=== PATIENT | female | born 1995 | race Caucasian/White ===

== ENCOUNTER 2022-10-07 06:57 | Outpatient (OUT) | payer OTHER, SELFPAY ==
[2022-10-07 07:23] LABS: Basophils Absolute Auto 0.1 10^3/uL (0.0-0.1); Basophils Percent Auto 0.8 % (0.2-2.0); Eosinophils Absolute Auto 0.1 10^3/uL (0.0-0.7); Eosinophils Percent Auto 1.3 % (0.9-7.0); Hematocrit 45.2 % (36.0-48.0); Hemoglobin 14.7 g/dL (12.0-16.0); Immature Granulocytes Abs Auto 0.04 10^3/uL (0.00-0.03); Immature Granulocytes Pct Auto 0.5 % (0.0-0.5); Lymphocytes Absolute Auto 1.9 10^3/uL (1.2-3.8); Lymphocytes Percent Auto 22.1 % (20.5-60.0); Mean Corpuscular HGB Conc 32.5 g/dL (29.9-35.2); Mean Corpuscular Hemoglobin 29.1 pg (26.7-34.0); Mean Corpuscular Volume 89.5 fL (81.0-99.0); Mean Platelet Volume 9.4 fL (9.5-13.5); Monocytes Absolute Auto 0.5 10^3/uL (0.3-0.8); Monocytes Percent Auto 6.1 % (1.7-12.0); Neutrophils Absolute Auto 5.8 10^3/uL (1.4-6.5); Neutrophils Percent Auto 69.2 % (43.0-75.0); Platelet Count 305 10^3/uL (150-450); Red Blood Count 5.05 10^6/uL (4.20-5.40); Red Cell Distribution Width 13.1 % (11.0-15.0); White Blood Count 8.4 10^3/uL (4.0-11.0)
[2022-10-07 10:09] LABS: Alanine Aminotransferase 30 U/L (14-59); Albumin Globulin Ratio 0.9; Albumin Level 3.4 g/dL (3.4-5.0); Alkaline Phosphatase 65 U/L (46-116); Anion Gap 11.4; Aspartate Amino Transferase 14 U/L (15-37); BUN Creatinine Ratio 11.4; Bilirubin Total 0.4 mg/dL (0.2-1.0); Calcium 8.9 mg/dL (8.5-10.1); Carbon Dioxide 27.7 mmol/L (21.0-32.0); Chloride 105 mmol/L (98-107); Chol HDL Ratio 2.8; Cholesterol 141 mg/dL (<=200); Estimated GFR (African America >60 (>=60); Estimated GFR (Non-African Ame >60 (>=60); Free T3 2.61 pg/mL (2.18-3.98); Globulin 3.6 g/dL; Glucose 104 mg/dL (74-106); HDL Cholesterol 50 mg/dL (40-60); LDL Cholesterol Calculated 78.4 mg/dL; Potassium 4.1 mmol/L (3.5-5.1); Sodium 140 mmol/L (136-145); Triglycerides 63 mg/dL (<=150); VLDL CHOLESTEROL 12.6 mg/dL
[2022-10-07 10:51] LABS: Estimated Average Glucose 413 mg/dL; Glycohemoglobin A1C >16.0 % (4.5-6.2)
[2022-10-08 11:09] LABS: Insulin 18.7 uIU/mL (2.6-24.9)
== END 2022-10-07 06:58 | disposition home or self-care (01) ==
LOC: LAB 07:01
PROVIDERS: PCP Family Medicine; Visit Provider Family Medicine
DX: Z00.00 Encounter for general adult medical examination without abnormal findings (principal)
CPT/HCPCS: 36415; 80053; 80061; 83036; 83525; 84436; 84443; 84481; 85025

== ENCOUNTER 2023-02-03 11:51 | Outpatient (OUT) | payer OTHER, SELFPAY ==
--- NOTE | 2023-02-03 12:09 | XR_ITS ---
The [address] [address] Patient Name: DEION HUITRON MRN: [id number] date: 1995 Sex: F Assigned Patient Location: LAB Current Patient Location: LAB Accession/Order Number: [id number] Exam Date: 02/03/2023 12:10 Report Date: 02/03/2023 13:01 At the request of: MIKE ALICIA Procedure: XR chest 2V EXAM: XR chest 2V HISTORY: Acute Cough R05.1 for the past 4 days. COMPARISON: 06/06/2021 TECHNIQUE: Upright PA and lateral chest x-ray FINDINGS: The heart is not enlarged and the vasculature is not distended. No acute infiltrate, effusion or pneumothorax is identified. There is been interval clearing of the left lung base. The osseous structures are grossly intact. XR/XR chest 2V IMPRESSION: Interval clearing of the left lung base. There is no evidence of an acute infiltrate or cardiac decompensation at this time, and the overall appearance of the chest is otherwise unchanged. Electronically authenticated by: ARIS HOLLAND Date: 02/03/2023 13:01
[2023-02-03 12:10] LABS: Basophils Absolute Auto 0.1 10^3/uL (0.0-0.1); Basophils Percent Auto 0.5 % (0.2-2.0); Eosinophils Absolute Auto 0.1 10^3/uL (0.0-0.7); Eosinophils Percent Auto 1.1 % (0.9-7.0); Hematocrit 46.3 % (36.0-48.0); Hemoglobin 14.9 g/dL (12.0-16.0); Immature Granulocytes Abs Auto 0.03 10^3/uL (0.00-0.03); Immature Granulocytes Pct Auto 0.3 % (0.0-0.5); Lymphocytes Absolute Auto 1.9 10^3/uL (1.2-3.8); Lymphocytes Percent Auto 16.8 % (20.5-60.0); Mean Corpuscular HGB Conc 32.2 g/dL (29.9-35.2); Mean Corpuscular Hemoglobin 28.5 pg (26.7-34.0); Mean Corpuscular Volume 88.7 fL (81.0-99.0); Mean Platelet Volume 9.7 fL (9.5-13.5); Monocytes Absolute Auto 0.7 10^3/uL (0.3-0.8); Monocytes Percent Auto 5.9 % (1.7-12.0); Neutrophils Absolute Auto 8.3 10^3/uL (1.4-6.5); Neutrophils Percent Auto 75.4 % (43.0-75.0); Platelet Count 322 10^3/uL (150-450); Red Blood Count 5.22 10^6/uL (4.20-5.40); Red Cell Distribution Width 13.3 % (11.0-15.0)
[2023-02-03 12:29] LABS: Alanine Aminotransferase 30 U/L (14-59); Albumin Globulin Ratio 0.9; Albumin Level 3.5 g/dL (3.4-5.0); Alkaline Phosphatase 72 U/L (46-116); Anion Gap 13.7; Aspartate Amino Transferase 23 U/L (15-37); BUN Creatinine Ratio 14.8; Bilirubin Total 0.4 mg/dL (0.2-1.0); Calcium 8.8 mg/dL (8.5-10.1); Carbon Dioxide 28.4 mmol/L (21.0-32.0); Chloride 101 mmol/L (98-107); Estimated GFR (African America >60 (>=60); Estimated GFR (Non-African Ame >60 (>=60); Globulin 4.1 g/dL; Glucose 94 mg/dL (74-106); Potassium 4.1 mmol/L (3.5-5.1); Sodium 139 mmol/L (136-145); Total Protein 7.6 g/dL (6.4-8.2)
[2023-02-03 12:35] LABS: SARS-CoV-2 Ag NEGATIVE (NEGATIVE)
[2023-02-03 14:55] LABS: SARS-CoV-2 NAA NOT DETECTED (NOT DETECTE)
== END 2023-02-03 11:52 | disposition home or self-care (01) ==
LOC: LAB 11:52
PROVIDERS: PCP Family Medicine; Visit Provider Family Medicine
DX: R05.1 Acute cough (principal)
CPT/HCPCS: 36415; 71046; 80053; 85025; 87635; 87811

== ENCOUNTER 2023-03-08 15:18 | Outpatient (REF) | payer OTHER, SELFPAY ==
[2023-03-08 16:31] LABS: SARS-CoV-2 Ag NEGATIVE (NEGATIVE)
[2023-03-09 15:49] LABS: SARS-CoV-2 NAA NOT DETECTED (NOT DETECTE)
== END 2023-03-08 15:19 | disposition home or self-care (01) ==
LOC: LAB 15:18
PROVIDERS: PCP Family Medicine; Visit Provider Family Medicine
DX: J06.9 Acute upper respiratory infection, unspecified (principal)
CPT/HCPCS: 87635; 87811

== ENCOUNTER 2023-03-28 15:22 | Outpatient (REF) | payer OTHER, SELFPAY ==
--- OUTSIDE RECORDS SUMMARY | 2023-03-28 15:28 | XMS_ITS | CCD ---
Author Name Unknown Address [address] [facility] [address] [place] [address] Organization [facility] Care Team Providers Care Cpht Name Role Phone JENNIFER VIVAR Attending Unavailable HOY, MIKE Primary Care Unavailable Ravin, Mike M Primary Care Provider MIKE OSULLIVAN M Primary Care Unavailable JENNIFER HEDRICK Admitting Unavailable JENNIFER HEDRICK Attending Unavailable RAVIN, MIKE M Primary Care Unavailable BRENTON HORTON Admitting Unavailable BRENTON HORTON Attending Unavailable LARISSA SAMPSON Consulting Unavail able KAT ABEBE Admitting Unavailable KAT, ABEBE Attending Unavailable Ravin Mike M Primary Care Provider Rony Osullivanlas Primary Care Provider [phone] Mike Osullivan MD Primary Care Provider [phone] VADIM LOVELACE Referring Unavailable HOY, MIKE M Primary Care Unavailable HOY, MIKE Admitting Unavailable HOY, MIKE Attending Unavailable HOY, MIKE Primary Care Unavailable HOY, MIKE Admitting Unavailable HOY, MIKE Attending Unavailable HOY, MIKE Consulting Unavailable HOY, MIKE Primary Care Unavailable HOY, MIKE Admitting Unavailable HOY, MIKE Attending Unavailable HOY, MIKE Consulting Unavailable HOY, MIKE Primary Care Unavailable HOY, MIKE Admitting Unavailable HOY, MIKE Attending Unavailable HOY, MIKE Consulting Unavailable HOY, MIKE Primary Care Unavailable HOY, MIKE Admitting Unavailable HOY, MIKE Primary Care Unavailable HOY, MIKE Attending Unavailable HOY, MIKE Consulting Unavailable HOY, MIKE Admitting Unavailable HOY, MIKE Attending Unavailable HOY, MIKE Consulting Unavailable HOY, MIKE Primary Care Unavailable DR LIN IBANEZ V Consulting Unavailable CORNELL SPRING Admitting Unavailable CORNELL SPRING Attending Unavailable HOY, MIKE Primary Care Unavailable DR ÁNGEL BABIN Admitting Stiven BABIN, DR ÁNGEL Garcia Attending Stiven BABIN, DR ÁNGEL Garcia Consulting MIKE Huffman Primary Care Unavailable ADALID PEREZ Consulting Unavailable Allergies Allergy Classification Reported Allergen(s) Allergy Type Date of Onset Reaction(s) Facility (5 sources) docosanol; Translations: [Unknown] Drug Allergy 9 Swelling [facility] Repository (1 source) docosanol Drug Allergy [facility] Repository (1 source) Sulfamethoxazole / Trimethoprim Drug Allergy 0 [facility] Repository Medications Current Medications Medication Drug Class(es) Dates Sig (Normalized) Sig (Original) acetaminophen 325 mg oral tablet (2 sources) Start: 11-28-2018 End: 11-28-2018 650 mg, Oral, EVERY 4 HOURS PRN, Fever, For temp greater than 100.5 F (38 C), Starting Tu11/28/18 at 2353 Maximum dose of acetaminophen is 4000 mg from all sources in 24 hours. cefTRIAXone (ROCEPHIN) 1 g in sterile water 10 mL IV syringe (1 source) Start: 11-29-2018 cefTRIAXone (ROCEPHIN) 1 g in sterile water 10 mL IV syringe docusate sodium 100 mg oral capsule (4 sources) Start: 11-29-2018 take 1 capsule by mouth once daily docusate sodium (COLACE, DULCOLAX) 100 MG CAPS Take 100 mg by mouth daily 30 capsule 0 12/01/2018 Active 0.3 ml enoxaparin sodium 100 mg/ml prefilled syringe (1 source) Low Molecular Weight Heparin Start: 11-29-2018 enoxaparin (LOVENOX) injection 30 mg ergocalciferol 1.25 mg oral capsule (2 sources) Provitamin D2 Compound Start: 01-28-2020 take 1 capsule by mouth every week vitamin D (ERGOCALCIFEROL) 1.25 MG (06438 UT) CAPS capsule Take 1 capsule by mouth once a week 4 capsule 5 01/28/2020 Active ferrous sulfate 325 mg oral tablet (4 sources) Start: 12-01-2018 take 1 tablet by mouth once daily at breakfast ferrous sulfate 325 (65 Fe) MG tablet Take 1 tablet by mouth daily (with breakfast) 30 tablet 0 12/01/2018 Active Start: 11-29-2018 ferrous sulfat e tablet 325 mg hydrOXYzine pamoate 25 mg oral capsule (3 sources) Antihistamine take 1 capsule by mouth three times daily as needed for anxiety hydrOXYzine (VISTARIL) 25 MG capsule Take 25 mg by mouth 3 times daily as needed for Anxiety 0 Active ibuprofen 600 mg oral tablet (1 source) Nonsteroidal Anti-inflammatory Drug Start: ibuprofen (ADVIL;MOTRIN) tablet 600 mg ketoconazole 20 mg/ml topical cream (1 source) Azole Antifungal Start: ketoconazole (NIZORAL) 2 % cream Apply topically twice daily. 30 g 0 01/29/2021 Active magnesium hydroxide 80 mg/ml oral suspension (1 source) Start: take 30 mL by mouth once daily as needed for constipation 30 mL, Oral, DAILY PRN, Constipation, Starting Tue11/28/18 at 2353 First line therapy for constipation. 2 ml ondansetron 2 mg/ml injection (1 source) Serotonin-3 Receptor Antagonist Start: 4 mg, Intravenous, EVERY 6 HOURS PRN, Nausea, Starting Tue11/28/18 at 2353 polyethylene glycol 3350 34391 mg powder for oral solution (1 source) Osmotic Laxative Start: End: take 17 g by mouth once daily as needed for constipation polyethylene glycol (GLYCOLAX) powder Take 17 g by mouth daily as needed (constipation) 510 g 0 11/30/2018 12/30/2018 Active MV-Min-Fe Fum-FA-DHA ( 1 PO) (3 sources) take 1 tablet by mouth once daily, then take 1 tablet by mouth MV-Min-Fe Fum-FA-DHA ( 1 PO) Take 1 tablet by mouth daily 0 Active vitamin with Ca-Iron-FA 27-1 mg Tab (1 source) take 1 tablet by mouth once daily vitamin with Ca-Iron-FA 27-1 mg Tab Take 1 tablet by mouth daily . 0 Active 3 ml sodium chloride 9 mg/ml injection (6 sources) Start: 10 mL, Intravenous, EVERY 12 HOURS SCHEDULED (2 times per day), First dose on Tue11/29/18 at 0900 Start: 11-29-2018 Intravenous, a t 125 mL/hr, CONTINUOUS, Starting Tue11/29/18 at 0015 Start: 11-28-2018 take 10 mL intraveno us route once as needed 10 mL, Intravenous, PRN, Line Care, After every IV line use, Starting 11/28/18 at 2353 Start: 11-28-2018 sodium chlorid e flush 0.9 % injection 10 mL Start: 11-28-2018 End: 11-28-2018 0.9 % sodium chloride IV keisha us 1,986 mL sulfamethoxazole 800 mg / trimethoprim 160 mg oral tablet (1 source) Dihydrofolate Reductase Inhibitor Antibacterial, Sulfonamide Antimicrobial Start: 11-30-2018 End: 12-10-2018 take 1 tablet by mouth twice daily sulfamethoxazole-trimethoprim (BACTRIM DS) 800-160 MG per tablet Take 1 tablet by mouth 2 times daily for 10 days 20 tablet 0 11/30/2018 12/10/2018 Active valACYclovir 500 mg oral tablet (4 sources) Herpesvirus Nucleoside Analog DNA Polymerase Inhibitor, Herpes Simplex Virus Nucleoside Analog DNA Polymerase Inhibitor, Herpes Zoster Virus Nucleoside Analog DNA Polymerase Inhibitor take 2 tablets by mouth three times daily valACYclovir (VALTREX) 500 MG tablet Take 1,000 mg by mouth 3 times daily 0 Active take 1 tablet by mouth twice stanislav ly valACYclovir (VALTREX) 1000 MG tablet Take 1,000 mg by mouth 2 (two) times a day . 0 Active vancomycin (VANCOCIN) 1,500 mg in dextrose 5 % 500 mL IVPB (1 source) Start: 11-30-2018 vancomycin (VA NCOCIN) 1,500 mg in dextrose 5 % 500 mL IVPB vancomycin (VANCOCIN) intermittent dosing (placeholder) (1 source) Start: 11-28-2018 vancomycin (VA NCOCIN) intermittent dosing (placeholder) Completed/Discontinued Medications Medication Drug Class(es) Dates Sig (Normalized) Sig (Original) calcium chloride 0.0014 meq/ml / potassium chloride 0.004 meq/ml / sodium chloride 0.103 meq/ml / sodium lactate 0.028 meq/ml injectable solution (1 source) Start: 11-28-2018 End: 11-29-2018 lactated ringers infusion 1,000 mL 50 ml clindamycin 18 mg/ml injection (2 sources) Lincosamide Antibacterial Start: 11-28-2018 End: 11-29-2018 clindamycin (CLEOCIN) 900 mg in dextrose 5 % 50 mL IVPB gentamicin (GARAMYCIN) 120 mg in dextrose 5 % 100 mL IVPB (1 source) Start: 11-28-2018 End: 11-28-2018 gentamicin (GARAMYCIN) 120 mg in dextrose 5 % 100 mL IVPB gentamicin (GARAMYCIN) 214 mg in dextrose 5 % 100 mL IVPB (1 source) Start: 11-29-2018 End: 11-29-2018 gentamicin (GARAMYCIN) 214 mg in dextrose 5 % 100 mL IVPB microencapsulated potassium chloride 20 meq extended release oral tablet (1 source) Start: 11-29-2018 End: 11-29-2018 potassium chloride (KLOR-CON M) extended release tablet 40 mEq vancomycin 750 mg injection (2 sources) Glycopeptide Antibacterial Start: 11-29-2018 End: 11-29-2018 vancomycin (VANCOCIN) 750 MG injection Start: 11-29-2018 End: 11-29-2018 vancomycin (VANCOCIN) 1 g in jection vancomycin (VANCOCIN) 1,750 mg in dextrose 5 % 500 mL IVPB (1 source) Start: 11-28-2018 End: 11-30-2018 vancomycin (VANCOCIN) 1,750 mg in dextrose 5 % 500 mL IVPB Problems Active Problems Problem Classification Problem Date Documented Da te Episodic/Chronic Anxiety disorders (5 sources) Anxiety disorder; Translations: [Anxiety disorder, unspecified] Onset: 09-22-2021 11-29-2018 Chronic Asthma (9 sources) Asthma; Translations: [Unspecified asthma, uncomplicated] Onset: 07-30-2021 11-29-2018 Chronic Congestive heart failure; nonhypertensive (1 source) Unspecified diastolic (congestive) heart failure; Translations: [UNSPECIFIED DIASTOLIC HEART FAILURE] Onset: 12-02-2021 Chronic Early or threatened labor (3 sources) Premature delivery; Translations: [ labor with delivery, unspecified trimester, not applicable or unspecified] 11-25-2018 Episodic Hemorrhage during ; abruptio placenta; placenta previa (1 source) Bleeding from female genital tract during ; Translations: [Vaginal bleeding in ] Hypertension with complications and secondary hypertension (1 source) Hypertensive heart disease with heart failure; Translations: [HTN HEART DISEASE W/HEART FAIL] Onset: 12-02-2021 Chronic Menstrual disorders (1 source) Disorder of menstruation; Translations: [Irregular menstruation, unspecified] Chronic Residual codes; unclassified (3 sources) Tobacco user; Translations: [Tobacco abuse] Onset: 11-29-2018 11-29-2018 Chronic Skin and subcutaneous tissue infections (3 sources) Cellulitis of right lower limb; Translations: [Cellulitis of right leg] Onset: 11-29-2018 11-29-2018 Substance-related disorders (1 source) Nicotine dependence, cigarettes, uncomplicated; Translations: [NICOTINE DEPEND CIGARETTES UNCOMP] Onset: 09-22-2021 Chronic Unclassified (4 sources) LOW BACK PAIN, UNSPECIFIED; Translations: [LOW BACK PAIN, UNSPECIFIED] Onset: 09-22-2021 Unclassified (4 sources) CONTACT W/AND (SUSP) EXPOS COVID-19; Translations: [CONTACT W/AND (SUSP) EXPOS COVID-19] Onset: 08-04-2021 Unclassified (1 source) COUGH, UNSPECIFIED; Translations: [COUGH, UNSPECIFIED] Onset: 03-20-2022 Viral infection (1 source) COVID-19; Translations: [COVID-19] Onset: 03-20-2022 Past or Other Problems Problem Classification Problem Date Documented Da te Episodic/Chronic Cardiac dysrhythmias (1 source) Palpitations; Translations: [PALPITATIONS] Onset: 08-04-2021 Episodic Deficiency and other anemia (4 sources) Anemia; Translations: [Anemia, unspecified] Onset: 11-29-2018 11-29-2018 Episodic Deficiency and other anemia (1 source) Anemia, unspecified; Translations: [ANEMIA UNSPECIFIED] Onset: 12-02-2021 Episodic Diabetes mellitus without complication (1 source) Other abnormal glucose; Translations: [OTHER ABNORMAL GLUCOSE] Onset: 12-02-2021 Episodic Hemorrhage during ; abruptio placenta; placenta previa (3 sources) Hemorrhage in early ; Translations: [Antepartum hemorrhage] Onset: 11-24-2018 11-24-2018 Episodic Other female genital disorders (1 source) Vaginal bleeding; Translations: [Abnormal uterine and vaginal bleeding, unspecified] Resolved: 11-25-2018 11-25-2018 Chronic Other female genital disorders (2 sources) Vaginal bleeding; Translations: [Vaginal bleeding] Resolved: 11-25-2018 11-25-2018 Episodic Other upper respiratory disease (1 source) Nasal congestion; Translations: [NASAL CONGESTION] Onset: 03-20-2022 Episodic Other upper respiratory infections (1 source) Acute recurrent frontal sinusitis; Translations: [ACUTE RECURRENT FRONTAL SINUSITIS] Onset: 08-04-2021 Episodic Residual codes; unclassified (1 source) Tobacco user; Translations: [Tobacco use] Onset: 11-29-2018 11-29-2018 Episodic Residual codes; unclassified (4 sources) Generalized edema; Translations: [GENERALIZED EDEMA] Onset: 12-04-2021 Episodic Residual codes; unclassified (4 sources) Localized edema; Translations: [LOCALIZED EDEMA] Onset: 11-25-2021 Episodic Septicemia (except in labor) (4 sources) Sepsis; Translations: [Sepsis, unspecified organism] Onset: 11-28-2018 11-29-2018 Episodic Skin and subcutaneous tissue infections (1 source) Cellulitis of right lower limb; Translations: [Cellulitis of right lower limb] Onset: 11-29-2018 11-29-2018 Episodic Sprains and strains (1 source) Sprain of unspecified parts of lumbar spine and pelvis, initial encounter; Translations: [SPRAIN UNS PARTS LUMB SPN PELV INIT] Onset: 09-22-2021 Episodic Unclassified (1 source) LOW BACK PAIN, UNSPECIFIED; Translations: [LOW BACK PAIN, UNSPECIFIED] Onset: 06-16-2022 Unclassified (1 source) CONTACT W/AND (SUSP) EXPOS COVID-19; Translations: [CONTACT W/AND (SUSP) EXPOS COVID-19] Onset: 03-18-2022 Urinary tract infections (4 sources) Urinary tract infectious disease; Translations: [Urinary tract infection, site not specified] Onset: 11-29-2018 Resolved: 12-29-2018 11-29-2018 Episodic Results Test Name Value Interpretation Reference Range Facility XR Chest 2 Views*on 05-13-19 23 XR Chest 2 Views* HISTORY: Cough and shortness of breath COMPARISON: None available TECHNIQUE: Frontal and lateral views of the chest FINDINGS: The cardiomediastinal silhouette is within normal limits. No pneumothorax, pleural effusion, or consolidation. Bones of the thorax appear intact. IMPRESSION: No radiographic evidence of acute intrathoracic process. Report reported and signed by Hitesh Norman on 05/13/2022 1439 Normal [facility] Covid-19 PCR ([facility])on 02-19 SARS-CoV-2 (COVID-19) RNA CLIFF+probe Ql (Unsp spec) Detected Critically abnormal NOT DETECTED [facility] Comment on above: Result Comment: This test is not yet approved or cleared by the [place] FDA. When there are no FDA-approved or cleared tests available, and other criteria are met, FDA can make tests available under an emergency access mechanism called an Emergency Use Authorization (EUA). The EUA for this test is supported by the [place] of Health and Human Service's declaration that circumstances exist to justify the emergency use of in vitro diagnostics for the detection and/or diagnosis of the virus that causes COVID-19. This EUA will remain in effect for the duration of the COVID-19 declaration justifying emergency of IVDs, unless it is terminated or revoked by the FDA (after which the test may no longer be used). Performed By: #### C VDTB #### [facility] [address] [place] [address] Dr. Lilli Soriano INFLUENZA A AND B AGon 03-18 [facility] SEE BELOW Normal [facility] Comment on above: Result Comment: Nega tive for Flu A protein angiten. Infection due to Flu A cannot be ruled out. Flu A angiten in the sample may be below the detection limit of the test. Performed By: #### I NFLUAB #### [facility] [address] [place] [address] Dr. Lilli Sor[facility] SEE BELOW Normal [facility] Comment on above: Result Comment: Nega tive for Flu B protein antigen. Infection due to Flu B cannot be ruled out. Flu B antigen in the sample may be below the detection limit of the test. Performed By: #### I NFLUAB #### [facility] [address] [place] [address] Dr. Lilli Soriano INFLUENZA A AG Negative Normal NEGATIVE SEE COMMENT [facility] Comment on above: Performed By: #### I NFLUAB #### [facility] [address] [place] [address] Dr. Lilli Soriano INFLUENZA B AG Negative Normal NEGATIVE SEE COMMENT [facility] Comment on above: Performed By: #### I NFLUAB #### [facility] [address] [address] [address] Lilli Soriano US Pelvic, Transvaginalon US Pelvic, Transvaginal FINDINGS: Transabdominal and transvaginal imaging was performed. Uterus 8.7 x 4.9 x 3.9 cm Endometrium 2 mm Right Ovary2.7 x 2.2 x 3.4 cm Left Ovary5.0 x 3.3 x 3.7 cm (cyst) Normal uterine orientation and morphology. Normal myometrium and endometrium. Normal right ovary. Left ovarian 2.0 x 2.2 x 2.6 cm benign simple cyst. No pelvic mass or pelvic fluid. IMPRESSION: 1. Left ovarian simple cyst. 2. Normal uterus. Report reported and signed by Burton Mcdaniel on 12/24/2021 0958 Normal [facility] Covid-19 PCR ([facility])on 11-21 SARS-CoV-2 (COVID-19) RNA CLIFF+probe Ql (Unsp spec) Not detected Normal NOT DETECTED [facility] Comment on above: Result Comment: This test is not yet approved or cleared by the [place] FDA. When there are no FDA-approved or cleared tests available, and other criteria are met, FDA can make tests available under an emergency access mechanism called an Emergency Use Authorization (EUA). The EUA for this test is supported by the [place] of Health and Human Service's (HHS's) declaration that circumstances exist to justify the emergency use of in vitro diagnostics for the detection and/or diagnosis of the virus that causes COVID-19. This EUA will remain in effect (meaning this test can be used) for the duration of the COVID-19 declaration justifying emergency of IVDs, unless it is terminated or revoked by FDA (after which the test may no longer be used). When diagnostic testing is negative, the possibility of a false negative should be considered in the context of a patient's recent exposures and the presence of clinical signs and symptoms consistent with SARS-CoV-2. Performed By: #### C VDTBH #### [facility] [address] [id number] [address] Lilli Soriano VC VENOUS REFLUX GRACIELA LMTon 0 12-04-2021 VC VENOUS REFLUX GRACIELA LMT Patient: DEION CUMMINGS Exam Date: 12/04/2021 : 1995 Gender:F Ordering : DR MIKE OSULLIVAN . Admission #: [id number] Family : Order #: [id number] CLICK HERE TO VIEW EXAM RADIOLOGY REPORT PROCEDURE: VEIN CENTER ULTRASOUND VENOUS REFLUX BILATERAL LIMTED COMPARISON: None. INDICATIONS: Localized edema R60.0 TECHNIQUE: Duplex imaging of the lower extremity to assess the deep and superficial venous system for the presence of deep or superficial venous incompetence and to document the location and severity of disease. The study includes evaluation of the great saphenous vein (GSV), anterior accessory saphenous vein (AASV) and small saphenous vein (SSV). Patient scanned in reverse Trendelenburg and standing. FINDINGS: RIGHT LOWER EXTREMITY: Saphenofemoral Junction Reflux: Yes 9.6mm 0.6 sec GSV: Diam (mm) Reflux/ Time (sec) Proximal Thigh 4.3 Yes 0.5 Mid Thigh 5.0 Yes 0.4 Distal Thigh 7.8 Yes 0.7 Prox Calf 3.6 Yes 0.7 Mid Calf 3.2 Yes 0.4 Saphenopopliteal Junction Reflux: 7.2mm Yes 1.2 SSV: Proximal Calf 4.7 Yes 0.5 Mid Calf 4.0 No AASV: Proximal Thigh 5.2 Yes 0.7 Mid Thigh 3.5 Yes 0.4 Distal Thigh Thrombi: No acute or chronic thrombus visualized. Compressibility: Normal Flow: Normal Preforator: Dist/med calf 3.1mm with 0s reflux. Dist/med calf 3.2mm with 0.5s reflux. Tech Note: Incompetent SFJ and SPJ. Patent varicose vein mid/med calf 2.6mm with 0.4s reflux. Patent varicose vein mid/ant calf 2.1mm with 0.5s reflux. Patent varicose vein dist/med calf 3.03 mm with 0s reflux. LEFT LOWER EXTREMITY: Saphenofemoral Junction Reflux: Yes 10.7 mm 2.2 sec GSV: Diam (mm) Reflux/Time (sec) Proximal Thigh 7.1 Yes 1.4 Mid Thigh 4.9 No Distal Thigh 8.3 Yes 0.9 Prox Calf 3.9 Yes 0.9 Mid Calf 3.2 Yes 1.0 Saphenopopliteal Junction Relux: 7.4 mm Yes 1.4 SSV: Proximal Calf 5.6 Yes 2.6 Mid Calf 4.7 No AASV: Proximal Thigh 9.4 Yes 1.1 Mid Thigh 4.7 Yes 1.0 Distal Thigh Thrombi: No acute or chronic thrombus visualized. Compressibility: Normal Flow: Normal Dispatch Officer: Dist/med calf 2.1mm with 0s reflux. Dist/med calf 6.1mm with 0s reflux. Tech Note: Incompetent SFJ and SPJ. Patent varicose vein prox/med calf 3.4mm with 0.4s reflux. CONCLUSION: 1. Mild bilateral great saphenous vein venous insufficiency, left greater than right 2. Mild right and moderate left small saphenous vein venous insufficiency 3. Minimal right and mild left anterior accessory saphenous vein venous insufficiency 4. Incompetent bilateral varicose veins Dictated by: Lin Ibanez MD on 12/04/2021 at 09:36 Approved by: Lin Ibanez MD on 12/04/2021 at 09:37 Normal [facility] INSULINon 11-26-2021 Insulin 21.8 uIU/mL Normal 2.6-24.9 [facility] Comment on above: Performed By: #### I NSULIN #### [facility] [address] [address] [address] Lilli Soriano T4, T3U, FTI LABCORPon 11-26 Free Thyroxine Index 2.2 Normal 1.2-4.9 [facility] Comment on above: Performed By: #### B ORTHODONTIC LABORATORY TECHNICIAN, TSH, LIPID, CMP #### [facility] [address] [address] [address] Lilli Soriano T3 Uptake 30 % Normal 24-39 [facility] Comment on above: Performed By: #### B ORTHODONTIC LABORATORY TECHNICIAN, TSH, LIPID, CMP #### [facility] [address] [address] [address] Lilli Soriano T4 [Mass/Vol] 7.3 ug/dL Normal 4.5-12.0 [facility] Comment on above: Performed By: #### B ORTHODONTIC LABORATORY TECHNICIAN, TSH, LIPID, CMP #### [facility] [address] [address] [address] Lilli Soriano BNPon 11-25-2021 Natriuretic peptide B (Bld) [Mass/Vol] 35.0 pg/mL Normal <=450.0 [facility] Comment on above: Performed By: #### B ORTHODONTIC LABORATORY TECHNICIAN, TSH, LIPID, CMP #### [facility] [address] [place] [address] Dr. Lilli Soriano CBC AUTO DIFFon 11-25-2021 BASO # 0.0 103/ul Normal 0.0-0.1 [facility] Comment on above: Performed By: #### B ORTHODONTIC LABORATORY TECHNICIAN, TSH, LIPID, CMP #### [facility] [address] [place] [address] Dr. Lilli Soriano Basophils/100 WBC (Bld) 0.5 % Normal 0.2-2.0 [facility] Comment on above: Performed By: #### B ORTHODONTIC LABORATORY TECHNICIAN, TSH, LIPID, CMP #### [facility] [address] [place] [address] Dr. Lilli Soriano EO # 0.1 103/ul Normal 0.0-0.7 [facility] Comment on above: Performed By: #### B ORTHODONTIC LABORATORY TECHNICIAN, TSH, LIPID, CMP #### [facility] [address] [place] [address] Dr. Lilli Soriano Eosinophils/100 WBC (Bld) 1.7 % Normal 0.9-7.0 [facility] Comment on above: Performed By: #### B ORTHODONTIC LABORATORY TECHNICIAN, TSH, LIPID, CMP #### [facility] [address] [place] [address] Dr. Lilli Soriano Erythrocyte distribution width (RBC) [Ratio] 13.6 % Normal 11.0-15.0 [facility] Comment on above: Performed By: #### B ORTHODONTIC LABORATORY TECHNICIAN, TSH, LIPID, CMP #### [facility] [address] [place] [address] Dr. Lilli Soriano Hematocrit (Bld) [Volume fraction] 42.6 % Normal 36.0-48.0 [facility] Comment on above: Performed By: #### B ORTHODONTIC LABORATORY TECHNICIAN, TSH, LIPID, CMP #### [facility] [address] [place] [address] Dr. Lilli Soriano Hemoglobin (Bld) [Mass/Vol] 13.6 g/dL Normal 12.0-16.0 [facility] Comment on above: Performed By: #### B ORTHODONTIC LABORATORY TECHNICIAN, TSH, LIPID, CMP #### [facility] [address] [place] [address] Dr. Lilli Soriano IG # 0.04 10e3/ul Critically high 0.00-0.03 [facility] Comment on above: Performed By: #### B ORTHODONTIC LABORATORY TECHNICIAN, TSH, LIPID, CMP #### [facility] [facility] [address] [place] [address] Dr. Lilli Soriano IG % 0.5 % Normal 0.0-0.5 [facility] Comment on above: Performed By: #### B ORTHODONTIC LABORATORY TECHNICIAN, TSH, LIPID, CMP #### [facility] [address] [place] [address] Dr. Lilli Soriano LYMPH # 1.7 103/ul Normal 1.2-3.8 [facility] Comment on above: Performed By: #### B ORTHODONTIC LABORATORY TECHNICIAN, TSH, LIPID, CMP #### [facility] [address] [place] [address] Dr. Lilli Soriano Lymphocytes/100 WBC (Bld) 19.9 % Critically low 20.5-60.0 [facility] Comment on above: Performed By: #### B ORTHODONTIC LABORATORY TECHNICIAN, TSH, LIPID, CMP #### [facility] [address] [place] [address] Dr. Lilli Soriano MANUAL DIFF REQ NO Normal [facility] Comment on above: Performed By: #### B ORTHODONTIC LABORATORY TECHNICIAN, TSH, LIPID, CMP #### [facility] [address] [place] [address] Dr. Lilli Soriano MCH (RBC) [Entitic mass] 28.0 pg Normal 26.7-34.0 [facility] Comment on above: Performed By: #### B ORTHODONTIC LABORATORY TECHNICIAN, TSH, LIPID, CMP #### [facility] [address] [place] [address] Dr. Lilli Soriano MCHC (RBC) [Mass/Vol] 31.9 g/dL Normal 29.9-35.2 [facility] Comment on above: Performed By: #### B ORTHODONTIC LABORATORY TECHNICIAN, TSH, LIPID, CMP #### [facility] [address] [place] [address] Dr. Lilli Soriano MCV (RBC) [Entitic vol] 87.7 fL Normal 81.0-99.0 [facility] Comment on above: Performed By: #### B ORTHODONTIC LABORATORY TECHNICIAN, TSH, LIPID, CMP #### [facility] [address] [place] [address] Dr. Lilli Soriano MONO # 0.5 103/ul Normal 0.3-0.8 [facility] Comment on above: Performed By: #### B ORTHODONTIC LABORATORY TECHNICIAN, TSH, LIPID, CMP #### [facility] [address] [place] [address] Dr. Lilli Soriano Monocytes/100 WBC (Bld) 5.9 % Normal 1.7-12.0 [facility] Comment on above: Performed By: #### B ORTHODONTIC LABORATORY TECHNICIAN, TSH, LIPID, CMP #### [facility] [address] [place] [address] Dr. Lilli Soriano NEUT # 6.1 103/ul Normal 1.4-6.5 [facility] Comment on above: Performed By: #### B ORTHODONTIC LABORATORY TECHNICIAN, TSH, LIPID, CMP #### [facility] [address] [place] [address] Dr. Lilli Soriano Neutrophils/100 WBC (Bld) 71.5 % Normal 43.0-75.0 [facility] Comment on above: Performed By: #### B ORTHODONTIC LABORATORY TECHNICIAN, TSH, LIPID, CMP #### [facility] [address] [place] [address] Dr. Lilli Soriano Platelet mean volume (Bld) [Entitic vol] 9.7 fL Normal 9.5-13.5 [facility] Comment on above: Performed By: #### B ORTHODONTIC LABORATORY TECHNICIAN, TSH, LIPID, CMP #### [facility] [address] [place] [address] Dr. Lilli Soriano PLT 289 103/ul Normal 150-450 [facility] Comment on above: Performed By: #### B ORTHODONTIC LABORATORY TECHNICIAN, TSH, LIPID, CMP #### [facility] [address] [place] [address] Dr. Lilli Soriano RBC 4.86 106/ul Normal 4.20-5.40 [facility] Comment on above: Performed By: #### B ORTHODONTIC LABORATORY TECHNICIAN, TSH, LIPID, CMP #### [facility] [address] [place] [address] Dr. Lilli Soriano WBC 8.5 103/ul Normal 4.0-11.0 [facility] Comment on above: Performed By: #### B ORTHODONTIC LABORATORY TECHNICIAN, TSH, LIPID, CMP #### [facility] [address] [place] [address] Dr. Lilli Soriano CULTURE URINEon 11-25-2021 CULTURE URINE Culture Observations : LIGHT GROWTH OF MIXED GENITAL CHICA. NO POTENTIAL PATHOGENS SEEN. Normal [facility] Comment on above: Performed By: #### B ORTHODONTIC LABORATORY TECHNICIAN, TSH, LIPID, CMP #### [facility] [address] [place] [address] Dr. Lilli Soriano GLYCOHEMOGLOBIN A1Con 2021 ADA RECOMMENDATION SEE BELOW Normal [facility] Comment on above: Result Comment: ADA RECOMMENDED LIMIT 4.0 - 6.0 ADA THERAPEUTIC TARGET < 7.0 ACTION SUGGESTED > 7.0 Performed By: #### B ORTHODONTIC LABORATORY TECHNICIAN, TSH, LIPID, CMP #### [facility] [address] [place] [address] Dr. Lilli Soriano Glucose [Mass/Vol] 108 mg/dL Normal [facility] Comment on above: Performed By: #### B ORTHODONTIC LABORATORY TECHNICIAN, TSH, LIPID, CMP #### [facility] [address] [place] [address] Dr. Lilli Soriano HbA1c (Bld) [Mass fraction] 5.4 % Normal 4.5-6.2 [facility] Comment on above: Performed By: #### B ORTHODONTIC LABORATORY TECHNICIAN, TSH, LIPID, CMP #### [facility] [address] [place] [address] Dr. Lilli Soriano IRONon 11-25-2021 Iron [Mass/Vol] 47.0 ug/dL Critically low 50.0-170.0 [facility] Comment on above: Performed By: #### B ORTHODONTIC LABORATORY TECHNICIAN, TSH, LIPID, CMP #### [facility] [address] [address] [address] Lilli Soriano LIPID PROFILEon 11-25-2021 CHOL-HDL RATIO NORM SEE BELOW Normal [facility] Comment on above: Result Comment: 3.3 - 4.4 LOW RISK 4.4 - 7.1 AVERAGE RISK 7.1 - 11.0 MODERATE RISK >11.0 HIGH RISK Performed By: #### B ORTHODONTIC LABORATORY TECHNICIAN, TSH, LIPID, CMP #### [facility] [address] [place] [address] Dr. Lilli Soriano Cholesterol [Mass/Vol] 153 mg/dL Normal <=200 [facility] Comment on above: Performed By: #### B ORTHODONTIC LABORATORY TECHNICIAN, TSH, LIPID, CMP #### [facility] [address] [place] [address] Dr. Lilli Soriano Cholesterol in HDL [Mass/Vol] 56 mg/dL Normal 40-60 [facility] Comment on above: Performed By: #### B ORTHODONTIC LABORATORY TECHNICIAN, TSH, LIPID, CMP #### [facility] [address] [place] [address] Dr. Lilli Soriano Cholesterol in LDL [Mass/Vol] 88.4 mg/dL Normal [facility] Comment on above: Performed By: #### B ORTHODONTIC LABORATORY TECHNICIAN, TSH, LIPID, CMP #### [facility] [address] [place] [address] Dr. Lilli Soriano Cholesterol.total/Cho lesterol in HDL [Mass ratio] 2.7 {ratio} Normal [facility] Comment on above: Performed By: #### B ORTHODONTIC LABORATORY TECHNICIAN, TSH, LIPID, CMP #### [facility] [address] [place] [address] Dr. Lilli Soriano HDL NORMAL > or = 60 mg/dl - LO W CARDIOVASCULAR RISK <40 mg/dl - HIGH CARDIOVASCULAR RISK Normal [facility] Comment on above: Performed By: #### B ORTHODONTIC LABORATORY TECHNICIAN, TSH, LIPID, CMP #### [facility] [address] [place] [address] Dr. Lilli Soriano LDL CALC NORMAL SEE BELOW Normal [facility] Comment on above: Result Comment: <100 mg/dl OPTIMAL 100 - 129 mg/dl NEAR OR ABOVE OPTIMAL 130 - 159 mg/dl BORDERLINE HIGH 160 - 189 mg/dl HIGH >190 mg/dl VERY HIGH Performed By: #### B ORTHODONTIC LABORATORY TECHNICIAN, TSH, LIPID, CMP #### [facility] [address] [address] [address] Lilli Soriano Triglyceride [Mass/Vol] 43 mg/dL Normal <=150 [facility] Comment on above: Performed By: #### B ORTHODONTIC LABORATORY TECHNICIAN, TSH, LIPID, CMP #### [facility] [address] [address] [address] Lilli Soriano VLDL CALC 8.6 mg/dL Normal [facility] Comment on above: Performed By: #### B ORTHODONTIC LABORATORY TECHNICIAN, TSH, LIPID, CMP #### [facility] [address] [address] [address] Lilli Soriano PROF 14(COMP METB)on 022 Albumin [Mass/Vol] 3.7 g/dL Normal 3.4-5.0 [facility] Comment on above: Performed By: #### B ORTHODONTIC LABORATORY TECHNICIAN, TSH, LIPID, CMP #### [facility] [address] [place] [address] Dr. Lilli Soriano Albumin/Globulin [Mass ratio] 1.0 {ratio} Normal [facility] Comment on above: Performed By: #### B ORTHODONTIC LABORATORY TECHNICIAN, TSH, LIPID, CMP #### [facility] [address] [place] [address] Dr. Lilli Soriano ALP [Catalytic activity/Vol] 58 U/L Normal 46-116 [facility] Comment on above: Performed By: #### B ORTHODONTIC LABORATORY TECHNICIAN, TSH, LIPID, CMP #### [facility] [address] [place] [address] Dr. Lilli Soriano ALT [Catalytic activity/Vol] 30 U/L Normal 14-59 [facility] Comment on above: Performed By: #### B ORTHODONTIC LABORATORY TECHNICIAN, TSH, LIPID, CMP #### [facility] [address] [place] [address] Dr. Lilli Soriano Anion gap [Moles/Vol] 9.9 mmol/L Normal [facility] Comment on above: Performed By: #### B ORTHODONTIC LABORATORY TECHNICIAN, TSH, LIPID, CMP #### [facility] [address] [place] [address] Dr. Lilli Soriano AST [Catalytic activity/Vol] 10 U/L Critically low 15-37 [facility] Comment on above: Performed By: #### B ORTHODONTIC LABORATORY TECHNICIAN, TSH, LIPID, CMP #### [facility] [address] [place] [address] Dr. Lilli Soriano Bilirubin [Mass/Vol] 0.4 mg/dL Normal 0.2-1.0 [facility] Comment on above: Performed By: #### B ORTHODONTIC LABORATORY TECHNICIAN, TSH, LIPID, CMP #### [facility] [address] [place] [address] Dr. Lilli Soriano Calcium [Mass/Vol] 8.8 mg/dL Normal 8.5-10.1 [facility] Comment on above: Performed By: #### B ORTHODONTIC LABORATORY TECHNICIAN, TSH, LIPID, CMP #### [facility] [address] [place] [address] Dr. Lilli Soriano Chloride [Moles/Vol] 102 mmol/L Normal 98-107 [facility] Comment on above: Performed By: #### B ORTHODONTIC LABORATORY TECHNICIAN, TSH, LIPID, CMP #### [facility] [address] [place] [address] Dr. Lilli Soriano CO2 [Moles/Vol] 30.1 mmol/L Normal 21.0-32.0 [facility] Comment on above: Performed By: #### B ORTHODONTIC LABORATORY TECHNICIAN, TSH, LIPID, CMP #### [facility] [address] [place] [address] Dr. Lilli Soriano Creatinine [Mass/Vol] 0.90 mg/dL Normal 0.55-1.02 [facility] Comment on above: Performed By: #### B ORTHODONTIC LABORATORY TECHNICIAN, TSH, LIPID, CMP #### [facility] [address] [place] [address] Dr. Lilli Soriano EGFR-AF POLISH >60 Normal >=60 [facility] Comment on above: Performed By: #### B ORTHODONTIC LABORATORY TECHNICIAN, TSH, LIPID, CMP #### [facility] [address] [place] [address] Dr. Lilli Soriano EGFR-NON AF POLISH >60 Normal >=60 [facility] Comment on above: Performed By: #### B ORTHODONTIC LABORATORY TECHNICIAN, TSH, LIPID, CMP #### [facility] [address] [place] [address] Dr. Lilli Soriano Globulin (S) [Mass/Vol] 3.7 g/dL Normal [facility] Comment on above: Performed By: #### B ORTHODONTIC LABORATORY TECHNICIAN, TSH, LIPID, CMP #### [facility] [address] [place] [address] Dr. Lilli Soriano Glucose [Mass/Vol] 96 mg/dL Normal 74-106 [facility] Comment on above: Performed By: #### B ORTHODONTIC LABORATORY TECHNICIAN, TSH, LIPID, CMP #### [facility] [address] [place] [address] Dr. Lilli Soriano Potassium [Moles/Vol] 4.0 mmol/L Normal 3.5-5.1 [facility] Comment on above: Performed By: #### B ORTHODONTIC LABORATORY TECHNICIAN, TSH, LIPID, CMP #### [facility] [address] [place] [address] Dr. Lilli Soriano Protein [Mass/Vol] 7.4 g/dL Normal 6.4-8.2 [facility] Comment on above: Performed By: #### B ORTHODONTIC LABORATORY TECHNICIAN, TSH, LIPID, CMP #### [facility] [address] [place] [address] Dr. Lilli Soriano Sodium [Moles/Vol] 138 mmol/L Normal 136-145 [facility] Comment on above: Performed By: #### B ORTHODONTIC LABORATORY TECHNICIAN, TSH, LIPID, CMP #### [facility] [address] [place] [address] Dr. Lilli Soriano Urea nitrogen [Mass/Vol] 12.0 mg/dL Normal 7.0-18.0 [facility] Comment on above: Performed By: #### B ORTHODONTIC LABORATORY TECHNICIAN, TSH, LIPID, CMP #### [facility] [address] [place] [address] Dr. Lilli Soriano Urea nitrogen/Creatinine [Mass ratio] 13.3 mg/mg Normal [facility] Comment on above: Performed By: #### B ORTHODONTIC LABORATORY TECHNICIAN, TSH, LIPID, CMP #### [facility] [address] [place] [address] Dr. Lilli Soriano TSHon 11-25-2021 TSH 1.196 uIU/mL Normal 0.358-3.740 [facility] Comment on above: Performed By: #### B ORTHODONTIC LABORATORY TECHNICIAN, TSH, LIPID, CMP #### [facility] [address] [place] [address] Dr. Lilli Soriano UA RANDOM W/MICROSCOPICon BACTERIA TRACE Abnormal NONE SEEN [facility] Comment on above: Performed By: #### B ORTHODONTIC LABORATORY TECHNICIAN, TSH, LIPID, CMP #### [facility] [address] [place] [address] Dr. Lilli Soriano Bilirubin Ql (U) Negative Normal NEGATIVE [facility] Comment on above: Performed By: #### B ORTHODONTIC LABORATORY TECHNICIAN, TSH, LIPID, CMP #### [facility] [address] [place] [address] Dr. Lilli Soriano CAST NONE SEEN Normal NONE SEEN [facility] Comment on above: Performed By: #### B ORTHODONTIC LABORATORY TECHNICIAN, TSH, LIPID, CMP #### [facility] [address] [place] [address] Dr. Lilli Soriano Clarity (U) CLEAR Normal CLEAR [facility] Comment on above: Performed By: #### B ORTHODONTIC LABORATORY TECHNICIAN, TSH, LIPID, CMP #### [facility] [address] [place] [address] Dr. Lilli Soriano Color (U) LT. YELLOW Normal YELLOW [facility] Comment on above: Performed By: #### B ORTHODONTIC LABORATORY TECHNICIAN, TSH, LIPID, CMP #### [facility] [address] [place] [address] Dr. Lilli Soriano Crystals LM Nom (Urine sed) NONE SEEN Normal NONE SEEN [facility] Comment on above: Performed By: #### B ORTHODONTIC LABORATORY TECHNICIAN, TSH, LIPID, CMP #### [facility] [address] [place] [address] Dr. Lilli Soriano Epithelial cells LM Ql (Urine sed) MODERATE Abnormal NONE SEEN /RARE [facility] Comment on above: Performed By: #### B ORTHODONTIC LABORATORY TECHNICIAN, TSH, LIPID, CMP #### [facility] [address] [place] [address] Dr. Lilli Soriano Glucose Ql (U) Negative Normal NEGATIVE [facility] Comment on above: Performed By: #### B ORTHODONTIC LABORATORY TECHNICIAN, TSH, LIPID, CMP #### [facility] [address] [address] [address] Lilli Soriano Hemoglobin Ql (U) Negative Normal NEGATIVE [facility] Comment on above: Performed By: #### B ORTHODONTIC LABORATORY TECHNICIAN, TSH, LIPID, CMP #### [facility] [address] [address] [address] Lilli Soriano Ketones Ql (U) Negative Normal NEGATIVE [facility] Comment on above: Performed By: #### B ORTHODONTIC LABORATORY TECHNICIAN, TSH, LIPID, CMP #### [facility] [address] [address] [address] Lilli Soriano LEUKOCYTES Negative Normal NEGATIVE [facility] Comment on above: Performed By: #### B ORTHODONTIC LABORATORY TECHNICIAN, TSH, LIPID, CMP #### [facility] [address] [place] [address] Dr. Lilli Soriano MUCOUS NONE SEEN Normal NONE SEEN [facility] Comment on above: Performed By: #### B ORTHODONTIC LABORATORY TECHNICIAN, TSH, LIPID, CMP #### [facility] [address] [place] [address] Dr. Lilli Soriano Nitrite Ql (U) Negative Normal NEGATIVE [facility] Comment on above: Performed By: #### B ORTHODONTIC LABORATORY TECHNICIAN, TSH, LIPID, CMP #### [facility] [address] [place] [address] Dr. Lilli Soriano pH (U) 7.0 [pH] Normal 5-9 [facility] Comment on above: Performed By: #### B ORTHODONTIC LABORATORY TECHNICIAN, TSH, LIPID, CMP #### [facility] [address] [place] [address] Dr. Lilli Soriano RBC 0-2 Normal 0-2 [facility] Comment on above: Performed By: #### B ORTHODONTIC LABORATORY TECHNICIAN, TSH, LIPID, CMP #### [facility] [address] [place] [address] Dr. Lilli Soriano SPEC GRAVITY 1.010 Normal 1.005-<=1.02 5 [facility] Comment on above: Performed By: #### B ORTHODONTIC LABORATORY TECHNICIAN, TSH, LIPID, CMP #### [facility] [address] [address] [address] Lilli Soriano UA PROTEIN Negative Normal NEGATIVE/ TRACE [facility] Comment on above: Performed By: #### B ORTHODONTIC LABORATORY TECHNICIAN, TSH, LIPID, CMP #### [facility] [address] [address] [address] Lilli Soriano Urobilinogen Qn (U) 0.2 {Macho'U}/dL Normal 0.2 - 1. 0 [facility] Comment on above: Performed By: #### B ORTHODONTIC LABORATORY TECHNICIAN, TSH, LIPID, CMP #### [facility] [address] [address] [address] Lilli Soriano WBC NONE SEEN Normal NONE SEEN [facility] Comment on above: Performed By: #### B ORTHODONTIC LABORATORY TECHNICIAN, TSH, LIPID, CMP #### [facility] [address] [address] [address] Lilli Soriano URon 09-19-2021 , QUAL Negative Normal NEGATIVE [facility] Comment on above: Performed By: #### B ORTHODONTIC LABORATORY TECHNICIAN, TSH, LIPID, CMP #### [facility] [address] [address] [address] Lilli Soriano XR LSPINE 2_3 VIEWSon 2021 XR LSPINE 2_3 VIEWS EXAM: XR L-SPINE 2_3 VIEWS 09/19/2021. FINDINGS: AP and lateral views for two views of the lumbar spine were obtained of this morbidly obese patient. HISTORY: Low back pain. COMPARISON: None. IMPRESSION: 1. Five nonrib-bearing lumbar vertebral segments with satisfactory alignment and curvature. The lower ribs, pedicles, and upper pelvis are intact. 2. Negative for lumbar spinal fracture or subluxation. 3. Vertebral body heights and disc spaces are preserved aside from mild narrowing of the disc space at L5-S1. Electronically authenticated by: ADALID ANA Date: 2021-09-19 12:59 Normal [facility] Covid-19 PCR (CVDTB)on 07-19 SARS-CoV-2 (COVID-19) RNA CLIFF+probe Ql (Unsp spec) Not detected Normal NOT DETECTED [facility] Comment on above: Result Comment: This test is not yet approved or cleared by the [place] FDA. When there are no FDA-approved or cleared tests available, and other criteria are met, FDA can make tests available under an emergency access mechanism called an Emergency Use Authorization (EUA). The EUA for this test is supported by the [place] of Health and Human Service's (HHS's) declaration that circumstances exist to justify the emergency use of in vitro diagnostics for the detection and/or diagnosis of the virus that causes COVID-19. This EUA will remain in effect (meaning this test can be used) for the duration of the COVID-19 declaration justifying emergency of IVDs, unless it is terminated or revoked by FDA (after which the test may no longer be used). When diagnostic testing is negative, the possibility of a false negative should be considered in the context of a patient's recent exposures and the presence of clinical signs and symptoms consistent with SARS-CoV-2. Performed By: #### C VDTB #### [facility] [address] [place] [address] Dr. Lilli Soriano INFLUENZA A AND B [facility] 07-30 [facility] SEE BELOW Normal [facility] Comment on above: Result Comment: Nega tive for Flu A protein angiten. Infection due to Flu A cannot be ruled out. Flu A angiten in the sample may be below the detection limit of the test. Performed By: #### I NFLUAB #### [facility] [address] [place] [address] Dr. Lilli Soriano [facility] SEE BELOW Normal [facility] Comment on above: Result Comment: Nega tive for Flu B protein antigen. Infection due to Flu B cannot be ruled out. Flu B antigen in the sample may be below the detection limit of the test. Performed By: #### I NFLUAB #### [facility] [address] [place] [address] Dr. Lilli Soriano INFLUENZA A AG Negative Normal NEGATIVE SEE COMMENT [facility] Comment on above: Performed By: #### I NFLUAB #### [facility] [address] [place] [address] Dr. Lilli Soriano INFLUENZA B AG Negative Normal NEGATIVE SEE COMMENT [facility] Comment on above: Performed By: #### I NFLUAB #### [facility] [address] [place], [place] [address] Dr. Lilli Soriano INTERNAL CONTROLS Within Normal Limits Normal Wi thin Normal Limits [facility] Comment on above: Performed By: #### I NFLUAB #### [facility] [address] [place], [place] [address] Dr. Lilli Soriano HCG, Quanton 04-29-2021 HCG, Quant <1 Normal <5 [facility] Comment on above: Result Comment: Non-preg premeno <=5 Postmeno <=8 Male <=3 If HCG results do not concur with clinical observations, additional testing to confirm results is recommended. Elevated results not associated with may be found in patients with other diseases such as tumors of the germ cells (testis, ovaries, etc.), bladder, pancreas, stomach, lungs, and liver. Performed By: #### B HCG #### [facility] [employer] [address], [place] [id number] [employer]: Geo Mar MD hCG, Quantitative, on 04-29-2021 hCG Quant <1 <5 IU/L [facility] Comment on above: Non-preg premeno <=5 Postmeno <=8 Male <=3 If HCG results do not concur with clinical observations, additional testing to confirm results is recommended. Elevated results not associated with may be found in patients with other diseases such as tumors of the germ cells (testis, ovaries, etc.), bladder, pancreas, stomach, lungs, and liver. [facility] CBC Auto Differentialon 03-21 Basophils (Bld) [#/Vol] 0.04 10*3/uL [place] Basophils/100 WBC (Bld) 1 % 0 - 2 % [place] Differential Type NOT REPORTED [place] Eosinophils (Bld) [#/Vol] 0.15 10*3/uL [place] Eosinophils/100 WBC (Bld) 2 % 1 - 4 % [place] Erythrocyte distribution width (RBC) [Ratio] 12.9 % 11.8 - 14.4 % [place] Hematocrit (Bld) [Volume fraction] 44.6 % 36.3 - 47.1 % [place] Hemoglobin (Bld) [Mass/Vol] 14.6 g/dL 11.9 - 15.1 g/dL [place] Immature granulocytes (Bld) [#/Vol] 0.05 10*3/uL [place] Immature granulocytes (Bld) [#/Vol] 1 % High 0 [place] Interpretation and review of laboratory results Abnormal [place] Lymphocytes (Bld) [#/Vol] 1.70 10*3/uL [place] Lymphocytes/100 WBC (Bld) 21 % Low 24 - 43 % [place] MCH (RBC) [Entitic mass] 28.1 pg 25.2 - 33.5 pg [place] MCHC (RBC) [Mass/Vol] 32.7 g/dL 28.4 - 34.8 g/dL [place] MCV (RBC) [Entitic vol] 85.8 fL 82.6 - 102.9 fL [place] Monocytes (Bld) [#/Vol] 0.54 10*3/uL [place] Monocytes/100 WBC (Bld) 7 % 3 - 12 % [place] Platelet mean volume (Bld) [Entitic vol] 10.7 fL 8.1 - 13.5 fL [place] Platelets (Bld) [#/Vol] NOT REPORTED [place] Platelets (Bld) [#/Vol] 337 10*3/uL [place] RBC (Bld) [#/Vol] 5.20 10*6/uL High 3.95 - 5.1 1 m/uL [place] RBC morphology finding Nom (Bld) NOT REPORTED [place] Segmented neutrophils/100 WBC (Bld) 68 % High 36 - 65 % [place] Segs Absolute 5.83 [place] WBC (Bld) [#/Vol] 8.3 10*3/uL [place] WBC (Bld) [#/Vol] 0.0 10*3/uL 0.0 per 10 0 WBC [place] WBC Morphology NOT REPORTED [place] Comprehensive Metabolic Pane jani 04-08-2020 Albumin [Mass/Vol] 4 g/dL 3.5 - 5.2 g/dL [place] Albumin/Globulin [Mass ratio] 1.7 {ratio} [place] ALP [Catalytic activity/Vol] 66 U/L 35 - 104 U/L [place] ALT [Catalytic activity/Vol] 16 U/L 5 - 33 U/L [place] Anion gap [Moles/Vol] 11 mmol/L 9 - 17 mmol/L [place] AST [Catalytic activity/Vol] 13 U/L <32 [place] Bilirubin Ql (U) 0.28 mg/dL Low 0.3 - 1.2 mg/dL [place] Bun/Cre Ratio NOT REPORTED [place] Calcium [Mass/Vol] 9.1 mg/dL 8.6 - 10. 4 mg/dL [place] Chloride [Moles/Vol] 103 mmol/L 98 - 10 7 mmol/L [place] CO2 [Moles/Vol] 21 mmol/L 20 - 31 mmol/L [place] Creatinine [Mass/Vol] 0.78 mg/dL 0.5 - 0.9 mg/dL [place] GFR >60 >60 mL/min [place] GFR Non- >60 >60 mL/min [place] GFR/1.73 sq M predicted among non-blacks MDRD (S/P/Bld) [Vol rate/Area] [place] Comment on above: Average GFR for 20-2 9 years old: 116 mL/min/1.73sq m Chronic Kidney Disease: <60 mL/min/1.73sq m Kidney failure: <15 mL/min/1.73sq m eGFR calculated using average adult body mass. Additional eGFR calculator available at: http://www.Capptain.Attender/multiple_crcl_2011.htm GFR/1.73 sq M predicted among non-blacks MDRD (S/P/Bld) [Vol rate/Area] NOT REPORTED [place] Glucose [Mass/Vol] 97 mg/dL 70 - 99 mg/dL [place] Interpretation and review of laboratory results Abnormal [place] Potassium [Moles/Vol] 4.4 mmol/L 3.7 - 5.3 mmol/L [place] Protein [Mass/Vol] 6.4 g/dL 6.4 - 8.3 g/dL [place] Sodium [Moles/Vol] 135 mmol/L 135 - 144 mmol/L [place] Urea nitrogen [Mass/Vol] 12 mg/dL 6 - 20 mg/dL [place] Hemoglobin A1Con 04-08-2020 Glucose [Mass/Vol] 111 mg/dL [place] Comment on above: The ADA and AACC rec ommend providing the estimated average glucose result to permit better patient understanding of their HBA1c result. HbA1c (Bld) [Mass fraction] 5.5 % 4 - 6 % [place] Insulin, totalon 04-08-2020 INR Coag (Bld) [Relative time] [place] Comment on above: Fastin.6-24.9 30 min: 20-112 60 min: 29-88 90 min: 26-84 120 min: 22-79 Insulin 27.4 mU/L [place] Insulin Comment NOT REPORTED [place] T3on 04-08-2020 T3, Total 97 ng/dL 60 - 181 ng/dL [place] T3, Uptakeon 04-08-2020 Interpretation and review of laboratory results Abnormal [place] T4 [Mass/Vol] 37.23 % High 22.5 - 37 % [place] T4on 04-08-2020 T4, Total 6.4 ug/dL 4.5 - 10.9 ug/dL [place] TSH without Reflexon 021 TSH Qn 1.39 m[IU]/L [place] Cult, Bloodon 12-04-2018 Cult, Blood Specimen Description .BLOOD Special Requests RAC 10ML Culture NO GROWTH 5 DAYS Report Status FINAL 12/04/2018 [facility] Comment on above: Performed By: #### T OXOM, HSVG12, CMVM, FA2, MATIAS, TOXOG, HSVM12, CMVG, FA5 #### [address] [address] [employer]ning Maker And Installer: Geo Mar MD #### CBC, FIB #### [address] [place], [place] [id number] Awning Maker And Installer: Mario Anne MD #### APROTS, APARVP, APROTC, ARUBGM #### [facility] [address] [place] [address] Awning Maker And Installer: Fernando Valencia MD #### LUPPRO #### [address] [address] Awning Maker And Installer: Geo Mar MD [address] [place] [address] Awning Maker And Installer: Mario Anne MD Cult,Bloodon 12-03-2018 Cult,Blood Specimen Description .BLOOD Special Requests LAC 20 ML Culture NO GROWTH 5 DAYS Report Status FINAL 12/03/2018 [facility] Comment on above: Performed By: #### T OXOM, HSVG12, CMVM, FA2, MATIAS, TOXOG, HSVM12, CMVG, FA5 #### [address] [address] Awning Maker And Installer: Geo Mar MD #### CBC, FIB #### [address] [place] [address] Awning Maker And Installer: Mario Anne MD #### APROTS, APARVP, APROTC, ARUBGM #### [facility] [address] [place] [address] Awning Maker And Installer: Fernando Valencia MD #### LUPPRO #### [address] [address] Awning Maker And Installer: Geo Mar MD [address] [place] [phone] Awning Maker And Installer: Mario Anne MD CBCon 11-30-2018 Erythrocyte distribution width (RBC) [Ratio] 13.4 % Normal 11.8-14.4 [facility] Comment on above: Performed By: #### T OXOM, HSVG12, CMVM, FA2, MATIAS, TOXOG, HSVM12, CMVG, FA5 #### [address] [address] Awning Maker And Installer: Geo Mar MD #### CBC, FIB #### [address] [place] [phone] Awning Maker And Installer: Mario Anne MD #### APROTS, APARVP, APROTC, ARUBGM #### [facility] [address] [place] [address] Awning Maker And Installer: Fernando Valencia MD #### LUPPRO #### [address] [address] Awning Maker And Installer: Geo Mar MD [address] [place] [phone] Awning Maker And Installer: Mario Anne MD Hematocrit (Bld) [Volume fraction] 26.6 % Low 36.3-47.1 [facility] Comment on above: Performed By: #### T OXOM, HSVG12, CMVM, FA2, MATIAS, TOXOG, HSVM12, CMVG, FA5 #### [address] [address] Awning Maker And Installer: Geo Mar MD #### CBC, FIB #### [address] [place] [address] Awning Maker And Installer: Mario Anne MD #### APROTS, APARVP, APROTC, ARUBGM #### [facility] [address] [place] [address] Awning Maker And Installer: Fernando Valencia MD #### LUPPRO #### [address] [address] Awning Maker And Installer: Geo Mar MD [address] [place] [phone] Awning Maker And Installer: Mario Anne MD Hemoglobin (Bld) [Mass/Vol] 8.1 g/dL Low 11.9-15.1 [facility] Comment on above: Performed By: #### T OXOM, HSVG12, CMVM, FA2, MATIAS, TOXOG, HSVM12, CMVG, FA5 #### [address] [address] Awning Maker And Installer: Geo Mar MD #### CBC, FIB #### [address] [place] [address] Awning Maker And Installer: Mario Anne MD #### APROTS, APARVP, APROTC, ARUBGM #### [facility] [address] [place], [place] [id number] Awning Maker And Installer: Fernando Valencia MD #### LUPPRO #### [address] [address] Awning Maker And Installer: Geo Mar MD [address] [place] [phone] Awning Maker And Installer: Mario Anne MD MCH (RBC) [Entitic mass] 27.2 pg Normal 25.2-33.5 [facility] Comment on above: Performed By: #### T OXOM, HSVG12, CMVM, FA2, MATIAS, TOXOG, HSVM12, CMVG, FA5 #### [address] [address] Awning Maker And Installer: Geo Mar MD #### CBC, FIB #### [address] [place], [place] [phone] Awning Maker And Installer: Mario Anne MD #### APROTS, APARVP, APROTC, ARUBGM #### [facility] [address] [place] [address] Awning Maker And Installer: Fernando Valencia MD #### LUPPRO #### [address] [address] Awning Maker And Installer: Geo Mar MD [address] [place] [address] Awning Maker And Installer: Mario Anne MD MCHC (RBC) [Mass/Vol] 30.5 g/dL Normal 28.4-34.8 [facility] Comment on above: Performed By: #### T OXOM, HSVG12, CMVM, FA2, MATIAS, TOXOG, HSVM12, CMVG, FA5 #### [address] [address] Awning Maker And Installer: Geo Mar MD #### CBC, FIB #### [address] [place], [place] [phone] Awning Maker And Installer: Mario Anne MD #### APROTS, APARVP, APROTC, ARUBGM #### [facility] [address] [place], [place] [id number] Awning Maker And Installer: Fernando Valencia MD #### LUPPRO #### [address] [address] Awning Maker And Installer: Geo Mar MD [address] [place], [place] [phone] Awning Maker And Installer: Mario Anne MD MCV (RBC) [Entitic vol] 89.3 fL Normal 82.6-102.9 [facility] Comment on above: Performed By: #### T OXOM, HSVG12, CMVM, FA2, MATIAS, TOXOG, HSVM12, CMVG, FA5 #### [address] [address] Awning Maker And Installer: Geo Mar MD #### CBC, FIB #### [address] [place] [address] Awning Maker And Installer: Mario Anne MD #### APROTS, APARVP, APROTC, ARUBGM #### [facility] [address] [place] [address] Awning Maker And Installer: Fernando Valencia MD #### LUPPRO #### [address] [address] Awning Maker And Installer: Geo Mar MD [address] [place] [phone] Awning Maker And Installer: Mario Anne MD NRBC Automated 0.0 per 100 WBC Normal 0.0 [facility] Comment on above: Performed By: #### T OXOM, HSVG12, CMVM, FA2, MATIAS, TOXOG, HSVM12, CMVG, FA5 #### [address] [address] Awning Maker And Installer: Geo Mar MD #### CBC, FIB #### [address] [place] [phone] Awning Maker And Installer: Mario Anne MD #### APROTS, APARVP, APROTC, ARUBGM #### [facility] [address] [place] [address] Awning Maker And Installer: Fernando Valencia MD #### LUPPRO #### [address] [address] Awning Maker And Installer: Geo Mar MD [address] [place] [phone] Awning Maker And Installer: Mario Anne MD Platelet mean volume (Bld) [Entitic vol] 10.0 fL Normal 8.1-13.5 [facility] Comment on above: Performed By: #### T OXOM, HSVG12, CMVM, FA2, MATIAS, TOXOG, HSVM12, CMVG, FA5 #### [address] [address] Awning Maker And Installer: Geo Mar MD #### CBC, FIB #### [address] [place], [place] [phone] Awning Maker And Installer: Mario Anne MD #### APROTS, APARVP, APROTC, ARUBGM #### [facility] [address] [place], [place] [id number] Awning Maker And Installer: Fernando Valencia MD #### LUPPRO #### [address] [address] Awning Maker And Installer: Geo Mar MD [address] [place] [phone] Awning Maker And Installer: Mario Anne MD Platelets (Bld) [#/Vol] 255 10*3/uL Normal 138-453 [facility] Comment on above: Performed By: #### T OXOM, HSVG12, CMVM, FA2, MATIAS, TOXOG, HSVM12, CMVG, FA5 #### [address] [address] Awning Maker And Installer: Geo Mar MD #### CBC, FIB #### [address] [place] [phone] Awning Maker And Installer: Mario Anne MD #### APROTS, APARVP, APROTC, ARUBGM #### [facility] [address] [place], [place] [id number] Awning Maker And Installer: Fernando Valencia MD #### LUPPRO #### [address] [address] Awning Maker And Installer: Geo Mar MD [address] [place] [phone] Awning Maker And Installer: Mario Anne MD RBC (Bld) [#/Vol] 2.98 10*6/uL Low 3.95-5.11 [facility] Comment on above: Performed By: #### T OXOM, HSVG12, CMVM, FA2, MATIAS, TOXOG, HSVM12, CMVG, FA5 #### [facility] [address] [place] [address] Awning Maker And Installer: Geo Mar MD #### CBC, FIB #### [address] [place] [phone] Awning Maker And Installer: Mario Anne MD #### APROTS, APARVP, APROTC, ARUBGM #### [facility] [address] [place] [address] Awning Maker And Installer: Fernando Valencia MD #### LUPPRO #### [address] [address] Awning Maker And Installer: Geo Mar MD [address] [place] [phone] Awning Maker And Installer: Mario Anne MD WBC (Bld) [#/Vol] 6.3 10*3/uL Normal 3.5-11.3 [facility] Comment on above: Performed By: #### T OXOM, HSVG12, CMVM, FA2, MATIAS, TOXOG, HSVM12, CMVG, FA5 #### [address] [address] Awning Maker And Installer: Geo Mar MD #### CBC, FIB #### [address] [place], [place] [phone] Awning Maker And Installer: Mario Anne MD #### APROTS, APARVP, APROTC, ARUBGM #### [facility] [address] [place] [address] Awning Maker And Installer: Fernando Valencia MD #### LUPPRO #### [facility] [address] [place], [place] [phone] Awning Maker And Installer: Geo Mar MD [facility] [address] [place] [address] Awning Maker And Installer: Mario Anne MD Erythrocyte distribution width (RBC) [Ratio] 13.4 % 11.8 - 14.4 % [place] Hematocrit (Bld) [Volume fraction] 26.6 % Low 36.3 - 47.1 % [place] Hemoglobin (Bld) [Mass/Vol] 8.1 g/dL Low 11.9 - 15.1 g/dL [place] Interpretation and review of laboratory results Abnormal [place] MCH (RBC) [Entitic mass] 27.2 pg 25.2 - 33.5 pg [place] MCHC (RBC) [Mass/Vol] 30.5 g/dL 28.4 - 34.8 g/dL [place] MCV (RBC) [Entitic vol] 89.3 fL 82.6 - 102.9 fL [place] Platelet mean volume (Bld) [Entitic vol] 10.0 fL 8.1 - 13.5 fL [place] Platelets (Bld) [#/Vol] 255 10*3/uL [place] RBC (Bld) [#/Vol] 2.98 10*6/uL Low 3.95 - 5.1 1 m/uL [place] WBC (Bld) [#/Vol] 6.3 10*3/uL [place] WBC (Bld) [#/Vol] 0.0 10*3/uL 0.0 per 10 0 WBC [place] Comp Metabolic Pr/rfx MGon 0 11-30-2018 (cont.) Normal [facility] Comment on above: Result Comment: Aver age GFR for 20-29 years old: 116 mL/min/1.73sq m Chronic Kidney Disease: <60 mL/min/1.73sq m Kidney failure: <15 mL/min/1.73sq m eGFR calculated using average adult body mass. Additional eGFR calculator available at: http://www.Duriana/multiple_crcl_2012.htm Performed By: #### T OXOM, HSVG12, CMVM, FA2, MATIAS, TOXOG, HSVM12, CMVG, FA5 #### [facility] [address] [place] [address] Awning Maker And Installer: Geo Mar MD #### CBC, FIB #### [address] [place] [address] Awning Maker And Installer: Mario Anne MD #### APROTS, APARVP, APROTC, ARUBGM #### [facility] [address] [place], [place] [id number] Awning Maker And Installer: Fernando Valencia MD #### LUPPRO #### [address] [address] Awning Maker And Installer: Geo Mar MD [address] [place] [address] Awning Maker And Installer: Mario Anne MD Albumin [Mass/Vol] 2.9 g/dL Low 3.5-5.2 [facility] Comment on above: Performed By: #### T OXOM, HSVG12, CMVM, FA2, MATIAS, TOXOG, HSVM12, CMVG, FA5 #### [address] [address] Awning Maker And Installer: Geo Mar MD #### CBC, FIB #### [address] [place] [address] Awning Maker And Installer: Mario Anne MD #### APROTS, APARVP, APROTC, ARUBGM #### [facility] [address] [place], [place] [id number] Awning Maker And Installer: Fernando Valencia MD #### LUPPRO #### [address] [address] Awning Maker And Installer: Geo Mar MD [address] [place], [place] [phone] Awning Maker And Installer: Mario Anne MD Albumin/Globulin [Mass ratio] 1.1 {ratio} Normal 1.0-2.5 [facility] Comment on above: Performed By: #### T OXOM, HSVG12, CMVM, FA2, MATIAS, TOXOG, HSVM12, CMVG, FA5 #### [address] [address] Awning Maker And Installer: Geo Mar MD #### CBC, FIB #### [address] [place] [phone] Awning Maker And Installer: Mario Anne MD #### APROTS, APARVP, APROTC, ARUBGM #### [facility] [address] [place], [place] [id number] Awning Maker And Installer: Fernando Valencia MD #### LUPPRO #### [address] [address] Awning Maker And Installer: Geo Mar MD [address] [place] [phone] Awning Maker And Installer: Mario Anne MD Alkaline Phos 41 U/L Normal 35-104 [facility] Comment on above: Performed By: #### T OXOM, HSVG12, CMVM, FA2, MATIAS, TOXOG, HSVM12, CMVG, FA5 #### [address] [address] Awning Maker And Installer: Geo Mar MD #### CBC, FIB #### [address] [place] [address] Awning Maker And Installer: Mario Anne MD #### APROTS, APARVP, APROTC, ARUBGM #### [facility] [address] [place] [address] Awning Maker And Installer: Fernando Valencia MD #### LUPPRO #### [address] [address] Awning Maker And Installer: Geo Mar MD [address] [place], [place] [phone] Awning Maker And Installer: Mario Anne MD ALT [Catalytic activity/Vol] 17 U/L Normal 5-33 [facility] Comment on above: Performed By: #### T OXOM, HSVG12, CMVM, FA2, MATIAS, TOXOG, HSVM12, CMVG, FA5 #### [address] [address] Awning Maker And Installer: Geo Mar MD #### CBC, FIB #### [address] [place], [place] [phone] Awning Maker And Installer: Mario Anne MD #### APROTS, APARVP, APROTC, ARUBGM #### [facility] [address] [place] [address] Awning Maker And Installer: Fernando Valencia MD #### LUPPRO #### [address] [phone] Awning Maker And Installer: Geo Mar MD [address] [place], [place] [phone] Awning Maker And Installer: Mario Anne MD Anion gap [Moles/Vol] 14 mmol/L Normal 9-17 [facility] Comment on above: Performed By: #### T OXOM, HSVG12, CMVM, FA2, MATIAS, TOXOG, HSVM12, CMVG, FA5 #### [address] [address] Awning Maker And Installer: Geo Mar MD #### CBC, FIB #### [address] [place], [place] [id number] Awning Maker And Installer: Mario Anne MD #### APROTS, APARVP, APROTC, ARUBGM #### [facility] [address] [place] [address] Awning Maker And Installer: Fernando Valencia MD #### LUPPRO #### [address] [address] Awning Maker And Installer: Geo Mar MD [address] [place] [address] Awning Maker And Installer: Mario Anne MD AST [Catalytic activity/Vol] 14 U/L Normal <32 [facility] Comment on above: Performed By: #### T OXOM, HSVG12, CMVM, FA2, MATIAS, TOXOG, HSVM12, CMVG, FA5 #### [address] [address] Awning Maker And Installer: Geo Mar MD #### CBC, FIB #### [address] [place], [place] [id number] Awning Maker And Installer: Mario Anne MD #### APROTS, APARVP, APROTC, ARUBGM #### [facility] [address] [place] [address] Awning Maker And Installer: Fernando Valencia MD #### LUPPRO #### [address] [address] Awning Maker And Installer: Geo Mar MD [address] [place], [place] [phone] Awning Maker And Installer: Mario Anne MD Bilirubin Ql (U) 0.16 mg/dL Low 0.3-1.2 [facility] Comment on above: Performed By: #### T OXOM, HSVG12, CMVM, FA2, MATIAS, TOXOG, HSVM12, CMVG, FA5 #### [address] [address] Awning Maker And Installer: Geo Mar MD #### CBC, FIB #### [address] [place], [place] [id number] Awning Maker And Installer: Mario Anne MD #### APROTS, APARVP, APROTC, ARUBGM #### [facility] [address] [place] [address] Awning Maker And Installer: Fernando Valencia MD #### LUPPRO #### [address] [address] Awning Maker And Installer: Geo Mar MD [address] [place], [place] 5603783 Awning Maker And Installer: Mario Anne MD BUN/CRE Ratio 8 Low 9-20 [facility] Comment on above: Performed By: #### T OXOM, HSVG12, CMVM, FA2, MATIAS, TOXOG, HSVM12, CMVG, FA5 #### [address] [address] Awning Maker And Installer: Geo Mar MD #### CBC, FIB #### [address] [place], [place] [phone] Awning Maker And Installer: Mario Anne MD #### APROTS, APARVP, APROTC, ARUBGM #### [facility] [address] [place] [address] Awning Maker And Installer: Fernando Valencia MD #### LUPPRO #### [address] [phone] Awning Maker And Installer: Geo Mar MD [address] [place], [place] [phone] Awning Maker And Installer: Mario Anne MD Calcium [Mass/Vol] 8.4 mg/dL Low 8.6-10.4 [facility] Comment on above: Performed By: #### T OXOM, HSVG12, CMVM, FA2, MATIAS, TOXOG, HSVM12, CMVG, FA5 #### [address] [address] Awning Maker And Installer: Geo Mar MD #### CBC, FIB #### [address] [place], [place] 7733083 Awning Maker And Installer: Mario Anne MD #### APROTS, APARVP, APROTC, ARUBGM #### [facility] [address] [place] [address] Awning Maker And Installer: Fernando Valencia MD #### LUPPRO #### [address] [address] Awning Maker And Installer: Geo Mar MD [address] [place] [address] Awning Maker And Installer: Mario Anne MD Chloride [Moles/Vol] 105 mmol/L Normal 98-107 [facility] Comment on above: Performed By: #### T OXOM, HSVG12, CMVM, FA2, MATIAS, TOXOG, HSVM12, CMVG, FA5 #### [address] [address] Awning Maker And Installer: Geo Mar MD #### CBC, FIB #### [address] [place], [place] [id number] Awning Maker And Installer: Mario Anne MD #### APROTS, APARVP, APROTC, ARUBGM #### [facility] [address] [place] [address] Awning Maker And Installer: Fernando Valencia MD #### LUPPRO #### [address] [address] Awning Maker And Installer: Geo Mar MD [address] [place] [address] Awning Maker And Installer: Mario Anne MD CO2 [Moles/Vol] 20 mmol/L Normal 20-31 [facility] Comment on above: Performed By: #### T OXOM, HSVG12, CMVM, FA2, MATIAS, TOXOG, HSVM12, CMVG, FA5 #### [address] [address] Awning Maker And Installer: Geo Mar MD #### CBC, FIB #### [address] [place] [address] Awning Maker And Installer: Mario Anne MD #### APROTS, APARVP, APROTC, ARUBGM #### [facility] [address] [place], [place] [id number] Awning Maker And Installer: Fernando Valencia MD #### LUPPRO #### [address] [id number] Awning Maker And Installer: Geo Mar MD [address] [place] [address] Awning Maker And Installer: Mario Anne MD Creatinine [Mass/Vol] 0.88 mg/dL Normal 0.50-0.90 [facility] Comment on above: Performed By: #### T OXOM, HSVG12, CMVM, FA2, MATIAS, TOXOG, HSVM12, CMVG, FA5 #### [address] [address] Awning Maker And Installer: Geo Mar MD #### CBC, FIB #### [address] [place] [address] Awning Maker And Installer: Mario Anne MD #### APROTS, APARVP, APROTC, ARUBGM #### [facility] [address] [place], [place] [id number] Awning Maker And Installer: Fernando Valencia MD #### LUPPRO #### [address] [address] Awning Maker And Installer: Geo Mar MD [address] [place], [place] [phone] Awning Maker And Installer: Mario Anne MD GFR, Amer >60 Normal >60 [facility] Comment on above: Performed By: #### T OXOM, HSVG12, CMVM, FA2, MATIAS, TOXOG, HSVM12, CMVG, FA5 #### [address] [address] Awning Maker And Installer: Geo Mar MD #### CBC, FIB #### [address] [place], [place] [phone] Awning Maker And Installer: Mario Anne MD #### APROTS, APARVP, APROTC, ARUBGM #### [facility] [address] [place] [address] Awning Maker And Installer: Fernando Valencia MD #### LUPPRO #### [address] [address] Awning Maker And Installer: Geo Mar MD [address] [place], [place] [phone] Awning Maker And Installer: Mario Anne MD GFR,non Amer >60 Normal >60 [facility] Comment on above: Performed By: #### T OXOM, HSVG12, CMVM, FA2, MATIAS, TOXOG, HSVM12, CMVG, FA5 #### [address] [address] Awning Maker And Installer: Geo Mar MD #### CBC, FIB #### [facility] [address] [place] [address] [place], [place] [id number] Awning Maker And Installer: Mario Anne MD #### APROTS, APARVP, APROTC, ARUBGM #### [facility] [address] [place] [address] [employer]ning Maker And Installer: Fernando Valencia MD #### LUPPRO #### [address] [address] Awning Maker And Installer: Geo Mar MD [address] [place], [place] [id number] Awning Maker And Installer: Mario Anne MD Glucose [Mass/Vol] 123 mg/dL High 70-99 [facility] Comment on above: Performed By: #### T OXOM, HSVG12, CMVM, FA2, MATIAS, TOXOG, HSVM12, CMVG, FA5 #### [address] [address] Awning Maker And Installer: Geo Mar MD #### CBC, FIB #### [address] [place], [place] [address]78[address]83 Awning Maker And Installer: Mario Anne MD #### APROTS, APARVP, APROTC, ARUBGM #### [facility] [address] [place] [address] Awning Maker And Installer: Fernando Valencia MD #### LUPPRO #### [address] [address] Awning Maker And Installer: Geo Mar MD [address] [place], [place] [id number] Awning Maker And Installer: Mario Anne MD Potassium [Moles/Vol] 3.7 mmol/L Normal 3.7-5.3 [facility] Comment on above: Performed By: #### T OXOM, HSVG12, CMVM, FA2, MATIAS, TOXOG, HSVM12, CMVG, FA5 #### [address] [address] Awning Maker And Installer: Geo Mar MD #### CBC, FIB #### [address] [place], [place] [id number] Awning Maker And Installer: Mario Anne MD #### APROTS, APARVP, APROTC, ARUBGM #### [facility] [address], [place] [id number] Awning Maker And Installer: Fernando Valencia MD #### LUPPRO #### [address] [id number] Awning Maker And Installer: Geo Mar MD [address] [place], [place] [id number] Awning Maker And Installer: Mario Anne MD Protein [Mass/Vol] 5.6 g/dL Low 6.4-8.3 [facility] Comment on above: Performed By: #### T OXOM, HSVG12, CMVM, FA2, MATIAS, TOXOG, HSVM12, CMVG, FA5 #### [address] [address] Awning Maker And Installer: Geo Mar MD #### CBC, FIB #### [address] [place] [id number] Awning Maker And Installer: Mario Anne MD #### APROTS, APARVP, APROTC, ARUBGM #### [facility] [address], [place] [id number] Awning Maker And Installer: Fernando Valencia MD #### LUPPRO #### [address] [address] Awning Maker And Installer: Geo Mar MD [address] [place] [address] Awning Maker And Installer: Maroi Anne MD Sodium [Moles/Vol] 139 mmol/L Normal 135-144 [facility] Comment on above: Performed By: #### T OXOM, HSVG12, CMVM, FA2, MATIAS, TOXOG, HSVM12, CMVG, FA5 #### [address] [address] Awning Maker And Installer: Geo Mar MD #### CBC, FIB #### [address] [place], [place] [id number] Awning Maker And Installer: Mario Anne MD #### APROTS, APARVP, APROTC, ARUBGM #### [facility] [address] [place] [address] Awning Maker And Installer: Fernando Valencia MD #### LUPPRO #### [address] [address] Awning Maker And Installer: Geo Mar MD [address] [place] [id number] Awning Maker And Installer: Mario Anne MD Staging: Normal [facility] Comment on above: Result Comment: Stag e 1: Some kidney damage normal GFR Stage 2: Mild kidney damage GFR 60-89 Stage 3: Moderate kidney damage GFR 30-59 Stage 4: Severe kidney damage GFR 15-29 Stage 5: Severe kidney damage GFR <15 ESRD - chronic treatment by dialysis or transplant Performed By: #### T OXOM, HSVG12, CMVM, FA2, MATIAS, TOXOG, HSVM12, CMVG, FA5 #### [address] [address] Awning Maker And Installer: Geo Mar MD #### CBC, FIB #### [address] [place], [place] [id number] Awning Maker And Installer: Mario Anne MD #### APROTS, APARVP, APROTC, ARUBGM #### [facility] [address] [place] [address] Awning Maker And Installer: Fernando Valencia MD #### LUPPRO #### [address] [address] Awning Maker And Installer: Geo Mar MD [address] [place] [address] Awning Maker And Installer: Mario Anne MD Urea nitrogen [Mass/Vol] 7 mg/dL Normal 6-20 [facility] Comment on above: Performed By: #### T OXOM, HSVG12, CMVM, FA2, MATIAS, TOXOG, HSVM12, CMVG, FA5 #### [facility] [address] [place], [place] [id number] Awning Maker And Installer: Geo Mar MD #### CBC, FIB #### [facility] [address] [place] [address] Awning Maker And Installer: Mario Anne MD #### APROTS, APARVP, APROTC, ARUBGM #### [facility] [address] [place] [address] Awning Maker And Installer: Fernando Valencia MD #### LUPPRO #### [facility] [address] [place], [place] [id number] Awning Maker And Installer: Geo Mar MD [facility] [address] [place] [address] [place] [address] Awning Maker And Installer: Mario Anne MD Comprehensive Metabolic Pane l w/ Reflex to on 11-30-2018 Albumin [Mass/Vol] 2.9 g/dL Low 3.5 - 5.2 g/dL [place] Albumin/Globulin [Mass ratio] 1.1 {ratio} [place] ALP [Catalytic activity/Vol] 41 U/L 35 - 104 U/L [place] ALT [Catalytic activity/Vol] 17 U/L 5 - 33 U/L [place] Anion gap [Moles/Vol] 14 mmol/L 9 - 17 mmol/L [place] AST [Catalytic activity/Vol] 14 U/L <32 [place] Bilirubin Ql (U) 0.16 mg/dL Low 0.3 - 1.2 mg/dL [place] Bun/Cre Ratio 8 [place] Calcium [Mass/Vol] 8.4 mg/dL Low 8.6 - 10. 4 mg/dL [place] Chloride [Moles/Vol] 105 mmol/L 98 - 10 7 mmol/L [place] CO2 [Moles/Vol] 20 mmol/L 20 - 31 mmol/L [place] Creatinine [Mass/Vol] 0.88 mg/dL 0.5 - 0.9 mg/dL [place] GFR >60 >60 mL/min [place], [place] GFR Non- >60 >60 mL/min [place] Glucose [Mass/Vol] 123 mg/dL High 70 - 99 mg/dL [place] Interpretation and review of laboratory results Abnormal [place] Potassium [Moles/Vol] 3.7 mmol/L 3.7 - 5.3 mmol/L [place] Protein [Mass/Vol] 5.6 g/dL Low 6.4 - 8.3 g/dL [place] Sodium [Moles/Vol] 139 mmol/L 135 - 144 mmol/L [place] Urea nitrogen [Mass/Vol] 7 mg/dL 6 - 20 mg/dL [place] Cult,Urineon 11-30-2018 Cult,Urine Specimen Description .VOIDED URINE Special Requests NOT REPORTED Culture STREPTOCOCCI, BETA HEMOLYTIC GROUP B >[id number] CFU/ML Report Status FINAL 11/30/2018 Normal [facility] Comment on above: Performed By: #### T OXOM, HSVG12, CMVM, FA2, MATIAS, TOXOG, HSVM12, CMVG, FA5 #### [facility] [employer] [address] [place] [address] Awning Maker And Installer: Geo Mar MD #### CBC, FIB #### [facility] [address] [place] [address] Awning Maker And Installer: Mario Anne MD #### APROTS, APARVP, APROTC, ARUBGM #### [facility] [address] [place] [address] Awning Maker And Installer: Fernando Valencia MD #### LUPPRO #### [facility] [address] [place], [place] [id number] Awning Maker And Installer: Geo Mar MD [facility] [address] [place] [address] [place] [address] Awning Maker And Installer: Mario Anne MD Metabolic Panelon 11-30-2018 GFR/1.73 sq M predicted among non-blacks MDRD (S/P/Bld) [Vol rate/Area] [place] Comment on above: Stage 1: Some kidney damage normal GFR Stage 2: Mild kidney damage GFR 60-89 Stage 3: Moderate kidney damage GFR 30-59 Stage 4: Severe kidney damage GFR 15-29 Stage 5: Severe kidney damage GFR <15 ESRD - chronic treatment by dialysis or transplant Average GFR for 20-2 9 years old: 116 mL/min/1.73sq m Chronic Kidney Disease: <60 mL/min/1.73sq m Kidney failure: <15 mL/min/1.73sq m eGFR calculated using average adult body mass. Additional eGFR calculator available at: http://www.Duriana/multiple_crcl_2012.htm Vancomycin Troughon 12-01-19 19 Vancomycin Trough 22.3 ug/mL Critically high 10.0-20.0 [facility] Comment on above: Result Comment: High er trough serum vancomycin concentrations of 15-20 ug/mL are recommended for complicated infections such as bacteremia, endocarditis, osteomyelitis, meningitis, and hospital acquired pneumonia. Performed By: #### T OXOM, HSVG12, CMVM, FA2, MATIAS, TOXOG, HSVM12, CMVG, FA5 #### [facility] [address] [place], [place] [id number] Awning Maker And Installer: Geo Mar MD #### CBC, FIB #### [facility] [address] [place] [address] Awning Maker And Installer: Mario Anne MD #### APROTS, APARVP, APROTC, ARUBGM #### [facility] [address] [place] [address] Awning Maker And Installer: Fernando Valencia MD #### LUPPRO #### [address] [address] Awning Maker And Installer: Geo Mar MD [address] [place], [place] [id number] Awning Maker And Installer: Mario Anne MD Date last dose, NOT REPORTED Normal [facility] Comment on above: Performed By: #### T OXOM, HSVG12, CMVM, FA2, MATIAS, TOXOG, HSVM12, CMVG, FA5 #### [address] [address] Awning Maker And Installer: Geo Mar MD #### CBC, FIB #### [address] [place], [place] 2762183 Awning Maker And Installer: Mario Anne MD #### APROTS, APARVP, APROTC, ARUBGM #### [facility] [address] [place] [address] Awning Maker And Installer: Fernando Valencia MD #### LUPPRO #### [address] [address] Awning Maker And Installer: Geo Mar MD [address] [place], [place] 4158383 Awning Maker And Installer: Mario Anne MD Dose amount, NOT REPORTED Normal [facility] Comment on above: Performed By: #### T OXOM, HSVG12, CMVM, FA2, MATIAS, TOXOG, HSVM12, CMVG, FA5 #### [address] [address] Awning Maker And Installer: Geo Mar MD #### CBC, FIB #### [address] [place], [place] 8156383 Awning Maker And Installer: Mario Anne MD #### APROTS, APARVP, APROTC, ARUBGM #### [facility] [address] [place] [address] Awning Maker And Installer: Fernando Valencia MD #### LUPPRO #### [facility] [address] [place] [address] Awning Maker And Installer: Geo Mar MD [address] [place], [place] 500[address]183 Awning Maker And Installer: Mario Anne MD Time last dose, NOT REPORTED Normal [facility] Comment on above: Performed By: #### T OXOM, HSVG12, CMVM, FA2, MATIAS, TOXOG, HSVM12, CMVG, FA5 #### [facility] [address] [place] [address] Awning Maker And Installer: Geo Mar MD #### CBC, FIB #### [address] [place] [phone] Awning Maker And Installer: Mario Anne MD #### APROTS, APARVP, APROTC, ARUBGM #### [facility] [address] [place] [address] Awning Maker And Installer: Fernando Valencia MD #### LUPPRO #### [address] [address] Awning Maker And Installer: Geo Mar MD [address] [place] [phone] Awning Maker And Installer: Mario Anne MD Vancomycin, troughon 019 Interpretation and review of laboratory results Abnormal [place] Vancomycin Tr 22.3 ug/mL Critically high 10 - 20 ug/mL [place] Comment on above: Higher trough serum vancomycin concentrations of 15-20 ug/mL are recommended for complicated infections such as bacteremia, endocarditis, osteomyelitis, meningitis, and hospital acquired pneumonia. Vancomycin Trough Date last dose NOT REPORTED [place] Vancomycin Trough Dose amount NOT REPORTED [place] Vancomycin Trough Time last dose NOT REPORTED [place] CBCon 11-29-2018 Erythrocyte distribution width (RBC) [Ratio] 13.4 % Normal 11.8-14.4 [facility] Comment on above: Performed By: #### T YS #### [facility] [address] [place] [address] Awning Maker And Installer: Mario Anne MD Hematocrit (Bld) [Volume fraction] 27.2 % Low 36.3-47.1 [facility] Comment on above: Performed By: #### T YS #### [facility] [address] [place], [place] [phone] Awning Maker And Installer: Mario Anne MD Hemoglobin (Bld) [Mass/Vol] 8.3 g/dL Low 11.9-15.1 [facility] Comment on above: Performed By: #### T YS #### [address] [place], [place] 4089683 Awning Maker And Installer: Mario Anne MD MCH (RBC) [Entitic mass] 27.9 pg Normal 25.2-33.5 [facility] Comment on above: Performed By: #### T YS #### [address] [place] [address] Awning Maker And Installer: Mario Anne MD MCHC (RBC) [Mass/Vol] 30.5 g/dL Normal 28.4-34.8 [facility] Comment on above: Performed By: #### T YS #### [facility] [address] [place] [address] Awning Maker And Installer: Mario Anne MD MCV (RBC) [Entitic vol] 91.3 fL Normal 82.6-102.9 [facility] Comment on above: Performed By: #### T YS #### [facility] [address] [place] [address] Awning Maker And Installer: Mario Anne MD NRBC Automated 0.0 per 100 WBC Normal 0.0 [facility] Comment on above: Performed By: #### T YS #### [facility] [address] [place], [facility]83 Awning Maker And Installer: Mario Anne MD Platelet mean volume (Bld) [Entitic vol] 9.6 fL Normal 8.1-13.5 [facility] Comment on above: Performed By: #### T YS #### [facility] [address] [place] [facility]83 Awning Maker And Installer: Mario Anne MD Platelets (Bld) [#/Vol] 243 10*3/uL Normal 138-453 [facility] Comment on above: Performed By: #### T YS #### [facility] [address] [place] [address] Awning Maker And Installer: Mario Anne MD RBC (Bld) [#/Vol] 2.98 10*6/uL Low 3.95-5.11 [facility] Comment on above: Performed By: #### T YS #### [facility] [address] [place] [facility]83 Awning Maker And Installer: Mario Anne MD WBC (Bld) [#/Vol] 16.6 10*3/uL High 3.5-11.3 [facility] Comment on above: Performed By: #### T YS #### [facility] [address] [place], [facility]83 Awning Maker And Installer: Mario Anne MD Erythrocyte distribution width (RBC) [Ratio] 13.4 % 11.8 - 14.4 % [place] Hematocrit (Bld) [Volume fraction] 27.2 % Low 36.3 - 47.1 % [place] Hemoglobin (Bld) [Mass/Vol] 8.3 g/dL Low 11.9 - 15.1 g/dL [place] Interpretation and review of laboratory results Abnormal [place] MCH (RBC) [Entitic mass] 27.9 pg 25.2 - 33.5 pg [place] MCHC (RBC) [Mass/Vol] 30.5 g/dL 28.4 - 34.8 g/dL [place] MCV (RBC) [Entitic vol] 91.3 fL 82.6 - 102.9 fL [place] Platelet mean volume (Bld) [Entitic vol] 9.6 fL 8.1 - 13.5 fL [place] Platelets (Bld) [#/Vol] 243 10*3/uL [place] RBC (Bld) [#/Vol] 2.98 10*6/uL Low 3.95 - 5.1 1 m/uL [place] WBC (Bld) [#/Vol] 16.6 10*3/uL High [place] WBC (Bld) [#/Vol] 0.0 10*3/uL 0.0 per 10 0 WBC [place] CONSULTATIONon 11-29-[address] [id number] CONSULTATION PATIENT NAME: DEION CUMMINGS : 1995 MED REC NO: [id number] ROOM: 0328 ACCOUNT NO: [id number] ADMIT DATE: 11/28/2018 PROVIDER: Jennifer Hedrick CONSULT DATE: 11/29/2018 CHIEF COMPLAINT: Admission for cellulitis in close proximity to second trimester loss. HISTORY OF PRESENT ILLNESS: The patient is a 23-year-old white female, 1, para 1, living 0, whom presented to the hospital on 11/24/2018 with complaints of vaginal bleeding. This had been a recurrent problem throughout her and no obvious etiology was ever found for it. The patient was observed for this problem, and did have a spontaneous labor and delivery early on the morning of 11/25/2018. This resulted in a miscarriage at 21 weeks 3 days with expulsion of the placenta without any obvious retained placenta. Workup was done for this and of significance, there was no amniotic fluid surrounding the fetus, although the patient denied any obvious leaking of fluid. The patient was discharged to home following the labor and delivery. She presented then last night to the emergency room with acute episode of cellulitis and possible UTI. Please see the other portions of the past medical history. Of significance in general, the patient is afebrile at this time, however, emotionally, the patient is very distraught. During her interview with me, she cried throughout the procedure. She is well oriented and did not make much eye contact either. On exam, abdomen is nontender, morbid obesity noted. On questioning, there is not any active bleeding per the patient's history as well. Area of cellulitis on the leg was noted. Labs, CT, and ultrasounds were all reviewed. ASSESSMENT AND PLAN: Cellulitis, possible UTI. No evidence of any retained products of conception. As mentioned, it is possible that if the patient had a prolonged rupture of membranes, this could have allowed a bacteremia that may have contributed to a cellulitis. I am also concerned about her emotional status with a normal grief reaction and the possibility of depression. I did encourage her to use some medication to help with this, but she did decline. During her hospitalization, I will follow her for this issue. Antibiotics are appropriate and the changes made also appropriate and do concur should cover these other issues. Thank you for the consultation in this matter. JENNIFER HEDRICK [id number] Doc#: [id number] CC: Normal [facility] Comp Metabolic Pr/rfx MGon 0 11-29-2018 (cont.) [facility] Comment on above: Result Comment: Aver age GFR for 20-29 years old: 116 mL/min/1.73sq m Chronic Kidney Disease: <60 mL/min/1.73sq m Kidney failure: <15 mL/min/1.73sq m eGFR calculated using average adult body mass. Additional eGFR calculator available at: http://www.Capptain.Attender/multiple_crcl_2012.htm Performed By: #### T YS #### [facility] [address] [place] [address] Awning Maker And Installer: Mario Anne MD Albumin [Mass/Vol] 3.1 g/dL Low 3.5-5.2 [facility] Comment on above: Performed By: #### T YS #### [facility] [address] [place], [place] 7[address]83 Awning Maker And Installer: Mario Anne MD Albumin/Globulin [Mass ratio] 1.2 {ratio} Normal 1.0-2.5 [facility] Comment on above: Performed By: #### T YS #### [facility] [address] [place], [place] 748[address]83 Awning Maker And Installer: Mario Anne MD Alkaline Phos 38 U/L Normal 35-104 [facility] Comment on above: Performed By: #### T YS #### [facility] [address] [place] [address]3 Awning Maker And Installer: Mario Anne MD ALT [Catalytic activity/Vol] 15 U/L Normal 5-33 [facility] Comment on above: Performed By: #### T YS #### [facility] [address] [place], [place] 4974483 Awning Maker And Installer: Mario Anne MD Anion gap [Moles/Vol] 13 mmol/L Normal 9-17 [facility] Comment on above: Performed By: #### T YS #### [facility] [address] [place] [address] Awning Maker And Installer: Mario Anne MD AST [Catalytic activity/Vol] 11 U/L Normal <32 [facility] Comment on above: Performed By: #### T YS #### [facility] [address] [place], [place] 5264083 Awning Maker And Installer: Mario Anne MD Bilirubin Ql (U) 0.56 mg/dL Normal 0.3-1.2 [facility] Comment on above: Performed By: #### T YS #### [facility] [address] [place], [place] [address]12[address] Awning Maker And Installer: Mario Anne MD BUN/CRE Ratio 9 Normal 9-20 [facility] Comment on above: Performed By: #### T YS #### [facility] [address] [place], [place] [address]83 Awning Maker And Installer: Mario Anne MD Calcium [Mass/Vol] 8.5 mg/dL Low 8.6-10.4 [facility] Comment on above: Performed By: #### T YS #### [facility] [address] [place], [place] 219[address]83 Awning Maker And Installer: Mario Anne MD Chloride [Moles/Vol] 101 mmol/L Normal 98-107 [facility] Comment on above: Performed By: #### T YS #### [facility] [address] [place], [place] 7[address]2483 Awning Maker And Installer: Mario Anne MD CO2 [Moles/Vol] 20 mmol/L Normal 20-31 [facility] Comment on above: Performed By: #### T YS #### [facility] [address] [place], [place] [id number] Awning Maker And Installer: Mario Anne MD Creatinine [Mass/Vol] 0.80 mg/dL Normal 0.50-0.90 [facility] Comment on above: Performed By: #### T YS #### [facility] [address] [place], [place] 320[address]83 Awning Maker And Installer: Mario Anne MD GFR, Amer >60 Normal >60 [facility] Comment on above: Performed By: #### T YS #### [facility] [address] [place], [place] 125[address]83 Awning Maker And Installer: Mario Anne MD GFR,non Amer >60 Normal >60 [facility] Comment on above: Performed By: #### T YS #### [facility] [address] [place], [place] [address] Awning Maker And Installer: Mario Anne MD Glucose [Mass/Vol] 121 mg/dL High 70-99 [facility] Comment on above: Performed By: #### T YS #### [facility] [address] [place] [address] Awning Maker And Installer: Mario Anne MD Potassium [Moles/Vol] 3.4 mmol/L Low 3.7-5.3 [facility] Comment on above: Performed By: #### T YS #### [facility] [address] [place] 1458183 Awning Maker And Installer: Mario Anne MD Protein [Mass/Vol] 5.7 g/dL Low 6.4-8.3 [facility] Comment on above: Performed By: #### T YS #### [facility] [address] [place] [address] Awning Maker And Installer: Mario Anne MD Sodium [Moles/Vol] 134 mmol/L Low 135-144 [facility] Comment on above: Performed By: #### T YS #### [facility] [address] [place] [address] Awning Maker And Installer: Mario Anne MD Staging: Normal [facility] Comment on above: Result Comment: Stag e 1: Some kidney damage normal GFR Stage 2: Mild kidney damage GFR 60-89 Stage 3: Moderate kidney damage GFR 30-59 Stage 4: Severe kidney damage GFR 15-29 Stage 5: Severe kidney damage GFR <15 ESRD - chronic treatment by dialysis or transplant Performed By: #### T YS #### [facility] [address] [place] [id number] Awning Maker And Installer: Mario Anne MD Urea nitrogen [Mass/Vol] 7 mg/dL Normal 6-20 [facility] Comment on above: Performed By: #### T YS #### [facility] [address] [place] [address] Awning Maker And Installer: Mario Anne MD Comprehensive Metabolic Pane l w/ Reflex to MGon 11-29-2018 Albumin [Mass/Vol] 3.1 g/dL Low 3.5 - 5.2 g/dL [place] Albumin/Globulin [Mass ratio] 1.2 {ratio} [place] ALP [Catalytic activity/Vol] 38 U/L 35 - 104 U/L [place] ALT [Catalytic activity/Vol] 15 U/L 5 - 33 U/L [place] Anion gap [Moles/Vol] 13 mmol/L 9 - 17 mmol/L [place] AST [Catalytic activity/Vol] 11 U/L <32 [place] Bilirubin Ql (U) 0.56 mg/dL 0.3 - 1.2 mg/dL [place] Bun/Cre Ratio 9 [place] Calcium [Mass/Vol] 8.5 mg/dL Low 8.6 - 10. 4 mg/dL [place] Chloride [Moles/Vol] 101 mmol/L 98 - 10 7 mmol/L [place] CO2 [Moles/Vol] 20 mmol/L 20 - 31 mmol/L [place] Creatinine [Mass/Vol] 0.8 mg/dL 0.5 - 0.9 mg/dL [place] GFR >60 >60 mL/min [place] GFR Non- >60 >60 mL/min [place] Glucose [Mass/Vol] 121 mg/dL High 70 - 99 mg/dL [place] Interpretation and review of laboratory results Abnormal [place] Potassium [Moles/Vol] 3.4 mmol/L Low 3.7 - 5.3 mmol/L [place] Protein [Mass/Vol] 5.7 g/dL Low 6.4 - 8.3 g/dL [place] Sodium [Moles/Vol] 134 mmol/L Low 135 - 144 mmol/L [place] Urea nitrogen [Mass/Vol] 7 mg/dL 6 - 20 mg/dL [place] Factor II Activityon 019 Factor II Activity 120 % Normal 50-150 [facility] Comment on above: Performed By: #### C BC #### [facility] [address] [place], [place] [address]27[address] Awning Maker [employer] Installer: Mario Anne MD Factor V Activityon 11-30-19 19 Factor V Activity 120 % Normal 50-150 [facility] Comment on above: Performed By: #### C BC #### [facility] [address] [place], [place] [id number] Awning Maker And Installer: Mario Anne MD Lupus Anticoagulanton 2018 Dilute Alexandr Viper Negative Normal NLUP [facility] Comment on above: Performed By: #### C BC #### [facility] [address] [address] [place], [place] [id number] Awning Maker And Installer: Mario Anne MD Magnesiumon 11-29-2018 Magnesium [Mass/Vol] 1.9 mg/dL Normal 1.6-2.6 [facility] Comment on above: Performed By: #### T YS #### [facility] [address] [place], [place] [id number] Awning Maker And Installer: Mario Anne MD Magnesium [Mass/Vol] 1.9 mg/dL 1.6 - 2 .6 mg/dL [place], [place] Metabolic Panelon 11-29-2018 GFR/1.73 sq M predicted among non-blacks MDRD (S/P/Bld) [Vol rate/Area] [place], [place] Comment on above: Average GFR for 20-2 9 years old: 116 mL/min/1.73sq m Chronic Kidney Disease: <60 mL/min/1.73sq m Kidney failure: <15 mL/min/1.73sq m eGFR calculated using average adult body mass. Additional eGFR calculator available at: http://www.Capptain.Attender/multiple_crcl_2012.htm Stage 1: Some kidney damage normal GFR Stage 2: Mild kidney damage GFR 60-89 Stage 3: Moderate kidney damage GFR 30-59 Stage 4: Severe kidney damage GFR 15-29 Stage 5: Severe kidney damage GFR <15 ESRD - chronic treatment by dialysis or transplant US PELVIS COMPLETEon 019 US PELVIS COMPLETE EXAMINATION: PELVIC ULTRASOUND 11/28/2018 TECHNIQUE: Transabdominal pelvic ultrasound COMPARISON: None HISTORY: ORDERING SYSTEM PROVIDED HISTORY: Rule out retained products of conception FINDINGS: No intrauterine gestational sac is identified. The endometrium measures up to 6.7 mm in thickness. No retained products of conception are demonstrated. IMPRESSION: No retained products demonstrated. Interpreted by: Nba Thomas MD Signed by: Nba Thomas MD 11/29/18 Final result Normal [facility] No retained products demonstrated. [facility] [place], Mhpn Incoming Radiant Results From [employer]/Pacs - 11/29/2018 12:12 AM EDT EXAMINATION: PELVIC ULTRASOUND 11/28/2018 TECHNIQUE: Transabdominal pelvic ultrasound COMPARISON: None HISTORY: ORDERING SYSTEM PROVIDED HISTORY: Rule out retained products of conception FINDINGS: No intrauterine gestational sac is identified. The endometrium measures up to 6.7 mm in thickness. No retained products of conception are demonstrated. IMPRESSION: No retained products demonstrated. [place], [place] EXAMINATION: PELVIC ULTRASOUND 11/28/2018 TECHNIQUE: Transabdominal pelvic ultrasound COMPARISON: None HISTORY: ORDERING SYSTEM PROVIDED HISTORY: Rule out retained products of conception FINDINGS: No intrauterine gestational sac is identified. The endometrium measures up to 6.7 mm in thickness. No retained products of conception are demonstrated. [facility] [place] VL DUP LOWER EXTREMITY VENOU S BILATERALon 11-29-2018 Bonif[place], Mhpn Incoming Cardio Results From Cpacs/Ge - 11/29/2018 3:57 PM EDT [facility] Vascular Lower Extremities DVT Study Procedure Patient Name TOMY Date of Study 11/29/2018 DEION L Date of 1995 Gender Female Age 23 year(s) Race Room Number 0328 Corporate ID [id number] # Patient Acct [id number] # MR # [id number] Dowel Machine Operator CARLOS Carey Interpreting Physician Matt Mayer MD Referring Referring Physician Marciano Griffin PA-C Nurse Practitioner Additional Comments Results reported to Marciano Griffin PA-C, 11/29/2018 @ 0908. Procedure Type of Study: Veins: Lower Extremities DVT Study, Venous Scan Lower Bilateral. Patient Status:In Patient. Comments:INDICATIONS: RLE redness swelling, Conclusions Summary No evidence of superficial or deep venous thrombosis in both lower extremities to the extent visualized. Signature Findings: Right Impression: Left Impression: The common femoral, femoral, deep The common femoral, femoral, deep femoral, popliteal, tibials, femoral, popliteal, tibials, peroneal, and saphenous veins were peroneal, and saphenous veins were evaluated. evaluated. Poor resolution of the peroneal Poor resolution of the peroneal veins veins was noted. was noted. All other veins were compressible All other veins were compressible with normal doppler responses. with normal doppler responses. Prominent lymph nodes were visualized in the groin. Velocities are measured in cm/s ; Diameters are measured in cm Right Lower Extremities DVT Study Measurements Right 2D Measurements + +------ ----+ +- --------- + !Location !Visualized!Compressib ility!Thrombosis! + +------ ----+ +- --------- + !Common Femoral !Yes !Yes !None ! + +------ ----+ +- --------- + !Prox Femoral !Yes !Yes !None ! + +------ ----+ +- --------- + !Mid Femoral !Yes !Yes !None ! + +------ ----+ +- --------- + !Dist Femoral !Yes !Yes !None ! + +------ ----+ +- --------- + !Deep Femoral !Yes !Yes !None ! + +------ ----+ +- --------- + !Popliteal !Yes !Yes !None ! + +------ ----+ +- --------- + !Sapheno Femoral Junction !Yes !Yes !None ! + +------ ----+ +- --------- + !PTV !Yes !Yes !None ! + +------ ----+ +- --------- + !Peroneal !No ! ! ! + +------ ----+ +- --------- + !Gastroc !Yes !Yes !None ! + +------ ----+ +- --------- + !GSV Thigh !Yes !Yes !None ! + +------ ----+ +- --------- + !GSV Knee !Yes !Yes !None ! + +------ ----+ +- --------- + !GSV Ankle !Yes !Yes !None ! + +------ ----+ +- --------- + !SSV !Yes !Yes !None ! + +------ ----+ +- --------- + Right Doppler Measurements + ------+------+------+- --------- + !Location !Signal!Reflux!Reflux (msec) ! + ------+------+------+- --------- + !Common Femoral !Phasic! ! ! + ------+------+------+- --------- + !Prox Femoral !Phasic! ! ! + ------+------+------+- --------- + !Popliteal !Phasic! ! ! + ------+------+------+- --------- + Left Lower Extremities DVT Study Measurements Left 2D Measurements + +------ ----+ +- --------- + !Location !Visualized!Compressib ility!Thrombosis! + +------ ----+ +- --------- + !Common Femoral !Yes !Yes !None ! + +------ ----+ +- --------- + !Prox Femoral !Yes !Yes !None ! + +------ ----+ +- --------- + !Mid Femoral !Yes !Yes !None ! + +------ ----+ +- --------- + !Dist Femoral !Yes !Yes !None ! + +------ ----+ +- --------- + !Deep Femoral !Yes !Yes !None ! + +------ ----+ +- --------- + !Popliteal !Yes !Yes !None ! + +------ ----+ +- --------- + !Sapheno Femoral Junction !Yes !Yes !None ! + +------ ----+ +- --------- + !PTV !Yes !Yes !None ! + +------ ----+ +- --------- + !Peroneal !No ! ! ! + +------ ----+ +- --------- + !Gastroc !Yes !Yes !None ! + +------ ----+ +- --------- + !GSV Thigh !Yes !Yes !None ! + +------ ----+ +- --------- + !GSV Knee !Yes !Yes !None ! + +------ ----+ +- --------- + !GSV Ankle !Yes !Yes !None ! + +------ ----+ +- --------- + !SSV !Yes !Yes !None ! + +------ ----+ +- --------- + Left Doppler Measurements + ------+------+------+- --------- + !Location !Signal!Reflux!Reflux (msec) ! + ------+------+------+- --------- + !Common Femoral !Phasic! ! ! + ------+------+------+- --------- + !Prox Femoral !Phasic! ! ! + ------+------+------+- --------- + !Popliteal !Phasic! ! ! + ------+------+------+- --------- + [facility] [place] Vascular Lower Extremities DVT Study Procedure Patient Name TOMY Date of Study 11/29/2018 DEION Lopez Date of 1995 Gender Female Age 23 year(s) Race Room Number 0328 Corporate ID [id number] # Patient Acct [id number] # MR # [id number] Dowel Machine Operator CARLOS Carey Interpreting Physician Matt Mayer MD Referring Referring Physician Marciano Griffin PA-C Nurse Practitioner Additional Comments Results reported to Marciano Griffin PA-C, 11/29/2018 @ 0908. Procedure Type of Study: Veins: Lower Extremities DVT Study, Venous Scan Lower Bilateral. Patient Status:In Patient. Comments:INDICATIONS: RLE redness swelling, Conclusions Summary No evidence of superficial or deep venous thrombosis in both lower extremities to the extent visualized. Signature Findings: Right Impression: Left Impression: The common femoral, femoral, deep The common femoral, femoral, deep femoral, popliteal, tibials, femoral, popliteal, tibials, peroneal, and saphenous veins were peroneal, and saphenous veins were evaluated. evaluated. Poor resolution of the peroneal Poor resolution of the peroneal veins veins was noted. was noted. All other veins were compressible All other veins were compressible with normal doppler responses. with normal doppler responses. Prominent lymph nodes were visualized in the groin. Velocities are measured in cm/s ; Diameters are measured in cm Right Lower Extremities DVT Study Measurements Right 2D Measurements + +------ ----+ +- ---------+ !Location !Visualized!Compressib ility!Thrombosis! + +------ ----+ +- ---------+ !Common Femoral !Yes !Yes !None ! + +------ ----+ +- ---------+ !Prox Femoral !Yes !Yes !None ! + +------ ----+ +- ---------+ !Mid Femoral !Yes !Yes !None ! + +------ ----+ +- ---------+ !Dist Femoral !Yes !Yes !None ! + +------ ----+ +- ---------+ !Deep Femoral !Yes !Yes !None ! + +------ ----+ +- ---------+ !Popliteal !Yes !Yes !None ! + +------ ----+ +- ---------+ !Sapheno Femoral Junction !Yes !Yes !None ! + +------ ----+ +- ---------+ !PTV !Yes !Yes !None ! + +------ ----+ +- ---------+ !Peroneal !No ! ! ! + +------ ----+ +- ---------+ !Gastroc !Yes !Yes !None ! + +------ ----+ +- ---------+ !GSV Thigh !Yes !Yes !None ! + +------ ----+ +- ---------+ !GSV Knee !Yes !Yes !None ! + +------ ----+ +- ---------+ !GSV Ankle !Yes !Yes !None ! + +------ ----+ +- ---------+ !SSV !Yes !Yes !None ! + +------ ----+ +- ---------+ Right Doppler Measurements + ------+------+------+- ---------+ !Location !Signal!Reflux!Reflux (msec) ! + ------+------+------+- ---------+ !Common Femoral !Phasic! ! ! + ------+------+------+- ---------+ !Prox Femoral !Phasic! ! ! + ------+------+------+- ---------+ !Popliteal !Phasic! ! ! + ------+------+------+- ---------+ Left Lower Extremities DVT Study Measurements Left 2D Measurements + +------ ----+ +- ---------+ !Location !Visualized!Compressib ility!Thrombosis! + +------ ----+ +- ---------+ !Common Femoral !Yes !Yes !None ! + +------ ----+ +- ---------+ !Prox Femoral !Yes !Yes !None ! + +------ ----+ +- ---------+ !Mid Femoral !Yes !Yes !None ! + +------ ----+ +- ---------+ !Dist Femoral !Yes !Yes !None ! + +------ ----+ +- ---------+ !Deep Femoral !Yes !Yes !None ! + +------ ----+ +- ---------+ !Popliteal !Yes !Yes !None ! + +------ ----+ +- ---------+ !Sapheno Femoral Junction !Yes !Yes !None ! + +------ ----+ +- ---------+ !PTV !Yes !Yes !None ! + +------ ----+ +- ---------+ !Peroneal !No ! ! ! + +------ ----+ +- ---------+ !Gastroc !Yes !Yes !None ! + +------ ----+ +- ---------+ !GSV Thigh !Yes !Yes !None ! + +------ ----+ +- ---------+ !GSV Knee !Yes !Yes !None ! + +------ ----+ +- ---------+ !GSV Ankle !Yes !Yes !None ! + +------ ----+ +- ---------+ !SSV !Yes !Yes !None ! + +------ ----+ +- ---------+ Left Doppler Measurements + ------+------+------+- ---------+ !Location !Signal!Reflux!Reflux (msec) ! + ------+------+------+- ---------+ !Common Femoral !Phasic! ! ! + ------+------+------+- ---------+ !Prox Femoral !Phasic! ! ! + ------+------+------+- ---------+ !Popliteal !Phasic! ! ! + ------+------+------+- ---------+ [facility] [place] APTTon 11-28-2018 aPTT Coag (Bld) [Time] 21.5 s Low 23.2-34.4 [facility] Comment on above: Performed By: #### L IP, CMPX, PT, CDP, PTT ####[facility] , [place] [id number] lab Director: Mario Anne MD aPTT Coag (Bld) [Time] 21.5 s Low [facility] [place] Blood gas, venouson 11-29-19 19 Marco Test NOT REPORTED [facility] [place] aPTT Coag (Bld) [Time] NOT REPORTED [facility] [place] Carboxyhemoglobin 0 - 5 % [facility] FIO2 NOT REPORTED [facility] [place] HCO3, Venous 20.5 mmol/L Low 24 - 30 mmol/L [facility] Interpretation and review of laboratory results Abnormal [facility] [place] Methemoglobin NOT REPORTED 0 - 1.9 % [facility] Mode NOT REPORTED [facility] [place] Negative Base Excess, [place] 2.9 mmol/L High 0 - 2 mmol/L [place], [place] NOTIFICATION NOT REPORTED [place], [place] NOTIFICATION TIME NOT REPORTED [place] O2 Device/Flow/% NOT REPORTED [place] Oxygen saturation in Blood 40.2 % Low 60 - 85 % [place] Oxyhemoglobin NOT REPORTED 95 - 98 % [place] pCO2, [place] 31.9 Low [place] pCO2, [place], Temp Adj NOT REPORTED [place] Peep/Cpap NOT REPORTED [place] pH, [place] 7.425 High [place] pH, [place], Temp Adj NOT REPORTED [place] pO2, [place] 22.2 Low [place] pO2, [place], Temp Adj NOT REPORTED [place], [place] Positive Base Excess, [place] NOT REPORTED 0 - 2 mmol/L [place] PSV NOT REPORTED [place] Pt. Position NOT REPORTED [place] Sample Site NOT REPORTED [place] Set Rate NOT REPORTED [place] Text for Respiratory NOT REPORTED [place] Total Hb NOT REPORTED 12 - 16 g/dl [place] Total Rate NOT REPORTED [place] VT NOT REPORTED [place] CBC auto differentialon 11-19 Basophils (Bld) [#/Vol] 0.03 10*3/uL [place] Basophils/100 WBC (Bld) 0 % 0 - 2 % [place] Differential Type NOT REPORTED [place] Eosinophils (Bld) [#/Vol] 0.17 10*3/uL [place] Eosinophils/100 WBC (Bld) 1 % 1 - 4 % [place] Erythrocyte distribution width (RBC) [Ratio] 13.3 % 11.8 - 14.4 % [place] Hematocrit (Bld) [Volume fraction] 30.5 % Low 36.3 - 47.1 % [place] Hemoglobin (Bld) [Mass/Vol] 9.6 g/dL Low 11.9 - 15.1 g/dL [place] Immature granulocytes (Bld) [#/Vol] 1 % High 0 [place] Immature granulocytes (Bld) [#/Vol] 0.09 10*3/uL [place] Interpretation and review of laboratory results Abnormal [place] Lymphocytes (Bld) [#/Vol] 0.80 10*3/uL Low [place] Lymphocytes/100 WBC (Bld) 5 % Low 24 - 43 % [place] MCH (RBC) [Entitic mass] 28.1 pg 25.2 - 33.5 pg [place] MCHC (RBC) [Mass/Vol] 31.5 g/dL 28.4 - 34.8 g/dL [place] MCV (RBC) [Entitic vol] 89.2 fL 82.6 - 102.9 fL [place] Monocytes (Bld) [#/Vol] 0.65 10*3/uL [place] Monocytes/100 WBC (Bld) 4 % 3 - 12 % [place] Platelet mean volume (Bld) [Entitic vol] 9.9 fL 8.1 - 13.5 fL [place] Platelets (Bld) [#/Vol] 305 10*3/uL [place] Platelets (Bld) [#/Vol] NOT REPORTED [place] RBC (Bld) [#/Vol] 3.42 10*6/uL Low 3.95 - 5.1 1 m/uL [place] RBC morphology finding Nom (Bld) NOT REPORTED [place] Segmented neutrophils/100 WBC (Bld) 89 % High 36 - 65 % [place] Segs Absolute 15.13 [place] WBC (Bld) [#/Vol] 16.9 10*3/uL High [place] WBC (Bld) [#/Vol] 0.0 10*3/uL 0.0 per 10 0 WBC [place] WBC Morphology NOT REPORTED [place], [place] CBC with Diffon 11-28-2018 Abs. Basophil 0.03 k/uL Normal 0.00-0.20 [facility] Comment on above: Performed By: #### L IP, CMPX, PT, CDP, PTT ####[address] , [place] [id number] Lab Director: Mario Anne MD Abs.Imm.Granulocyte 0.09 k/uL Normal 0.00-0.30 [facility] Comment on above: Performed By: #### L IP, CMPX, PT, CDP, PTT ####[address] , [place] [id number] Lab Director: Mario Anne MD Abs.Neutrophil (Seg) 15.13 k/uL High 1.50-8.10 [facility] Comment on above: Performed By: #### L IP, CMPX, PT, CDP, PTT ####[address] , [facility] Lab Director: Mario Anne MD Basophils/100 WBC (Bld) 0 % Normal 0-2 [facility] Comment on above: Performed By: #### L IP, CMPX, PT, CDP, PTT ####[address] , [place] [id number] Lab Director: Mario Anne MD Eosinophils (Bld) [#/Vol] 0.17 10*3/uL Normal 0.00-0.44 [facility] Comment on above: Performed By: #### L IP, CMPX, PT, CDP, PTT ####[address] , [place] [id number] Lab Director: Mario Anne MD Eosinophils/100 WBC (Bld) 1 % Normal 1-4 [facility] Comment on above: Performed By: #### L IP, CMPX, PT, CDP, PTT ####[address] , [place] [id number] Lab Director: Mario Anne MD Erythrocyte distribution width (RBC) [Ratio] 13.3 % Normal 11.8-14.4 [facility] Comment on above: Performed By: #### L IP, CMPX, PT, CDP, PTT ####[address] , [facility])[phone] Director: Mario Anne MD Hematocrit (Bld) [Volume fraction] 30.5 % Low 36.3-47.1 [facility] Comment on above: Performed By: #### L IP, CMPX, PT, CDP, PTT ####[address] , [place] [address])[phone] Director: Mario Anne MD Hemoglobin (Bld) [Mass/Vol] 9.6 g/dL Low 11.9-15.1 [facility] Comment on above: Performed By: #### L IP, CMPX, PT, CDP, PTT ####[address] , [place] [address])[phone] Director: Mario Anne MD Immature granulocytes (Bld) [#/Vol] 1 % High 0 [facility] Comment on above: Performed By: #### L IP, CMPX, PT, CDP, PTT ####[address] , [facility])[phone] Director: Mario Anne MD Lymphocytes (Bld) [#/Vol] 0.80 10*3/uL Low 1.10-3.70 [facility] Comment on above: Performed By: #### L IP, CMPX, PT, CDP, PTT ####[address] , [facility])[phone] Director: Mario Anne MD Lymphocytes/100 WBC (Bld) 5 % Low 24-43 [facility] Comment on above: Performed By: #### L IP, CMPX, PT, CDP, PTT ####[address] , [facility]83 Lab Director: Mario Anne MD MCH (RBC) [Entitic mass] 28.1 pg Normal 25.2-33.5 [facility] Comment on above: Performed By: #### L IP, CMPX, PT, CDP, PTT ####[address] , [facility] lab Director: Mario Anne MD MCHC (RBC) [Mass/Vol] 31.5 g/dL Normal 28.4-34.8 [facility] Comment on above: Performed By: #### L IP, CMPX, PT, CDP, PTT ####[address] , [facility] lab Director: Mario Anne MD MCV (RBC) [Entitic vol] 89.2 fL Normal 82.6-102.9 [facility] Comment on above: Performed By: #### L IP, CMPX, PT, CDP, PTT ####[address] , [facility] lab Director: Mario Anne MD Monocytes (Bld) [#/Vol] 0.65 10*3/uL Normal 0.10-1.20 [facility] Comment on above: Performed By: #### L IP, CMPX, PT, CDP, PTT ####[address] , [facility] Lab Director: Mario Anne MD Monocytes/100 WBC (Bld) 4 % Normal 3-12 [facility] Comment on above: Performed By: #### L IP, CMPX, PT, CDP, PTT ####[address] , [facility]83 lab Director: Mario Anne MD Neutrophil (Seg) 89 % High 36-65 [facility] Comment on above: Performed By: #### L IP, CMPX, PT, CDP, PTT ####[address] , [place] [id number] Lab Director: Mario Anne MD NRBC Automated 0.0 per 100 WBC Normal 0.0 [facility] Comment on above: Performed By: #### L IP, CMPX, PT, CDP, PTT ####[address] , [place] [id number] Lab Director: Mario Anne MD Platelet mean volume (Bld) [Entitic vol] 9.9 fL Normal 8.1-13.5 [facility] Comment on above: Performed By: #### L IP, CMPX, PT, CDP, PTT ####[address] [place] [address] Lab Director: Mario Anne MD Platelets (Bld) [#/Vol] 305 10*3/uL Normal 138-453 [facility] Comment on above: Performed By: #### L IP, CMPX, PT, CDP, PTT ####[address] , [place] [id number])[phone] Director: Mario Anne MD RBC (Bld) [#/Vol] 3.42 10*6/uL Low 3.95-5.11 [facility] Comment on above: Performed By: #### L IP, CMPX, PT, CDP, PTT ####[address] , [place] [address])[phone] Director: Mario Anne MD WBC (Bld) [#/Vol] 16.9 10*3/uL High 3.5-11.3 [facility] Comment on above: Performed By: #### L IP, CMPX, PT, CDP, PTT ####[address] [place] [address] Lab Director: Mario Anne MD Auto Diff Performed NOT REPORTED Normal [facility] Comment on above: Performed By: #### L IP, CMPX, PT, CDP, PTT ####[facility] [place] [address] Lab Director: Mario Anne MD Platelets (Bld) [#/Vol] NOT REPORTED Normal [facility] Comment on above: Performed By: #### L IP, CMPX, PT, CDP, PTT ####[address] [place] [address] Lab Director: Mario Anne MD RBC morphology finding Nom (Bld) NOT REPORTED Normal [facility] Comment on above: Performed By: #### L IP, CMPX, PT, CDP, PTT ####[address] [place] [address] Lab Director: Mario Anne MD WBC Morphology NOT REPORTED Normal [facility] Comment on above: Performed By: #### L IP, CMPX, PT, CDP, PTT ####[address] [place] [address] lab Director: Mario Anne MD CT ABDOMEN PELVIS WO CONTRAS Ton 11-28-2018 CT ABDOMEN PELVIS WO CONTRAST EXAMINATION: CT OF THE ABDOMEN AND PELVIS WITHOUT CONTRAST 11/28/2018 8:25 pm TECHNIQUE: CT of the abdomen and pelvis was performed without the administration of intravenous contrast. Multiplanar reformatted images are provided for review. Dose modulation, iterative reconstruction, and/or weight based adjustment of the mA/kV was utilized to reduce the radiation dose to as low as reasonably achievable. COMPARISON: None. HISTORY: ORDERING SYSTEM PROVIDED HISTORY: Endometritis vs diverticulitis vs pyelonephritis. Sepsis FINDINGS: Lower Chest: Lung bases are clear without pulmonary nodules, masses, effusions, or foci of airspace disease. The base of the heart is normal in size without pericardial fluid collection. Organs: The liver is enlarged measuring 23 cm in greatest dimension. No focal hepatic mass lesions. Gallbladder, pancreas, and spleen are unremarkable. GI/Bowel: Bowel is without evidence for obstruction or inflammation. No free intraperitoneal air or fluid noted. Small bowel loops are normal in caliber. No definite hiatal hernia. Normal appendix. Pelvis: No evidence for free fluid. Peritoneum/Retroperito neum: The adrenal glands are normal in size and configuration bilaterally. Kidneys perfuse and excrete in a symmetric fashion and ureters are not obstructed. There is an exophytic lesion arising from the interpolar region of the right kidney posteriorly measuring 2.5 x 2.1 cm. This finding is technically indeterminate and further evaluation with renal ultrasound recommended. Urinary bladder is unremarkable. Bones/Soft Tissues: Osseous structures are intact without evidence for acute fracture or dislocation. No definite lytic or blastic lesions. Overlying soft tissues are unremarkable. Vasculature: The abdominal aorta is normal in caliber. No discrete and aneurysm or dissection. No lymphadenopathy within the abdomen or pelvis. IMPRESSION: No evidence for acute intra-abdominal or intrapelvic pathology. No bowel obstruction or inflammation. No free intraperitoneal air or fluid. No evidence for urinary obstruction. Normal appendix. 2.5 cm exophytic lesion arising from the interpolar region of the right kidney, indeterminate. Further evaluation with renal ultrasound is recommended on a nonemergent/outpatient basis. Interpreted by: Graeme Stewart MD Signed by: Graeme Stewart MD 11/28/18 Final result Normal [facility] EXAMINATION: [facility] OF [facility] ABDOMEN AND PELVIS WITHOUT CONTRAST 11/28/2018 8:25 pm TECHNIQUE: CT of the abdomen and pelvis was performed without the administration of intravenous contrast. Multiplanar reformatted images are provided for review. Dose modulation, iterative reconstruction, and/or weight based adjustment of the mA/kV was utilized to reduce the radiation dose to as low as reasonably achievable. COMPARISON: None. HISTORY: ORDERING SYSTEM PROVIDED HISTORY: Endometritis vs diverticulitis vs pyelonephritis. Sepsis FINDINGS: Lower Chest: Lung bases are clear without pulmonary nodules, masses, effusions, or foci of airspace disease. The base of the heart is normal in size without pericardial fluid collection. Organs: The liver is enlarged measuring 23 cm in greatest dimension. No focal hepatic mass lesions. Gallbladder, pancreas, and spleen are unremarkable. GI/Bowel: Bowel is without evidence for obstruction or inflammation. No free intraperitoneal air or fluid noted. Small bowel loops are normal in caliber. No definite hiatal hernia. Normal appendix. Pelvis: No evidence for free fluid. Peritoneum/Retroperito neum: The adrenal glands are normal in size and configuration bilaterally. Kidneys perfuse and excrete in a symmetric fashion and ureters are not obstructed. There is an exophytic lesion arising from the interpolar region of the right kidney posteriorly measuring 2.5 x 2.1 cm. This finding is technically indeterminate and further evaluation with renal ultrasound recommended. Urinary bladder is unremarkable. Bones/Soft Tissues: Osseous structures are intact without evidence for acute fracture or dislocation. No definite lytic or blastic lesions. Overlying soft tissues are unremarkable. Vasculature: The abdominal aorta is normal in caliber. No discrete and aneurysm or dissection. No lymphadenopathy within the abdomen or pelvis. [place], [place] No evidence for acut e intra-abdominal or intrapelvic pathology. No bowel obstruction or inflammation. No free intraperitoneal air or fluid. No evidence for urinary obstruction. Normal appendix. 2.5 cm exophytic lesion arising from the interpolar region of the right kidney, indeterminate. Further evaluation with renal ultrasound is recommended on a nonemergent/outpatient basis. [place], [place], M[facility] Incoming Radiant Results From [employer] - 11/28/2018 8:59 PM EDT EXAMINATION: CT OF THE ABDOMEN AND PELVIS WITHOUT CONTRAST 11/28/2018 8:25 pm TECHNIQUE: CT of the abdomen and pelvis was performed without the administration of intravenous contrast. Multiplanar reformatted images are provided for review. Dose modulation, iterative reconstruction, and/or weight based adjustment of the mA/kV was utilized to reduce the radiation dose to as low as reasonably achievable. COMPARISON: None. HISTORY: ORDERING SYSTEM PROVIDED HISTORY: Endometritis vs diverticulitis vs pyelonephritis. Sepsis FINDINGS: Lower Chest: Lung bases are clear without pulmonary nodules, masses, effusions, or foci of airspace disease. The base of the heart is normal in size without pericardial fluid collection. Organs: The liver is enlarged measuring 23 cm in greatest dimension. No focal hepatic mass lesions. Gallbladder, pancreas, and spleen are unremarkable. GI/Bowel: Bowel is without evidence for obstruction or inflammation. No free intraperitoneal air or fluid noted. Small bowel loops are normal in caliber. No definite hiatal hernia. Normal appendix. Pelvis: No evidence for free fluid. Peritoneum/Retroperito neum: The adrenal glands are normal in size and configuration bilaterally. Kidneys perfuse and excrete in a symmetric fashion and ureters are not obstructed. There is an exophytic lesion arising from the interpolar region of the right kidney posteriorly measuring 2.5 x 2.1 cm. This finding is technically indeterminate and further evaluation with renal ultrasound recommended. Urinary bladder is unremarkable. Bones/Soft Tissues: Osseous structures are intact without evidence for acute fracture or dislocation. No definite lytic or blastic lesions. Overlying soft tissues are unremarkable. Vasculature: The abdominal aorta is normal in caliber. No discrete and aneurysm or dissection. No lymphadenopathy within the abdomen or pelvis. IMPRESSION: No evidence for acute intra-abdominal or intrapelvic pathology. No bowel obstruction or inflammation. No free intraperitoneal air or fluid. No evidence for urinary obstruction. Normal appendix. 2.5 cm exophytic lesion arising from the interpolar region of the right kidney, indeterminate. Further evaluation with renal ultrasound is recommended on a nonemergent/outpatient basis. [facility] [place] Comp Metabolic Pr/rfx MGon 0 11-28-2018 AST [Catalytic activity/Vol] 23 U/L Normal <32 [facility] Comment on above: Performed By: #### L IP, CMPX, PT, CDP, PTT ####[facility] [place] [address] lab Director: Mario Anne MD (cont.) Normal [facility] Comment on above: Result Comment: Aver age GFR for 20-29 years old: 116 mL/min/1.73sq m Chronic Kidney Disease: <60 mL/min/1.73sq m Kidney failure: <15 mL/min/1.73sq m eGFR calculated using average adult body mass. Additional eGFR calculator available at: http://www.Capptain.Attender/multiple_crcl_2012.htm Performed By: #### L IP, CMPX, PT, CDP, PTT ####[facility] [place] [address] lab Director: Mario Anne MD Albumin [Mass/Vol] 3.7 g/dL Normal 3.5-5.2 [facility] Comment on above: Performed By: #### L IP, CMPX, PT, CDP, PTT ####[facility] [place] [address] lab Director: Mario Anne MD Albumin/Globulin [Mass ratio] 1.2 {ratio} Normal 1.0-2.5 [facility] Comment on above: Performed By: #### L IP, CMPX, PT, CDP, PTT ####[address] [place] [address] lab Director: Mario Anne MD Alkaline Phos 47 U/L Normal 35-104 [facility] Comment on above: Performed By: #### L IP, CMPX, PT, CDP, PTT ####[address] [place] [address] lab Director: Mario Anne MD ALT [Catalytic activity/Vol] 18 U/L Normal 5-33 [facility] Comment on above: Performed By: #### L IP, CMPX, PT, CDP, PTT ####[address] [place] [address] lab Director: Mario Anne MD Anion gap [Moles/Vol] 16 mmol/L Normal 9-17 [facility] Comment on above: Performed By: #### L IP, CMPX, PT, CDP, PTT ####[address] [place] [address] lab Director: Mario Anne MD Bilirubin Ql (U) 0.33 mg/dL Normal 0.3-1.2 [facility] Comment on above: Performed By: #### L IP, CMPX, PT, CDP, PTT ####[address] [place] [address] lab Director: Mario Anne MD BUN/CRE Ratio 10 Normal 9-20 [facility] Comment on above: Performed By: #### L IP, CMPX, PT, CDP, PTT ####[address] [place] [address] lab Director: Mario Anne MD Calcium [Mass/Vol] 9.1 mg/dL Normal 8.6-10.4 [facility] Comment on above: Performed By: #### L IP, CMPX, PT, CDP, PTT ####[address] , [place] [id number] lab Director: Mario Anne MD Chloride [Moles/Vol] 102 mmol/L Normal 98-107 [facility] Comment on above: Performed By: #### L IP, CMPX, PT, CDP, PTT ####[address] , [place] [id number] lab Director: Mario Anne MD CO2 [Moles/Vol] 20 mmol/L Normal 20-31 [facility] Comment on above: Performed By: #### L IP, CMPX, PT, CDP, PTT ####[address] , [place] [id number] lab Director: Mario Anne MD Creatinine [Mass/Vol] 0.81 mg/dL Normal 0.50-0.90 [facility] Comment on above: Performed By: #### L IP, CMPX, PT, CDP, PTT ####[address] , [place] [id number] lab Director: Mario Anne MD GFR, Amer >60 Normal >60 [facility] Comment on above: Performed By: #### L IP, CMPX, PT, CDP, PTT ####[address] , [place] [id number] lab Director: Mario Anne MD GFR,non Amer >60 Normal >60 [facility] Comment on above: Performed By: #### L IP, CMPX, PT, CDP, PTT ####[address] [place] [address] lab Director: Mario Anne MD Glucose [Mass/Vol] 93 mg/dL Normal 70-99 [facility] Comment on above: Performed By: #### L IP, CMPX, PT, CDP, PTT ####[address] [place] [address] lab Director: Mario Anne MD Potassium [Moles/Vol] 3.8 mmol/L Normal 3.7-5.3 [facility] Comment on above: Performed By: #### L IP, CMPX, PT, CDP, PTT ####[address] [place] [address] lab Director: Mario Anne MD Protein [Mass/Vol] 6.9 g/dL Normal 6.4-8.3 [facility] Comment on above: Performed By: #### L IP, CMPX, PT, CDP, PTT ####[address] [place] [address] lab Director: Mario Anne MD Sodium [Moles/Vol] 138 mmol/L Normal 135-144 [facility] Comment on above: Performed By: #### L IP, CMPX, PT, CDP, PTT ####[address] [place] [address] lab Director: Mario Anne MD Staging: Normal [facility] Comment on above: Result Comment: Stag e 1: Some kidney damage normal GFR Stage 2: Mild kidney damage GFR 60-89 Stage 3: Moderate kidney damage GFR 30-59 Stage 4: Severe kidney damage GFR 15-29 Stage 5: Severe kidney damage GFR <15 ESRD - chronic treatment by dialysis or transplant Performed By: #### L IP, CMPX, PT, CDP, PTT ####[address] [place] [address] lab Director: Mario Anne MD Urea nitrogen [Mass/Vol] 8 mg/dL Normal 6-20 [facility] Comment on above: Performed By: #### L IP, CMPX, PT, CDP, PTT ####[address] [place] [address] lab Director: Mario Anne MD Comprehensive Metabolic Pane l w/ Reflex to MGon 11-28-2018 Albumin [Mass/Vol] 3.7 g/dL 3.5 - 5.2 g/dL [place] Albumin/Globulin [Mass ratio] 1.2 {ratio} [place] ALP [Catalytic activity/Vol] 47 U/L 35 - 104 U/L [place] ALT [Catalytic activity/Vol] 18 U/L 5 - 33 U/L [place] Anion gap [Moles/Vol] 16 mmol/L 9 - 17 mmol/L [place] AST [Catalytic activity/Vol] 23 U/L <32 [place] Bilirubin Ql (U) 0.33 mg/dL 0.3 - 1.2 mg/dL [place] Bun/Cre Ratio 10 [place] Calcium [Mass/Vol] 9.1 mg/dL 8.6 - 10. 4 mg/dL [place] Chloride [Moles/Vol] 102 mmol/L 98 - 10 7 mmol/L [place] CO2 [Moles/Vol] 20 mmol/L 20 - 31 mmol/L [place] Creatinine [Mass/Vol] 0.81 mg/dL 0.5 - 0.9 mg/dL [place] GFR >60 >60 mL/min [place], [place] GFR Non- >60 >60 mL/min [place] Glucose [Mass/Vol] 93 mg/dL 70 - 99 mg/dL [place] Potassium [Moles/Vol] 3.8 mmol/L 3.7 - 5.3 mmol/L [place] Protein [Mass/Vol] 6.9 g/dL 6.4 - 8.3 g/dL [place] Sodium [Moles/Vol] 138 mmol/L 135 - 144 mmol/L [place] Urea nitrogen [Mass/Vol] 8 mg/dL 6 - 20 mg/dL [place] Herpes Type I/II, IgGon 11-19 Herpes Type I, IgG 1.22 High <0.91 [facility] Comment on above: Result Comment: Reference Range: <=0.90 Negative 0.91-1.09 Equivocal >=1.10 Positive Performed By: #### C BC #### [facility] [address] [place], [place] [id number] [employer]er: Mario Anne MD Herpes Type II, IgG 0.56 Normal <0.91 [facility] Comment on above: Result Comment: Reference Range: <=0.90 Negative 0.91-1.09 Equivocal >=1.10 Positive Performed By: #### C BC #### [facility] [address] [place], [place] [id number] [employer]er: Mario Anne MD Herpes Type I/II,IgMon 11-28 Herpes Type I/II,IgM 1.09 High <0.91 [facility] Comment on above: Result Comment: Reference Range: <=0.90 Negative 0.91-1.09 Equivocal >=1.10 Positive If positive, an IgM result indicates a current or recent infection. This test does not differentiate type I from type II. No current reference test is available for this. If IgG tests are ordered and are negative, consider retesting in 2 to 3 weeks. Performed By: #### C BC #### [facility] [address] [place], [place] [id number] [employer]er: Mario Anne MD Lactate, Sepsison 11-28-2018 Lactic Acid, Sepsis 1.8 mmol/L Normal 0.5-1.9 [facility] Comment on above: Performed By: #### T YS #### [facility] [address] [place], [place] [id number] [employer]er: Mario Anne MD Lactic Acid,Sep Wbld NOT REPORTED Normal 0.5-1.9 [facility] Comment on above: Performed By: #### T YS #### [facility] [address] [place], [place] [id number] [employer]er: Mario Anne MD Lactic Acid, Sepsis 1.8 mmol/L 0.5 - 1. 9 mmol/L [place] Lactic Acid, Sepsis, Whole Blood NOT REPORTED 0.5 - 1.9 mmol/L [place] Lipaseon 11-28-2018 Lipase [Catalytic activity/Vol] 21 U/L Normal 13-60 [facility] Comment on above: Performed By: #### L IP, CMPX, PT, CDP, PTT ####[facility] [place] [address] Lab Director: Mario Anne MD Lipase [Catalytic activity/Vol] 21 U/L 13 - 60 U/L [place] Lupus Anticoagulanton 2018 Antiphospholipid IgA 0.8 APU Normal <12 [facility] Comment on above: Result Comment: Reference Range: 12 - 15 Equivocal >15 Positive Performed By: #### C BC #### [facility] [address] [place] [address] [employer] Installer: Mario Anne MD Antiphospholipid IgG 3.0 GPU Normal <20 [facility] Comment on above: Result Comment: Reference Range: 20.0 - 29.9 Low Positive 30.0 - 79.9 Moderate Positive >79.9 High Positive Performed By: #### C BC #### [facility] [address] [place] [address] [employer] Maker [employer] Installer: Mario Anne MD Antiphospholipid IgM 6.6 MPU Normal <20 [facility] Comment on above: Result Comment: Reference Range: 20.0 - 29.9 Low Positive 30.0 - 79.9 Moderate Positive >79.9 High Positive Performed By: #### C BC #### [facility] [address] [place] [address] [employer] Maker [employer] Installer: Mario Anne MD Metabolic Panelon 11-28-2018 GFR/1.73 sq M predicted among non-blacks MDRD (S/P/Bld) [Vol rate/Area] [place], [place] Comment on above: Average GFR for 20-2 9 years old: 116 mL/min/1.73sq m Chronic Kidney Disease: <60 mL/min/1.73sq m Kidney failure: <15 mL/min/1.73sq m eGFR calculated using average adult body mass. Additional eGFR calculator available at: http://www.Duriana/multiple_crcl_2012.htm Stage 1: Some kidney damage normal GFR Stage 2: Mild kidney damage GFR 60-89 Stage 3: Moderate kidney damage GFR 30-59 Stage 4: Severe kidney damage GFR 15-29 Stage 5: Severe kidney damage GFR <15 ESRD - chronic treatment by dialysis or transplant Microscopic Urinalysison Amorphous, UA NOT REPORTED None [facility], [place] Bacteria, UA NOT REPORTED None [facility] Casts UA NOT REPORTED /LPF [place], [place] Crystals UA NOT REPORTED None /HPF [place] Epithelial Cells UA 2 TO 5 [place], [place] Mucus, UA NOT REPORTED None [place], [place] Other Observations UA NOT REPORTED NOT REQ. M [place], [place] RBC (U) [#/Vol] 5 TO 10 [place], [place] Renal Epithelial, Urine NOT REPORTED 0 /HPF [place] Trichomonas, UA NOT REPORTED None [facility] [place] WBC, UA 10 TO 20 [place] Yeast, UA NOT REPORTED None [place], [place] - [place] Otheron 11-28-2018 Interpretation and review of laboratory results Abnormal [place] PTon 11-28-2018 INR Coag (PPP) [Relative time] 1.3 {INR} High 0.9-1.2 [facility] Comment on above: Performed By: #### L IP, CMPX, PT, CDP, PTT ####[facility] [place] [address] lab Director: Mario Anne MD PT Coag (PPP) [Time] 13.4 s High 9.7-12.2 [facility] Comment on above: Performed By: #### L IP, CMPX, PT, CDP, PTT ####[facility] , [place] [id number] Lab Director: Mario Anne MD Parvovirus B19 Panelon 11-28 Parvovirus IgG B19 6.29 IV High <=0.89 [facility] Comment on above: Result Comment: (NOT E) INTERPRETIVE INFORMATION: Parvovirus B19 Antibody, IgG 0.89 IV or less .......... Negative - No significant level of detectable Parvovirus B19 IgG antibody. 0.90 - 1.10 IV ........... Equivocal - Repeat testing in 10-14 days may be helpful. 1.11 IV or greater ....... Positive - IgG antibody to Parvovirus B19 detected which may indicate a current or past infection. The best evidence for current infection is a significant change on two appropriately timed specimens, where both tests are done in the same laboratory at the same time. Performed By: #### C BC #### [facility] [address] [place] [address] [employer] Installer: Mario Anne MD Parvovirus IgM B19 0.15 IV Normal <=0.89 [facility] Comment on above: Result Comment: (NOT E) INTERPRETIVE INFORMATION: Parvovirus B19 Antibody, IgM 0.89 IV or less .......... Negative - No significant level of detectable Parvovirus B19 IgM antibody. 0.90 - 1.10 IV ........... Equivocal - Repeat testing in 10-14 days may be helpful. 1.11 IV or greater ........ Positive - IgM antibody to Parvovirus B19 detected which may indicate a current or recent infection. However, low levels of IgM antibodies may occasionally persist for more than 12 months post-infection. The best evidence for current infection is a significant change on two appropriately timed specimens, where both tests are done in the same laboratory at the same time. Appearance of an IgM antibody response normally occurs 7 to 14 days after the onset of disease. Testing immediately post-exposure is of no value without a later convalescent specimen. A residual IgM response may be distinguished from early IgM response to infection by testing sera from patients three to four weeks later for changing levels of specific IgM antibodies. Performed by [facility], [address] [facility], [place] [address] [email or web address], Fernando Valencia MD, Lab. Director Performed By: #### C BC #### [facility] [address] [place], [place] [id number] [employer] Installer: Mario Anne MD Protein C Antigenicon 2018 Protein [Mass/Vol] 83 % Normal 63-153 [facility] Comment on above: Result Comment: (NOT E) INTERPRETIVE INFORMATION: Protein C, Total Antigen Patients on warfarin may have decreased protein C values. Patients should be off warfarin therapy for two weeks for accurate measurement of protein C. Access complete set of age- and/or gender-specific reference intervals for this test in the [facility] Test Directory ([employer]). Performed by [facility], [address] [facility], [place] [id number] [email or web address], Fernando Valencia MD, Lab. Director Performed By: #### C BC #### [facility] [address] [place] [address] [employer] Maker [employer] Installer: Mario Anne MD Protein S, Antigenicon 11-28 Protein [Mass/Vol] 71 % Normal 63-126 [facility] Comment on above: Result Comment: (NOT E) INTERPRETIVE INFORMATION: Protein S, Total Antigen Patients on warfarin may have decreased protein S values. Patients should be off warfarin therapy for two weeks for accurate measurement of protein S. Access complete set of age- and/or gender-specific reference intervals for this test in the [facility] Test Directory ([employer]). Performed by [facility], [address] [facility], [place] [id number] [email or web address], Fernando Valencia MD, Lab. Director Performed By: #### C BC #### [facility] [address] [place] [address] [employer] Maker [employer] Installer: Mario Anne MD Protime-INRon 11-28-2018 INR Coag (PPP) [Relative time] 1.3 {INR} [place], [place] PT Coag (PPP) [Time] 13.4 s High [place], [place] Rubella IgM, Abon 11-28-2018 Rubella IgM, Ab <10.0 Normal <=19.9 [facility] Comment on above: Result Comment: (NOT E) INTERPRETIVE INFORMATION: Rubella Ab, IgM 19.9 AU/mL or less........ Not Detected 20.0-24.9 AU/mL........... Indeterminate-Repeat testing in 10-14 days may be helpful. 25.0 AU/mL or greater..... Detected-IgM antibody to Rubella detected which may indicate a current or recent infection or immunization. Testing immediately post-exposure is of no value without a later convalescent specimen. While the presence of IgM antibodies suggest current or recent infection, low levels of IgM antibodies may occasionally persist for more than 12 months post-infection or immunization. The magnitude of the measured result is not indicative of the amount of antibody present. Performed by [facility], [address] [place] [id number] [email or web address], Fernando Valencia MD, Lab. Director Performed By: #### C #### [facility] [address] [place] [address] [place] [address] [employer] Installer: Mario Anne MD Urinalysison 11-28-2018 Bilirubin Urine Negative NEGATIVE [place], [place] Color, UA YELLOW YELLOW [place], [place] Glucose, Ur Negative NEGATIVE [place] Interpretation and review of laboratory results Abnormal [place] Ketones Ql (U) Negative NEGATIVE [place], [place] Leukocyte esterase Test strip Ql (U) SMALL Abnormal NEGATIVE [place], [place] Nitrite, Urine Negative NEGATIVE [facility], [place] pH, UA 6.5 [place], [place] Protein (U) [Mass/Vol] TRACE Abnormal NEGATIVE [place] Specific [place], UA 1.020 [place], [place] Turbidity UA CLEAR CLEAR [place] Urinalysis Comments NOT REPORTED [facility], [place] Urine Hgb 3+ Abnormal NEGATIVE [facility], [place] Urobilinogen, Urine Normal Normal [place], [place] Urinalysis, Routineon 2018 Acetoacetic Acid,Ur Negative Normal NEG [facility] Comment on above: Performed By: #### T YS #### [facility] [address] [place], [place] [id number] [employer] Installer: Mario Anne MD Bilirubin, SemiQt,Ur Negative Normal NEG [facility] Comment on above: Performed By: #### T YS #### [facility] [address] [place] [address] [employer] Maker [employer] Installer: Mario Anne MD Color (U) YELLOW Normal YEL [facility] Comment on above: Performed By: #### T YS #### [facility] [address] [place] [address] [employer] Maker And Installer: Mario Anne MD Glucose Ql (U) Negative Normal [facility] Comment on above: Performed By: #### T YS #### [facility] [address] [place] [address] [employer] Maker [employer] Installer: Mario Anne MD Hemoglobin, Ur 3+ Abnormal NEG [facility] Comment on above: Performed By: #### T YS #### [facility] [address] [place], [place] [id number] [employer] Installer: Mario Anne MD Leukocyte esterase Test strip Ql (U) SMALL Abnormal NEG [facility] Comment on above: Performed By: #### T YS #### [facility] [address] [place] [address] [employer] Maker And Installer: Mario Anne MD Nitrite,Ur Negative Normal [facility] Comment on above: Performed By: #### T YS #### [facility] [address] [place] [address] [employer] Maker [employer] Installer: Mario Anne MD pH (U) 6.5 [pH] Normal 5.0-9.0 [facility] Comment on above: Performed By: #### T YS #### [facility] [address] [place] [address] [employer] Maker [employer] Installer: Mario Anne MD Protein Ql (U) TRACE Abnormal NEG [facility] Comment on above: Performed By: #### T YS #### [facility] [address] [place], [place] [id number] [employer] Maker [employer] Installer: Mario Anne MD Specific gravity (U) [Rel density] 1.020 Normal 1.010-1.020 [facility] Comment on above: Performed By: #### T YS #### [facility] [address] [place], [place] [id number] [employer] Maker [employer] Installer: Mario Anne MD Turbidity CLEAR Normal CLEAR [facility] Comment on above: Performed By: #### T YS #### [facility] [address] [place], [place] [address] [employer] Maker [employer] Installer: Mario Anne MD Urobilinogen,Ur Normal Normal NORM [facility] Comment on above: Performed By: #### T YS #### [facility] [address] [place], [place] [id number] [employer] Installer: Mario Anne MD Comment NOT REPORTED Normal [facility] Comment on above: Performed By: #### T YS #### [facility] [address] [place], [place] [id number] [employer] Installer: Mario Anne MD Urinalysis,Microon 9 ----- Normal [facility] Comment on above: Performed By: #### T YS #### [facility] [address] [place], [place] [id number] [employer] Maker [employer] Installer: Mario Anne MD Epithelial cells LM.HPF (Urine sed) [#/Area] 2 TO 5 Normal 0-25 [facility] Comment on above: Performed By: #### T YS #### [facility] [address] [place] [address] [employer] Maker [employer] Installer: Mario Anne MD RBC (U) [#/Vol] 5 TO 10 Normal 0-2 [facility] Comment on above: Performed By: #### T YS #### [facility] [address] [place] [address] [employer]er: Mario Anne MD WBC (U) [#/Vol] 10 TO 20 Normal 0-5 [facility] [facility] Comment on above: Performed By: #### T YS #### [facility] [address] [place] [address] [employer] Maker [employer] Installer: Mario Anne MD Amorphous sediment LM Ql (Urine sed) NOT REPORTED Normal [facility] Comment on above: Performed By: #### T YS #### [facility] [address] [place] [address] Awning Maker And Installer: Mario Anne MD Bacteria LM.HPF (Urine sed) [#/Area] NOT REPORTED Normal [facility] Comment on above: Performed By: #### T YS #### [facility] [address] [place] [address] [employer] Maker [employer] Installer: Mario Anne MD Casts LM.LPF (Urine sed) [#/Area] NOT REPORTED Normal [facility] Comment on above: Performed By: #### T YS #### [facility] [address] [place] [address] [employer]ning Maker [employer] Installer: Mario Anne MD Crystals LM Nom (Urine sed) NOT REPORTED Normal [facility] Comment on above: Performed By: #### T YS #### [facility] [address] [place] [address] [employer] Maker [employer] Installer: Mario Anne MD Epithelial, Renal NOT REPORTED Normal 0 [facility] Comment on above: Performed By: #### T YS #### [facility] [address] [place], [place] [id number] [employer] Maker [employer] Installer: Mario Anne MD Mucus Strands NOT REPORTED Normal [facility] Comment on above: Performed By: #### T YS #### [facility] [address] [place], [place] [address] [employer] Maker [employer] Installer: Mario Anne MD Other Observations NOT REPORTED Normal [facility] Comment on above: Performed By: #### T YS #### [facility] [address] [place], [place] [id number] Aw[employer] Maker [employer] Installer: Mario Anne MD Trichomonas NOT REPORTED Normal [facility] Comment on above: Performed By: #### T YS #### [facility] [address] [place], [place] [id number] [employer] Installer: Mario Anne MD Yeast LM Ql (Urine sed) NOT REPORTED Normal [facility] Comment on above: Performed By: #### T YS #### [facility] [address] [place], [place] [id number] [employer] Maker [employer] Installer: Mario Anne MD Venous Blood Gaseson 019 HCO3 (Bld) [Moles/Vol] 20.5 mmol/L Low 24.0-30.0 [facility] Comment on above: Performed By: #### V BG ####[facility] , [place] 2630983 Lab Director: Mario Anne MD Negative Base Excess 2.9 mmol/L High 0.0-2.0 [facility] Comment on above: Performed By: #### V BG ####[facility] [place], [place] 0267683 Lab Director: Mario Anne MD Oxygen (Bld) [Partial pressure] 22.2 mm[Hg] Low 30.0-50.0 [facility] Comment on above: Performed By: #### V BG ####[address] [place] [address] Lab Director: Mario Anne MD Oxygen saturation in Blood 40.2 % Low 60.0-85.0 [facility] Comment on above: Performed By: #### V BG ####[address] , [place] 1373883 Lab Director: Mario Anne MD pCO2 31.9 Low 39-55 [facility] Comment on above: Performed By: #### V BG ####[address] , [place] [id number] Lab Director: Mario Anne MD pH (Bld) 7.425 [pH] High 7.32-7.42 [facility] Comment on above: Performed By: #### V BG ####[address] [place] [address] Lab Director: Mario Anne MD Marco Test NOT REPORTED Normal [facility] Comment on above: Performed By: #### V BG ####[address] [place] [address] Lab Director: Mario Anne MD Body Temp. NOT REPORTED Normal [facility] Comment on above: Performed By: #### V BG ####[address] [place] [address] Lab Director: Mario Anne MD Carboxy Hgb NOT REPORTED Normal 0-5 [facility] Comment on above: Performed By: #### V BG ####[address] [place] [address] Lab Director: Mario Anne MD FIO2 NOT REPORTED Normal [facility] Comment on above: Performed By: #### V BG ####[address] , [place] 649[address]83 Lab Director: Mario Anne MD Methemoglobin NOT REPORTED Normal 0.0-1.9 [facility] Comment on above: Performed By: #### V BG ####[address] [place] [address] Lab Director: Mario Anne MD Mode NOT REPORTED Normal [facility] Comment on above: Performed By: #### V BG ####[address] , [place] 8555783 Lab Director: Mario Anne MD Notification Time NOT REPORTED Normal [facility] Comment on above: Performed By: #### V BG ####[address] , [place] 984[address]83 Lab Director: Mario Anne MD Notification: NOT REPORTED Normal [facility] Comment on above: Performed By: #### V BG ####[address] , [facility]83 Lab Director: Mario Anne MD O2 Device/Flow/% NOT REPORTED Normal [facility] Comment on above: Performed By: #### V BG ####[address] , [place] 5182383 Lab Director: Mario Anne MD Oxyhemoglobin NOT REPORTED Normal 95.0-98.0 [facility] Comment on above: Performed By: #### V BG ####[address] , [place] 1018183 Lab Director: Mario Anne MD Pco2 Adj'd for Temp. NOT REPORTED Normal 39.0-55.0 [facility] Comment on above: Performed By: #### V BG ####[address] [place] [address] Lab Director: Mario Anne MD PEEP/CPAP NOT REPORTED Normal [facility] Comment on above: Performed By: #### V BG ####[address] [place] [address] Lab Director: Mario Anne MD pH Adjst'd for Temp. NOT REPORTED Normal 7.320-7.420 M [facility] Comment on above: Performed By: #### V BG ####[address] [place] [address] Lab Director: Mario Anne MD pO2 Adj'd for Temp. NOT REPORTED Normal 30.0-50.0 [facility] Comment on above: Performed By: #### V BG ####[address] [place] [address] Lab Director: Mario Anne MD Positive Base Excess NOT REPORTED Normal 0.0-2.0 [facility] Comment on above: Performed By: #### V BG ####[address] [place] [address] Lab Director: Mario Anne MD PSV NOT REPORTED Normal [facility] Comment on above: Performed By: #### V BG ####[address] [place] [address] Lab Director: Mario Anne MD Pt. Position NOT REPORTED Normal [facility] Comment on above: Performed By: #### V BG ####[address] [place] [address] Lab Director: Mario Anne MD Set Rate NOT REPORTED Normal [facility] Comment on above: Performed By: #### V BG ####[address] [place] [address] Lab Director: Mario Anne MD Site Drawn NOT REPORTED Normal [facility] Comment on above: Performed By: #### V BG ####[address] [place] [address] Lab Director: Mario Anne MD Text for Respiratory NOT REPORTED Normal [facility] Comment on above: Performed By: #### V BG ####[facility] [place] [address] Lab Director: Mario Anne MD Total Hb NOT REPORTED Normal 12.0-16.0 [facility] Comment on above: Performed By: #### V BG ####[facility] [place] [address] Lab Director: Mario Anne MD Total Rate NOT REPORTED Normal [facility] Comment on above: Performed By: #### V BG ####[facility] [place] [address] lab Director: Mario Anne MD VT NOT REPORTED Normal [facility] Comment on above: Performed By: #### V BG ####[facility] [place] [address] lab Director: Mario Anne MD XR CHEST PORTABLEon 11-29-19 XR CHEST PORTABLE EXAMINATION: ONE XRAY VIEW OF THE CHEST 11/28/2018 7:38 pm COMPARISON: None. HISTORY: ORDERING SYSTEM PROVIDED HISTORY: R/O PNA TECHNOLOGIST PROVIDED HISTORY: R/O PNA FINDINGS: Mild congestion, likely magnified by technique. No airspace consolidation, effusion, or pneumothorax. Borderline cardiomegaly. IMPRESSION: Cardiomegaly and congestion magnified by technique. No airspace consolidation. Interpreted by: Matt Mayer MD Signed by: Matt Mayer MD 11/28/18 Final result Normal [facility] Cardiomegaly and congestion magnified by technique. No airspace consolidation. [facility]- [place], [place], Mhpn Incoming Radiant Results From [employer] - 11/28/2018 8:56 PM EDT EXAMINATION: ONE XRAY VIEW OF THE CHEST 11/28/2018 7:38 pm COMPARISON: None. HISTORY: ORDERING SYSTEM PROVIDED HISTORY: R/O PNA TECHNOLOGIST PROVIDED HISTORY: R/O PNA FINDINGS: Mild congestion, likely magnified by technique. No airspace consolidation, effusion, or pneumothorax. Borderline cardiomegaly. IMPRESSION: Cardiomegaly and congestion magnified by technique. No airspace consolidation. [place], [place] EXAMINATION: ONE XRA Y VIEW OF THE CHEST 11/28/2018 7:38 pm COMPARISON: None. HISTORY: ORDERING SYSTEM PROVIDED HISTORY: R/O PNA TECHNOLOGIST PROVIDED HISTORY: R/O PNA FINDINGS: Mild congestion, likely magnified by technique. No airspace consolidation, effusion, or pneumothorax. Borderline cardiomegaly. [place], [place] CMV Ab,IgGon 11-27-2018 CMV Ab,IgG 0.1 Normal <0.9 [facility] Comment on above: Result Comment: Reference Range: <0.9 Non Reactive 0.9 to 1.0 Indeterminate >1.0 Reactive The absence of CMV antibodies suggests that the patient has not been exposed to the virus and is susceptible to primary infection. The presence of CMV IgG antibodies is indicative of previous exposure to the virus, but cannot distinguish between active or past infection. Patients suspected of having primary or active infection should be tested for the concurrent presence of CMV IgM antibodies and/or retested for seroconversion in 3 to 4 weeks. These results are not intended to replace virus isolation and should be interpreted within the context of clinical and other findings. Performed By: #### T OXOM, HSVG12, CMVM, FA2, MATIAS, TOXOG, HSVM12, CMVG, FA5 #### [facility] [employer] [address] [place] [id number] Aw[employer] Maker And Installer: Geo Mar MD #### CBC, FIB #### [address] [place] [address] Awning Maker And Installer: Mario Anne MD #### APROTS, APARVP, APROTC, ARUBGM #### [facility] [address] [place] [address] [employer] Maker And Installer: Fernando Valencia MD #### LUPPRO #### [address] [id number] Aw[employer] Maker [employer] Installer: Geo Mar MD [facility] [address] [place] [address] [place] [address] Awning Maker And Installer: Mario Anne MD CMV Ab,IgMon 11-27-2018 CMV Ab,IgM 0.4 Normal <0.9 [facility] Comment on above: Result Comment: Reference Range: <0.9 Non Reactive 0.9 to 1.0 Indeterminate >1.0 Reactive The absence of CMV antibodies suggests that the patient has not been exposed to the virus and is susceptible to primary infection. The presence of CMV IgM antibodies is indicative of recent exposure to the virus. These results are not intended to replace virus isolation and should be interpreted within the context of clinical and other findings. Performed By: #### C BC #### [facility] [address] [place] [address] [place] [address] [employer] Maker And Installer: Mario Anne MD CBCon 11-25-2018 Erythrocyte distribution width (RBC) [Ratio] 13.2 % Normal 11.8-14.4 [facility] Comment on above: Performed By: #### T OXOM, HSVG12, CMVM, FA2, MATIAS, TOXOG, HSVM12, CMVG, FA5 #### [address] [id number] [employer] Maker [employer] Installer: Geo Mar MD #### CBC, FIB #### [address] [place] [address] Awning Maker And Installer: Mario Anne MD #### APROTS, APARVP, APROTC, ARUBGM #### [facility] [address], [place] [id number] [employer] Maker [employer] Installer: Fernando Valencia MD #### LUPPRO #### [facility] [address] [place] [id number] [employer] Maker [employer] Installer: Geo Mar MD [address] [place] [address] Awning Maker And Installer: Mario Anne MD Hematocrit (Bld) [Volume fraction] 30.4 % Low 36.3-47.1 [facility] Comment on above: Performed By: #### T OXOM, HSVG12, CMVM, FA2, MATIAS, TOXOG, HSVM12, CMVG, FA5 #### [address] [address] [employer] Maker [employer] Installer: Geo Mar MD #### CBC, FIB #### [address] [place] [address] Awning Maker And Installer: Mario Anne MD #### APROTS, APARVP, APROTC, ARUBGM #### [facility] [address] [place] [address] Awning Maker And Installer: Fernando Valencia MD #### LUPPRO #### [address] [address] [employer] Maker And Installer: Geo Mar MD [address] [place] [id number] Awning Maker And Installer: Mario Anne MD Hemoglobin (Bld) [Mass/Vol] 9.7 g/dL Low 11.9-15.1 [facility] Comment on above: Performed By: #### T OXOM, HSVG12, CMVM, FA2, MATIAS, TOXOG, HSVM12, CMVG, FA5 #### [address] [address] Awning Maker And Installer: Geo Mar MD #### CBC, FIB #### [address] [place], [place] 6931783 Awning Maker [employer] Installer: Mario Anne MD #### APROTS, APARVP, APROTC, ARUBGM #### [facility] [address] [place] [address] Awning Maker And Installer: Fernando Valencia MD #### LUPPRO #### [address] [address] [employer] Maker And Installer: Geo Mar MD [address] [place], [place] 8502983 Awning Maker And Installer: Mario Anne MD MCH (RBC) [Entitic mass] 28.2 pg Normal 25.2-33.5 [facility] Comment on above: Performed By: #### T OXOM, HSVG12, CMVM, FA2, MATIAS, TOXOG, HSVM12, CMVG, FA5 #### [address] [address] Awning Maker And Installer: Geo Mar MD #### CBC, FIB #### [address] [place] [id number] Awning Maker And Installer: Mario Anne MD #### APROTS, APARVP, APROTC, ARUBGM #### [facility] [address] [place] [address] Awning Maker And Installer: Fernando Valencia MD #### LUPPRO #### [address] [address] Awning Maker And Installer: Geo Mar MD [address] [place] [id number] Awning Maker And Installer: Mario Anne MD MCHC (RBC) [Mass/Vol] 31.9 g/dL Normal 28.4-34.8 [facility] Comment on above: Performed By: #### T OXOM, HSVG12, CMVM, FA2, MATIAS, TOXOG, HSVM12, CMVG, FA5 #### [address] [address] Awning Maker And Installer: Geo Mar MD #### CBC, FIB #### [address] [place] [id number] Awning Maker And Installer: Mario Anne MD #### APROTS, APARVP, APROTC, ARUBGM #### [facility] [address] [place] [address] Awning Maker And Installer: Fernando Valencia MD #### LUPPRO #### [address] [address] Awning Maker And Installer: Geo Mar MD [facility] [address] [place] [address] [place], [place] [id number] Awning Maker And Installer: Mario Anne MD MCV (RBC) [Entitic vol] 88.4 fL Normal 82.6-102.9 [facility] Comment on above: Performed By: #### T OXOM, HSVG12, CMVM, FA2, MATIAS, TOXOG, HSVM12, CMVG, FA5 #### [address] [id number] Awning Maker And Installer: Geo Mar MD #### CBC, FIB #### [address] [place] [address] Awning Maker And Installer: Mario Anne MD #### APROTS, APARVP, APROTC, ARUBGM #### [facility] [address] [place], [place] [id number] Awning Maker And Installer: Fernando Valencia MD #### LUPPRO #### [address] [address] Awning Maker And Installer: Geo Mar MD [address] [place] [id number] Awning Maker And Installer: Mario Anne MD NRBC Automated 0.0 per 100 WBC Normal 0.0 [facility] Comment on above: Performed By: #### T OXOM, HSVG12, CMVM, FA2, MATIAS, TOXOG, HSVM12, CMVG, FA5 #### [address] [address] Awning Maker And Installer: Geo Mar MD #### CBC, FIB #### [address] [place] [address] Awning Maker And Installer: Mario Anne MD #### APROTS, APARVP, APROTC, ARUBGM #### [facility] [address] [place] [address] Awning Maker And Installer: Fernando Valencia MD #### LUPPRO #### [address] [address] Awning Maker And Installer: Geo Mar MD [address] [place] [phone] Awning Maker And Installer: Mario Anne MD Platelet mean volume (Bld) [Entitic vol] 10.4 fL Normal 8.1-13.5 [facility] Comment on above: Performed By: #### T OXOM, HSVG12, CMVM, FA2, MATIAS, TOXOG, HSVM12, CMVG, FA5 #### [address] [address] Awning Maker And Installer: Geo Mar MD #### CBC, FIB #### [address] [place] [phone] Awning Maker And Installer: Mario Anne MD #### APROTS, APARVP, APROTC, ARUBGM #### [facility] [address], [place] [id number] Awning Maker And Installer: Fernando Valencia MD #### LUPPRO #### [address] [address] Awning Maker And Installer: Geo Mar MD [address] [place] [address] Awning Maker And Installer: Mario Anne MD Platelets (Bld) [#/Vol] 247 10*3/uL Normal 138-453 [facility] Comment on above: Performed By: #### T OXOM, HSVG12, CMVM, FA2, MATIAS, TOXOG, HSVM12, CMVG, FA5 #### [address] [address] Awning Maker And Installer: Geo Mar MD #### CBC, FIB #### [address] [place] [id number] Awning Maker And Installer: Mario Anne MD #### APROTS, APARVP, APROTC, ARUBGM #### [facility] [address], [place] [id number] Awning Maker And Installer: Fernando Valencia MD #### LUPPRO #### [address] [address] Awning Maker And Installer: Geo Mar MD [address] [place] [address] Awning Maker And Installer: Mario Anne MD RBC (Bld) [#/Vol] 3.44 10*6/uL Low 3.95-5.11 [facility] Comment on above: Performed By: #### T OXOM, HSVG12, CMVM, FA2, MATIAS, TOXOG, HSVM12, CMVG, FA5 #### [address] [address] Awning Maker And Installer: Geo Mar MD #### CBC, FIB #### [address] [place] [id number] Awning Maker And Installer: Mario Anne MD #### APROTS, APARVP, APROTC, ARUBGM #### [facility] [address], [place] [id number] Awning Maker And Installer: Fernando Valencia MD #### LUPPRO #### [address] [address] Awning Maker And Installer: Geo Mar MD [address] [place] [id number] Awning Maker And Installer: Mario Anne MD WBC (Bld) [#/Vol] 13.1 10*3/uL High 3.5-11.3 [facility] Comment on above: Performed By: #### T OXOM, HSVG12, CMVM, FA2, MATIAS, TOXOG, HSVM12, CMVG, FA5 #### [place] [address] [place], [place] [phone] Awning Maker And Installer: Geo Mar MD #### CBC, FIB #### [facility] [address] [place], [place] 19[address]83 Awning Maker [employer] Installer: Mario Anne MD #### APROTS, APARVP, APROTC, ARUBGM #### [facility] [address] [place] [address] Awning Maker And Installer: Fernando Valencia MD #### LUPPRO #### [facility] [address] [place] [address] Awning Maker And Installer: Geo Mar MD [address] [place] [address] Awning Maker And Installer: Mario Anne MD Drug Scr, Abuse, Uron 2018 Amphetamine(s),Ur Negative Normal NEG [facility] Comment on above: Performed By: #### D AU ####[address] [place] [address] Lab Director: Mario Anne MD Barbiturate(s),Ur Negative Normal [facility] Comment on above: Performed By: #### D AU ####[address] [place] [address] Lab Director: Mario Anne MD Base excess Calc (Bld) [Moles/Vol] Negative Normal [facility] Comment on above: Performed By: #### D AU ####[address] , [place] 1247383 Lab Director: Mario Anne MD Benzodiazepine(s) Negative Normal [facility] Comment on above: Performed By: #### D AU ####[address] , [place] 1276183 Lab Director: Mario Anne MD Buprenorphrine, Ur Negative Normal [facility] Comment on above: Performed By: #### D AU ####[address] [place] [address] Lab Director: Mario Anne MD Cannabinoid(s),Ur Negative Normal [facility] Comment on above: Performed By: #### D AU ####[address] [place] [address] Lab Director: Mario Anne MD Methadone Ql (U) Negative Normal NEG [facility] Comment on above: Performed By: #### D AU ####[address] [place] [id number] Lab Director: Mario Anne MD Methamphetamine, Ur Negative Normal NEG [facility] Comment on above: Performed By: #### D AU ####[address] , [place] [address] [facility] Director: Mario Anne MD Opiate(s), Ur Negative Normal NEG [facility] Comment on above: Performed By: #### D AU ####[address] [place] [id number] Lab Director: Mario Anne MD Oxycodone, Urine Negative Normal [facility] Comment on above: Performed By: #### D AU ####[address] , [facility]83 Lab Director: Mario Anne MD Phencyclidine, Ur Negative Normal NEG [facility] Comment on above: Performed By: #### D AU ####[address] [place] [id number] Lab Director: Mario Anne MD Propoxyphene,Urine Negative Normal [facility] Comment on above: Performed By: #### D AU ####[address] , [place] [id number] Lab Director: Mario Anne MD Tricyclic antidepressants Screen Ql (U) Negative Normal NEG [facility] Comment on above: Result Comment: Drug screen results are to be used for medical purposes only. All positive results are unconfirmed. Testing for employment or legal uses should be sent to a reference laboratory for confirmation. Performed By: #### D AU ####[facility] [place], [place] [address]83 [facility] Director: Mario Anne MD Interpretive Info NOT REPORTED Normal [facility] Comment on above: Performed By: #### D AU ####[address] [place] [address] [facility] Director: Mario Anne MD MDMA, Urine NOT REPORTED Normal NEG [facility] Comment on above: Performed By: #### D AU ####[address] [place], [place] 7445383 [facility] Director: Mario Anne MD Fibrinogenon 11-25-2018 Fibrinogen 465 mg/dL High 185-451 [facility] Comment on above: Performed By: #### T OXOM, HSVG12, CMVM, FA2, MATIAS, TOXOG, HSVM12, CMVG, FA5 #### [address] [id number] [employer] Maker [employer] Installer: Geo Mar MD #### CBC, FIB #### [address] [place], [place] [id number] [employer] Maker [employer] Installer: Mario Anne MD #### APROTS, APARVP, APROTC, ARUBGM #### [facility] [address] [place] [address] Awning Maker And Installer: Fernando Valencia MD #### LUPPRO #### [address] [id number] [employer] Maker [employer] Installer: Geo Mar MD [address] [place] [address] Awning Maker And Installer: Mario Anne MD Hgb/Hcton 11-25-2018 Hematocrit (Bld) [Volume fraction] 30.4 % Low 36.3-47.1 [facility] Comment on above: Performed By: #### H H ####[address] , [place] 1663183 Lab Director: Mario Anne MD Hemoglobin (Bld) [Mass/Vol] 9.8 g/dL Low 11.9-15.1 [facility] Comment on above: Performed By: #### H H ####[address] [place] [address] Lab Director: Mario Anne MD Lupus Anticoagulanton 2018 aPTT Coag (Bld) [Time] 27.1 s Normal 23.2-34.4 [facility] Comment on above: Performed By: #### C BC #### [facility] [address] [place] [address] Dr[place], [facility]83 [employer] Installer: Mario Anne MD INR Coag (PPP) [Relative time] 0.9 {INR} Normal 0.9-1.2 [facility] Comment on above: Performed By: #### C BC #### [address] [place], [place] [id number] [employer] Maker [employer] Installer: Mario Anne MD PT Coag (PPP) [Time] 9.7 s Normal 9.7-12.2 [facility] Comment on above: Performed By: #### C BC #### [facility] [address] [place] [address] Dr. [place], [facility]83 Aw[employer] Maker [employer] Installer: Mario Anne MD Lupus Anticoagulant NOT REPORTED Normal [facility] Comment on above: Performed By: #### C BC #### [address] [place], [place] 1599183 [employer] Maker [employer] Installer: Mario Anne MD Rubella Ab, IgGon 11-25-2018 Rubella Ab, IgG 27.5 IU/mL Normal [facility] Comment on above: Result Comment: REFERENCE RANGE: <5.0 NON-REACTIVE (non-immune) 5.0 TO 9.9 EQUIVOCAL >=10.0 REACTIVE (immune) Performed By: #### T OXOM, HSVG12, CMVM, FA2, MATIAS, TOXOG, HSVM12, CMVG, FA5 #### [address] [id number] [employer] Installer: Geo Mar MD #### CBC, FIB #### [facility] [address] [place] [address] [employer] Maker [employer] Installer: Mario Anne MD #### APROTS, APARVP, APROTC, ARUBGM #### [facility] [address] [place] [address] Awning Maker And Installer: Fernando Valencia MD #### LUPPRO #### [address] [id number] Awning Maker And Installer: Geo Mar MD [address] [place] [address] Awning Maker And Installer: Mario Anne MD Surgical Pathologyon 019 Surgical Pathology (NOTE) [id number] [facility] CONSULTING PATHOLOGISTS [facility] ANATOMIC PATHOLOGY [address] [place] [id number] SURGICAL PATHOLOGY CONSULTATION Patient Name: DEION CUMMINGS [facility] Rec: [id number] Path Number: [id number] Collected: 11/25/2018 Received: 11/29/2018 Reported: 11/30/2018 16:37 -- Diagnosis -- PLACENTA, 21 WEEKS: SMALL PLACENTA (230 G) WITH SEVERE ACUTE CHORIOAMNIONITIS AND ACUTE FUNISITIS. Harvey Hanna Electronically Signed Out ajb/11/30/2018 Clinical Information Operative Findings: PLACENTA Source of Specimen 1: PLACENTA Gross Description DEION CUMMINGS, PLACENTA Placenta with attached membranes and umbilical cord. UMBILICAL CORD Length: 29.0 cm Diameter: 1.4 cm Color: Dusky, ferrer-ibanez True knots: No Number of vessels: 3 Spiraling: Normal Insertion into surface: Paracentral MEMBRANES Color: Ferrer-ibanez, opacified with a marginal insertion Meconium staining: No SURFACE Color: Ferrer-ibanez, with a delicate and sparse array of surface vessels Subchorionic fibrin: No MATERNAL SURFACE Cotyledons: -Fragmented/torn: (Approximately 20%) and completeness cannot be determined. There are patchy areas of lightly adherent clot. There is no disc compression and the adhesed clot covers approximately 30% of the disc. -Focal lesions: There are areas of yellow and red induration up to 2.5 cm that occupy 10% of the disc. Placental size: 13.0 x 12.0 x 3.0 cm Shape: Ovoid Weight: 238 grams Number of cassettes: 4cs tm Microscopic Description Umbilical cord: Severe acute funisitis Membranes: Severe acute chorioamnionitis Meconium staining: No Infarcts: No Intervillous thrombi: No Subchorionic fibrin: Slight increase Villous maturation: immature Nucleated erythrocytes in villous capillaries: Rare Other: Few microcalcifications Normal [facility] Comment on above: Performed By: #### T OXOM, HSVG12, CMVM, FA2, MATIAS, TOXOG, HSVM12, CMVG, FA5 #### [facility] [employer] [address] [place] [address] [id number] Awning Maker And Installer: Geo Mar MD #### CBC, FIB #### [facility] [address] [place] [address] [place] [address] Awning Maker And Installer: Mario Anne MD #### APROTS, APARVP, APROTC, ARUBGM #### [facility] [address] [place] [address] Awning Maker And Installer: Fernando Valencia MD #### LUPPRO #### [address] [id number] Awning Maker And Installer: Geo Mar MD [facility] [address] [place] [address] [place] [address] Awning Maker And Installer: Mario Anne MD Thyroid Stim. Horm.on 2018 TSH Qn 1.78 m[IU]/L Normal 0.30-5.00 [facility] Comment on above: Performed By: #### T SH ####[facility] [place] [address] [place] [address] Lab Director: Mario Anne MD Toxoplasma Ab,IgGon 11-26-19 19 Toxoplasma Ab,IgG <0.5 Normal [facility] Comment on above: Result Comment: REFERENCE RANGE: <6.3 NON-REACTIVE 6.4 TO 9.9 EQUIVOCAL >=10.0 REACTIVE THE PRESENCE OF TOXOPLASMA GONDII IgG ANTIBODIES IS INDICATIVE OF EXPOSURE TO THE PROTOZOAN. THE ABSENCE OF TOXOPLASMA IgG ANTIBODIES SUGGESTS THAT THE PATIENT HAS NOT BEEN EXPOSED TO THIS ORGANISM AND IS SUSCEPTIBLE TO PRIMARY INFECTION. DETERMINATION OF PRIMARY OR RECENT INFECTION REQUIRES DEMONSTRATING SEROCONVERSION BETWEEN ACUTE AND CONVALESCENT SERA. Performed By: #### T OXOM, HSVG12, CMVM, FA2, MATIAS, TOXOG, HSVM12, CMVG, FA5 #### [address] [id number] Awning Maker And Installer: Geo Mar MD #### CBC, FIB #### [address] [place] [address] Awning Maker And Installer: Mario Anne MD #### APROTS, APARVP, APROTC, ARUBGM #### [facility] [address], [place] [id number] Awning Maker And Installer: Fernando Valencia MD #### LUPPRO #### [address] [id number] Awning Maker And Installer: Geo Mar MD [facility] [address] [place] [address] Awning Maker And Installer: Mario Anne MD Toxoplasma Ab,IgMon 11-26-19 19 Toxoplasma Ab,IgM 0.55 Index Normal [facility] Comment on above: Result Comment: REFERENCE RANGE: <0.90 NON-REACTIVE 0.90 TO 1.00 INDETERMINANT >=1.10 REACTIVE Performed By: #### T OXOM, HSVG12, CMVM, FA2, MATIAS, TOXOG, HSVM12, CMVG, FA5 #### [facility] [address] [place], [place] [id number] Awning Maker And Installer: Geo Mar MD #### CBC, FIB #### [address] [place] [address] Awning Maker And Installer: Mario Anne MD #### APROTS, APARVP, APROTC, ARUBGM #### [facility] [address] [place] [address] Awning Maker And Installer: Fernando Valencia MD #### LUPPRO #### [place] [address] [place], [place] [id number] Awning Maker And Installer: Geo Mar MD [address] [place] [address] Awning Maker And Installer: Mario Anne MD Type + Screenon 11-25-2018 Type + Screen Sample Expiration 11/28/2018 Arm Band Number [id number] ABO/Rh(D) O POSITIVE Antibody Screen NEGATIVE Normal [facility] Comment on above: Performed By: #### T YS ####[address] [place] [address] Lab Director: Mario Anne MD CBCon 11-24-2018 Erythrocyte distribution width (RBC) [Ratio] 13.2 % Normal 11.8-14.4 [facility] Comment on above: Performed By: #### C BC #### [address] [place] [address] Awning Maker And Installer: Mario Anne MD Hematocrit (Bld) [Volume fraction] 31.6 % Low 36.3-47.1 [facility] Comment on above: Performed By: #### C BC #### [address] [place] [address] Awning Maker And Installer: Mario Anne MD Hemoglobin (Bld) [Mass/Vol] 10.1 g/dL Low 11.9-15.1 [facility] Comment on above: Performed By: #### C BC #### [facility] [address] [place] [address] [place] [address] Awning Maker And Installer: Mario Anne MD MCH (RBC) [Entitic mass] 28.1 pg Normal 25.2-33.5 [facility] Comment on above: Performed By: #### C BC #### [facility] [address] [place], [facility] Awning Maker And Installer: Mario Anne MD MCHC (RBC) [Mass/Vol] 32.0 g/dL Normal 28.4-34.8 [facility] Comment on above: Performed By: #### C BC #### [address] [place], [facility] Awning Maker And Installer: Mario Anne MD MCV (RBC) [Entitic vol] 88.0 fL Normal 82.6-102.9 [facility] Comment on above: Performed By: #### C BC #### [address] [place], [facility] Awning Maker And Installer: Mario Anne MD NRBC Automated 0.0 per 100 WBC Normal 0.0 [facility] Comment on above: Performed By: #### C BC #### [address] [place], [facility] Awning Maker And Installer: Mario Anne MD Platelet mean volume (Bld) [Entitic vol] 10.1 fL Normal 8.1-13.5 [facility] Comment on above: Performed By: #### C BC #### [address] [place], [facility] Awning Maker And Installer: Mario Anne MD Platelets (Bld) [#/Vol] 246 10*3/uL Normal 138-453 [facility] Comment on above: Performed By: #### C BC #### [facility] [address] [place] [address] Awning Maker And Installer: Mario Anne MD RBC (Bld) [#/Vol] 3.59 10*6/uL Low 3.95-5.11 [facility] Comment on above: Performed By: #### C BC #### [facility] [address] [place] [id number] Awning Maker And Installer: Mario Anne MD WBC (Bld) [#/Vol] 10.7 10*3/uL Normal 3.5-11.3 [facility] Comment on above: Performed By: #### C BC #### [facility] [address] [place], [place] [id number] Awning Maker And Installer: Mario Anne MD Type + Screenon 11-24-2018 Type + Screen Sample Expiration 11/27/2018 Arm Band Number [id number] ABO/Rh(D) O POSITIVE Antibody Screen NEGATIVE Normal [facility] Comment on above: Performed By: #### T YS #### [facility] [address] [place], [place] [id number] Awning Maker And Installer: Mario Anne MD US OB 14 PLUS WEEKS SINGLE O R FIRST GESTATIONon 11-24-2018 US OB 14 PLUS WEEKS SINGLE OR FIRST GESTATION EXAMINATION: TRANSABDOMINAL SECOND/THIRD TRIMESTER OBSTETRIC PELVIC ULTRASOUND WITH COLOR DOPPLER FLOW 11/24/2018 10:36 am TECHNIQUE: TRANSABDOMINAL PELVIC ULTRASOUND WITH COLOR DOPPLER FLOW COMPARISON: 09/30/2018 HISTORY: ORDERING SYSTEM PROVIDED HISTORY: vaginal bleeding/ complete and cervical length FINDINGS: GENERAL OBSERVATIONS: : Single CARDIAC ACTIVITY: Yes HEART RATE: 136 bpm BODY AND LIMB MOVEMENTS: Yes POSITION: Breech PLACENTA LOCATION: Anterior MUKUL: 0 ESTIMATED AGE: BY LMP: 21 weeks 2 days CURRENT US: 21 weeks 4 days ESTIMATED WEIGHT: 475 grams, 85%tile by LMP, MEASUREMENTS: BPD: 4.9 cm, 34%tile HEAD CIRCUMFERENCE: 18.5 cm, 22%tile ABD. CIRCUMFERENCE: 18.1 cm, 90%tile FEMUR LENGTH: 3.6 cm, 46%tile CERVICAL LENGTH: 1.3 cm IMPRESSION: A single live intrauterine with estimated gestational age of 21 weeks 4 days by ultrasound. The estimated weight is 475 g. Low amniotic fluid volume with MUKUL of 0. Findings sent to the Results Communication Center to be communicated to the clinical service. Interpreted by: Jose Luis Adam MD Signed by: Jose Luis Adam MD 11/24/18 Final result Normal [facility] US OB TRANSVAGINALon US OB TRANSVAGINAL EXAMINATION: FIRST TRIMESTER OBSTETRIC ULTRASOUND 09/30/2018 TECHNIQUE: Transvaginal first trimester obstetric pelvic ultrasound was performed. COMPARISON: None HISTORY: ORDERING SYSTEM PROVIDED HISTORY: VAGINAL BLEEDING, AFTER 1ST TRIMESTER, INTERNAL OS NOT SEEN ON TA US Initial evaluation. FINDINGS: Uterus: Anteverted with appropriate size, measuring . No discrete myometrial lesions. Closed cervix, measuring 4.5 cm. Gestational Sac(s): Single normal appearing gestational sac. Extension of the inferior placental margin over the internal cervical os. No evident subchorionic hemorrhage. Yolk Sac: Not visualized Pole: Single pole Moodys Rump Length: 7.11 cm Heart Rate: 145 beats per minute Right ovary: No visualization of the right ovary potentially due to positioning and/or bowel gas. No obvious adnexal abnormality. Left ovary: Normal size, measuring 1.8 cm x 1.7 cm x 2.5 cm. Normal degree of vascularity. Follicles. Free fluid: None visualized Estimated gestational age by current ultrasound: 13 weeks 2 days Estimated gestational by LMP/prior ultrasound: Not provided Estimated due date: 04/05/2019 IMPRESSION: 1. Single live intrauterine with an estimated gestational age of 13 weeks 2 days based upon this study (estimated due date 04/05/2019). 2. Placenta previa. Recommend attention on follow-up imaging. 3. Normal sonographic appearance of the left ovary. 4. No visualization of the right ovary. Interpreted by: Grzegorz Vicente MD Signed by: Grzegorz Vicente MD 09/30/18 Final result Normal [facility] ABO/Rhon 09-17-2018 ABO and Rh group Nom (Bld) O Positive [facility] HCG (QUANTITATIVE)on Beta HCG ( test) Ql (U) Males and non females: <5 mIU/mL Females during : 3-4 weeks 9-130 mIU/mL 4-5 weeks 75-2600 mIU/mL 5-6 weeks 850-20,800 mIU/mL 6-7 weeks 4000-100,200 mIU/mL 7-12 weeks 11,500-289,000 mIU/mL 12-16 weeks 18,300-137,000 mIU/mL 16-29 weeks 1,400-53,000 mIU/mL 29-41 weeks 940-60,000 mIU/[place] [address] m[IU]/mL High [facility] Interpretation and review of laboratory results Abnormal [facility] Vital Signs Date Time Vital Sign Value Performing Clinician Facility 11-30-2018 08:46-0400 Body Temperature 97.9 [degF] [place], [place] 11-30-2018 08:46-0400 BP Diastolic 85 mm[Hg] [place], [place] 11-30-2018 08:46-0400 BP Systolic 133 mm[Hg] [place] 11-30-2018 08:46-0400 Pulse (Heart Rate) 80 /min [place] 11-30-2018 08:46-0400 Pulse Oximetry 99 % [place] 11-30-2018 08:46-0400 Respiratory Rate 18 /min [place], [place] 11-30-2018 04:30-0400 BMI (Body Mass Index) 54.64 kg/m2 [place] 11-30-2018 04:30-0400 Body weight 167.83 kg [place] 11-29-2018 08:35-0400 Height 175.3 cm [place] 11-28-2018 21:40-0400 Respiratory rate NOT REPORTED [facility] Comment on above: Performed By: #### VBG ####[facility] [place] [address] Lab Director: Mario Anne MD 11-28-2018 19:51-0400 Respiratory rate NOT REPORTED Art gUarte [facility] SHIRA Harris 09-17-2018 00:04-0400 BMI (Body Mass Index) 54.93 kg/m2 Jenniferzoey Vivar [facility] 09-17-2018 00:04-0400 Body Temperature 98.29 [degF] Jennifer Vivar [facility] 09-17-2018 00:04-0400 Body weight 168.74 kg Jenniferzoey Vivar [facility] 09-17-2018 00:04-0400 BP Diastolic 91 mm[Hg] [facility] 09-17-2018 00:04-0400 BP Systolic 170 mm[Hg] [facility] 09-17-2018 00:04-0400 Height 175.3 cm [facility] 09-17-2018 00:04-0400 Pulse (Heart Rate) 95 /min [facility] 09-17-2018 00:04-0400 Pulse Oximetry 98 % [facility] 09-17-2018 00:04-0400 Respiratory Rate 16 /min [facility] Encounters Encounter Date Encounter Type Care Provider Facility Start: 06-23-2022 ambulatory MIKE OSULLIVAN Facility:H 1 Start: 06-16-2022 End: 07-15-2022 ambulatory CORNELL SPRING Facility:[facility]1 Start: 03-18-2022 End: 03-18-2022 ambulatory MIKE HOY Facility:[facility]1 Start: 12-18-2021 End: 12-18-2021 ambulatory MIKE HOY Facility:[facility]1 Start: 12-04-2021 End: 12-05-2021 ambulatory MIKE HOY Facility:[facility]1 Start: 11-25-2021 End: 11-26-2021 ambulatory MIKE HOY Facility:[facility]1 Start: 09-19-2021 End: 09-19-[address] ÁNGEL BABIN Facility:[facility]1 Start: 07-30-2021 End: 07-30-2021 ambulatory MIKE HOY Facility:[facility]1 Start: 04-29-2021 End: 04-30-2021 ambulatory VADIM LAGOSLES [facility] Start: 04-29-2021 End: 04-29-2021 Subsequent hospital visit by physician Mike Osullivan MD Work Phone: [facility] Comment on above: Abnormal menstrual p eriods Start: 04-08-2020 End: 04-08-2020 Subsequent hospital visit by physician Mike Vincentflorentin ERNANDEZ [facility] Start: 11-28-2018 End: 11-30-2018 Evaluation and management of inpatient [facility] Start: 11-28-2018 End: 11-30-2018 Evaluation and management of inpatient Art Ugarte Work Phone: [facility] Comment on above: Sepsis, due to unspe cified organism (HCC) (Primary Dx) Start: 11-24-2018 End: 11-25-2018 Evaluation and management of inpatient [facility] Start: 09-30-2018 End: 09-30-2018 Patient encounter procedure [facility] Start: 09-17-2018 End: 09-17-2018 Emergency department patient visit [facility] Start: 09-17-2018 End: 09-17-2018 Emergency department patient visit [facility] Work Phone: [facility] Comment on above: Vaginal bleeding in (Primary Dx) Procedures Date Procedure Procedure Detail Performing Clinician Start: 04-29-2021 Gonadotropin chorionic quantitative Vadim Joyce 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 Work Phone: Start: 04-08-2020 Assay of insulin total Mike Osullivan Work Phone: Start: 04-08-2020 Assay of thyroid stimulating hormone tsh Mike Osullivan Work Phone: Start: 04-08-2020 Assay of thyroxine total Mike Osullivan Work Phone: Start: 04-08-2020 Assay of triiodothyronine t3 total tt3 Mike Osullivan Work Phone: Start: 04-08-2020 Blood count complete auto&auto difrntl wbc Mike Osullivan Work Phone: Start: 04-08-2020 Comprehensive metabolic panel Mike Osullivan Work Phone: Start: 04-08-2020 Hemoglobin glycosylated a1c Mike lerma Work Phone: Start: 04-08-2020 Thyroid horm uptk/thyroid hormone binding ratio Mike Osullivan Work Phone: Start: 11-30-2018 DISCHARGE PATIENT MIKE OSULLIVAN Start: 11-30-2018 INITIATE OXYGEN THERAPY PROTOCOL MIKE OSULLIVAN Start: 11-30-2018 Blood count complete auto&auto difrntl wbc MIKE OSULLIVAN Start: 11-30-2018 Blood count complete automated MIKE H OY Start: 11-30-2018 Drug screen quantitative vancomycin MIKE OSULLIVAN Start: 11-30-2018 Blood count complete auto&auto difrntl wbc Marciano Jocelin Fernandesmarry Work Phone: Start: 11-30-2018 Blood count complete automated Marciano Jocelin Stewarde Work Phone: Start: 11-30-2018 Drug screen quantitative vancomycin Brenton Horton Work Phone: Start: 11-29-2018 Dup-scan xtr veins complete bilateral study MIKE OSULLIVAN Start: 11-29-2018 Culture bacterial blood aerobic w/id isolates MIKE OSULLIVAN Start: 11-29-2018 INITIATE OXYGEN THERAPY PROTOCOL MIKE OSULLIVAN Start: 11-29-2018 AMBULATE IN OLMEDO MIKE OSULLIVAN Start: 11-29-2018 Dup-scan xtr veins complete bilateral study Marciano Griffin Work Phone: Start: 11-29-2018 IP CONSULT TO SPIRITUAL SERVICES MIKE OSULLIVAN Start: 11-29-2018 Assay of magnesium MIKE OSULLIVAN Start: 11-29-2018 Blood count complete auto&auto difrntl wbc MIKE OSULLIVAN Start: 11-29-2018 Blood count complete automated MIKE H OY Start: 11-29-2018 Assay of magnesium Brenton Marco A Horton Work Phone: Start: 11-29-2018 Blood count complete auto&auto difrntl wbc Brenton Marco A Horton Work Phone: Start: 11-29-2018 Blood count complete automated Brenton Just in [place] Work Phone: Start: 11-29-2018 DIET GENERAL MIKE OSULLIVAN Start: 11-29-2018 FULL CODE MIKE OSULLIVAN Start: 11-29-2018 INITIATE OXYGEN THERAPY PROTOCOL MIKE HOFlorentin Start: 11-29-2018 IP CONSULT TO CASE MANAGEMENT MIKE RAMIREZ Y Start: 11-29-2018 IP CONSULT TO CELL CHANGER MIKE OSULLIVAN Start: 11-29-2018 NOTIFY PHYSICIAN (SPECIFY) MIKE OSULLIVAN Start: 11-29-2018 PHARMACY TO DOSE VANCOMYCIN MIKE OSULLIVAN Start: 11-29-2018 PULSE OXIMETRY SPOT CHECK MIKE HOY Start: 11-29-2018 REASON FOR NO MECHANICAL VTE PROPHYLAXIS MIKE HOY Start: 11-29-2018 TOBACCO CESSATION EDUCATION MIKE HOY Start: 11-29-2018 VITAL SIGNS MIKE HOY Start: 11-29-2018 PATIENT STATUS (FROM ED OR OR/PROCEDURAL) MIKE OSULLIVAN Start: 11-29-2018 Us pelvic nonobstetric real-time image complete MIKE HOY Start: 11-28-2018 PULSE OXIMETRY SPOT CHECK Brenton medeiros Work Phone: Start: 11-28-2018 Culture bacterial quanttative colony count urine MIKE HOY Start: 11-28-2018 Urinalysis microscopic only MIKE HOY Start: 11-28-2018 Urnls dip stick/tablet rgnt auto w/o microscopy MIKE HOY Start: 11-28-2018 PHARMACY TO DOSE VANCOMYCIN MIKE OSULLIVAN Start: 11-28-2018 Us pelvic nonobstetric real-time image complete Art A Troito Work Phone: Start: 11-28-2018 Radiologic exam chest single view MKIE HOY Start: 11-28-2018 Ct abdomen & pelvis w/o contrast material MIKE HOY Start: 11-28-2018 Ecg routine ecg w/least 12 lds w/i&r MIKE HOY Start: 11-28-2018 Assay of lipase MIKE HOY Start: 11-28-2018 Blood count complete auto&auto difrntl wbc MIKE HOY Start: 11-28-2018 Prothrombin time MIKE HOY Start: 11-28-2018 Thromboplastin time partial plasma/whole blood MIKE HOY Start: 11-28-2018 Blood gases any combination ph pco2 po2 co2 hco3 MIKE HOY Start: 11-28-2018 Urinalysis microscopic only Art A Hussa in Work Phone: Start: 11-28-2018 Urnls dip stick/tablet rgnt auto w/o microscopy [employer] Work Phone: Start: 11-28-2018 Assay of lactate MIKE OSULLIVAN Start: 11-28-2018 Culture bacterial blood aerobic w/id isolates MIKE HOY Start: 11-28-2018 Radiologic exam chest single view [employer] Work Phone: Start: 11-28-2018 Ct abdomen & pelvis w/o contrast material [employer] Work Phone: Start: 11-28-2018 Ecg routine ecg w/least 12 lds w/i&r [employer] Work Phone: Start: 11-28-2018 Assay of lipase [employer] Phone: Start: 11-28-2018 Blood count complete auto&auto difrntl wbc [employer] Work Phone: Start: 11-28-2018 Prothrombin time [employer] Phone: Start: 11-28-2018 Thromboplastin time partial plasma/whole blood [employer] Phone: Start: 11-28-2018 Blood gases any combination ph pco2 po2 co2 hco3 [employer] Phone: Start: 11-28-2018 Culture bacterial blood aerobic w/id isolates [employer] Work Phone: Start: 11-28-2018 LACTATE, SEPSIS [employer] Work Phone: Start: 11-25-2018 HEMOGLOBIN AND HEMATOCRIT, BLOOD MIKE HOFlorentin Start: 11-25-2018 Drug screen class list a MIKE OSULLIVAN Start: 11-25-2018 DISCHARGE PATIENT MIKE HOFlorentin Start: 11-25-2018 INITIATE OXYGEN THERAPY PROTOCOL MIKE HOFlorentin Start: 11-25-2018 Antibody cytomegalovirus cmv MIKE HOY Start: 11-25-2018 Antibody cytomegalovirus cmv igm MIKE HOY Start: 11-25-2018 Antibody herpes smplx non-specific type test MIKE HOY Start: 11-25-2018 Antibody parvovirus MIKE HOY Start: 11-25-2018 Antibody rubella MIKE HOY Start: 11-25-2018 Antibody toxoplasma MIKE HOY Start: 11-25-2018 Antibody toxoplasma igm MIKE HOY Start: 11-25-2018 Assay of thyroid stimulating hormone tsh MIKE HOY Start: 11-25-2018 Blood count complete automated MIKE H OY Start: 11-25-2018 Clotting factor ii prothrombin specific MIKE HOY Start: 11-25-2018 Clotting factor v acg/proaccelerin labile factor MIKE HOY Start: 11-25-2018 Clotting inhibitors protein c antigen MIKE HOY Start: 11-25-2018 Clotting inhibitors protein s total MIKE HOY Start: 11-25-2018 Fibrinogen activity MIKE HOY Start: 11-25-2018 Immunoassay infectious agent antibody josue nos MIKE HOY Start: 11-25-2018 Thromboplastin inhibition tissue MIKE HOY Start: 11-25-2018 TYPE AND SCREEN MIKE HOY Start: 11-25-2018 DIET GENERAL MIKE HOY Start: 11-25-2018 FULL CODE MIKE HOY Start: 11-25-2018 INITIATE OXYGEN THERAPY PROTOCOL MIKE HOY Start: 11-25-2018 Level iv surg pathology gross&microscopic exam MIKE HOY Start: 11-25-2018 NOTIFY PHYSICIAN (SPECIFY) MIKE HOY Start: 11-25-2018 PLACE INTERMITTENT PNEUMATIC COMPRESSION DEVICE MIKE HOY Start: 11-25-2018 VITAL SIGNS MIKE HOY Start: 11-25-2018 ADVANCE DIET TOLERATED (NURSING COMMUNICATION) MIKE HOY Start: 11-25-2018 AMBULATE PATIENT MIKE HOY Start: 11-25-2018 ASSESS MIKE HOY Start: 11-25-2018 ICE TO AFFECTED AREA MIKE HOY Start: 11-25-2018 NOTIFY PHYSICIAN (SPECIFY) MIKE HOY Start: 11-25-2018 SALINE LOCK IV MIKE HOY Start: 11-25-2018 STRAIGHT CATH MIKE HOY Start: 11-25-2018 VITAL SIGNS MIKE HOY Start: 11-24-2018 PATIENT STATUS (DIRECT) MIKE HOY Start: 11-24-2018 VITAL SIGNS MIKE HOY Start: 11-24-2018 SALINE LOCK IV MIKE HOY Start: 11-24-2018 TYPE AND SCREEN MIKE HOY Start: 11-24-2018 Us preg uterus after 1st trimest 03/21 gestation MIKE HOY Start: 11-24-2018 Us preg uterus real time w/image dcmtn transvag MIKE HOY Start: 11-24-2018 Blood count complete automated MIKE H OY Start: 11-24-2018 NURSING COMMUNICATION MIKE HOY Start: 11-13-2018 C. TRACHOMATIS, EXTERNAL RESULT MIKE HOY Start: 09-30-2018 DISCHARGE PATIENT MIKE HOY Start: 09-30-2018 Us preg uterus real time w/image dcmtn transvag MIKE HOY Start: 09-30-2018 US OB LIMITED - UNIT PERFORMED MIKE H OY Start: 09-17-2018 ABO and Rh group [Type] in Blood Jennifer Vivar Work Phone: Start: 09-17-2018 Choriogonadotropin [Units/volume] in Serum or Plasma Jennifer Fagan Vivar Work Phone: Start: 08-18-2018 C. TRACHOMATIS, EXTERNAL RESULT MIKE HOY Start: 08-18-2018 HEPATITIS B, EXTERNAL RESULT MIKE HOY Start: 08-18-2018 HIV, EXTERNAL RESULT MIKE HOY Start: 08-18-2018 N. GONORRHOEAE, EXTERNAL RESULT MIKE HOY Start: 08-18-2018 RPR, EXTERNAL RESULT MIKE HOY Start: 08-18-2018 RUBELLA TITER, EXTERNAL RESULT MIKE H OY Plan of Treatment Date Care Activity Detail Author Start: 11-19-2020 Influenza vaccination Flu vaccine (# 1) [facility] Start: 11-20-2019 Influenza vaccination Flu vaccine (# 1) [place] Start: 11-19-2018 Influenza vaccination Flu vaccine (# 1) [place] Start: 2014 Cervical cancer screen Cervical canc er screen [place], [place] Start: 2014 Screening for malign ant neoplasm of cervix [facility] Start: 2012 DTaP/Tdap/Td vaccine (1 - Tdap) DTaP/Tdap/Td vaccine (1 - Tdap) [facility] Start: 2008 HIV screen HIV screen [place], [place] Start: 2008 HIV screening HIV screen [facility] Start: 2008 HPV vaccine (1 - Fem killian 3-dose series) HPV vaccine (1 - Female 3-dose series) [place], [place] Start: 2006 Varicella Vaccine (1 of 2 - 13+ 2-dose series) Varicella Vaccine (1 of 2 - 13+ 2-dose series) [place] Start: 2005 Depression Screen Depression Screen [facility] Start: 1999 Pneumococcal 0-64 ye ars Vaccine (1 of 1 - PPSV23) Pneumococcal 0-64 years Vaccine (1 of 1 - PPSV23) [place] Start: 1999 Pneumococcal 0-64 ye ars Vaccine (1 of 2 - PPSV23) Pneumococcal 0-64 years Vaccine (1 of 2 - PPSV23) [facility] Start: 1998 COVID-19 Vaccine (1) COVID-19 Vaccin e (1) [facility] Start: 1994 Varicella vaccine (1 of 2 - 2-dose childhood series) Varicella vaccine (1 of 2 - 2-dose childhood series) [facility] Start: 1993 Hepatitis C screening Hepatitis C sc reen [facility] Bacteria identified Cx Nom (U) Urine Culture Microbiology STAT 11/28/2018 9:39 PM EDT [place] CBC CBC Lab Routine Daily until discontinued starting 11/30/2018, 1 completed [place] Comment on above: Daily until disconti nued starting 11/30/2018, 1 completed Comprehensive Metabo lic Panel w/ Reflex to MG Comprehensive Metabolic Panel w/ Reflex to MG Lab Routine Daily until discontinued starting 11/30/2018, 1 completed [place] Comment on above: Daily until disconti nued starting 11/30/2018, 1 completed Culture blood #1 Culture blood # 1 Microbiology STAT 11/28/2018 7:30 PM EDT [place] Culture Blood #2 Culture Blood # 2 Microbiology Routine 11/29/2018 8:20 AM EDT [place] EKG 12 lead EKG 12 lead ECG STAT 11/28/2018 7:50 PM EDT [place] Initiate Oxygen Ther apy Protocol Initiate Oxygen Therapy Protocol Respiratory Care Routine Daily until discontinued starting 11/29/2018 [place] Comment on above: Daily until disconti nued starting 11/29/2018 End: 12-02-2018 Vancomycin, trough Vancomycin, trough Lab Timed One Time for 1 Occurrences starting 12/02/2018 until 12/02/2018 [place] Comment on above: One Time for 1 Occur rences starting 12/02/2018 until 12/02/2018 Payers Date Payer Category Payer Unknown [id number] 2018 Unknown xxxxxxxxxxxx 1. [id number] 2014 Unknown [id number] 1. [id number] 1993 Unknown [id number] 2.16.8 [id number] 1993 Unknown [id number] 2.16.8 [id number] 1993 Unknown [id number] 2.16.8 [id number] 1993 Unknown [id number] 2.16.8 [id number] 1993 Unknown [id number] 2.16.84 [id number] 1993 Unknown [id number] 2.16.84 [id number] 1993 Unknown [id number] 2.16.84 [id number] 1993 Unknown [id number] 2.16.84 [id number] 1993 Unknown [id number] 2.16.84 [id number] 1993 Unknown [id number] 2.16.84 [id number] 1993 Unknown [id number] 2.16.84 [id number] 1993 Unknown [id number] 2.16.84 [id number] 1961 Medicaid [id number] 1961 Self-pay [id number] 1959 Unknown [id number] Social History Date Type Detail Facility Start: 11-25-2018 End: 11-28-2018 Tobacco smoking status NHIS Current every day smoker [employer] Start: 11-28-2018 Alcohol intake Not Currently [employer] [facility] Start: 1993 Sex Assigned At Not on file [facility] Start: 11-25-2018 End: 11-28-2018 Tobacco use and exposure Never used [employer] Start: 11-28-2018 Alcohol intake Ex-drinker (finding) [employer] Start: 09-17-2018 Cigarettes smoked current (pack per day) - Reported [facility] Start: 09-17-2018 History SDOH Alcohol Frequency 1 [facility] Evaluation note Note Date & Type Note Facility Evaluation note Diagnosis Abnormal menstrual periods documented in this encounter [employer] Work Phone: Summary Purpose Family History No Family History Records FoundNo Family History Records FoundNo Family History Records FoundNo Family History Records FoundNo Family History Records Found Advance Directives No Advanced Directives Records FoundDocuments on File Type Date Recorded Patient Legal Instruments Examiner Expl anation Advance Directives and Living Will Power of Securities Sales Associate Latest Code Status on File Code Status Date Activated Date Inactivated Comments Full Code 11/28/2018 11:54 PM Full Code 11/25/2018 5:09 AM 11/25/2018 10:15 PM Full Code 11/25/2018 3:30 AM 11/25/2018 5:09 AM Documents on File Type Date Recorded Patient Legal Instruments Examiner Expl anation ACP-Advance Directive ACP-Power of Securities Sales Associate Latest Code Status on File Code Status Date Activated Date Inactivated Comments Full Code 11/28/2018 11:54 PM 11/30/2018 4:25 PM Documents on File Type Date Recorded Patient Legal Instruments Examiner Expl anation Advance Directives and Livin g Will 09/17/2018 12:02 AM Discharge Instructions * Instructions* Dona Vargas RN - 11/30/2018 Follow up with OB as scheduled Stay hydrated Elevated leg while sitting/laying As needed miralax for constipation documented in this encounter* Attachments The following attachments cannot be sent through Care Everywhere. * : Vaginal Bleeding (Mongolian) documented in this encounter History of Present Illness * Dona Vargas RN - 11/30/2018 2:03 PM EDT Discharge instructions reviewed with pt and significant other, verbalize understanding of instructions. Deny questions or needs to go home. Will escort pt to private car shortly. * Dona Vargas RN - 11/30/2018 11:03 AM EDT Pt put in contact with Not Alone support group. * Jennifer Hedrick MD - 11/30/2018 8:44 AM EDT Department of Gynecology Attending Progress Note SUBJECTIVE: Pt feels much better today, not as emotional during discussion OBJECTIVE: Physical Exam VITALS: BP 114/67 Pulse 86 Temp 97.2 F (36.2 C) (Temporal) Resp 16 Ht 5' 9 (1.753 m) Wt (!) 370 lb (167.8 kg) LMP 06/28/2018 SpO2 99% BMI 54.64 kg/m TEMPERATURE: Current - Temp: 97.2 F (36.2 C); Max - Temp Av.8 F (36.6 C) Min: 97.2 F (36.2 C) Max: 98.5 F (36.9 C) 24HR BLOOD PRESSURE RANGE: Systolic (24hrs), Av , Min:114 , Max:146 ; Diastolic (24hrs), Av, Min:65, Max:77 24HR INTAKE/OUTPUT: Intake/Output Summary (Last 24 hours) at 11/30/2018 0844 Last data filed at 11/30/2018 0430 Gross per 24 hour Intake 3764.63 ml Output 650 ml Net 3114.63 ml URINARY CATHETER OUTPUT (Moss): DRAIN/TUBE OUTPUT: CONSTITUTIONAL: awake, alert, cooperative, no apparent distress, and appears stated age LUNGS: No increased work of breathing, good air exchange, clear to auscultation bilaterally, no crackles or wheezing CARDIOVASCULAR: Normal apical impulse, regular rate and rhythm, normal S1 and S2, no S3 or S4, and no murmur noted ABDOMEN: No scars, normal bowel sounds, soft, non-distended, non-tender, no masses palpated, no hepatosplenomegally GENITAL/URINARY: Pt describes normal post lochia DATA: CBC: Lab Results Component Value Date WBC 6.3 11/30/2018 RBC 2.98 11/30/2018 HGB 8.1 11/30/2018 HCT 26.6 11/30/2018 MCV 89.3 11/30/2018 MCH 27.2 11/30/2018 MCHC 30.5 11/30/2018 RDW 13.4 11/30/2018 PLT 255 11/30/2018 MPV 10.0 11/30/2018 CBC with Differential: Lab Results Component Value Date WBC 6.3 11/30/2018 RBC 2.98 11/30/2018 HGB 8.1 11/30/2018 HCT 26.6 11/30/2018 PLT 255 11/30/2018 MCV 89.3 11/30/2018 MCH 27.2 11/30/2018 MCHC 30.5 11/30/2018 RDW 13.4 11/30/2018 LYMPHOPCT 5 11/28/2018 MONOPCT 4 11/28/2018 BASOPCT 0 11/28/2018 MONOSABS 0.65 11/28/2018 LYMPHSABS 0.80 11/28/2018 EOSABS 0.17 11/28/2018 BASOSABS 0.03 11/28/2018 DIFFTYPE NOT REPORTED 11/28/2018 WBC: Lab Results Component Value Date WBC 6.3 11/30/2018 Platelets: Lab Results Component Value Date PLT 255 11/30/2018 Hemoglobin/Hematocrit: Lab Results Component Value Date HGB 8.1 11/30/2018 HCT 26.6 11/30/2018 CMP: Lab Results Component Value Date NA 139 11/30/2018 K 3.7 11/30/2018 CL 105 11/30/2018 CO2 20 11/30/2018 BUN 7 11/30/2018 CREATININE 0.88 11/30/2018 GFRAA >60 11/30/2018 LABGLOM >60 11/30/2018 GLUCOSE 123 11/30/2018 PROT 5.6 11/30/2018 LABALBU 2.9 11/30/2018 CALCIUM 8.4 11/30/2018 BILITOT 0.16 11/30/2018 ALKPHOS 41 11/30/2018 AST 14 11/30/2018 ALT 17 11/30/2018 BMP: Lab Results Component Value Date NA 139 11/30/2018 K 3.7 11/30/2018 CL 105 11/30/2018 CO2 20 11/30/2018 BUN 7 11/30/2018 LABALBU 2.9 11/30/2018 CREATININE 0.88 11/30/2018 CALCIUM 8.4 11/30/2018 GFRAA >60 11/30/2018 LABGLOM >60 11/30/2018 GLUCOSE 123 11/30/2018 ASSESSMENT AND PLAN: concur with planned discharge, pt declines treatment for depression/grief. Will notify her primary provider for close observation Principal Problem: Sepsis (HCC) Plan: Active Problems: Asthma Plan: Anxiety disorder Plan: UTI (urinary tract infection) Plan: Anemia Plan: Cellulitis of right leg Plan: Tobacco abuse Plan: * Dona Vargas, RN - 11/30/2018 8:[address] Hedrick at bedside. Pt headed to bathroom. Will check vitals and give AM medications when pt backin bed. * Argenis Daniel [facility] - 11/30/2018 7:23 AM EDT [facility] Department Pharmacy Vancomycin Consult: Vancomycin Day: day 2 Current Dosing: vancomycin 1750mg IV every 8 hrs Temp max: 98.5 Recent Labs 11/28/18 1944 11/29/18 0550 CREATININE 0.81 0.80 Estimated Creatinine Clearance: 181 mL/min (based on SCr of 0.8 mg/dL). Recent Labs 11/28/18194311/29/18 0550 11/30/18 0542 WBC 16.9* 16.6* 6.3 Culture Date Source Results 11/28/18 blood no growth 11/29/18 blood in process 11/29/18 urine in process Trough: 22.3mg/L Assessment/Plan: change to Vancomycin 1500mg IV every 8 hours with next dose to be infused at 1400 11/30/18 (today). Pharmacy will continue to monitor for clinical response, culture results and renal function. BUN and creatinine every 72 hours while on vancomycin. Thank you, Kamilah Hampton.Ph., 11/30/2018,7:23 AM * Shelly French LSW - 11/29/2018 4:47 PM EDT Met with Patient this p.m. She is a 23 year old single, white female, admitted with Sepsis. Patientis alert and oriented, polite and cooperative with this assessment. Friend at bedside at this time. Patient resides in [place] with her parents. She uses no DME and has no outside services or community resources currently in place. Patient is employed at [employer] but is currently off work. Patient does drive, provides for her own transportation needs. PCP is Dr. Osullivan. Patient denies having difficulty with affording her medications. Plan for Patient is home upon discharge. She is interested in pursuing Advanced Directives. Educational pamphlet provided at this time. Referral made to Pastoral Care to follow up with this request. [employer] to monitor for discharge needs and assist as they arise. ULICES Shelby 11/29/2018 * Florinda Muir RN - 11/29/2018 11:09 AM EDT Unsuccessful attempt x2 for new IV access. Deputy Clerk called and will be up to attempt. * Ric Vasquez, SHAMAR, LD - 11/29/2018 8:34 AM EDT Nutrition Assessment Type and Reason for Visit: Initial Nutrition Recommendations: High iron in diet Nutrition Assessment: Food and nutrition related knowledge deficit r/t acute injury or trauma, AEB anemia with recent blood losses, and needs for increased iron in diet. Denies losses of appetite or intakes with recent events. Will provide with education on high iron foods. Malnutrition Assessment: Malnutrition Status: No malnutrition Context: Acute illness or injury Findings of the 6 clinical characteristics of malnutrition (Minimum of 2 out of 6 clinical characteristics is required to make the diagnosis of moderate or severe Protein Calorie Malnutrition based on AND/ASPEN Guidelines): 1. Energy Intake-Greater than 75% of estimated energy requirement, 2. Weight Loss-No significant weight loss, 3. Fat Loss-No significant subcutaneous fat loss, 4. Muscle Loss-No significant muscle mass loss, 5. Fluid Accumulation-Mild fluid accumulation, Extremities 6. Toddler Teacher Strength-Not measured Nutrition Risk Level: Moderate, Low Nutrition Diagnosis: Problem: Increased nutrient needs Etiology: related to Acute injury/trauma ? Signs and symptoms: as evidenced by Other (Comment)(low Fe s/p miscarriage) Objective Information: Nutrition-Focused Physical Findings: Obese Wound Type: None Current Nutrition Therapies: Oral Diet Orders: General Oral Diet intake: Unable to assess(No PO records) Oral Nutrition Supplement (ONS) Orders: None Anthropometric Measures: Ht: 5' 9 (175.3 cm) Current Body Wt: 370 lb 6.4 oz (168 kg) Admission Body Wt: 373 lb (169.2 kg) % Weight Change: , none significant per available data. [place] Body Wt: 145 lb (65.8 kg), % [place] Body 255% BMI Classification: BMI > or equal to 40.0 Obese Class III Lab Results Component Value Date NA 134 (L) 11/29/2018 K 3.4 (L) 11/29/2018 CL 101 11/29/2018 CO2 20 11/29/2018 BUN 7 11/29/2018 CREATININE 0.80 11/29/2018 GLUCOSE 121 (H) 11/29/2018 CALCIUM 8.5 (L) 11/29/2018 PROT 5.7 (L) 11/29/2018 LABALBU 3.1 (L) 11/29/2018 BILITOT 0.56 11/29/2018 ALKPHOS 38 11/29/2018 AST 11 11/29/2018 ALT 15 11/29/2018 LABGLOM >60 11/29/2018 GFRAA >60 11/29/2018 No results found for: LABA1C No results found for: EAG No results found for: IRON, TIBC, FERRITIN Nutrition Interventions: Continue current diet Continued Inpatient Monitoring, Coordination of Care, Education Initiated Nutrition Evaluation: Evaluation: Goals set Goals: PO>75% meals with high iron foods Monitoring: Meal Intake, Pertinent Labs, Weight, Patient/Family Education Contact Number: [phone] * Florinda Muir RN - 11/29/2018 8:30 AM EDT Health Therapist called into room by lab, patient c/o pain at IV site. LUE swollen and harder to touch. IV turned off at this time and ice pack applied. * Padmaja Montano RN - 11/29/2018 12:28 AM EDT Spoke with Dr. Horton regarding pharmacist call about antibiotics. Orders received to modify per pharmacy recommendation. * Padmaja Montano RN - 11/29/2018 12:18 AM EDT Spoke with Dr. Pond regarding consult to THERAPIST SPEECH. She is aware of patient, and will speak with Andres DOW in the morning. * Epi Jacques [facility] - 11/28/2018 9:25 PM EDT Pharmacy Note Vancomycin Consult Deion Cummings is a 23 y.o. female started on Vancomycin for leukocytosis ; consult received fromDr. Art Ugarte to manage therapy. Also receiving the following antibiotics: none. Patient Active Problem List Diagnosis Vaginal bleeding before 22 weeks gestation delivery, delivered Allergies: Abreva [docosanol] Temp max: 101.4 Recent Labs 11/28/181943 BUN 8 Recent Labs 11/28/181943 CREATININE 0.81 Recent Labs 11/28/181943 WBC 16.9* Intake/Output Summary (Last 24 hours) at 11/28/20182123 Last data filed at 11/28/20182108 Gross per 24 hour Intake 50 ml Output Net 50 ml Culture Date Source Results pending Ht Readings from Last 1 Encounters: 11/28/18 5' 9 (1.753 m) Wt Readings from Last 1 Encounters: 11/28/18 (!) 373 lb (169.2 kg) Body mass index is 55.08 kg/m . Estimated Creatinine Clearance: 180 mL/min (based on SCr of 0.81 mg/dL). Goal Trough Level: 15-20 mcg/mL Assessment/Plan: Will initiate vancomycin 1750 mg IV every 8 hours. Timing of trough level will be determined based on culture results, renal function, and clinical response. Thank you for the consult. Will continue to follow. Epi Jacques [facility] 11/28/2018 9:25 PM documented in this encounter Assessments Diagnosis Sepsis, due to unspecified organism (HCC) Asthma Unspecified asthma Anxiety disorder Anxiety state, unspecified UTI (urinary tract infection) Urinary tract infection, site not specified Anemia Anemia, unspecified Cellulitis of right leg Cellulitis and abscess of leg, except foot Tobacco abuse Tobacco use disorder Diagnosis Vaginal bleeding in - Primary Additional Source Comments INFORMATION SOURCE (unrecogn ized section and content) DATE CREATED AUTHOR 11/17/2018 [facility] DATE CREATED AUTHOR AUTHOR'S ORGANIZ ATION 12/04/2018 [facility] DATE CREATED AUTHOR AUTHOR'S ORGANIZ ATION 04/30/2021 [facility] DATE CREATED AUTHOR AUTHOR'S ORGANIZ ATION 05/14/2022 [facility] dical Specialist DATE CREATED AUTHOR AUTHOR'S ORGANIZ ATION 07/21/2022 [facility] Reason for Visit (unrecogniz ed section and content) Reason Comments Fatigue BEGAN 1730 TODAY, po st x3 days, baby born at 22 weeks, Chills Fever Status Reason Specialty Diagnoses / Procedures Referre d By Contact Referred To Contact Diagnoses Sepsis (HCC) Sepsis (HCC) Brenton Horton MD [address] [place] [address], [place] [address] [facility] Reason Comments Vaginal Bleeding Zo Bee RN - 09/17/2018 12:03 AM EDT ED Notes (unrecognized secti on and content) Bleeding started within the last hour, pt is 11weeks and 5 days. Pt states bleeding is only when she wipes after using the rest room. documented in this encounter Care Teams (unrecognized sec tion and content) Cpht Relationship Specialty Start Date End Date Mike Osullivan MD [address] [phone] PCP - General Family Medicine 11/24/18 FOR RECORDS PERTAINING TO PATIENTS WHO ARE OR HAVE BEEN ENROLLED IN A CHEMICAL DEPENDENCY/SUBSTANCEABUSE PROGRAM, SOME INFORMATION MAY BE OMITTED. This clinical summary was aggregated from multiple sources. Caution should be exercised in using it in the provision of clinical care. This summary normalizes information from multiple sources, and as a consequence, information in this document may materially change the coding, format and clinical context of patient data. In addition, data may be omitted in some cases. CLINICAL DECISIONS SHOULD BE BASED ON THE PRIMARY CLINICAL RECORDS. [employer] provides no warranty or guarantee of the accuracy or completeness of information in this document.
[2023-03-28 16:28] LABS: Influenza Virus A Antigen Negative; Influenza Virus B Antigen Negative; Internal Control Within Normal Limits; SARS-CoV-2 Ag NEGATIVE (NEGATIVE)
== END 2023-03-28 15:23 | disposition home or self-care (01) ==
LOC: LAB 15:22
PROVIDERS: PCP Family Medicine; Visit Provider Nurse Practitioner Family
DX: J06.9 Acute upper respiratory infection, unspecified (principal)
CPT/HCPCS: 87635; 87804; 87811

== ENCOUNTER 2023-05-25 04:46 | Emergency (ER) | payer OTHER, SELFPAY ==
[2023-05-25 04:49] VITALS: BP 182/129; PULSE 85; RESP 22; TEMP 36.9; O2SAT 100; BMI 61.7
--- NOTE | 2023-05-25 05:00 | ED.GENADUL1 ---
HPI - General Adult General Chief complaint: Extremity Problem, Nontraumatic Stated complaint: R LEG PAIN Time Seen by Provider: 05/25/23 04:54 Source: patient Mode of arrival: Wheelchair History of Present Illness HPI narrative: patient presents with chronic lower back pain. States last week she developed pain that radiated down her right leg. Was seen by her PCP and received injections that help. Did well until yesterday when the pain retuned and continues. Pain right buttocks down to her right foot. No injury. No loss of control of bowel or bladder. No fever. Pain similar to what she had last week Related Data Home Medications Medication Instructions Recorded Confirmed No Known Home Medications 05/25/23 05/25/23 Allergies Allergy/AdvReac Type Severity Reaction Status Date / Time sulfamethoxazole Allergy Verified 05/25/23 04:53 [From Bactrim] trimethoprim [From Bactrim] Allergy Verified 05/25/23 04:53 Review of Systems ROS Status of ROS 10 or more systems reviewed and unremarkable except as noted in history and below PFSH PFSH Social History Smoking status: Current every day smoker Exam Constitutional Vital Signs, click to edit/add: Last Vital Signs Temp 98.5 F 05/25/23 04:49 Pulse 85 05/25/23 04:49 Resp 22 05/25/23 04:49 BP 182/129 H 05/25/23 04:49 Pulse Ox 100 05/25/23 04:49 O2 Del Method Room Air 05/25/23 04:49 Common normals: oriented x3, alert and well nourished General appearance: in distress (mild distress) HENMT Common normals: normocephalic and head/scalp atraumatic Eye Common normals: EOMs intact bilaterally and conjunctivae normal Respiratory Common normals: normal respiratory effort, no retractions, no use of accessory muscles and clear to auscultation bilaterally Cardio Common normals: regular rate, regular rhythm, S1 normal heart sound and S2 normal heart sound GI Common normals: Normal to inspection, nondistended, normoactive bowel sounds present, soft to palpation and non-tender Extremity Common normals: normal to inspection and full ROM Neuro Common normals: oriented x3, CN's II-XII intact bilaterally, moves all extremities and no focal motor deficits Psych Appearance: grossly normal Course Vital Signs Vital signs: Vital Signs Temperature 98.5 F 05/25/23 04:49 Pulse Rate 85 05/25/23 04:49 Respiratory Rate 22 05/25/23 04:49 Blood Pressure 182/129 H 05/25/23 04:49 Pulse Oximetry 100 05/25/23 04:49 Oxygen Delivery Method Room Air 05/25/23 04:49 Temperature 98.5 F 05/25/23 04:49 Pulse Rate 85 05/25/23 04:49 Respiratory Rate 22 05/25/23 04:49 Blood Pressure 182/129 H 05/25/23 04:49 Pulse Oximetry 100 05/25/23 04:49 Oxygen Delivery Method Room Air 05/25/23 04:49 Medical Decision Making MDM Narrative Medical decision making narrative: patient has chronic lower back pain. Now presents with right sciatica pain. pain improved after intervention. Pain tolerable. Discharged home and advised to follow up with her family doctor Lab Data Labs: Lab Results 05/25/23 Range/Units 05:12 WBC 10.7 (4.0-11.0) 10^3/uL RBC 4.69 (4.20-5.40) 10^6/uL Hgb 13.4 (12.0-16.0) g/dL Hct 42.4 (36.0-48.0) % MCV 90.4 (81.0-99.0) fL MCH 28.6 (26.7-34.0) pg MCHC 31.6 (29.9-35.2) g/dL RDW 13.2 (11.0-15.0) % Plt Count 329 (150-450) 10^3/uL MPV 9.7 (9.5-13.5) fL Neut % (Auto) 75.8 H (43.0-75.0) % Lymph % (Auto) 16.9 L (20.5-60.0) % Gillespie % (Auto) 5.5 (1.7-12.0) % Eos % (Auto) 0.5 L (0.9-7.0) % Baso % (Auto) 0.8 (0.2-2.0) % Neut # (Auto) 8.1 H (1.4-6.5) 10^3/uL Lymph # (Auto) 1.8 (1.2-3.8) 10^3/uL Gillespie # (Auto) 0.6 (0.3-0.8) 10^3/uL Eos # (Auto) 0.1 (0.0-0.7) 10^3/uL Baso # (Auto) 0.1 (0.0-0.1) 10^3/uL Abs Immat Gran (auto) 0.05 H (0.00-0.03) 10^3/uL Imm/Tot Granulo (auto) 0.5 (0.0-0.5) % ESR 50 H (<=20) mm/hr Sodium 137 (136-145) mmol/L Potassium 4.1 (3.5-5.1) mmol/L Chloride 105 (98-107) mmol/L Carbon Dioxide 24.6 (21.0-32.0) mmol/L Anion Gap 11.5 BUN 16.0 (7.0-18.0) mg/dL Creatinine 0.84 (0.55-1.02) mg/dL Est GFR ( Amer) >60 (>=60) Est GFR (Non-Af Amer) >60 (>=60) BUN/Creatinine Ratio 19.0 Glucose 110 H (74-106) mg/dL Calcium 8.9 (8.5-10.1) mg/dL C-Reactive Protein 0.94 H (<=0.50) mg/dL Discharge Plan Discharge Chief Complaint: Extremity Problem, Nontraumatic Clinical Impression: Acute right-sided back pain with sciatica Patient Disposition: Home, Self-Care Prescriptions / Home Meds: No Action No Known Home Medications Instructions: Acute Low Back Pain (ED) Additional Instructions: call Dr Osullivan today to arrange followup Referrals: Shashi Osullivan MD [Primary Care Provider] - 1 week Stand Alone Forms: Portal Instructions
[2023-05-25 05:19] LABS: Basophils Absolute Auto 0.1 10^3/uL (0.0-0.1); Basophils Percent Auto 0.8 % (0.2-2.0); Eosinophils Absolute Auto 0.1 10^3/uL (0.0-0.7); Eosinophils Percent Auto 0.5 % (0.9-7.0); Hematocrit 42.4 % (36.0-48.0); Hemoglobin 13.4 g/dL (12.0-16.0); Immature Granulocytes Abs Auto 0.05 10^3/uL (0.00-0.03); Immature Granulocytes Pct Auto 0.5 % (0.0-0.5); Lymphocytes Absolute Auto 1.8 10^3/uL (1.2-3.8); Lymphocytes Percent Auto 16.9 % (20.5-60.0); Mean Corpuscular HGB Conc 31.6 g/dL (29.9-35.2); Mean Corpuscular Hemoglobin 28.6 pg (26.7-34.0); Mean Corpuscular Volume 90.4 fL (81.0-99.0); Mean Platelet Volume 9.7 fL (9.5-13.5); Monocytes Absolute Auto 0.6 10^3/uL (0.3-0.8); Monocytes Percent Auto 5.5 % (1.7-12.0); Neutrophils Absolute Auto 8.1 10^3/uL (1.4-6.5); Neutrophils Percent Auto 75.8 % (43.0-75.0); Platelet Count 329 10^3/uL (150-450); Red Blood Count 4.69 10^6/uL (4.20-5.40); Red Cell Distribution Width 13.2 % (11.0-15.0); White Blood Count 10.7 10^3/uL (4.0-11.0)
[2023-05-25 05:23] LABS: Erythrocyte Sedimentation Rate 50 mm/hr (<=20)
[2023-05-25 05:31] LABS: Anion Gap 11.5; C Reactive Protein 0.94 mg/dL (<=0.50); Calcium 8.9 mg/dL (8.5-10.1); Carbon Dioxide 24.6 mmol/L (21.0-32.0); Chloride 105 mmol/L (98-107); Estimated GFR (African America >60 (>=60); Estimated GFR (Non-African Ame >60 (>=60); Glucose 110 mg/dL (74-106); Potassium 4.1 mmol/L (3.5-5.1); Sodium 137 mmol/L (136-145)
[2023-05-25] MEDS: KETOROLAC TROMETHAMINE 30 MG/ML VIAL IVP (05:44)
[2023-05-25] MEDS: METHYLPREDNISOLONE SOD SUCC PF 125 MG/2 ML VIAL IVP (05:44)
[2023-05-25] MEDS: MAGNESIUM SULFATE IN WATER 2 GM/50 ML PREMIX IV (05:44)
--- OUTSIDE RECORDS SUMMARY | 2023-05-25 06:19 | XMS_ITS | CCD ---
Author Name Unknown Address [address] [place] [address] Organization [facility] Care Team Providers Care [employer] Name Role Phone JENNIFER VIVAR Attending Unavailable [...] Unavailable Ravin Mike M Primary Care Provider [phone] Rony Osullivanlas Primary Care Provider [phone] Mike Osullivan MD Primary Care Provider VADIM LOVELACE Referring Unavailable HOY, MIKE M Primary Care Unavailable HOY, MIKE Admitting Unavailable HOY, MIKE Attending Unavailable HOY, MIKE Primary Care Unavailable HOY, MIKE Admitting Unavailable HOY, MIKE Attending Unavailable HOY, MIKE Consulting Unavailable HOY, MIKE Primary Care Unavailable HOY, MIKE Admitting Unavailable HOY, MIKE Attending Unavailable HOY, MIKE Consulting Unavailable HOY, MIKE Primary Care Unavailable HOY, MIKE Admitting Unavailable HOY, IMKE Attending Unavailable HOY, MIKE Consulting Unavailable HOY, [...] docosanol; Translations: [Unknown] Drug Allergy 9 Swelling [facility] (1 source) docosanol Drug Allergy [facility] (1 source) Sulfamethoxazole / Trimethoprim Drug Allergy 0 [facility] Medications Current Medications Medication Drug [...] every week vitamin D (ERGOCALCIFEROL) 1.25 MG (15155 UT) CAPS capsule Take 1 capsule by [...] Starting Tue11/28/18 at 2353 polyethylene glycol 3350 [id number] mg powder for oral solution (1 source) [...] by Hitesh Norman on 05/13/2022 1439 Normal [facility] Covid-19 PCR ([facility])on 02-19 SARS-CoV-2 (COVID-19) RNA CLIFF+probe Ql (Unsp spec) Detected Critically abnormal NOT DETECTED [facility] Comment on above: Result Comment: This test is not yet approved or cleared by the [place] FDA. When there are no FDA-approved or cleared tests available, and other criteria are met, FDA can make tests available under an emergency access mechanism called an Emergency Use Authorization (EUA). The EUA for this test is supported by the [place] of Health and Human Service's declaration that [...] used). Performed By: #### C VDTB #### [facility] [address] [place] [address] Dr. Lilli Soriano INFLUENZA A AND B AGon 03-18 [facility] SEE BELOW Normal [facility] Comment on above: Result Comment: Nega tive for Flu A protein angiten. Infection due to Flu A cannot be ruled out. Flu A angiten in the sample may be below the detection limit of the test. Performed By: #### I NFLUAB #### [facility] [address] [place] [address] Dr. [address] [facility] [facility] Normal [facility] Comment on above: Result Comment: Nega tive for Flu B protein antigen. Infection due to Flu B cannot be ruled out. Flu B antigen in the sample may be below the detection limit of the test. Performed By: #### I NFLUAB #### [facility] [address] [place] [address] Dr. Lilli Soriano INFLUENZA A AG Negative Normal NEGATIVE SEE COMMENT [facility] Comment on above: Performed By: #### I NFLUAB #### [facility] [address] [place] [address] Dr. Lilli Soriano INFLUENZA B AG Negative Normal NEGATIVE SEE COMMENT [facility] Comment on above: Performed By: #### I NFLUAB #### [facility] [address] [address] [address] Lilli Soriano US Pelvic, Transvaginalon US [...] by Burton Mcdaniel on 12/24/2021 0958 Normal [facility] Covid-19 PCR ([facility])on 11-21 SARS-CoV-2 (COVID-19) RNA CLIFF+probe Ql (Unsp spec) Not detected Normal NOT DETECTED [facility] Comment on above: Result Comment: This test is not yet approved or cleared by the [place] FDA. When there are no FDA-approved or cleared tests available, and other criteria are met, FDA can make tests available under an emergency access mechanism called an Emergency Use Authorization (EUA). The EUA for this test is supported by the [place] of Health and Human Service's (HHS's) declaration [...] SARS-CoV-2. Performed By: #### C VDTBH #### [facility] [id number] Lilli Soriano VC VENOUS REFLUX GRACIELA LMTon 0 12-04-2021 VC VENOUS REFLUX GRACIELA LMT Patient: DEION CUMMINGS Exam Date: 12/04/2021 : 1995 Gender:F Ordering : DR MIKE OSULLIVAN . Admission #: [id number] Family : Order #: [id number] CLICK HERE TO VIEW EXAM RADIOLOGY REPORT [...] chronic thrombus visualized. Compressibility: Normal Flow: Normal Saw Grinder: Dist/med calf 2.1mm with 0s reflux. Dist/med [...] MD on 12/04/2021 at 09:37 Normal [facility] INSULINon 11-26-2021 Insulin 21.8 uIU/mL Normal 2.6-24.9 [facility] Comment on above: Performed By: #### I NSULIN #### [facility] [address] [address] [address] Lilli Soriano T4, T3U, FTI LABCORPon 11-26 Free Thyroxine Index 2.2 Normal 1.2-4.9 [facility] Comment on above: Performed By: #### B NEWS AGENT, TSH, LIPID, CMP #### [facility] [address] [address] [address] Lilli Soriano T3 Uptake 30 % Normal 24-39 [facility] Comment on above: Performed By: #### B NEWS AGENT, TSH, LIPID, CMP #### [facility] [address] [address] [address] Lilli Soriano T4 [Mass/Vol] 7.3 ug/dL Normal 4.5-12.0 [facility] Comment on above: Performed By: #### B NEWS AGENT, TSH, LIPID, CMP #### [facility] [address] [address] [address] Lilli Soriano BNPon 11-25-2021 Natriuretic peptide B (Bld) [Mass/Vol] 35.0 pg/mL Normal <=450.0 [facility] Comment on above: Performed By: #### B NEWS AGENT, TSH, LIPID, CMP #### [facility] [address] [place] [address] Dr. Lilli Soriano CBC AUTO DIFFon 11-25-2021 BASO # 0.0 103/ul Normal 0.0-0.1 [facility] Comment on above: Performed By: #### B NEWS AGENT, TSH, LIPID, CMP #### [facility] [address] [place] [address] Dr. Lilli Soriano Basophils/100 WBC (Bld) 0.5 % Normal 0.2-2.0 [facility] Comment on above: Performed By: #### B NEWS AGENT, TSH, LIPID, CMP #### [facility] [address] [place] [address] Dr. Lilli Soriano EO # 0.1 103/ul Normal 0.0-0.7 [facility] Comment on above: Performed By: #### B NEWS AGENT, TSH, LIPID, CMP #### [facility] [address] [place] [address] Dr. Lilli Soriano Eosinophils/100 WBC (Bld) 1.7 % Normal 0.9-7.0 [facility] Comment on above: Performed By: #### B NEWS AGENT, TSH, LIPID, CMP #### [facility] [address] [place] [address] Dr. Lilli Soriano Erythrocyte distribution width (RBC) [Ratio] 13.6 % Normal 11.0-15.0 [facility] Comment on above: Performed By: #### B NEWS AGENT, TSH, LIPID, CMP #### [facility] [address] [place] [address] Dr. Lilli Soriano Hematocrit (Bld) [Volume fraction] 42.6 % Normal 36.0-48.0 [facility] Comment on above: Performed By: #### B NEWS AGENT, TSH, LIPID, CMP #### [facility] [address] [place] [address] Dr. Lilli Soriano Hemoglobin (Bld) [Mass/Vol] 13.6 g/dL Normal 12.0-16.0 [facility] Comment on above: Performed By: #### B NEWS AGENT, TSH, LIPID, CMP #### [facility] [address] [place] [address] Dr. Lilli Soriano IG # 0.04 10e3/ul Critically high 0.00-0.03 [facility] Comment on above: Performed By: #### B NEWS AGENT, TSH, LIPID, CMP #### [facility] [address] [place] [address] Dr. Lilli Soriano IG % 0.5 % Normal 0.0-0.5 [facility] Comment on above: Performed By: #### B NEWS AGENT, TSH, LIPID, CMP #### [facility] [address] [place] [address] Dr. Lilli Soriano LYMPH # 1.7 103/ul Normal 1.2-3.8 [facility] Comment on above: Performed By: #### B NEWS AGENT, TSH, LIPID, CMP #### [facility] [address] [place] [address] Dr. Lilli Soriano Lymphocytes/100 WBC (Bld) 19.9 % Critically low 20.5-60.0 [facility] Comment on above: Performed By: #### B NEWS AGENT, TSH, LIPID, CMP #### [facility] [address] [place] [address] Dr. Lilli Soriano MANUAL DIFF REQ NO Normal [facility] Comment on above: Performed By: #### B NEWS AGENT, TSH, LIPID, CMP #### [facility] [address] [place] [address] Dr. Lilli Soriano MCH (RBC) [Entitic mass] 28.0 pg Normal 26.7-34.0 [facility] Comment on above: Performed By: #### B NEWS AGENT, TSH, LIPID, CMP #### [facility] [address] [place] [address] Dr. Lilli Soriano MCHC (RBC) [Mass/Vol] 31.9 g/dL Normal 29.9-35.2 [facility] Comment on above: Performed By: #### B NEWS AGENT, TSH, LIPID, CMP #### [facility] [address] [place] [address] Dr. Lilli Soriano MCV (RBC) [Entitic vol] 87.7 fL Normal 81.0-99.0 [facility] Comment on above: Performed By: #### B NEWS AGENT, TSH, LIPID, CMP #### [facility] [address] [place] [address] Dr. Lilli Soriano MONO # 0.5 103/ul Normal 0.3-0.8 [facility] Comment on above: Performed By: #### B NEWS AGENT, TSH, LIPID, CMP #### [facility] [address] [place] [address] Dr. Lilli Soriano Monocytes/100 WBC (Bld) 5.9 % Normal 1.7-12.0 [facility] Comment on above: Performed By: #### B NEWS AGENT, TSH, LIPID, CMP #### [facility] [address] [place] [address] Dr. Lilli Soriano NEUT # 6.1 103/ul Normal 1.4-6.5 [facility] Comment on above: Performed By: #### B NEWS AGENT, TSH, LIPID, CMP #### [facility] [address] [place] [address] Dr. Lilli Soriano Neutrophils/100 WBC (Bld) 71.5 % Normal 43.0-75.0 [facility] Comment on above: Performed By: #### B NEWS AGENT, TSH, LIPID, CMP #### [facility] [address] [place] [address] Dr. Lilli Soriano Platelet mean volume (Bld) [Entitic vol] 9.7 fL Normal 9.5-13.5 [facility] Comment on above: Performed By: #### B NEWS AGENT, TSH, LIPID, CMP #### [facility] [address] [place] [address] Dr. Lilli Soriano PLT 289 103/ul Normal 150-450 [facility] Comment on above: Performed By: #### B NEWS AGENT, TSH, LIPID, CMP #### [facility] [address] [place] [address] Dr. Lilli Soriano RBC 4.86 106/ul Normal 4.20-5.40 [facility] Comment on above: Performed By: #### B NEWS AGENT, TSH, LIPID, CMP #### [facility] [address] [place] [address] Dr. Lilli Soriano WBC 8.5 103/ul Normal 4.0-11.0 [facility] Comment on above: Performed By: #### B NEWS AGENT, TSH, LIPID, CMP #### [facility] [address] [place] [address] Dr. Lilli Soriano CULTURE URINEon 11-25-2021 CULTURE URINE Culture Observations : LIGHT GROWTH OF MIXED GENITAL CHICA. NO POTENTIAL PATHOGENS SEEN. Normal [facility] Comment on above: Performed By: #### B NEWS AGENT, TSH, LIPID, CMP #### [facility] [address] [place] [address] Dr. Lilli Soriano GLYCOHEMOGLOBIN A1Con 2021 ADA RECOMMENDATION SEE BELOW Normal [facility] Comment on above: Result Comment: ADA RECOMMENDED LIMIT 4.0 - 6.0 ADA THERAPEUTIC TARGET < 7.0 ACTION SUGGESTED > 7.0 Performed By: #### B NEWS AGENT, TSH, LIPID, CMP #### [facility] [address] [place] [address] Dr. Lilli Soriano Glucose [Mass/Vol] 108 mg/dL Normal [facility] Comment on above: Performed By: #### B NEWS AGENT, TSH, LIPID, CMP #### [facility] [address] [place] [address] Dr. Lilli Soriano HbA1c (Bld) [Mass fraction] 5.4 % Normal 4.5-6.2 [facility] Comment on above: Performed By: #### B NEWS AGENT, TSH, LIPID, CMP #### [facility] [address] [place] [address] Dr. Lilli Soriano IRONon 11-25-2021 Iron [Mass/Vol] 47.0 ug/dL Critically low 50.0-170.0 [facility] Comment on above: Performed By: #### B NEWS AGENT, TSH, LIPID, CMP #### [facility] [address] [address] [address] Lilli Soriano LIPID PROFILEon 11-25-2021 CHOL-HDL RATIO NORM SEE BELOW Normal [facility] Comment on above: Result Comment: 3.3 - 4.4 LOW RISK 4.4 - 7.1 AVERAGE RISK 7.1 - 11.0 MODERATE RISK >11.0 HIGH RISK Performed By: #### B NEWS AGENT, TSH, LIPID, CMP #### [facility] [address] [place] [address] Dr. Lilli Soriano Cholesterol [Mass/Vol] 153 mg/dL Normal <=200 [facility] Comment on above: Performed By: #### B NEWS AGENT, TSH, LIPID, CMP #### [facility] [address] [place] [address] Dr. Lilli Soriano Cholesterol in HDL [Mass/Vol] 56 mg/dL Normal 40-60 [facility] Comment on above: Performed By: #### B NEWS AGENT, TSH, LIPID, CMP #### [facility] [address] [place] [address] Dr. Lilli Soriano Cholesterol in LDL [Mass/Vol] 88.4 mg/dL Normal [facility] Comment on above: Performed By: #### B NEWS AGENT, TSH, LIPID, CMP #### [facility] [address] [place] [address] Dr. Lilli Soriano Cholesterol.total/Cho lesterol in HDL [Mass ratio] 2.7 {ratio} Normal [facility] Comment on above: Performed By: #### B NEWS AGENT, TSH, LIPID, CMP #### [facility] [address] [place] [address] Dr. Lilli Soriano HDL NORMAL > or = 60 mg/dl - LO W CARDIOVASCULAR RISK <40 mg/dl - HIGH CARDIOVASCULAR RISK Normal [facility] Comment on above: Performed By: #### B NEWS AGENT, TSH, LIPID, CMP #### [facility] [address] [place] [address] Dr. Lilli Soriano LDL CALC NORMAL SEE BELOW Normal [facility] Comment on above: Result Comment: <100 mg/dl OPTIMAL 100 - 129 mg/dl NEAR OR ABOVE OPTIMAL 130 - 159 mg/dl BORDERLINE HIGH 160 - 189 mg/dl HIGH >190 mg/dl VERY HIGH Performed By: #### B NEWS AGENT, TSH, LIPID, CMP #### [facility] [address] [address] [address] Lilli Soriano Triglyceride [Mass/Vol] 43 mg/dL Normal <=150 [facility] Comment on above: Performed By: #### B NEWS AGENT, TSH, LIPID, CMP #### [facility] [address] [address] [address] Lilli Soriano VLDL CALC 8.6 mg/dL Normal [facility] Comment on above: Performed By: #### B NEWS AGENT, TSH, LIPID, CMP #### [facility] [address] [address] [address] Lilli Soriano PROF 14(COMP METB)on 022 Albumin [Mass/Vol] 3.7 g/dL Normal 3.4-5.0 [facility] Comment on above: Performed By: #### B NEWS AGENT, TSH, LIPID, CMP #### [facility] [address] [place] [address] Dr. Lilli Soriano Albumin/Globulin [Mass ratio] 1.0 {ratio} Normal [facility] Comment on above: Performed By: #### B NEWS AGENT, TSH, LIPID, CMP #### [facility] [address] [place] [address] Dr. Lilli Soriano ALP [Catalytic activity/Vol] 58 U/L Normal 46-116 [facility] Comment on above: Performed By: #### B NEWS AGENT, TSH, LIPID, CMP #### [facility] [address] [place] [address] Dr. Lilli Soriano ALT [Catalytic activity/Vol] 30 U/L Normal 14-59 [facility] Comment on above: Performed By: #### B NEWS AGENT, TSH, LIPID, CMP #### [facility] [address] [place] [address] Dr. Lilli Soriano Anion gap [Moles/Vol] 9.9 mmol/L Normal [facility] Comment on above: Performed By: #### B NEWS AGENT, TSH, LIPID, CMP #### [facility] [address] [place] [address] Dr. Lilli Soriano AST [Catalytic activity/Vol] 10 U/L Critically low 15-37 [facility] Comment on above: Performed By: #### B NEWS AGENT, TSH, LIPID, CMP #### [facility] [address] [place] [address] Dr. Lilli Soriano Bilirubin [Mass/Vol] 0.4 mg/dL Normal 0.2-1.0 [facility] Comment on above: Performed By: #### B NEWS AGENT, TSH, LIPID, CMP #### [facility] [address] [place] [address] Dr. Lilli Soriano Calcium [Mass/Vol] 8.8 mg/dL Normal 8.5-10.1 [facility] Comment on above: Performed By: #### B NEWS AGENT, TSH, LIPID, CMP #### [facility] [address] [place] [address] Dr. Lilli Soriano Chloride [Moles/Vol] 102 mmol/L Normal 98-107 [facility] Comment on above: Performed By: #### B NEWS AGENT, TSH, LIPID, CMP #### [facility] [address] [place] [address] Dr. Lilli Soriano CO2 [Moles/Vol] 30.1 mmol/L Normal 21.0-32.0 [facility] Comment on above: Performed By: #### B NEWS AGENT, TSH, LIPID, CMP #### [facility] [address] [place] [address] Dr. Lilli Soriano Creatinine [Mass/Vol] 0.90 mg/dL Normal 0.55-1.02 [facility] Comment on above: Performed By: #### B NEWS AGENT, TSH, LIPID, CMP #### [facility] [address] [place] [address] Dr. Lilli Soriano EGFR-AF EAST [place]ORESE >60 Normal >=60 [facility] Comment on above: Performed By: #### B NEWS AGENT, TSH, LIPID, CMP #### [facility] [address] [place] [address] Dr. Lilli Soriano EGFR-NON AF EAST [place] >60 Normal >=60 [facility] Comment on above: Performed By: #### B NEWS AGENT, TSH, LIPID, CMP #### [facility] [address] [place] [address] Dr. Lilli Soriano Globulin (S) [Mass/Vol] 3.7 g/dL Normal [facility] Comment on above: Performed By: #### B NEWS AGENT, TSH, LIPID, CMP #### [facility] [address] [place] [address] Dr. Lilli Soriano Glucose [Mass/Vol] 96 mg/dL Normal 74-106 [facility] Comment on above: Performed By: #### B NEWS AGENT, TSH, LIPID, CMP #### [facility] [address] [place] [address] Dr. Lilli Soriano Potassium [Moles/Vol] 4.0 mmol/L Normal 3.5-5.1 [facility] Comment on above: Performed By: #### B NEWS AGENT, TSH, LIPID, CMP #### [facility] [address] [place] [address] Dr. Lilli Soriano Protein [Mass/Vol] 7.4 g/dL Normal 6.4-8.2 [facility] Comment on above: Performed By: #### B NEWS AGENT, TSH, LIPID, CMP #### [facility] [address] [place] [address] Dr. Lilli Soriano Sodium [Moles/Vol] 138 mmol/L Normal 136-145 [facility] Comment on above: Performed By: #### B NEWS AGENT, TSH, LIPID, CMP #### [facility] [address] [place] [address] Dr. Lilli Soriano Urea nitrogen [Mass/Vol] 12.0 mg/dL Normal 7.0-18.0 [facility] Comment on above: Performed By: #### B NEWS AGENT, TSH, LIPID, CMP #### [facility] [address] [place] [address] Dr. Lilli Soriano Urea nitrogen/Creatinine [Mass ratio] 13.3 mg/mg Normal [facility] Comment on above: Performed By: #### B NEWS AGENT, TSH, LIPID, CMP #### [facility] [address] [place] [address] Dr. Lilli Soriano TSHon 11-25-2021 TSH 1.196 uIU/mL Normal 0.358-3.740 [facility] Comment on above: Performed By: #### B NEWS AGENT, TSH, LIPID, CMP #### [facility] [address] [place] [address] Dr. Lilli Soriano UA RANDOM W/MICROSCOPICon BACTERIA TRACE Abnormal NONE SEEN [facility] Comment on above: Performed By: #### B NEWS AGENT, TSH, LIPID, CMP #### [facility] [address] [place] [address] Dr. Lilli Soriano Bilirubin Ql (U) Negative Normal NEGATIVE [facility] Comment on above: Performed By: #### B NEWS AGENT, TSH, LIPID, CMP #### [facility] [address] [place] [address] Dr. Lilli Soriano CAST NONE SEEN Normal NONE SEEN [facility] Comment on above: Performed By: #### B NEWS AGENT, TSH, LIPID, CMP #### [facility] [address] [place] [address] Dr. Lilli Soriano Clarity (U) CLEAR Normal CLEAR [facility] Comment on above: Performed By: #### B NEWS AGENT, TSH, LIPID, CMP #### [facility] [address] [place] [address] Dr. Lilli Soriano Color (U) LT. YELLOW Normal YELLOW [facility] Comment on above: Performed By: #### B NEWS AGENT, TSH, LIPID, CMP #### [facility] [address] [place] [address] Dr. Lilli Soriano Crystals LM Nom (Urine sed) NONE SEEN Normal NONE SEEN [facility] Comment on above: Performed By: #### B NEWS AGENT, TSH, LIPID, CMP #### [facility] [address] [place] [address] Dr. Lilli Soriano Epithelial cells LM Ql (Urine sed) MODERATE Abnormal NONE SEEN /RARE [facility] Comment on above: Performed By: #### B NEWS AGENT, TSH, LIPID, CMP #### [facility] [address] [place] [address] Dr. Lilli Soriano Glucose Ql (U) Negative Normal NEGATIVE [facility] Comment on above: Performed By: #### B NEWS AGENT, TSH, LIPID, CMP #### [facility] [address] [address] [address] Lilli Soriano Hemoglobin Ql (U) Negative Normal [facility] Comment on above: Performed By: #### B NEWS AGENT, TSH, LIPID, CMP #### [facility] [address] [address] [address] Lilli Soriano Ketones Ql (U) Negative Normal NEGATIVE [facility] Comment on above: Performed By: #### B NEWS AGENT, TSH, LIPID, CMP #### [facility] [address] [address] [address] Lilli Soriano LEUKOCYTES Negative Normal NEGATIVE [facility] Comment on above: Performed By: #### B NEWS AGENT, TSH, LIPID, CMP #### [facility] [address] [place] [address] Dr. Lilli Soriano MUCOUS NONE SEEN Normal NONE SEEN [facility] Comment on above: Performed By: #### B NEWS AGENT, TSH, LIPID, CMP #### [facility] [address] [place] [address] Dr. Lilli Soriano Nitrite Ql (U) Negative Normal NEGATIVE [facility] Comment on above: Performed By: #### B NEWS AGENT, TSH, LIPID, CMP #### [facility] [address] [place] [address] Dr. Lilli Soriano pH (U) 7.0 [pH] Normal 5-9 [facility] Comment on above: Performed By: #### B NEWS AGENT, TSH, LIPID, CMP #### [facility] [address] [place] [address] Dr. Lilli Soriano RBC 0-2 Normal 0-2 [facility] Comment on above: Performed By: #### B NEWS AGENT, TSH, LIPID, CMP #### [facility] [address] [place] [address] Dr. Lilli Soriano SPEC GRAVITY 1.010 Normal 1.005-<=1.02 5 [facility] Comment on above: Performed By: #### B NEWS AGENT, TSH, LIPID, CMP #### [facility] [address] [address] [address] Lilli Soriano UA PROTEIN Negative Normal NEGATIVE/ TRACE [facility] Comment on above: Performed By: #### B NEWS AGENT, TSH, LIPID, CMP #### [facility] [address] [address] [address] Lilli Soriano Urobilinogen Qn (U) 0.2 {Macho'U}/dL Normal 0.2 - 1. 0 [facility] Comment on above: Performed By: #### B NEWS AGENT, TSH, LIPID, CMP #### [facility] [address] [address] [address] Lilli Soriano WBC NONE SEEN Normal NONE SEEN [facility] Comment on above: Performed By: #### B NEWS AGENT, TSH, LIPID, CMP #### [facility] [address] [address] [address] Lilli Soriano URon 09-19-2021 , QUAL Negative Normal NEGATIVE [facility] Comment on above: Performed By: #### B NEWS AGENT, TSH, LIPID, CMP #### [facility] [address] [address] [address] Lilli Soriano XR LSPINE 2_3 VIEWSon [...] ADALID ANA Date: 2021-09-19 12:59 Normal [facility] Covid-19 PCR (CVDTB)on 07-19 SARS-CoV-2 (COVID-19) RNA CLIFF+probe Ql (Unsp spec) Not detected Normal NOT DETECTED [facility] Comment on above: Result Comment: This test is not yet approved or cleared by the [place] FDA. When there are no FDA-approved or cleared tests available, and other criteria are met, FDA can make tests available under an emergency access mechanism called an Emergency Use Authorization (EUA). The EUA for this test is supported by the [place] of Health and Human Service's (HHS's) declaration [...] SARS-CoV-2. Performed By: #### C VDTB #### [facility] [address] [place] [address] Dr. Lilli Soriano INFLUENZA A AND B [facility] 07-30 [facility] SEE BELOW Normal [facility] Comment on above: Result Comment: Nega tive for Flu A protein angiten. Infection due to Flu A cannot be ruled out. Flu A angiten in the sample may be below the detection limit of the test. Performed By: #### I NFLUAB #### [facility] [address] [place] [address] Dr[address] [facility] Normal [facility] Comment on above: Result Comment: Nega tive for Flu B protein antigen. Infection due to Flu B cannot be ruled out. Flu B antigen in the sample may be below the detection limit of the test. Performed By: #### I NFLUAB #### [facility] [address] [place] [address] Dr. Lilli Soriano INFLUENZA A AG Negative Normal NEGATIVE SEE COMMENT [facility] Comment on above: Performed By: #### I NFLUAB #### [facility] [address] [place] [address] Dr. Lilli Soriano INFLUENZA B AG Negative Normal NEGATIVE SEE COMMENT [facility] Comment on above: Performed By: #### I NFLUAB #### [facility] [address] [place], [place] [address] Dr. Lilli Soriano INTERNAL CONTROLS Within Normal Limits Normal Wi thin Normal Limits [facility] Comment on above: Performed By: #### I NFLUAB #### [facility] [address] [place], [place] [address] Dr. Lilli Soriano HCG, Quanton 04-29-2021 HCG, Quant <1 Normal <5 [facility] Comment on above: Result Comment: Non-preg [...] liver. Performed By: #### B HCG #### [facility] [address] [place], [place] [id number] Tile Molder: Geo Mar MD hCG, Quantitative, on 04-29-2021 hCG Quant <1 <5 IU/L [facility] Comment on above: Non-preg premeno <=5 Postmeno <=8 Male <=3 If HCG results do not concur with clinical observations, additional testing to confirm results is recommended. Elevated results not associated with may be found in patients with other diseases such as tumors of the germ cells (testis, ovaries, etc.), bladder, pancreas, stomach, lungs, and liver. [facility] CBC Auto Differentialon 03-21 Basophils (Bld) [#/Vol] 0.04 10*3/uL [place] Basophils/100 WBC (Bld) 1 % 0 - 2 % [place] Differential Type NOT REPORTED [place] Eosinophils (Bld) [#/Vol] 0.15 10*3/uL [place] Eosinophils/100 WBC (Bld) 2 % 1 - 4 % [place] Erythrocyte distribution width (RBC) [Ratio] 12.9 % 11.8 - 14.4 % [place] Hematocrit (Bld) [Volume fraction] 44.6 % 36.3 - 47.1 % [place] Hemoglobin (Bld) [Mass/Vol] 14.6 g/dL 11.9 - 15.1 g/dL [place] Immature granulocytes (Bld) [#/Vol] 0.05 10*3/uL [place] Immature granulocytes (Bld) [#/Vol] 1 % High 0 [place] Interpretation and review of laboratory results Abnormal [place] Lymphocytes (Bld) [#/Vol] 1.70 10*3/uL [place] Lymphocytes/100 WBC (Bld) 21 % Low 24 - 43 % [place] MCH (RBC) [Entitic mass] 28.1 pg 25.2 - 33.5 pg [place] MCHC (RBC) [Mass/Vol] 32.7 g/dL 28.4 - 34.8 g/dL [place] MCV (RBC) [Entitic vol] 85.8 fL 82.6 - 102.9 fL [place] Monocytes (Bld) [#/Vol] 0.54 10*3/uL [place] Monocytes/100 WBC (Bld) 7 % 3 - 12 % [place] Platelet mean volume (Bld) [Entitic vol] 10.7 fL 8.1 - 13.5 fL [place] Platelets (Bld) [#/Vol] NOT REPORTED [place] Platelets (Bld) [#/Vol] 337 10*3/uL [place] RBC (Bld) [#/Vol] 5.20 10*6/uL High 3.95 - 5.1 1 m/uL [place] RBC morphology finding Nom (Bld) NOT REPORTED [place] Segmented neutrophils/100 WBC (Bld) 68 % High 36 - 65 % [place] Segs Absolute 5.83 [place] WBC (Bld) [#/Vol] 8.3 10*3/uL [place] WBC (Bld) [#/Vol] 0.0 10*3/uL 0.0 per 10 0 WBC [place] WBC Morphology NOT REPORTED [place] Comprehensive Metabolic Pane jani 04-08-2020 Albumin [Mass/Vol] 4 g/dL 3.5 - 5.2 g/dL [place] Albumin/Globulin [Mass ratio] 1.7 {ratio} [place] ALP [Catalytic activity/Vol] 66 U/L 35 - 104 U/L [place] ALT [Catalytic activity/Vol] 16 U/L 5 - 33 U/L [place] Anion gap [Moles/Vol] 11 mmol/L 9 - 17 mmol/L [place] AST [Catalytic activity/Vol] 13 U/L <32 [place] Bilirubin Ql (U) 0.28 mg/dL Low 0.3 - 1.2 mg/dL [place] Bun/Cre Ratio NOT REPORTED [place] Calcium [Mass/Vol] 9.1 mg/dL 8.6 - 10. 4 mg/dL [place] Chloride [Moles/Vol] 103 mmol/L 98 - 10 7 mmol/L [place] CO2 [Moles/Vol] 21 mmol/L 20 - 31 mmol/L [place] Creatinine [Mass/Vol] 0.78 mg/dL 0.5 - 0.9 mg/dL [place] GFR >60 >60 mL/min [place] GFR Non- >60 >60 mL/min [place] GFR/1.73 sq M predicted among non-blacks MDRD (S/P/Bld) [Vol rate/Area] [place] Comment on above: Average GFR for 20-2 9 years old: 116 mL/min/1.73sq m Chronic Kidney Disease: <60 mL/min/1.73sq m Kidney failure: <15 mL/min/1.73sq m eGFR calculated using average adult body mass. Additional eGFR calculator available at: http://www.[employer].FlowPay/multiple_crcl_2011.htm GFR/1.73 sq M predicted among non-blacks MDRD (S/P/Bld) [Vol rate/Area] NOT REPORTED [place] Glucose [Mass/Vol] 97 mg/dL 70 - 99 mg/dL [place] Interpretation and review of laboratory results Abnormal [place] Potassium [Moles/Vol] 4.4 mmol/L 3.7 - 5.3 mmol/L [place] Protein [Mass/Vol] 6.4 g/dL 6.4 - 8.3 g/dL [place] Sodium [Moles/Vol] 135 mmol/L 135 - 144 mmol/L [place] Urea nitrogen [Mass/Vol] 12 mg/dL 6 - 20 mg/dL [place] Hemoglobin A1Con 04-08-2020 Glucose [Mass/Vol] 111 mg/dL [place] Comment on above: The ADA and AACC rec ommend providing the estimated average glucose result to permit better patient understanding of their HBA1c result. HbA1c (Bld) [Mass fraction] 5.5 % 4 - 6 % [place] Insulin, totalon 04-08-2020 INR Coag (Bld) [Relative time] [place] Comment on above: Fastin.6-24.9 30 min: 20-112 60 min: 29-88 90 min: 26-84 120 min: 22-79 Insulin 27.4 mU/L [place] Insulin Comment NOT REPORTED [place] T3on 04-08-2020 T3, Total 97 ng/dL 60 - 181 ng/dL [place] T3, Uptakeon 04-08-2020 Interpretation and review of laboratory results Abnormal [place] T4 [Mass/Vol] 37.23 % High 22.5 - 37 % [place] T4on 04-08-2020 T4, Total 6.4 ug/dL 4.5 - 10.9 ug/dL [place] TSH without Reflexon 021 TSH Qn 1.39 m[IU]/L [place] Cult, Bloodon 12-04-2018 Cult, Blood Specimen Description .BLOOD Special Requests RAC 10ML Culture NO GROWTH 5 DAYS Report Status FINAL 12/04/2018 [facility] Comment on above: Performed By: #### T OXOM, HSVG12, CMVM, FA2, MATIAS, TOXOG, HSVM12, CMVG, FA5 #### [address] [address] Tile Molder: Geo Mar MD #### CBC, FIB #### [address] [place], [place] [id number] Tile Molder: Mario Anne MD #### APROTS, APARVP, APROTC, ARUBGM #### [facility] [address] [place] [address] Tile Molder: Fernando Valencia MD #### LUPPRO #### [address] [address] Tile Molder: Geo Mar MD [address] [place] [address] Tile Molder: Mario Anne MD Cult,Bloodon 12-03-2018 Cult,Blood Specimen Description .BLOOD Special Requests LAC 20 ML Culture NO GROWTH 5 DAYS Report Status FINAL 12/03/2018 [facility] Comment on above: Performed By: #### T OXOM, HSVG12, CMVM, FA2, MATIAS, TOXOG, HSVM12, CMVG, FA5 #### [address] [address] Tile Molder: Geo Mar MD #### CBC, FIB #### [address] [place] [address] Tile Molder: Mario Anne MD #### APROTS, APARVP, APROTC, ARUBGM #### [facility] [address] [place] [address] Tile Molder: Fernando Valencia MD #### LUPPRO #### [address] [address] Tile Molder: Geo Mar MD [address] [place] [phone] Tile Molder: Mario Anne MD CBCon 11-30-2018 Erythrocyte distribution width (RBC) [Ratio] 13.4 % Normal 11.8-14.4 [facility] Comment on above: Performed By: #### T OXOM, HSVG12, CMVM, FA2, MATIAS, TOXOG, HSVM12, CMVG, FA5 #### [address] [address] Tile Molder: Geo Mar MD #### CBC, FIB #### [address] [place] [phone] Tile Molder: Mario Anne MD #### APROTS, APARVP, APROTC, ARUBGM #### [facility] [address] [place] [address] Tile Molder: Fernando Valencia MD #### LUPPRO #### [address] [address] Tile Molder: Geo Mar MD [address] [place] [phone] Tile Molder: Mario Anne MD Hematocrit (Bld) [Volume fraction] 26.6 % Low 36.3-47.1 [facility] Comment on above: Performed By: #### T OXOM, HSVG12, CMVM, FA2, MATIAS, TOXOG, HSVM12, CMVG, FA5 #### [address] [address] Tile Molder: Geo Mar MD #### CBC, FIB #### [address] [place] [address] Tile Molder: Mario Anne MD #### APROTS, APARVP, APROTC, ARUBGM #### [facility] [address] [place] [address] Tile Molder: Fernando Valencia MD #### LUPPRO #### [address] [address] Tile Molder: Geo Mar MD [address] [place] [phone] Tile Molder: Mario Anne MD Hemoglobin (Bld) [Mass/Vol] 8.1 g/dL Low 11.9-15.1 [facility] Comment on above: Performed By: #### T OXOM, HSVG12, CMVM, FA2, MATIAS, TOXOG, HSVM12, CMVG, FA5 #### [address] [address] Tile Molder: Geo Mar MD #### CBC, FIB #### [address] [place] [address] Tile Molder: Mario Anne MD #### APROTS, APARVP, APROTC, ARUBGM #### [facility] [address] [place], [place] [id number] Tile Molder: Fernando Valencia MD #### LUPPRO #### [address] [address] Tile Molder: Geo Mar MD [address] [place] [phone] Tile Molder: Mario Anne MD MCH (RBC) [Entitic mass] 27.2 pg Normal 25.2-33.5 [facility] Comment on above: Performed By: #### T OXOM, HSVG12, CMVM, FA2, MATIAS, TOXOG, HSVM12, CMVG, FA5 #### [address] [address] Tile Molder: Geo Mar MD #### CBC, FIB #### [address] [place], [place] [id number] Tile Molder: Mario Anne MD #### APROTS, APARVP, APROTC, ARUBGM #### [facility] [address] [place] [address] Tile Molder: Fernando Valencia MD #### LUPPRO #### [address] [address] Tile Molder: Geo Mar MD [address] [place] [address] Tile Molder: Mario Anne MD MCHC (RBC) [Mass/Vol] 30.5 g/dL Normal 28.4-34.8 [facility] Comment on above: Performed By: #### T OXOM, HSVG12, CMVM, FA2, MATIAS, TOXOG, HSVM12, CMVG, FA5 #### [address] [address] Tile Molder: Geo Mar MD #### CBC, FIB #### [address] [place], [place] [id number] Tile Molder: Mario Anne MD #### APROTS, APARVP, APROTC, ARUBGM #### [facility] [address] [place], [place] [id number] Tile Molder: Fernando Valencia MD #### LUPPRO #### [address] [address] Tile Molder: Geo Mar MD [address] [place], [place] [address] Tile Molder: Mario Anne MD MCV (RBC) [Entitic vol] 89.3 fL Normal 82.6-102.9 [facility] Comment on above: Performed By: #### T OXOM, HSVG12, CMVM, FA2, MATIAS, TOXOG, HSVM12, CMVG, FA5 #### [address] [address] Tile Molder: Geo Mar MD #### CBC, FIB #### [address] [place] [address] Tile Molder: Mario Anne MD #### APROTS, APARVP, APROTC, ARUBGM #### [facility] [address] [place] [address] Tile Molder: Fernando Valencia MD #### LUPPRO #### [address] [address] Tile Molder: Geo Mar MD [address] [place] [phone] Tile Molder: Mario Anne MD NRBC Automated 0.0 per 100 WBC Normal 0.0 [facility] Comment on above: Performed By: #### T OXOM, HSVG12, CMVM, FA2, MATIAS, TOXOG, HSVM12, CMVG, FA5 #### [address] [address] Tile Molder: Geo Mar MD #### CBC, FIB #### [address] [place] [phone] Tile Molder: Mario Anne MD #### APROTS, APARVP, APROTC, ARUBGM #### [facility] [address] [place] [address] Tile Molder: Fernando Valencia MD #### LUPPRO #### [address] [address] Tile Molder: Geo Mar MD [address] [place] [phone] Tile Molder: Mario Anne MD Platelet mean volume (Bld) [Entitic vol] 10.0 fL Normal 8.1-13.5 [facility] Comment on above: Performed By: #### T OXOM, HSVG12, CMVM, FA2, MATIAS, TOXOG, HSVM12, CMVG, FA5 #### [address] [address] Tile Molder: Geo Mar MD #### CBC, FIB #### [address] [place], [place] [id number] Tile Molder: Mario Anne MD #### APROTS, APARVP, APROTC, ARUBGM #### [facility] [address] [place], [place] [id number] Tile Molder: Fernando Valencia MD #### LUPPRO #### [address] [address] Tile Molder: Geo Mar MD [address] [place] [phone] Tile Molder: Mario Anne MD Platelets (Bld) [#/Vol] 255 10*3/uL Normal 138-453 [facility] Comment on above: Performed By: #### T OXOM, HSVG12, CMVM, FA2, MATIAS, TOXOG, HSVM12, CMVG, FA5 #### [address] [address] Tile Molder: Geo Mar MD #### CBC, FIB #### [address] [place] [phone] Tile Molder: Mario Anne MD #### APROTS, APARVP, APROTC, ARUBGM #### [facility] [address] [place], [place] [id number] Tile Molder: Fernando Valencia MD #### LUPPRO #### [address] [address] Tile Molder: Geo Mar MD [address] [place] [phone] Tile Molder: Mario Anne MD RBC (Bld) [#/Vol] 2.98 10*6/uL Low 3.95-5.11 [facility] Comment on above: Performed By: #### T OXOM, HSVG12, CMVM, FA2, MATIAS, TOXOG, HSVM12, CMVG, FA5 #### [facility] [address] [place] [address] Tile Molder: Geo Mar MD #### CBC, FIB #### [address] [place] [phone] Tile Molder: Mario Anne MD #### APROTS, APARVP, APROTC, ARUBGM #### [facility] [address] [place] [address] Tile Molder: Fernando Valencia MD #### LUPPRO #### [address] [address] Tile Molder: Geo Mar MD [address] [place] [phone] Tile Molder: Mario Anne MD WBC (Bld) [#/Vol] 6.3 10*3/uL Normal 3.5-11.3 [facility] Comment on above: Performed By: #### T OXOM, HSVG12, CMVM, FA2, MATIAS, TOXOG, HSVM12, CMVG, FA5 #### [address] [address] Tile Molder: Geo Mar MD #### CBC, FIB #### [address] [place], [place] [phone] Tile Molder: Mario Anne MD #### APROTS, APARVP, APROTC, ARUBGM #### [facility] [address] [place] [address] Tile Molder: Fernando Valencia MD #### LUPPRO #### [facility] [address] [place], [place] [id number] Tile Molder: Geo Mar MD [facility] [address] [place] [address] Tile Molder: Mario Anne MD Erythrocyte distribution width (RBC) [Ratio] 13.4 % 11.8 - 14.4 % [place] Hematocrit (Bld) [Volume fraction] 26.6 % Low 36.3 - 47.1 % [place] Hemoglobin (Bld) [Mass/Vol] 8.1 g/dL Low 11.9 - 15.1 g/dL [place] Interpretation and review of laboratory results Abnormal [place] MCH (RBC) [Entitic mass] 27.2 pg 25.2 - 33.5 pg [place] MCHC (RBC) [Mass/Vol] 30.5 g/dL 28.4 - 34.8 g/dL [place] MCV (RBC) [Entitic vol] 89.3 fL 82.6 - 102.9 fL [place] Platelet mean volume (Bld) [Entitic vol] 10.0 fL 8.1 - 13.5 fL [place] Platelets (Bld) [#/Vol] 255 10*3/uL [place] RBC (Bld) [#/Vol] 2.98 10*6/uL Low 3.95 - 5.1 1 m/uL [place] WBC (Bld) [#/Vol] 6.3 10*3/uL [place] WBC (Bld) [#/Vol] 0.0 10*3/uL 0.0 per 10 0 WBC [place] Comp Metabolic Pr/rfx MGon 0 11-30-2018 (cont.) Normal [facility] Comment on above: Result Comment: Aver age GFR for 20-29 years old: 116 mL/min/1.73sq m Chronic Kidney Disease: <60 mL/min/1.73sq m Kidney failure: <15 mL/min/1.73sq m eGFR calculated using average adult body mass. Additional eGFR calculator available at: http://www.[employer]/multiple_crcl_2012.htm Performed By: #### T OXOM, HSVG12, CMVM, FA2, MATIAS, TOXOG, HSVM12, CMVG, FA5 #### [facility] [address] [place] [address] Tile Molder: Geo Mar MD #### CBC, FIB #### [address] [place] [address] Tile Molder: Mario Anne MD #### APROTS, APARVP, APROTC, ARUBGM #### [facility] [address] [place], [place] [id number] Tile Molder: Fernando Valencia MD #### LUPPRO #### [address] [address] Tile Molder: Geo Mar MD [address] [place] [address] Tile Molder: Mario Anne MD Albumin [Mass/Vol] 2.9 g/dL Low 3.5-5.2 [facility] Comment on above: Performed By: #### T OXOM, HSVG12, CMVM, FA2, MATIAS, TOXOG, HSVM12, CMVG, FA5 #### [address] [address] Tile Molder: Geo Mar MD #### CBC, FIB #### [address] [place] [address] Tile Molder: Mario Anne MD #### APROTS, APARVP, APROTC, ARUBGM #### [facility] [address] [place], [place] [id number] Tile Molder: Fernando Valencia MD #### LUPPRO #### [address] [address] Tile Molder: Geo Mar MD [address] [place], [place] [phone] Tile Molder: Mario Anne MD Albumin/Globulin [Mass ratio] 1.1 {ratio} Normal 1.0-2.5 [facility] Comment on above: Performed By: #### T OXOM, HSVG12, CMVM, FA2, MATIAS, TOXOG, HSVM12, CMVG, FA5 #### [address] [address] Tile Molder: Geo Mar MD #### CBC, FIB #### [address] [place] [phone] Tile Molder: Mario Anne MD #### APROTS, APARVP, APROTC, ARUBGM #### [facility] [address] [place], [place] [id number] Tile Molder: Fernando Valencia MD #### LUPPRO #### [address] [address] Tile Molder: Geo Mar MD [address] [place] [phone] Tile Molder: Mario Anne MD Alkaline Phos 41 U/L Normal 35-104 [facility] Comment on above: Performed By: #### T OXOM, HSVG12, CMVM, FA2, MATIAS, TOXOG, HSVM12, CMVG, FA5 #### [address] [address] Tile Molder: Geo Mar MD #### CBC, FIB #### [address] [place] [address] Tile Molder: Mario Anne MD #### APROTS, APARVP, APROTC, ARUBGM #### [facility] [address] [place] [address] Tile Molder: Frenando Valencia MD #### LUPPRO #### [address] [address] Tile Molder: Geo Mar MD [address] [place], [place] [phone] Tile Molder: Mario Anne MD ALT [Catalytic activity/Vol] 17 U/L Normal 5-33 [facility] Comment on above: Performed By: #### T OXOM, HSVG12, CMVM, FA2, MATIAS, TOXOG, HSVM12, CMVG, FA5 #### [address] [address] Tile Molder: Geo Mar MD #### CBC, FIB #### [address] [place], [place] [phone] Tile Molder: Mario Anne MD #### APROTS, APARVP, APROTC, ARUBGM #### [facility] [address] [place] [address] Tile Molder: Fernando Valencia MD #### LUPPRO #### [address] [phone] Tile Molder: Geo Mar MD [address] [place], [place] [phone] Tile Molder: Mario Anne MD Anion gap [Moles/Vol] 14 mmol/L Normal 9-17 [facility] Comment on above: Performed By: #### T OXOM, HSVG12, CMVM, FA2, MATIAS, TOXOG, HSVM12, CMVG, FA5 #### [address] [address] Tile Molder: Geo Mar MD #### CBC, FIB #### [address] [place], [place] [phone] Tile Molder: Mario Anne MD #### APROTS, APARVP, APROTC, ARUBGM #### [facility] [address] [place] [address] Tile Molder: Fernando Valencia MD #### LUPPRO #### [address] [address] Tile Molder: Geo Mar MD [address] [place] [address] Tile Molder: Mario Anne MD AST [Catalytic activity/Vol] 14 U/L Normal <32 [facility] Comment on above: Performed By: #### T OXOM, HSVG12, CMVM, FA2, MATIAS, TOXOG, HSVM12, CMVG, FA5 #### [address] [address] Tile Molder: Geo Mar MD #### CBC, FIB #### [address] [place], [place] [phone] Tile Molder: Mario Anne MD #### APROTS, APARVP, APROTC, ARUBGM #### [facility] [address] [place] [address] Tile Molder: Fernando Valencia MD #### LUPPRO #### [address] [address] Tile Molder: Geo Mar MD [address] [place], [place] [phone] Tile Molder: Mario Anne MD Bilirubin Ql (U) 0.16 mg/dL Low 0.3-1.2 [facility] Comment on above: Performed By: #### T OXOM, HSVG12, CMVM, FA2, MATIAS, TOXOG, HSVM12, CMVG, FA5 #### [address] [address] Tile Molder: Geo Mar MD #### CBC, FIB #### [address] [place], [place] [id number] Tile Molder: Mario Anne MD #### APROTS, APARVP, APROTC, ARUBGM #### [facility] [address] [place] [address] Tile Molder: Fernando Valencia MD #### LUPPRO #### [address] [address] Tile Molder: Geo Mar MD [address] [place], [place] [phone] Tile Molder: Mario Anne MD BUN/CRE Ratio 8 Low 9-20 [facility] Comment on above: Performed By: #### T OXOM, HSVG12, CMVM, FA2, MATIAS, TOXOG, HSVM12, CMVG, FA5 #### [address] [address] Tile Molder: Geo Mar MD #### CBC, FIB #### [address] [place], [place] 516[address]83 Tile Molder: Mario Anne MD #### APROTS, APARVP, APROTC, ARUBGM #### [facility] [address] [place] [address] Tile Molder: Fernando Valencia MD #### LUPPRO #### [address] [id number] Tile Molder: Geo Mar MD [address] [place], [place] [address] Tile Molder: Mario Anne MD Calcium [Mass/Vol] 8.4 mg/dL Low 8.6-10.4 [facility] Comment on above: Performed By: #### T OXOM, HSVG12, CMVM, FA2, MATIAS, TOXOG, HSVM12, CMVG, FA5 #### [address] [address] Tile Molder: Geo Mar MD #### CBC, FIB #### [address] [place], [place] 480[address]83 Tile Molder: Mario Anne MD #### APROTS, APARVP, APROTC, ARUBGM #### [facility] [address] [place] [address] Tile Molder: Fernando Valencia MD #### LUPPRO #### [address] [address] Tile Molder: Geo Mar MD [address] [place] [address] Tile Molder: Mario Anne MD Chloride [Moles/Vol] 105 mmol/L Normal 98-107 [facility] Comment on above: Performed By: #### T OXOM, HSVG12, CMVM, FA2, MATIAS, TOXOG, HSVM12, CMVG, FA5 #### [address] [address] Tile Molder: Geo Mar MD #### CBC, FIB #### [address] [address] [place], [place] [id number] Tile Molder: Mario Anne MD #### APROTS, APARVP, APROTC, ARUBGM #### [facility] [address] [place] [address] Tile Molder: Fernando Valencia MD #### LUPPRO #### [address] [address] Tile Molder: Geo Mar MD [address] [place] [address] Tile Molder: Mario Anne MD CO2 [Moles/Vol] 20 mmol/L Normal 20-31 [facility] Comment on above: Performed By: #### T OXOM, HSVG12, CMVM, FA2, MATIAS, TOXOG, HSVM12, CMVG, FA5 #### [address] [address] Tile Molder: Geo Mar MD #### CBC, FIB #### [address] [place] [address] Tile Molder: Mario Anne MD #### APROTS, APARVP, APROTC, ARUBGM #### [facility] [address] [place], [place] [id number] Tile Molder: Fernando Valencia MD #### LUPPRO #### [address] [id number] Tile Molder: Geo Mar MD [address] [place] [address] Tile Molder: Mario Anne MD Creatinine [Mass/Vol] 0.88 mg/dL Normal 0.50-0.90 [facility] Comment on above: Performed By: #### T OXOM, HSVG12, CMVM, FA2, MATIAS, TOXOG, HSVM12, CMVG, FA5 #### [address] [address] Tile Molder: Geo Mar MD #### CBC, FIB #### [address] [place] [address] Tile Molder: Mario Anne MD #### APROTS, APARVP, APROTC, ARUBGM #### [facility] [address] [place], [place] [id number] Tile Molder: Fernando Valencia MD #### LUPPRO #### [address] [address] Tile Molder: Geo Mar MD [address] [place], [place] [id number] Tile Molder: Mario Anne MD GFR, Amer >60 Normal >60 [facility] Comment on above: Performed By: #### T OXOM, HSVG12, CMVM, FA2, MATIAS, TOXOG, HSVM12, CMVG, FA5 #### [address] [address] Tile Molder: Geo Mar MD #### CBC, FIB #### [address] [place], [place] [id number] Tile Molder: Mario Anne MD #### APROTS, APARVP, APROTC, ARUBGM #### [facility] [address] [place] [address] Tile Molder: Fernando Valencia MD #### LUPPRO #### [address] [address] Tile Molder: Geo Mar MD [address] [place], [place] [id number] Tile Molder: Mario Anne MD GFR,non Amer >60 Normal >60 [facility] Comment on above: Performed By: #### T OXOM, HSVG12, CMVM, FA2, MATIAS, TOXOG, HSVM12, CMVG, FA5 #### [address] [address] Tile Molder: Geo Mar MD #### CBC, FIB #### [facility] [address] [place] [address] [place], [place] [id number] Tile Molder: Mario Anne MD #### APROTS, APARVP, APROTC, ARUBGM #### [facility] [address] [place] [address] Tile Molder: Fernando Valencia MD #### LUPPRO #### [address] [address] Tile Molder: Geo Mar MD [address] [place], [place] [phone] Tile Molder: Mario Anne MD Glucose [Mass/Vol] 123 mg/dL High 70-99 [facility] Comment on above: Performed By: #### T OXOM, HSVG12, CMVM, FA2, MATIAS, TOXOG, HSVM12, CMVG, FA5 #### [address] [address] Tile Molder: Geo Mar MD #### CBC, FIB #### [address] [place], [place] [address]25[address]83 Tile Molder: Mario Anne MD #### APROTS, APARVP, APROTC, ARUBGM #### [facility] [address] [place] [address] Tile Molder: Fernando Valencia MD #### LUPPRO #### [address] [address] Tile Molder: Geo Mar MD [address] [place], [place] [address] Tile Molder: Mario Anne MD Potassium [Moles/Vol] 3.7 mmol/L Normal 3.7-5.3 [facility] Comment on above: Performed By: #### T OXOM, HSVG12, CMVM, FA2, MATIAS, TOXOG, HSVM12, CMVG, FA5 #### [address] [address] Tile Molder: Geo Mar MD #### CBC, FIB #### [address] [place], [place] [id number] Tile Molder: Mario Anne MD #### APROTS, APARVP, APROTC, ARUBGM #### [facility] [address] [place], [place] [id number] Tile Molder: Fernando Valencia MD #### LUPPRO #### [address] [phone] Tile Molder: Geo Mar MD [address] [place], [place] 6115383 Tile Molder: Mario Anne MD Protein [Mass/Vol] 5.6 g/dL Low 6.4-8.3 [facility] Comment on above: Performed By: #### T OXOM, HSVG12, CMVM, FA2, MATIAS, TOXOG, HSVM12, CMVG, FA5 #### [address] [address] Tile Molder: Geo Mar MD #### CBC, FIB #### [address] [place] [phone] Tile Molder: Mario Anne MD #### APROTS, APARVP, APROTC, ARUBGM #### [facility] [address] [place], [place] [id number] Tile Molder: Fernando Valencia MD #### LUPPRO #### [address] [address] Tile Molder: Geo Mar MD [address] [place] [address] Tile Molder: Mario Anne MD Sodium [Moles/Vol] 139 mmol/L Normal 135-144 [facility] Comment on above: Performed By: #### T OXOM, HSVG12, CMVM, FA2, MATIAS, TOXOG, HSVM12, CMVG, FA5 #### [address] [address] Tile Molder: Geo Mra MD #### CBC, FIB #### [address] [place], [place] 264[address]83 Tile Molder: Mario Anne MD #### APROTS, APARVP, APROTC, ARUBGM #### [facility] [address] [place] [address] Tile Molder: Fernando Valencia MD #### LUPPRO #### [address] [address] Tile Molder: Geo Mar MD [address] [place] [phone] Tile Molder: Mario Anne MD Staging: Normal [facility] Comment on above: Result Comment: Stag e 1: Some kidney damage normal GFR Stage 2: Mild kidney damage GFR 60-89 Stage 3: Moderate kidney damage GFR 30-59 Stage 4: Severe kidney damage GFR 15-29 Stage 5: Severe kidney damage GFR <15 ESRD - chronic treatment by dialysis or transplant Performed By: #### T OXOM, HSVG12, CMVM, FA2, MATIAS, TOXOG, HSVM12, CMVG, FA5 #### [address] [address] Tile Molder: Geo Mar MD #### CBC, FIB #### [address] [place], [place] 394[address]83 Tile Molder: Mario Anne MD #### APROTS, APARVP, APROTC, ARUBGM #### [facility] [address] [place] [address] Tile Molder: Fernando Vaelncia MD #### LUPPRO #### [address] [address] Tile Molder: Geo Mar MD [address] [place] [address] Tile Molder: Mario Anne MD Urea nitrogen [Mass/Vol] 7 mg/dL Normal 6-20 [facility] Comment on above: Performed By: #### T OXOM, HSVG12, CMVM, FA2, MATIAS, TOXOG, HSVM12, CMVG, FA5 #### [facility] [address] [place], [place] [id number] Tile Molder: Geo Mar MD #### CBC, FIB #### [facility] [address] [place] [address] Tile Molder: Mario Anne MD #### APROTS, APARVP, APROTC, ARUBGM #### [facility] [address] [place] [address] Tile Molder: Fernando Valencia MD #### LUPPRO #### [facility] [address] [place], [place] [id number] Tile Molder: Geo Mar MD [facility] [address] [place] [address] [place] [address] Tile Molder: Mario Anne MD Comprehensive Metabolic Pane l w/ Reflex to on 11-30-2018 Albumin [Mass/Vol] 2.9 g/dL Low 3.5 - 5.2 g/dL [place], [place] Albumin/Globulin [Mass ratio] 1.1 {ratio} [place] ALP [Catalytic activity/Vol] 41 U/L 35 - 104 U/L [place] ALT [Catalytic activity/Vol] 17 U/L 5 - 33 U/L [place] Anion gap [Moles/Vol] 14 mmol/L 9 - 17 mmol/L [place] AST [Catalytic activity/Vol] 14 U/L <32 [place] Bilirubin Ql (U) 0.16 mg/dL Low 0.3 - 1.2 mg/dL [place] Bun/Cre Ratio 8 Low [place], [place] Calcium [Mass/Vol] 8.4 mg/dL Low 8.6 - 10. 4 mg/dL [place] Chloride [Moles/Vol] 105 mmol/L 98 - 10 7 mmol/L [place] CO2 [Moles/Vol] 20 mmol/L 20 - 31 mmol/L [place] Creatinine [Mass/Vol] 0.88 mg/dL 0.5 - 0.9 mg/dL [place] GFR >60 >60 mL/min [place] GFR Non- >60 >60 mL/min [place] Glucose [Mass/Vol] 123 mg/dL High 70 - 99 mg/dL [place] Interpretation and review of laboratory results Abnormal [place] Potassium [Moles/Vol] 3.7 mmol/L 3.7 - 5.3 mmol/L [place] Protein [Mass/Vol] 5.6 g/dL Low 6.4 - 8.3 g/dL [place] Sodium [Moles/Vol] 139 mmol/L 135 - 144 mmol/L [place] Urea nitrogen [Mass/Vol] 7 mg/dL 6 - 20 mg/dL [place] Cult,Urineon 11-30-2018 Cult,Urine Specimen Description .VOIDED URINE Special Requests NOT REPORTED Culture STREPTOCOCCI, BETA HEMOLYTIC GROUP B >[id number] CFU/ML Report Status FINAL 11/30/2018 Normal [facility] Comment on above: Performed By: #### T OXOM, HSVG12, CMVM, FA2, MATIAS, TOXOG, HSVM12, CMVG, FA5 #### [facility] [address] [place] [address] Tile Molder: Geo Mar MD #### CBC, FIB #### [facility] [address] [place] [address] Tile Molder: Mario Anne MD #### APROTS, APARVP, APROTC, ARUBGM #### [facility] [address] [place] [address] Tile Molder: Fernando Valencia MD #### LUPPRO #### [facility] [address] [place], [place] [id number] Tile Molder: Geo Mar MD [facility] [address] [place] [address] [place] [address] Tile Molder: Mario Anne MD Metabolic Panelon 11-30-2018 GFR/1.73 sq M predicted among non-blacks MDRD (S/P/Bld) [Vol rate/Area] [place], [place] Comment on above: Stage 1: Some [...] body mass. Additional eGFR calculator available at: http://www.[employer]/multiple_crcl_2012.htm Vancomycin Troughon 12-01-19 19 Vancomycin Trough 22.3 ug/mL Critically high 10.0-20.0 [facility] Comment on above: Result Comment: High er trough serum vancomycin concentrations of 15-20 ug/mL are recommended for complicated infections such as bacteremia, endocarditis, osteomyelitis, meningitis, and hospital acquired pneumonia. Performed By: #### T OXOM, HSVG12, CMVM, FA2, MATIAS, TOXOG, HSVM12, CMVG, FA5 #### [facility] [address] [place], [place] [phone] Tile Molder: Geo Mar MD #### CBC, FIB #### [facility] [address] [place] [address] Tile Molder: Mario Anne MD #### APROTS, APARVP, APROTC, ARUBGM #### [facility] [address] [place] [address] Tile Molder: Fernando Valencia MD #### LUPPRO #### [address] [address] Tile Molder: Geo Mar MD [address] [place], [place] [phone] Tile Molder: Mario Anne MD Date last dose, NOT REPORTED Normal [facility] Comment on above: Performed By: #### T OXOM, HSVG12, CMVM, FA2, MATIAS, TOXOG, HSVM12, CMVG, FA5 #### [address] [address] Tile Molder: Geo Mar MD #### CBC, FIB #### [address] [place], [place] 3197683 Tile Molder: Mario Anne MD #### APROTS, APARVP, APROTC, ARUBGM #### [facility] [address] [place] [address] Tile Molder: Fernando Valencia MD #### LUPPRO #### [address] [address] Tile Molder: Geo Mar MD [address] [place], [place] 8157683 Tile Molder: Mario Anne MD Dose amount, NOT REPORTED Normal [facility] Comment on above: Performed By: #### T OXOM, HSVG12, CMVM, FA2, MATIAS, TOXOG, HSVM12, CMVG, FA5 #### [address] [address] Tile Molder: Geo Mar MD #### CBC, FIB #### [address] [place], [place] 4721883 Tile Molder: Mario Anne MD #### APROTS, APARVP, APROTC, ARUBGM #### [facility] [address] [place] [address] Tile Molder: Fernando Valencia MD #### LUPPRO #### [facility] [address] [place] [address] Tile Molder: Geo Mar MD [address] [place], [place] 7516683 Tile Molder: Mario Anne MD Time last dose, NOT REPORTED Normal [facility] Comment on above: Performed By: #### T OXOM, HSVG12, CMVM, FA2, MATIAS, TOXOG, HSVM12, CMVG, FA5 #### [facility] [address] [place] [address] Tile Molder: Geo Mar MD #### CBC, FIB #### [address] [place] [phone] Tile Molder: Mario Anne MD #### APROTS, APARVP, APROTC, ARUBGM #### [facility] [address] [place] [address] Tile Molder: Fernando Valencia MD #### LUPPRO #### [address] [address] Tile Molder: Geo Mar MD [address] [place] 2127283 Tile Molder: Mario Anne MD Vancomycin, troughon 019 Interpretation and review of laboratory results Abnormal [place] Vancomycin Tr 22.3 ug/mL Critically high 10 - 20 ug/mL [place] Comment on above: Higher trough serum vancomycin concentrations of 15-20 ug/mL are recommended for complicated infections such as bacteremia, endocarditis, osteomyelitis, meningitis, and hospital acquired pneumonia. Vancomycin Trough Date last dose NOT REPORTED [place] Vancomycin Trough Dose amount NOT REPORTED [place] Vancomycin Trough Time last dose NOT REPORTED [place] CBCon 11-29-2018 Erythrocyte distribution width (RBC) [Ratio] 13.4 % Normal 11.8-14.4 [facility] Comment on above: Performed By: #### T YS #### [facility] [address] [place] [address] Tile Molder: Mario Anne MD Hematocrit (Bld) [Volume fraction] 27.2 % Low 36.3-47.1 [facility] Comment on above: Performed By: #### T YS #### [facility] [address] [place], [place] [phone] Tile Molder: Mario Anne MD Hemoglobin (Bld) [Mass/Vol] 8.3 g/dL Low 11.9-15.1 [facility] Comment on above: Performed By: #### T YS #### [address] [place], [place] 5853283 Tile Molder: Mario Anne MD MCH (RBC) [Entitic mass] 27.9 pg Normal 25.2-33.5 [facility] Comment on above: Performed By: #### T YS #### [address] [place] [address] Tile Molder: Mario Anne MD MCHC (RBC) [Mass/Vol] 30.5 g/dL Normal 28.4-34.8 [facility] Comment on above: Performed By: #### T YS #### [facility] [address] [place] [address] Tile Molder: Mario Anne MD MCV (RBC) [Entitic vol] 91.3 fL Normal 82.6-102.9 [facility] Comment on above: Performed By: #### T YS #### [facility] [address] [place] [address] Tile Molder: Mario Anne MD NRBC Automated 0.0 per 100 WBC Normal 0.0 [facility] Comment on above: Performed By: #### T YS #### [facility] [address] [place], [facility] Tile Molder: Mario Anne MD Platelet mean volume (Bld) [Entitic vol] 9.6 fL Normal 8.1-13.5 [facility] Comment on above: Performed By: #### T YS #### [facility] [address] [place] [facility] Tile Molder: Mario Anne MD Platelets (Bld) [#/Vol] 243 10*3/uL Normal 138-453 [facility] Comment on above: Performed By: #### T YS #### [facility] [address] [place] [address] Tile Molder: Mario Anne MD RBC (Bld) [#/Vol] 2.98 10*6/uL Low 3.95-5.11 [facility] Comment on above: Performed By: #### T YS #### [facility] [address] [place] [facility]83 Tile Molder: Mario Anne MD WBC (Bld) [#/Vol] 16.6 10*3/uL High 3.5-11.3 [facility] Comment on above: Performed By: #### T YS #### [facility] [address] [place], [facility] Tile Molder: Mario Anne MD Erythrocyte distribution width (RBC) [Ratio] 13.4 % 11.8 - 14.4 % [place] Hematocrit (Bld) [Volume fraction] 27.2 % Low 36.3 - 47.1 % [place] Hemoglobin (Bld) [Mass/Vol] 8.3 g/dL Low 11.9 - 15.1 g/dL [place] Interpretation and review of laboratory results Abnormal [place] MCH (RBC) [Entitic mass] 27.9 pg 25.2 - 33.5 pg [place] MCHC (RBC) [Mass/Vol] 30.5 g/dL 28.4 - 34.8 g/dL [place] MCV (RBC) [Entitic vol] 91.3 fL 82.6 - 102.9 fL [place] Platelet mean volume (Bld) [Entitic vol] 9.6 fL 8.1 - 13.5 fL [place] Platelets (Bld) [#/Vol] 243 10*3/uL [place] RBC (Bld) [#/Vol] 2.98 10*6/uL Low 3.95 - 5.1 1 m/uL [place] WBC (Bld) [#/Vol] 16.6 10*3/uL High [place] WBC (Bld) [#/Vol] 0.0 10*3/uL 0.0 per 10 0 WBC [place] CONSULTATIONon 11-29-[address] [address] CONSULTATION PATIENT NAME: DEION CUMMINGS : 1995 MED REC NO: [id number] ROOM: 0328 ACCOUNT NO: [id number] ADMIT DATE: 11/28/2018 PROVIDER: Jennifer Hedrick CONSULT [...] in this matter. JENNIFER HEDRICK [id number] Doc#: [id number] CC: Normal [facility] Comp Metabolic Pr/rfx MGon 0 11-29-2018 (cont.) [facility] Comment on above: Result Comment: Aver age GFR for 20-29 years old: 116 mL/min/1.73sq m Chronic Kidney Disease: <60 mL/min/1.73sq m Kidney failure: <15 mL/min/1.73sq m eGFR calculated using average adult body mass. Additional eGFR calculator available at: http://www.[employer].Flow[employer]/multiple_crcl_2012.htm Performed By: #### T YS #### [facility] [address] [place] [address] Tile Molder: Mario Anne MD Albumin [Mass/Vol] 3.1 g/dL Low 3.5-5.2 [facility] Comment on above: Performed By: #### T YS #### [facility] [address] [place], [place] 5536183 Tile Molder: Mario Anne MD Albumin/Globulin [Mass ratio] 1.2 {ratio} Normal 1.0-2.5 [facility] Comment on above: Performed By: #### T YS #### [facility] [address] [place], [place] 7161383 Tile Molder: Mario Anne MD Alkaline Phos 38 U/L Normal 35-104 [facility] Comment on above: Performed By: #### T YS #### [facility] [address] [place] [id number] Tile Molder: Mario Anne MD ALT [Catalytic activity/Vol] 15 U/L Normal 5-33 [facility] Comment on above: Performed By: #### T YS #### [facility] [address] [place], [place] 7625183 Tile Molder: Mario Anne MD Anion gap [Moles/Vol] 13 mmol/L Normal 9-17 [facility] Comment on above: Performed By: #### T YS #### [facility] [address] [place] [address] Tile Molder: Mario Anne MD AST [Catalytic activity/Vol] 11 U/L Normal <32 [facility] Comment on above: Performed By: #### T YS #### [facility] [address] [place], [place] 2316483 Tile Molder: Mario Anne MD Bilirubin Ql (U) 0.56 mg/dL Normal 0.3-1.2 [facility] Comment on above: Performed By: #### T YS #### [facility] [address] [place], [place] 8975083 Tile Molder: Mario Anne MD BUN/CRE Ratio 9 Normal 9-20 [facility] Comment on above: Performed By: #### T YS #### [facility] [address] [place], [place] 3618883 Tile Molder: Mario Anne MD Calcium [Mass/Vol] 8.5 mg/dL Low 8.6-10.4 [facility] Comment on above: Performed By: #### T YS #### [facility] [address] [place], [place] 1360483 Tile Molder: Mario Anne MD Chloride [Moles/Vol] 101 mmol/L Normal 98-107 [facility] Comment on above: Performed By: #### T YS #### [facility] [address] [place], [place] 0498583 Tile Molder: Mario Anne MD CO2 [Moles/Vol] 20 mmol/L Normal 20-31 [facility] Comment on above: Performed By: #### T YS #### [facility] [address] [place], [place] [id number] Tile Molder: Mario Anne MD Creatinine [Mass/Vol] 0.80 mg/dL Normal 0.50-0.90 [facility] Comment on above: Performed By: #### T YS #### [facility] [address] [place], [place] [id number] Tile Molder: Mario Anne MD GFR, Amer >60 Normal >60 [facility] Comment on above: Performed By: #### T YS #### [facility] [address] [place], [place] 2930083 Tile Molder: Mario Anne MD GFR,non Amer >60 Normal >60 [facility] Comment on above: Performed By: #### T YS #### [facility] [address] [place], [place] 2136283 Tile Molder: Mario Anne MD Glucose [Mass/Vol] 121 mg/dL High 70-99 [facility] Comment on above: Performed By: #### T YS #### [facility] [address] [place] [address] Tile Molder: Mario Anne MD Potassium [Moles/Vol] 3.4 mmol/L Low 3.7-5.3 [facility] Comment on above: Performed By: #### T YS #### [facility] [address] [place] [id number] Tile Molder: Mario Anne MD Protein [Mass/Vol] 5.7 g/dL Low 6.4-8.3 [facility] Comment on above: Performed By: #### T YS #### [facility] [address] [place] [address] Tile Molder: Mario Anne MD Sodium [Moles/Vol] 134 mmol/L Low 135-144 [facility] Comment on above: Performed By: #### T YS #### [facility] [address] [place] [address] Tile Molder: Mario Anne MD Staging: Normal [facility] Comment on above: Result Comment: Stag e 1: Some kidney damage normal GFR Stage 2: Mild kidney damage GFR 60-89 Stage 3: Moderate kidney damage GFR 30-59 Stage 4: Severe kidney damage GFR 15-29 Stage 5: Severe kidney damage GFR <15 ESRD - chronic treatment by dialysis or transplant Performed By: #### T YS #### [facility] [address] [place] [id number] Tile Molder: Mario Anne MD Urea nitrogen [Mass/Vol] 7 mg/dL Normal 6-20 [facility] Comment on above: Performed By: #### T YS #### [facility] [address] [place] [address] Tile Molder: Mario Anne MD Comprehensive Metabolic Pane l w/ Reflex to MGon 11-29-2018 Albumin [Mass/Vol] 3.1 g/dL Low 3.5 - 5.2 g/dL [place] Albumin/Globulin [Mass ratio] 1.2 {ratio} [place] ALP [Catalytic activity/Vol] 38 U/L 35 - 104 U/L [place] ALT [Catalytic activity/Vol] 15 U/L 5 - 33 U/L [place] Anion gap [Moles/Vol] 13 mmol/L 9 - 17 mmol/L [place] AST [Catalytic activity/Vol] 11 U/L <32 [place] Bilirubin Ql (U) 0.56 mg/dL 0.3 - 1.2 mg/dL [place] Bun/Cre Ratio 9 [place], [place] Calcium [Mass/Vol] 8.5 mg/dL Low 8.6 - 10. 4 mg/dL [place] Chloride [Moles/Vol] 101 mmol/L 98 - 10 7 mmol/L [place] CO2 [Moles/Vol] 20 mmol/L 20 - 31 mmol/L [place] Creatinine [Mass/Vol] 0.8 mg/dL 0.5 - 0.9 mg/dL [place] GFR >60 >60 mL/min [place] GFR Non- >60 >60 mL/min [place] Glucose [Mass/Vol] 121 mg/dL High 70 - 99 mg/dL [place] Interpretation and review of laboratory results Abnormal [place] Potassium [Moles/Vol] 3.4 mmol/L Low 3.7 - 5.3 mmol/L [place] Protein [Mass/Vol] 5.7 g/dL Low 6.4 - 8.3 g/dL [place] Sodium [Moles/Vol] 134 mmol/L Low 135 - 144 mmol/L [place] Urea nitrogen [Mass/Vol] 7 mg/dL 6 - 20 mg/dL [place] Factor II Activityon 019 Factor II Activity 120 % Normal 50-150 [facility] Comment on above: Performed By: #### C BC #### [facility] [address] [place], [place] 128[address] Tile Molder: Mario Anne MD Factor V Activityon 11-30-19 19 Factor V Activity 120 % Normal 50-150 [facility] Comment on above: Performed By: #### C BC #### [facility] [address] [place], [place] 323[address]83 Tile Molder: Mario Anne MD Lupus Anticoagulanton 2018 Dilute Alexandr Viper Negative Normal NLUP [facility] Comment on above: Performed By: #### C BC #### [facility] [address] [place], [place] 1201[address] Tile Molder: Mario Anne MD Magnesiumon 11-29-2018 Magnesium [Mass/Vol] 1.9 mg/dL Normal 1.6-2.6 [facility] Comment on above: Performed By: #### T YS #### [facility] [address] [place], [place] 6050383 Tile Molder: Mario Anne MD Magnesium [Mass/Vol] 1.9 mg/dL 1.6 - 2 .6 mg/dL [place] Metabolic Panelon 11-29-2018 GFR/1.73 sq M predicted among non-blacks MDRD (S/P/Bld) [Vol rate/Area] [place] Comment on above: Average GFR for 20-2 9 years old: 116 mL/min/1.73sq m Chronic Kidney Disease: <60 mL/min/1.73sq m Kidney failure: <15 mL/min/1.73sq m eGFR calculated using average adult body mass. Additional eGFR calculator available at: http://www.[employer]/multiple_crcl_2012.htm Stage 1: Some kidney damage normal GFR [...] Nba Thomas MD 11/29/18 Final result Normal [facility] No retained products demonstrated. [facility] [place], Mhpn Incoming Radiant Results From [employer] - 11/29/2018 12:12 AM EDT EXAMINATION: PELVIC ULTRASOUND 11/28/2018 TECHNIQUE: Transabdominal pelvic ultrasound COMPARISON: None HISTORY: ORDERING SYSTEM PROVIDED HISTORY: Rule out retained products of conception FINDINGS: No intrauterine gestational sac is identified. The endometrium measures up to 6.7 mm in thickness. No retained products of conception are demonstrated. IMPRESSION: No retained products demonstrated. [place], [place] EXAMINATION: PELVIC ULTRASOUND 11/28/2018 TECHNIQUE: Transabdominal pelvic ultrasound COMPARISON: None HISTORY: ORDERING SYSTEM PROVIDED HISTORY: Rule out retained products of conception FINDINGS: No intrauterine gestational sac is identified. The endometrium measures up to 6.7 mm in thickness. No retained products of conception are demonstrated. [facility] [place] VL DUP LOWER EXTREMITY VENOU S BILATERALon 11-29-2018 [place], Mhpn Incoming Cardio Results From Cpacs/Ge - 11/29/2018 3:57 PM EDT [facility] Vascular Lower Extremities DVT Study Procedure Patient Name TOMY Date of Study 11/29/2018 DEION L Date of 1995 Gender Female Age 23 year(s) Race Room Number 0328 Corporate ID [id number] # Patient Acct [id number] # MR # [id number] Corporate Receptionist CARLOS Carey Interpreting Physician Matt Mayer MD [...] !Phasic! ! ! + ------+------+------+- --------- + [facility] [place], [facility] Vascular Lower Extremities DVT Study Procedure Patient Name TOMY Date of Study 11/29/2018 DEION Lopez Date of 1995 Gender Female Age 23 year(s) Race Room Number 0328 Corporate ID [id number] # Patient Acct [id number] # MR # [id number] Corporate Receptionist CARLOS Carey Interpreting Physician Matt Mayer MD [...] !Popliteal !Phasic! ! ! + ------+------+------+- ---------+ [facility] [place] APTTon 11-28-2018 aPTT Coag (Bld) [Time] 21.5 s Low 23.2-34.4 [facility] Comment on above: Performed By: #### L IP, CMPX, PT, CDP, PTT ####[facility] , [place] [id number] lab Director: Mario Anne MD aPTT Coag (Bld) [Time] 21.5 s Low [facility] [place] Blood gas, venouson 11-29-19 19 Marco Test NOT REPORTED [facility] [place] aPTT Coag (Bld) [Time] NOT REPORTED [facility] [place] Carboxyhemoglobin 0 - 5 % [facility]- [place] FIO2 NOT REPORTED [facility] [place] HCO3, Venous 20.5 mmol/L Low 24 - 30 mmol/L [facility] [place] Interpretation and review of laboratory results Abnormal [facility] [place] Methemoglobin NOT REPORTED 0 - 1.9 % [facility] [place] Mode NOT REPORTED [facility] [place] Negative Base Excess, [place] 2.9 mmol/L High 0 - 2 mmol/L [place] NOTIFICATION NOT REPORTED [place], [place] NOTIFICATION TIME NOT REPORTED [place] O2 Device/Flow/% NOT REPORTED [place] Oxygen saturation in Blood 40.2 % Low 60 - 85 % [place] Oxyhemoglobin NOT REPORTED 95 - 98 % [place], [place] pCO2, [place] 31.9 Low [place] pCO2, [place], Temp Adj NOT REPORTED [place] Peep/Cpap NOT REPORTED [place], [place] pH, [place] 7.425 High [place] pH, [place], Temp Adj NOT REPORTED [place] pO2, [place] 22.2 Low [place] pO2, [place], Temp Adj NOT REPORTED [place], [place] Positive Base Excess, [place] NOT REPORTED 0 - 2 mmol/L [place] PSV NOT REPORTED [place] Pt. Position NOT REPORTED [place], [place] Sample Site NOT REPORTED [place], [place] Set Rate NOT REPORTED [place] Text for Respiratory NOT REPORTED [place] Total Hb NOT REPORTED 12 - 16 g/dl [place], [place] Total Rate NOT REPORTED [place] VT NOT REPORTED [place] CBC auto differentialon 11-19 Basophils (Bld) [#/Vol] 0.03 10*3/uL [place] Basophils/100 WBC (Bld) 0 % 0 - 2 % [place] Differential Type NOT REPORTED [place] Eosinophils (Bld) [#/Vol] 0.17 10*3/uL [place] Eosinophils/100 WBC (Bld) 1 % 1 - 4 % [place] Erythrocyte distribution width (RBC) [Ratio] 13.3 % 11.8 - 14.4 % [place] Hematocrit (Bld) [Volume fraction] 30.5 % Low 36.3 - 47.1 % [place] Hemoglobin (Bld) [Mass/Vol] 9.6 g/dL Low 11.9 - 15.1 g/dL [place] Immature granulocytes (Bld) [#/Vol] 1 % High 0 [place] Immature granulocytes (Bld) [#/Vol] 0.09 10*3/uL [place] Interpretation and review of laboratory results Abnormal [place] Lymphocytes (Bld) [#/Vol] 0.80 10*3/uL Low [place] Lymphocytes/100 WBC (Bld) 5 % Low 24 - 43 % [place] MCH (RBC) [Entitic mass] 28.1 pg 25.2 - 33.5 pg [place] MCHC (RBC) [Mass/Vol] 31.5 g/dL 28.4 - 34.8 g/dL [place] MCV (RBC) [Entitic vol] 89.2 fL 82.6 - 102.9 fL [place] Monocytes (Bld) [#/Vol] 0.65 10*3/uL [place] Monocytes/100 WBC (Bld) 4 % 3 - 12 % [place] Platelet mean volume (Bld) [Entitic vol] 9.9 fL 8.1 - 13.5 fL [place] Platelets (Bld) [#/Vol] 305 10*3/uL [place] Platelets (Bld) [#/Vol] NOT REPORTED [place] RBC (Bld) [#/Vol] 3.42 10*6/uL Low 3.95 - 5.1 1 m/uL [place] RBC morphology finding Nom (Bld) NOT REPORTED [place] Segmented neutrophils/100 WBC (Bld) 89 % High 36 - 65 % [place] Segs Absolute 15.13 High [place], [place] WBC (Bld) [#/Vol] 16.9 10*3/uL [place] WBC (Bld) [#/Vol] 0.0 10*3/uL 0.0 per 10 0 WBC [place] WBC Morphology NOT REPORTED [place], [place] CBC with Diffon 11-28-2018 Abs. Basophil 0.03 k/uL Normal 0.00-0.20 [facility] Comment on above: Performed By: #### L IP, CMPX, PT, CDP, PTT ####[address] , [place] [id number] Lab Director: Mario Anne MD Abs.Imm.Granulocyte 0.09 k/uL Normal 0.00-0.30 [facility] Comment on above: Performed By: #### L IP, CMPX, PT, CDP, PTT ####[address] , [place] [id number] Lab Director: Mario Anne MD Abs.Neutrophil (Seg) 15.13 k/uL High 1.50-8.10 [facility] Comment on above: Performed By: #### L IP, CMPX, PT, CDP, PTT ####[address] , [facility]83 Lab Director: Mario Anne MD Basophils/100 WBC (Bld) 0 % Normal 0-2 [facility] Comment on above: Performed By: #### L IP, CMPX, PT, CDP, PTT ####[address] , [place] 9[address] Lab Director: Mario Anne MD Eosinophils (Bld) [#/Vol] 0.17 10*3/uL Normal 0.00-0.44 [facility] Comment on above: Performed By: #### L IP, CMPX, PT, CDP, PTT ####[address] , [place] [id number] Lab Director: Mario Anne MD Eosinophils/100 WBC (Bld) 1 % Normal 1-4 [facility] Comment on above: Performed By: #### L IP, CMPX, PT, CDP, PTT ####[address] , [place] [id number] Lab Director: Mario Anne MD Erythrocyte distribution width (RBC) [Ratio] 13.3 % Normal 11.8-14.4 [facility] Comment on above: Performed By: #### L IP, CMPX, PT, CDP, PTT ####[address] , [facility])[phone] Director: Mario Anne MD Hematocrit (Bld) [Volume fraction] 30.5 % Low 36.3-47.1 [facility] Comment on above: Performed By: #### L IP, CMPX, PT, CDP, PTT ####[address] , [place] [address])[phone] Director: Mario Anne MD Hemoglobin (Bld) [Mass/Vol] 9.6 g/dL Low 11.9-15.1 [facility] Comment on above: Performed By: #### L IP, CMPX, PT, CDP, PTT ####[address] , [place] [address])[phone] Director: Mario Anne MD Immature granulocytes (Bld) [#/Vol] 1 % High 0 [facility] Comment on above: Performed By: #### L IP, CMPX, PT, CDP, PTT ####[address] , [facility]13([facility])[phone] Director: Mario Anne MD Lymphocytes (Bld) [#/Vol] 0.80 10*3/uL Low 1.10-3.70 [facility] Comment on above: Performed By: #### L IP, CMPX, PT, CDP, PTT ####[address] , [facility]19([facility])[phone] Director: Mario Anne MD Lymphocytes/100 WBC (Bld) 5 % Low 24-43 [facility] Comment on above: Performed By: #### L IP, CMPX, PT, CDP, PTT ####[address] , [facility]83 Lab Director: Mario Anne MD MCH (RBC) [Entitic mass] 28.1 pg Normal 25.2-33.5 [facility] Comment on above: Performed By: #### L IP, CMPX, PT, CDP, PTT ####[address] , [facility]83 lab Director: Mario Anne MD MCHC (RBC) [Mass/Vol] 31.5 g/dL Normal 28.4-34.8 [facility] Comment on above: Performed By: #### L IP, CMPX, PT, CDP, PTT ####[address] , [facility]83 lab Director: Mario Anne MD MCV (RBC) [Entitic vol] 89.2 fL Normal 82.6-102.9 [facility] Comment on above: Performed By: #### L IP, CMPX, PT, CDP, PTT ####[address] , [facility]83 lab Director: Mario Anne MD Monocytes (Bld) [#/Vol] 0.65 10*3/uL Normal 0.10-1.20 [facility] Comment on above: Performed By: #### L IP, CMPX, PT, CDP, PTT ####[address] , [facility]83 Lab Director: Mario Anne MD Monocytes/100 WBC (Bld) 4 % Normal 3-12 [facility] Comment on above: Performed By: #### L IP, CMPX, PT, CDP, PTT ####[address] , [facility]83 lab Director: Mario Anne MD Neutrophil (Seg) 89 % High 36-65 [facility] Comment on above: Performed By: #### L IP, CMPX, PT, CDP, PTT ####[address] , [place] [id number] Lab Director: Mario Anne MD NRBC Automated 0.0 per 100 WBC Normal 0.0 [facility] Comment on above: Performed By: #### L IP, CMPX, PT, CDP, PTT ####[address] , [place] [id number] Lab Director: Mario Anne MD Platelet mean volume (Bld) [Entitic vol] 9.9 fL Normal 8.1-13.5 [facility] Comment on above: Performed By: #### L IP, CMPX, PT, CDP, PTT ####[address] [place] [address] Lab Director: Mario Anne MD Platelets (Bld) [#/Vol] 305 10*3/uL Normal 138-453 [facility] Comment on above: Performed By: #### L IP, CMPX, PT, CDP, PTT ####[address] , [place] [id number])[phone] Director: Mario Anne MD RBC (Bld) [#/Vol] 3.42 10*6/uL Low 3.95-5.11 [facility] Comment on above: Performed By: #### L IP, CMPX, PT, CDP, PTT ####[address] , [place] [address])[phone] Director: Mario Anne MD WBC (Bld) [#/Vol] 16.9 10*3/uL High 3.5-11.3 [facility] Comment on above: Performed By: #### L IP, CMPX, PT, CDP, PTT ####[address] [place] [address] Lab Director: Mario Anne MD Auto Diff Performed NOT REPORTED Normal [facility] Comment on above: Performed By: #### L IP, CMPX, PT, CDP, PTT ####[facility] [place] [address] Lab Director: Mario Anne MD Platelets (Bld) [#/Vol] NOT REPORTED Normal [facility] Comment on above: Performed By: #### L IP, CMPX, PT, CDP, PTT ####[address] [place] [address] Lab Director: Mario Anne MD RBC morphology finding Nom (Bld) NOT REPORTED Normal [facility] Comment on above: Performed By: #### L IP, CMPX, PT, CDP, PTT ####[address] [place] [address] Lab Director: Mario Anne MD WBC Morphology NOT REPORTED Normal [facility] Comment on above: Performed By: #### L IP, CMPX, PT, CDP, PTT ####[address] [place] [address] lab Director: Mario Anne MD CT ABDOMEN [...] Graeme Stewart MD 11/28/18 Final result Normal [facility] EXAMINATION: [facility] ABDOMEN AND PELVIS WITHOUT CONTRAST 11/28/2018 8:25 [...] No lymphadenopathy within the abdomen or pelvis. [place], [place] No evidence for acut e intra-abdominal or intrapelvic pathology. No bowel obstruction or inflammation. No free intraperitoneal air or fluid. No evidence for urinary obstruction. Normal appendix. 2.5 cm exophytic lesion arising from the interpolar region of the right kidney, indeterminate. Further evaluation with renal ultrasound is recommended on a nonemergent/outpatient basis. [place], [place], Mhpn Incoming Radiant Results From Feedo/HangIt - 11/28/2018 8:59 PM EDT EXAMINATION: CT [...] ultrasound is recommended on a nonemergent/outpatient basis. [facility]- [place], [place] Comp Metabolic Pr/rfx MGon 0 11-28-2018 AST [Catalytic activity/Vol] 23 U/L Normal <32 [facility] Comment on above: Performed By: #### L IP, CMPX, PT, CDP, PTT ####[facility] [place] [address] lab Director: Mario Anne MD (cont.) Normal [facility] Comment on above: Result Comment: Aver age GFR for 20-29 years old: 116 mL/min/1.73sq m Chronic Kidney Disease: <60 mL/min/1.73sq m Kidney failure: <15 mL/min/1.73sq m eGFR calculated using average adult body mass. Additional eGFR calculator available at: http://www.[employer].FlowPay/multiple_crcl_2012.htm Performed By: #### L IP, CMPX, PT, CDP, PTT ####[facility] [place] [address] lab Director: Mario Anne MD Albumin [Mass/Vol] 3.7 g/dL Normal 3.5-5.2 [facility] Comment on above: Performed By: #### L IP, CMPX, PT, CDP, PTT ####[facility] [place] [address] lab Director: Mario Anne MD Albumin/Globulin [Mass ratio] 1.2 {ratio} Normal 1.0-2.5 [facility] Comment on above: Performed By: #### L IP, CMPX, PT, CDP, PTT ####[address] [place] [address] lab Director: Mario Anne MD Alkaline Phos 47 U/L Normal 35-104 [facility] Comment on above: Performed By: #### L IP, CMPX, PT, CDP, PTT ####[address] [place] [address] lab Director: Mario Anne MD ALT [Catalytic activity/Vol] 18 U/L Normal 5-33 [facility] Comment on above: Performed By: #### L IP, CMPX, PT, CDP, PTT ####[address] [place] [address] lab Director: Mario Anne MD Anion gap [Moles/Vol] 16 mmol/L Normal 9-17 [facility] Comment on above: Performed By: #### L IP, CMPX, PT, CDP, PTT ####[address] [place] [address] lab Director: Mario Anne MD Bilirubin Ql (U) 0.33 mg/dL Normal 0.3-1.2 [facility] Comment on above: Performed By: #### L IP, CMPX, PT, CDP, PTT ####[address] [place] [address] lab Director: Mario Anne MD BUN/CRE Ratio 10 Normal 9-20 [facility] Comment on above: Performed By: #### L IP, CMPX, PT, CDP, PTT ####[address] [place] [address] lab Director: Mario Anne MD Calcium [Mass/Vol] 9.1 mg/dL Normal 8.6-10.4 [facility] Comment on above: Performed By: #### L IP, CMPX, PT, CDP, PTT ####[address] , [place] 1959383 lab Director: Mario Anne MD Chloride [Moles/Vol] 102 mmol/L Normal 98-107 [facility] Comment on above: Performed By: #### L IP, CMPX, PT, CDP, PTT ####[address] , [place] 17[address] lab Director: Mario Anne MD CO2 [Moles/Vol] 20 mmol/L Normal 20-31 [facility] Comment on above: Performed By: #### L IP, CMPX, PT, CDP, PTT ####[address] , [place] [id number] lab Director: Mario Anne MD Creatinine [Mass/Vol] 0.81 mg/dL Normal 0.50-0.90 [facility] Comment on above: Performed By: #### L IP, CMPX, PT, CDP, PTT ####[address] , [place] 15[address] lab Director: Mario Anne MD GFR, Amer >60 Normal >60 [facility] Comment on above: Performed By: #### L IP, CMPX, PT, CDP, PTT ####[address] , [place] 85[address] lab Director: Mario Anne MD GFR,non Amer >60 Normal >60 [facility] Comment on above: Performed By: #### L IP, CMPX, PT, CDP, PTT ####[address] [place] [address] lab Director: Mario Anne MD Glucose [Mass/Vol] 93 mg/dL Normal 70-99 [facility] Comment on above: Performed By: #### L IP, CMPX, PT, CDP, PTT ####[address] [place] [address] lab Director: Mario Anne MD Potassium [Moles/Vol] 3.8 mmol/L Normal 3.7-5.3 [facility] Comment on above: Performed By: #### L IP, CMPX, PT, CDP, PTT ####[address] [place] [address] lab Director: Mario Anne MD Protein [Mass/Vol] 6.9 g/dL Normal 6.4-8.3 [facility] Comment on above: Performed By: #### L IP, CMPX, PT, CDP, PTT ####[address] [place] [address] lab Director: Mario Anne MD Sodium [Moles/Vol] 138 mmol/L Normal 135-144 [facility] Comment on above: Performed By: #### L IP, CMPX, PT, CDP, PTT ####[address] [place] [address] lab Director: Mario Anne MD Staging: Normal [facility] Comment on above: Result Comment: Stag e 1: Some kidney damage normal GFR Stage 2: Mild kidney damage GFR 60-89 Stage 3: Moderate kidney damage GFR 30-59 Stage 4: Severe kidney damage GFR 15-29 Stage 5: Severe kidney damage GFR <15 ESRD - chronic treatment by dialysis or transplant Performed By: #### L IP, CMPX, PT, CDP, PTT ####[address] [place] [address] lab Director: Mario Anne MD Urea nitrogen [Mass/Vol] 8 mg/dL Normal 6-20 [facility] Comment on above: Performed By: #### L IP, CMPX, PT, CDP, PTT ####[address] [place] [address] lab Director: Mario Anne MD Comprehensive Metabolic Pane l w/ Reflex to MGon 11-28-2018 Albumin [Mass/Vol] 3.7 g/dL 3.5 - 5.2 g/dL [place] Albumin/Globulin [Mass ratio] 1.2 {ratio} [place] ALP [Catalytic activity/Vol] 47 U/L 35 - 104 U/L [place] ALT [Catalytic activity/Vol] 18 U/L 5 - 33 U/L [place] Anion gap [Moles/Vol] 16 mmol/L 9 - 17 mmol/L [place] AST [Catalytic activity/Vol] 23 U/L <32 [place] Bilirubin Ql (U) 0.33 mg/dL 0.3 - 1.2 mg/dL [place] Bun/Cre Ratio 10 [place], [place] Calcium [Mass/Vol] 9.1 mg/dL 8.6 - 10. 4 mg/dL [place] Chloride [Moles/Vol] 102 mmol/L 98 - 10 7 mmol/L [place] CO2 [Moles/Vol] 20 mmol/L 20 - 31 mmol/L [place] Creatinine [Mass/Vol] 0.81 mg/dL 0.5 - 0.9 mg/dL [place] GFR >60 >60 mL/min [place], [place] GFR Non- >60 >60 mL/min [place] Glucose [Mass/Vol] 93 mg/dL 70 - 99 mg/dL [place] Potassium [Moles/Vol] 3.8 mmol/L 3.7 - 5.3 mmol/L [place] Protein [Mass/Vol] 6.9 g/dL 6.4 - 8.3 g/dL [place] Sodium [Moles/Vol] 138 mmol/L 135 - 144 mmol/L [place] Urea nitrogen [Mass/Vol] 8 mg/dL 6 - 20 mg/dL [place] Herpes Type I/II, IgGon 11-19 Herpes Type I, IgG 1.22 High <0.91 [facility] Comment on above: Result Comment: Reference Range: <=0.90 Negative 0.91-1.09 Equivocal >=1.10 Positive Performed By: #### C BC #### [facility] [address] [place], [place] [id number] Tile Molder: Mario Anne MD Herpes Type II, IgG 0.56 Normal <0.91 [facility] Comment on above: Result Comment: Reference Range: <=0.90 Negative 0.91-1.09 Equivocal >=1.10 Positive Performed By: #### C BC #### [facility] [address] [place], [place] [address] Tile Molder: Mario Anne MD Herpes Type I/II,IgMon 11-28 Herpes Type I/II,IgM 1.09 High <0.91 [facility] Comment on above: Result Comment: Reference Range: <=0.90 Negative 0.91-1.09 Equivocal >=1.10 Positive If positive, an IgM result indicates a current or recent infection. This test does not differentiate type I from type II. No current reference test is available for this. If IgG tests are ordered and are negative, consider retesting in 2 to 3 weeks. Performed By: #### C BC #### [facility] [address] [place], [place] [id number] Tile Molder: Mario Anne MD Lactate, Sepsison 11-28-2018 Lactic Acid, Sepsis 1.8 mmol/L Normal 0.5-1.9 [facility] Comment on above: Performed By: #### T YS #### [facility] [address] [place], [place] [id number] Tile Molder: Mario Anne MD Lactic Acid,Sep Wbld NOT REPORTED Normal 0.5-1.9 [facility] Comment on above: Performed By: #### T YS #### [facility] [address] [place], [place] [id number] Tile Molder: Mario Anne MD Lactic Acid, Sepsis 1.8 mmol/L 0.5 - 1. 9 mmol/L [place] Lactic Acid, Sepsis, Whole Blood NOT REPORTED 0.5 - 1.9 mmol/L [place] Lipaseon 11-28-2018 Lipase [Catalytic activity/Vol] 21 U/L Normal 13-60 [facility] Comment on above: Performed By: #### L IP, CMPX, PT, CDP, PTT ####[facility] [place] [address] Lab Director: Mario Anne MD Lipase [Catalytic activity/Vol] 21 U/L 13 - 60 U/L [place] Lupus Anticoagulanton 2018 Antiphospholipid IgA 0.8 APU Normal <12 [facility] Comment on above: Result Comment: Reference Range: 12 - 15 Equivocal >15 Positive Performed By: #### C BC #### [facility] [address] [place] [address] Tile Molder: Mario Anne MD Antiphospholipid IgG 3.0 GPU Normal <20 [facility] Comment on above: Result Comment: Reference Range: 20.0 - 29.9 Low Positive 30.0 - 79.9 Moderate Positive >79.9 High Positive Performed By: #### C BC #### [facility] [address] [place] [address] Tile Molder: Mario Anne MD Antiphospholipid IgM 6.6 MPU Normal <20 [facility] Comment on above: Result Comment: Reference Range: 20.0 - 29.9 Low Positive 30.0 - 79.9 Moderate Positive >79.9 High Positive Performed By: #### C BC #### [facility] [address] [place] [address] Tile Molder: Mario Anne MD Metabolic Panelon 11-28-2018 GFR/1.73 sq M predicted among non-blacks MDRD (S/P/Bld) [Vol rate/Area] [place] Comment on above: Average GFR for 20-2 9 years old: 116 mL/min/1.73sq m Chronic Kidney Disease: <60 mL/min/1.73sq m Kidney failure: <15 mL/min/1.73sq m eGFR calculated using average adult body mass. Additional eGFR calculator available at: http://www.[employer]/multiple_crcl_2012.htm Stage 1: Some kidney damage normal GFR Stage 2: Mild kidney damage GFR 60-89 Stage 3: Moderate kidney damage GFR 30-59 Stage 4: Severe kidney damage GFR 15-29 Stage 5: Severe kidney damage GFR <15 ESRD - chronic treatment by dialysis or transplant Microscopic Urinalysison Amorphous, UA NOT REPORTED None [facility], [place] Bacteria, UA NOT REPORTED None [facility] [place] Casts UA NOT REPORTED /LPF [place] Crystals UA NOT REPORTED None /HPF [place], [place] Epithelial Cells UA 2 TO 5 [place] Mucus, UA NOT REPORTED None [place] Other Observations UA NOT REPORTED NOT REQ. M [place] RBC (U) [#/Vol] 5 TO 10 [place], [place] Renal Epithelial, Urine NOT REPORTED 0 /HPF [place] Trichomonas, UA NOT REPORTED None [facility] [place] WBC, UA 10 TO 20 [place] Yeast, UA NOT REPORTED None [place], [place] - [place] Otheron 11-28-2018 Interpretation and review of laboratory results Abnormal [place] PTon 11-28-2018 INR Coag (PPP) [Relative time] 1.3 {INR} High 0.9-1.2 [facility] Comment on above: Performed By: #### L IP, CMPX, PT, CDP, PTT ####[facility] [place] [address] lab Director: Mario Anne MD PT Coag (PPP) [Time] 13.4 s High 9.7-12.2 [facility] Comment on above: Performed By: #### L IP, CMPX, PT, CDP, PTT ####[facility] , [place] [id number] Lab Director: Mario Anne MD Parvovirus B19 Panelon 11-28 Parvovirus IgG B19 6.29 IV High <=0.89 [facility] Comment on above: Result Comment: (NOT E) [...] time. Performed By: #### C BC #### [facility] [address] [place] [address] Tile Molder: Mario Anne MD Parvovirus IgM B19 0.15 IV Normal <=0.89 [facility] Comment on above: Result Comment: (NOT E) [...] levels of specific IgM antibodies. Performed by [employer], [address] [place] [address] [email or web address], Fernando Valencia MD, Lab. Director Performed By: #### C BC #### [facility] [address] [place], [place] [id number] Tile Molder: Mario Anne MD Protein C Antigenicon 2018 Protein [Mass/Vol] 83 % Normal 63-153 [facility] Comment on above: Result Comment: (NOT E) INTERPRETIVE INFORMATION: Protein C, Total Antigen Patients on warfarin may have decreased protein C values. Patients should be off warfarin therapy for two weeks for accurate measurement of protein C. Access complete set of age- and/or gender-specific reference intervals for this test in the [facility] Laboratory Test Directory ([employer]). Performed by [facility], [address] [place] [id number] [email or web address], Fernando Valencia MD, Lab. Director Performed By: #### C BC #### [facility] [address] [place] [address] Tile Molder: Mario Anne MD Protein S, Antigenicon 11-28 Protein [Mass/Vol] 71 % Normal 63-126 [facility] Comment on above: Result Comment: (NOT E) INTERPRETIVE INFORMATION: Protein S, Total Antigen Patients on warfarin may have decreased protein S values. Patients should be off warfarin therapy for two weeks for accurate measurement of protein S. Access complete set of age- and/or gender-specific reference intervals for this test in the [facility] Laboratory Test Directory ([employer]). Performed by [facility], [address] [place] [id number] [email or web address], Fernando Valencia MD, Lab. Director Performed By: #### C BC #### [facility] [address] [place] [address] Tile Molder: Mario Anne MD Protime-INRon 11-28-2018 INR Coag (PPP) [Relative time] 1.3 {INR} [place], [place] PT Coag (PPP) [Time] 13.4 s [place], [place] Rubella IgM, Abon 11-28-2018 Rubella IgM, Ab <10.0 Normal <=19.9 [facility] Comment on above: Result Comment: (NOT [...] the amount of antibody present. Performed by [facility], [address] [place] [id number] [email or web address], Fernando Valencia MD, Lab. Director Performed By: #### C #### [facility] [address] [place] [address] [place] [address] Tile Molder: Mario Anne MD Urinalysison 11-28-2018 Bilirubin Urine Negative NEGATIVE [place], [place] Color, UA YELLOW YELLOW [place], [place] Glucose, Ur Negative NEGATIVE [place] Interpretation and review of laboratory results Abnormal [place], [place] Ketones Ql (U) Negative NEGATIVE [place], [place] Leukocyte esterase Test strip Ql (U) SMALL Abnormal NEGATIVE [place], [place] Nitrite, Urine Negative NEGATIVE [facility], [place] pH, UA 6.5 [place], [place] Protein (U) [Mass/Vol] TRACE Abnormal NEGATIVE [place], [place] Specific [place], UA 1.020 [place], [place] Turbidity UA CLEAR CLEAR [place], [place] Urinalysis Comments NOT REPORTED [facility], [place] Urine Hgb 3+ Abnormal NEGATIVE [facility], [place] Urobilinogen, Urine Normal Normal [place], [place] Urinalysis, Routineon 2018 Acetoacetic Acid,Ur Negative Normal NEG [facility] Comment on above: Performed By: #### T YS #### [facility] [address] [place], [place] [address] Tile Molder: Mario Anne MD Bilirubin, SemiQt,Ur Negative Normal NEG [facility] Comment on above: Performed By: #### T YS #### [facility] [address] [place] [address] Tile Molder: Mario Anne MD Color (U) YELLOW Normal YEL [facility] Comment on above: Performed By: #### T YS #### [facility] [address] [place] [address] Tile Molder: Mario Anne MD Glucose Ql (U) Negative Normal [facility] Comment on above: Performed By: #### T YS #### [facility] [address] [place] [address] Tile Molder: Mario Anne MD Hemoglobin, Ur 3+ Abnormal NEG [facility] Comment on above: Performed By: #### T YS #### [facility] [address] [place], [place] [id number] Tile Molder: Mario Anne MD Leukocyte esterase Test strip Ql (U) SMALL Abnormal NEG [facility] Comment on above: Performed By: #### T YS #### [facility] [address] [place] [address] Tile Molder: Mario Anne MD Nitrite,Ur Negative Normal [facility] Comment on above: Performed By: #### T YS #### [facility] [address] [place] [address] Tile Molder: Mario Anne MD pH (U) 6.5 [pH] Normal 5.0-9.0 [facility] Comment on above: Performed By: #### T YS #### [facility] [address] [place] [address] Tile Molder: Mario Anne MD Protein Ql (U) TRACE Abnormal NEG [facility] Comment on above: Performed By: #### T YS #### [facility] [address] [place], [place] [id number] Tile Molder: Mario Anne MD Specific gravity (U) [Rel density] 1.020 Normal 1.010-1.020 [facility] Comment on above: Performed By: #### T YS #### [facility] [address] [place], [place] [address] Tile Molder: Mario Anne MD Turbidity CLEAR Normal CLEAR [facility] Comment on above: Performed By: #### T YS #### [facility] [address] [place], [place] [address] Tile Molder: Mario Anne MD Urobilinogen,Ur Normal Normal NORM [facility] Comment on above: Performed By: #### T YS #### [facility] [address] [place], [place] 65[address] Tile Molder: Mario Anne MD Comment NOT REPORTED Normal [facility] Comment on above: Performed By: #### T YS #### [facility] [address] [place], [place] [id number] Tile Molder: Mario Anne MD Urinalysis,Microon 9 ----- Normal [facility] Comment on above: Performed By: #### T YS #### [facility] [address] [place], [place] [id number] Tile Molder: Mario Anne MD Epithelial cells LM.HPF (Urine sed) [#/Area] 2 TO 5 Normal 0-25 [facility] Comment on above: Performed By: #### T YS #### [facility] [address] [place] [address] Tile Molder: Mario Anne MD RBC (U) [#/Vol] 5 TO 10 Normal 0-2 [facility] Comment on above: Performed By: #### T YS #### [facility] [address] [place] [address] Tile Molder: Mario Anne MD WBC (U) [#/Vol] 10 TO 20 Normal 0-5 [facility] Comment on above: Performed By: #### T YS #### [facility] [address] [place] [address] Tile Molder: Mario Anne MD Amorphous sediment LM Ql (Urine sed) NOT REPORTED Normal [facility] Comment on above: Performed By: #### T YS #### [facility] [address] [place] [address] Tile Molder: Mario Anne MD Bacteria LM.HPF (Urine sed) [#/Area] NOT REPORTED Normal [facility] Comment on above: Performed By: #### T YS #### [facility] [address] [place] [address] Tile Molder: Mario Anne MD Casts LM.LPF (Urine sed) [#/Area] NOT REPORTED Normal [facility] Comment on above: Performed By: #### T YS #### [facility] [address] [place] [address] Tile Molder: Mario Anne MD Crystals LM Nom (Urine sed) NOT REPORTED Normal [facility] Comment on above: Performed By: #### T YS #### [facility] [address] [place] [address] Tile Molder: Mario Anne MD Epithelial, Renal NOT REPORTED Normal 0 [facility] Comment on above: Performed By: #### T YS #### [facility] [address] [place], [place] [address] Tile Molder: Mario Anne MD Mucus Strands NOT REPORTED Normal [facility] Comment on above: Performed By: #### T YS #### [facility] [address] [place], [place] [address] Tile Molder: Mario Anne MD Other Observations NOT REPORTED Normal NREQ [facility] Comment on above: Performed By: #### T YS #### [facility] [address] [place], [place] [id number] Tile Molder: Mario Anne MD Trichomonas NOT REPORTED Normal [facility] Comment on above: Performed By: #### T YS #### [facility] [address] [place], [place] [id number] Tile Molder: Mario Anne MD Yeast LM Ql (Urine sed) NOT REPORTED Normal [facility] Comment on above: Performed By: #### T YS #### [facility] [address] [place], [place] [id number] Tile Molder: Mario Anne MD Venous Blood Gaseson 019 HCO3 (Bld) [Moles/Vol] 20.5 mmol/L Low 24.0-30.0 [facility] Comment on above: Performed By: #### V BG ####[facility] , [place] 2148883 Lab Director: Mario Anne MD Negative Base Excess 2.9 mmol/L High 0.0-2.0 [facility] Comment on above: Performed By: #### V BG ####[facility] [place], [place] 618[address] Lab Director: Mario Anne MD Oxygen (Bld) [Partial pressure] 22.2 mm[Hg] Low 30.0-50.0 [facility] Comment on above: Performed By: #### V BG ####[address] [place] [address] Lab Director: Mario Anne MD Oxygen saturation in Blood 40.2 % Low 60.0-85.0 [facility] Comment on above: Performed By: #### V BG ####[address] , [place] 467[address] Lab Director: Mraio Anne MD pCO2 31.9 Low 39-55 [facility] Comment on above: Performed By: #### V BG ####[address] , [place] [address] Lab Director: Mario Anne MD pH (Bld) 7.425 [pH] High 7.32-7.42 [facility] Comment on above: Performed By: #### V BG ####[address] [place] [address] Lab Director: Mario Anne MD Marco Test NOT REPORTED Normal [facility] Comment on above: Performed By: #### V BG ####[address] [place] [address] Lab Director: Mario Anne MD Body Temp. NOT REPORTED Normal [facility] Comment on above: Performed By: #### V BG ####[address] [place] [address] Lab Director: Mario Anne MD Carboxy Hgb NOT REPORTED Normal 0-5 [facility] Comment on above: Performed By: #### V BG ####[address] [place] [address] Lab Director: Mario Anne MD FIO2 NOT REPORTED Normal [facility] Comment on above: Performed By: #### V BG ####[address] , [place] 7697[address] Lab Director: Mario Anne MD Methemoglobin NOT REPORTED Normal 0.0-1.9 [facility] Comment on above: Performed By: #### V BG ####[address] [place] [address] Lab Director: Mario Anne MD Mode NOT REPORTED Normal [facility] Comment on above: Performed By: #### V BG ####[address] , [place] 97[address] Lab Director: Mario Anne MD Notification Time NOT REPORTED Normal [facility] Comment on above: Performed By: #### V BG ####[address] , [place] 6[address]83 Lab Director: Mario Anne MD Notification: NOT REPORTED Normal [facility] Comment on above: Performed By: #### V BG ####[address] , [facility]83 Lab Director: Mario Anne MD O2 Device/Flow/% NOT REPORTED Normal [facility] Comment on above: Performed By: #### V BG ####[address] , [place] 8[address]83 Lab Director: Mario Anne MD Oxyhemoglobin NOT REPORTED Normal 95.0-98.0 [facility] Comment on above: Performed By: #### V BG ####[address] , [place] [id number] Lab Director: Mario Anne MD Pco2 Adj'd for Temp. NOT REPORTED Normal 39.0-55.0 [facility] Comment on above: Performed By: #### V BG ####[address] [place] [address] Lab Director: Mario Anne MD PEEP/CPAP NOT REPORTED Normal [facility] Comment on above: Performed By: #### V BG ####[address] [place] [address] Lab Director: Mario Anne MD pH Adjst'd for Temp. NOT REPORTED Normal 7.320-7.420 M [facility] Comment on above: Performed By: #### V BG ####[address] [place] [address] Lab Director: Mario Anne MD pO2 Adj'd for Temp. NOT REPORTED Normal 30.0-50.0 [facility] Comment on above: Performed By: #### V BG ####[address] [place] [address] Lab Director: Mario Anne MD Positive Base Excess NOT REPORTED Normal 0.0-2.0 [facility] Comment on above: Performed By: #### V BG ####[address] [place] [address] Lab Director: Mario Anne MD PSV NOT REPORTED Normal [facility] Comment on above: Performed By: #### V BG ####[address] [place] [address] Lab Director: Mario Anne MD Pt. Position NOT REPORTED Normal [facility] in [facility] Comment on above: Performed By: #### V BG ####[address] [place] [address] Lab Director: Mario Anne MD Set Rate NOT REPORTED Normal [facility] Comment on above: Performed By: #### V BG ####[address] [place] [address] Lab Director: Mario Anne MD Site Drawn NOT REPORTED Normal [facility] Comment on above: Performed By: #### V BG ####[address] [place] [address] Lab Director: Mario Anne MD Text for Respiratory NOT REPORTED Normal [facility] Comment on above: Performed By: #### V BG ####[facility] [place] [address] Lab Director: Mario Anne MD Total Hb NOT REPORTED Normal 12.0-16.0 [facility] Comment on above: Performed By: #### V BG ####[facility] [place] [address] Lab Director: Mario Anne MD Total Rate NOT REPORTED Normal [facility] Comment on above: Performed By: #### V BG ####[facility] [place] [address] lab Director: Mario Anne MD VT NOT REPORTED Normal [facility] Comment on above: Performed By: #### V BG ####[facility] [place] [address] lab Director: Mario Anne MD XR [...] Matt Mayer MD 11/28/18 Final result Normal [facility] Cardiomegaly and congestion magnified by technique. No airspace consolidation. [facility]- [place], [place] Bonifacio, Mhpn Incoming Radiant Results From [employer] - 11/28/2018 8:56 PM EDT EXAMINATION: ONE XRAY VIEW OF THE CHEST 11/28/2018 7:38 pm COMPARISON: None. HISTORY: ORDERING SYSTEM PROVIDED HISTORY: R/O PNA TECHNOLOGIST PROVIDED HISTORY: R/O PNA FINDINGS: Mild congestion, likely magnified by technique. No airspace consolidation, effusion, or pneumothorax. Borderline cardiomegaly. IMPRESSION: Cardiomegaly and congestion magnified by technique. No airspace consolidation. [place], [place] EXAMINATION: ONE XRA Y VIEW OF THE CHEST 11/28/2018 7:38 pm COMPARISON: None. HISTORY: ORDERING SYSTEM PROVIDED HISTORY: R/O PNA TECHNOLOGIST PROVIDED HISTORY: R/O PNA FINDINGS: Mild congestion, likely magnified by technique. No airspace consolidation, effusion, or pneumothorax. Borderline cardiomegaly. [place], [place] CMV Ab,IgGon 11-27-2018 CMV Ab,IgG 0.1 Normal <0.9 [facility] Comment on above: Result Comment: Reference Range: [...] FA2, MATIAS, TOXOG, HSVM12, CMVG, FA5 #### [facility] [address] [place] [id number] Tile Molder: Geo Mar MD #### CBC, FIB #### [address] [place] [address] Tile Molder: Mario Anne MD #### APROTS, APARVP, APROTC, ARUBGM #### [facility] [address] [place] [address] Tile Molder: Fernando Valencia MD #### LUPPRO #### [address] [id number] Tile Molder: Geo Mar MD [facility] [address] [place] [address] [place] [address] Tile Molder: Mario Anne MD CMV Ab,IgMon 11-27-2018 CMV Ab,IgM 0.4 Normal <0.9 [facility] Comment on above: Result Comment: Reference Range: [...] findings. Performed By: #### C BC #### [facility] [address] [place] [address] [place] [address] Tile Molder: Mario Anne MD CBCon 11-25-2018 Erythrocyte distribution width (RBC) [Ratio] 13.2 % Normal 11.8-14.4 [facility] Comment on above: Performed By: #### T OXOM, HSVG12, CMVM, FA2, MATIAS, TOXOG, HSVM12, CMVG, FA5 #### [address] [id number] Tile Molder: Geo Mar MD #### CBC, FIB #### [address] [place] [address] Tile Molder: Mario Anne MD #### APROTS, APARVP, APROTC, ARUBGM #### [facility] [address] [place], [place] [id number] Tile Molder: Fernando Valencia MD #### LUPPRO #### [facility] [address] [place] [id number] Tile Molder: Geo Mar MD [address] [place] [address] Tile Molder: Mario Anne MD Hematocrit (Bld) [Volume fraction] 30.4 % Low 36.3-47.1 [facility] Comment on above: Performed By: #### T OXOM, HSVG12, CMVM, FA2, MATIAS, TOXOG, HSVM12, CMVG, FA5 #### [address] [address] Tile Molder: Geo Mar MD #### CBC, FIB #### [address] [place] [address] Tile Molder: Mario Anne MD #### APROTS, APARVP, APROTC, ARUBGM #### [facility] [address] [place] [address] Tile Molder: Fernando Valencia MD #### LUPPRO #### [address] [address] Tile Molder: Geo Mar MD [address] [place] [phone] Tile Molder: Mario Anne MD Hemoglobin (Bld) [Mass/Vol] 9.7 g/dL Low 11.9-15.1 [facility] Comment on above: Performed By: #### T OXOM, HSVG12, CMVM, FA2, MATIAS, TOXOG, HSVM12, CMVG, FA5 #### [address] [address] Tile Molder: Geo Mar MD #### CBC, FIB #### [address] [place], [place] 909[address]83 Tile Molder: Mario Anne MD #### APROTS, APARVP, APROTC, ARUBGM #### [facility] [address] [place] [address] Tile Molder: Fernando Valencia MD #### LUPPRO #### [address] [address] Tile Molder: Geo Mar MD [address] [place], [place] 1403383 Tile Molder: Mario Anne MD MCH (RBC) [Entitic mass] 28.2 pg Normal 25.2-33.5 [facility] Comment on above: Performed By: #### T OXOM, HSVG12, CMVM, FA2, MATIAS, TOXOG, HSVM12, CMVG, FA5 #### [address] [address] Tile Molder: Geo Mar MD #### CBC, FIB #### [address] [place] [phone] Tile Molder: Mario Anne MD #### APROTS, APARVP, APROTC, ARUBGM #### [facility] [address] [place] [address] Tile Molder: Fernando Valencia MD #### LUPPRO #### [address] [address] Tile Molder: Geo Mar MD [address] [place] [phone] Tile Molder: Mario Anne MD MCHC (RBC) [Mass/Vol] 31.9 g/dL Normal 28.4-34.8 [facility] Comment on above: Performed By: #### T OXOM, HSVG12, CMVM, FA2, MATIAS, TOXOG, HSVM12, CMVG, FA5 #### [address] [address] Tile Molder: Geo Mar MD #### CBC, FIB #### [address] [place] [phone] Tile Molder: Mario Anne MD #### APROTS, APARVP, APROTC, ARUBGM #### [facility] [address] [place] [address] Tile Molder: Fernando Valencia MD #### LUPPRO #### [address] [address] Tile Molder: Geo Mar MD [facility] [address] [place] [address] [place], [place] 2838483 Tile Molder: Mario Anne MD MCV (RBC) [Entitic vol] 88.4 fL Normal 82.6-102.9 [facility] Comment on above: Performed By: #### T OXOM, HSVG12, CMVM, FA2, MATIAS, TOXOG, HSVM12, CMVG, FA5 #### [address] [id number] Tile Molder: Geo Mar MD #### CBC, FIB #### [address] [place] [address] Tile Molder: Mario Anne MD #### APROTS, APARVP, APROTC, ARUBGM #### [facility] [address] [place], [place] [id number] Tile Molder: Fernando Valencia MD #### LUPPRO #### [address] [id number] Tile Molder: Geo Mar MD [address] [place] [phone] Tile Molder: Mario Anne MD NRBC Automated 0.0 per 100 WBC Normal 0.0 [facility] Comment on above: Performed By: #### T OXOM, HSVG12, CMVM, FA2, MATIAS, TOXOG, HSVM12, CMVG, FA5 #### [address] [address] Tile Molder: Geo Mar MD #### CBC, FIB #### [address] [place] [address] Tile Molder: Mario Anne MD #### APROTS, APARVP, APROTC, ARUBGM #### [facility] [address] [place] [address] Tile Molder: Fernando Valencia MD #### LUPPRO #### [address] [address] Tile Molder: Geo Mar MD [address] [place] [phone] Tile Molder: Mario Anne MD Platelet mean volume (Bld) [Entitic vol] 10.4 fL Normal 8.1-13.5 [facility] Comment on above: Performed By: #### T OXOM, HSVG12, CMVM, FA2, MATIAS, TOXOG, HSVM12, CMVG, FA5 #### [address] [address] Tile Molder: Geo Mar MD #### CBC, FIB #### [address] [place] [phone] Tile Molder: Mario Anne MD #### APROTS, APARVP, APROTC, ARUBGM #### [facility] [address] [place], [place] [id number] Tile Molder: Fernando Valencia MD #### LUPPRO #### [address] [address] Tile Molder: Geo Mar MD [address] [place] [address] Tile Molder: Mario Anne MD Platelets (Bld) [#/Vol] 247 10*3/uL Normal 138-453 [facility] Comment on above: Performed By: #### T OXOM, HSVG12, CMVM, FA2, MATIAS, TOXOG, HSVM12, CMVG, FA5 #### [address] [address] Tile Molder: Geo Mar MD #### CBC, FIB #### [address] [place] [id number] Tile Molder: Mario Anne MD #### APROTS, APARVP, APROTC, ARUBGM #### [facility] [address] [place], [place] [id number] Tile Molder: Fernando Valencia MD #### LUPPRO #### [address] [address] Tile Molder: Geo Mar MD [address] [place] [address] Tile Molder: Mario Anne MD RBC (Bld) [#/Vol] 3.44 10*6/uL Low 3.95-5.11 [facility] Comment on above: Performed By: #### T OXOM, HSVG12, CMVM, FA2, MATIAS, TOXOG, HSVM12, CMVG, FA5 #### [address] [address] Tile Molder: Geo Mar MD #### CBC, FIB #### [address] [place] [phone] Tile Molder: Mario Anne MD #### APROTS, APARVP, APROTC, ARUBGM #### [facility] [address] [place], [place] [id number] Tile Molder: Fernando Vlaencia MD #### LUPPRO #### [address] [address] Tile Molder: Geo Mar MD [address] [place] [phone] Tile Molder: Mario Anne MD WBC (Bld) [#/Vol] 13.1 10*3/uL High 3.5-11.3 [facility] Comment on above: Performed By: #### T OXOM, HSVG12, CMVM, FA2, MATIAS, TOXOG, HSVM12, CMVG, FA5 #### [place] [address] [place], [place] [id number] Tile Molder: Geo Mar MD #### CBC, FIB #### [facility] [address] [place], [place] [phone] Tile Molder: Mario Anne MD #### APROTS, APARVP, APROTC, ARUBGM #### [facility] [address] [place] [address] Tile Molder: Fernando Valencia MD #### LUPPRO #### [facility] [address] [place] [address] Tile Molder: Geo Mar MD [address] [place] [address] Tile Molder: Mario Anne MD Drug Scr, Abuse, Uron 2018 Amphetamine(s),Ur Negative Normal NEG [facility] Comment on above: Performed By: #### D AU ####[address] [place] [address] Lab Director: Mario Anne MD Barbiturate(s),Ur Negative Normal [facility] Comment on above: Performed By: #### D AU ####[address] [place] [address] Lab Director: Mario Anne MD Base excess Calc (Bld) [Moles/Vol] Negative Normal [facility] Comment on above: Performed By: #### D AU ####[address] , [place] [id number] Lab Director: Mario Anne MD Benzodiazepine(s) Negative Normal [facility] Comment on above: Performed By: #### D AU ####[address] , [place] [id number] Lab Director: Mario Anne MD Buprenorphrine, Ur Negative Normal [facility] Comment on above: Performed By: #### D AU ####[address] [place] [address] Lab Director: Mario Anne MD Cannabinoid(s),Ur Negative Normal [facility] Comment on above: Performed By: #### D AU ####[address] [place] [address] Lab Director: Mario Anne MD Methadone Ql (U) Negative Normal NEG [facility] Comment on above: Performed By: #### D AU ####[address] [place] [phone] Lab Director: Mario Anne MD Methamphetamine, Ur Negative Normal NEG [facility] Comment on above: Performed By: #### D AU ####[address] , [place] [address] [facility] Director: Mario Anne MD Opiate(s), Ur Negative Normal NEG [facility] Comment on above: Performed By: #### D AU ####[address] [place] [phone] Lab Director: Mario Anne MD Oxycodone, Urine Negative Normal [facility] Comment on above: Performed By: #### D AU ####[address] , [facility]83 Lab Director: Mario Anne MD Phencyclidine, Ur Negative Normal NEG [facility] Comment on above: Performed By: #### D AU ####[address] [place] [phone] Lab Director: Mario Anne MD Propoxyphene,Urine Negative Normal [facility] Comment on above: Performed By: #### D AU ####[address] , [place] [id number] Lab Director: Mario Anne MD Tricyclic antidepressants Screen Ql (U) Negative Normal [facility] Comment on above: Result Comment: Drug screen results are to be used for medical purposes only. All positive results are unconfirmed. Testing for employment or legal uses should be sent to a reference laboratory for confirmation. Performed By: #### D AU ####[facility] [place], [place] [id number] [facility] Director: Mario Anne MD Interpretive Info NOT REPORTED Normal [facility] Comment on above: Performed By: #### D AU ####[address] [place] [address] [facility] Director: Mario Anne MD MDMA, Urine NOT REPORTED Normal NEG [facility] Comment on above: Performed By: #### D AU ####[address] [place], [place] [id number] [facility] Director: Mario Anne MD Fibrinogenon 11-25-2018 Fibrinogen 465 mg/dL High 185-451 [facility] Comment on above: Performed By: #### T OXOM, HSVG12, CMVM, FA2, MATIAS, TOXOG, HSVM12, CMVG, FA5 #### [address] [id number] Tile Molder: Geo Mar MD #### CBC, FIB #### [address] [place], [place] [id number] Tile Molder: Mario Anne MD #### APROTS, APARVP, APROTC, ARUBGM #### [facility] [address] [place] [address] Tile Molder: Fernando Valencia MD #### LUPPRO #### [address] [id number] Tile Molder: Geo Mar MD [address] [place] [address] Tile Molder: Mario Anne MD Hgb/Hcton 11-25-2018 Hematocrit (Bld) [Volume fraction] 30.4 % Low 36.3-47.1 [facility] Comment on above: Performed By: #### H H ####[address] , [place] [id number] Lab Director: Mario Anne MD Hemoglobin (Bld) [Mass/Vol] 9.8 g/dL Low 11.9-15.1 [facility] Comment on above: Performed By: #### H H ####[address] [place] [address] Lab Director: Mario Anne MD Lupus Anticoagulanton 2018 aPTT Coag (Bld) [Time] 27.1 s Normal 23.2-34.4 [facility] Comment on above: Performed By: #### C BC #### [facility] [address] [place] [address] Dr. [place], [facility]83 Tile Molder: Mario Anne MD INR Coag (PPP) [Relative time] 0.9 {INR} Normal 0.9-1.2 [facility] Comment on above: Performed By: #### C BC #### [address] [place], [place] [id number] Tile Molder: Mario Anne MD PT Coag (PPP) [Time] 9.7 s Normal 9.7-12.2 [facility] Comment on above: Performed By: #### C BC #### [facility] [address] [place] [address] Dr[place], [facility] Tile Molder: Mario Anne MD Lupus Anticoagulant NOT REPORTED Normal [facility] Comment on above: Performed By: #### C BC #### [address] [place], [place] [id number] Tile Molder: Mario Anne MD Rubella Ab, IgGon 11-25-2018 Rubella Ab, IgG 27.5 IU/mL Normal [facility] Comment on above: Result Comment: REFERENCE RANGE: <5.0 NON-REACTIVE (non-immune) 5.0 TO 9.9 EQUIVOCAL >=10.0 REACTIVE (immune) Performed By: #### T OXOM, HSVG12, CMVM, FA2, MATIAS, TOXOG, HSVM12, CMVG, FA5 #### [address] [id number] Tile Molder: Geo Mar MD #### CBC, FIB #### [facility] [address] [place] [address] Tile Molder: Mario Anne MD #### APROTS, APARVP, APROTC, ARUBGM #### [facility] [address] [place] [address] Tile Molder: Fernando Valencia MD #### LUPPRO #### [address] [id number] Tile Molder: Geo Mar MD [address] [place] [address] Tile Molder: Mario Anne MD Surgical Pathologyon 019 Surgical Pathology (NOTE) [id number] [facility] ANATOMIC PATHOLOGY [address] [place] [id number] SURGICAL PATHOLOGY CONSULTATION Patient Name: DEION CUMMINGS [facility] Rec: [id number] Path Number: [id number] Collected: 11/25/2018 Received: 11/29/2018 Reported: 11/30/2018 16:37 [...] villous capillaries: Rare Other: Few microcalcifications Normal [facility] Comment on above: Performed By: #### T OXOM, HSVG12, CMVM, FA2, MATIAS, TOXOG, HSVM12, CMVG, FA5 #### [facility] [address] [place] [address] [id number] Tile Molder: Geo Mar MD #### CBC, FIB #### [facility] [address] [place] [address] [place] [address] Tile Molder: Mario Anne MD #### APROTS, APARVP, APROTC, ARUBGM #### [facility] [address] [place] [address] Tile Molder: Fernando Valencia MD #### LUPPRO #### [address] [id number] Tile Molder: Geo Mar MD [facility] [address] [place] [address] [place] [address] Tile Molder: Mario Anne MD Thyroid Stim. Horm.on 2018 TSH Qn 1.78 m[IU]/L Normal 0.30-5.00 [facility] Comment on above: Performed By: #### T SH ####[facility] [place] [address] [place] [address] Lab Director: Mario Anne MD Toxoplasma Ab,IgGon 11-26-19 19 Toxoplasma Ab,IgG <0.5 Normal [facility] Comment on above: Result Comment: REFERENCE [...] FA2, MATIAS, TOXOG, HSVM12, CMVG, FA5 #### [address] [id number] Tile Molder: Geo Mar MD #### CBC, FIB #### [address] [place] [address] Tile Molder: Mario Anne MD #### APROTS, APARVP, APROTC, ARUBGM #### [facility] [address] [place], [place] [id number] Tile Molder: Fernando Valencia MD #### LUPPRO #### [address] [id number] Tile Molder: Geo Mar MD [facility] [address] [place] [address] Tile Molder: Mario Anne MD Toxoplasma Ab,IgMon 11-26-19 19 Toxoplasma Ab,IgM 0.55 Index Normal [facility] Comment on above: Result Comment: REFERENCE RANGE: <0.90 NON-REACTIVE 0.90 TO 1.00 INDETERMINANT >=1.10 REACTIVE Performed By: #### T OXOM, HSVG12, CMVM, FA2, MATIAS, TOXOG, HSVM12, CMVG, FA5 #### [facility] [address] [place], [place] [id number] Tile Molder: Geo Mar MD #### CBC, FIB #### [address] [place] [address] Tile Molder: Mario Anne MD #### APROTS, APARVP, APROTC, ARUBGM #### [facility] [address] [place] [address] Tile Molder: Fernando Valencia MD #### LUPPRO #### [address] [place], [place] [id number] Tile Molder: Geo Mar MD [address] [place] [address] Tile Molder: Mario Anne MD Type + Screenon 11-25-2018 Type + Screen Sample Expiration 11/28/2018 Arm Band Number [id number] ABO/Rh(D) O POSITIVE Antibody Screen NEGATIVE Normal [facility] Comment on above: Performed By: #### T YS ####[address] [place] [address] Lab Director: Mario Anne MD CBCon 11-24-2018 Erythrocyte distribution width (RBC) [Ratio] 13.2 % Normal 11.8-14.4 [facility] Comment on above: Performed By: #### C BC #### [address] [place] [address] Tile Molder: Mario Anne MD Hematocrit (Bld) [Volume fraction] 31.6 % Low 36.3-47.1 [facility] Comment on above: Performed By: #### C BC #### [address] [place] [address] Tile Molder: Mario Anne MD Hemoglobin (Bld) [Mass/Vol] 10.1 g/dL Low 11.9-15.1 [facility] Comment on above: Performed By: #### C BC #### [facility] [address] [place] [address] [place] [address] Tile Molder: Mario Anne MD MCH (RBC) [Entitic mass] 28.1 pg Normal 25.2-33.5 [facility] Comment on above: Performed By: #### C BC #### [facility] [address] [place], [facility]83 Tile Molder: Mario Anne MD MCHC (RBC) [Mass/Vol] 32.0 g/dL Normal 28.4-34.8 [facility] Comment on above: Performed By: #### C BC #### [address] [place], [facility]83 Tile Molder: Mario Anne MD MCV (RBC) [Entitic vol] 88.0 fL Normal 82.6-102.9 [facility] Comment on above: Performed By: #### C BC #### [address] [place], [facility]83 Tile Molder: Mario Anne MD NRBC Automated 0.0 per 100 WBC Normal 0.0 [facility] Comment on above: Performed By: #### C BC #### [address] [place], [facility] Tile Molder: Mario Anne MD Platelet mean volume (Bld) [Entitic vol] 10.1 fL Normal 8.1-13.5 [facility] Comment on above: Performed By: #### C BC #### [address] [place], [facility]83 Tile Molder: Mario Anne MD Platelets (Bld) [#/Vol] 246 10*3/uL Normal 138-453 [facility] Comment on above: Performed By: #### C BC #### [facility] [address] [place] [address] Tile Molder: Mario Anne MD RBC (Bld) [#/Vol] 3.59 10*6/uL Low 3.95-5.11 [facility] Comment on above: Performed By: #### C BC #### [facility] [address] [place] [id number] Tile Molder: Mario Anne MD WBC (Bld) [#/Vol] 10.7 10*3/uL Normal 3.5-11.3 [facility] Comment on above: Performed By: #### C BC #### [facility] [address] [place], [place] [id number] Tile Molder: Mario Anne MD Type + Screenon 11-24-2018 Type + Screen Sample Expiration 11/27/2018 Arm Band Number [id number] ABO/Rh(D) O POSITIVE Antibody Screen NEGATIVE Normal [facility] Comment on above: Performed By: #### T YS #### [facility] [address] [place], [place] [id number] Tile Molder: Mario Anne MD US OB 14 PLUS [...] Luis Adam MD 11/24/18 Final result Normal [facility] US OB TRANSVAGINALon US OB TRANSVAGINAL EXAMINATION: [...] [place]: Not visualized Pole: Single pole [place] Rump Length: 7.11 cm Heart Rate: 145 [...] Grzegorz Vicente MD 09/30/18 Final result Normal [facility] ABO/Rhon 09-17-2018 ABO and Rh group Nom (Bld) O Positive [facility] HCG (QUANTITATIVE)on Beta HCG ( test) Ql (U) Males and non females: <5 mIU/mL Females during : 3-4 weeks 9-130 mIU/mL 4-5 weeks 75-2600 mIU/mL 5-6 weeks 850-20,800 mIU/mL 6-7 weeks 4000-100,200 mIU/mL 7-12 weeks 11,500-289,000 mIU/mL 12-16 weeks 18,300-137,000 mIU/mL 16-29 weeks 1,400-53,000 mIU/mL 29-41 weeks 940-60,000 mIU/mL [facility] [place] [address] m[IU]/mL High [facility] Interpretation and review of laboratory results Abnormal [facility] Vital Signs Date Time Vital Sign Value Performing Clinician Facility 11-30-2018 08:46-0400 Body Temperature 97.9 [degF] [place], [place] 11-30-2018 08:46-0400 BP Diastolic 85 mm[Hg] [place], [place] 11-30-2018 08:46-0400 BP Systolic 133 mm[Hg] [place] 11-30-2018 08:46-0400 Pulse (Heart Rate) 80 /min [place] 11-30-2018 08:46-0400 Pulse Oximetry 99 % [place] 11-30-2018 08:46-0400 Respiratory Rate 18 /min [place] 11-30-2018 04:30-0400 BMI (Body Mass Index) 54.64 kg/m2 [place] 11-30-2018 04:30-0400 Body weight 167.83 kg [place] 11-29-2018 08:35-0400 Height 175.3 cm [place] 11-28-2018 21:40-0400 Respiratory rate NOT REPORTED [facility] Comment on above: Performed By: #### VBG ####[facility] [place] [address] Lab Director: Mario Anne MD 11-28-2018 19:51-0400 Respiratory rate NOT REPORTED Art Ugarte [facility] SHIRA Harris 09-17-2018 00:04-0400 BMI (Body Mass Index) 54.93 kg/m2 Jenniferzoey Vivar [facility] 09-17-2018 00:04-0400 Body Temperature 98.29 [degF] Jennifer Vivar [facility] 09-17-2018 00:04-0400 Body weight 168.74 kg Jenniferzoey Vivar [facility] 09-17-2018 00:04-0400 BP Diastolic 91 mm[Hg] [facility] 09-17-2018 00:04-0400 BP Systolic 170 mm[Hg] [facility] 09-17-2018 00:04-0400 Height 175.3 cm [facility] 09-17-2018 00:04-0400 Pulse (Heart Rate) 95 /min [facility] 09-17-2018 00:04-0400 Pulse Oximetry 98 % [facility] 09-17-2018 00:04-0400 Respiratory Rate 16 /min [facility] Encounters Encounter Date Encounter Type Care Provider [...] Start: 04-29-2021 End: 04-30-2021 ambulatory [facility] Start: 04-29-2021 End: 04-29-2021 Subsequent hospital visit by physician Mike Osullivan MD Work Phone: [facility] Comment on above: Abnormal menstrual p eriods Start: 04-08-2020 End: 04-08-2020 Subsequent hospital visit by physician Mike Vincentflorenitn [facility] Start: 11-28-2018 End: 11-30-2018 Evaluation and management of inpatient [facility] Start: 11-28-2018 End: 11-30-2018 Evaluation and management of inpatient Art Ugarte Work Phone: [facility] Comment on above: Sepsis, due to unspe cified organism (HCC) (Primary Dx) Start: 11-24-2018 End: 11-25-2018 Evaluation and management of inpatient [facility] Start: 09-30-2018 End: 09-30-2018 Patient encounter procedure [facility] Start: 09-17-2018 End: 09-17-2018 Emergency department patient visit [facility] Start: 09-17-2018 End: 09-17-2018 Emergency department patient visit [facility] Work Phone: [facility] Emergency Department Comment on above: Vaginal bleeding in (Primary Dx) Procedures Date Procedure Procedure Detail Performing Clinician Start: 04-29-2021 Gonadotropin chorionic quantitative Vadim Joyce 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 Work Phone: Start: 04-08-2020 Assay of insulin [...] RAMIREZ Y Start: 11-29-2018 IP CONSULT TO WAXER TENDER MIKE OSULLIVAN Start: 11-29-2018 NOTIFY PHYSICIAN (SPECIFY) [...] pelvic nonobstetric real-time image complete Art A Torito Work Phone: Start: 11-28-2018 Radiologic exam chest single view MIKE HOY Start: 11-28-2018 Ct abdomen & pelvis [...] Urnls dip stick/tablet rgnt auto w/o microscopy [employer] Work Phone: Start: 11-28-2018 Assay of lactate MIKE OSULLIVAN Start: 11-28-2018 Culture bacterial blood aerobic w/id isolates MIKE HOY Start: 11-28-2018 Radiologic exam chest single view [employer] Work Phone: Start: 11-28-2018 Ct abdomen & pelvis w/o contrast material [employer] Work Phone: Start: 11-28-2018 Ecg routine ecg w/least 12 lds w/i&r [employer] Work Phone: Start: 11-28-2018 Assay of lipase [employer] Phone: Start: 11-28-2018 Blood count complete auto&auto difrntl wbc [employer] Work Phone: Start: 11-28-2018 Prothrombin time [employer] Phone: Start: 11-28-2018 Thromboplastin time partial plasma/whole blood [employer] Phone: Start: 11-28-2018 Blood gases any combination ph pco2 po2 co2 hco3 [employer] Phone: Start: 11-28-2018 Culture bacterial blood aerobic w/id isolates [employer] Work Phone: Start: 11-28-2018 LACTATE, SEPSIS [employer] Work Phone: Start: 11-25-2018 HEMOGLOBIN AND HEMATOCRIT, [...] 11-19-2020 Influenza vaccination Flu vaccine (# 1) [facility] Start: 11-20-2019 Influenza vaccination Flu vaccine (# 1) [place] Start: 11-19-2018 Influenza vaccination Flu vaccine (# 1) [place] Start: 2014 Cervical cancer screen Cervical canc er screen [place], [place] Start: 2014 Screening for malign ant neoplasm of cervix [facility] Start: 2012 DTaP/Tdap/Td vaccine (1 - Tdap) DTaP/Tdap/Td vaccine (1 - Tdap) [facility] Start: 2008 HIV screen HIV screen [place], [place] Start: 2008 HIV screening HIV screen [facility] Start: 2008 HPV vaccine (1 - Fem kililan 3-dose series) HPV vaccine (1 - Female 3-dose series) [place], [place] Start: 2006 Varicella Vaccine (1 of 2 - 13+ 2-dose series) Varicella Vaccine (1 of 2 - 13+ 2-dose series) [place] Start: 2005 Depression Screen Depression Screen [facility] Start: 1999 Pneumococcal 0-64 ye ars Vaccine (1 of 1 - PPSV23) Pneumococcal 0-64 years Vaccine (1 of 1 - PPSV23) [place] Start: 1999 Pneumococcal 0-64 ye ars Vaccine (1 of 2 - PPSV23) Pneumococcal 0-64 years Vaccine (1 of 2 - PPSV23) [facility] Start: 1998 COVID-19 Vaccine (1) COVID-19 Vaccin e (1) [facility] Start: 1994 Varicella vaccine (1 of 2 - 2-dose childhood series) Varicella vaccine (1 of 2 - 2-dose childhood series) [facility] Start: 1993 Hepatitis C screening Hepatitis C sc reen [facility] Bacteria identified Cx Nom (U) Urine Culture Microbiology STAT 11/28/2018 9:39 PM EDT [place], [place] CBC CBC Lab Routine Daily until discontinued starting 11/30/2018, 1 completed [place] Comment on above: Daily until disconti nued starting 11/30/2018, 1 completed Comprehensive Metabo lic Panel w/ Reflex to MG Comprehensive Metabolic Panel w/ Reflex to MG Lab Routine Daily until discontinued starting 11/30/2018, 1 completed [place] Comment on above: Daily until disconti nued starting 11/30/2018, 1 completed Culture blood #1 Culture blood # 1 Microbiology STAT 11/28/2018 7:30 PM EDT [place] Culture Blood #2 Culture Blood # 2 Microbiology Routine 11/29/2018 8:20 AM EDT [place] EKG 12 lead EKG 12 lead ECG STAT 11/28/2018 7:50 PM EDT [place] Initiate Oxygen Ther apy Protocol Initiate Oxygen Therapy Protocol Respiratory Care Routine Daily until discontinued starting 11/29/2018 [place] Comment on above: Daily until disconti nued starting 11/29/2018 End: 12-02-2018 Vancomycin, trough Vancomycin, trough Lab Timed One Time for 1 Occurrences starting 12/02/2018 until 12/02/2018 [place] Comment on above: One Time for 1 Occur rences starting 12/02/2018 until 12/02/2018 Payers Date Payer Category Payer Unknown [id number] 2018 Unknown xxxxxxxxxxxx 1. [id number] 2014 Unknown [id number] 1. [id number] 1993 Unknown [id number] 2.16.8 [id number] 1993 Unknown [id number] 2.16.8 [id number] 1993 Unknown [id number] 2.16.8 [id number] 1993 Unknown [id number] 2.16.8 [id number] 1993 Unknown [id number] 2.16.84 [id number] 1993 Unknown [id number] 2.16.84 [id number] 1993 Unknown [id number] 2.16.84 [id number] 1993 Unknown [id number] 2.16.84 [id number] 1993 Unknown [id number] 2.16.84 [id number] 1993 Unknown [id number] 2.16.84 [id number] 1993 Unknown [id number] 2.16.84 [id number] 1993 Unknown [id number] 2.16.84 [id number] 1961 Medicaid [id number] 1961 Self-pay [id number] 1961 Unknown [id number] Social History Date Type Detail Facility Start: 11-25-2018 End: 11-28-2018 Tobacco smoking status NHIS Current every day smoker [facility] Start: 11-28-2018 Alcohol intake Not Currently [facility] Start: 1993 Sex Assigned At Not on file [facility] Start: 11-25-2018 End: 11-28-2018 Tobacco use and exposure Never used [employer] Start: 11-28-2018 Alcohol intake Ex-drinker (finding) [facility] Start: 09-17-2018 Cigarettes smoked current (pack per day) - Reported [facility] Start: 09-17-2018 History SDOH Alcohol Frequency 1 [facility] Evaluation note Note Date & Type Note Facility Evaluation note Diagnosis Abnormal menstrual periods documented in this encounter [facility] Work Phone: Summary Purpose Family History No Family History Records FoundNo Family History Records FoundNo Family History Records FoundNo Family History Records FoundNo Family History Records Found Advance Directives No Advanced Directives Records FoundDocuments on File Type Date Recorded Patient Foreign Policy Officer Expl anation Advance Directives and Living Will Power of Antiquer Latest Code Status on File Code Status Date Activated Date Inactivated Comments Full Code 11/28/2018 11:54 PM Full Code 11/25/2018 5:09 AM 11/25/2018 10:15 PM Full Code 11/25/2018 3:30 AM 11/25/2018 5:09 AM Documents on File Type Date Recorded Patient Foreign Policy Officer Expl anation ACP-Advance Directive ACP-Power of Antiquer Latest Code Status on File Code Status Date Activated Date Inactivated Comments Full Code 11/28/2018 11:54 PM 11/30/2018 4:25 PM Documents on File Type Date Recorded Patient Foreign Policy Officer Expl anation Advance Directives and Livin g Will 09/17/2018 12:02 AM Discharge Instructions * Instructions* Dona Vargas RN - 11/30/2018 Follow up with OB as scheduled Stay hydrated Elevated leg while sitting/laying As needed miralax for constipation documented in this encounter* Attachments The following attachments cannot be sent through Care Everywhere. * : Vaginal Bleeding (Eritrean) documented in this encounter History of Present [...] when pt backin bed. * Argenis Daniel [facility] - 11/30/2018 7:23 AM EDT [facility] Department Pharmacy Vancomycin Consult: Vancomycin [...] bedside at this time. Patient resides in [place] with her parents. She uses no DME and has no outside services or community resources currently in place. Patient is employed at [employer] but is currently off work. Patient does drive, provides for her own transportation needs. PCP is Dr. Osullivan. Patient denies having difficulty with affording her medications. Plan for Patient is home upon discharge. She is interested in pursuing Advanced Directives. Educational pamphlet provided at this time. Referral made to [facility] to follow up with this request. DOMESTIC CLEANER to monitor for discharge needs and assist as they arise. ULICES [place] 11/29/2018 * Florinda Muir RN - 11/29/2018 11:09 AM EDT Unsuccessful attempt x2 for new IV access. Passenger Rate Clerk called and will be up to [...] 5. Fluid Accumulation-Mild fluid accumulation, Extremities 6. Teacher Specialist Strength-Not measured Nutrition Risk Level: Moderate, Low [...] Change: , none significant per available data. [place] Body Wt: 145 lb (65.8 kg), % [place] Body 255% BMI Classification: BMI > or [...] Pertinent Labs, Weight, Patient/Family Education Contact Number: [phone] * Florinda Muir RN - 11/29/2018 8:30 AM EDT Locket Maker called into room by lab, patient c/o [...] Spoke with Dr. Pond regarding consult to FAGOT HEATER HELPER. She is aware of patient, and will speak with Andres DOW in the morning. * Epi Jacques [facility] - 11/28/2018 9:25 PM EDT Pharmacy Note [...] consult. Will continue to follow. Epi Jacques [facility] 11/28/2018 9:25 PM documented in this encounter [...] section and content) DATE CREATED AUTHOR 11/17/2018 [facility] DATE CREATED AUTHOR AUTHOR'S ORGANIZ ATION 12/04/2018 [facility] DATE CREATED AUTHOR AUTHOR'S ORGANIZ ATION 04/30/2021 [facility] DATE CREATED AUTHOR AUTHOR'S ORGANIZ ATION 05/14/2022 [facility] dical Specialist DATE CREATED AUTHOR AUTHOR'S ORGANIZ ATION 07/21/2022 [facility] Reason for Visit (unrecogniz ed section and content) Reason Comments Fatigue BEGAN 1730 TODAY, po st x3 days, baby born at 22 weeks, Chills Fever Status Reason Specialty Diagnoses / Procedures Referre d By Contact Referred To Contact Diagnoses Sepsis (HCC) Sepsis (HCC) Brenton Horton MD [address] [place] [address], [place] [address] [facility] Reason Comments Vaginal Bleeding Zo Bee RN - 09/17/2018 12:03 AM EDT ED Notes (unrecognized secti on and content) Bleeding started within the last hour, pt is 11weeks and 5 days. Pt states bleeding is only when she wipes after using the rest room. documented in this encounter Care Teams (unrecognized sec tion and content) Councillor [employer] Relationship Specialty Start Date End Date Mike Osullivan MD [address] [id number] PCP - General Family Medicine 11/24/18 FOR [...] BE BASED ON THE PRIMARY CLINICAL RECORDS. [employer] provides no warranty or guarantee of the accuracy or completeness of information in this document.
[2023-05-25] MEDS: HYDROCODONE/ACET 5-325 MG TABLET 4 TAB PO (07:06)
--- NOTE | 2023-05-25 07:06 | PC.NURSE ---
This nurse accompanied Dr. Salcedo in the room with the patient while she attempted movement. Pt states I feel better than I did when I got here but not well enough to go to work This nurse removed pt's IV and stated I would return with discharge instructions shortly. When this nurse returned with discharge information pt stated I would like to retract my statement, I do not feel the least bit better, I feel exactly the same way as I did when I came in and I would like that to be noted This nurse informed Dr. Salcedo Pt will be sent home with Adel to go
[2023-05-25 07:19] VITALS: BP 168/92
== END 2023-05-25 07:16 | disposition home or self-care (01) ==
PROVIDERS: Emergency Provider Internal Medicine; PCP Family Medicine
DX: M54.41 Lumbago with sciatica, right side (principal); F17.200 Nicotine dependence, unspecified, uncomplicated
CPT/HCPCS: 36415; 80048; 85025; 85652; 86140; 96365; 96366; 96375; 99284; J2930

== ENCOUNTER 2023-05-27 15:36 | Outpatient (OUT) | payer OTHER, SELFPAY ==
--- NOTE | 2023-05-27 15:52 | XR_ITS ---
The [address] [address] Patient Name: DEION HUITRON MRN: [id number] date: 1995 Sex: F Assigned Patient Location: [facility] Current Patient Location: Accession/Order Number: [id number] Exam Date: 05/27/2023 15:49 Report Date: 05/28/2023 08:31 At the request of: MIKE ALICIA Procedure: XR lumbar spine min 4V EXAMINATION: XR lumbar spine min 4V HISTORY: Low Back Pain M54.50 ; acute low back pain, right radiculopathy; no known injury COMPARISON: No relevant comparison available. FINDINGS: BONES: No significant spondylosis, scoliosis, fracture, or visible bony lesion. DISC SPACES: Moderate narrowing L5-S1. PARASPINOUS: Negative. No paraspinous abnormality is seen. OTHER: Negative. XR/XR lumbar spine min 4V IMPRESSION: 1. Mild-moderate narrowing of the L5-S1 disc space suggestive of degenerative disc disease. 2. No acute bone abnormality. Electronically authenticated by: ARACELI PARKS Date: 05/28/2023 08:31
== END 2023-05-27 15:37 | disposition home or self-care (01) ==
LOC: RAD 15:36
PROVIDERS: PCP Family Medicine; Visit Provider Family Medicine
DX: M54.50 Low back pain, unspecified (principal)
CPT/HCPCS: 72110

== ENCOUNTER 2023-06-09 15:39 | Outpatient (OUT) | payer OTHER, SELFPAY ==
--- NOTE | 2023-06-09 15:45 | MR_ITS ---
The [place] [id number] Patient Name: DEION HUITRON MRN: [id number] date: 1995 Sex: F Assigned Patient Location: MRI Current Patient Location: MRI Accession/Order Number: [id number] Exam Date: 06/09/2023 16:18 Report Date: 06/09/2023 18:03 At the request of: MIKE ALICIA Procedure: MR lumbar spine wo con MR lumbar spine wo con, 06/09/2023 4:18 PM EDT INDICATION: Lumbar Radiculopathy, M54.16 COMPARISON: Prior x-ray of the lumbar spine dated 05/27/2023 and 09/19/2021 TECHNIQUE: Multiplanar, multisequential MRI images of lumbar spine were obtained without contrast. FINDINGS: For dictation purposes, the lowest complete disc space in the lumbar spine considered as L5-S1. There is loss of normal physiologic lumbar lordosis. The vertebral height is preserved. The conus medullaris is at the level of L1. No signal abnormality within the visualized spinal cord is noted. No neural foraminal narrowing or canal stenoses at the level of L1-L2 and L2-L3 and L3-L4 is noted. At the level of L4-5, there are disc bulge with superimposed central right lateral disc extrusion with inferior migration with mild right neuroforaminal narrowing. There is severe canal stenosis posterior to the body of L4. The disc extrusion is in close contact with the right L5 and possibly S1 in the lateral recess. At the level of L5-S1, there are disc bulge with mild bilateral neuroforaminal narrowing and no canal stenosis. 7 mm synovial cyst lateral to the left facet joint at this level is noted with no definite encroachment on the nerve. The paraspinal muscles are unremarkable. MR/MR lumbar spine wo con IMPRESSION: Significant degenerative changes of lumbar spine in particular at L4-L5 where there is a central and right lateral disc extrusion with inferior migration causing severe canal stenosis posterior to the L4. There is a mass effect on the right L5 and possibly S1 in the lateral recess. A stat note was submitted to inform the clinician at the 6:02 PM. Electronically authenticated by: AZAR IRENE Date: 06/09/2023 18:03
== END 2023-06-09 15:40 | disposition home or self-care (01) ==
PROVIDERS: PCP Family Medicine; Visit Provider Family Medicine
DX: M54.16 Radiculopathy, lumbar region (principal)
CPT/HCPCS: 72148

== ENCOUNTER 2023-07-11 14:24 | Outpatient (OUT) | payer OTHER, SELFPAY ==
--- NOTE | 2023-07-11 16:04 | P.CN_ITS ---
Consult Note: HPI Data of Consult Patient: new to practice Consult date: 07/11/23 Requesting Physician: Wolf Mendosa MD Primary Care Provider: Shashi Osullivan MD Consult Narrative Reason for consult: low back, right leg pain Narrative: 28yof who presents for evaluation. worsening pain from low back to right leg. imaging reviewed, which shows disc herniation at right l4-5 with impingement of l5 nerve root. has engaged in >6 weeks of provider directed home exercise program, without benefit. uses diclofenac and tizanidine, with some benefit. cc:: CC: Wolf Mendosa MD Review of Systems ROS Status of ROS 10 or more systems reviewed and unremark able except as noted in history and below [facility] Medical History (Updated 07/11/23 @ 16:06 by Wolf Mendosa MD) History of stress test ?Z92.89 - Personal history of other medical treatment (ICD-10) Low back pain ?M54.50 - Low back pain, unspecified (ICD-10) Anxiety ?F41.9 - Anxiety disorder, unspecified (ICD-10) Obesity ?E66.9 - Obesity, unspecified (ICD-10) Asthma ?J45.909 - Unspecified asthma, uncomplicated (ICD-10) Palpitations ?R00.2 - Palpitations (ICD-10) Surgical History History of wisdom tooth extraction ?K08.409 - Partial loss of teeth, unspecified cause, unspecified class (ICD- 10) Social History Smoking status: Current every day smoker Meds Home Medications and Allergies Home Medications ?Medication ?Instructions ?Recorded ?Confirmed ?Type diclofenac sodium 75 mg 75 mg PO Q12H 07/11/23 07/11/23 History tablet,delayed release valacyclovir 1 gram tablet 1,000 mg PO Q8H 07/11/23 07/11/23 History Allergies Allergy/AdvReac Type Severity Reaction Status Date / Time sulfamethoxazole Allergy Verified 05/25/23 04:53 [From Bactrim] trimethoprim [From Bactrim] Allergy Verified 05/25/23 04:53 Exam Narrative Exam Narrative: Psych-alert and oriented x 3. Attentive and appropriate, constitutionally normal, displays normal mood and affect per situation. There are no obvious deficits in memory, reasoning, or intellect.? Skin-no obvious rashes, bruising, erythema noted to the patient's area of pain.? Extremities- extremities are warm with minimal edema and palpable pulses. Lumbar-tenderness to palpation noted in the lumbar spine and paraspinal musculature. Pain is elicited with flexion, extension, and lateral rotation of the lumbar spine. Range of motion is diminished with these motions. Facet loading maneuvers are positive..? Strength-noted to be unremarkable with the exception of decreased strength rated at 4 out of 5 in right quadriceps femoris, anterior tibialis. Sensory-no notable sensory deficits in the bilateral lower extremities to touch or pinprick in all dermatomal distributions with the exception to decreased sensation to the right L3, 4, 5 dermatomal distribution Coordination remains intact.? Gait remains non-antalgic. Assessment and Plan Assessment and Plan (1) Lumbar stenosis with neurogenic claudication: Plan 28yof who presents for evaluation. failed conservative measures, as noted. given imaging and symptoms, prudent to attempt right L4-5, L5-S1 tfesi under fluoroscopic guidance x2. she is in agreement. meds reviewed, no changes. follow up after procedure.
== END 2023-07-11 14:25 | disposition home or self-care (01) ==
LOC: PM 14:24
PROVIDERS: PCP Family Medicine; Visit Provider Anesthesiology
DX: M48.062 Spinal stenosis, lumbar region with neurogenic claudication (principal)
CPT/HCPCS: G0463

== ENCOUNTER 2023-07-25 08:53 | Day surgery (SDC) | payer OTHER, SELFPAY ==
[2023-07-25 09:15] VITALS: BP 172/101; PULSE 93; TEMP 36.8; O2SAT 100
[2023-07-25 09:22] LABS: HCG Qualitative NEGATIVE (NEGATIVE)
[2023-07-25 09:57] VITALS: BP 150/93; BP 165/90; PULSE 93; PULSE 98; O2SAT 98; O2SAT 99
[2023-07-25] MEDS: TRIAMCINOLONE ACETONIDE 40 MG/ML VIAL 80 MG INJ (09:57)
[2023-07-25] MEDS: 0.9 % SODIUM CHLORIDE 10 ML SYRINGE - SALINE FLUSH INJ (09:57)
[2023-07-25] MEDS: LIDOCAINE HCL 2% PF 100 MG/5 ML VIAL INJ (09:57)
[2023-07-25] MEDS: IOHEXOL 240 MG/ML - 10 ML VIAL INJ (09:57)
[2023-07-25] MEDS: BUPIVACAINE HCL 0.25% PF 25 MG/10 ML VIAL INJ (09:57)
--- NOTE | 2023-07-25 10:04 | P.ON_ITS ---
Date of procedure: 07/25/23 Pre-op diagnosis: Lumbar stenosis with neurogenic claudication Post-op diagnosis: same as pre-op Procedure: Procedure: Right L4-5, l5-S1 transforaminal epidural steroid injection Medications: Bupivacaine 0.25% 2cc, lidocaine 2% 1cc, kenalog 80mg The patient was seen and examined in the preoperative holding area.? Informed consent was obtained and placed on the chart.? Patient was brought to the medical procedure unit and placed in the prone position where a timeout was completed verifying the correct patient, procedure site, position, and planned special equipment using sterile aseptic technique.? Under direct fluoroscopic visualization a 25-gauge Quincke tipped spinal needle was advanced to the designated neural foramen where contrast dye was injected to show adequate spread.? The needle was inserted at level right L4-5. There was no evidence of vascular or adverse uptake.? Epidural spread was appreciated.? The above- mentioned injectate was then placed in a 1.5 mL aliquot preceded by negative aspiration.? The needle was removed. The needle was inserted and the procedure repeated at level right L5-S1.? The surgery site was covered.? Patient was taken to the postprocedural recovery area and monitored for an appropriate length of time before found suitable for discharge in the accompaniment of a responsible adult. Anesthesia: Local Surgeon: Wolf Mendosa Pathology: none sent Condition: stable Disposition: no change
== END 2023-07-25 10:08 | disposition home or self-care (01) ==
PROVIDERS: PCP Family Medicine; Visit Provider Anesthesiology
DX: M48.062 Spinal stenosis, lumbar region with neurogenic claudication (principal)
CPT/HCPCS: 36415; 64483; 64484; 84703; Q9966

== ENCOUNTER 2023-08-08 08:39 | Day surgery (SDC) | payer OTHER, SELFPAY ==
[2023-08-08 09:07] LABS: HCG Qualitative NEGATIVE (NEGATIVE)
[2023-08-08 09:19] VITALS: BP 151/105; PULSE 79; TEMP 36.6; O2SAT 98
[2023-08-08] MEDS: 0.9 % SODIUM CHLORIDE 10 ML SYRINGE - SALINE FLUSH INJ (09:37)
[2023-08-08] MEDS: BUPIVACAINE HCL 0.25% PF 25 MG/10 ML VIAL INJ (09:37)
[2023-08-08] MEDS: TRIAMCINOLONE ACETONIDE 40 MG/ML VIAL INJ (09:37)
[2023-08-08] MEDS: IOHEXOL 240 MG/ML - 10 ML VIAL INJ (09:38)
[2023-08-08] MEDS: LIDOCAINE HCL 2% PF 100 MG/5 ML VIAL INJ (09:38)
[2023-08-08 09:39] VITALS: BP 149/95; BP 158/93; PULSE 74; PULSE 80; O2SAT 99
--- NOTE | 2023-08-08 09:40 | P.ON_ITS ---
Date of procedure: 08/08/23 Pre-op diagnosis: Lumbar stenosis with neurogenic claudication Post-op diagnosis: same as pre-op Procedure: Procedure: Right L4-5, L5-S1 transforaminal epidural steroid injection Medications: Bupivacaine 0.25% 2cc, lidocaine 2% 1cc, kenalog 80mg The patient was seen and examined in the preoperative holding area.? Informed consent was obtained and placed on the chart.? Patient was brought to the medical procedure unit and placed in the prone position where a timeout was completed verifying the correct patient, procedure site, position, and planned special equipment using sterile aseptic technique.? Under direct fluoroscopic visualization a 25-gauge Quincke tipped spinal needle was advanced to the designated neural foramen where contrast dye was injected to show adequate spread.? The needle was inserted at level right L4-5. There was no evidence of vascular or adverse uptake.? Epidural spread was appreciated.? The above- mentioned injectate was then placed in a 1.5 mL aliquot preceded by negative aspiration.? The needle was removed. The needle was inserted and the procedure repeated at level right L5-S1.? The surgery site was covered.? Patient was taken to the postprocedural recovery area and monitored for an appropriate length of time before found suitable for discharge in the accompaniment of a responsible adult. Anesthesia: Local Surgeon: Wolf Mendosa Pathology: none sent Condition: stable Disposition: no change
== END 2023-08-08 09:45 | disposition home or self-care (01) ==
LOC: SURGOUT 08:39
PROVIDERS: PCP Family Medicine; Visit Provider Anesthesiology
DX: M48.062 Spinal stenosis, lumbar region with neurogenic claudication (principal)
CPT/HCPCS: 36415; 64483; 64484; 84703; Q9966

== ENCOUNTER 2023-08-18 15:02 | Outpatient (OUT) | payer OTHER, SELFPAY ==
--- NOTE | 2023-08-18 15:13 | P.CN_ITS ---
Consult Note: HPI Data of Consult Patient: known to practice within the last 3 years Consult date: 07/11/23 Requesting Physician: Peggy Rodriguez NP Primary Care Provider: Shashi Osullivan MD Consult Narrative Reason for consult: low back, right leg pain Narrative: 28yof who presents for evaluation. worsening pain from low back to right leg. imaging reviewed, which shows disc herniation at right l4-5 with impingement of l5 nerve root. has engaged in >6 weeks of provider directed home exercise program, without benefit. uses diclofenac and tizanidine, with some benefit. Recently underwent right L4-5 L5-S1 TFESI x2 with 90% improvement ongoing. Significant functional improvement, now able to ambulate and drive. cc:: CC: Peggy Rodriguez NP Review of Systems ROS Status of ROS 10 or more systems reviewed and unremark able except as noted in history and below Musculoskeletal Reports: back pain PFSH PFS Medical History (Updated 07/11/23 @ 16:06 by Wolf Mendosa MD) History of stress test ?Z92.89 - Personal history of other medical treatment (ICD-10) Low back pain ?M54.50 - Low back pain, unspecified (ICD-10) Anxiety ?F41.9 - Anxiety disorder, unspecified (ICD-10) Obesity ?E66.9 - Obesity, unspecified (ICD-10) Asthma ?J45.909 - Unspecified asthma, uncomplicated (ICD-10) Palpitations ?R00.2 - Palpitations (ICD-10) Surgical History History of wisdom tooth extraction ?K08.409 - Partial loss of teeth, unspecified cause, unspecified class (ICD- 10) Social History Smoking status: Current every day smoker Meds Home Medications and Allergies Home Medications ?Medication ?Instructions ?Recorded ?Confirmed ?Type valacyclovir 1 gram tablet 1,000 mg PO Q8H 07/11/23 08/08/23 History ibuprofen 600 mg tablet (IBU) 600 mg PO TID-QID PRN pain 07/25/23 08/08/23 History Allergies Allergy/AdvReac Type Severity Reaction Status Date / Time docosanol [From Abreva] Allergy Mild SWELLING Verified 08/08/23 09:16 sulfamethoxazole Allergy Verified 08/08/23 09:16 [From Bactrim] trimethoprim [From Bactrim] Allergy Verified 08/08/23 09:16 Exam Constitutional Documenting provider has reviewed patient's vital signs: yes Common normals: no apparent distress, oriented x3, healthy appearing, alert and well nourished General appearance: cooperative HENMT Common normals: normocephalic, hearing grossly normal bilaterally and moist oral mucous membranes Head and scalp: normocephalic Eye Common normals: PERRL Pupil: PERRL Neck & C-Spine Common normals: full ROM General: normal visual inspection Chest Common normals: inspection of chest normal Respiratory Common normals: normal respiratory effort, no retractions and no use of accessory muscles Back & Pelvis Lumbar spine/lower back: normal to inspection, lumbar ROM normal and straight leg raise negative bilaterally Neuro Common normals: oriented x3, CN's II-XII intact bilaterally, moves all extremities, no focal motor deficits, no sensory deficits noted and deep tendon reflexes 2+ bilaterally Sensorium/orientation: alert Motor exam: strength 5/5 throughout and no movement abnormalities noted Psych Common normals: mental status grossly normal, thought process normal, cooperative, affect normal, speech normal and activity/motor behavior normal Speech: normal speech Thought process: normal thought process Results Additional Findings Additional findings: If on a controlled substance or opioids, I have checked an [place] report on this patient and there are no aberrancies noted in the prescribing history.??If on a controlled substance or opioid a drug screen was completed and reviewed within the last year, and if there has not been a drug screen completed we ordered one today to monitor higher risk, state monitored pain medication use. As part of providing excellent, safe, comprehensive care, the following was completed at our patient's visit: 1. A medication reconciliation and review to ensure accurate knowledge of current/active medications, including asking our patients to inform us about any [id number] medications or herbal remedies/nutritional supplements/alternative remedies. 2. A review to specifically ensure our patients have had annual screening for screening for depression, screening for tobacco use, and screening for unhealthy alcohol use. For concerning screenings had a discussion with the patient, provided patient education, and recommended follow-up with primary care provider when appropriate. If patient noted with a risk of falling, they received education on strength, gait, and balance training to prevent future risk of falling. Assessment and Plan Assessment and Plan (1) Lumbar stenosis with neurogenic claudication: Plan 90% improvement from Right L4-5 L5-S1 TFESI x2 continue current medications f/u 3 months, sooner if needed
== END 2023-08-18 15:03 | disposition home or self-care (01) ==
LOC: PM 15:02
PROVIDERS: PCP Family Medicine; Visit Provider Nurse Practitioner
DX: M48.062 Spinal stenosis, lumbar region with neurogenic claudication (principal)
CPT/HCPCS: G0463

== ENCOUNTER 2023-12-22 14:13 | Outpatient (OUT) | payer OTHER, SELFPAY ==
--- OUTSIDE RECORDS SUMMARY | 2023-12-22 14:38 | XMS_ITS | CCD ---
Author Organization [facility] CliniSyid Care Team Providers Care Hoseman Name Role Phone JENNIFER IVVAR Attending Unavailable HOY, MIKE Primary Care Unavailable Vincenty, Mike M Primary Care Provider [phone] RNOY OSULLIVANLAS M Primary Care Unavailable JENINFER HEDRICK Admitting Unavailable JENNIFER HEDRICK Attending Unavailable RAVIN, MIKE M Primary Care Unavailable BRENTON HORTON Admitting Unavailable BRENTON HORTON Attending Unavailable LARISSA SAMPSON Consulting Unavail able ABEBE STEPHENS Admitting Unavailable ERASTO STEPHENSE Attending Unavailable Rony Osullivanlas M Primary Care Provider Ravin, Mike Primary Care Provider Mike Osullivan MD Primary Care Provider [phone] VADIM LOVELACE Referring Unavailable HOY, MIKE M [...] Attending Stiven BABIN, DR ÁNGEL Garcia Consulting UnavailMIKE Reynolds Primary Care Unavailable ADALID PEREZ Consulting Unavailable Deondre SHI, Wolf Martinez Attending Unavailable Deondre SHI, Wolf Martinez Attending Unavailable Deondre SHI, Wolf Martinez Attending Unavailable Allergies Allergy Classification Reported Allergen(s) Allergy Type Date of Onset Reaction(s) Facility (5 sources) docosanol; Translations: [Unknown] Drug Allergy 9 [facility] Repository (1 source) docosanol Drug Allergy [facility] Repository (1 source) Sulfamethoxazole / Trimethoprim Drug Allergy 0 [facility] Medications Current Medications Medication Drug Class(es) Dates Sig (Normalized) Sig (Original) acetaminophen 325 mg oral tablet (2 sources) Start: 11-28-2018 End: 11-28-2018 650 mg, Oral, EVERY 4 HOURS PRN, Fever, For temp greater than 100.5 F (38 C), Starting 11/28/18 at 2353 Maximum dose of acetaminophen is [...] every week vitamin D (ERGOCALCIFEROL) 1.25 MG (38438 UT) CAPS capsule Take 1 capsule by [...] Starting Tue11/28/18 at 2353 polyethylene glycol 3350 [id number] mg powder for oral solution (1 source) [...] chloride 9 mg/ml injection (6 sources) Start: 09-11-2 019 10 mL, Intravenous, EVERY 12 HOURS SCHEDULED (2 times per day), First dose on Tue11/29/18 at 0900 Start: 11-29-2018 Intravenous, a t 125 mL/hr, CONTINUOUS, Starting Tue11/29/18 at 0015 Start: 11-28-2018 take 10 mL intraveno us route once as needed 10 mL, Intravenous, PRN, Line Care, After every IV line use, Starting Tue11/28/18 at 2353 Start: 11-28-2018 sodium chlorid e [...] Range Facility XR Chest 2 Views*on 05-13-19 XR Chest 2 Views* HISTORY: Cough and shortness of breath COMPARISON: None available TECHNIQUE: Frontal and lateral views of the chest FINDINGS: The cardiomediastinal silhouette is within normal limits. No pneumothorax, pleural effusion, or consolidation. Bones of the thorax appear intact. IMPRESSION: No radiographic evidence of acute intrathoracic process. Report reported and signed by Hitesh Norman on 05/13/[address] [facility] Special[facility] Covid-19 PCR (CVDTBH)on 02-19 SARS-CoV-2 (COVID-19) RNA CLIFF+probe Ql (Unsp spec) Detected Critically abnormal NOT DETECTED [facility] Comment on above: Result Comment: This test is not yet approved or cleared by the [place] FDA. When there are no FDA-approved or cleared tests available, and other criteria are met, FDA can make tests available under an emergency access mechanism called an Emergency Use Authorization (EUA). The EUA for this test is supported by the [employer] of Health and Human Service's declaration that [...] longer be used). Performed By: #### C VDTBH #### [facility] [address] [place] [address] Dr. Lilli Soriano INFLUENZA A AND B AGon 03-18 INFLUANEGH SEE BELOW Normal [facility] Comment on above: Result Comment: Nega tive for Flu A protein angiten. Infection due to Flu A cannot be ruled out. Flu A angiten in the sample may be below the detection limit of the test. Performed By: #### I NFLUAB #### [facility] [address] [place] [address] Dr. Lilli Soriano INFLUBNEG SEE BELOW Normal [facility] Comment on above: Result Comment: Nega tive for Flu B protein antigen. Infection due to Flu B cannot be ruled out. Flu B antigen in the sample may be below the detection limit of the test. Performed By: #### I NFLUAB #### [facility] [address] [place] [address] Dr. Lilli Soriano INFLUENZA A AG Negative Normal NEGATIVE SEE COMMENT [facility] Comment on above: Performed By: #### I NFLUAB #### [facility] [address] [address] [address] Lilli Soriano INFLUENZA B AG Negative Normal NEGATIVE SEE COMMENT [facility] Comment on above: Performed By: #### I NFLUAB #### [facility] [id number] Lilli Soriano US Pelvic, Transvaginalon US [...] by Burton Mcdaniel on 12/24/2021 0958 Normal [facility] Covid-19 PCR (CVDTBH)on 11-21 SARS-CoV-2 (COVID-19) RNA CLIFF+probe Ql (Unsp spec) Not detected Normal NOT DETECTED [facility] Comment on above: Result Comment: This test is not yet approved or cleared by the [place] FDA. When there are no FDA-approved or cleared tests available, and other criteria are met, FDA can make tests available under an emergency access mechanism called an Emergency Use Authorization (EUA). The EUA for this test is supported by the [place] of Health and Human Service's (HHS's) declaration [...] SARS-CoV-2. Performed By: #### C VDTBH #### [facility] [id number] Lilli Soriano VC VENOUS REFLUX GRACIELA LMTon 0 12-04-2021 VC VENOUS REFLUX GRACIELA LMT Patient: DEION CUMMINGS Exam Date: 12/04/2021 : 1995 Gender:F Ordering : DR MIKE OSULLIVAN . Admission #: [id number] Family : Order #: [id number] CLICK HERE TO VIEW EXAM RADIOLOGY REPORT [...] chronic thrombus visualized. Compressibility: Normal Flow: Normal Motel Maid: Dist/med calf 2.1mm with 0s reflux. Dist/med [...] MD on 12/04/2021 at 09:37 Normal [facility] INSULINon 11-26-2021 Insulin 21.8 uIU/mL Normal 2.6-24.9 [facility] Comment on above: Performed By: #### I NSULIN #### [facility] [address] [place] [address] Dr. Lilli Soriano T4, T3U, FTI LABCORPon 11-26 Free Thyroxine Index 2.2 Normal 1.2-4.9 [facility] Comment on above: Performed By: #### B CASH REGISTER OPERATOR, TSH, LIPID, CMP #### [facility] [address] [address] [address] Lilli Soriano T3 Uptake 30 % Normal 24-39 [facility] Comment on above: Performed By: #### B CASH REGISTER OPERATOR, TSH, LIPID, CMP #### [facility] [address] [place] [address] Dr. Lilli Soriano T4 [Mass/Vol] 7.3 ug/dL Normal 4.5-12.0 [facility] Comment on above: Performed By: #### B CASH REGISTER OPERATOR, TSH, LIPID, CMP #### [facility] [address] [place] [address] Dr. Lilli Soriano BNPon 11-25-2021 Natriuretic peptide B (Bld) [Mass/Vol] 35.0 pg/mL Normal <=450.0 [facility] Comment on above: Performed By: #### B CASH REGISTER OPERATOR, TSH, LIPID, CMP #### [facility] [address] [place] [address] Dr. Lilli Soriano CBC AUTO DIFFon 11-25-2021 BASO # 0.0 103/ul Normal 0.0-0.1 [facility] Comment on above: Performed By: #### B CASH REGISTER OPERATOR, TSH, LIPID, CMP #### [facility] [address] [place] [address] Dr. Lilli Soriano Basophils/100 WBC (Bld) 0.5 % Normal 0.2-2.0 [facility] Comment on above: Performed By: #### B CASH REGISTER OPERATOR, TSH, LIPID, CMP #### [facility] [address] [place] [address] Dr. Lilli Soriano EO # 0.1 103/ul Normal 0.0-0.7 [facility] Comment on above: Performed By: #### B CASH REGISTER OPERATOR, TSH, LIPID, CMP #### [facility] [address] [place] [address] Dr. Lilli Soriano Eosinophils/100 WBC (Bld) 1.7 % Normal 0.9-7.0 [facility] Comment on above: Performed By: #### B CASH REGISTER OPERATOR, TSH, LIPID, CMP #### [facility] [address] [place] [address] Dr. Lilli Soriano Erythrocyte distribution width (RBC) [Ratio] 13.6 % Normal 11.0-15.0 [facility] Comment on above: Performed By: #### B CASH REGISTER OPERATOR, TSH, LIPID, CMP #### [facility] [address] [place] [address] Dr. Lilli Soriano Hematocrit (Bld) [Volume fraction] 42.6 % Normal 36.0-48.0 [facility] Comment on above: Performed By: #### B CASH REGISTER OPERATOR, TSH, LIPID, CMP #### [facility] [address] [place] [address] Dr. Lilli Soriano Hemoglobin (Bld) [Mass/Vol] 13.6 g/dL Normal 12.0-16.0 [facility] Comment on above: Performed By: #### B CASH REGISTER OPERATOR, TSH, LIPID, CMP #### [facility] [address] [place] [address] Dr. Lilli Soriano IG # 0.04 10e3/ul Critically high 0.00-0.03 [facility] Comment on above: Performed By: #### B CASH REGISTER OPERATOR, TSH, LIPID, CMP #### [facility] [address] [place] [address] Dr. Lilli Soriano IG % 0.5 % Normal 0.0-0.5 [facility] Comment on above: Performed By: #### B CASH REGISTER OPERATOR, TSH, LIPID, CMP #### [facility] [address] [place] [address] Dr. Lilli Soriano LYMPH # 1.7 103/ul Normal 1.2-3.8 [facility] Comment on above: Performed By: #### B CASH REGISTER OPERATOR, TSH, LIPID, CMP #### [facility] [address] [place] [address] Dr. Lilli Soriano Lymphocytes/100 WBC (Bld) 19.9 % Critically low 20.5-60.0 [facility] Comment on above: Performed By: #### B CASH REGISTER OPERATOR, TSH, LIPID, CMP #### [facility] [address] [place] [address] Dr. Lilli Soriano MANUAL DIFF REQ NO Normal [facility] Comment on above: Performed By: #### B CASH REGISTER OPERATOR, TSH, LIPID, CMP #### [facility] [address] [place] [address] Dr. Lilli Soriano MCH (RBC) [Entitic mass] 28.0 pg Normal 26.7-34.0 [facility] Comment on above: Performed By: #### B CASH REGISTER OPERATOR, TSH, LIPID, CMP #### [facility] [address] [place] [address] Dr. Lilli Soriano MCHC (RBC) [Mass/Vol] 31.9 g/dL Normal 29.9-35.2 [facility] Comment on above: Performed By: #### B CASH REGISTER OPERATOR, TSH, LIPID, CMP #### [facility] [address] [place] [address] Dr. Lilli Soriano MCV (RBC) [Entitic vol] 87.7 fL Normal 81.0-99.0 [facility] Comment on above: Performed By: #### B CASH REGISTER OPERATOR, TSH, LIPID, CMP #### [facility] [address] [place] [address] Dr. Lilli Soriano MONO # 0.5 103/ul Normal 0.3-0.8 [facility] Comment on above: Performed By: #### B CASH REGISTER OPERATOR, TSH, LIPID, CMP #### [facility] [address] [place] [address] Dr. Lilli Soriano Monocytes/100 WBC (Bld) 5.9 % Normal 1.7-12.0 [facility] Comment on above: Performed By: #### B CASH REGISTER OPERATOR, TSH, LIPID, CMP #### [facility] [address] [place] [address] Dr. Lilli Soriano NEUT # 6.1 103/ul Normal 1.4-6.5 [facility] Comment on above: Performed By: #### B CASH REGISTER OPERATOR, TSH, LIPID, CMP #### [facility] [address] [place] [address] Dr. Lilli Soriano Neutrophils/100 WBC (Bld) 71.5 % Normal 43.0-75.0 [facility] Comment on above: Performed By: #### B CASH REGISTER OPERATOR, TSH, LIPID, CMP #### [facility] [address] [place] [address] Dr. Lilli Soriano Platelet mean volume (Bld) [Entitic vol] 9.7 fL Normal 9.5-13.5 [facility] Comment on above: Performed By: #### B CASH REGISTER OPERATOR, TSH, LIPID, CMP #### [facility] [address] [place] [address] Dr. Lilli Soriano PLT 289 103/ul Normal 150-450 [facility] Comment on above: Performed By: #### B CASH REGISTER OPERATOR, TSH, LIPID, CMP #### [facility] [address] [place] [address] Dr. Lilli Soriano RBC 4.86 106/ul Normal 4.20-5.40 [facility] Comment on above: Performed By: #### B CASH REGISTER OPERATOR, TSH, LIPID, CMP #### [facility] [address] [place] [address] Dr. Lilli Soriano WBC 8.5 103/ul Normal 4.0-11.0 [facility] Comment on above: Performed By: #### B CASH REGISTER OPERATOR, TSH, LIPID, CMP #### [facility] [address] [place] [address] Dr. Lilli Soriano CULTURE URINEon 11-25-2021 CULTURE URINE Culture Observations : LIGHT GROWTH OF MIXED GENITAL CHICA. NO POTENTIAL PATHOGENS SEEN. Normal [facility] Comment on above: Performed By: #### B CASH REGISTER OPERATOR, TSH, LIPID, CMP #### [facility] [address] [place] [address] Dr. Lilli Soriano GLYCOHEMOGLOBIN A1Con 2021 ADA RECOMMENDATION SEE BELOW Normal [facility] Comment on above: Result Comment: ADA RECOMMENDED LIMIT 4.0 - 6.0 ADA THERAPEUTIC TARGET < 7.0 ACTION SUGGESTED > 7.0 Performed By: #### B CASH REGISTER OPERATOR, TSH, LIPID, CMP #### [facility] [address] [place] [address] Dr. Lilli Soriano Glucose [Mass/Vol] 108 mg/dL Normal [facility] Comment on above: Performed By: #### B CASH REGISTER OPERATOR, TSH, LIPID, CMP #### [facility] [address] [place] [address] Dr. Lilli Soriano HbA1c (Bld) [Mass fraction] 5.4 % Normal 4.5-6.2 [facility] Comment on above: Performed By: #### B CASH REGISTER OPERATOR, TSH, LIPID, CMP #### [facility] [address] [place] [address] Dr. Lilli Soriano IRONon 11-25-2021 Iron [Mass/Vol] 47.0 ug/dL Critically low 50.0-170.0 [facility] Comment on above: Performed By: #### B CASH REGISTER OPERATOR, TSH, LIPID, CMP #### [facility] [address] [address] [address] Lilli Soriano LIPID PROFILEon 11-25-2021 CHOL-HDL RATIO NORM SEE BELOW Normal [facility] Comment on above: Result Comment: 3.3 - 4.4 LOW RISK 4.4 - 7.1 AVERAGE RISK 7.1 - 11.0 MODERATE RISK >11.0 HIGH RISK Performed By: #### B CASH REGISTER OPERATOR, TSH, LIPID, CMP #### [facility] [address] [address] [address] Lilli Soriano Cholesterol [Mass/Vol] 153 mg/dL Normal <=200 [facility] Comment on above: Performed By: #### B CASH REGISTER OPERATOR, TSH, LIPID, CMP #### [facility] [address] [address] [address] Lilli Soriano Cholesterol in HDL [Mass/Vol] 56 mg/dL Normal 40-60 [facility] Comment on above: Performed By: #### B CASH REGISTER OPERATOR, TSH, LIPID, CMP #### [facility] [address] [address] [address] Lilli Soriano Cholesterol in LDL [Mass/Vol] 88.4 mg/dL Normal [facility] Comment on above: Performed By: #### B CASH REGISTER OPERATOR, TSH, LIPID, CMP #### [facility] [address] [address] [address] Lilli Soriano Cholesterol.total/Cho lesterol in HDL [Mass ratio] 2.7 {ratio} Normal [facility] Comment on above: Performed By: #### B CASH REGISTER OPERATOR, TSH, LIPID, CMP #### [facility] [address] [address] [address] Lilli Soriano HDL NORMAL > or = 60 mg/dl - LO W CARDIOVASCULAR RISK <40 mg/dl - HIGH CARDIOVASCULAR RISK Normal [facility] Comment on above: Performed By: #### B CASH REGISTER OPERATOR, TSH, LIPID, CMP #### [facility] [address] [address] [address] Lilli Soriano LDL CALC NORMAL SEE BELOW Normal [facility] Comment on above: Result Comment: <100 mg/dl OPTIMAL 100 - 129 mg/dl NEAR OR ABOVE OPTIMAL 130 - 159 mg/dl BORDERLINE HIGH 160 - 189 mg/dl HIGH >190 mg/dl VERY HIGH Performed By: #### B CASH REGISTER OPERATOR, TSH, LIPID, CMP #### [facility] [address] [place] [address] Dr. Lilli Soriano Triglyceride [Mass/Vol] 43 mg/dL Normal <=150 [facility] Comment on above: Performed By: #### B CASH REGISTER OPERATOR, TSH, LIPID, CMP #### [facility] [address] [place] [address] Dr. Lilli Soriano VLDL CALC 8.6 mg/dL Normal [facility] Comment on above: Performed By: #### B CASH REGISTER OPERATOR, TSH, LIPID, CMP #### [facility] [address] [place] [address] Dr. Lilli Soriano PROF 14(COMP METB)on 022 Albumin [Mass/Vol] 3.7 g/dL Normal 3.4-5.0 [facility] Comment on above: Performed By: #### B CASH REGISTER OPERATOR, TSH, LIPID, CMP #### [facility] [address] [place] [address] Dr. Lilli Soriano Albumin/Globulin [Mass ratio] 1.0 {ratio} Normal [facility] Comment on above: Performed By: #### B CASH REGISTER OPERATOR, TSH, LIPID, CMP #### [facility] [address] [place] [address] Dr. Lilli Soriano ALP [Catalytic activity/Vol] 58 U/L Normal 46-116 [facility] Comment on above: Performed By: #### B CASH REGISTER OPERATOR, TSH, LIPID, CMP #### [facility] [address] [place] [address] Dr. Lilli Soriano ALT [Catalytic activity/Vol] 30 U/L Normal 14-59 [facility] Comment on above: Performed By: #### B CASH REGISTER OPERATOR, TSH, LIPID, CMP #### [facility] [address] [place] [address] Dr. Lilli Soriano Anion gap [Moles/Vol] 9.9 mmol/L Normal [facility] Comment on above: Performed By: #### B CASH REGISTER OPERATOR, TSH, LIPID, CMP #### [facility] [address] [place] [address] Dr. Lilli Soriano AST [Catalytic activity/Vol] 10 U/L Critically low 15-37 [facility] Comment on above: Performed By: #### B CASH REGISTER OPERATOR, TSH, LIPID, CMP #### [facility] [address] [place] [address] Dr. Lilli Soriano Bilirubin [Mass/Vol] 0.4 mg/dL Normal 0.2-1.0 [facility] Comment on above: Performed By: #### B CASH REGISTER OPERATOR, TSH, LIPID, CMP #### [facility] [address] [place] [address] Dr. Lilli Soriano Calcium [Mass/Vol] 8.8 mg/dL Normal 8.5-10.1 [facility] Comment on above: Performed By: #### B CASH REGISTER OPERATOR, TSH, LIPID, CMP #### [facility] [address] [place] [address] Dr. Lilli Soriano Chloride [Moles/Vol] 102 mmol/L Normal 98-107 [facility] Comment on above: Performed By: #### B CASH REGISTER OPERATOR, TSH, LIPID, CMP #### [facility] [address] [place] [address] Dr. Lilli Soriano CO2 [Moles/Vol] 30.1 mmol/L Normal 21.0-32.0 [facility] Comment on above: Performed By: #### B CASH REGISTER OPERATOR, TSH, LIPID, CMP #### [facility] [address] [place] [address] Dr. Lilli Soriano Creatinine [Mass/Vol] 0.90 mg/dL Normal 0.55-1.02 [facility] Comment on above: Performed By: #### B CASH REGISTER OPERATOR, TSH, LIPID, CMP #### [facility] [address] [place] [address] Dr. Lilli Soriano EGFR-AF ICELANDIC >60 Normal >=60 [facility] Comment on above: Performed By: #### B CASH REGISTER OPERATOR, TSH, LIPID, CMP #### [facility] [address] [place] [address] Dr. Lilli Soriano EGFR-NON AF ICELANDIC >60 Normal >=60 [facility] Comment on above: Performed By: #### B CASH REGISTER OPERATOR, TSH, LIPID, CMP #### [facility] [address] [place] [address] Dr. Lilli Soriano Globulin (S) [Mass/Vol] 3.7 g/dL Normal [facility] Comment on above: Performed By: #### B CASH REGISTER OPERATOR, TSH, LIPID, CMP #### [facility] [address] [address] [address] Lilli Soriano Glucose [Mass/Vol] 96 mg/dL Normal 74-106 [facility] Comment on above: Performed By: #### B CASH REGISTER OPERATOR, TSH, LIPID, CMP #### [facility] [address] [place] [address] Dr. Lilli Soriano Potassium [Moles/Vol] 4.0 mmol/L Normal 3.5-5.1 [facility] Comment on above: Performed By: #### B CASH REGISTER OPERATOR, TSH, LIPID, CMP #### [facility] [address] [place] [address] Dr. Lilli Soriano Protein [Mass/Vol] 7.4 g/dL Normal 6.4-8.2 [facility] Comment on above: Performed By: #### B CASH REGISTER OPERATOR, TSH, LIPID, CMP #### [facility] [address] [place] [address] Dr. Lilli Soriano Sodium [Moles/Vol] 138 mmol/L Normal 136-145 [facility] Comment on above: Performed By: #### B CASH REGISTER OPERATOR, TSH, LIPID, CMP #### [facility] [address] [place] [address] Dr. Lilli Soriano Urea nitrogen [Mass/Vol] 12.0 mg/dL Normal 7.0-18.0 [facility] Comment on above: Performed By: #### B CASH REGISTER OPERATOR, TSH, LIPID, CMP #### [facility] [address] [place] [address] Dr. Lilli Soriano Urea nitrogen/Creatinine [Mass ratio] 13.3 mg/mg Normal [facility] Comment on above: Performed By: #### B CASH REGISTER OPERATOR, TSH, LIPID, CMP #### [facility] [address] [place] [address] Dr. Lilli Soriano TSHon 11-25-2021 TSH 1.196 uIU/mL Normal 0.358-3.740 [facility] Comment on above: Performed By: #### B CASH REGISTER OPERATOR, TSH, LIPID, CMP #### [facility] [address] [place] [address] Dr. Lilli Soriano UA RANDOM W/MICROSCOPICon BACTERIA TRACE Abnormal NONE SEEN [facility] Comment on above: Performed By: #### B CASH REGISTER OPERATOR, TSH, LIPID, CMP #### [facility] [address] [place] [address] Dr. Lilli Soriano Bilirubin Ql (U) Negative Normal NEGATIVE The [facility] Comment on above: Performed By: #### B CASH REGISTER OPERATOR, TSH, LIPID, CMP #### [facility] [address] [place] [address] Dr. Lilli Soriano CAST NONE SEEN Normal NONE SEEN [facility] Comment on above: Performed By: #### B CASH REGISTER OPERATOR, TSH, LIPID, CMP #### [facility] [address] [place] [address] Dr. Lilli Soriano Clarity (U) CLEAR Normal CLEAR The [facility] Comment on above: Performed By: #### B CASH REGISTER OPERATOR, TSH, LIPID, CMP #### [facility] [address] [place] [address] Dr. Lilli Soriano Color (U) LT. YELLOW Normal YELLOW The [facility] Comment on above: Performed By: #### B CASH REGISTER OPERATOR, TSH, LIPID, CMP #### [facility] [address] [place] [address] Dr. Lilli Soriano Crystals LM Nom (Urine sed) NONE SEEN Normal NONE SEEN [facility] Comment on above: Performed By: #### B CASH REGISTER OPERATOR, TSH, LIPID, CMP #### [facility] [address] [place] [address] Dr. Lilli Soriano Epithelial cells LM Ql (Urine sed) MODERATE Abnormal NONE SEEN /RARE The [facility] Comment on above: Performed By: #### B CASH REGISTER OPERATOR, TSH, LIPID, CMP #### [facility] [address] [address] [address] Lilli Soriano Glucose Ql (U) Negative Normal NEGATIVE The [facility] Comment on above: Performed By: #### B CASH REGISTER OPERATOR, TSH, LIPID, CMP #### [facility] [address] [place] [address] Dr. Lilli Soriano Hemoglobin Ql (U) Negative Normal NEGATIVE The [facility] Comment on above: Performed By: #### B CASH REGISTER OPERATOR, TSH, LIPID, CMP #### [facility] [address] [place] [address] Dr. Lilli Soriano Ketones Ql (U) Negative Normal NEGATIVE The [facility] Comment on above: Performed By: #### B CASH REGISTER OPERATOR, TSH, LIPID, CMP #### [facility] [address] [place] [address] Dr. Lilli Soriano LEUKOCYTES Negative Normal NEGATIVE [facility] Comment on above: Performed By: #### B CASH REGISTER OPERATOR, TSH, LIPID, CMP #### [facility] [address] [place] [address] Dr. Lilli Soriano MUCOUS NONE SEEN Normal NONE SEEN The [facility] Comment on above: Performed By: #### B CASH REGISTER OPERATOR, TSH, LIPID, CMP #### [facility] [address] [place] [address] Dr. Lilli Soriano Nitrite Ql (U) Negative Normal NEGATIVE The [facility] Comment on above: Performed By: #### B CASH REGISTER OPERATOR, TSH, LIPID, CMP #### [facility] [address] [place] [address] Dr. Lilli Soriano pH (U) 7.0 [pH] Normal 5-9 [facility] Comment on above: Performed By: #### B CASH REGISTER OPERATOR, TSH, LIPID, CMP #### [facility] [address] [place] [address] Dr. Lilli Soriano RBC 0-2 Normal 0-2 [facility] Comment on above: Performed By: #### B CASH REGISTER OPERATOR, TSH, LIPID, CMP #### [facility] [address] [place] [address] Dr. Lilli Soriano SPEC GRAVITY 1.010 Normal 1.005-<=1.02 5 [facility] Comment on above: Performed By: #### B CASH REGISTER OPERATOR, TSH, LIPID, CMP #### [facility] [address] [address] [address] Lilli Soriano UA PROTEIN Negative Normal NEGATIVE/ TRACE The [facility] Comment on above: Performed By: #### B CASH REGISTER OPERATOR, TSH, LIPID, CMP #### [facility] [address] [address] [address] Lilli Soriano Urobilinogen Qn (U) 0.2 {Macho'U}/dL Normal 0.2 - 1. 0 [facility] Comment on above: Performed By: #### B CASH REGISTER OPERATOR, TSH, LIPID, CMP #### [facility] [address] [address] [address] Lilli Soriano WBC NONE SEEN Normal NONE SEEN The [facility] Comment on above: Performed By: #### B CASH REGISTER OPERATOR, TSH, LIPID, CMP #### [facility] [address] [place] [address] Dr. Lilli Soriano URon 09-19-2021 , QUAL Negative Normal NEGATIVE [facility] Comment on above: Performed By: #### B CASH REGISTER OPERATOR, TSH, LIPID, CMP #### [facility] [address] [place] [address] Dr. Lilli Soriano XR LSPINE 2_3 VIEWSon [...] disc space at L5-S1. [facility] Date: 2021-09-19 12:59 Normal [facility] Covid-19 PCR (CVDTB)on 07-19 SARS-CoV-2 (COVID-19) RNA CLIFF+probe Ql (Unsp spec) Not detected Normal NOT DETECTED The [facility] Comment on above: Result Comment: This test is not yet approved or cleared by the [place] FDA. When there are no FDA-approved or cleared tests available, and other criteria are met, FDA can make tests available under an emergency access mechanism called an Emergency Use Authorization (EUA). The EUA for this test is supported by the [place] of Health and Human Service's (HHS's) declaration [...] SARS-CoV-2. Performed By: #### C VDTBH #### [facility] [address] [place] [address] Dr. Lilli Soriano INFLUENZA A AND B [facility]on 07-[facility] Normal [facility] Comment on above: Result Comment: Nega tive for Flu A protein angiten. Infection due to Flu A cannot be ruled out. Flu A angiten in the sample may be below the detection limit of the test. Performed By: #### I NFLUAB #### [facility] [address] [place] [address] Dr. Lilli Soriano INFLUBNEG SEE BELOW Normal [facility] Comment on above: Result Comment: Nega tive for Flu B protein antigen. Infection due to Flu B cannot be ruled out. Flu B antigen in the sample may be below the detection limit of the test. Performed By: #### I NFLUAB #### [facility] [address] [place] [address] Dr. Lilli Soriano INFLUENZA A AG Negative Normal NEGATIVE SEE COMMENT The [facility] Comment on above: Performed By: #### I NFLUAB #### [facility] [address] [place] [address] Dr. Lilli Soriano INFLUENZA B AG Negative Normal NEGATIVE SEE COMMENT The [facility] Comment on above: Performed By: #### I NFLUAB #### [facility] [address] [place], [place] [address] Dr. Lilli Soriano INTERNAL CONTROLS Within Normal Limits Normal Wi thin Normal Limits The [facility] Comment on above: Performed By: #### I NFLUAB #### [facility] [address] [place], [place] [address] Dr. Lilli Soriano HCG, Quanton 04-29-2021 HCG, Quant <1 Normal <5 [facility] Comment on above: Result Comment: Non-preg [...] liver. Performed By: #### B HCG #### [email or web address] [address] [place] [address] Application Tester: Geo Mar MD hCG, Quantitative, on 04-29-2021 hCG Quant <1 <5 IU/L [facility] Comment on above: Non-preg premeno <=5 Postmeno <=8 Male <=3 If HCG results do not concur with clinical observations, additional testing to confirm results is recommended. Elevated results not associated with may be found in patients with other diseases such as tumors of the germ cells (testis, ovaries, etc.), bladder, pancreas, stomach, lungs, and liver. [facility] CBC Auto Differentialon 03-21 Basophils (Bld) [#/Vol] 0.04 10*3/uL [place] Basophils/100 WBC (Bld) 1 % 0 - 2 % [place] Differential Type NOT REPORTED [place] Eosinophils (Bld) [#/Vol] 0.15 10*3/uL [place] Eosinophils/100 WBC (Bld) 2 % 1 - 4 % [place] Erythrocyte distribution width (RBC) [Ratio] 12.9 % 11.8 - 14.4 % [place] Hematocrit (Bld) [Volume fraction] 44.6 % 36.3 - 47.1 % [place] Hemoglobin (Bld) [Mass/Vol] 14.6 g/dL 11.9 - 15.1 g/dL [place] Immature granulocytes (Bld) [#/Vol] 0.05 10*3/uL [place] Immature granulocytes (Bld) [#/Vol] 1 % High 0 [place] Interpretation and review of laboratory results Abnormal [place] Lymphocytes (Bld) [#/Vol] 1.70 10*3/uL [place] Lymphocytes/100 WBC (Bld) 21 % Low 24 - 43 % [place] MCH (RBC) [Entitic mass] 28.1 pg 25.2 - 33.5 pg [place] MCHC (RBC) [Mass/Vol] 32.7 g/dL 28.4 - 34.8 g/dL [place] MCV (RBC) [Entitic vol] 85.8 fL 82.6 - 102.9 fL [place] Monocytes (Bld) [#/Vol] 0.54 10*3/uL [place] Monocytes/100 WBC (Bld) 7 % 3 - 12 % [place] Platelet mean volume (Bld) [Entitic vol] 10.7 fL 8.1 - 13.5 fL [place] Platelets (Bld) [#/Vol] NOT REPORTED [place] Platelets (Bld) [#/Vol] 337 10*3/uL [place] RBC (Bld) [#/Vol] 5.20 10*6/uL High 3.95 - 5.1 1 m/uL [place] RBC morphology finding Nom (Bld) NOT REPORTED [place] Segmented neutrophils/100 WBC (Bld) 68 % High 36 - 65 % [place] Segs Absolute 5.83 [place] WBC (Bld) [#/Vol] 8.3 10*3/uL [place] WBC (Bld) [#/Vol] 0.0 10*3/uL 0.0 per 10 0 WBC [place] WBC Morphology NOT REPORTED [place] Comprehensive Metabolic Pane jani 04-08-2020 Albumin [Mass/Vol] 4 g/dL 3.5 - 5.2 g/dL [place] Albumin/Globulin [Mass ratio] 1.7 {ratio} [place] ALP [Catalytic activity/Vol] 66 U/L 35 - 104 U/L [place] ALT [Catalytic activity/Vol] 16 U/L 5 - 33 U/L [place] Anion gap [Moles/Vol] 11 mmol/L 9 - 17 mmol/L [place] AST [Catalytic activity/Vol] 13 U/L <32 [place] Bilirubin Ql (U) 0.28 mg/dL Low 0.3 - 1.2 mg/dL [place] Bun/Cre Ratio NOT REPORTED [place] Calcium [Mass/Vol] 9.1 mg/dL 8.6 - 10. 4 mg/dL [place] Chloride [Moles/Vol] 103 mmol/L 98 - 10 7 mmol/L [place] CO2 [Moles/Vol] 21 mmol/L 20 - 31 mmol/L [place] Creatinine [Mass/Vol] 0.78 mg/dL 0.5 - 0.9 mg/dL [place] GFR >60 >60 mL/min [place] GFR Non- >60 >60 mL/min [place] GFR/1.73 sq M predicted among non-blacks MDRD (S/P/Bld) [Vol rate/Area] [place] Comment on above: Average GFR for 20-2 9 years old: 116 mL/min/1.73sq m Chronic Kidney Disease: <60 mL/min/1.73sq m Kidney failure: <15 mL/min/1.73sq m eGFR calculated using average adult body mass. Additional eGFR calculator available at: http://www.[employer]/multiple_crcl_2012.htm GFR/1.73 sq M predicted among non-blacks MDRD (S/P/Bld) [Vol rate/Area] NOT REPORTED [place] Glucose [Mass/Vol] 97 mg/dL 70 - 99 mg/dL [place] Interpretation and review of laboratory results Abnormal [place] Potassium [Moles/Vol] 4.4 mmol/L 3.7 - 5.3 mmol/L [place] Protein [Mass/Vol] 6.4 g/dL 6.4 - 8.3 g/dL [place] Sodium [Moles/Vol] 135 mmol/L 135 - 144 mmol/L [place] Urea nitrogen [Mass/Vol] 12 mg/dL 6 - 20 mg/dL [place] Hemoglobin A1Con 04-08-2020 Glucose [Mass/Vol] 111 mg/dL [place] Comment on above: The ADA and AACC rec ommend providing the estimated average glucose result to permit better patient understanding of their HBA1c result. HbA1c (Bld) [Mass fraction] 5.5 % 4 - 6 % [place] Insulin, totalon 04-08-2020 INR Coag (Bld) [Relative time] [place] Comment on above: Fastin.6-24.9 30 min: 20-112 60 min: 29-88 90 min: 26-84 120 min: 22-79 Insulin 27.4 mU/L [place] Insulin Comment NOT REPORTED [place] T3on 04-08-2020 T3, Total 97 ng/dL 60 - 181 ng/dL [place] T3, Uptakeon 04-08-2020 Interpretation and review of laboratory results Abnormal [place] T4 [Mass/Vol] 37.23 % High 22.5 - 37 % [place] T4on 04-08-2020 T4, Total 6.4 ug/dL 4.5 - 10.9 ug/dL [place] TSH without Reflexon 021 TSH Qn 1.39 m[IU]/L [facility], [place] Cult, Bloodon 12-04-2018 Cult, Blood Specimen Description .BLOOD Special Requests RAC 10ML Culture NO GROWTH 5 DAYS Report Status FINAL 12/04/2018 [facility] Comment on above: Performed By: #### T OXOM, HSVG12, CMVM, FA2, MATIAS, TOXOG, HSVM12, CMVG, FA5 #### [address] [address] Application Tester: Geo Mar MD #### CBC, FIB #### [address] [place] [address] Application Tester: Mario Anne MD #### APROTS, APARVP, APROTC, ARUBGM #### [facility] [address] [place] [address] Application Tester: Fernando Valencia MD #### LUPPRO #### [address] [address] Application Tester: Geo Mar MD [address] [place] [address] Application Tester: Mario Anne MD Cult,Bloodon 12-03-2018 Cult,Blood Specimen Description .BLOOD Special Requests LAC 20 ML Culture NO GROWTH 5 DAYS Report Status FINAL 12/03/2018 [facility] Comment on above: Performed By: #### T OXOM, HSVG12, CMVM, FA2, MATIAS, TOXOG, HSVM12, CMVG, FA5 #### [address] [address] Application Tester: Geo Mar MD #### CBC, FIB #### [address] [place] [address] Application Tester: Mario Anne MD #### APROTS, APARVP, APROTC, ARUBGM #### [facility] [address] [place] [address] Application Tester: Fernando Valencia MD #### LUPPRO #### [address] [address] Application Tester: Geo Mar MD [address] [place] [id number] Application Tester: Mario Anne MD CBCon 11-30-2018 Erythrocyte distribution width (RBC) [Ratio] 13.4 % Normal 11.8-14.4 [facility] Comment on above: Performed By: #### T OXOM, HSVG12, CMVM, FA2, MATIAS, TOXOG, HSVM12, CMVG, FA5 #### [address] [address] Application Tester: Geo Mar MD #### CBC, FIB #### [address] [place] [phone] Application Tester: Mario Anne MD #### APROTS, APARVP, APROTC, ARUBGM #### [facility] [address] [place] [address] Application Tester: Fernando Valencia MD #### LUPPRO #### [address] [address] Application Tester: Geo Mar MD [address] [place] [id number] Application Tester: Mario Anne MD Hematocrit (Bld) [Volume fraction] 26.6 % Low 36.3-47.1 [facility] Comment on above: Performed By: #### T OXOM, HSVG12, CMVM, FA2, MATIAS, TOXOG, HSVM12, CMVG, FA5 #### [address] [address] Application Tester: Geo Mar MD #### CBC, FIB #### [address] [place] [phone] Application Tester: Mario Anne MD #### APROTS, APARVP, APROTC, ARUBGM #### [facility] [address] [place], [place] [id number] Application Tester: Fernando Valencia MD #### LUPPRO #### [address] [id number] Application Tester: Geo Mar MD [address] [place] [id number] Application Tester: Mario Anne MD Hemoglobin (Bld) [Mass/Vol] 8.1 g/dL Low 11.9-15.1 [facility] Comment on above: Performed By: #### T OXOM, HSVG12, CMVM, FA2, MATIAS, TOXOG, HSVM12, CMVG, FA5 #### [address] [address] Application Tester: Geo Mar MD #### CBC, FIB #### [address] [place] [phone] Application Tester: Mario Anne MD #### APROTS, APARVP, APROTC, ARUBGM #### [facility] [address] [place] [address] Application Tester: Fernando Valencia MD #### LUPPRO #### [address] [address] Application Tester: Geo Mar MD [address] [place] [phone] Application Tester: Mario Anne MD MCH (RBC) [Entitic mass] 27.2 pg Normal 25.2-33.5 [facility] Comment on above: Performed By: #### T OXOM, HSVG12, CMVM, FA2, MATIAS, TOXOG, HSVM12, CMVG, FA5 #### [address] [address] Application Tester: Geo Mar MD #### CBC, FIB #### [address] [place] [address] Application Tester: Mario Anne MD #### APROTS, APARVP, APROTC, ARUBGM #### [facility] [address] [place] [id number] Application Tester: Fernando Valencia MD #### LUPPRO #### [address] [address] Application Tester: Geo Mar MD [address] [place] [phone] Application Tester: Mario Anne MD MCHC (RBC) [Mass/Vol] 30.5 g/dL Normal 28.4-34.8 [facility] Comment on above: Performed By: #### T OXOM, HSVG12, CMVM, FA2, MATIAS, TOXOG, HSVM12, CMVG, FA5 #### [address] [address] Application Tester: Geo Mar MD #### CBC, FIB #### [address] [place], [place] [id number] Application Tester: Mario Anne MD #### APROTS, APARVP, APROTC, ARUBGM #### [facility] [address] [place] [address] Application Tester: Fernando Valencia MD #### LUPPRO #### [address] [address] Application Tester: Geo Mar MD [address] [place], [place] [id number] Application Tester: Mario Anne MD MCV (RBC) [Entitic vol] 89.3 fL Normal 82.6-102.9 [facility] Comment on above: Performed By: #### T OXOM, HSVG12, CMVM, FA2, MATIAS, TOXOG, HSVM12, CMVG, FA5 #### [address] [address] Application Tester: Geo Mar MD #### CBC, FIB #### [address] [place], [place] [phone] Application Tester: Mario Anne MD #### APROTS, APARVP, APROTC, ARUBGM #### [facility] [address] [place] [address] Application Tester: Fernando Valencia MD #### LUPPRO #### [address] [address] Application Tester: Geo Mar MD [address] [place] [phone] Application Tester: Mario Anne MD NRBC Automated 0.0 per 100 WBC Normal 0.0 [facility] Comment on above: Performed By: #### T OXOM, HSVG12, CMVM, FA2, MATIAS, TOXOG, HSVM12, CMVG, FA5 #### [address] [address] Application Tester: Geo Mar MD #### CBC, FIB #### [address] [place], [place] [id number] Application Tester: Mario Anne MD #### APROTS, APARVP, APROTC, ARUBGM #### [facility] [address] [place] [address] Application Tester: Fernando Valencia MD #### LUPPRO #### [address] [id number] Application Tester: Geo Mar MD [address] [place], [facility] Application Tester: Mario Anne MD Platelet mean volume (Bld) [Entitic vol] 10.0 fL Normal 8.1-13.5 [facility] Comment on above: Performed By: #### T OXOM, HSVG12, CMVM, FA2, MATIAS, TOXOG, HSVM12, CMVG, FA5 #### [address] [address] Application Tester: Geo Mar MD #### CBC, FIB #### [address] [place] [id number] Application Tester: Mario Anne MD #### APROTS, APARVP, APROTC, ARUBGM #### [facility] [address] [place], [place] [id number] Application Tester: Fernando Valencia MD #### LUPPRO #### [address] [id number] Application Tester: Geo Mar MD [address] [place] [address] Application Tester: Mario Anne MD Platelets (Bld) [#/Vol] 255 10*3/uL Normal 138-453 [facility] Comment on above: Performed By: #### T OXOM, HSVG12, CMVM, FA2, MATIAS, TOXOG, HSVM12, CMVG, FA5 #### [address] [address] Application Tester: Geo Mar MD #### CBC, FIB #### [address] [place] [phone] Application Tester: Mario Anne MD #### APROTS, APARVP, APROTC, ARUBGM #### [facility] [address] [place] [address] Application Tester: Fernando Valencia MD #### LUPPRO #### [address] [address] Application Tester: Geo Mar MD [address] [place] [address] Application Tester: Mario Anne MD RBC (Bld) [#/Vol] 2.98 10*6/uL Low 3.95-5.11 [facility] Comment on above: Performed By: #### T OXOM, HSVG12, CMVM, FA2, MATIAS, TOXOG, HSVM12, CMVG, FA5 #### [address] [address] Application Tester: Geo Mar MD #### CBC, FIB #### [address] [place] [phone] Application Tester: Mario Anne MD #### APROTS, APARVP, APROTC, ARUBGM #### [facility] [address] [place] [address] Application Tester: Fernando Valencia MD #### LUPPRO #### [address] [address] Application Tester: Geo Mar MD [address] [place] [id number] Application Tester: Mario Anne MD WBC (Bld) [#/Vol] 6.3 10*3/uL Normal 3.5-11.3 [facility] Comment on above: Performed By: #### T OXOM, HSVG12, CMVM, FA2, MATIAS, TOXOG, HSVM12, CMVG, FA5 #### [address] [address] Application Tester: Geo Mar MD #### CBC, FIB #### [address] [place] [address] Application Tester: Mario Anne MD #### APROTS, APARVP, APROTC, ARUBGM #### [facility] [address] [place] [address] Application Tester: Fernando Valencia MD #### LUPPRO #### [facility] [address] [place], [place] [id number] Application Tester: Geo Mar MD [facility] [address] [place] [address] Application Tester: Mario Anne MD Erythrocyte distribution width (RBC) [Ratio] 13.4 % 11.8 - 14.4 % [place] Hematocrit (Bld) [Volume fraction] 26.6 % Low 36.3 - 47.1 % [place] Hemoglobin (Bld) [Mass/Vol] 8.1 g/dL Low 11.9 - 15.1 g/dL [place] Interpretation and review of laboratory results Abnormal [place] MCH (RBC) [Entitic mass] 27.2 pg 25.2 - 33.5 pg [place] MCHC (RBC) [Mass/Vol] 30.5 g/dL 28.4 - 34.8 g/dL [place] MCV (RBC) [Entitic vol] 89.3 fL 82.6 - 102.9 fL [place] Platelet mean volume (Bld) [Entitic vol] 10.0 fL 8.1 - 13.5 fL [place] Platelets (Bld) [#/Vol] 255 10*3/uL [place] RBC (Bld) [#/Vol] 2.98 10*6/uL Low 3.95 - 5.1 1 m/uL [place] WBC (Bld) [#/Vol] 6.3 10*3/uL [place] WBC (Bld) [#/Vol] 0.0 10*3/uL 0.0 per 10 0 WBC [place] Comp Metabolic Pr/rfx MGon 0 11-30-2018 (cont.) Normal [facility] Comment on above: Result Comment: Aver age GFR for 20-29 years old: 116 mL/min/1.73sq m Chronic Kidney Disease: <60 mL/min/1.73sq m Kidney failure: <15 mL/min/1.73sq m eGFR calculated using average adult body mass. Additional eGFR calculator available at: http://www.[employer]/multiple_crcl_2011.htm Performed By: #### T OXOM, HSVG12, CMVM, FA2, MATIAS, TOXOG, HSVM12, CMVG, FA5 #### [facility] [address] [place], [place] [id number] Application Tester: Geo Mar MD #### CBC, FIB #### [facility] [address] [place] [address] [place] [address] Application Tester: Mario Anne MD #### APROTS, APARVP, APROTC, ARUBGM #### [facility] [address] [place] [address] Application Tester: Fernando Valencia MD #### LUPPRO #### [address] [id number] Application Tester: Geo Mar MD [facility] [address] [place] [address] [place] [address] Application Tester: Mario Anne MD Albumin [Mass/Vol] 2.9 g/dL Low 3.5-5.2 [facility] Comment on above: Performed By: #### T OXOM, HSVG12, CMVM, FA2, MATIAS, TOXOG, HSVM12, CMVG, FA5 #### [facility] [address] [place] [address] [id number] Application Tester: Geo Mar MD #### CBC, FIB #### [facility] [address] [place] [address] [place] [address] Application Tester: Mario Anne MD #### APROTS, APARVP, APROTC, ARUBGM #### [facility] [address] [place] [address] Application Tester: Fernando Valencia MD #### LUPPRO #### [address] [address] Application Tester: Geo Mar MD [address] [place], [place] [phone] Application Tester: Mario Anne MD Albumin/Globulin [Mass ratio] 1.1 {ratio} Normal 1.0-2.5 [facility] Comment on above: Performed By: #### T OXOM, HSVG12, CMVM, FA2, MATIAS, TOXOG, HSVM12, CMVG, FA5 #### [address] [address] Application Tester: Geo Mar MD #### CBC, FIB #### [address] [place], [place] [id number] Application Tester: Mario Anne MD #### APROTS, APARVP, APROTC, ARUBGM #### [facility] [address] [place], [place] [id number] Application Tester: Fernando Valencia MD #### LUPPRO #### [address] [address] Application Tester: Geo Mar MD [address] [place], [place] [id number] Application Tester: Mario Anne MD Alkaline Phos 41 U/L Normal 35-104 [facility] Comment on above: Performed By: #### T OXOM, HSVG12, CMVM, FA2, MATIAS, TOXOG, HSVM12, CMVG, FA5 #### [address] [address] Application Tester: Geo Mar MD #### CBC, FIB #### [address] [place], [place] [id number] Application Tester: Mario Anne MD #### APROTS, APARVP, APROTC, ARUBGM #### [facility] [address] [place], [place] [id number] Application Tester: Fernando Valencia MD #### LUPPRO #### [address] [address] Application Tester: Geo Mar MD [address] [place], [place] [phone] Application Tester: Mario Anne MD ALT [Catalytic activity/Vol] 17 U/L Normal 5-33 [facility] Comment on above: Performed By: #### T OXOM, HSVG12, CMVM, FA2, MATIAS, TOXOG, HSVM12, CMVG, FA5 #### [address] [address] Application Tester: Geo Mar MD #### CBC, FIB #### [address] [place], [place] [id number] Application Tester: Mario Anne MD #### APROTS, APARVP, APROTC, ARUBGM #### [facility] [address] [place], [place] [id number] Application Tester: Fernando Valencia MD #### LUPPRO #### [address] [address] Application Tester: Geo Mar MD [address] [place] [address] Application Tester: Mario Anne MD Anion gap [Moles/Vol] 14 mmol/L Normal 9-17 [facility] Comment on above: Performed By: #### T OXOM, HSVG12, CMVM, FA2, MATIAS, TOXOG, HSVM12, CMVG, FA5 #### [address] [address] Application Tester: Geo Mar MD #### CBC, FIB #### [address] [place], [place] [id number] Application Tester: Mario Anne MD #### APROTS, APARVP, APROTC, ARUBGM #### [facility] [address] [place] [address] Application Tester: Fernando Valencia MD #### LUPPRO #### [address] [address] Application Tester: Geo Mar MD [address] [place], [place] 4442683 Application Tester: Mario Anne MD AST [Catalytic activity/Vol] 14 U/L Normal <32 [facility] Comment on above: Performed By: #### T OXOM, HSVG12, CMVM, FA2, MATIAS, TOXOG, HSVM12, CMVG, FA5 #### [address] [address] Application Tester: Geo Mar MD #### CBC, FIB #### [address] [place], [place] [id number] Application Tester: Mario Anne MD #### APROTS, APARVP, APROTC, ARUBGM #### [facility] [address] [place] [address] Application Tester: Fernando Valencia MD #### LUPPRO #### [address] [address] Application Tester: Geo Mar MD [address] [place], [place] [phone] Application Tester: Mario Anne MD Bilirubin Ql (U) 0.16 mg/dL Low 0.3-1.[address] [facility] Comment on above: Performed By: #### T OXOM, HSVG12, CMVM, FA2, MATIAS, TOXOG, HSVM12, CMVG, FA5 #### [address] [address] Application Tester: Geo Mar MD #### CBC, FIB #### [address] [place], [place] [phone] Application Tester: Mario Anne MD #### APROTS, APARVP, APROTC, ARUBGM #### [facility] [address] [place] [address] Application Tester: Fernando Valencia MD #### LUPPRO #### [address] [address] Application Tester: Geo Mar MD [address] [place] [id number] Application Tester: Mario Anne MD BUN/CRE Ratio 8 Low 9-20 [facility] Comment on above: Performed By: #### T OXOM, HSVG12, CMVM, FA2, MATIAS, TOXOG, HSVM12, CMVG, FA5 #### [address] [address] Application Tester: Geo Mar MD #### CBC, FIB #### [address] [place] [address] Application Tester: Mario Anne MD #### APROTS, APARVP, APROTC, ARUBGM #### [facility] [address] [place] [address] Application Tester: Fernando Valencia MD #### LUPPRO #### [address] [address] Application Tester: Geo Mar MD [address] [place] [id number] Application Tester: Mario Anne MD Calcium [Mass/Vol] 8.4 mg/dL Low 8.6-10.4 [facility] Comment on above: Performed By: #### T OXOM, HSVG12, CMVM, FA2, MATIAS, TOXOG, HSVM12, CMVG, FA5 #### [address] [address] Application Tester: Geo Mar MD #### CBC, FIB #### [facility] [address] [place] [address] [address] [place], [place] [phone] Application Tester: Mario Anne MD #### APROTS, APARVP, APROTC, ARUBGM #### [facility] [address] [place], [place] [id number] Application Tester: Fernando Valencia MD #### LUPPRO #### [address] [address] Application Tester: Geo Mar MD [address] [place] [address] Application Tester: Mario Anne MD Chloride [Moles/Vol] 105 mmol/L Normal 98-107 [facility] Comment on above: Performed By: #### T OXOM, HSVG12, CMVM, FA2, MATIAS, TOXOG, HSVM12, CMVG, FA5 #### [address] [address] Application Tester: Geo Mar MD #### CBC, FIB #### [facility] [address] [place] [address] Application Tester: Mario Anne MD #### APROTS, APARVP, APROTC, ARUBGM #### [facility] [address] [place] [address] Application Tester: Fernando Valencia MD #### LUPPRO #### [address] [address] Application Tester: Geo Mar MD [address] [place] [address] Application Tester: Mario Anne MD CO2 [Moles/Vol] 20 mmol/L Normal 20-31 [facility] Comment on above: Performed By: #### T OXOM, HSVG12, CMVM, FA2, MATIAS, TOXOG, HSVM12, CMVG, FA5 #### [address] [address] Application Tester: Geo Mar MD #### CBC, FIB #### [address] [place] [address] Application Tester: Mario Anne MD #### APROTS, APARVP, APROTC, ARUBGM #### [facility] [address] [place] [address] Application Tester: Fernando Valencia MD #### LUPPRO #### [address] [address] Application Tester: Geo Mar MD [address] [place] [address] Application Tester: Mario Anne MD Creatinine [Mass/Vol] 0.88 mg/dL Normal 0.50-0.90 [facility] Comment on above: Performed By: #### T OXOM, HSVG12, CMVM, FA2, MATIAS, TOXOG, HSVM12, CMVG, FA5 #### [address] [address] Application Tester: Geo Mar MD #### CBC, FIB #### [address] [place] [address] Application Tester: Mario Anne MD #### APROTS, APARVP, APROTC, ARUBGM #### [facility] [address] [place] [address] Application Tester: Fernando Valencia MD #### LUPPRO #### [address] [address] Application Tester: Geo Mar MD [address] [place], [place] 2956383 Application Tester: Mario Anne MD GFR, Amer >60 Normal >[address] [facility] Comment on above: Performed By: #### T OXOM, HSVG12, CMVM, FA2, MATIAS, TOXOG, HSVM12, CMVG, FA5 #### [address] [address] Application Tester: Geo Mar MD #### CBC, FIB #### [address] [place], [place] 1070283 Application Tester: Mario Anne MD #### APROTS, APARVP, APROTC, ARUBGM #### [facility] [address] [place] [address] Application Tester: Fernando Valencia MD #### LUPPRO #### [address] [address] Application Tester: Geo Mar MD [address] [place], [place] 4179483 Application Tester: Mario Anne MD GFR,non Amer >60 Normal >60 [facility] Comment on above: Performed By: #### T OXOM, HSVG12, CMVM, FA2, MATIAS, TOXOG, HSVM12, CMVG, FA5 #### [address] [address] Application Tester: Geo Mar MD #### CBC, FIB #### [address] [place], [place] [id number] Application Tester: Mario Anne MD #### APROTS, APARVP, APROTC, ARUBGM #### [facility] [address] [place], [place] [id number] Application Tester: Fernando Valencia MD #### LUPPRO #### [address] [address] Application Tester: Geo Mar MD [address] [place], [place] [phone] Application Tester: Mario Anne MD Glucose [Mass/Vol] 123 mg/dL High 70-99 [facility] Comment on above: Performed By: #### T OXOM, HSVG12, CMVM, FA2, MATIAS, TOXOG, HSVM12, CMVG, FA5 #### [address] [address] Application Tester: Geo Mar MD #### CBC, FIB #### [address] [place], [place] [phone] Application Tester: Mario Anne MD #### APROTS, APARVP, APROTC, ARUBGM #### [facility] [address] [place], [place] [id number] Application Tester: Fernando Valencia MD #### LUPPRO #### [address] [address] Application Tester: Geo Mar MD [address] [place], [place] 0867383 Application Tester: Mario Anne MD Potassium [Moles/Vol] 3.7 mmol/L Normal 3.7-5.3 [facility] Comment on above: Performed By: #### T OXOM, HSVG12, CMVM, FA2, MATIAS, TOXOG, HSVM12, CMVG, FA5 #### [address] [address] Application Tester: Geo Mar MD #### CBC, FIB #### [facility] [address] [place] [address] [address] [place], [place] [phone] Application Tester: Mario Anne MD #### APROTS, APARVP, APROTC, ARUBGM #### [facility] [address] [place], [place] [id number] Application Tester: Fernando Valencia MD #### LUPPRO #### [address] [address] Application Tester: Geo Mar MD [facility] [address] [place] [address] [address], [place] [phone] Application Tester: Mario Anne MD Protein [Mass/Vol] 5.6 g/dL Low 6.4-8.3 [facility] Comment on above: Performed By: #### T OXOM, HSVG12, CMVM, FA2, MATIAS, TOXOG, HSVM12, CMVG, FA5 #### [address] [address] Application Tester: Geo Mar MD #### CBC, FIB #### [address] [place], [place] 6566483 Application Tester: Mario Anne MD #### APROTS, APARVP, APROTC, ARUBGM #### [facility] [address] [place], [place] [id number] Application Tester: Fernando Valencia MD #### LUPPRO #### [address] [address] Application Tester: Geo Mar MD [address] [place], [place] 3553483 Application Tester: Mario Anne MD Sodium [Moles/Vol] 139 mmol/L Normal 135-144 [facility] Comment on above: Performed By: #### T OXOM, HSVG12, CMVM, FA2, MATIAS, TOXOG, HSVM12, CMVG, FA5 #### [address] [address] Application Tester: Geo Mar MD #### CBC, FIB #### [address] [place], [place] 0779683 Application Tester: Mario Anne MD #### APROTS, APARVP, APROTC, ARUBGM #### [facility] [address] [place], [place] [id number] Application Tester: Fernando Valencia MD #### LUPPRO #### [address] [address] Application Tester: Geo Mar MD [address] [place] [phone] Application Tester: Mario Anne MD Staging: Normal [facility] Comment on above: Result Comment: Stag [...] FA2, MATIAS, TOXOG, HSVM12, CMVG, FA5 #### [address] [address] Application Tester: Geo Mar MD #### CBC, FIB #### [address] [place], [place] 8281483 Application Tester: Mario Anne MD #### APROTS, APARVP, APROTC, ARUBGM #### [facility] [address] [place] [address] Application Tester: Fernando Valencia MD #### LUPPRO #### [address] [id number] Application Tester: Geo Mar MD [facility] [address] [place] [address] Application Tester: Mario Anne MD Urea nitrogen [Mass/Vol] 7 mg/dL Normal 6-20 [facility] Comment on above: Performed By: #### T OXOM, HSVG12, CMVM, FA2, MATIAS, TOXOG, HSVM12, CMVG, FA5 #### [facility] [address] [place], [place] [phone] Application Tester: Geo Mar MD #### CBC, FIB #### [facility] [address] [place] [address] Application Tester: Mario Anne MD #### APROTS, APARVP, APROTC, ARUBGM #### [facility] [address] [place], [place] [id number] Application Tester: Fernando Valencia MD #### LUPPRO #### [facility] [address] [place], [place] [id number] Application Tester: Geo Mar MD [facility] [address] [place] [address] [place] [address] Application Tester: Mario Anne MD Comprehensive Metabolic Pane l w/ Reflex to MGon 11-30-2018 Albumin [Mass/Vol] 2.9 g/dL Low 3.5 - 5.2 g/dL [place], [place] Albumin/Globulin [Mass ratio] 1.1 {ratio} [place], [place] ALP [Catalytic activity/Vol] 41 U/L 35 - 104 U/L [place] ALT [Catalytic activity/Vol] 17 U/L 5 - 33 U/L [place] Anion gap [Moles/Vol] 14 mmol/L 9 - 17 mmol/L [place] AST [Catalytic activity/Vol] 14 U/L <32 [place] Bilirubin Ql (U) 0.16 mg/dL Low 0.3 - 1.2 mg/dL [place] Bun/Cre Ratio 8 Low [place], [place] Calcium [Mass/Vol] 8.4 mg/dL Low 8.6 - 10. 4 mg/dL [place] Chloride [Moles/Vol] 105 mmol/L 98 - 10 7 mmol/L [place] CO2 [Moles/Vol] 20 mmol/L 20 - 31 mmol/L [place] Creatinine [Mass/Vol] 0.88 mg/dL 0.5 - 0.9 mg/dL [place] GFR >60 >60 mL/min [place], [place] GFR Non- >60 >60 mL/min [place] Glucose [Mass/Vol] 123 mg/dL High 70 - 99 mg/dL [place] Interpretation and review of laboratory results Abnormal [place] Potassium [Moles/Vol] 3.7 mmol/L 3.7 - 5.3 mmol/L [place] Protein [Mass/Vol] 5.6 g/dL Low 6.4 - 8.3 g/dL [place] Sodium [Moles/Vol] 139 mmol/L 135 - 144 mmol/L [place] Urea nitrogen [Mass/Vol] 7 mg/dL 6 - 20 mg/dL [place] Cult,Urineon 11-30-2018 Cult,Urine Specimen Description .VOIDED URINE Special Requests NOT REPORTED Culture STREPTOCOCCI, BETA HEMOLYTIC GROUP B >[id number] CFU/ML Report Status FINAL 11/30/2018 Normal [facility] Comment on above: Performed By: #### T OXOM, HSVG12, CMVM, FA2, MATIAS, TOXOG, HSVM12, CMVG, FA5 #### [facility] [address] [place] [address] Application Tester: Geo Mar MD #### CBC, FIB #### [facility] [address] [place] [address] Application Tester: Mario Anne MD #### APROTS, APARVP, APROTC, ARUBGM #### [facility] [address] [place] [address] Application Tester: Fernando Valencia MD #### LUPPRO #### [address] [place], [place] [id number] Application Tester: Geo Mar MD [facility] [address] [place] [address] [place] [address] Application Tester: Mario Anne MD Metabolic Panelon 11-30-2018 GFR/1.73 sq M predicted among non-blacks MDRD (S/P/Bld) [Vol rate/Area] [place], [place] Comment on above: Stage 1: Some [...] body mass. Additional eGFR calculator available at: http://www.[employer]/multiple_crcl_2012.htm Vancomycin Troughon 12-01-19 19 Vancomycin Trough 22.3 ug/mL Critically high 10.0-20.0 [facility] Comment on above: Result Comment: High er trough serum vancomycin concentrations of 15-20 ug/mL are recommended for complicated infections such as bacteremia, endocarditis, osteomyelitis, meningitis, and hospital acquired pneumonia. Performed By: #### T OXOM, HSVG12, CMVM, FA2, MATIAS, TOXOG, HSVM12, CMVG, FA5 #### [facility] [address] [place], [place] [id number] Application Tester: Geo Mar MD #### CBC, FIB #### [facility] [address] [place] [address] Application Tester: Mario Anne MD #### APROTS, APARVP, APROTC, ARUBGM #### [facility] [address] [place] [address] Application Tester: Fernando Valencia MD #### LUPPRO #### [address] [address] Application Tester: Geo Mar MD [address] [place], [place] [phone] Application Tester: Mario Anne MD Date last dose, NOT REPORTED Normal [facility] Comment on above: Performed By: #### T OXOM, HSVG12, CMVM, FA2, MATIAS, TOXOG, HSVM12, CMVG, FA5 #### [address] [address] Application Tester: Geo Mar MD #### CBC, FIB #### [address] [place], [place] [phone] Application Tester: Mario Anne MD #### APROTS, APARVP, APROTC, ARUBGM #### [facility] [address] [place] [address] Application Tester: Fernando Valencia MD #### LUPPRO #### [address] [address] Application Tester: Geo Mar MD [address] [place], [place] 3439383 Application Tester: Mario Anne MD Dose amount, NOT REPORTED Normal [facility] Comment on above: Performed By: #### T OXOM, HSVG12, CMVM, FA2, MATIAS, TOXOG, HSVM12, CMVG, FA5 #### [address] [address] Application Tester: Geo Mar MD #### CBC, FIB #### [address] [place] [address] Application Tester: Mario Anne MD #### APROTS, APARVP, APROTC, ARUBGM #### [facility] [address] [place], [place] [id number] Application Tester: Fernando Valencia MD #### LUPPRO #### [address] [address] Application Tester: Geo Mar MD [address] [place], [place] 1677983 Application Tester: Mario Anne MD Time last dose, NOT REPORTED Normal [facility] Comment on above: Performed By: #### T OXOM, HSVG12, CMVM, FA2, MATIAS, TOXOG, HSVM12, CMVG, FA5 #### [address] [address] Application Tester: Geo Mar MD #### CBC, FIB #### [address] [place] [address] Application Tester: Mario Anne MD #### APROTS, APARVP, APROTC, ARUBGM #### [facility] [address] [place], [place] [id number] Application Tester: Fernando Valencia MD #### LUPPRO #### [address] [address] Application Tester: Geo Mar MD [address] [place] [address] Application Tester: Mario Anne MD Vancomycin, troughon 019 Interpretation and review of laboratory results Abnormal [place], [place] Vancomycin Tr 22.3 ug/mL Critically high 10 - 20 ug/mL [place] Comment on above: Higher trough serum vancomycin concentrations of 15-20 ug/mL are recommended for complicated infections such as bacteremia, endocarditis, osteomyelitis, meningitis, and hospital acquired pneumonia. Vancomycin Trough Date last dose NOT REPORTED [place], [place] Vancomycin Trough Dose amount NOT REPORTED [facility] Time last dose NOT REPORTED [facility] CBCon 11-29-2018 Erythrocyte distribution width (RBC) [Ratio] 13.4 % Normal 11.8-14.4 [facility] Comment on above: Performed By: #### T YS #### [address] [place] [address] Application Tester: Mario Anne MD Hematocrit (Bld) [Volume fraction] 27.2 % Low 36.3-47.1 [facility] Comment on above: Performed By: #### T YS #### [address] [place] [address] Application Tester: Mario Anne MD Hemoglobin (Bld) [Mass/Vol] 8.3 g/dL Low 11.9-15.1 [facility] Comment on above: Performed By: #### T YS #### [address] [place] [address] Application Tester: Mario Anne MD MCH (RBC) [Entitic mass] 27.9 pg Normal 25.2-33.5 [facility] Comment on above: Performed By: #### T YS #### [address] [place] [address] Application Tester: Mario Anne MD MCHC (RBC) [Mass/Vol] 30.5 g/dL Normal 28.4-34.8 [facility] Comment on above: Performed By: #### T YS #### [address] [place] [address] Application Tester: Mario Anne MD MCV (RBC) [Entitic vol] 91.3 fL Normal 82.6-102.9 [facility] Comment on above: Performed By: #### T YS #### [address] [place] [address] Application Tester: Mario Anne MD NRBC Automated 0.0 per 100 WBC Normal 0.0 [facility] Comment on above: Performed By: #### T YS #### [facility] [address] [place] [address] Application Tester: Mario Anne MD Platelet mean volume (Bld) [Entitic vol] 9.6 fL Normal 8.1-13.5 [facility] Comment on above: Performed By: #### T YS #### [facility] [address] [place] [address] Application Tester: Mario Anne MD Platelets (Bld) [#/Vol] 243 10*3/uL Normal 138-453 [facility] Comment on above: Performed By: #### T YS #### [facility] [address] [place] [address] Application Tester: Mario Anne MD RBC (Bld) [#/Vol] 2.98 10*6/uL Low 3.95-5.11 [facility] Comment on above: Performed By: #### T YS #### [facility] [address] [place] [address] Application Tester: Mario Anne MD WBC (Bld) [#/Vol] 16.6 10*3/uL High 3.5-11.3 [facility] Comment on above: Performed By: #### T YS #### [facility] [address] [place] [id number] Application Tester: Mario Anne MD Erythrocyte distribution width (RBC) [Ratio] 13.4 % 11.8 - 14.4 % [place] Hematocrit (Bld) [Volume fraction] 27.2 % Low 36.3 - 47.1 % [place] Hemoglobin (Bld) [Mass/Vol] 8.3 g/dL Low 11.9 - 15.1 g/dL [place] Interpretation and review of laboratory results Abnormal [place] MCH (RBC) [Entitic mass] 27.9 pg 25.2 - 33.5 pg [place] MCHC (RBC) [Mass/Vol] 30.5 g/dL 28.4 - 34.8 g/dL [place] MCV (RBC) [Entitic vol] 91.3 fL 82.6 - 102.9 fL [place] Platelet mean volume (Bld) [Entitic vol] 9.6 fL 8.1 - 13.5 fL [place] Platelets (Bld) [#/Vol] 243 10*3/uL [place] RBC (Bld) [#/Vol] 2.98 10*6/uL Low 3.95 - 5.1 1 m/uL [place] WBC (Bld) [#/Vol] 16.6 10*3/uL High [place] WBC (Bld) [#/Vol] 0.0 10*3/uL 0.0 per 10 0 WBC [place] CONSULTATIONon 11-29-[address] [id number] CONSULTATION PATIENT NAME: DEION CUMMINGS : 1995 MED REC NO: [id number] ROOM: 0328 ACCOUNT NO: [id number] ADMIT DATE: 11/28/2018 PROVIDER: Jennifer Hedrick CONSULT [...] the consultation in this matter. JENNIFER HEDRICK VANNA/[email or web address] Doc#: [id number] CC: [facility] Comp Metabolic Pr/rfx MGon 0 11-29-2018 (cont.) [facility] Comment on above: Result Comment: Aver age GFR for 20-29 years old: 116 mL/min/1.73sq m Chronic Kidney Disease: <60 mL/min/1.73sq m Kidney failure: <15 mL/min/1.73sq m eGFR calculated using average adult body mass. Additional eGFR calculator available at: http://www.[employer].com/multiple_crcl_2012.htm Performed By: #### T YS #### [facility] [address] [place] [address] Application Tester: Mario Anne MD Albumin [Mass/Vol] 3.1 g/dL Low 3.5-5.2 [facility] Comment on above: Performed By: #### T YS #### [facility] [address] [place], [place] [id number] Application Tester: Mario Anne MD Albumin/Globulin [Mass ratio] 1.2 {ratio} Normal 1.0-2.5 [facility] Comment on above: Performed By: #### T YS #### [facility] [address] [place], [place] [id number] Application Tester: Mario Anne MD Alkaline Phos 38 U/L Normal 35-104 [facility] Comment on above: Performed By: #### T YS #### [facility] [address] [place], [place] 2770483 Application Tester: Mario Anne MD ALT [Catalytic activity/Vol] 15 U/L Normal 5-33 [facility] Comment on above: Performed By: #### T YS #### [facility] [address] [place], [place] 2645583 Application Tester: Mario Anne MD Anion gap [Moles/Vol] 13 mmol/L Normal 9-17 [facility] Comment on above: Performed By: #### T YS #### [facility] [address] [place], [place] [phone] Application Tester: Mario Anne MD AST [Catalytic activity/Vol] 11 U/L Normal <32 [facility] Comment on above: Performed By: #### T YS #### [facility] [address] [place], [place] [phone] Application Tester: Mario Anne MD Bilirubin Ql (U) 0.56 mg/dL Normal 0.3-1.[address] [facility] Comment on above: Performed By: #### T YS #### [facility] [facility] [address] [place], [place] [id number] Application Tester: Mario Anne MD BUN/CRE Ratio 9 Normal 9-20 [facility] Comment on above: Performed By: #### T YS #### [facility] [address] [place], [place] [id number] Application Tester: Mario Anne MD Calcium [Mass/Vol] 8.5 mg/dL Low 8.6-10.4 [facility] Comment on above: Performed By: #### T YS #### [facility] [address] [place], [place] [id number] Application Tester: Mario Anne MD Chloride [Moles/Vol] 101 mmol/L Normal 98-107 [facility] Comment on above: Performed By: #### T YS #### [facility] [address] [place], [place] [id number] Application Tester: Mario Anne MD CO2 [Moles/Vol] 20 mmol/L Normal 20-31 [facility] Comment on above: Performed By: #### T YS #### [facility] [address] [place], [place] [id number] Application Tester: Mario Anne MD Creatinine [Mass/Vol] 0.80 mg/dL Normal 0.50-0.90 [facility] Comment on above: Performed By: #### T YS #### [facility] [address] [place], [place] [id number] Application Tester: Mario Anne MD GFR, Amer >60 Normal >[address] [facility] Comment on above: Performed By: #### T YS #### [facility] [address] [place], [place] [id number] Application Tester: Mario Anne MD GFR,non Amer >60 Normal >60 [facility] Comment on above: Performed By: #### T YS #### [facility] [address] [place], [place] [id number] Application Tester: Mario Anne MD Glucose [Mass/Vol] 121 mg/dL High 70-99 [facility] Comment on above: Performed By: #### T YS #### [facility] [address] [place], [place] [id number] Application Tester: Mario Anne MD Potassium [Moles/Vol] 3.4 mmol/L Low 3.7-5.3 [facility] Comment on above: Performed By: #### T YS #### [facility] [address] [place], [place] [id number] Application Tester: Mario Anne MD Protein [Mass/Vol] 5.7 g/dL Low 6.4-8.3 [facility] Comment on above: Performed By: #### T YS #### [facility] [address] [place], [place] [id number] Application Tester: Mario Anne MD Sodium [Moles/Vol] 134 mmol/L Low 135-144 [facility] Comment on above: Performed By: #### T YS #### [facility] [address] [place], [place] [id number] Application Tester: Mario Anne MD Staging: Normal [facility] Comment on above: Result Comment: Stag e 1: Some kidney damage normal GFR Stage 2: Mild kidney damage GFR 60-89 Stage 3: Moderate kidney damage GFR 30-59 Stage 4: Severe kidney damage GFR 15-29 Stage 5: Severe kidney damage GFR <15 ESRD - chronic treatment by dialysis or transplant Performed By: #### T YS #### [facility] [address] [place], [place] [id number] Application Tester: Mario Anne MD Urea nitrogen [Mass/Vol] 7 mg/dL Normal 6-20 [facility] Comment on above: Performed By: #### T YS #### [facility] [address] [place], [place] [id number] Application Tester: Mario Anne MD Comprehensive Metabolic Pane l w/ Reflex to MGon 11-29-2018 Albumin [Mass/Vol] 3.1 g/dL Low 3.5 - 5.2 g/dL [place], [place] Albumin/Globulin [Mass ratio] 1.2 {ratio} [place] ALP [Catalytic activity/Vol] 38 U/L 35 - 104 U/L [place] ALT [Catalytic activity/Vol] 15 U/L 5 - 33 U/L [place] Anion gap [Moles/Vol] 13 mmol/L 9 - 17 mmol/L [place] AST [Catalytic activity/Vol] 11 U/L <32 [place] Bilirubin Ql (U) 0.56 mg/dL 0.3 - 1.2 mg/dL [place] Bun/Cre Ratio 9 [place] Calcium [Mass/Vol] 8.5 mg/dL Low 8.6 - 10. 4 mg/dL [place] Chloride [Moles/Vol] 101 mmol/L 98 - 10 7 mmol/L [place] CO2 [Moles/Vol] 20 mmol/L 20 - 31 mmol/L [place] Creatinine [Mass/Vol] 0.8 mg/dL 0.5 - 0.9 mg/dL [place] GFR >60 >60 mL/min [place] GFR Non- >60 >60 mL/min [place] Glucose [Mass/Vol] 121 mg/dL High 70 - 99 mg/dL [place] Interpretation and review of laboratory results Abnormal [place] Potassium [Moles/Vol] 3.4 mmol/L Low 3.7 - 5.3 mmol/L [place] Protein [Mass/Vol] 5.7 g/dL Low 6.4 - 8.3 g/dL [place] Sodium [Moles/Vol] 134 mmol/L Low 135 - 144 mmol/L [place] Urea nitrogen [Mass/Vol] 7 mg/dL 6 - 20 mg/dL [place] Factor II Activityon 019 Factor II Activity 120 % Normal 50-150 [facility] Comment on above: Performed By: #### C BC #### [facility] [address] [place], [place] [id number] Application Tester: Mario Anne MD Factor V Activityon 11-30-19 19 Factor V Activity 120 % Normal 50-150 [facility] Comment on above: Performed By: #### C BC #### [facility] [address] [place] [id number] Application Tester: Mario Anne MD Lupus Anticoagulanton 2018 Dilute Alexandr Viper Negative Normal NLUP [facility] Comment on above: Performed By: #### C BC #### [facility] [address] [place] [id number] Application Tester: Mario Anne MD Magnesiumon 11-29-2018 Magnesium [Mass/Vol] 1.9 mg/dL Normal 1.6-2.6 [facility] Comment on above: Performed By: #### T YS #### [facility] [address] [place] [id number] Application Tester: Mario Anne MD Magnesium [Mass/Vol] 1.9 mg/dL 1.6 - 2 .6 mg/dL [place] Metabolic Panelon 11-29-2018 GFR/1.73 sq M predicted among non-blacks MDRD (S/P/Bld) [Vol rate/Area] [place], [place] Comment on above: Average GFR for 20-2 9 years old: 116 mL/min/1.73sq m Chronic Kidney Disease: <60 mL/min/1.73sq m Kidney failure: <15 mL/min/1.73sq m eGFR calculated using average adult body mass. Additional eGFR calculator available at: http://www.[employer]/multiple_crcl_2012.htm Stage 1: Some kidney damage normal GFR [...] Nba Thomas MD 11/29/18 Final result Normal [facility] No retained products demonstrated. [facility] [place], pn Incoming Radiant Results From [facility] - 11/29/2018 12:12 AM EDT EXAMINATION: PELVIC ULTRASOUND 11/28/2018 TECHNIQUE: Transabdominal pelvic ultrasound COMPARISON: None HISTORY: ORDERING SYSTEM PROVIDED HISTORY: Rule out retained products of conception FINDINGS: No intrauterine gestational sac is identified. The endometrium measures up to 6.7 mm in thickness. No retained products of conception are demonstrated. IMPRESSION: No retained products demonstrated. [facility] [place] EXAMINATION: PELVIC ULTRASOUND 11/28/2018 TECHNIQUE: Transabdominal pelvic ultrasound COMPARISON: None HISTORY: ORDERING SYSTEM PROVIDED HISTORY: Rule out retained products of conception FINDINGS: No intrauterine gestational sac is identified. The endometrium measures up to 6.7 mm in thickness. No retained products of conception are demonstrated. [facility] [place] VL DUP LOWER EXTREMITY VENOU S BILATERALon 11-29-2018 [place], pn Incoming Cardio Results From [facility] - 11/29/2018 3:57 PM EDT [facility] Vascular Lower Extremities DVT Study Procedure Patient Name TOMY Date of Study 11/29/2018 DEION L Date of 1995 Gender Female Age 23 year(s) Race Room Number 0328 Corporate ID [id number] # Patient Acct [id number] # MR # [id number] Rn Perioperative CARLOS Carey Interpreting Physician Matt Mayer MD [...] !Phasic! ! ! + ------+------+------+- --------- + [facility] Vascular Lower Extremities DVT Study Procedure Patient Name TOMY Date of Study 11/29/2018 DEION Lopez Date of 1995 Gender Female Age 23 year(s) Race Room Number 0328 Corporate ID [id number] # Patient Acct [id number] # MR # [id number] Rn Perioperative CARLOS Carey Interpreting Physician Matt Mayer MD [...] !Popliteal !Phasic! ! ! + ------+------+------+- ---------+ [facility] [employer] [place] APTTon 11-28-2018 aPTT Coag (Bld) [Time] 21.5 s Low 23.2-34.4 [facility] Comment on above: Performed By: #### L IP, CMPX, PT, CDP, PTT ####[facility] [place] [address] [facility] Director: Mario Anne MD aPTT Coag (Bld) [Time] 21.5 s Low [facility] [employer] [place], [employer] Blood gas, venouson 11-29-19 19 Marco Test NOT REPORTED [facility] [employer] [place] aPTT Coag (Bld) [Time] NOT REPORTED [facility] [employer] Carboxyhemoglobin 0 - 5 % [facility]- [place] FIO2 NOT REPORTED [facility] [place], [place] HCO3, Venous 20.5 mmol/L Low 24 - 30 mmol/L [facility] Interpretation and review of laboratory results Abnormal [facility] [place], [place] Methemoglobin NOT REPORTED 0 - 1.9 % [facility]- [place], [place] Mode NOT REPORTED [place] Negative Base Excess, [place] 2.9 mmol/L High 0 - 2 mmol/L [place] NOTIFICATION NOT REPORTED [place] NOTIFICATION TIME NOT REPORTED [place] O2 Device/Flow/% NOT REPORTED [place] Oxygen saturation in Blood 40.2 % Low 60 - 85 % [place] Oxyhemoglobin NOT REPORTED 95 - 98 % [place] pCO2, [place] 31.9 Low [place] pCO2, [place], Temp Adj NOT REPORTED [place], [place] Peep/Cpap NOT REPORTED [place] pH, [place] 7.425 High [place] pH, [place], Temp Adj NOT REPORTED [place] pO2, [place] 22.2 Low [place] pO2, [place], Temp Adj NOT REPORTED [place] Positive Base Excess, [place] NOT REPORTED 0 - 2 mmol/L [place] PSV NOT REPORTED [place] Pt. Position NOT REPORTED [place] Sample Site NOT REPORTED [place] Set Rate NOT REPORTED [place] Text for Respiratory NOT REPORTED [place] Total Hb NOT REPORTED 12 - 16 g/dl [place] Total Rate NOT REPORTED [place] VT NOT REPORTED [place] CBC auto differentialon 11-19 Basophils (Bld) [#/Vol] 0.03 10*3/uL [place] Basophils/100 WBC (Bld) 0 % 0 - 2 % [place] Differential Type NOT REPORTED [place] Eosinophils (Bld) [#/Vol] 0.17 10*3/uL [place] Eosinophils/100 WBC (Bld) 1 % 1 - 4 % [place] Erythrocyte distribution width (RBC) [Ratio] 13.3 % 11.8 - 14.4 % [place] Hematocrit (Bld) [Volume fraction] 30.5 % Low 36.3 - 47.1 % [place] Hemoglobin (Bld) [Mass/Vol] 9.6 g/dL Low 11.9 - 15.1 g/dL [place] Immature granulocytes (Bld) [#/Vol] 1 % High 0 [place] Immature granulocytes (Bld) [#/Vol] 0.09 10*3/uL [place] Interpretation and review of laboratory results Abnormal [place] Lymphocytes (Bld) [#/Vol] 0.80 10*3/uL Low [place] Lymphocytes/100 WBC (Bld) 5 % Low 24 - 43 % [place] MCH (RBC) [Entitic mass] 28.1 pg 25.2 - 33.5 pg [place] MCHC (RBC) [Mass/Vol] 31.5 g/dL 28.4 - 34.8 g/dL [place] MCV (RBC) [Entitic vol] 89.2 fL 82.6 - 102.9 fL [place] Monocytes (Bld) [#/Vol] 0.65 10*3/uL [place] Monocytes/100 WBC (Bld) 4 % 3 - 12 % [place] Platelet mean volume (Bld) [Entitic vol] 9.9 fL 8.1 - 13.5 fL [place] Platelets (Bld) [#/Vol] 305 10*3/uL [place] Platelets (Bld) [#/Vol] NOT REPORTED [place] RBC (Bld) [#/Vol] 3.42 10*6/uL Low 3.95 - 5.1 1 m/uL [place] RBC morphology finding Nom (Bld) NOT REPORTED [place] Segmented neutrophils/100 WBC (Bld) 89 % High 36 - 65 % [place] Segs Absolute 15.13 High [place] WBC (Bld) [#/Vol] 16.9 10*3/uL [place] WBC (Bld) [#/Vol] 0.0 10*3/uL 0.0 per 10 0 WBC [place] WBC Morphology NOT REPORTED [place] CBC with Diffon 11-28-2018 Abs. Basophil 0.03 k/uL Normal 0.00-0.20 [facility] Comment on above: Performed By: #### L IP, CMPX, PT, CDP, PTT ####[address] [place] [address]([facility])[phone] Director: Mario Anne MD Abs.Imm.Granulocyte 0.09 k/uL Normal 0.00-0.30 [facility] Comment on above: Performed By: #### L IP, CMPX, PT, CDP, PTT ####[address] [place], [place] [id number] Lab Director: Mario Anne MD Abs.Neutrophil (Seg) 15.13 k/uL High 1.50-8.10 [facility] Comment on above: Performed By: #### L IP, CMPX, PT, CDP, PTT ####[address] , [place] [id number] lab Director: Mario Anne MD Basophils/100 WBC (Bld) 0 % Normal 0-2 [facility] Comment on above: Performed By: #### L IP, CMPX, PT, CDP, PTT ####[address] [place] [address] Lab Director: Mario Anne MD Eosinophils (Bld) [#/Vol] 0.17 10*3/uL Normal 0.00-0.44 [facility] Comment on above: Performed By: #### L IP, CMPX, PT, CDP, PTT ####[address] [place], [place] [address] Lab Director: Mario Anne MD Eosinophils/100 WBC (Bld) 1 % Normal 1-4 [facility] Comment on above: Performed By: #### L IP, CMPX, PT, CDP, PTT ####[address] , [place] [address])[phone] Director: Mario Anne MD Erythrocyte distribution width (RBC) [Ratio] 13.3 % Normal 11.8-14.4 [facility] Comment on above: Performed By: #### L IP, CMPX, PT, CDP, PTT ####[address] , [place] [address])[phone] Director: Mario Anne MD Hematocrit (Bld) [Volume fraction] 30.5 % Low 36.3-47.1 [facility] Comment on above: Performed By: #### L IP, CMPX, PT, CDP, PTT ####[address] , [place])[phone] Director: Mario Anne MD Hemoglobin (Bld) [Mass/Vol] 9.6 g/dL Low 11.9-15.1 [facility] Comment on above: Performed By: #### L IP, CMPX, PT, CDP, PTT ####[address] , [place] [address])[phone] Director: Mario Anne MD Immature granulocytes (Bld) [#/Vol] 1 % High 0 [facility] Comment on above: Performed By: #### L IP, CMPX, PT, CDP, PTT ####[address] , [place] [address])[phone] Director: Mario Anne MD Lymphocytes (Bld) [#/Vol] 0.80 10*3/uL Low 1.10-3.70 [facility] Comment on above: Performed By: #### L IP, CMPX, PT, CDP, PTT ####[address] , [place])[phone] Director: Mario Anne MD Lymphocytes/100 WBC (Bld) 5 % Low 24-43 [facility] Comment on above: Performed By: #### L IP, CMPX, PT, CDP, PTT ####[address] [place] [address]([facility])[phone] Director: Mario Anne MD MCH (RBC) [Entitic mass] 28.1 pg Normal 25.2-33.5 [facility] Comment on above: Performed By: #### L IP, CMPX, PT, CDP, PTT ####[address] , [place])[phone] Director: Mario Anne MD MCHC (RBC) [Mass/Vol] 31.5 g/dL Normal 28.4-34.8 [facility] Comment on above: Performed By: #### L IP, CMPX, PT, CDP, PTT ####[address] , [place] [facility])[phone] Director: Mario Anne MD MCV (RBC) [Entitic vol] 89.2 fL Normal 82.6-102.9 [facility] Comment on above: Performed By: #### L IP, CMPX, PT, CDP, PTT ####[address] , [place])[phone] Director: Mario Anne MD Monocytes (Bld) [#/Vol] 0.65 10*3/uL Normal 0.10-1.20 [facility] Comment on above: Performed By: #### L IP, CMPX, PT, CDP, PTT ####[address] , [facility] Lab Director: Mario Anne MD Monocytes/100 WBC (Bld) 4 % Normal 3-12 [facility] Comment on above: Performed By: #### L IP, CMPX, PT, CDP, PTT ####[address] , [place] [phone] Lab Director: Mario Anne MD Neutrophil (Seg) 89 % High 36-[address] [facility] Comment on above: Performed By: #### L IP, CMPX, PT, CDP, PTT ####[address] , [place] [phone] Lab Director: Mario Anne MD NRBC Automated 0.0 per 100 WBC Normal 0.0 [facility] Comment on above: Performed By: #### L IP, CMPX, PT, CDP, PTT ####[address] , [facility] Lab Director: Mario Anne MD Platelet mean volume (Bld) [Entitic vol] 9.9 fL Normal 8.1-13.5 [facility] Comment on above: Performed By: #### L IP, CMPX, PT, CDP, PTT ####[address] , [place])[phone] Director: Mario Anne MD Platelets (Bld) [#/Vol] 305 10*3/uL Normal 138-453 [facility] Comment on above: Performed By: #### L IP, CMPX, PT, CDP, PTT ####[address] , [place])[phone] Director: Mario Anne MD RBC (Bld) [#/Vol] 3.42 10*6/uL Low 3.95-5.11 [facility] Comment on above: Performed By: #### L IP, CMPX, PT, CDP, PTT ####[address] , [place]83[facility])[phone] Director: Mario Anne MD WBC (Bld) [#/Vol] 16.9 10*3/uL High 3.5-11.3 [facility] Comment on above: Performed By: #### L IP, CMPX, PT, CDP, PTT ####[address] , [place] [phone] Lab Director: Mario Anne MD Auto Diff Performed NOT REPORTED Normal [facility] Comment on above: Performed By: #### L IP, CMPX, PT, CDP, PTT ####[address] [place] [address] Lab Director: Mario Anne MD Platelets (Bld) [#/Vol] NOT REPORTED Normal [facility] Comment on above: Performed By: #### L IP, CMPX, PT, CDP, PTT ####[address] [place] [address] Lab Director: Mario Anne MD RBC morphology finding Nom (Bld) NOT REPORTED Normal [facility] Comment on above: Performed By: #### L IP, CMPX, PT, CDP, PTT ####[address] [place] [address] Lab Director: Mario Anne MD WBC Morphology NOT REPORTED Normal [facility] Comment on above: Performed By: #### L IP, CMPX, PT, CDP, PTT ####[address] [place] [address] Lab Director: Mario Anne MD CT ABDOMEN PELVIS [...] Graeme Stewart MD 11/28/18 Final result Normal [facility] EXAMINATION: CT OF T ABDOMEN AND PELVIS WITHOUT CONTRAST 11/28/2018 8:25 [...] No lymphadenopathy within the abdomen or pelvis. [place], [place] No evidence for acut e intra-abdominal or intrapelvic pathology. No bowel obstruction or inflammation. No free intraperitoneal air or fluid. No evidence for urinary obstruction. Normal appendix. 2.5 cm exophytic lesion arising from the interpolar region of the right kidney, indeterminate. Further evaluation with renal ultrasound is recommended on a nonemergent/outpatient basis. [place], [place], pn Incoming Radiant Results From [facility] - 11/28/2018 8:59 PM EDT EXAMINATION: CT [...] ultrasound is recommended on a nonemergent/outpatient basis. [facility]- [place], [place] Comp Metabolic Pr/rfx MGon 0 11-28-2018 AST [Catalytic activity/Vol] 23 U/L Normal <32 [facility] Comment on above: Performed By: #### L IP, CMPX, PT, CDP, PTT ####[facility] [place] [address] Lab Director: Mario Anne MD (cont.) [facility] Comment on above: Result Comment: Aver age GFR for 20-29 years old: 116 mL/min/1.73sq m Chronic Kidney Disease: <60 mL/min/1.73sq m Kidney failure: <15 mL/min/1.73sq m eGFR calculated using average adult body mass. Additional eGFR calculator available at: http://www.[employer]/multiple_crcl_2012.htm Performed By: #### L IP, CMPX, PT, CDP, PTT ####[facility] [place] [address] lab Director: Mario Anne MD Albumin [Mass/Vol] 3.7 g/dL Normal 3.5-5.2 [facility] Comment on above: Performed By: #### L IP, CMPX, PT, CDP, PTT ####[address] [id number] [facility] Director: Mario Anne MD Albumin/Globulin [Mass ratio] 1.2 {ratio} Normal 1.0-2.5 [facility] Comment on above: Performed By: #### L IP, CMPX, PT, CDP, PTT ####[address] , [place] [phone] lab Director: Mario Anne MD Alkaline Phos 47 U/L Normal 35-104 [facility] Comment on above: Performed By: #### L IP, CMPX, PT, CDP, PTT ####[address] , [place] [phone] lab Director: Mario Anne MD ALT [Catalytic activity/Vol] 18 U/L Normal 5-33 [facility] Comment on above: Performed By: #### L IP, CMPX, PT, CDP, PTT ####[address] , [place] 55[address]83 lab Director: Mario Anne MD Anion gap [Moles/Vol] 16 mmol/L Normal 9-17 [facility] Comment on above: Performed By: #### L IP, CMPX, PT, CDP, PTT ####[address] , [place] 808[address] lab Director: Mario Anne MD Bilirubin Ql (U) 0.33 mg/dL Normal 0.3-1.[address] [facility] Comment on above: Performed By: #### L IP, CMPX, PT, CDP, PTT ####[address] , [place] [phone] lab Director: Mario Anne MD BUN/CRE Ratio 10 Normal 9-20 [facility] Comment on above: Performed By: #### L IP, CMPX, PT, CDP, PTT ####[address] , [place] [phone] lab Director: Mario Anne MD Calcium [Mass/Vol] 9.1 mg/dL Normal 8.6-10.4 [facility] Comment on above: Performed By: #### L IP, CMPX, PT, CDP, PTT ####[address] , [place] [phone] lab Director: Mario Anne MD Chloride [Moles/Vol] 102 mmol/L Normal 98-107 [facility] Comment on above: Performed By: #### L IP, CMPX, PT, CDP, PTT ####[address] , [place] 715[address]83 lab Director: Mario Anne MD CO2 [Moles/Vol] 20 mmol/L Normal 20-31 [facility] Comment on above: Performed By: #### L IP, CMPX, PT, CDP, PTT ####[address] , [place] 933[address] lab Director: Mario Anne MD Creatinine [Mass/Vol] 0.81 mg/dL Normal 0.50-0.90 [facility] Comment on above: Performed By: #### L IP, CMPX, PT, CDP, PTT ####[address] , [place] 212[address]83 lab Director: Mario Anne MD GFR, Amer >60 Normal >[address] [facility] Comment on above: Performed By: #### L IP, CMPX, PT, CDP, PTT ####[address] , [place] [phone] lab Director: Mario Anne MD GFR,non Amer >60 Normal >60 [facility] Comment on above: Performed By: #### L IP, CMPX, PT, CDP, PTT ####[address] , [place] [phone] lab Director: Mario Anne MD Glucose [Mass/Vol] 93 mg/dL Normal 70-99 [facility] Comment on above: Performed By: #### L IP, CMPX, PT, CDP, PTT ####[address] [place] [address] lab Director: Mario Anne MD Potassium [Moles/Vol] 3.8 mmol/L Normal 3.7-5.3 [facility] Comment on above: Performed By: #### L IP, CMPX, PT, CDP, PTT ####[address] [place] [address] lab Director: Mario Anne MD Protein [Mass/Vol] 6.9 g/dL Normal 6.4-8.3 [facility] Comment on above: Performed By: #### L IP, CMPX, PT, CDP, PTT ####[address] [place] [address] lab Director: Mario Anne MD Sodium [Moles/Vol] 138 mmol/L Normal 135-144 [facility] Comment on above: Performed By: #### L IP, CMPX, PT, CDP, PTT ####[address] [place] [address] lab Director: Mario Anne MD Staging: Normal [facility] Comment on above: Result Comment: Stag e 1: Some kidney damage normal GFR Stage 2: Mild kidney damage GFR 60-89 Stage 3: Moderate kidney damage GFR 30-59 Stage 4: Severe kidney damage GFR 15-29 Stage 5: Severe kidney damage GFR <15 ESRD - chronic treatment by dialysis or transplant Performed By: #### L IP, CMPX, PT, CDP, PTT ####[address] [place] [address] lab Director: Mario Anne MD Urea nitrogen [Mass/Vol] 8 mg/dL Normal 6-20 [facility] Comment on above: Performed By: #### L IP, CMPX, PT, CDP, PTT ####[address] [place] [address] [facility] Director: Mario Anne MD Comprehensive Metabolic Pane l w/ Reflex to MGon 11-28-2018 Albumin [Mass/Vol] 3.7 g/dL 3.5 - 5.2 g/dL [place] Albumin/Globulin [Mass ratio] 1.2 {ratio} [place] ALP [Catalytic activity/Vol] 47 U/L 35 - 104 U/L [place] ALT [Catalytic activity/Vol] 18 U/L 5 - 33 U/L [place] Anion gap [Moles/Vol] 16 mmol/L 9 - 17 mmol/L [place] AST [Catalytic activity/Vol] 23 U/L <32 [place], [place] Bilirubin Ql (U) 0.33 mg/dL 0.3 - 1.2 mg/dL [place] Bun/Cre Ratio 10 [place], [place] Calcium [Mass/Vol] 9.1 mg/dL 8.6 - 10. 4 mg/dL [place] Chloride [Moles/Vol] 102 mmol/L 98 - 10 7 mmol/L [place] CO2 [Moles/Vol] 20 mmol/L 20 - 31 mmol/L [place] Creatinine [Mass/Vol] 0.81 mg/dL 0.5 - 0.9 mg/dL [place] GFR >60 >60 mL/min [place], [place] GFR Non- >60 >60 mL/min [place] Glucose [Mass/Vol] 93 mg/dL 70 - 99 mg/dL [place] Potassium [Moles/Vol] 3.8 mmol/L 3.7 - 5.3 mmol/L [place] Protein [Mass/Vol] 6.9 g/dL 6.4 - 8.3 g/dL [place] Sodium [Moles/Vol] 138 mmol/L 135 - 144 mmol/L [place] Urea nitrogen [Mass/Vol] 8 mg/dL 6 - 20 mg/dL [facility] [place] Herpes Type I/II, IgGon 11-19 Herpes Type I, IgG 1.22 High <0.91 [facility] Comment on above: Result Comment: Reference Range: <=0.90 Negative 0.91-1.09 Equivocal >=1.10 Positive Performed By: #### C BC #### [facility] [address] [place] [address] [address] [place], [place] [id number] Application Tester: Mario Anne MD Herpes Type II, IgG 0.56 Normal <0.91 [facility] Comment on above: Result Comment: Reference Range: <=0.90 Negative 0.91-1.09 Equivocal >=1.10 Positive Performed By: #### C BC #### [address] [place] [address] Application Tester: Mario Anne MD Herpes Type I/II,IgMon 11-28 Herpes Type I/II,IgM 1.09 High <0.91 [facility] Comment on above: Result Comment: [...] weeks. Performed By: #### C BC #### [address] [place] [address] Application Tester: Mario Anne MD Lactate, Sepsison 11-28-2018 Lactic Acid, Sepsis 1.8 mmol/L Normal 0.5-1.9 [facility] Comment on above: Performed By: #### T YS #### [address] [place] [address] Application Tester: Mario Anne MD Lactic Acid,Sep Wbld NOT REPORTED Normal 0.5-1.9 [facility] Comment on above: Performed By: #### T YS #### [address] [place], [place] [id number] Application Tester: Mario Anne MD Lactic Acid, Sepsis 1.8 mmol/L 0.5 - 1. 9 mmol/L [place] Lactic Acid, Sepsis, Whole Blood NOT REPORTED 0.5 - 1.9 mmol/L [place] Lipaseon 11-28-2018 Lipase [Catalytic activity/Vol] 21 U/L Normal 13-60 [facility] Comment on above: Performed By: #### L IP, CMPX, PT, CDP, PTT ####[facility] [place] [address] Lab Director: Mario Anne MD Lipase [Catalytic activity/Vol] 21 U/L 13 - 60 U/L [place], [place] Lupus Anticoagulanton 2018 Antiphospholipid IgA 0.8 APU Normal <12 [facility] Comment on above: Result Comment: Reference Range: 12 - 15 Equivocal >15 Positive Performed By: #### C BC #### [facility] [address] [place] [address] Application Tester: Mario Anne MD Antiphospholipid IgG 3.0 GPU Normal <20 [facility] Comment on above: Result Comment: Reference Range: 20.0 - 29.9 Low Positive 30.0 - 79.9 Moderate Positive >79.9 High Positive Performed By: #### C BC #### [facility] [address] [place] [address] Application Tester: Mario Anne MD Antiphospholipid IgM 6.6 MPU Normal <20 [facility] Comment on above: Result Comment: Reference Range: 20.0 - 29.9 Low Positive 30.0 - 79.9 Moderate Positive >79.9 High Positive Performed By: #### C BC #### [facility] [address] [place] [address] Application Tester: Mario Anne MD Metabolic Panelon 11-28-2018 GFR/1.73 sq M predicted among non-blacks MDRD (S/P/Bld) [Vol rate/Area] [place], [place] Comment on above: Average GFR for 20-2 9 years old: 116 mL/min/1.73sq m Chronic Kidney Disease: <60 mL/min/1.73sq m Kidney failure: <15 mL/min/1.73sq m eGFR calculated using average adult body mass. Additional eGFR calculator available at: http://www.[employer]/multiple_crcl_2012.htm Stage 1: Some kidney damage normal GFR Stage 2: Mild kidney damage GFR 60-89 Stage 3: Moderate kidney damage GFR 30-59 Stage 4: Severe kidney damage GFR 15-29 Stage 5: Severe kidney damage GFR <15 ESRD - chronic treatment by dialysis or transplant Microscopic Urinalysison Amorphous, UA NOT REPORTED None [place], [place] Bacteria, UA NOT REPORTED None [place], [place] Casts UA NOT REPORTED /LPF [place] Crystals UA NOT REPORTED None /HPF [place] Epithelial Cells UA 2 TO 5 [place] Mucus, UA NOT REPORTED None [place] Other Observations UA NOT REPORTED NOT REQ. M [place], [place] RBC (U) [#/Vol] 5 TO 10 [place], [place] Renal Epithelial, Urine NOT REPORTED 0 /HPF [place], [place] Trichomonas, UA NOT REPORTED None [place] WBC, UA 10 TO 20 [place], [place] Yeast, UA NOT REPORTED None [place] - [place] Otheron 11-28-2018 Interpretation and review of laboratory results Abnormal [place], [place] PTon 11-28-2018 INR Coag (PPP) [Relative time] 1.3 {INR} High 0.9-1.2 [facility] Comment on above: Performed By: #### L IP, CMPX, PT, CDP, PTT ####[facility] [place] [address] lab Director: Mario Anne MD PT Coag (PPP) [Time] 13.4 s High 9.7-12.2 [facility] Comment on above: Performed By: #### L IP, CMPX, PT, CDP, PTT ####[facility] [place] [address] Lab Director: Mario Anne MD Parvovirus B19 Panelon 11-28 Parvovirus IgG B19 6.29 IV High <=0.89 [facility] Comment on above: Result Comment: (NOT [...] time. Performed By: #### C BC #### [facility] [address] [place] [address] Application Tester: Mario Anne MD Parvovirus IgM B19 0.15 IV Normal <=0.89 [facility] Comment on above: Result Comment: (NOT [...] levels of specific IgM antibodies. Performed by [facility], [address] [facility],[place] [id number] [email or web address], Fernando Valencia MD, Lab. Director Performed By: #### C BC #### [facility] [address] [place] [address] Application Tester: Mario Anne MD Protein C Antigenicon 2018 Protein [Mass/Vol] 83 % Normal 63-153 [facility] Comment on above: Result Comment: (NOT E) INTERPRETIVE INFORMATION: Protein C, Total Antigen Patients on warfarin may have decreased protein C values. Patients should be off warfarin therapy for two weeks for accurate measurement of protein C. Access complete set of age- and/or gender-specific reference intervals for this test in the [facility] Test Directory ([employer]). Performed by [facility], [address] [facility],[place] [id number] [email or web address], Fernando Valencia MD, Lab. Director Performed By: #### C BC #### [facility] [address] [place] [address] Application Tester: Mario Anne MD Protein S, Antigenicon 11-28 Protein [Mass/Vol] 71 % Normal 63-126 [facility] Comment on above: Result Comment: (NOT E) INTERPRETIVE INFORMATION: Protein S, Total Antigen Patients on warfarin may have decreased protein S values. Patients should be off warfarin therapy for two weeks for accurate measurement of protein S. Access complete set of age- and/or gender-specific reference intervals for this test in the [facility] Test Directory ([employer]). Performed by [facility], [address] [facility] [place] [address] [email or web address], Fernando Valencia MD, Lab. Director Performed By: #### C BC #### [facility] [address] [place] [address] Application Tester: Mario Anne MD Protime-INRon 11-28-2018 INR Coag (PPP) [Relative time] 1.3 {INR} High [place], [place] PT Coag (PPP) [Time] 13.4 s High [facility], [place] Rubella IgM, Abon 11-28-2018 Rubella IgM, Ab [...] the amount of antibody present. Performed by [facility], [address] [place] [address] [email or web address], Fernando Valencia MD, Lab. Director Performed By: #### C BC #### [facility] [address] [place] [address] [place] [address] Application Tester: Mario Anne MD Urinalysison 11-28-2018 Bilirubin Urine Negative NEGATIVE [facility] [place] Color, UA YELLOW YELLOW [facility], [place] Glucose, Ur Negative NEGATIVE [facility] [place], [place] Interpretation and review of laboratory results Abnormal [facility], [place] Ketones Ql (U) Negative NEGATIVE [facility] [place], [place] Leukocyte esterase Test strip Ql (U) SMALL Abnormal NEGATIVE [facility] [place], [place] Nitrite, Urine Negative NEGATIVE [facility] [place] pH, UA 6.5 [facility], [place] Protein (U) [Mass/Vol] TRACE Abnormal NEGATIVE [facility], [place] Specific [place], UA 1.020 [place], [place] Turbidity UA CLEAR CLEAR [place] Urinalysis Comments NOT REPORTED [facility], [place] Urine Hgb 3+ Abnormal NEGATIVE [facility], [place] Urobilinogen, Urine Normal Normal [place], [place] Urinalysis, Routineon 2018 Acetoacetic Acid,Ur Negative Normal [facility] Comment on above: Performed By: #### T YS #### [facility] [address] [place] [address] Application Tester: Mario Anne MD Bilirubin, SemiQt,Ur Negative Normal [facility] Comment on above: Performed By: #### T YS #### [facility] [address] [place] [address] Application Tester: Mario Anne MD Color (U) YELLOW Normal YEL [facility] Comment on above: Performed By: #### T YS #### [facility] [address] [place] [address] Application Tester: Mario Anne MD Glucose Ql (U) Negative Normal [facility] Comment on above: Performed By: #### T YS #### [facility] [address] [place] [address] [place] [address] Application Tester: Mario Anne MD Hemoglobin, Ur 3+ Abnormal NEG [facility] Comment on above: Performed By: #### T YS #### [facility] [address] [place] [address] Application Tester: Mario Anne MD Leukocyte esterase Test strip Ql (U) SMALL Abnormal NEG [facility] Comment on above: Performed By: #### T YS #### [facility] [address] [place] [address] Application Tester: Mario Anne MD Nitrite,Ur Negative Normal [facility] Comment on above: Performed By: #### T YS #### [facility] [address] [place], [place] [id number] Application Tester: Mario Anne MD pH (U) 6.5 [pH] Normal 5.0-9.0 [facility] Comment on above: Performed By: #### T YS #### [facility] [address] [place], [place] [id number] Application Tester: Mario Anne MD Protein Ql (U) TRACE Abnormal NEG [facility] Comment on above: Performed By: #### T YS #### [facility] [address] [place], [place] 1940283 Application Tester: Mario Anne MD Specific gravity (U) [Rel density] 1.020 Normal 1.010-1.020 [facility] Comment on above: Performed By: #### T YS #### [facility] [address] [place], [place] [id number] Application Tester: Mario Anne MD Turbidity CLEAR Normal CLEAR [facility] Comment on above: Performed By: #### T YS #### [facility] [address] [place], [place] [id number] Application Tester: Mario Anne MD Urobilinogen,Ur Normal Normal NORM [facility] Comment on above: Performed By: #### T YS #### [facility] [address] [place] [address] Application Tester: Mario Anne MD Comment NOT REPORTED Normal [facility] Comment on above: Performed By: #### T YS #### [facility] [address] [place], [place] [id number] Application Tester: Mario Anne MD Urinalysis,Microon 9 ----- Normal [facility] Comment on above: Performed By: #### T YS #### [facility] [address] [place], [place] [id number] Application Tester: Mario Anne MD Epithelial cells LM.HPF (Urine sed) [#/Area] 2 TO 5 Normal 0-25 [facility] Comment on above: Performed By: #### T YS #### [facility] [address] [place] [address] Application Tester: Mario Anne MD RBC (U) [#/Vol] 5 TO 10 Normal 0-2 [facility] Comment on above: Performed By: #### T YS #### [facility] [address] [place] [address] Application Tester: Mario Anne MD WBC (U) [#/Vol] 10 TO 20 Normal 0-5 [facility] Comment on above: Performed By: #### T YS #### [facility] [address] [place] [address] Application Tester: Mario Anne MD Amorphous sediment LM Ql (Urine sed) NOT REPORTED Normal [facility] Comment on above: Performed By: #### T YS #### [facility] [address] [place] [address] Application Tester: Mario Anne MD Bacteria LM.HPF (Urine sed) [#/Area] NOT REPORTED Normal [facility] Comment on above: Performed By: #### T YS #### [facility] [address] [place] [address] Application Tester: Mario Anne MD Casts LM.LPF (Urine sed) [#/Area] NOT REPORTED Normal [facility] Comment on above: Performed By: #### T YS #### [facility] [address] [place] [address] Application Tester: Mario Anne MD Crystals LM Nom (Urine sed) NOT REPORTED Normal [facility] Comment on above: Performed By: #### T YS #### [facility] [address] [place], [place] [id number] Application Tester: Mario Anne MD Epithelial, Renal NOT REPORTED Normal 0 [facility] Comment on above: Performed By: #### T YS #### [facility] [address] [place], [place] [id number] Application Tester: Mario Anne MD Mucus Strands NOT REPORTED Normal NONE [facility] Comment on above: Performed By: #### T YS #### [facility] [address] [place], [place] [id number] Application Tester: Mario Anne MD Other Observations NOT REPORTED Normal NREQ [facility] Comment on above: Performed By: #### T YS #### [facility] [address] [place], [place] [id number] Application Tester: Mario Anne MD Trichomonas NOT REPORTED Normal NONE [facility] Comment on above: Performed By: #### T YS #### [facility] [address] [place], [place] [id number] Application Tester: Mario Anne MD Yeast LM Ql (Urine sed) NOT REPORTED Normal [facility] Comment on above: Performed By: #### T YS #### [facility] [address] [place], [place] 4805383 Application Tester: Mario Anne MD Venous Blood Gaseson 019 HCO3 (Bld) [Moles/Vol] 20.5 mmol/L Low 24.0-30.0 [facility] Comment on above: Performed By: #### V BG ####[facility] [place] , [place] 9194783 Lab Director: Mario Anne MD Negative Base Excess 2.9 mmol/L High 0.0-2.0 [facility] Comment on above: Performed By: #### V BG ####[facility] [place] , [place] 8607883 Lab Director: Mario Anne MD Oxygen (Bld) [Partial pressure] 22.2 mm[Hg] Low 30.0-50.0 [facility] Comment on above: Performed By: #### V BG ####[facility] [place] , [place] 4042583 Lab Director: Mario Anne MD Oxygen saturation in Blood 40.2 % Low 60.0-85.0 [facility] Comment on above: Performed By: #### V BG ####[facility] [place] [address] Lab Director: Mario Anne MD pCO2 31.9 Low 39-55 [facility] Comment on above: Performed By: #### V BG ####[address] , [place] [id number] Lab Director: Mario Anne MD pH (Bld) 7.425 [pH] High 7.32-7.42 [facility] Comment on above: Performed By: #### V BG ####[address] [place] [address] Lab Director: Mario Anne MD Marco Test NOT REPORTED Normal [facility] Comment on above: Performed By: #### V BG ####[address] [place] [address] Lab Director: Mario Anne MD Body Temp. NOT REPORTED Normal [facility] Comment on above: Performed By: #### V BG ####[address] [place] [address] Lab Director: Mario Anne MD Carboxy Hgb NOT REPORTED Normal 0-5 [facility] Comment on above: Performed By: #### V BG ####[address] , [place] [id number] Lab Director: Mario Anne MD FIO2 NOT REPORTED Normal [facility] Comment on above: Performed By: #### V BG ####[place] [address] [place] [address] Lab Director: Mario Anne MD Methemoglobin NOT REPORTED Normal 0.0-1.9 [facility] Comment on above: Performed By: #### V BG ####[facility] [place] [address] Lab Director: Mario Anne MD Mode NOT REPORTED Normal [facility] Comment on above: Performed By: #### V BG ####[address] [place] [address] Lab Director: Mario Anne MD Notification Time NOT REPORTED Normal [facility] Comment on above: Performed By: #### V BG ####[address] [place] [address] Lab Director: Mario Anne MD Notification: NOT REPORTED Normal [facility] Comment on above: Performed By: #### V BG ####[address] [place] [address] Lab Director: Mario Anne MD O2 Device/Flow/% NOT REPORTED Normal [facility] Comment on above: Performed By: #### V BG ####[address] [place] [address] Lab Director: Mario Anne MD Oxyhemoglobin NOT REPORTED Normal 95.0-98.0 [facility] Comment on above: Performed By: #### V BG ####[address] [place] [address] Lab Director: Mario Anne MD Pco2 Adj'd for Temp. NOT REPORTED Normal 39.0-55.0 [facility] Comment on above: Performed By: #### V BG ####[address] , [place] [id number] Lab Director: Mario Anne MD PEEP/CPAP NOT REPORTED Normal [facility] Comment on above: Performed By: #### V BG ####[address] [place] [address] Lab Director: Mario Anne MD pH Adjst'd for Temp. NOT REPORTED Normal 7.320-7.420 M [facility] Comment on above: Performed By: #### V BG ####[address] [place] [address] Lab Director: Mario Anne MD pO2 Adj'd for Temp. NOT REPORTED Normal 30.0-50.0 [facility] Comment on above: Performed By: #### V BG ####[address] [place] [address] Lab Director: Mario Anne MD Positive Base Excess NOT REPORTED Normal 0.0-2.0 [facility] Comment on above: Performed By: #### V BG ####[address] [place] [address] Lab Director: Mario Anne MD PSV NOT REPORTED Normal [facility] Comment on above: Performed By: #### V BG ####[address] , [place] 2268783 Lab Director: Mario Anne MD Pt. Position NOT REPORTED Normal [facility] Comment on above: Performed By: #### V BG ####[address] [place] [address] Lab Director: Mario Anne MD Set Rate NOT REPORTED Normal [facility] Comment on above: Performed By: #### V BG ####[address] , [place] 416[address]83 Lab Director: Mario Anne MD Site Drawn NOT REPORTED Normal [facility] Comment on above: Performed By: #### V BG ####[address] , [place] [id number] lab Director: Mario Anne MD Text for Respiratory NOT REPORTED Normal [facility] Comment on above: Performed By: #### V BG ####[facility] [place], [place] 246[address]83 lab Director: Mario Anne MD Total Hb NOT REPORTED Normal 12.0-16.0 [facility] Comment on above: Performed By: #### V BG ####[facility] [place], [place] 8684083 lab Director: Mario Anne MD Total Rate NOT REPORTED Normal [facility] Comment on above: Performed By: #### V BG ####[facility] [place], [place] 6394283 lab Director: Mario Anne MD VT NOT REPORTED Normal [facility] Comment on above: Performed By: #### V BG ####[facility] [place], [place] 344[address]83 lab Director: Mario Anne MD XR CHEST [...] Matt Mayer MD 11/28/18 Final result Normal [facility] Cardiomegaly and congestion magnified by technique. No airspace consolidation. [facility]- [place], [facility] Incoming Radiant Results From [facility] - 11/28/2018 8:56 PM EDT EXAMINATION: ONE XRAY VIEW OF THE CHEST 11/28/2018 7:38 pm COMPARISON: None. HISTORY: ORDERING SYSTEM PROVIDED HISTORY: R/O PNA TECHNOLOGIST PROVIDED HISTORY: R/O PNA FINDINGS: Mild congestion, likely magnified by technique. No airspace consolidation, effusion, or pneumothorax. Borderline cardiomegaly. IMPRESSION: Cardiomegaly and congestion magnified by technique. No airspace consolidation. [place], [place] EXAMINATION: ONE XRA Y VIEW OF THE CHEST 11/28/2018 7:38 pm COMPARISON: None. HISTORY: ORDERING SYSTEM PROVIDED HISTORY: R/O PNA TECHNOLOGIST PROVIDED HISTORY: R/O PNA FINDINGS: Mild congestion, likely magnified by technique. No airspace consolidation, effusion, or pneumothorax. Borderline cardiomegaly. [place], [place] CMV Ab,IgGon 11-27-2018 CMV Ab,IgG 0.1 Normal <0.9 [facility] Comment on above: Result Comment: Reference [...] FA2, MATIAS, TOXOG, HSVM12, CMVG, FA5 #### [address] [id number] Application Tester: Geo Mar MD #### CBC, FIB #### [facility] [address] [place] [address] [place] [address] Application Tester: Mario Anne MD #### APROTS, APARVP, APROTC, ARUBGM #### [facility] [address] [place] [address] Application Tester: Fernando Valencia MD #### LUPPRO #### [address] [id number] Application Tester: Geo aMr MD [address] [place] [address] Application Tester: Mario Anne MD CMV Ab,IgMon 11-27-2018 CMV Ab,IgM 0.4 Normal <0.9 [facility] Comment on above: Result Comment: Reference [...] findings. Performed By: #### C BC #### [facility] [address] [place] [address] [address] [place] [id number] Application Tester: Mario Anne MD CBCon 11-25-2018 Erythrocyte distribution width (RBC) [Ratio] 13.2 % Normal 11.8-14.4 [facility] Comment on above: Performed By: #### T OXOM, HSVG12, CMVM, FA2, MATIAS, TOXOG, HSVM12, CMVG, FA5 #### [facility] [address] [place] [address] [id number] Application Tester: Geo Mar MD #### CBC, FIB #### [address] [place] [address] Application Tester: Mario Anne MD #### APROTS, APARVP, APROTC, ARUBGM #### [facility] [address] [place] [address] Application Tester: Fernando Valencia MD #### LUPPRO #### [facility] [address] [place] [address] [id number] Application Tester: Geo Mar MD [address] [place] [address] Application Tester: Mario Anne MD Hematocrit (Bld) [Volume fraction] 30.4 % Low 36.3-47.1 [facility] Comment on above: Performed By: #### T OXOM, HSVG12, CMVM, FA2, MATIAS, TOXOG, HSVM12, CMVG, FA5 #### [facility] [address] [place] [id number] Application Tester: Geo Mar MD #### CBC, FIB #### [address] [place], [place] [id number] Application Tester: Mario Anne MD #### APROTS, APARVP, APROTC, ARUBGM #### [facility] [address] [place] [address] Application Tester: Fernando Valencia MD #### LUPPRO #### [address] [id number] Application Tester: Geo Mar MD [address] [place] [id number] Application Tester: Mario Anne MD Hemoglobin (Bld) [Mass/Vol] 9.7 g/dL Low 11.9-15.1 [facility] Comment on above: Performed By: #### T OXOM, HSVG12, CMVM, FA2, MATIAS, TOXOG, HSVM12, CMVG, FA5 #### [address] [address] Application Tester: Geo Mar MD #### CBC, FIB #### [address] [place], [place] [id number] Application Tester: Mario Anne MD #### APROTS, APARVP, APROTC, ARUBGM #### [facility] [address] [place] [address] Application Tester: Fernando Valencia MD #### LUPPRO #### [address] [address] Application Tester: Geo Mar MD [address] [place] [address] Application Tester: Mario Anne MD MCH (RBC) [Entitic mass] 28.2 pg Normal 25.2-33.5 [facility] Comment on above: Performed By: #### T OXOM, HSVG12, CMVM, FA2, MATIAS, TOXOG, HSVM12, CMVG, FA5 #### [address] [id number] Application Tester: Geo Mar MD #### CBC, FIB #### [address] [place] [id number] Application Tester: Mario Anne MD #### APROTS, APARVP, APROTC, ARUBGM #### [facility] [address] [place], [place] [id number] Application Tester: Fernando aVlencia MD #### LUPPRO #### [address] [address] Application Tester: Geo Mar MD [address] [place] [id number] Application Tester: Mario Anne MD MCHC (RBC) [Mass/Vol] 31.9 g/dL Normal 28.4-34.8 [facility] Comment on above: Performed By: #### T OXOM, HSVG12, CMVM, FA2, MATIAS, TOXOG, HSVM12, CMVG, FA5 #### [address] [address] Application Tester: Geo Mar MD #### CBC, FIB #### [address] [place] [address] Application Tester: Mario Anne MD #### APROTS, APARVP, APROTC, ARUBGM #### [facility] [address] [place], [place] [id number] Application Tester: Fernando Valencia MD #### LUPPRO #### [address] [address] Application Tester: Geo Mar MD [address] [place] [id number] Application Tester: Mario Anne MD MCV (RBC) [Entitic vol] 88.4 fL Normal 82.6-102.9 [facility] Comment on above: Performed By: #### T OXOM, HSVG12, CMVM, FA2, MATIAS, TOXOG, HSVM12, CMVG, FA5 #### [address] [address] Application Tester: Geo Mar MD #### CBC, FIB #### [address] [place] [id number] Application Tester: Mario Anne MD #### APROTS, APARVP, APROTC, ARUBGM #### [facility] [address] [place] [address] Application Tester: Fernando Valencia MD #### LUPPRO #### [address] [address] Application Tester: Geo Mar MD [address] [place] [phone] Application Tester: Mario Anne MD NRBC Automated 0.0 per 100 WBC Normal 0.0 [facility] Comment on above: Performed By: #### T OXOM, HSVG12, CMVM, FA2, MATIAS, TOXOG, HSVM12, CMVG, FA5 #### [address] [address] Application Tester: Geo Mar MD #### CBC, FIB #### [address] [place] [address] Application Tester: Mario Anne MD #### APROTS, APARVP, APROTC, ARUBGM #### [facility] [address] [place] [address] Application Tester: Fernando Valencia MD #### LUPPRO #### [address] [address] Application Tester: Geo Mar MD [address] [place] [phone] Application Tester: Mario Anne MD Platelet mean volume (Bld) [Entitic vol] 10.4 fL Normal 8.1-13.5 [facility] Comment on above: Performed By: #### T OXOM, HSVG12, CMVM, FA2, MATIAS, TOXOG, HSVM12, CMVG, FA5 #### [address] [address] Application Tester: Geo Mar MD #### CBC, FIB #### [address] [place] [phone] Application Tester: Mario Anne MD #### APROTS, APARVP, APROTC, ARUBGM #### [facility] [address] [place] [address] Application Tester: Fernando Valencia MD #### LUPPRO #### [address] [address] Application Tester: Geo Mar MD [address] [place] [phone] Application Tester: Mario Anne MD Platelets (Bld) [#/Vol] 247 10*3/uL Normal 138-453 [facility] Comment on above: Performed By: #### T OXOM, HSVG12, CMVM, FA2, MATIAS, TOXOG, HSVM12, CMVG, FA5 #### [address] [address] Application Tester: Geo Mar MD #### CBC, FIB #### [address] [place], [place] [id number] Application Tester: Mario Anne MD #### APROTS, APARVP, APROTC, ARUBGM #### [facility] [address] [place] [address] Application Tester: Fernando Valencia MD #### LUPPRO #### [address] [address] Application Tester: Geo Mar MD [address] [place], [place] 2700683 Application Tester: Mario Anne MD RBC (Bld) [#/Vol] 3.44 10*6/uL Low 3.95-5.11 [facility] Comment on above: Performed By: #### T OXOM, HSVG12, CMVM, FA2, MATIAS, TOXOG, HSVM12, CMVG, FA5 #### [address] [address] Application Tester: Geo Mar MD #### CBC, FIB #### [address] [place] [address] Application Tester: Mario Anne MD #### APROTS, APARVP, APROTC, ARUBGM #### [facility] [address] [place], [place] [id number] Application Tester: Fernando Valencia MD #### LUPPRO #### [address] [address] Application Tester: Geo Mar MD [address] [place], [place] [id number] Application Tester: Mario Anne MD WBC (Bld) [#/Vol] 13.1 10*3/uL High 3.5-11.3 [facility] Comment on above: Performed By: #### T OXOM, HSVG12, CMVM, FA2, MATIAS, TOXOG, HSVM12, CMVG, FA5 #### [address] [place] [address] Application Tester: Geo Mar MD #### CBC, FIB #### [address] [place] [phone] Application Tester: Mario Anne MD #### APROTS, APARVP, APROTC, ARUBGM #### [facility] [address] [place] [address] Application Tester: Fernando Valencia MD #### LUPPRO #### [address] [id number] Application Tester: Geo Mar MD [address] [place] [address] Application Tester: Mario Anne MD Drug Scr, Abuse, Uron 2018 Amphetamine(s),Ur Negative Normal NEG [facility] Comment on above: Performed By: #### D AU ####[address] [place] [phone] [facility] Director: Mario Anne MD Barbiturate(s),Ur Negative Normal NEG [facility] Comment on above: Performed By: #### D AU ####[address] , [facility] Director: Mario Anne MD Base excess Calc (Bld) [Moles/Vol] Negative Normal [facility] Comment on above: Performed By: #### D AU ####[address] [place] [phone] [facility] Director: Mario Anne MD Benzodiazepine(s) Negative Normal NEG [facility] Comment on above: Performed By: #### D AU ####[address] [place] [phone] Lab Director: Mario Anne MD Buprenorphrine, Ur Negative Normal NEG [facility] Comment on above: Performed By: #### D AU ####[address] , [place] [id number] Lab Director: Mario Anne MD Cannabinoid(s),Ur Negative Normal NEG [facility] Comment on above: Performed By: #### D AU ####[address] , [place] 0197983 Lab Director: Mario Anne MD Methadone Ql (U) Negative Normal NEG [facility] Comment on above: Performed By: #### D AU ####[address] , [place] [phone] Lab Director: Mario Anne MD Methamphetamine, Ur Negative Normal NEG [facility] Comment on above: Performed By: #### D AU ####[address] [place] [address] Lab Director: Mario Anne MD Opiate(s), Ur Negative Normal [facility] Comment on above: Performed By: #### D AU ####[address] [place] [address] Lab Director: Mario Anne MD Oxycodone, Urine Negative Normal NEG [facility] Comment on above: Performed By: #### D AU ####[address] [place] [address] Lab Director: Mario Anne MD Phencyclidine, Ur Negative Normal [facility] Comment on above: Performed By: #### D AU ####[address] [place] [address] Lab Director: Mario Anne MD Propoxyphene,Urine Negative Normal [facility] Comment on above: Performed By: #### D AU ####[facility] [place], [place] 6324983 Lab Director: Mario Anne MD Tricyclic antidepressants Screen Ql (U) Negative Normal NEG [facility] Comment on above: Result Comment: Drug screen results are to be used for medical purposes only. All positive results are unconfirmed. Testing for employment or legal uses should be sent to a reference laboratory for confirmation. Performed By: #### D AU ####[address] [place] [address] Lab Director: Mario Anne MD Interpretive Info NOT REPORTED Normal [facility] Comment on above: Performed By: #### D AU ####[address] [place], [place] 6186283 Lab Director: Mario Anne MD MDMA, Urine NOT REPORTED Normal NEG [facility] Comment on above: Performed By: #### D AU ####[address] [place], [place] 6234083 Lab Director: Mario Anne MD Fibrinogenon 11-25-2018 Fibrinogen 465 mg/dL High 185-451 [facility] Comment on above: Performed By: #### T OXOM, HSVG12, CMVM, FA2, MATIAS, TOXOG, HSVM12, CMVG, FA5 #### [address] [id number] Application Tester: Geo Mar MD #### CBC, FIB #### [address] [place], [place] 9753883 Application Tester: Mario Anne MD #### APROTS, APARVP, APROTC, ARUBGM #### [facility] [address] [place] [address] Application Tester: Fernando Valencia MD #### LUPPRO #### [address] [id number] Application Tester: Geo Mar MD [facility] [address] [place], [place] [id number] Application Tester: Mario Anne MD Hgb/Hcton 11-25-2018 Hematocrit (Bld) [Volume fraction] 30.4 % Low 36.3-47.1 [facility] Comment on above: Performed By: #### H H ####[facility] [id number] Lab Director: Mario Anne MD Hemoglobin (Bld) [Mass/Vol] 9.8 g/dL Low 11.9-15.1 [facility] Comment on above: Performed By: #### H H ####[address] , [place] [id number] [facility] Director: Mario Anne MD Lupus Anticoagulanton 2018 aPTT Coag (Bld) [Time] 27.1 s Normal 23.2-34.4 [facility] Comment on above: Performed By: #### C BC #### [facility] [address] [place], [place] 2491583 Application Tester: Mario Anne MD INR Coag (PPP) [Relative time] 0.9 {INR} Normal 0.9-1.2 [facility] Comment on above: Performed By: #### C BC #### [facility] [address] [place], [place] [phone] Application Tester: Mario Anne MD PT Coag (PPP) [Time] 9.7 s Normal 9.7-12.2 [facility] Comment on above: Performed By: #### C BC #### [facility] [address] [place], [place] 6888483 Application Tester: Mario Anne MD Lupus Anticoagulant NOT REPORTED Normal [facility] Comment on above: Performed By: #### C BC #### [facility] [address] [place] [address] Application Tester: Mario Anne MD Rubella Ab, IgGon 11-25-2018 Rubella Ab, IgG 27.5 IU/mL Normal [facility] Comment on above: Result Comment: REFERENCE RANGE: <5.0 NON-REACTIVE (non-immune) 5.0 TO 9.9 EQUIVOCAL >=10.0 REACTIVE (immune) Performed By: #### T OXOM, HSVG12, CMVM, FA2, MATIAS, TOXOG, HSVM12, CMVG, FA5 #### [address] [id number] Application Tester: Geo Mar MD #### CBC, FIB #### [address] [place] [address] Application Tester: Mario Anne MD #### APROTS, APARVP, APROTC, ARUBGM #### [facility] [address] [place] [address] Application Tester: Fernando Valencia MD #### LUPPRO #### [address] [address] Application Tester: Geo Mar MD [address] [place] [address] Application Tester: Mario Anne MD Surgical Pathologyon 019 Surgical Pathology (NOTE) [id number] [facility] CONSULTING PATHOLOGISTS [facility] ANATOMIC PATHOLOGY [address] [place] [phone] SURGICAL PATHOLOGY CONSULTATION Patient Name: DEION [facility] Rec: [id number] Path Number: [id number] Collected: 11/25/2018 Received: 11/29/2018 Reported: 11/30/2018 16:37 -- Diagnosis -- PLACENTA, 21 WEEKS: SMALL PLACENTA (230 G) WITH SEVERE ACUTE CHORIOAMNIONITIS AND ACUTE FUNISITIS. Harvey Hanna Electronically Signed Out ajb/11/30/2018 Clinical Information Operative Findings: PLACENTA Source of Specimen 1: PLACENTA Gross Description DEION TOMY, PLACENTA Placenta with attached membranes and umbilical [...] villous capillaries: Rare Other: Few microcalcifications Normal [facility] Comment on above: Performed By: #### T OXOM, HSVG12, CMVM, FA2, MATIAS, TOXOG, HSVM12, CMVG, FA5 #### [facility] [address] [place] [address] [id number] Application Tester: Geo Mar MD #### CBC, FIB #### [address] [place] [address] Application Tester: Mario Anne MD #### APROTS, APARVP, APROTC, ARUBGM #### [facility] [address] [place] [address] Application Tester: Fernando Valencia MD #### LUPPRO #### [address] [id number] Application Tester: Geo Mar MD [address] [place], [place] [id number] Application Tester: Mario Anne MD Thyroid Stim. Horm.on 2018 TSH Qn 1.78 m[IU]/L Normal 0.30-5.00 [facility] Comment on above: Performed By: #### T SH ####[address] , [place] 5019083 Lab Director: Mario Anne MD Toxoplasma Ab,IgGon 11-26-19 19 Toxoplasma Ab,IgG <0.5 Normal [facility] Comment on above: Result Comment: REFERENCE [...] FA2, MATIAS, TOXOG, HSVM12, CMVG, FA5 #### [facility] [address] [place] [address] [id number] Application Tester: Geo Mar MD #### CBC, FIB #### [address] [place] [phone] Application Tester: Mario Anne MD #### APROTS, APARVP, APROTC, ARUBGM #### [facility] [address] [place] [address] Application Tester: Fernando Valencia MD #### LUPPRO #### [address] [address] Application Tester: Geo Mar MD [address] [place], [place] 5192383 Application Tester: Mario Anne MD Toxoplasma Ab,IgMon 11-26-19 19 Toxoplasma Ab,IgM 0.55 Index Normal [facility] Comment on above: Result Comment: REFERENCE RANGE: <0.90 NON-REACTIVE 0.90 TO 1.00 INDETERMINANT >=1.10 REACTIVE Performed By: #### T OXOM, HSVG12, CMVM, FA2, MATIAS, TOXOG, HSVM12, CMVG, FA5 #### [address] [place], [place] 2256608 Application Tester: Geo Mar MD #### CBC, FIB #### [address] [place] [address] Application Tester: Mario Anne MD #### APROTS, APARVP, APROTC, ARUBGM #### [facility] [address] [place] [address] Application Tester: Fernando Valencia MD #### LUPPRO #### [address] [id number] Application Tester: Geo Mar MD [address] [place] [address] Application Tester: Mario Anne MD Type + Screenon 11-25-2018 Type + Screen Sample Expiration 11/28/2018 Arm Band Number [id number] ABO/Rh(D) O POSITIVE Antibody Screen NEGATIVE Normal [facility] Comment on above: Performed By: #### T YS ####[address] [place] [address] Lab Director: Mario Anne MD CBCon 11-24-2018 Erythrocyte distribution width (RBC) [Ratio] 13.2 % Normal 11.8-14.4 [facility] Comment on above: Performed By: #### C BC #### [address] [place] [address] Application Tester: Mario Anne MD Hematocrit (Bld) [Volume fraction] 31.6 % Low 36.3-47.1 [facility] Comment on above: Performed By: #### C BC #### [facility] [address] [place] [address] Application Tester: Mario Anne MD Hemoglobin (Bld) [Mass/Vol] 10.1 g/dL Low 11.9-15.1 [facility] Comment on above: Performed By: #### C BC #### [address] [place] [address] Application Tester: Mario Anne MD MCH (RBC) [Entitic mass] 28.1 pg Normal 25.2-33.5 [facility] Comment on above: Performed By: #### C BC #### [address] [place] [address] Application Tester: Mario Anne MD MCHC (RBC) [Mass/Vol] 32.0 g/dL Normal 28.4-34.8 [facility] Comment on above: Performed By: #### C BC #### [address] [place] [address] Application Tester: Mario Anne MD MCV (RBC) [Entitic vol] 88.0 fL Normal 82.6-102.9 [facility] Comment on above: Performed By: #### C BC #### [address] [place] [address] Application Tester: Mario Anne MD NRBC Automated 0.0 per 100 WBC Normal 0.0 [facility] Comment on above: Performed By: #### C BC #### [address] [place], [place] [phone] Application Tester: Mario Anne MD Platelet mean volume (Bld) [Entitic vol] 10.1 fL Normal 8.1-13.5 [facility] Comment on above: Performed By: #### C BC #### [address] [place] [address] Application Tester: Mario Anne MD Platelets (Bld) [#/Vol] 246 10*3/uL Normal 138-453 [facility] Comment on above: Performed By: #### C BC #### [facility] [address] [place], [place] [phone] Application Tester: Mario Anne MD RBC (Bld) [#/Vol] 3.59 10*6/uL Low 3.95-5.11 [facility] Comment on above: Performed By: #### C BC #### [facility] [address] [place], [place] 0678383 Application Tester: Mario Anne MD WBC (Bld) [#/Vol] 10.7 10*3/uL Normal 3.5-11.3 [facility] Comment on above: Performed By: #### C BC #### [facility] [address] [place], [place] [phone] Application Tester: Mario Anne MD Type + Screenon 11-24-2018 Type + Screen Sample Expiration 11/27/2018 Arm Band Number [id number] ABO/Rh(D) O POSITIVE Antibody Screen NEGATIVE Normal [facility] Comment on above: Performed By: #### T YS #### [facility] [address] [place], [place] [phone] Application Tester: Mario Anne MD US OB 14 PLUS [...] Luis Adam MD 11/24/18 Final result Normal [facility] US OB TRANSVAGINALon 019 US OB TRANSVAGINAL EXAMINATION: FIRST TRIMESTER OBSTETRIC [...] Yolk Sac: Not visualized Pole: Single pole [place] Rump Length: 7.11 cm Heart Rate: 145 [...] Grzegorz Vicente MD 09/30/18 Final result Normal [facility] ABO/Rhon 09-17-2018 ABO and Rh group Nom (Bld) O Positive [facility] HCG (QUANTITATIVE)on 019 Beta HCG ( test) Ql (U) Males and non females: <5 mIU/mL Females during : 3-4 weeks 9-130 mIU/mL 4-5 weeks 75-2600 mIU/mL 5-6 weeks 850-20,800 mIU/mL 6-7 weeks 4000-100,200 mIU/mL 7-12 weeks 11,500-289,000 mIU/mL 12-16 weeks 18,300-137,000 mIU/mL 16-29 weeks 1,400-53,000 mIU/mL 29-41 weeks 940-60,000 mIU/mL [facility] [place] [address] m[IU]/mL High [facility] Interpretation and review of laboratory results Abnormal [facility] Vital Signs Date Time Vital Sign Value Performing Clinician Facility 11-30-2018 08:46-0400 Body Temperature 97.9 [degF] [place] 11-30-2018 08:46-0400 BP Diastolic 85 mm[Hg] [place] 11-30-2018 08:46-0400 BP Systolic 133 mm[Hg] [place] 11-30-2018 08:46-0400 Pulse (Heart Rate) 80 /min [place], [place] 11-30-2018 08:46-0400 Pulse Oximetry 99 % [place] 11-30-2018 08:46-0400 Respiratory Rate 18 /min [place] 11-30-2018 04:30-0400 BMI (Body Mass Index) 54.64 kg/m2 [place] 11-30-2018 04:30-0400 Body weight 167.83 kg [place] 11-29-2018 08:35-0400 Height 175.3 cm [place] 11-28-2018 21:40-0400 Respiratory rate NOT REPORTED [facility] Comment on above: Performed By: #### VBG ####[facility] [place] [address] lab Director: Mario Anne MD 11-28-2018 19:51-0400 Respiratory rate NOT REPORTED Art Ugarte [facility] [place] 09-17-2018 00:04-0400 BMI (Body Mass Index) 54.93 kg/m2 [facility] 09-17-2018 00:04-0400 Body Temperature 98.29 [degF] [facility] 09-17-2018 00:04-0400 Body weight 168.74 kg [facility] 09-17-2018 00:04-0400 BP Diastolic 91 mm[Hg] [facility] 09-17-2018 00:04-0400 BP Systolic 170 mm[Hg] [facility] 09-17-2018 00:04-0400 Height 175.3 cm [facility] 09-17-2018 00:04-0400 Pulse (Heart Rate) 95 /min [facility] 09-17-2018 00:04-0400 Pulse Oximetry 98 % [facility] 09-17-2018 00:04-0400 Respiratory Rate 16 /min [facility] Encounters Encounter Date Encounter Type Care Provider Facility Start: 08-08-2023 End: 08-09-2023 ambulatory Wolf Mendosa MD Facility:[facility] Start: 07-25-2023 End: 07-26-2023 ambulatory Wolf Mendosa MD Facility:[facility] Start: 07-11-2023 End: 07-12-2023 ambulatory Wolf Mendosa MD Facility:[facility] Start: 06-23-2022 ambulatory MIKE HOY Facility:[facility] Start: 06-16-2022 End: 07-15-2022 ambulatory [facility] Facility:[facility] Start: 03-18-2022 End: 03-18-2022 ambulatory MIKE HOY Facility:[facility] Start: 12-18-2021 End: 12-18-2021 ambulatory MIKE HOY Facility:[facility] Start: 12-04-2021 End: 12-05-2021 ambulatory MIKE HOY Facility:[facility] Start: 11-25-2021 End: 11-26-2021 ambulatory MIKE HOY Facility:[facility] Start: 09-19-2021 End: 09-19-[address] ÁNGEL BABIN Facility:[facility] Start: 07-30-2021 End: 07-30-2021 ambulatory [facility] Facility:[facility] Start: 04-29-2021 End: 04-30-2021 ambulatory [facility] Start: 04-29-2021 End: 04-29-2021 Subsequent hospital visit by physician Mike Osullivan MD Work Phone: [facility] Comment on above: Abnormal menstrual p eriods Start: 04-08-2020 End: 04-08-2020 Subsequent hospital visit by physician Mike SANTILLAN [place] [facility] Start: 11-28-2018 End: 11-30-2018 Evaluation and management of inpatient [facility] Start: 11-28-2018 End: 11-30-2018 Evaluation and management of inpatient Art Ugarte Work Phone: [facility] Comment on above: Sepsis, due to unspe cified organism (HCC) (Primary Dx) Start: 11-24-2018 End: 11-25-2018 Evaluation and management of inpatient [facility] Start: 09-30-2018 End: 09-30-2018 Patient encounter procedure [facility] Start: 09-17-2018 End: 09-17-2018 [facility] Start: 09-17-2018 End: 09-17-2018 [facility] Work Phone: [facility] Comment on above: Vaginal bleeding in (Primary Dx) Procedures Date Procedure Procedure Detail Performing Clinician Start: 04-29-2021 Gonadotropin chorionic quantitative Vadim Joyce 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 CARE AIDE - [employer]ED [employer] TE[employer]ER Work Phone: Start: 04-08-2020 Assay of insulin total Mike Gabriel [facility] Work Phone: Start: 04-08-2020 Assay of thyroid stimulating hormone tsh Mike [facility] Work Phone: Start: 04-08-2020 Assay of thyroxine [...] Start: 11-30-2018 Blood count complete automated MIKE MullinsY Start: 11-30-2018 Drug screen quantitative vancomycin MIKE OSULLIVAN Start: 11-30-2018 Blood count complete auto&auto difrntl wbc Marciano Griffin Work Phone: Start: 11-30-2018 Blood count complete automated Marciano Craig Work Phone: Start: 11-30-2018 Drug screen quantitative [...] complete auto&auto difrntl wbc MIKE HOY Start: 11-29-2018 Blood count complete automated MIKE H OY Start: 11-29-2018 Assay of magnesium Brenton Horton Work Phone: Start: 11-29-2018 Blood count complete auto&auto difrntl wbc Brenton Horton Work Phone: Start: 11-29-2018 Blood count complete automated Brenton Horton Work Phone: Start: 11-29-2018 DIET GENERAL MIKE HOY Start: 11-29-2018 FULL CODE MIKE HOY Start: 11-29-2018 INITIATE OXYGEN THERAPY PROTOCOL MIKE HOY Start: 11-29-2018 IP CONSULT TO CASE MANAGEMENT MIKE HO Y Start: 11-29-2018 IP CONSULT TO FINGER COBBLER MIKE HOY Start: 11-29-2018 NOTIFY PHYSICIAN (SPECIFY) MIKE HOY Start: 11-29-2018 PHARMACY TO DOSE VANCOMYCIN MIKE HOY Start: 11-29-2018 PULSE OXIMETRY SPOT CHECK MIKE HOY Start: 11-29-2018 REASON FOR NO MECHANICAL VTE PROPHYLAXIS MIKE HOY Start: 11-29-2018 TOBACCO CESSATION EDUCATION MIKE HOY Start: 11-29-2018 VITAL SIGNS MIKE HOY Start: 11-29-2018 PATIENT STATUS (FROM ED OR OR/PROCEDURAL) MIKE HOY Start: 11-29-2018 Us pelvic nonobstetric real-time image complete MIKE HOY Start: 11-28-2018 PULSE OXIMETRY SPOT CHECK Brenton medeiros Work Phone: Start: 11-28-2018 Culture bacterial quanttative colony count urine MIKE HOY Start: 11-28-2018 Urinalysis microscopic only MIKE HOY Start: 11-28-2018 Urnls dip stick/tablet rgnt auto w/o microscopy MIKE HOY Start: 11-28-2018 PHARMACY TO DOSE VANCOMYCIN MIKE HOY Start: 11-28-2018 Us pelvic nonobstetric real-time image complete Art Bertram Ugarte Work Phone: Start: 11-28-2018 Radiologic exam chest [...] Start: 11-28-2018 Urinalysis microscopic only Art A Orquideasa in Work Phone: Start: 11-28-2018 Urnls dip stick/tablet rgnt auto w/o microscopy Art A Torito Work Phone: Start: 11-28-2018 Assay of lactate MIKE OSULLIVAN Start: 11-28-2018 Culture bacterial blood aerobic w/id isolates MIKE OSULLIVAN Start: 11-28-2018 Radiologic exam chest single view Art A Torito Work Phone: Start: 11-28-2018 Ct abdomen & pelvis w/o contrast material Art A Torito Work Phone: Start: 11-28-2018 Ecg routine ecg w/least 12 lds w/i&r Art A Torito Work Phone: Start: 11-28-2018 Assay of lipase Art A Torito Work Phone: Start: 11-28-2018 Blood count complete auto&auto difrntl wbc Art A Torito Work Phone: Start: 11-28-2018 Prothrombin time Art A Torito Work Phone: Start: 11-28-2018 Thromboplastin time partial plasma/whole blood Art A Torito Work Phone: Start: 11-28-2018 Blood gases any combination ph pco2 po2 co2 hco3 Art A Torito Work Phone: Start: 11-28-2018 Culture bacterial blood aerobic w/id isolates Art A Torito Work Phone: Start: 11-28-2018 LACTATE, SEPSIS Art A Torito Work Phone: Start: 11-25-2018 HEMOGLOBIN AND HEMATOCRIT, BLOOD MIKE HOY Start: 11-25-2018 Drug screen class list a MIKE HOY Start: 11-25-2018 DISCHARGE PATIENT MIKE HOY Start: 11-25-2018 INITIATE OXYGEN THERAPY PROTOCOL MIKE HOY Start: 11-25-2018 Antibody cytomegalovirus cmv MIKE HOY [...] Choriogonadotropin [Units/volume] in Serum or Plasma Jennifer Vivar Work Phone: Start: 08-18-2018 C. TRACHOMATIS, [...] 11-19-2020 Influenza vaccination Flu vaccine (# 1) [facility] Start: 11-20-2019 Influenza [facility] [place] Start: 11-19-2018 Influenza vaccination Flu vaccine (# 1) [place], [place] Start: 2014 Cervical cancer screen Cervical canc er screen [place], [place] Start: 2014 Screening for malign ant neoplasm of cervix [facility] Start: 2012 DTaP/Tdap/Td vaccine (1 - Tdap) DTaP/Tdap/Td vaccine (1 - Tdap) [facility] Start: 2008 HIV screen HIV screen [place], [place] Start: 2008 HIV screening HIV screen [facility] Start: 2008 HPV vaccine (1 - Fem killian 3-dose series) HPV vaccine (1 - Female 3-dose series) [place], [place] Start: 2006 Varicella Vaccine (1 of 2 - 13+ 2-dose series) Varicella Vaccine (1 of 2 - 13+ 2-dose series) [place], [place] Start: 2005 Depression Screen Depression Screen [facility] Start: 1999 Pneumococcal 0-64 ye ars Vaccine (1 of 1 - PPSV23) Pneumococcal 0-64 years Vaccine (1 of 1 - PPSV23) [place], [place] Start: 1999 Pneumococcal 0-64 ye ars Vaccine (1 of 2 - PPSV23) Pneumococcal 0-64 years Vaccine (1 of 2 - PPSV23) [facility] Start: 1998 COVID-19 Vaccine (1) COVID-19 Vaccin e (1) [facility] Start: 1994 Varicella vaccine (1 of 2 - 2-dose childhood series) Varicella vaccine (1 of 2 - 2-dose childhood series) [facility] Start: 1993 Hepatitis C screening Hepatitis C sc reen [facility] Bacteria identified Cx Nom (U) Urine Culture Microbiology STAT 11/28/2018 9:39 PM EDT [place], [place] CBC CBC Lab Routine Daily until discontinued starting 11/30/2018, 1 completed [place] Comment on above: Daily until disconti nued starting 11/30/2018, 1 completed Comprehensive Metabo lic Panel w/ Reflex to MG Comprehensive Metabolic Panel w/ Reflex to MG Lab Routine Daily until discontinued starting 11/30/2018, 1 completed [place] Comment on above: Daily until disconti nued starting 11/30/2018, 1 completed Culture blood #1 Culture blood # 1 Microbiology STAT 11/28/2018 7:30 PM EDT [place] Culture Blood #2 Culture Blood # 2 Microbiology Routine 11/29/2018 8:20 AM EDT [place] EKG 12 lead EKG 12 lead ECG STAT 11/28/2018 7:50 PM EDT [place] Initiate Oxygen Ther apy Protocol Initiate Oxygen Therapy Protocol Respiratory Care Routine Daily until discontinued starting 11/29/2018 [place] Comment on above: Daily until disconti nued starting 11/29/2018 End: 12-02-2018 Vancomycin, trough Vancomycin, trough Lab Timed One Time for 1 Occurrences starting 12/02/2018 until 12/02/2018 [place], [place] Comment on above: One Time for 1 Occur rences starting 12/02/2018 until 12/02/2018 Payers Date Payer Category Payer Private Health Insurance 2018 Unknown [id number] 2018 Unknown xxxxxxxxxxxx [id number] 2014 Unknown [id number] 1993 Unknown [id number] 2.16.8 [id number] 1993 Unknown [id number] 2.16.8 [id number] 1993 Unknown [id number] 2.16.8 [id number] 1993 Unknown [id number] 2.16.8 40.1.851745.3.579.2.175 1993 Unknown [id number] 2.16.84 0.1.415536.3.579.2.593 1993 Unknown [id number] 2.16.84 0.1.578185.3.579.2.593 1993 Unknown [id number] 2.16.84 0.1.974499.3.579.2.593 1993 Unknown [id number] 2.16.84 0.1.188918.3.579.2.593 1993 Unknown [id number] 2.16.84 0.1.865449.3.579.2.593 1993 Unknown [id number] 2.16.84 0.1.456312.3.579.2.593 1993 Unknown [id number] 2.16.84 0.1.740331.3.579.2.593 1993 Unknown [id number] 2.16.84 0.1.628708.3.579.2.593 1993 Unknown [id number] 2.16. 840.1.902409.3.579.2.196 1993 Unknown [id number] 2.16. [id number] 1993 Unknown [id number] 2.16. [id number] 1961 Medicaid [id number] 1961 Self-pay [id number] 1961 Unknown [id number] Social History Date Type Detail Facility Start: 11-25-2018 End: 11-28-2018 Tobacco smoking status IDIS Current every day smoker [facility] Start: 11-28-[address] [facility] [place] [place] Start: 1995 Sex Assigned At Not on file [facility] Start: 11-25-2018 End: 11-28-2018 [facility] and exposure [facility] Start: 11-28-2018 Alcohol intake [place]finding[place] Start: 09-17-2018 Cigarettes smoked current (pack per day) - Reported [facility] Start: 09-17-2018 History SDOH Alcohol Frequency 1 [facility] Evaluation note Note Date & Type Note Facility Evaluation note Diagnosis Abnormal menstrual periods documented in this encounter [employer] Phone: Summary Purpose Family History No Family History Records FoundNo Family History Records FoundNo Family History Records FoundNo Family History Records FoundNo Family History Records FoundNo Family History Records Found Advance Directives No Advanced Directives Records FoundDocuments on File Type Date Recorded Patient Fine Dining Server Expl anation Advance Directives and Living Will Power of Jamb Cutter Latest Code Status on File Code Status Date Activated Date Inactivated Comments Full Code 11/28/2018 11:54 PM Full Code 11/25/2018 5:09 AM 11/25/2018 10:15 PM Full Code 11/25/2018 3:30 AM 11/25/2018 5:09 AM Documents on File Type Date Recorded Patient Fine Dining Server Expl anation ACP-Advance Directive ACP-Power of Jamb Cutter Latest Code Status on File Code Status Date Activated Date Inactivated Comments Full Code 11/28/2018 11:54 PM 11/30/2018 4:25 PM Documents on File Type Date Recorded Patient Fine Dining Server Expl anation Advance Directives and Livin g Will 09/17/2018 12:02 AM Discharge Instructions * Instructions* Dona Vargas RN - 11/30/2018 Follow up with OB as scheduled Stay hydrated Elevated leg while sitting/laying As needed miralax for constipation documented in this encounter* Attachments The following attachments cannot be sent through Care Everywhere. * : Vaginal Bleeding (Armenian) documented in this encounter History of Present [...] when pt backin bed. * Argenis Daniel [facility] - 11/30/2018 7:[address] [facility] Department Pharmacy Vancomycin Consult: Vancomycin Day: day 2 Current Dosing: vancomycin 1750mg IV every 8 hrs Temp max: 98.5 Recent Labs 11/28/18 1944 11/29/18 0550 CREATININE 0.81 0.80 Estimated Creatinine Clearance: 181 mL/min (based on SCr of 0.8 mg/dL). Recent Labs 11/28/18 1944 11/29/18 0550 11/30/18 0542 WBC 16.9* 16.6* 6.3 [...] 72 hours while on vancomycin. Thank you, Argenis Daniel, [place].Ph., 11/30/2018,7:23 AM * Shelly French LSW - 11/29/2018 4:47 PM EDT Met with Patient this p.m. She is a 23 year old single, white female, admitted with Sepsis. Patientis alert and oriented, polite and cooperative with this assessment. Friend at bedside at this time. Patient resides in [place] with her parents. She uses no DME and has no outside services or community resources currently in place. Patient is employed at [employer] but is currently off work. Patient does drive, provides for her own transportation needs. PCP is Dr. Osullivan. Patient denies having difficulty with affording her medications. Plan for Patient is home upon discharge. She is interested in pursuing Advanced Directives. Educational pamphlet provided at this time. Referral made to Pastoral [facility] to follow up with this request. SCIENTIST to monitor for discharge needs and assist as they arise. ULICES [place] 11/29/2018 * Florinda Muir RN - 11/29/2018 11:09 AM EDT Unsuccessful attempt x2 for new IV access. Harbor Department Manager called and will be up to attempt. * Ric Vasquez RD, LD - 11/29/2018 8:34 AM EDT Nutrition [...] 5. Fluid Accumulation-Mild fluid accumulation, Extremities 6. Proposition Player Strength-Not measured Nutrition Risk Level: Moderate, Low [...] , none significant per available data. [place] Body Wt: 145 lb (65.8 kg), % [place] Body 255% BMI Classification: BMI > or [...] Pertinent Labs, Weight, Patient/Family Education Contact Number: [phone] * Florinda Muir RN - 11/29/2018 8:30 AM EDT Cardiovascular Or Nurse called into room by lab, patient c/o pain at IV site. LUE swollen and harder to touch. IV turned off at this time and ice pack applied. * Padmaja Montano RN - 11/29/2018 12:28 AM EDT Spoke with Dr. Horton regarding pharmacist call about antibiotics. Orders received to modify per pharmacy recommendation. * Padmaja Montano, KRISTIE - 11/29/2018 12:18 AM EDT Spoke with Dr. Pond regarding consult to ORACLE SOFTWARE ENGINEER. She is aware of patient, and will speak with Andres DOW in the morning. * Epi Jacques [facility] - 11/28/2018 9:25 PM EDT Pharmacy [...] section and content) DATE CREATED AUTHOR 11/17/2018 [facility] DATE CREATED AUTHOR AUTHOR'S ORGANIZ ATION 12/04/2018 [facility] DATE CREATED AUTHOR AUTHOR'S ORGANIZ ATION 04/30/2021 [facility] DATE CREATED AUTHOR AUTHOR'S ORGANIZ ATION 05/14/2022 [facility] dical Specialist DATE CREATED AUTHOR AUTHOR'S ORGANIZ ATION 07/21/2022 [facility] DATE CREATED AUTHOR AUTHOR'S ORGANIZ ATION 08/14/2023 [facility] Reason for Visit (unrecogniz ed section and content) Reason Comments Fatigue BEGAN 1730 TODAY, po st x3 days, baby born at 22 weeks, Chills Fever Status Reason Specialty Diagnoses / Procedures Referre d By Contact Referred To Contact Diagnoses Sepsis (HCC) Sepsis (HCC) Brenton Horotn MD [address] [place] [address], [place] [address] [facility] Reason Comments Vaginal Bleeding Zo Bee RN - 09/17/2018 12:03 AM EDT ED Notes (unrecognized secti on and content) Bleeding started within the last hour, pt is 11weeks and 5 days. Pt states bleeding is only when she wipes after using the rest room. documented in this encounter Care Teams (unrecognized sec tion and content) Hoseman Relationship Specialty Start Date End Date Mike Osullivan MD [address] [phone] PCP - General Family Medicine 11/24/18 FOR [...] BE BASED ON THE PRIMARY CLINICAL RECORDS. [employer] provides no warranty or guarantee of the accuracy or completeness of information in this document.
--- NOTE | 2023-12-22 14:48 | P.CN_ITS ---
Consult Note: HPI Data of Consult Patient: known to practice within the last 3 years Consult date: 07/11/23 Requesting Physician: Peggy Rodriguez NP Primary Care Provider: Shashi Osullivan MD Consult Narrative Reason for consult: low back, right leg pain Narrative: 28yof who presents for evaluation. worsening pain from low back to right leg. imaging reviewed, which shows disc herniation at right l4-5 with impingement of l5 nerve root. has engaged in >6 weeks of provider directed home exercise program, without benefit. uses diclofenac and tizanidine, with some benefit. Previously underwent right L4-5 L5-S1 TFESI x2 with >50% improvement ongoing. Significant functional improvement, now able to ambulate and drive. patient noticing increase in right hip and groin pain at random ties without known cause or aggravating/alleviating factors cc:: CC: Peggy Rodriguez NP Review of Systems ROS Status of ROS 10 or more systems reviewed and unremark able except as noted in history and below Musculoskeletal Reports: back pain and joint pain PFSH PFSH Medical History (Updated 12/22/23 @ 14:49 by Peggy Rodriguez NP) History of stress test ?Z92.89 - Personal history of other medical treatment (ICD-10) Low back pain ?M54.50 - Low back pain, unspecified (ICD-10) Anxiety ?F41.9 - Anxiety disorder, unspecified (ICD-10) Obesity ?E66.9 - Obesity, unspecified (ICD-10) Asthma ?J45.909 - Unspecified asthma, uncomplicated (ICD-10) Palpitations ?R00.2 - Palpitations (ICD-10) Surgical History History of wisdom tooth extraction ?K08.409 - Partial loss of teeth, unspecified cause, unspecified class (ICD- 10) Social History Smoking status: Current every day smoker Meds Home Medications and Allergies Home Medications ?Medication ?Instructions ?Recorded ?Confirmed ?Type valacyclovir 1 gram tablet 1,000 mg PO Q8H 07/11/23 08/08/23 History ibuprofen 600 mg tablet (IBU) 600 mg PO TID-QID PRN pain 07/25/23 08/08/23 History Allergies Allergy/AdvReac Type Severity Reaction Status Date / Time docosanol [From Abreva] Allergy Mild SWELLING Verified 08/08/23 09:16 sulfamethoxazole Allergy Verified 08/08/23 09:16 [From Bactrim] trimethoprim [From Bactrim] Allergy Verified 08/08/23 09:16 Exam Constitutional Documenting provider has reviewed patient's vital signs: yes Common normals: no apparent distress, oriented x3, healthy appearing, alert and well nourished General appearance: cooperative HENMT Common normals: normocephalic, hearing grossly normal bilaterally and moist oral mucous membranes Head and scalp: normocephalic Eye Common normals: PERRL Pupil: PERRL Neck & C-Spine Common normals: full ROM General: normal visual inspection Chest Common normals: inspection of chest normal Respiratory Common normals: normal respiratory effort, no retractions and no use of accessory muscles Back & Pelvis Lumbar spine/lower back: normal to inspection, lumbar ROM normal and straight leg raise negative bilaterally Extremity Right lower extremity: hip joint Other: negative internal and external log roll negative right ángela(patricks), gaenslens, thigh thrust, compression test Neuro Common normals: oriented x3, CN's II-XII intact bilaterally, moves all extremities, no focal motor deficits, no sensory deficits noted and deep tendon reflexes 2+ bilaterally Sensorium/orientation: alert Motor exam: strength 5/5 throughout and no movement abnormalities noted Psych Common normals: mental status grossly normal, thought process normal, cooperative, affect normal, speech normal and activity/motor behavior normal Speech: normal speech Thought process: normal thought process Assessment and Plan Assessment and Plan (1) Lumbar stenosis with neurogenic claudication: (2) Right hip pain: (3) Sacroiliitis: Plan update right hip xray to evaluate right hip pain continue current medications f/u as needed
== END 2023-12-22 14:14 | disposition home or self-care (01) ==
LOC: PM 14:16
PROVIDERS: PCP Family Medicine; Visit Provider Nurse Practitioner
DX: M48.062 Spinal stenosis, lumbar region with neurogenic claudication (principal); M46.1 Sacroiliitis, not elsewhere classified; M25.551 Pain in right hip
CPT/HCPCS: G0463

== ENCOUNTER 2024-01-22 13:39 | Emergency (ER) | payer OTHER, SELFPAY ==
[2024-01-22 13:55] VITALS: BP 180/90; PULSE 117; TEMP 38.4; O2SAT 97; BMI 64.6
--- NOTE | 2024-01-22 14:14 | XR_ITS ---
The [address] [address] Patient Name: DEION HUITRON MRN: [id number] date: 1995 Sex: F Assigned Patient Location: ER Current Patient Location: ED.MAIN Accession/Order Number: [id number] Exam Date: 01/22/2024 14:46 Report Date: 01/22/2024 15:44 At the request of: GONZALEZ DURAN Procedure: XR chest 1V EXAM: XR chest 1V at 1437 hours HISTORY: sob COMPARISON: 02/03/2023 TECHNIQUE: AP upright portable chest x-ray FINDINGS: The study is significantly limited by the patient's body habitus and technique. The heart is near the upper limits of normal in size and there is mild prominence of the central pulmonary vasculature. There is no clear evidence of a focal infiltrate, effusion or pneumothorax. The osseous structures are grossly intact. XR/XR chest 1V IMPRESSION: Limited study. No apparent acute infiltrate or evidence of cardiac decompensation. Given the differences in projection and soft tissue attenuation, the overall appearance of the chest has probably not changed significantly. Electronically authenticated by: ARIS HOLLAND Date: 01/22/2024 15:44
--- OUTSIDE RECORDS SUMMARY | 2024-01-22 14:16 | XMS_ITS | CCD ---
Author Organization [facility] CliniSynj Care Team Providers Care Cover Remover Name Role Phone JENNIFER VIVAR Attending Unavailable HOY, MIKE Primary Care Unavailable Vincenty, Mike M Primary Care Provider [phone] RONY OSULLIVANLAS M Primary Care Unavailable JENNIFER HEDRICK Admitting Unavailable JENNIFER HEDRICK Attending Unavailable RAVIN, MIKE M Primary Care Unavailable BRENTON HORTON Admitting Unavailable BRENTON HORTON Attending Unavailable LARISSA SAMPSON Consulting Unavail able ABEBE STEPHENS Admitting Unavailable ERASTO STEPHENSE Attending Unavailable Rony Osullivanlas M Primary Care Provider [phone] Ravin, Mike Primary Care Provider [phone] Mike Osullivan MD Primary Care Provider VADIM [...] docosanol; Translations: [Unknown] Drug Allergy 9 Swelling [facility] Repository (1 source) docosanol Drug Allergy [facility] Repository (1 source) Sulfamethoxazole / Trimethoprim Drug Allergy 0 [facility] Medications Current Medications Medication [...] every week vitamin D (ERGOCALCIFEROL) 1.25 MG (34587 UT) CAPS capsule Take 1 capsule by [...] Starting Tue11/28/18 at 2353 polyethylene glycol 3350 59715 mg powder for oral solution (1 source) [...] by Hitesh Norman on 05/13/2022 1439 Normal [facility] Covid-19 PCR (CVDTBH)on 02-19 SARS-CoV-2 (COVID-19) RNA CLIFF+probe Ql (Unsp spec) Detected Critically abnormal NOT DETECTED [facility] Comment on above: Result Comment: This test is not yet approved or cleared by the [place] FDA. When there are no FDA-approved or cleared tests available, and other criteria are met, FDA can make tests available under an emergency access mechanism called an Emergency Use Authorization (EUA). The EUA for this test is supported by the Market President of Health and Human Service's declaration that [...] used). Performed By: #### C VDTBH #### [facility] [address] [place] [address] Dr. Lilli Soriano INFLUENZA A AND B AGon 03-18 INFLUANEGH SEE BELOW Normal [facility] Comment on above: Result Comment: Nega tive for Flu A protein angiten. Infection due to Flu A cannot be ruled out. Flu A angiten in the sample may be below the detection limit of the test. Performed By: #### I NFLUAB #### [facility] [address] [place] [address] Dr. Lilli Soriano INFLUBNEG SEE BELOW Normal [facility] Comment on above: Result Comment: Nega tive for Flu B protein antigen. Infection due to Flu B cannot be ruled out. Flu B antigen in the sample may be below the detection limit of the test. Performed By: #### I NFLUAB #### [facility] [address] [place] [address] Dr. Lilli Soriano INFLUENZA A AG Negative Normal NEGATIVE SEE COMMENT [facility] Comment on above: Performed By: #### I NFLUAB #### [facility] [address] [address] [address] Lilli Soriano INFLUENZA B AG Negative Normal NEGATIVE SEE COMMENT [facility] Comment on above: Performed By: #### I NFLUAB #### [facility] [id number] Lilli Soriano US Pelvic, Transvaginalon US [...] by Burton Mcdaniel on 12/24/2021 0958 Normal [facility] Covid-19 PCR (CVDTBH)on 11-21 SARS-CoV-2 (COVID-19) RNA CLIFF+probe Ql (Unsp spec) Not detected Normal NOT DETECTED [facility] Comment on above: Result Comment: This test is not yet approved or cleared by the [place] FDA. When there are no FDA-approved or cleared tests available, and other criteria are met, FDA can make tests available under an emergency access mechanism called an Emergency Use Authorization (EUA). The EUA for this test is supported by the Letts of Health and Human Service's (HHS's) declaration [...] SARS-CoV-2. Performed By: #### C VDTBH #### [facility] [id number] Lilli Soriano VC VENOUS REFLUX GRACIELA LMTon 0 12-04-2021 VC VENOUS REFLUX GRACIELA LMT Patient: DEION CUMMINGS Exam Date: 12/04/2021 : 1995 Gender:F Ordering : DR MIKE OSULLIVAN . Admission #: [id number] Family : Order #: [id number] CLICK HERE TO VIEW EXAM RADIOLOGY REPORT [...] chronic thrombus visualized. 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 Dist/med [...] MD on 12/04/2021 at 09:37 Normal [facility] INSULINon 11-26-2021 Insulin 21.8 uIU/mL Normal 2.6-24.9 [facility] Comment on above: Performed By: #### I NSULIN #### [facility] [address] [place] [address] Dr. Lilli Soriano T4, T3U, FTI LABCORPon 11-26 Free Thyroxine Index 2.2 Normal 1.2-4.9 [facility] Comment on above: Performed By: #### B M1 ARMOR CREWMAN, TSH, LIPID, CMP #### [facility] [address] [address] [address] Lilli Soriano T3 Uptake 30 % Normal 24-39 [facility] Comment on above: Performed By: #### B M1 ARMOR CREWMAN, TSH, LIPID, CMP #### [facility] [address] [place] [address] Dr. Lilli Soriano T4 [Mass/Vol] 7.3 ug/dL Normal 4.5-12.0 [facility] Comment on above: Performed By: #### B M1 ARMOR CREWMAN, TSH, LIPID, CMP #### [facility] [address] [place] [address] Dr. Lilli Soriano BNPon 11-25-2021 Natriuretic peptide B (Bld) [Mass/Vol] 35.0 pg/mL Normal <=450.0 [facility] Comment on above: Performed By: #### B M1 ARMOR CREWMAN, TSH, LIPID, CMP #### [facility] [address] [place] [address] Dr. Lilli Soriano CBC AUTO DIFFon 11-25-2021 BASO # 0.0 103/ul Normal 0.0-0.1 [facility] Comment on above: Performed By: #### B M1 ARMOR CREWMAN, TSH, LIPID, CMP #### [facility] [address] [place] [address] Dr. Lilli Soriano Basophils/100 WBC (Bld) 0.5 % Normal 0.2-2.0 [facility] Comment on above: Performed By: #### B M1 ARMOR CREWMAN, TSH, LIPID, CMP #### [facility] [address] [place] [address] Dr. Lilli Soriano EO # 0.1 103/ul Normal 0.0-0.7 [facility] Comment on above: Performed By: #### B M1 ARMOR CREWMAN, TSH, LIPID, CMP #### [facility] [address] [place] [address] Dr. Lilli Soriano Eosinophils/100 WBC (Bld) 1.7 % Normal 0.9-7.0 [facility] Comment on above: Performed By: #### B M1 ARMOR CREWMAN, TSH, LIPID, CMP #### [facility] [address] [place] [address] Dr. Lilli Soriano Erythrocyte distribution width (RBC) [Ratio] 13.6 % Normal 11.0-15.0 [facility] Comment on above: Performed By: #### B M1 ARMOR CREWMAN, TSH, LIPID, CMP #### [facility] [address] [place] [address] Dr. Lilli Soriano Hematocrit (Bld) [Volume fraction] 42.6 % Normal 36.0-48.0 [facility] Comment on above: Performed By: #### B M1 ARMOR CREWMAN, TSH, LIPID, CMP #### [facility] [address] [place] [address] Dr. Lilli Soriano Hemoglobin (Bld) [Mass/Vol] 13.6 g/dL Normal 12.0-16.0 [facility] Comment on above: Performed By: #### B M1 ARMOR CREWMAN, TSH, LIPID, CMP #### [facility] [address] [place] [address] Dr. Lilli Soriano IG # 0.04 10e3/ul Critically high 0.00-0.[address] [facility] Comment on above: Performed By: #### B M1 ARMOR CREWMAN, TSH, LIPID, CMP #### [facility] [address] [place] [address] Dr. Lilli Soriano IG % 0.5 % Normal 0.0-0.5 [facility] Comment on above: Performed By: #### B M1 ARMOR CREWMAN, TSH, LIPID, CMP #### [facility] [address] [place] [address] Dr. Lilli Soriano LYMPH # 1.7 103/ul Normal 1.2-3.8 [facility] Comment on above: Performed By: #### B M1 ARMOR CREWMAN, TSH, LIPID, CMP #### [facility] [address] [place] [address] Dr. Lilli Soriano Lymphocytes/100 WBC (Bld) 19.9 % Critically low 20.5-60.0 [facility] Comment on above: Performed By: #### B M1 ARMOR CREWMAN, TSH, LIPID, CMP #### [facility] [address] [place] [address] Dr. Lilli Soriano MANUAL DIFF REQ NO Normal [facility] Comment on above: Performed By: #### B M1 ARMOR CREWMAN, TSH, LIPID, CMP #### [facility] [address] [place] [address] Dr. Lilli Soriano MCH (RBC) [Entitic mass] 28.0 pg Normal 26.7-34.0 [facility] Comment on above: Performed By: #### B M1 ARMOR CREWMAN, TSH, LIPID, CMP #### [facility] [address] [place] [address] Dr. Lilli Soriano MCHC (RBC) [Mass/Vol] 31.9 g/dL Normal 29.9-35.2 [facility] Comment on above: Performed By: #### B M1 ARMOR CREWMAN, TSH, LIPID, CMP #### [facility] [address] [place] [address] Dr. Lilli Soriano MCV (RBC) [Entitic vol] 87.7 fL Normal 81.0-99.0 [facility] Comment on above: Performed By: #### B M1 ARMOR CREWMAN, TSH, LIPID, CMP #### [facility] [address] [place] [address] Dr. Lilli Soriano MONO # 0.5 103/ul Normal 0.3-0.8 [facility] Comment on above: Performed By: #### B M1 ARMOR CREWMAN, TSH, LIPID, CMP #### [facility] [address] [place] [address] Dr. Lilli Soriano Monocytes/100 WBC (Bld) 5.9 % Normal 1.7-12.0 [facility] Comment on above: Performed By: #### B M1 ARMOR CREWMAN, TSH, LIPID, CMP #### [facility] [address] [place] [address] Dr. Lilli Soriano NEUT # 6.1 103/ul Normal 1.4-6.5 [facility] Comment on above: Performed By: #### B M1 ARMOR CREWMAN, TSH, LIPID, CMP #### [facility] [address] [place] [address] Dr. Lilli Soriano Neutrophils/100 WBC (Bld) 71.5 % Normal 43.0-75.0 [facility] Comment on above: Performed By: #### B M1 ARMOR CREWMAN, TSH, LIPID, CMP #### [facility] [address] [place] [address] Dr. Lilli Soriano Platelet mean volume (Bld) [Entitic vol] 9.7 fL Normal 9.5-13.5 [facility] Comment on above: Performed By: #### B M1 ARMOR CREWMAN, TSH, LIPID, CMP #### [facility] [address] [place] [address] Dr. Lilli Soriano PLT 289 103/ul Normal 150-450 [facility] Comment on above: Performed By: #### B M1 ARMOR CREWMAN, TSH, LIPID, CMP #### [facility] [address] [place] [address] Dr. Lilli Soriano RBC 4.86 106/ul Normal 4.20-5.40 [facility] Comment on above: Performed By: #### B M1 ARMOR CREWMAN, TSH, LIPID, CMP #### [facility] [address] [place] [address] Dr. Lilli Soriano WBC 8.5 103/ul Normal 4.0-11.0 [facility] Comment on above: Performed By: #### B M1 ARMOR CREWMAN, TSH, LIPID, CMP #### [facility] [address] [place] [address] Dr. Lilli Soriano CULTURE URINEon 11-25-2021 CULTURE URINE Culture Observations : LIGHT GROWTH OF MIXED GENITAL CHICA. NO POTENTIAL PATHOGENS SEEN. Normal [facility] Comment on above: Performed By: #### B M1 ARMOR CREWMAN, TSH, LIPID, CMP #### [facility] [address] [place] [address] Dr. Lilli Soriano GLYCOHEMOGLOBIN A1Con 2021 ADA RECOMMENDATION SEE BELOW Normal [facility] Comment on above: Result Comment: ADA RECOMMENDED LIMIT 4.0 - 6.0 ADA THERAPEUTIC TARGET < 7.0 ACTION SUGGESTED > 7.0 Performed By: #### B M1 ARMOR CREWMAN, TSH, LIPID, CMP #### [facility] [address] [place] [address] Dr. Lilli Soriano Glucose [Mass/Vol] 108 mg/dL Normal [facility] Comment on above: Performed By: #### B M1 ARMOR CREWMAN, TSH, LIPID, CMP #### [facility] [address] [place] [address] Dr. Lilli Soriano HbA1c (Bld) [Mass fraction] 5.4 % Normal 4.5-6.2 [facility] Comment on above: Performed By: #### B M1 ARMOR CREWMAN, TSH, LIPID, CMP #### [facility] [address] [place] [address] Dr. Lilli Soriano IRONon 11-25-2021 Iron [Mass/Vol] 47.0 ug/dL Critically low 50.0-170.0 [facility] Comment on above: Performed By: #### B M1 ARMOR CREWMAN, TSH, LIPID, CMP #### [facility] [address] [address] [address] Lilli Soriano LIPID PROFILEon 11-25-2021 CHOL-HDL RATIO NORM SEE BELOW Normal [facility] Comment on above: Result Comment: 3.3 - 4.4 LOW RISK 4.4 - 7.1 AVERAGE RISK 7.1 - 11.0 MODERATE RISK >11.0 HIGH RISK Performed By: #### B M1 ARMOR CREWMAN, TSH, LIPID, CMP #### [facility] [address] [address] [address] Lilli Soriano Cholesterol [Mass/Vol] 153 mg/dL Normal <=200 [facility] Comment on above: Performed By: #### B M1 ARMOR CREWMAN, TSH, LIPID, CMP #### [facility] [address] [address] [address] Lilli Soriano Cholesterol in HDL [Mass/Vol] 56 mg/dL Normal 40-60 [facility] Comment on above: Performed By: #### B M1 ARMOR CREWMAN, TSH, LIPID, CMP #### [facility] [address] [address] [address] Lilli Soriano Cholesterol in LDL [Mass/Vol] 88.4 mg/dL Normal [facility] Comment on above: Performed By: #### B M1 ARMOR CREWMAN, TSH, LIPID, CMP #### [facility] [address] [address] [address] Lilli Soriano Cholesterol.total/Cho lesterol in HDL [Mass ratio] 2.7 {ratio} Normal [facility] Comment on above: Performed By: #### B M1 ARMOR CREWMAN, TSH, LIPID, CMP #### [facility] [address] [address] [address] Lilli Soriano HDL NORMAL > or = 60 mg/dl - LO W CARDIOVASCULAR RISK <40 mg/dl - HIGH CARDIOVASCULAR RISK Normal [facility] Comment on above: Performed By: #### B M1 ARMOR CREWMAN, TSH, LIPID, CMP #### [facility] [address] [address] [address] Lilli Soriano LDL CALC NORMAL SEE BELOW Normal [facility] Comment on above: Result Comment: <100 mg/dl OPTIMAL 100 - 129 mg/dl NEAR OR ABOVE OPTIMAL 130 - 159 mg/dl BORDERLINE HIGH 160 - 189 mg/dl HIGH >190 mg/dl VERY HIGH Performed By: #### B M1 ARMOR CREWMAN, TSH, LIPID, CMP #### [facility] [address] [place] [address] Dr. Lilli Soriano Triglyceride [Mass/Vol] 43 mg/dL Normal <=150 [facility] Comment on above: Performed By: #### B M1 ARMOR CREWMAN, TSH, LIPID, CMP #### [facility] [address] [place] [address] Dr. Lilli Soriano VLDL CALC 8.6 mg/dL Normal [facility] Comment on above: Performed By: #### B M1 ARMOR CREWMAN, TSH, LIPID, CMP #### [facility] [address] [place] [address] Dr. Lilli Soriano PROF 14(COMP METB)on 022 Albumin [Mass/Vol] 3.7 g/dL Normal 3.4-5.0 [facility] Comment on above: Performed By: #### B M1 ARMOR CREWMAN, TSH, LIPID, CMP #### [facility] [address] [place] [address] Dr. Lilli Soriano Albumin/Globulin [Mass ratio] 1.0 {ratio} Normal [facility] Comment on above: Performed By: #### B M1 ARMOR CREWMAN, TSH, LIPID, CMP #### [facility] [address] [place] [address] Dr. Lilli Soriano ALP [Catalytic activity/Vol] 58 U/L Normal 46-116 [facility] Comment on above: Performed By: #### B M1 ARMOR CREWMAN, TSH, LIPID, CMP #### [facility] [address] [place] [address] Dr. Lilli Soriano ALT [Catalytic activity/Vol] 30 U/L Normal 14-59 [facility] Comment on above: Performed By: #### B M1 ARMOR CREWMAN, TSH, LIPID, CMP #### [facility] [address] [place] [address] Dr. Lilli Soriano Anion gap [Moles/Vol] 9.9 mmol/L Normal [facility] Comment on above: Performed By: #### B M1 ARMOR CREWMAN, TSH, LIPID, CMP #### [facility] [address] [place] [address] Dr. Lilli Soriano AST [Catalytic activity/Vol] 10 U/L Critically low 15-37 [facility] Comment on above: Performed By: #### B M1 ARMOR CREWMAN, TSH, LIPID, CMP #### [facility] [address] [place] [address] Dr. Lilli Soriano Bilirubin [Mass/Vol] 0.4 mg/dL Normal 0.2-1.0 [facility] Comment on above: Performed By: #### B M1 ARMOR CREWMAN, TSH, LIPID, CMP #### [facility] [address] [place] [address] Dr. Lilli Soriano Calcium [Mass/Vol] 8.8 mg/dL Normal 8.5-10.1 [facility] Comment on above: Performed By: #### B M1 ARMOR CREWMAN, TSH, LIPID, CMP #### [facility] [address] [place] [address] Dr. Lilli Soriano Chloride [Moles/Vol] 102 mmol/L Normal 98-107 [facility] Comment on above: Performed By: #### B M1 ARMOR CREWMAN, TSH, LIPID, CMP #### [facility] [address] [place] [address] Dr. Lilli Soriano CO2 [Moles/Vol] 30.1 mmol/L Normal 21.0-32.0 [facility] Comment on above: Performed By: #### B M1 ARMOR CREWMAN, TSH, LIPID, CMP #### [facility] [address] [place] [address] Dr. Lilli Soriano Creatinine [Mass/Vol] 0.90 mg/dL Normal 0.55-1.02 [facility] Comment on above: Performed By: #### B M1 ARMOR CREWMAN, TSH, LIPID, CMP #### [facility] [address] [place] [address] Dr. Lilli Soriano EGFR-AF SWEDISH >60 Normal >=60 [facility] Comment on above: Performed By: #### B M1 ARMOR CREWMAN, TSH, LIPID, CMP #### [facility] [address] [place] [address] Dr. Lilli Soriano EGFR-NON AF SWEDISH >60 Normal >=60 [facility] Comment on above: Performed By: #### B M1 ARMOR CREWMAN, TSH, LIPID, CMP #### [facility] [address] [place] [address] Dr. Lilli Soriano Globulin (S) [Mass/Vol] 3.7 g/dL Normal [facility] Comment on above: Performed By: #### B M1 ARMOR CREWMAN, TSH, LIPID, CMP #### [facility] [address] [address] [address] Lilli Soriano Glucose [Mass/Vol] 96 mg/dL Normal 74-106 [facility] Comment on above: Performed By: #### B M1 ARMOR CREWMAN, TSH, LIPID, CMP #### [facility] [address] [place] [address] Dr. Lilli Soriano Potassium [Moles/Vol] 4.0 mmol/L Normal 3.5-5.1 [facility] Comment on above: Performed By: #### B M1 ARMOR CREWMAN, TSH, LIPID, CMP #### [facility] [address] [place] [address] Dr. Lilli Soriano Protein [Mass/Vol] 7.4 g/dL Normal 6.4-8.2 [facility] Comment on above: Performed By: #### B M1 ARMOR CREWMAN, TSH, LIPID, CMP #### [facility] [address] [place] [address] Dr. Lilli Soriano Sodium [Moles/Vol] 138 mmol/L Normal 136-145 [facility] Comment on above: Performed By: #### B M1 ARMOR CREWMAN, TSH, LIPID, CMP #### [facility] [address] [place] [address] Dr. Lilli Soriano Urea nitrogen [Mass/Vol] 12.0 mg/dL Normal 7.0-18.0 [facility] Comment on above: Performed By: #### B M1 ARMOR CREWMAN, TSH, LIPID, CMP #### [facility] [address] [place] [address] Dr. Lilli Soriano Urea nitrogen/Creatinine [Mass ratio] 13.3 mg/mg Normal [facility] Comment on above: Performed By: #### B M1 ARMOR CREWMAN, TSH, LIPID, CMP #### [facility] [address] [place] [address] Dr. Lilli Soriano TSHon 11-25-2021 TSH 1.196 uIU/mL Normal 0.358-3.740 [facility] Comment on above: Performed By: #### B M1 ARMOR CREWMAN, TSH, LIPID, CMP #### [facility] [address] [place] [address] Dr. Lilli Soriano UA RANDOM W/MICROSCOPICon BACTERIA TRACE Abnormal NONE SEEN [facility] Comment on above: Performed By: #### B M1 ARMOR CREWMAN, TSH, LIPID, CMP #### [facility] [address] [place] [address] Dr. Lilli Soriano Bilirubin Ql (U) Negative Normal NEGATIVE [facility] Comment on above: Performed By: #### B M1 ARMOR CREWMAN, TSH, LIPID, CMP #### [facility] [address] [place] [address] Dr. Lilli Soriano CAST NONE SEEN Normal NONE SEEN [facility] Comment on above: Performed By: #### B M1 ARMOR CREWMAN, TSH, LIPID, CMP #### [facility] [address] [place] [address] Dr. Lilli Soriano Clarity (U) CLEAR Normal CLEAR [facility] Comment on above: Performed By: #### B M1 ARMOR CREWMAN, TSH, LIPID, CMP #### [facility] [address] [place] [address] Dr. Lilli Soriano Color (U) LT. YELLOW Normal YELLOW [facility] Comment on above: Performed By: #### B M1 ARMOR CREWMAN, TSH, LIPID, CMP #### [facility] [address] [place] [address] Dr. Lilli Soriano Crystals LM Nom (Urine sed) NONE SEEN Normal NONE SEEN [facility] Comment on above: Performed By: #### B M1 ARMOR CREWMAN, TSH, LIPID, CMP #### [facility] [address] [place] [address] Dr. Lilli Soriano Epithelial cells LM Ql (Urine sed) MODERATE Abnormal NONE SEEN /RARE [facility] Comment on above: Performed By: #### B M1 ARMOR CREWMAN, TSH, LIPID, CMP #### [facility] [address] [address] [address] Lilli Soriano Glucose Ql (U) Negative Normal NEGATIVE [facility] Comment on above: Performed By: #### B M1 ARMOR CREWMAN, TSH, LIPID, CMP #### [facility] [address] [place] [address] Dr. Lilli Soriano Hemoglobin Ql (U) Negative Normal NEGATIVE [facility] Comment on above: Performed By: #### B M1 ARMOR CREWMAN, TSH, LIPID, CMP #### [facility] [address] [place] [address] Dr. Lilli Soriano Ketones Ql (U) Negative Normal NEGATIVE [facility] Comment on above: Performed By: #### B M1 ARMOR CREWMAN, TSH, LIPID, CMP #### [facility] [address] [place] [address] Dr. Lilli Soriano LEUKOCYTES Negative Normal NEGATIVE [facility] Comment on above: Performed By: #### B M1 ARMOR CREWMAN, TSH, LIPID, CMP #### [facility] [address] [place] [address] Dr. Lilli Soriano MUCOUS NONE SEEN Normal NONE SEEN [facility] Comment on above: Performed By: #### B M1 ARMOR CREWMAN, TSH, LIPID, CMP #### [facility] [address] [place] [address] Dr. Lilli Soriano Nitrite Ql (U) Negative Normal NEGATIVE [facility] Comment on above: Performed By: #### B M1 ARMOR CREWMAN, TSH, LIPID, CMP #### [facility] [address] [place] [address] Dr. Lilli Soriano pH (U) 7.0 [pH] Normal 5-9 [facility] Comment on above: Performed By: #### B M1 ARMOR CREWMAN, TSH, LIPID, CMP #### [facility] [address] [place] [address] Dr. Lilli Soriano RBC 0-2 Normal 0-2 [facility] Comment on above: Performed By: #### B M1 ARMOR CREWMAN, TSH, LIPID, CMP #### [facility] [address] [place] [address] Dr. Lilli Soriano SPEC GRAVITY 1.010 Normal 1.005-<=1.02 5 [facility] Comment on above: Performed By: #### B M1 ARMOR CREWMAN, TSH, LIPID, CMP #### [facility] [address] [address] [address] Lilli Soriano UA PROTEIN Negative Normal NEGATIVE/ TRACE [facility] Comment on above: Performed By: #### B M1 ARMOR CREWMAN, TSH, LIPID, CMP #### [facility] [address] [address] [address] Lilli Soriano Urobilinogen Qn (U) 0.2 {Macho'U}/dL Normal 0.2 - 1. 0 [facility] Comment on above: Performed By: #### B M1 ARMOR CREWMAN, TSH, LIPID, CMP #### [facility] [address] [address] [address] Lilli Soriano WBC NONE SEEN Normal NONE SEEN [facility] Comment on above: Performed By: #### B M1 ARMOR CREWMAN, TSH, LIPID, CMP #### [facility] [address] [place] [address] Dr. Lilli Soriano URon 09-19-2021 , QUAL Negative Normal NEGATIVE [facility] Comment on above: Performed By: #### B M1 ARMOR CREWMAN, TSH, LIPID, CMP #### [facility] [address] [place] [address] Dr. Lilli Soriano XR LSPINE 2_3 VIEWSon [...] disc space at L5-S1. Electronically authenticated by: [facility] Date: 2021-09-19 12:59 Normal [facility] Covid-19 PCR (CVDTB)on 07-19 SARS-CoV-2 (COVID-19) RNA CLIFF+probe Ql (Unsp spec) Not detected Normal NOT DETECTED [facility] Comment on above: Result Comment: This test is not yet approved or cleared by the [place] FDA. When there are no FDA-approved or cleared tests available, and other criteria are met, FDA can make tests available under an emergency access mechanism called an Emergency Use Authorization (EUA). The EUA for this test is supported by the Market President of Health and Human Service's (HHS's) declaration [...] SARS-CoV-2. Performed By: #### C VDTBH #### [facility] [address] [place] [address] Dr. Lilli Soriano INFLUENZA A AND B [facility]on 07[facility] Normal [facility] Comment on above: Result Comment: Nega tive for Flu A protein angiten. Infection due to Flu A cannot be ruled out. Flu A angiten in the sample may be below the detection limit of the test. Performed By: #### I NFLUAB #### [facility] [address] [place] [address] Dr. Lilli Soriano INFLUBNEG SEE BELOW Normal [facility] Comment on above: Result Comment: Nega tive for Flu B protein antigen. Infection due to Flu B cannot be ruled out. Flu B antigen in the sample may be below the detection limit of the test. Performed By: #### I NFLUAB #### [facility] [address] [place] [address] Dr. Lilli Soriano INFLUENZA A AG Negative Normal NEGATIVE SEE COMMENT [facility] Comment on above: Performed By: #### I NFLUAB #### [facility] [address] [place] [address] Dr. Lilli Soriano INFLUENZA B AG Negative Normal NEGATIVE SEE COMMENT [facility] Comment on above: Performed By: #### I NFLUAB #### [facility] [address] [place], [place] [address] Dr. Lilli Soriano INTERNAL CONTROLS Within Normal Limits Normal Wi thin Normal Limits [facility] Comment on above: Performed By: #### I NFLUAB #### [facility] [address] [place], [place] [address] Dr. Lilli Soriano HCG, Quanton 04-29-2021 HCG, Quant <1 Normal <5 [facility] Comment on above: Result Comment: Non-preg [...] liver. Performed By: #### B HCG #### [facility] [address] [place] [address] Supervisor Hanging And Trimming: Geo Mar MD hCG, Quantitative, on 04-29-2021 hCG Quant <1 <5 IU/L [facility] Comment on above: Non-preg premeno <=5 Postmeno <=8 Male <=3 If HCG results do not concur with clinical observations, additional testing to confirm results is recommended. Elevated results not associated with may be found in patients with other diseases such as tumors of the germ cells (testis, ovaries, etc.), bladder, pancreas, stomach, lungs, and liver. [facility] CBC Auto Differentialon 03-21 Basophils (Bld) [#/Vol] 0.04 10*3/uL [place] Basophils/100 WBC (Bld) 1 % 0 - 2 % [place] Differential Type NOT REPORTED [place] Eosinophils (Bld) [#/Vol] 0.15 10*3/uL [place] Eosinophils/100 WBC (Bld) 2 % 1 - 4 % [place] Erythrocyte distribution width (RBC) [Ratio] 12.9 % 11.8 - 14.4 % [place] Hematocrit (Bld) [Volume fraction] 44.6 % 36.3 - 47.1 % [place] Hemoglobin (Bld) [Mass/Vol] 14.6 g/dL 11.9 - 15.1 g/dL [place] Immature granulocytes (Bld) [#/Vol] 0.05 10*3/uL [place] Immature granulocytes (Bld) [#/Vol] 1 % High 0 [place] Interpretation and review of laboratory results Abnormal [place] Lymphocytes (Bld) [#/Vol] 1.70 10*3/uL [place] Lymphocytes/100 WBC (Bld) 21 % Low 24 - 43 % [place] MCH (RBC) [Entitic mass] 28.1 pg 25.2 - 33.5 pg [place] MCHC (RBC) [Mass/Vol] 32.7 g/dL 28.4 - 34.8 g/dL [place] MCV (RBC) [Entitic vol] 85.8 fL 82.6 - 102.9 fL [place] Monocytes (Bld) [#/Vol] 0.54 10*3/uL [place] Monocytes/100 WBC (Bld) 7 % 3 - 12 % [place] Platelet mean volume (Bld) [Entitic vol] 10.7 fL 8.1 - 13.5 fL [place] Platelets (Bld) [#/Vol] NOT REPORTED [place] Platelets (Bld) [#/Vol] 337 10*3/uL [place] RBC (Bld) [#/Vol] 5.20 10*6/uL High 3.95 - 5.1 1 m/uL [place] RBC morphology finding Nom (Bld) NOT REPORTED [place] Segmented neutrophils/100 WBC (Bld) 68 % High 36 - 65 % [place] Segs Absolute 5.83 [place] WBC (Bld) [#/Vol] 8.3 10*3/uL [place] WBC (Bld) [#/Vol] 0.0 10*3/uL 0.0 per 10 0 WBC [place] WBC Morphology NOT REPORTED [place] Comprehensive Metabolic Pane jani 04-08-2020 Albumin [Mass/Vol] 4 g/dL 3.5 - 5.2 g/dL [place] Albumin/Globulin [Mass ratio] 1.7 {ratio} [place] ALP [Catalytic activity/Vol] 66 U/L 35 - 104 U/L [place] ALT [Catalytic activity/Vol] 16 U/L 5 - 33 U/L [place] Anion gap [Moles/Vol] 11 mmol/L 9 - 17 mmol/L [place] AST [Catalytic activity/Vol] 13 U/L <32 [place] Bilirubin Ql (U) 0.28 mg/dL Low 0.3 - 1.2 mg/dL [place] Bun/Cre Ratio NOT REPORTED [place] Calcium [Mass/Vol] 9.1 mg/dL 8.6 - 10. 4 mg/dL [place] Chloride [Moles/Vol] 103 mmol/L 98 - 10 7 mmol/L [place] CO2 [Moles/Vol] 21 mmol/L 20 - 31 mmol/L [place] Creatinine [Mass/Vol] 0.78 mg/dL 0.5 - 0.9 mg/dL [place] GFR >60 >60 mL/min [place] GFR Non- >60 >60 mL/min [place] GFR/1.73 sq M predicted among non-blacks MDRD (S/P/Bld) [Vol rate/Area] [place] Comment on above: Average GFR for 20-2 9 years old: 116 mL/min/1.73sq m Chronic Kidney Disease: <60 mL/min/1.73sq m Kidney failure: <15 mL/min/1.73sq m eGFR calculated using average adult body mass. Additional eGFR calculator available at: http://www.[employer].TeensSuccess/multiple_crcl_2012.htm GFR/1.73 sq M predicted among non-blacks MDRD (S/P/Bld) [Vol rate/Area] NOT REPORTED [place] Glucose [Mass/Vol] 97 mg/dL 70 - 99 mg/dL [place] Interpretation and review of laboratory results Abnormal [place] Potassium [Moles/Vol] 4.4 mmol/L 3.7 - 5.3 mmol/L [place] Protein [Mass/Vol] 6.4 g/dL 6.4 - 8.3 g/dL [place] Sodium [Moles/Vol] 135 mmol/L 135 - 144 mmol/L [place] Urea nitrogen [Mass/Vol] 12 mg/dL 6 - 20 mg/dL [place] Hemoglobin A1Con 04-08-2020 Glucose [Mass/Vol] 111 mg/dL [place] Comment on above: The ADA and AACC rec ommend providing the estimated average glucose result to permit better patient understanding of their HBA1c result. HbA1c (Bld) [Mass fraction] 5.5 % 4 - 6 % [place] Insulin, totalon 04-08-2020 INR Coag (Bld) [Relative time] [place] Comment on above: Fastin.6-24.9 30 min: 20-112 60 min: 29-88 90 min: 26-84 120 min: 22-79 Insulin 27.4 mU/L [place] Insulin Comment NOT REPORTED [place] T3on 04-08-2020 T3, Total 97 ng/dL 60 - 181 ng/dL [place] T3, Uptakeon 04-08-2020 Interpretation and review of laboratory results Abnormal [place] T4 [Mass/Vol] 37.23 % High 22.5 - 37 % [place] T4on 04-08-2020 T4, Total 6.4 ug/dL 4.5 - 10.9 ug/dL [place] TSH without Reflexon 021 TSH Qn 1.39 m[IU]/L [facility] Cult, Bloodon 12-04-2018 Cult, Blood Specimen Description .BLOOD Special Requests RAC 10ML Culture NO GROWTH 5 DAYS Report Status FINAL 12/04/2018 [facility] Comment on above: Performed By: #### T OXOM, HSVG12, CMVM, FA2, MATIAS, TOXOG, HSVM12, CMVG, FA5 #### [address] [address] Supervisor Hanging And Trimming: Geo Mar MD #### CBC, FIB #### [address] [place] [address] Supervisor Hanging And Trimming: Mario Anne MD #### APROTS, APARVP, APROTC, ARUBGM #### [facility] [address] [place] [address] Supervisor Hanging And Trimming: Fernando Valencia MD #### LUPPRO #### [address] [address] Supervisor Hanging And Trimming: Geo Mar MD [address] [place] [address] Supervisor Hanging And Trimming: Mario Anne MD Cult,Bloodon 12-03-2018 Cult,Blood Specimen Description .BLOOD Special Requests LAC 20 ML Culture NO GROWTH 5 DAYS Report Status FINAL 12/03/2018 [facility] Comment on above: Performed By: #### T OXOM, HSVG12, CMVM, FA2, MATIAS, TOXOG, HSVM12, CMVG, FA5 #### [address] [address] Supervisor Hanging And Trimming: Geo Mar MD #### CBC, FIB #### [address] [place] [address] Supervisor Hanging And Trimming: Mario Anne MD #### APROTS, APARVP, APROTC, ARUBGM #### [facility] [address] [place] [address] Supervisor Hanging And Trimming: Fernando Valencia MD #### LUPPRO #### [address] [address] Supervisor Hanging And Trimming: Geo Mar MD [address] [place] [phone] Supervisor Hanging And Trimming: Mario Anne MD CBCon 11-30-2018 Erythrocyte distribution width (RBC) [Ratio] 13.4 % Normal 11.8-14.4 [facility] Comment on above: Performed By: #### T OXOM, HSVG12, CMVM, FA2, MATIAS, TOXOG, HSVM12, CMVG, FA5 #### [address] [address] Supervisor Hanging And Trimming: Geo Mar MD #### CBC, FIB #### [address] [place] [phone] Supervisor Hanging And Trimming: Mario Anne MD #### APROTS, APARVP, APROTC, ARUBGM #### [facility] [address] [place] [address] Supervisor Hanging And Trimming: Fernando Valencia MD #### LUPPRO #### [address] [address] Supervisor Hanging And Trimming: Geo Mar MD [address] [place] [phone] Supervisor Hanging And Trimming: Mario Anne MD Hematocrit (Bld) [Volume fraction] 26.6 % Low 36.3-47.1 [facility] Comment on above: Performed By: #### T OXOM, HSVG12, CMVM, FA2, MATIAS, TOXOG, HSVM12, CMVG, FA5 #### [address] [address] Supervisor Hanging And Trimming: Geo Mar MD #### CBC, FIB #### [address] [place] [phone] Supervisor Hanging And Trimming: Mario Anne MD #### APROTS, APARVP, APROTC, ARUBGM #### [facility] [address] [place], [place] [id number] Supervisor Hanging And Trimming: Fernando Valencia MD #### LUPPRO #### [address] [id number] Supervisor Hanging And Trimming: Geo Mar MD [address] [place] [phone] Supervisor Hanging And Trimming: Mario Anne MD Hemoglobin (Bld) [Mass/Vol] 8.1 g/dL Low 11.9-15.1 [facility] Comment on above: Performed By: #### T OXOM, HSVG12, CMVM, FA2, MATIAS, TOXOG, HSVM12, CMVG, FA5 #### [address] [address] Supervisor Hanging And Trimming: Geo Mar MD #### CBC, FIB #### [address] [place] [phone] Supervisor Hanging And Trimming: Mario Anne MD #### APROTS, APARVP, APROTC, ARUBGM #### [facility] [address] [place] [address] Supervisor Hanging And Trimming: Fernando Valencia MD #### LUPPRO #### [address] [address] Supervisor Hanging And Trimming: Geo Mar MD [address] [place] [phone] Supervisor Hanging And Trimming: Mario Anne MD MCH (RBC) [Entitic mass] 27.2 pg Normal 25.2-33.5 [facility] Comment on above: Performed By: #### T OXOM, HSVG12, CMVM, FA2, MATIAS, TOXOG, HSVM12, CMVG, FA5 #### [address] [address] Supervisor Hanging And Trimming: Geo Mar MD #### CBC, FIB #### [address] [place] [address] Supervisor Hanging And Trimming: Mario Anne MD #### APROTS, APARVP, APROTC, ARUBGM #### [facility] [address] [place] [address] Supervisor Hanging And Trimming: Fernando Valencia MD #### LUPPRO #### [address] [address] Supervisor Hanging And Trimming: Geo Mar MD [address] [place] [phone] Supervisor Hanging And Trimming: Mario Anne MD MCHC (RBC) [Mass/Vol] 30.5 g/dL Normal 28.4-34.8 [facility] Comment on above: Performed By: #### T OXOM, HSVG12, CMVM, FA2, MATIAS, TOXOG, HSVM12, CMVG, FA5 #### [address] [address] Supervisor Hanging And Trimming: Geo Mar MD #### CBC, FIB #### [address] [place], [place] [phone] Supervisor Hanging And Trimming: Mario Anne MD #### APROTS, APARVP, APROTC, ARUBGM #### [facility] [address] [place] [address] Supervisor Hanging And Trimming: Fernando Valencia MD #### LUPPRO #### [address] [address] Supervisor Hanging And Trimming: Geo Mar MD [address] [place], [place] [phone] Supervisor Hanging And Trimming: Mario Anne MD MCV (RBC) [Entitic vol] 89.3 fL Normal 82.6-102.9 [facility] Comment on above: Performed By: #### T OXOM, HSVG12, CMVM, FA2, MATIAS, TOXOG, HSVM12, CMVG, FA5 #### [address] [address] Supervisor Hanging And Trimming: Geo Mar MD #### CBC, FIB #### [address] [place], [place] [phone] Supervisor Hanging And Trimming: Mario Anne MD #### APROTS, APARVP, APROTC, ARUBGM #### [facility] [address] [place] [address] Supervisor Hanging And Trimming: Fernando Valencia MD #### LUPPRO #### [address] [address] Supervisor Hanging And Trimming: Geo Mar MD [address] [place] [phone] Supervisor Hanging And Trimming: Mario Anne MD NRBC Automated 0.0 per 100 WBC Normal 0.0 [facility] Comment on above: Performed By: #### T OXOM, HSVG12, CMVM, FA2, MATIAS, TOXOG, HSVM12, CMVG, FA5 #### [address] [address] Supervisor Hanging And Trimming: Geo Mar MD #### CBC, FIB #### [address] [place], [place] [phone] Supervisor Hanging And Trimming: Mario Anne MD #### APROTS, APARVP, APROTC, ARUBGM #### [facility] [address] [place] [address] Supervisor Hanging And Trimming: Fernando Valencia MD #### LUPPRO #### [address] [phone] Supervisor Hanging And Trimming: Geo Mar MD [address] [place], [facility]83 Supervisor Hanging And Trimming: Mario Anne MD Platelet mean volume (Bld) [Entitic vol] 10.0 fL Normal 8.1-13.5 [facility] Comment on above: Performed By: #### T OXOM, HSVG12, CMVM, FA2, MATIAS, TOXOG, HSVM12, CMVG, FA5 #### [address] [address] Supervisor Hanging And Trimming: Geo Mar MD #### CBC, FIB #### [address] [place] [phone] Supervisor Hanging And Trimming: Mario Anne MD #### APROTS, APARVP, APROTC, ARUBGM #### [facility] [address] [place], [place] [id number] Supervisor Hanging And Trimming: Fernando Valencia MD #### LUPPRO #### [address] [phone] Supervisor Hanging And Trimming: Geo Mar MD [address] [place] [address] Supervisor Hanging And Trimming: Mario Anne MD Platelets (Bld) [#/Vol] 255 10*3/uL Normal 138-453 [facility] Comment on above: Performed By: #### T OXOM, HSVG12, CMVM, FA2, MATIAS, TOXOG, HSVM12, CMVG, FA5 #### [address] [address] Supervisor Hanging And Trimming: Geo Mar MD #### CBC, FIB #### [address] [place] [phone] Supervisor Hanging And Trimming: Mario Anne MD #### APROTS, APARVP, APROTC, ARUBGM #### [facility] [address] [place] [address] Supervisor Hanging And Trimming: Fernando Valencia MD #### LUPPRO #### [address] [address] Supervisor Hanging And Trimming: Geo Mar MD [address] [place] [address] Supervisor Hanging And Trimming: Mario Anne MD RBC (Bld) [#/Vol] 2.98 10*6/uL Low 3.95-5.11 [facility] Comment on above: Performed By: #### T OXOM, HSVG12, CMVM, FA2, MATIAS, TOXOG, HSVM12, CMVG, FA5 #### [address] [address] Supervisor Hanging And Trimming: Geo Mar MD #### CBC, FIB #### [address] [place] [phone] Supervisor Hanging And Trimming: Mario Anne MD #### APROTS, APARVP, APROTC, ARUBGM #### [facility] [address] [place] [address] Supervisor Hanging And Trimming: Fernando Valencia MD #### LUPPRO #### [address] [address] Supervisor Hanging And Trimming: Geo Mar MD [address] [place] [phone] Supervisor Hanging And Trimming: Mario Anne MD WBC (Bld) [#/Vol] 6.3 10*3/uL Normal 3.5-11.3 [facility] Comment on above: Performed By: #### T OXOM, HSVG12, CMVM, FA2, MATIAS, TOXOG, HSVM12, CMVG, FA5 #### [address] [address] Supervisor Hanging And Trimming: Geo Mar MD #### CBC, FIB #### [address] [place] [address] Supervisor Hanging And Trimming: Mario Anne MD #### APROTS, APARVP, APROTC, ARUBGM #### [facility] [address] [place] [address] Supervisor Hanging And Trimming: Fernando Valencia MD #### LUPPRO #### [facility] [address] [place], [place] [phone] Supervisor Hanging And Trimming: Geo Mar MD [facility] [address] [place] [address] Supervisor Hanging And Trimming: Mario Anne MD Erythrocyte distribution width (RBC) [Ratio] 13.4 % 11.8 - 14.4 % [place] Hematocrit (Bld) [Volume fraction] 26.6 % Low 36.3 - 47.1 % [place] Hemoglobin (Bld) [Mass/Vol] 8.1 g/dL Low 11.9 - 15.1 g/dL [place] Interpretation and review of laboratory results Abnormal [place] MCH (RBC) [Entitic mass] 27.2 pg 25.2 - 33.5 pg [place] MCHC (RBC) [Mass/Vol] 30.5 g/dL 28.4 - 34.8 g/dL [place] MCV (RBC) [Entitic vol] 89.3 fL 82.6 - 102.9 fL [place] Platelet mean volume (Bld) [Entitic vol] 10.0 fL 8.1 - 13.5 fL [place] Platelets (Bld) [#/Vol] 255 10*3/uL [place] RBC (Bld) [#/Vol] 2.98 10*6/uL Low 3.95 - 5.1 1 m/uL [place] WBC (Bld) [#/Vol] 6.3 10*3/uL [place] WBC (Bld) [#/Vol] 0.0 10*3/uL 0.0 per 10 0 WBC [place] Comp Metabolic Pr/rfx MGon 0 11-30-2018 (cont.) Normal [facility] Comment on above: Result Comment: Aver age GFR for 20-29 years old: 116 mL/min/1.73sq m Chronic Kidney Disease: <60 mL/min/1.73sq m Kidney failure: <15 mL/min/1.73sq m eGFR calculated using average adult body mass. Additional eGFR calculator available at: http://www.[employer].TeensSuccess/multiple_crcl_2011.htm Performed By: #### T OXOM, HSVG12, CMVM, FA2, MATIAS, TOXOG, HSVM12, CMVG, FA5 #### [facility] [address] [place], [place] [phone] Supervisor Hanging And Trimming: Geo Mar MD #### CBC, FIB #### [facility] [address] [place] [address] [place] [address] Supervisor Hanging And Trimming: Mario Anne MD #### APROTS, APARVP, APROTC, ARUBGM #### [facility] [address] [place] [address] Supervisor Hanging And Trimming: Fernando Valencia MD #### LUPPRO #### [address] [phone] Supervisor Hanging And Trimming: Geo Mar MD [facility] [address] [place] [address] [place] [address] Supervisor Hanging And Trimming: Mario Anne MD Albumin [Mass/Vol] 2.9 g/dL Low 3.5-5.2 [facility] Comment on above: Performed By: #### T OXOM, HSVG12, CMVM, FA2, MATIAS, TOXOG, HSVM12, CMVG, FA5 #### [facility] [employer] [address] [place] [id number] Supervisor Hanging And Trimming: Geo Mar MD #### CBC, FIB #### [facility] [address] [place] [address] [place] [address] Supervisor Hanging And Trimming: Mario Anne MD #### APROTS, APARVP, APROTC, ARUBGM #### [facility] [address] [place] [address] Supervisor Hanging And Trimming: Fernando Valencia MD #### LUPPRO #### [address] [address] Supervisor Hanging And Trimming: Geo Mar MD [address] [place], [place] [phone] Supervisor Hanging And Trimming: Mario Anne MD Albumin/Globulin [Mass ratio] 1.1 {ratio} Normal 1.0-2.5 [facility] Comment on above: Performed By: #### T OXOM, HSVG12, CMVM, FA2, MATIAS, TOXOG, HSVM12, CMVG, FA5 #### [address] [address] Supervisor Hanging And Trimming: Geo Mar MD #### CBC, FIB #### [address] [place], [place] 0999983 Supervisor Hanging And Trimming: Mario Anne MD #### APROTS, APARVP, APROTC, ARUBGM #### [facility] [address] [place], [place] [phone] Supervisor Hanging And Trimming: Fernando Valencia MD #### LUPPRO #### [address] [address] Supervisor Hanging And Trimming: Geo Mar MD [address] [place], [place] [phone] Supervisor Hanging And Trimming: Mario Anne MD Alkaline Phos 41 U/L Normal 35-104 [facility] Comment on above: Performed By: #### T OXOM, HSVG12, CMVM, FA2, MATIAS, TOXOG, HSVM12, CMVG, FA5 #### [address] [address] Supervisor Hanging And Trimming: Geo Mar MD #### CBC, FIB #### [address] [place], [place] [phone] Supervisor Hanging And Trimming: Mario Anne MD #### APROTS, APARVP, APROTC, ARUBGM #### [facility] [address] [place], [place] [id number] Supervisor Hanging And Trimming: Fernando Valencia MD #### LUPPRO #### [address] [address] Supervisor Hanging And Trimming: Geo Mar MD [address] [place], [place] [phone] Supervisor Hanging And Trimming: Mario Anne MD ALT [Catalytic activity/Vol] 17 U/L Normal 5-33 [facility] Comment on above: Performed By: #### T OXOM, HSVG12, CMVM, FA2, MATIAS, TOXOG, HSVM12, CMVG, FA5 #### [address] [address] Supervisor Hanging And Trimming: Geo Mar MD #### CBC, FIB #### [address] [place], [place] [phone] Supervisor Hanging And Trimming: Mario Anne MD #### APROTS, APARVP, APROTC, ARUBGM #### [facility] [address] [place], [place] [id number] Supervisor Hanging And Trimming: Fernando Valencia MD #### LUPPRO #### [address] [address] Supervisor Hanging And Trimming: Geo Mar MD [address] [place] [address] Supervisor Hanging And Trimming: Mario Anne MD Anion gap [Moles/Vol] 14 mmol/L Normal 9-17 [facility] Comment on above: Performed By: #### T OXOM, HSVG12, CMVM, FA2, MATIAS, TOXOG, HSVM12, CMVG, FA5 #### [address] [address] Supervisor Hanging And Trimming: Geo Mar MD #### CBC, FIB #### [address] [place], [place] [phone] Supervisor Hanging And Trimming: Mario Anne MD #### APROTS, APARVP, APROTC, ARUBGM #### [facility] [address] [place] [address] Supervisor Hanging And Trimming: Fernando Valencia MD #### LUPPRO #### [address] [address] Supervisor Hanging And Trimming: Geo Mar MD [address] [place], [place] [phone] Supervisor Hanging And Trimming: Mario Anne MD AST [Catalytic activity/Vol] 14 U/L Normal <32 [facility] Comment on above: Performed By: #### T OXOM, HSVG12, CMVM, FA2, MATIAS, TOXOG, HSVM12, CMVG, FA5 #### [address] [address] Supervisor Hanging And Trimming: Geo Mar MD #### CBC, FIB #### [address] [place], [place] 1152483 Supervisor Hanging And Trimming: Mario Anne MD #### APROTS, APARVP, APROTC, ARUBGM #### [facility] [address] [place] [address] Supervisor Hanging And Trimming: Fernando Valencia MD #### LUPPRO #### [address] [address] Supervisor Hanging And Trimming: Geo Mar MD [address] [place], [place] [phone] Supervisor Hanging And Trimming: Mario Anne MD Bilirubin Ql (U) 0.16 mg/dL Low 0.3-1.2 [facility] Comment on above: Performed By: #### T OXOM, HSVG12, CMVM, FA2, MATIAS, TOXOG, HSVM12, CMVG, FA5 #### [address] [address] Supervisor Hanging And Trimming: Geo Mar MD #### CBC, FIB #### [address] [place], [place] [phone] Supervisor Hanging And Trimming: Mario Anne MD #### APROTS, APARVP, APROTC, ARUBGM #### [facility] [address] [place] [address] Supervisor Hanging And Trimming: Fernando Valencia MD #### LUPPRO #### [address] [address] Supervisor Hanging And Trimming: Geo Mar MD [address] [place] [phone] Supervisor Hanging And Trimming: Mario Anne MD BUN/CRE Ratio 8 Low 9-20 [facility] Comment on above: Performed By: #### T OXOM, HSVG12, CMVM, FA2, MATIAS, TOXOG, HSVM12, CMVG, FA5 #### [address] [address] Supervisor Hanging And Trimming: Geo Mar MD #### CBC, FIB #### [address] [place] [address] Supervisor Hanging And Trimming: Mario Anne MD #### APROTS, APARVP, APROTC, ARUBGM #### [facility] [address] [place] [address] Supervisor Hanging And Trimming: Fernando Valencia MD #### LUPPRO #### [address] [address] Supervisor Hanging And Trimming: Geo Mar MD [address] [place] [phone] Supervisor Hanging And Trimming: Mario Anne MD Calcium [Mass/Vol] 8.4 mg/dL Low 8.6-10.4 [facility] Comment on above: Performed By: #### T OXOM, HSVG12, CMVM, FA2, MATIAS, TOXOG, HSVM12, CMVG, FA5 #### [address] [address] Supervisor Hanging And Trimming: Geo Mar MD #### CBC, FIB #### [facility] [address] [place] [address] [place], [place] [phone] Supervisor Hanging And Trimming: Mario Anne MD #### APROTS, APARVP, APROTC, ARUBGM #### [facility] [address] [place], [place] [id number] Supervisor Hanging And Trimming: Fernando Valencia MD #### LUPPRO #### [address] [address] Supervisor Hanging And Trimming: Geo Mar MD [address] [place] [address] Supervisor Hanging And Trimming: Mario Anne MD Chloride [Moles/Vol] 105 mmol/L Normal 98-107 [facility] Comment on above: Performed By: #### T OXOM, HSVG12, CMVM, FA2, MATIAS, TOXOG, HSVM12, CMVG, FA5 #### [address] [address] Supervisor Hanging And Trimming: Geo Mar MD #### CBC, FIB #### [facility] [address] [place] [address] Supervisor Hanging And Trimming: Mario Anne MD #### APROTS, APARVP, APROTC, ARUBGM #### [facility] [address] [place] [address] Supervisor Hanging And Trimming: Fernando Valencia MD #### LUPPRO #### [address] [address] Supervisor Hanging And Trimming: Geo Mar MD [address] [place] [address] Supervisor Hanging And Trimming: Mario Anne MD CO2 [Moles/Vol] 20 mmol/L Normal 20-31 [facility] Comment on above: Performed By: #### T OXOM, HSVG12, CMVM, FA2, MATIAS, TOXOG, HSVM12, CMVG, FA5 #### [address] [address] Supervisor Hanging And Trimming: Geo Mar MD #### CBC, FIB #### [address] [place] [address] Supervisor Hanging And Trimming: Mario Anne MD #### APROTS, APARVP, APROTC, ARUBGM #### [facility] [address] [place] [address] Supervisor Hanging And Trimming: Fernando Valencia MD #### LUPPRO #### [address] [address] Supervisor Hanging And Trimming: Geo Mar MD [address] [place] [address] Supervisor Hanging And Trimming: Mario Anne MD Creatinine [Mass/Vol] 0.88 mg/dL Normal 0.50-0.90 [facility] Comment on above: Performed By: #### T OXOM, HSVG12, CMVM, FA2, MATIAS, TOXOG, HSVM12, CMVG, FA5 #### [address] [address] Supervisor Hanging And Trimming: Geo Mar MD #### CBC, FIB #### [address] [place] [address] Supervisor Hanging And Trimming: Mario Anne MD #### APROTS, APARVP, APROTC, ARUBGM #### [facility] [address] [place] [address] Supervisor Hanging And Trimming: Fernando Valencia MD #### LUPPRO #### [address] [address] Supervisor Hanging And Trimming: Geo Mar MD [address] [place], [place] [address] Supervisor Hanging And Trimming: Mario Anne MD GFR, Amer >60 Normal >60 [facility] Comment on above: Performed By: #### T OXOM, HSVG12, CMVM, FA2, MATIAS, TOXOG, HSVM12, CMVG, FA5 #### [address] [address] Supervisor Hanging And Trimming: Geo Mar MD #### CBC, FIB #### [address] [place], [place] [address] Supervisor Hanging And Trimming: Mario Anne MD #### APROTS, APARVP, APROTC, ARUBGM #### [facility] [address] [place] [address] Supervisor Hanging And Trimming: Fernando Valencia MD #### LUPPRO #### [address] [address] Supervisor Hanging And Trimming: Geo Mar MD [address] [place], [place] [address]83 Supervisor Hanging And Trimming: Mario Anne MD GFR,non Amer >60 Normal >60 [facility] Comment on above: Performed By: #### T OXOM, HSVG12, CMVM, FA2, MATIAS, TOXOG, HSVM12, CMVG, FA5 #### [address] [address] Supervisor Hanging And Trimming: Geo Mar MD #### CBC, FIB #### [address] [place], [place] [id number] Supervisor Hanging And Trimming: Mario Anne MD #### APROTS, APARVP, APROTC, ARUBGM #### [facility] [address] [place], [place] [id number] Supervisor Hanging And Trimming: Fernando Valencia MD #### LUPPRO #### [address] [address] Supervisor Hanging And Trimming: Geo Mar MD [address] [place], [place] 5877483 Supervisor Hanging And Trimming: Mario Anne MD Glucose [Mass/Vol] 123 mg/dL High 70-99 [facility] Comment on above: Performed By: #### T OXOM, HSVG12, CMVM, FA2, MAITAS, TOXOG, HSVM12, CMVG, FA5 #### [address] [address] Supervisor Hanging And Trimming: Geo Mar MD #### CBC, FIB #### [address] [place], [place] [id number] Supervisor Hanging And Trimming: Mario Anne MD #### APROTS, APARVP, APROTC, ARUBGM #### [facility] [address] [place], [place] [id number] Supervisor Hanging And Trimming: Fenrando Valencia MD #### LUPPRO #### [address] [address] Supervisor Hanging And Trimming: Geo Mar MD [address] [place], [place] 75[address]683 Supervisor Hanging And Trimming: Mario Anne MD Potassium [Moles/Vol] 3.7 mmol/L Normal 3.7-5.3 [facility] Comment on above: Performed By: #### T OXOM, HSVG12, CMVM, FA2, MATIAS, TOXOG, HSVM12, CMVG, FA5 #### [address] [address] Supervisor Hanging And Trimming: Geo Mar MD #### CBC, FIB #### [facility] [address] [place] [address] [place], [place] 05[address]83 Supervisor Hanging And Trimming: Mario Anne MD #### APROTS, APARVP, APROTC, ARUBGM #### [facility] [address] [place], [place] [id number] Supervisor Hanging And Trimming: Fernando Valencia MD #### LUPPRO #### [address] [address] Supervisor Hanging And Trimming: Geo Mar MD [facility] [address] [place] [address] [place], [place] [id number] Supervisor Hanging And Trimming: Mario Anne MD Protein [Mass/Vol] 5.6 g/dL Low 6.4-8.3 [facility] Comment on above: Performed By: #### T OXOM, HSVG12, CMVM, FA2, MATIAS, TOXOG, HSVM12, CMVG, FA5 #### [address] [address] Supervisor Hanging And Trimming: Geo Mar MD #### CBC, FIB #### [address] [place], [place] 09[address]183 Supervisor Hanging And Trimming: Mario Anne MD #### APROTS, APARVP, APROTC, ARUBGM #### [facility] [address] [place], [place] [id number] Supervisor Hanging And Trimming: Fernando Valencia MD #### LUPPRO #### [address] [address] Supervisor Hanging And Trimming: Geo Mar MD [address] [place], [place] 8565383 Supervisor Hanging And Trimming: Mario Anne MD Sodium [Moles/Vol] 139 mmol/L Normal 135-144 [facility] Comment on above: Performed By: #### T OXOM, HSVG12, CMVM, FA2, MATIAS, TOXOG, HSVM12, CMVG, FA5 #### [address] [address] Supervisor Hanging And Trimming: Geo Mar MD #### CBC, FIB #### [address] [place], [place] 13[address]83 Supervisor Hanging And Trimming: Mario Anne MD #### APROTS, APARVP, APROTC, ARUBGM #### [facility] [address] [place], [place] [id number] Supervisor Hanging And Trimming: Fernando Valencia MD #### LUPPRO #### [address] [address] Supervisor Hanging And Trimming: Geo Mar MD [address] [place] [id number] Supervisor Hanging And Trimming: Mario Anne MD Staging: Normal [facility] Comment on above: Result Comment: [...] FA2, MATIAS, TOXOG, HSVM12, CMVG, FA5 #### [address] [address] Supervisor Hanging And Trimming: Geo Mar MD #### CBC, FIB #### [address] [place], [place] 823[address]83 Supervisor Hanging And Trimming: Mario Anne MD #### APROTS, APARVP, APROTC, ARUBGM #### [facility] [address] [place] [address] Supervisor Hanging And Trimming: Fernando Valencia MD #### LUPPRO #### [address] [id number] Supervisor Hanging And Trimming: Geo Mar MD [facility] [address] [place] [address] Supervisor Hanging And Trimming: Mario Anne MD Urea nitrogen [Mass/Vol] 7 mg/dL Normal 6-20 [facility] Comment on above: Performed By: #### T OXOM, HSVG12, CMVM, FA2, MATIAS, TOXOG, HSVM12, CMVG, FA5 #### [facility] [address] [place], [place] [address] Supervisor Hanging And Trimming: Geo Mar MD #### CBC, FIB #### [facility] [address] [place] [address] Supervisor Hanging And Trimming: Mario Anne MD #### APROTS, APARVP, APROTC, ARUBGM #### [facility] [address] [place], [place] [id number] Supervisor Hanging And Trimming: Fernando Valencia MD #### LUPPRO #### [facility] [address] [place], [place] 2108408 Supervisor Hanging And Trimming: Geo Mar MD [facility] [address] [place] [address] [place] [address] Supervisor Hanging And Trimming: Mario Anne MD Comprehensive Metabolic Pane l w/ Reflex to MGon 11-30-2018 Albumin [Mass/Vol] 2.9 g/dL Low 3.5 - 5.2 g/dL [place], [place] Albumin/Globulin [Mass ratio] 1.1 {ratio} [place] ALP [Catalytic activity/Vol] 41 U/L 35 - 104 U/L [place] ALT [Catalytic activity/Vol] 17 U/L 5 - 33 U/L [place] Anion gap [Moles/Vol] 14 mmol/L 9 - 17 mmol/L [place] AST [Catalytic activity/Vol] 14 U/L <32 [place] Bilirubin Ql (U) 0.16 mg/dL Low 0.3 - 1.2 mg/dL [place] Bun/Cre Ratio 8 Low [place], [place] Calcium [Mass/Vol] 8.4 mg/dL Low 8.6 - 10. 4 mg/dL [place] Chloride [Moles/Vol] 105 mmol/L 98 - 10 7 mmol/L [place] CO2 [Moles/Vol] 20 mmol/L 20 - 31 mmol/L [place] Creatinine [Mass/Vol] 0.88 mg/dL 0.5 - 0.9 mg/dL [place] GFR >60 >60 mL/min [place] GFR Non- >60 >60 mL/min [place] Glucose [Mass/Vol] 123 mg/dL High 70 - 99 mg/dL [place] Interpretation and review of laboratory results Abnormal [place] Potassium [Moles/Vol] 3.7 mmol/L 3.7 - 5.3 mmol/L [place] Protein [Mass/Vol] 5.6 g/dL Low 6.4 - 8.3 g/dL [place] Sodium [Moles/Vol] 139 mmol/L 135 - 144 mmol/L [place] Urea nitrogen [Mass/Vol] 7 mg/dL 6 - 20 mg/dL [place] Cult,Urineon 11-30-2018 Cult,Urine Specimen Description .VOIDED URINE Special Requests NOT REPORTED Culture STREPTOCOCCI, BETA HEMOLYTIC GROUP B >[id number] CFU/ML Report Status FINAL 11/30/2018 Normal [facility] Comment on above: Performed By: #### T OXOM, HSVG12, CMVM, FA2, MATIAS, TOXOG, HSVM12, CMVG, FA5 #### [facility] [address] [place] [address] Supervisor Hanging And Trimming: Geo Mar MD #### CBC, FIB #### [facility] [address] [place] [address] Supervisor Hanging And Trimming: Mario Anne MD #### APROTS, APARVP, APROTC, ARUBGM #### [facility] [address] [place] [address] Supervisor Hanging And Trimming: Fernando Valencia MD #### LUPPRO #### [address] [place], [place] 9028408 Supervisor Hanging And Trimming: Geo Mar MD [facility] [address] [place] [address] [place] [address] Supervisor Hanging And Trimming: Mario Anne MD Metabolic Panelon 11-30-2018 GFR/1.73 sq M predicted among non-blacks MDRD (S/P/Bld) [Vol rate/Area] [place], [place] Comment on above: Stage 1: Some [...] body mass. Additional eGFR calculator available at: http://[email or web address]/multiple_crcl_2012.htm Vancomycin Troughon 12-01-19 19 Vancomycin Trough 22.3 ug/mL Critically high 10.0-20.0 [facility] Comment on above: Result Comment: High er trough serum vancomycin concentrations of 15-20 ug/mL are recommended for complicated infections such as bacteremia, endocarditis, osteomyelitis, meningitis, and hospital acquired pneumonia. Performed By: #### T OXOM, HSVG12, CMVM, FA2, MATIAS, TOXOG, HSVM12, CMVG, FA5 #### [facility] [address] [place], [place] 5994708 Supervisor Hanging And Trimming: Geo Mar MD #### CBC, FIB #### [facility] [address] [place] [address] Supervisor Hanging And Trimming: Mario Anne MD #### APROTS, APARVP, APROTC, ARUBGM #### [facility] [address] [place] [address] Supervisor Hanging And Trimming: Fernando Valencia MD #### LUPPRO #### [address] [address] Supervisor Hanging And Trimming: Geo Mar MD [address] [place], [place] 6488483 Supervisor Hanging And Trimming: Mario Anne MD Date last dose, NOT REPORTED Normal [facility] Comment on above: Performed By: #### T OXOM, HSVG12, CMVM, FA2, MATIAS, TOXOG, HSVM12, CMVG, FA5 #### [address] [address] Supervisor Hanging And Trimming: Geo Mar MD #### CBC, FIB #### [address] [place], [place] 557[address]83 Supervisor Hanging And Trimming: Mario Anne MD #### APROTS, APARVP, APROTC, ARUBGM #### [facility] [address] [place] [address] Supervisor Hanging And Trimming: Fernando Valencia MD #### LUPPRO #### [address] [address] Supervisor Hanging And Trimming: Geo Mar MD [address] [place], [place] 1333183 Supervisor Hanging And Trimming: Mario Anne MD Dose amount, NOT REPORTED Normal [facility] Comment on above: Performed By: #### T OXOM, HSVG12, CMVM, FA2, MATIAS, TOXOG, HSVM12, CMVG, FA5 #### [address] [address] Supervisor Hanging And Trimming: Geo Mar MD #### CBC, FIB #### [address] [place] [address] Supervisor Hanging And Trimming: Mario Anne MD #### APROTS, APARVP, APROTC, ARUBGM #### [facility] [address] [place], [place] [id number] Supervisor Hanging And Trimming: Fernando Valencia MD #### LUPPRO #### [address] [address] Supervisor Hanging And Trimming: Geo Mar MD [address] [place], [place] 3304883 Supervisor Hanging And Trimming: Mario Anne MD Time last dose, NOT REPORTED Normal [facility] Comment on above: Performed By: #### T OXOM, HSVG12, CMVM, FA2, MATIAS, TOXOG, HSVM12, CMVG, FA5 #### [address] [address] Supervisor Hanging And Trimming: Geo Mar MD #### CBC, FIB #### [address] [place] [address] Supervisor Hanging And Trimming: Mario Anne MD #### APROTS, APARVP, APROTC, ARUBGM #### [facility] [address] [place], [place] [id number] Supervisor Hanging And Trimming: Fernando Valencia MD #### LUPPRO #### [address] [address] Supervisor Hanging And Trimming: Geo Mar MD [address] [place] [address] Supervisor Hanging And Trimming: Mario Anne MD Vancomycin, troughon 019 Interpretation and review of laboratory results Abnormal [place] Vancomycin Tr 22.3 ug/mL Critically high 10 - 20 ug/mL [place] Comment on above: Higher trough serum vancomycin concentrations of 15-20 ug/mL are recommended for complicated infections such as bacteremia, endocarditis, osteomyelitis, meningitis, and hospital acquired pneumonia. Vancomycin Trough Date last dose NOT REPORTED [place] Vancomycin Trough Dose amount [facility]ED [facility] Time last dose NOT REPORTED [facility] CBCon 11-29-2018 Erythrocyte distribution width (RBC) [Ratio] 13.4 % Normal 11.8-14.4 [facility] Comment on above: Performed By: #### T YS #### [address] [place] [address] Supervisor Hanging And Trimming: Mario Anne MD Hematocrit (Bld) [Volume fraction] 27.2 % Low 36.3-47.1 [facility] Comment on above: Performed By: #### T YS #### [address] [place] [address] Supervisor Hanging And Trimming: Mario Anne MD Hemoglobin (Bld) [Mass/Vol] 8.3 g/dL Low 11.9-15.1 [facility] Comment on above: Performed By: #### T YS #### [address] [place] [address] Supervisor Hanging And Trimming: Mario Anne MD MCH (RBC) [Entitic mass] 27.9 pg Normal 25.2-33.5 [facility] Comment on above: Performed By: #### T YS #### [address] [place] [address] Supervisor Hanging And Trimming: Mario Anne MD MCHC (RBC) [Mass/Vol] 30.5 g/dL Normal 28.4-34.8 [facility] Comment on above: Performed By: #### T YS #### [address] [place] [address] Supervisor Hanging And Trimming: Mario Anne MD MCV (RBC) [Entitic vol] 91.3 fL Normal 82.6-102.9 [facility] Comment on above: Performed By: #### T YS #### [address] [place] [address] Supervisor Hanging And Trimming: Mario Anne MD NRBC Automated 0.0 per 100 WBC Normal 0.0 [facility] Comment on above: Performed By: #### T YS #### [facility] [address] [place] [address] Supervisor Hanging And Trimming: Mario Anne MD Platelet mean volume (Bld) [Entitic vol] 9.6 fL Normal 8.1-13.5 [facility] Comment on above: Performed By: #### T YS #### [facility] [address] [place] [address] Supervisor Hanging And Trimming: Mario Anne MD Platelets (Bld) [#/Vol] 243 10*3/uL Normal 138-453 [facility] Comment on above: Performed By: #### T YS #### [facility] [address] [place] [address] Supervisor Hanging And Trimming: Mario Anne MD RBC (Bld) [#/Vol] 2.98 10*6/uL Low 3.95-5.11 [facility] Comment on above: Performed By: #### T YS #### [facility] [address] [place] [address] Supervisor Hanging And Trimming: Mario Anne MD WBC (Bld) [#/Vol] 16.6 10*3/uL High 3.5-11.3 [facility] Comment on above: Performed By: #### T YS #### [facility] [address] [place] [id number] Supervisor Hanging And Trimming: Mario Anne MD Erythrocyte distribution width (RBC) [Ratio] 13.4 % 11.8 - 14.4 % [place] Hematocrit (Bld) [Volume fraction] 27.2 % Low 36.3 - 47.1 % [place] Hemoglobin (Bld) [Mass/Vol] 8.3 g/dL Low 11.9 - 15.1 g/dL [place] Interpretation and review of laboratory results Abnormal [place] MCH (RBC) [Entitic mass] 27.9 pg 25.2 - 33.5 pg [place] MCHC (RBC) [Mass/Vol] 30.5 g/dL 28.4 - 34.8 g/dL [place] MCV (RBC) [Entitic vol] 91.3 fL 82.6 - 102.9 fL [place] Platelet mean volume (Bld) [Entitic vol] 9.6 fL 8.1 - 13.5 fL [place] Platelets (Bld) [#/Vol] 243 10*3/uL [place] RBC (Bld) [#/Vol] 2.98 10*6/uL Low 3.95 - 5.1 1 m/uL [place] WBC (Bld) [#/Vol] 16.6 10*3/uL High [place] WBC (Bld) [#/Vol] 0.0 10*3/uL 0.0 per 10 0 WBC [place] CONSULTATIONon 11-29-[address] [address] CONSULTATION PATIENT NAME: DEION CUMMINGS : 1995 MED REC NO: [id number] ROOM: 0328 ACCOUNT NO: [id number] ADMIT DATE: 11/28/2018 PROVIDER: Jennifer Hedrick CONSULT [...] in this matter. JENNIFER HEDRICK VANNA/[email or web address] Doc#: [id number] CC: [facility] Comp Metabolic Pr/rfx MGon 0 11-29-2018 (cont.) [facility] Comment on above: Result Comment: Aver age GFR for 20-29 years old: 116 mL/min/1.73sq m Chronic Kidney Disease: <60 mL/min/1.73sq m Kidney failure: <15 mL/min/1.73sq m eGFR calculated using average adult body mass. Additional eGFR calculator available at: http://[email or web address].com/multiple_crcl_2012.htm Performed By: #### T YS #### [facility] [address] [place] [address] Supervisor Hanging And Trimming: Mario Anne MD Albumin [Mass/Vol] 3.1 g/dL Low 3.5-5.2 [facility] Comment on above: Performed By: #### T YS #### [facility] [address] [place], [place] 1275083 Supervisor Hanging And Trimming: Mario Anne MD Albumin/Globulin [Mass ratio] 1.2 {ratio} Normal 1.0-2.5 [facility] Comment on above: Performed By: #### T YS #### [facility] [address] [place], [place] 3839483 Supervisor Hanging And Trimming: Mario Anne MD Alkaline Phos 38 U/L Normal 35-104 [facility] Comment on above: Performed By: #### T YS #### [facility] [address] [place], [place] 0846583 Supervisor Hanging And Trimming: Mario Anne MD ALT [Catalytic activity/Vol] 15 U/L Normal 5-33 [facility] Comment on above: Performed By: #### T YS #### [facility] [address] [place], [place] 0559183 Supervisor Hanging And Trimming: Mario Anne MD Anion gap [Moles/Vol] 13 mmol/L Normal 9-17 [facility] Comment on above: Performed By: #### T YS #### [facility] [address] [place], [place] 9434783 Supervisor Hanging And Trimming: Mario Anne MD AST [Catalytic activity/Vol] 11 U/L Normal <32 [facility] Comment on above: Performed By: #### T YS #### [facility] [address] [place], [place] 1150683 Supervisor Hanging And Trimming: Mario Anne MD Bilirubin Ql (U) 0.56 mg/dL Normal 0.3-1.2 [facility] Comment on above: Performed By: #### T YS #### [facility] [address] [place], [place] 8426083 Supervisor Hanging And Trimming: Mario Anne MD BUN/CRE Ratio 9 Normal 9-20 [facility] Comment on above: Performed By: #### T YS #### [facility] [address] [place], [place] 8183183 Supervisor Hanging And Trimming: Mario Anne MD Calcium [Mass/Vol] 8.5 mg/dL Low 8.6-10.4 [facility] Comment on above: Performed By: #### T YS #### [facility] [address] [place], [place] 3475683 Supervisor Hanging And Trimming: Mario Anne MD Chloride [Moles/Vol] 101 mmol/L Normal 98-107 [facility] Comment on above: Performed By: #### T YS #### [facility] [address] [place], [place] 6282083 Supervisor Hanging And Trimming: Mario Anne MD CO2 [Moles/Vol] 20 mmol/L Normal 20-31 [facility] Comment on above: Performed By: #### T YS #### [facility] [address] [place], [place] 0720983 Supervisor Hanging And Trimming: Mario Anne MD Creatinine [Mass/Vol] 0.80 mg/dL Normal 0.50-0.90 [facility] Comment on above: Performed By: #### T YS #### [facility] [address] [place], [place] 0482383 Supervisor Hanging And Trimming: Mario Anne MD GFR, Amer >60 Normal >60 [facility] Comment on above: Performed By: #### T YS #### [facility] [address] [place], [place] 4195583 Supervisor Hanging And Trimming: Mario Anne MD GFR,non Amer >60 Normal >60 [facility] Comment on above: Performed By: #### T YS #### [facility] [address] [place], [place] 1859483 Supervisor Hanging And Trimming: Mario Anne MD Glucose [Mass/Vol] 121 mg/dL High 70-99 [facility] Comment on above: Performed By: #### T YS #### [facility] [address] [place], [place] 9544083 Supervisor Hanging And Trimming: Mario Anne MD Potassium [Moles/Vol] 3.4 mmol/L Low 3.7-5.3 [facility] Comment on above: Performed By: #### T YS #### [facility] [address] [place], [place] 7638483 Supervisor Hanging And Trimming: Mario Anne MD Protein [Mass/Vol] 5.7 g/dL Low 6.4-8.3 [facility] Comment on above: Performed By: #### T YS #### [facility] [address] [place], [place] 6231383 Supervisor Hanging And Trimming: Mario Anne MD Sodium [Moles/Vol] 134 mmol/L Low 135-144 [facility] Comment on above: Performed By: #### T YS #### [facility] [address] [place], [place] 5661383 Supervisor Hanging And Trimming: Mario Anne MD Staging: Normal [facility] Comment on above: Result Comment: Stag e 1: Some kidney damage normal GFR Stage 2: Mild kidney damage GFR 60-89 Stage 3: Moderate kidney damage GFR 30-59 Stage 4: Severe kidney damage GFR 15-29 Stage 5: Severe kidney damage GFR <15 ESRD - chronic treatment by dialysis or transplant Performed By: #### T YS #### [facility] [address] [place], [place] 2364083 Supervisor Hanging And Trimming: Mario Anne MD Urea nitrogen [Mass/Vol] 7 mg/dL Normal 6-20 [facility] Comment on above: Performed By: #### T YS #### [facility] [address] [place], [place] 4619083 Supervisor Hanging And Trimming: Mario Anne MD Comprehensive Metabolic Pane l w/ Reflex to MGon 11-29-2018 Albumin [Mass/Vol] 3.1 g/dL Low 3.5 - 5.2 g/dL [place] Albumin/Globulin [Mass ratio] 1.2 {ratio} [place] ALP [Catalytic activity/Vol] 38 U/L 35 - 104 U/L [place] ALT [Catalytic activity/Vol] 15 U/L 5 - 33 U/L [place] Anion gap [Moles/Vol] 13 mmol/L 9 - 17 mmol/L [place] AST [Catalytic activity/Vol] 11 U/L <32 [place] Bilirubin Ql (U) 0.56 mg/dL 0.3 - 1.2 mg/dL [place] Bun/Cre Ratio 9 [place] Calcium [Mass/Vol] 8.5 mg/dL Low 8.6 - 10. 4 mg/dL [place] Chloride [Moles/Vol] 101 mmol/L 98 - 10 7 mmol/L [place] CO2 [Moles/Vol] 20 mmol/L 20 - 31 mmol/L [place] Creatinine [Mass/Vol] 0.8 mg/dL 0.5 - 0.9 mg/dL [place] GFR >60 >60 mL/min [place] GFR Non- >60 >60 mL/min [place] Glucose [Mass/Vol] 121 mg/dL High 70 - 99 mg/dL [place] Interpretation and review of laboratory results Abnormal [place] Potassium [Moles/Vol] 3.4 mmol/L Low 3.7 - 5.3 mmol/L [place] Protein [Mass/Vol] 5.7 g/dL Low 6.4 - 8.3 g/dL [place] Sodium [Moles/Vol] 134 mmol/L Low 135 - 144 mmol/L [place], [place] Urea nitrogen [Mass/Vol] 7 mg/dL 6 - 20 mg/dL [place] Factor II Activityon 019 Factor II Activity 120 % Normal 50-150 [facility] Comment on above: Performed By: #### C BC #### [facility] [address] [place], [place] [id number] Supervisor Hanging And Trimming: Mario Anne MD Factor V Activityon 11-30-19 19 Factor V Activity 120 % Normal 50-150 [facility] Comment on above: Performed By: #### C BC #### [facility] [address] [place] [id number] Supervisor Hanging And Trimming: Mario Anne MD Lupus Anticoagulanton 2018 Dilute Alexandr Viper Negative Normal NLUP [facility] Comment on above: Performed By: #### C BC #### [facility] [address] [place] [id number] Supervisor Hanging And Trimming: Mario Anne MD Magnesiumon 11-29-2018 Magnesium [Mass/Vol] 1.9 mg/dL Normal 1.6-2.6 [facility] Comment on above: Performed By: #### T YS #### [facility] [address] [place] [id number] Supervisor Hanging And Trimming: Mario Anne MD Magnesium [Mass/Vol] 1.9 mg/dL 1.6 - 2 .6 mg/dL [place] Metabolic Panelon 11-29-2018 GFR/1.73 sq M predicted among non-blacks MDRD (S/P/Bld) [Vol rate/Area] [place], [place] Comment on above: Average GFR for 20-2 9 years old: 116 mL/min/1.73sq m Chronic Kidney Disease: <60 mL/min/1.73sq m Kidney failure: <15 mL/min/1.73sq m eGFR calculated using average adult body mass. Additional eGFR calculator available at: http://www.[employer].TeensSuccess/multiple_crcl_2012.htm Stage 1: Some kidney damage normal GFR [...] Nba Thomas MD 11/29/18 Final result Normal [facility] No retained products demonstrated. [facility] [place] Incoming Radiant Results From [employer] - 11/29/2018 12:12 AM EDT EXAMINATION: PELVIC ULTRASOUND 11/28/2018 TECHNIQUE: Transabdominal pelvic ultrasound COMPARISON: None HISTORY: ORDERING SYSTEM PROVIDED HISTORY: Rule out retained products of conception FINDINGS: No intrauterine gestational sac is identified. The endometrium measures up to 6.7 mm in thickness. No retained products of conception are demonstrated. IMPRESSION: No retained products demonstrated. [facility] [place] EXAMINATION: PELVIC ULTRASOUND 11/28/2018 TECHNIQUE: Transabdominal pelvic ultrasound COMPARISON: None HISTORY: ORDERING SYSTEM PROVIDED HISTORY: Rule out retained products of conception FINDINGS: No intrauterine gestational sac is identified. The endometrium measures up to 6.7 mm in thickness. No retained products of conception are demonstrated. [facility] [place] VL DUP LOWER EXTREMITY VENOU S BILATERALon 11-29-2018 [place], pn Incoming Cardio Results From [employer] - 11/29/2018 3:57 PM EDT [facility] Vascular Lower Extremities DVT Study Procedure Patient Name TOMY Date of Study 11/29/2018 DEION L Date of 1995 Gender Female Age 23 year(s) Race Room Number 0328 Corporate ID [id number] # Patient Acct [id number] # MR # [id number] [employer] Technician CARLOS Carey Interpreting Physician Matt Mayer MD [...] !Phasic! ! ! + ------+------+------+- --------- + [facility] Vascular Lower Extremities DVT Study Procedure Patient Name TOMY Date of Study 11/29/2018 DEION Lopez Date of 1995 Gender Female Age 23 year(s) Race Room Number 0328 Corporate ID [id number] # Patient Acct [id number] # MR # [id number] [employer] Technician CARLOS Carey Interpreting Physician Matt Mayer MD [...] !Popliteal !Phasic! ! ! + ------+------+------+- ---------+ [facility] [place] APTTon 11-28-2018 aPTT Coag (Bld) [Time] 21.5 s Low 23.2-34.4 [facility] Comment on above: Performed By: #### L IP, CMPX, PT, CDP, PTT ####[facility] [place] [address] [facility] Director: Mario Anne MD aPTT Coag (Bld) [Time] 21.[address] [facility] [employer] [place], [employer] Blood gas, venouson 11-29-19 19 Marco Test NOT REPORTED [facility] - [place] aPTT Coag (Bld) [Time] NOT REPORTED [facility] Carboxyhemoglobin 0 - 5 % [facility]- [place] FIO2 NOT REPORTED [facility] [place], [place] HCO3, Venous 20.5 mmol/L Low 24 - 30 mmol/L [facility] [place] Interpretation and review of laboratory results Abnormal [facility] [place], [place] Methemoglobin NOT REPORTED 0 - 1.9 % [facility] [place] Mode NOT REPORTED [place], [place] Negative Base Excess, [place] 2.9 mmol/L High 0 - 2 mmol/L [place] NOTIFICATION NOT REPORTED [place] NOTIFICATION TIME NOT REPORTED [place] O2 Device/Flow/% NOT REPORTED [place] Oxygen saturation in Blood 40.2 % Low 60 - 85 % [place] Oxyhemoglobin NOT REPORTED 95 - 98 % [place] pCO2, [place] 31.9 Low [place] pCO2, [place], Temp Adj NOT REPORTED [place] Peep/Cpap NOT REPORTED [place] pH, [place] 7.425 High [place], [place] pH, [place], Temp Adj NOT REPORTED [place] pO2, [place] 22.2 Low [place] pO2, [place], Temp Adj NOT REPORTED [place], [place] Positive Base Excess, [place] NOT REPORTED 0 - 2 mmol/L [place] PSV NOT REPORTED [place] Pt. Position NOT REPORTED [place] Sample Site NOT REPORTED [place], [place] Set Rate NOT REPORTED [place] Text for Respiratory NOT REPORTED [place] Total Hb NOT REPORTED 12 - 16 g/dl [place] Total Rate NOT REPORTED [place] VT NOT REPORTED [place] CBC auto differentialon 11-19 Basophils (Bld) [#/Vol] 0.03 10*3/uL [place] Basophils/100 WBC (Bld) 0 % 0 - 2 % [place] Differential Type NOT REPORTED [place] Eosinophils (Bld) [#/Vol] 0.17 10*3/uL [place] Eosinophils/100 WBC (Bld) 1 % 1 - 4 % [place] Erythrocyte distribution width (RBC) [Ratio] 13.3 % 11.8 - 14.4 % [place] Hematocrit (Bld) [Volume fraction] 30.5 % Low 36.3 - 47.1 % [place] Hemoglobin (Bld) [Mass/Vol] 9.6 g/dL Low 11.9 - 15.1 g/dL [place] Immature granulocytes (Bld) [#/Vol] 1 % High 0 [place] Immature granulocytes (Bld) [#/Vol] 0.09 10*3/uL [place] Interpretation and review of laboratory results Abnormal [place] Lymphocytes (Bld) [#/Vol] 0.80 10*3/uL Low [place] Lymphocytes/100 WBC (Bld) 5 % Low 24 - 43 % [place] MCH (RBC) [Entitic mass] 28.1 pg 25.2 - 33.5 pg [place] MCHC (RBC) [Mass/Vol] 31.5 g/dL 28.4 - 34.8 g/dL [place] MCV (RBC) [Entitic vol] 89.2 fL 82.6 - 102.9 fL [place] Monocytes (Bld) [#/Vol] 0.65 10*3/uL [place] Monocytes/100 WBC (Bld) 4 % 3 - 12 % [place] Platelet mean volume (Bld) [Entitic vol] 9.9 fL 8.1 - 13.5 fL [place] Platelets (Bld) [#/Vol] 305 10*3/uL [place] Platelets (Bld) [#/Vol] NOT REPORTED [place] RBC (Bld) [#/Vol] 3.42 10*6/uL Low 3.95 - 5.1 1 m/uL [place] RBC morphology finding Nom (Bld) NOT REPORTED [place] Segmented neutrophils/100 WBC (Bld) 89 % High 36 - 65 % [place] Segs Absolute 15.13 High [place] WBC (Bld) [#/Vol] 16.9 10*3/uL [place] WBC (Bld) [#/Vol] 0.0 10*3/uL 0.0 per 10 0 WBC [place] WBC Morphology NOT REPORTED [place], [place] CBC with Diffon 11-28-2018 Abs. Basophil 0.03 k/uL Normal 0.00-0.20 [facility] Comment on above: Performed By: #### L IP, CMPX, PT, CDP, PTT ####[address] [place] [address]([facility])[phone] Director: Mario Anne MD Abs.Imm.Granulocyte 0.09 k/uL Normal 0.00-0.30 [facility] Comment on above: Performed By: #### L IP, CMPX, PT, CDP, PTT ####[address] [place], [place] [id number] Lab Director: Mario Anne MD Abs.Neutrophil (Seg) 15.13 k/uL High 1.50-8.10 [facility] Comment on above: Performed By: #### L IP, CMPX, PT, CDP, PTT ####[address] , [place] [id number] lab Director: Mario Anne MD Basophils/100 WBC (Bld) 0 % Normal 0-2 [facility] Comment on above: Performed By: #### L IP, CMPX, PT, CDP, PTT ####[address] [place] [address] Lab Director: Mario Anne MD Eosinophils (Bld) [#/Vol] 0.17 10*3/uL Normal 0.00-0.44 [facility] Comment on above: Performed By: #### L IP, CMPX, PT, CDP, PTT ####[address] [place], [place] 529[address]83 Lab Director: Mario Anne MD Eosinophils/100 WBC (Bld) 1 % Normal 1-4 [facility] Comment on above: Performed By: #### L IP, CMPX, PT, CDP, PTT ####[address] , [place] [address])[phone] Director: Mario Anne MD Erythrocyte distribution width (RBC) [Ratio] 13.3 % Normal 11.8-14.4 [facility] Comment on above: Performed By: #### L IP, CMPX, PT, CDP, PTT ####[address] , [place] [address])[phone] Director: Mario Anne MD Hematocrit (Bld) [Volume fraction] 30.5 % Low 36.3-47.1 [facility] Comment on above: Performed By: #### L IP, CMPX, PT, CDP, PTT ####[address] , [facility]84([facility])[phone] Director: Mario Anne MD Hemoglobin (Bld) [Mass/Vol] 9.6 g/dL Low 11.9-15.1 [facility] Comment on above: Performed By: #### L IP, CMPX, PT, CDP, PTT ####[address] , [place] [address])[phone] Director: Mario Anne MD Immature granulocytes (Bld) [#/Vol] 1 % High 0 [facility] Comment on above: Performed By: #### L IP, CMPX, PT, CDP, PTT ####[address] , [place] [address])[phone] Director: Mario Anne MD Lymphocytes (Bld) [#/Vol] 0.80 10*3/uL Low 1.10-3.70 [facility] Comment on above: Performed By: #### L IP, CMPX, PT, CDP, PTT ####[address] , [facility]06([facility])[phone] Director: Mario Anne MD Lymphocytes/100 WBC (Bld) 5 % Low 24-43 [facility] Comment on above: Performed By: #### L IP, CMPX, PT, CDP, PTT ####[address] [place] [address]([facility])[phone] Director: Mario Anne MD MCH (RBC) [Entitic mass] 28.1 pg Normal 25.2-33.5 [facility] Comment on above: Performed By: #### L IP, CMPX, PT, CDP, PTT ####[address] , [facility]75([facility])[phone] Director: Mario Anne MD MCHC (RBC) [Mass/Vol] 31.5 g/dL Normal 28.4-34.8 [facility] Comment on above: Performed By: #### L IP, CMPX, PT, CDP, PTT ####[address] , [facility]19([facility])[phone] Director: Mario Anne MD MCV (RBC) [Entitic vol] 89.2 fL Normal 82.6-102.9 [facility] Comment on above: Performed By: #### L IP, CMPX, PT, CDP, PTT ####[address] , [facility]62([facility])[phone] Director: Mario Anne MD Monocytes (Bld) [#/Vol] 0.65 10*3/uL Normal 0.10-1.20 [facility] Comment on above: Performed By: #### L IP, CMPX, PT, CDP, PTT ####[address] , [facility]83 Lab Director: Mario Anne MD Monocytes/100 WBC (Bld) 4 % Normal 3-12 [facility] Comment on above: Performed By: #### L IP, CMPX, PT, CDP, PTT ####[address] , [place] [id number] Lab Director: Mario Anne MD Neutrophil (Seg) 89 % High 36-65 [facility] Comment on above: Performed By: #### L IP, CMPX, PT, CDP, PTT ####[address] , [place] [phone] Lab Director: Mario Anne MD NRBC Automated 0.0 per 100 WBC Normal 0.0 [facility] Comment on above: Performed By: #### L IP, CMPX, PT, CDP, PTT ####[address] , [facility]83 Lab Director: Mario Anne MD Platelet mean volume (Bld) [Entitic vol] 9.9 fL Normal 8.1-13.5 [facility] Comment on above: Performed By: #### L IP, CMPX, PT, CDP, PTT ####[address] , [facility]25([facility])[phone] Director: Mario Anne MD Platelets (Bld) [#/Vol] 305 10*3/uL Normal 138-453 [facility] Comment on above: Performed By: #### L IP, CMPX, PT, CDP, PTT ####[address] , [facility]08([facility])[phone] Director: Mario Anne MD RBC (Bld) [#/Vol] 3.42 10*6/uL Low 3.95-5.11 [facility] Comment on above: Performed By: #### L IP, CMPX, PT, CDP, PTT ####[address] , [facility]83[facility])[phone] Director: Mario Anne MD WBC (Bld) [#/Vol] 16.9 10*3/uL High 3.5-11.3 [facility] Comment on above: Performed By: #### L IP, CMPX, PT, CDP, PTT ####[address] , [place] [id number] Lab Director: Mario Anne MD Auto Diff Performed NOT REPORTED Normal [facility] Comment on above: Performed By: #### L IP, CMPX, PT, CDP, PTT ####[address] [place] [address] Lab Director: Mario Anne MD Platelets (Bld) [#/Vol] NOT REPORTED Normal [facility] Comment on above: Performed By: #### L IP, CMPX, PT, CDP, PTT ####[address] [place] [address] Lab Director: Mario Anne MD RBC morphology finding Nom (Bld) NOT REPORTED Normal [facility] Comment on above: Performed By: #### L IP, CMPX, PT, CDP, PTT ####[address] [place] [address] Lab Director: Mario Anne MD WBC Morphology NOT REPORTED Normal [facility] Comment on above: Performed By: #### L IP, CMPX, PT, CDP, PTT ####[address] [place] [address] Lab Director: Mario Anne MD CT ABDOMEN [...] Graeme Stewart MD 11/28/18 Final result Normal [facility] EXAMINATION: CT OF T ABDOMEN AND PELVIS [...] No lymphadenopathy within the abdomen or pelvis. [place] No evidence for acut e intra-abdominal or intrapelvic pathology. No bowel obstruction or inflammation. No free intraperitoneal air or fluid. No evidence for urinary obstruction. Normal appendix. 2.5 cm exophytic lesion arising from the interpolar region of the right kidney, indeterminate. Further evaluation with renal ultrasound is recommended on a nonemergent/outpatient basis. [place], pn Incoming Radiant Results From [employer] - 11/28/2018 8:59 PM EDT EXAMINATION: CT [...] ultrasound is recommended on a nonemergent/outpatient basis. [facility] Comp Metabolic Pr/rfx MGon 0 11-28-2018 AST [Catalytic activity/Vol] 23 U/L Normal <32 [facility] Comment on above: Performed By: #### L IP, CMPX, PT, CDP, PTT ####[facility] [place] [address] Lab Director: Mario Anne MD (cont.) [facility] Comment on above: Result Comment: Aver age GFR for 20-29 years old: 116 mL/min/1.73sq m Chronic Kidney Disease: <60 mL/min/1.73sq m Kidney failure: <15 mL/min/1.73sq m eGFR calculated using average adult body mass. Additional eGFR calculator available at: http://www.[employer].TeensSuccess/multiple_crcl_2012.htm Performed By: #### L IP, CMPX, PT, CDP, PTT ####[facility] [place] [address] lab Director: Mario Anne MD Albumin [Mass/Vol] 3.7 g/dL Normal 3.5-5.2 [facility] Comment on above: Performed By: #### L IP, CMPX, PT, CDP, PTT ####[address] [id number] [facility] Director: Mario Anne MD Albumin/Globulin [Mass ratio] 1.2 {ratio} Normal 1.0-2.5 [facility] Comment on above: Performed By: #### L IP, CMPX, PT, CDP, PTT ####[address] , [place] [phone] lab Director: Mario Anne MD Alkaline Phos 47 U/L Normal 35-104 [facility] Comment on above: Performed By: #### L IP, CMPX, PT, CDP, PTT ####[address] , [place] [id number] lab Director: Mario Anne MD ALT [Catalytic activity/Vol] 18 U/L Normal 5-33 [facility] Comment on above: Performed By: #### L IP, CMPX, PT, CDP, PTT ####[address] , [place] [phone] lab Director: Mario Anne MD Anion gap [Moles/Vol] 16 mmol/L Normal 9-17 [facility] Comment on above: Performed By: #### L IP, CMPX, PT, CDP, PTT ####[address] , [place] 129[address]83 lab Director: Mario Anne MD Bilirubin Ql (U) 0.33 mg/dL Normal 0.3-1.2 [facility] Comment on above: Performed By: #### L IP, CMPX, PT, CDP, PTT ####[address] , [place] 975[address] lab Director: Mario Anne MD BUN/CRE Ratio 10 Normal 9-20 [facility] Comment on above: Performed By: #### L IP, CMPX, PT, CDP, PTT ####[address] , [place] [id number] lab Director: Mario Anne MD Calcium [Mass/Vol] 9.1 mg/dL Normal 8.6-10.4 [facility] Comment on above: Performed By: #### L IP, CMPX, PT, CDP, PTT ####[address] , [place] [id number] lab Director: Mario Anne MD Chloride [Moles/Vol] 102 mmol/L Normal 98-107 [facility] Comment on above: Performed By: #### L IP, CMPX, PT, CDP, PTT ####[address] , [place] [id number] lab Director: Mario Anne MD CO2 [Moles/Vol] 20 mmol/L Normal 20-31 [facility] Comment on above: Performed By: #### L IP, CMPX, PT, CDP, PTT ####[address] , [place] [address] lab Director: Mario Anne MD Creatinine [Mass/Vol] 0.81 mg/dL Normal 0.50-0.90 [facility] Comment on above: Performed By: #### L IP, CMPX, PT, CDP, PTT ####[address] , [place] [phone] lab Director: Mario Anne MD GFR, Amer >60 Normal >60 [facility] Comment on above: Performed By: #### L IP, CMPX, PT, CDP, PTT ####[address] , [place] [phone] lab Director: Mario Anne MD GFR,non Amer >60 Normal >60 [facility] Comment on above: Performed By: #### L IP, CMPX, PT, CDP, PTT ####[address] , [place] [id number] lab Director: Mario Anne MD Glucose [Mass/Vol] 93 mg/dL Normal 70-99 [facility] Comment on above: Performed By: #### L IP, CMPX, PT, CDP, PTT ####[address] [place] [address] lab Director: Mario Anne MD Potassium [Moles/Vol] 3.8 mmol/L Normal 3.7-5.3 [facility] Comment on above: Performed By: #### L IP, CMPX, PT, CDP, PTT ####[address] [place] [address] lab Director: Mario Anne MD Protein [Mass/Vol] 6.9 g/dL Normal 6.4-8.3 [facility] Comment on above: Performed By: #### L IP, CMPX, PT, CDP, PTT ####[address] [place] [address] lab Director: Mario Anne MD Sodium [Moles/Vol] 138 mmol/L Normal 135-144 [facility] Comment on above: Performed By: #### L IP, CMPX, PT, CDP, PTT ####[address] [place] [address] lab Director: Mario Anne MD Staging: Normal [facility] Comment on above: Result Comment: Stag e 1: Some kidney damage normal GFR Stage 2: Mild kidney damage GFR 60-89 Stage 3: Moderate kidney damage GFR 30-59 Stage 4: Severe kidney damage GFR 15-29 Stage 5: Severe kidney damage GFR <15 ESRD - chronic treatment by dialysis or transplant Performed By: #### L IP, CMPX, PT, CDP, PTT ####[address] [place] [address] lab Director: Mario Anne MD Urea nitrogen [Mass/Vol] 8 mg/dL Normal 6-20 [facility] Comment on above: Performed By: #### L IP, CMPX, PT, CDP, PTT ####[address] [place] [address] [facility] Director: Mario Anne MD Comprehensive Metabolic Pane l w/ Reflex to MGon 11-28-2018 Albumin [Mass/Vol] 3.7 g/dL 3.5 - 5.2 g/dL [place] Albumin/Globulin [Mass ratio] 1.2 {ratio} [place] ALP [Catalytic activity/Vol] 47 U/L 35 - 104 U/L [place] ALT [Catalytic activity/Vol] 18 U/L 5 - 33 U/L [place] Anion gap [Moles/Vol] 16 mmol/L 9 - 17 mmol/L [place] AST [Catalytic activity/Vol] 23 U/L <32 [place] Bilirubin Ql (U) 0.33 mg/dL 0.3 - 1.2 mg/dL [place] Bun/Cre Ratio 10 [place], [place] Calcium [Mass/Vol] 9.1 mg/dL 8.6 - 10. 4 mg/dL [place] Chloride [Moles/Vol] 102 mmol/L 98 - 10 7 mmol/L [place] CO2 [Moles/Vol] 20 mmol/L 20 - 31 mmol/L [place] Creatinine [Mass/Vol] 0.81 mg/dL 0.5 - 0.9 mg/dL [place] GFR >60 >60 mL/min [place] GFR Non- >60 >60 mL/min [place] Glucose [Mass/Vol] 93 mg/dL 70 - 99 mg/dL [place] Potassium [Moles/Vol] 3.8 mmol/L 3.7 - 5.3 mmol/L [place] Protein [Mass/Vol] 6.9 g/dL 6.4 - 8.3 g/dL [place] Sodium [Moles/Vol] 138 mmol/L 135 - 144 mmol/L [place] Urea nitrogen [Mass/Vol] 8 mg/dL 6 - 20 mg/dL [facility] [place], [place] Herpes Type I/II, IgGon 11-19 Herpes Type I, IgG 1.22 High <0.91 [facility] Comment on above: Result Comment: Reference Range: <=0.90 Negative 0.91-1.09 Equivocal >=1.10 Positive Performed By: #### C BC #### [facility] [address] [place] [address] [place], [place] [id number] Supervisor Hanging And Trimming: Mario Anne MD Herpes Type II, IgG 0.56 Normal <0.91 [facility] Comment on above: Result Comment: Reference Range: <=0.90 Negative 0.91-1.09 Equivocal >=1.10 Positive Performed By: #### C BC #### [address] [place] [address] Supervisor [employer] Trimming: Mario Anne MD Herpes Type I/II,IgMon 11-28 [...] weeks. Performed By: #### C BC #### [address] [place] [address] Supervisor [employer]anging And Trimming: Mario Anne MD Lactate, Sepsison 11-28-2018 Lactic Acid, Sepsis 1.8 mmol/L Normal 0.5-1.9 [facility] Comment on above: Performed By: #### T YS #### [address] [place] [address] Supervisor [employer] Trimming: Mario Anne MD Lactic Acid,Sep Wbld NOT REPORTED Normal 0.5-1.9 [facility] Comment on above: Performed By: #### T YS #### [address] [place], [place] [id number] Supervisor [employer] Trimming: Mario Anne MD Lactic Acid, Sepsis 1.8 mmol/L 0.5 - 1. 9 mmol/L [place] Lactic Acid, Sepsis, Whole Blood NOT REPORTED 0.5 - 1.9 mmol/L [place] Lipaseon 11-28-2018 Lipase [Catalytic activity/Vol] 21 U/L Normal 13-60 [facility] Comment on above: Performed By: #### L IP, CMPX, PT, CDP, PTT ####[facility] [place] [address] Lab Director: Mario Anne MD Lipase [Catalytic activity/Vol] 21 U/L 13 - 60 U/L [place] Lupus Anticoagulanton 2018 Antiphospholipid IgA 0.8 APU Normal <12 [facility] Comment on above: Result Comment: Reference Range: 12 - 15 Equivocal >15 Positive Performed By: #### C BC #### [facility] [address] [place] [address] Supervisor [employer]anging [employer] Trimming: Mario Anne MD Antiphospholipid IgG 3.0 GPU Normal <20 [facility] Comment on above: Result Comment: Reference Range: 20.0 - 29.9 Low Positive 30.0 - 79.9 Moderate Positive >79.9 High Positive Performed By: #### C BC #### [facility] [address] [place] [address] Supervisor [employer]anging [employer] Trimming: Mario Anne MD Antiphospholipid IgM 6.6 MPU Normal <20 [facility] Comment on above: Result Comment: Reference Range: 20.0 - 29.9 Low Positive 30.0 - 79.9 Moderate Positive >79.9 High Positive Performed By: #### C BC #### [facility] [address] [place] [address] Supervisor [employer]anging And Trimming: Mario Anne MD Metabolic Panelon 11-28-2018 GFR/1.73 sq M predicted among non-blacks MDRD (S/P/Bld) [Vol rate/Area] [place] Comment on above: Average GFR for 20-2 9 years old: 116 mL/min/1.73sq m Chronic Kidney Disease: <60 mL/min/1.73sq m Kidney failure: <15 mL/min/1.73sq m eGFR calculated using average adult body mass. Additional eGFR calculator available at: http://www.[employer]/multiple_crcl_2012.htm Stage 1: Some kidney damage normal GFR Stage 2: Mild kidney damage GFR 60-89 Stage 3: Moderate kidney damage GFR 30-59 Stage 4: Severe kidney damage GFR 15-29 Stage 5: Severe kidney damage GFR <15 ESRD - chronic treatment by dialysis or transplant Microscopic Urinalysison Amorphous, UA NOT REPORTED None [place] Bacteria, UA NOT REPORTED None [place], [place] Casts UA NOT REPORTED /LPF [place] Crystals UA NOT REPORTED None /HPF [place] Epithelial Cells UA 2 TO 5 [place] Mucus, UA NOT REPORTED None [place] Other Observations UA NOT REPORTED NOT REQ. M [place], [place] RBC (U) [#/Vol] 5 TO 10 [place] Renal Epithelial, Urine NOT REPORTED 0 /HPF [place] Trichomonas, UA NOT REPORTED None [place], [place] WBC, UA 10 TO 20 [place] Yeast, UA NOT REPORTED [place] Otheron 11-28-2018 Interpretation and review of laboratory results Abnormal [place] PTon 11-28-2018 INR Coag (PPP) [Relative time] 1.3 {INR} High 0.9-1.2 [facility] Comment on above: Performed By: #### L IP, CMPX, PT, CDP, PTT ####[facility] [place] [address] lab Director: Mario Anne MD PT Coag (PPP) [Time] 13.4 s High 9.7-12.2 [facility] Comment on above: Performed By: #### L IP, CMPX, PT, CDP, PTT ####[facility] [place] [address] Lab Director: Mario Anne MD Parvovirus B19 Panelon 11-28 Parvovirus IgG B19 6.29 IV High <=0.89 [facility] Comment on above: Result Comment: [...] time. Performed By: #### C BC #### [facility] [address] [place] [address] Supervisor Hanging And Trimming: Mario Anne MD Parvovirus IgM B19 0.15 IV Normal <=0.89 [facility] Comment on above: Result Comment: [...] levels of specific IgM antibodies. Performed by [facility], [address] [facility],[place] [id number] [email or web address], Fernando Valencia MD, Lab. Director Performed By: #### C BC #### [facility] [address] [place] [address] Supervisor Hanging And Trimming: Mario Anne MD Protein C Antigenicon 2018 Protein [Mass/Vol] 83 % Normal 63-153 [facility] Comment on above: Result Comment: (NOT E) INTERPRETIVE INFORMATION: Protein C, Total Antigen Patients on warfarin may have decreased protein C values. Patients should be off warfarin therapy for two weeks for accurate measurement of protein C. Access complete set of age- and/or gender-specific reference intervals for this test in the [facility] ([employer]). Performed by [facility], [address] [facility],[place] [id number] [email or web address], Fernando Valencia MD, Lab. Director Performed By: #### C BC #### [facility] [address] [place] [address] Supervisor Hanging And Trimming: Mario Anne MD Protein S, Antigenicon 11-28 Protein [Mass/Vol] 71 % Normal 63-126 [facility] Comment on above: Result Comment: (NOT E) INTERPRETIVE INFORMATION: Protein S, Total Antigen Patients on warfarin may have decreased protein S values. Patients should be off warfarin therapy for two weeks for accurate measurement of protein S. Access complete set of age- and/or gender-specific reference intervals for this test in the [facility] ([employer]). Performed by [facility], [address] [place] [address] [email or web address], Fernando Valencia MD, Lab. Director Performed By: #### C BC #### [facility] [address] [place] [address] Supervisor Hanging And Trimming: Mario Anne MD Protime-INRon 11-28-2018 INR Coag (PPP) [Relative time] 1.3 {INR} [place] PT Coag (PPP) [Time] 13.4 s High [facility], [place] Rubella IgM, Abon 11-28-2018 Rubella IgM, Ab <10.0 Normal <=19.9 [facility] Comment on above: Result Comment: (NOT [...] the amount of antibody present. Performed by [facility], [address] [place] [address] [email or web address], Fernando Valencia MD, Lab. Director Performed By: #### C BC #### [facility] [address] [place] [address] [place] [address] Supervisor Hanging And Trimming: Mario Anne MD Urinalysison 11-28-2018 Bilirubin Urine Negative NEGATIVE [facility]- [place], [place] Color, UA YELLOW YELLOW [facility], [place] Glucose, Ur Negative NEGATIVE [facility] [place], [place] Interpretation and review of laboratory results Abnormal [facility], [place] Ketones Ql (U) Negative NEGATIVE [facility] [place], [place] Leukocyte esterase Test strip Ql (U) SMALL Abnormal NEGATIVE [facility] [place], [place] Nitrite, Urine Negative NEGATIVE [facility] [place], [place] pH, UA 6.5 [facility], [place] Protein (U) [Mass/Vol] TRACE Abnormal NEGATIVE [facility], [place] Specific [place], UA 1.020 [place], [place] Turbidity UA CLEAR CLEAR [place] Urinalysis Comments NOT REPORTED [facility], [place] Urine Hgb 3+ Abnormal NEGATIVE [facility], [place] Urobilinogen, Urine Normal Normal [place] Urinalysis, Routineon 2018 Acetoacetic Acid,Ur Negative Normal [facility] Comment on above: Performed By: #### T YS #### [facility] [address] [place] [address] Supervisor Hanging And Trimming: Mario Anne MD Bilirubin, SemiQt,Ur Negative Normal [facility] Comment on above: Performed By: #### T YS #### [facility] [address] [place] [address] Supervisor Hanging And Trimming: Mario Anne MD Color (U) YELLOW Normal YEL [facility] Comment on above: Performed By: #### T YS #### [facility] [address] [place] [address] Supervisor Hanging And Trimming: Mario Anne MD Glucose Ql (U) Negative Normal [facility] in [facility] Comment on above: Performed By: #### T YS #### [facility] [address] [place] [address] [place] [address] Supervisor Hanging And Trimming: Mario Anne MD Hemoglobin, Ur 3+ Abnormal NEG [facility] Comment on above: Performed By: #### T YS #### [facility] [address] [place] [address] Supervisor Hanging And Trimming: Mario Anne MD Leukocyte esterase Test strip Ql (U) SMALL Abnormal NEG [facility] Comment on above: Performed By: #### T YS #### [facility] [address] [place] [address] Supervisor Hanging And Trimming: Mario Anne MD Nitrite,Ur Negative Normal [facility] Comment on above: Performed By: #### T YS #### [facility] [address] [place], [place] [id number] Supervisor Hanging And Trimming: Mario Anne MD pH (U) 6.5 [pH] Normal 5.0-9.0 [facility] Comment on above: Performed By: #### T YS #### [facility] [address] [place], [place] [id number] Supervisor Hanging And Trimming: Mario Anne MD Protein Ql (U) TRACE Abnormal NEG [facility] Comment on above: Performed By: #### T YS #### [facility] [address] [place], [place] [id number] Supervisor Hanging And Trimming: Mario Anne MD Specific gravity (U) [Rel density] 1.020 Normal 1.010-1.020 [facility] Comment on above: Performed By: #### T YS #### [facility] [address] [place], [place] [id number] Supervisor Hanging And Trimming: Mario Anne MD Turbidity CLEAR Normal CLEAR [facility] Comment on above: Performed By: #### T YS #### [facility] [address] [place], [place] [id number] Supervisor Hanging And Trimming: Mario Anne MD Urobilinogen,Ur Normal Normal NORM [facility] Comment on above: Performed By: #### T YS #### [facility] [address] [place] [address] Supervisor Hanging And Trimming: Mario Anne MD Comment NOT REPORTED Normal [facility] Comment on above: Performed By: #### T YS #### [facility] [address] [place], [place] [id number] Supervisor Hanging And Trimming: Mario Anne MD Urinalysis,Microon 9 ----- Normal [facility] Comment on above: Performed By: #### T YS #### [facility] [address] [place], [place] [phone] Supervisor Hanging And Trimming: Mario Anne MD Epithelial cells LM.HPF (Urine sed) [#/Area] 2 TO 5 Normal 0-25 [facility] Comment on above: Performed By: #### T YS #### [facility] [address] [place] [address] Supervisor Hanging And Trimming: Mario Anne MD RBC (U) [#/Vol] 5 TO 10 Normal 0-2 [facility] Comment on above: Performed By: #### T YS #### [facility] [address] [place] [address] Supervisor Hanging And Trimming: Mario Anne MD WBC (U) [#/Vol] 10 TO 20 Normal 0-5 [facility] Comment on above: Performed By: #### T YS #### [facility] [address] [place] [address] Supervisor Hanging And Trimming: Mario Anne MD Amorphous sediment LM Ql (Urine sed) NOT REPORTED Normal [facility] Comment on above: Performed By: #### T YS #### [facility] [address] [place] [address] Supervisor Hanging And Trimming: Mario Anne MD Bacteria LM.HPF (Urine sed) [#/Area] NOT REPORTED Normal [facility] Comment on above: Performed By: #### T YS #### [facility] [address] [place] [address] Supervisor Hanging And Trimming: Mario Anne MD Casts LM.LPF (Urine sed) [#/Area] NOT REPORTED Normal [facility] Comment on above: Performed By: #### T YS #### [facility] [address] [place] [address] Supervisor Hanging And Trimming: Mario Anne MD Crystals LM Nom (Urine sed) NOT REPORTED Normal [facility] Comment on above: Performed By: #### T YS #### [facility] [address] [place], [place] [address]83 Supervisor Hanging And Trimming: Mario Anne MD Epithelial, Renal NOT REPORTED Normal 0 [facility] Comment on above: Performed By: #### T YS #### [facility] [address] [place], [place] [phone] Supervisor Hanging And Trimming: Mario Anne MD Mucus Strands NOT REPORTED Normal NONE [facility] Comment on above: Performed By: #### T YS #### [facility] [address] [place], [place] 7953683 Supervisor Hanging And Trimming: Mario Anne MD Other Observations NOT REPORTED Normal NREQ [facility] Comment on above: Performed By: #### T YS #### [facility] [address] [place], [place] 1015683 Supervisor Hanging And Trimming: Mario Anne MD Trichomonas NOT REPORTED Normal NONE [facility] Comment on above: Performed By: #### T YS #### [facility] [address] [place], [place] [id number] Supervisor Hanging And Trimming: Mario Anne MD Yeast LM Ql (Urine sed) NOT REPORTED Normal [facility] Comment on above: Performed By: #### T YS #### [facility] [address] [place], [place] [id number] Supervisor Hanging And Trimming: Mario Anne MD Venous Blood Gaseson 019 HCO3 (Bld) [Moles/Vol] 20.5 mmol/L Low 24.0-30.0 [facility] Comment on above: Performed By: #### V BG ####[facility] , [place] [id number] Lab Director: Mario Anne MD Negative Base Excess 2.9 mmol/L High 0.0-2.0 [facility] Comment on above: Performed By: #### V BG ####[facility] , [place] 3123483 Lab Director: Mario Anne MD Oxygen (Bld) [Partial pressure] 22.2 mm[Hg] Low 30.0-50.0 [facility] Comment on above: Performed By: #### V BG ####[facility] , [place] 6543583 Lab Director: Mario Anne MD Oxygen saturation in Blood 40.2 % Low 60.0-85.0 [facility] Comment on above: Performed By: #### V BG ####[facility] [place] [address] Lab Director: Mario Anne MD pCO2 31.9 Low 39-55 [facility] Comment on above: Performed By: #### V BG ####[address] , [place] 9[address] Lab Director: Mario Anne MD pH (Bld) 7.425 [pH] High 7.32-7.42 [facility] Comment on above: Performed By: #### V BG ####[address] [place] [address] Lab Director: Mario Anne MD Marco Test NOT REPORTED Normal [facility] Comment on above: Performed By: #### V BG ####[address] [place] [address] Lab Director: Mario Anne MD Body Temp. NOT REPORTED Normal [facility] Comment on above: Performed By: #### V BG ####[address] [place] [address] Lab Director: Mario Anne MD Carboxy Hgb NOT REPORTED Normal 0-5 [facility] Comment on above: Performed By: #### V BG ####[address] , [place] 426[address] Lab Director: Mario Anne MD FIO2 NOT REPORTED Normal [facility] Comment on above: Performed By: #### V BG ####[address] [place] [address] [place] [address] Lab Director: Mario Anne MD Methemoglobin NOT REPORTED Normal 0.0-1.9 [facility] Comment on above: Performed By: #### V BG ####[facility] [place] [address] Lab Director: Mario Anne MD Mode NOT REPORTED Normal [facility] Comment on above: Performed By: #### V BG ####[address] [place] [address] Lab Director: Mario Anne MD Notification Time NOT REPORTED Normal [facility] Comment on above: Performed By: #### V BG ####[address] [place] [address] Lab Director: Mario Anne MD Notification: NOT REPORTED Normal [facility] Comment on above: Performed By: #### V BG ####[address] [place] [address] Lab Director: Mario Anne MD O2 Device/Flow/% NOT REPORTED Normal [facility] Comment on above: Performed By: #### V BG ####[address] [place] [address] Lab Director: Mario Anne MD Oxyhemoglobin NOT REPORTED Normal 95.0-98.0 [facility] Comment on above: Performed By: #### V BG ####[address] [place] [address] Lab Director: Mario Anne MD Pco2 Adj'd for Temp. NOT REPORTED Normal 39.0-55.0 [facility] Comment on above: Performed By: #### V BG ####[address] , [place] 944[address]83 Lab Director: Mario Anne MD PEEP/CPAP NOT REPORTED Normal [facility] Comment on above: Performed By: #### V BG ####[address] [place] [address] Lab Director: Mario Anne MD pH Adjst'd for Temp. NOT REPORTED Normal 7.320-7.420 [facility] Comment on above: Performed By: #### V BG ####[address] [place] [address] Lab Director: Mario Anne MD pO2 Adj'd for Temp. NOT REPORTED Normal 30.0-50.0 [facility] Comment on above: Performed By: #### V BG ####[address] [place] [address] Lab Director: Mario Anne MD Positive Base Excess NOT REPORTED Normal 0.0-2.0 [facility] Comment on above: Performed By: #### V BG ####[address] [place] [address] Lab Director: Mario Anne MD PSV NOT REPORTED Normal [facility] Comment on above: Performed By: #### V BG ####[address] , [place] [id number] Lab Director: Mario Anne MD Pt. Position NOT REPORTED Normal [facility] Comment on above: Performed By: #### V BG ####[address] [place] [address] Lab Director: Mario Anne MD Set Rate NOT REPORTED Normal [facility] Comment on above: Performed By: #### V BG ####[address] , [place] 74[address]83 Lab Director: Mario Anne MD Site Drawn NOT REPORTED Normal [facility] Comment on above: Performed By: #### V BG ####[address] , [place] [id number] lab Director: Mario Anne MD Text for Respiratory NOT REPORTED Normal Me [facility] Comment on above: Performed By: #### V BG ####[facility] [place], [place] 1354183 lab Director: Mario Anne MD Total Hb NOT REPORTED Normal 12.0-16.0 [facility] Comment on above: Performed By: #### V BG ####[facility] [place], [place] 8500[address]83 lab Director: Mario Anne MD Total Rate NOT REPORTED Normal [facility] Comment on above: Performed By: #### V BG ####[facility] [place], [place] 1174283 lab Director: Mario Anne MD VT NOT REPORTED Normal [facility] Comment on above: Performed By: #### V BG ####[facility] [place], [place] 1147383 lab Director: Mario Anne MD XR CHEST [...] Matt Mayer MD 11/28/18 Final result Normal [facility] Cardiomegaly and congestion magnified by technique. No airspace consolidation. [facility] [place], [place], M[facility]pn Incoming Radiant Results From [employer] - 11/28/2018 8:56 PM EDT EXAMINATION: ONE XRAY VIEW OF THE CHEST 11/28/2018 7:38 pm COMPARISON: None. HISTORY: ORDERING SYSTEM PROVIDED HISTORY: R/O PNA TECHNOLOGIST PROVIDED HISTORY: R/O PNA FINDINGS: Mild congestion, likely magnified by technique. No airspace consolidation, effusion, or pneumothorax. Borderline cardiomegaly. IMPRESSION: Cardiomegaly and congestion magnified by technique. No airspace consolidation. [place], [place] EXAMINATION: ONE XRA Y VIEW OF THE CHEST 11/28/2018 7:38 pm COMPARISON: None. HISTORY: ORDERING SYSTEM PROVIDED HISTORY: R/O PNA TECHNOLOGIST PROVIDED HISTORY: R/O PNA FINDINGS: Mild congestion, likely magnified by technique. No airspace consolidation, effusion, or pneumothorax. Borderline cardiomegaly. [place], [place] CMV Ab,IgGon 11-27-2018 CMV Ab,IgG 0.1 Normal <0.9 [facility] Comment on above: Result Comment: [...] FA2, MATIAS, TOXOG, HSVM12, CMVG, FA5 #### [address] [id number] Supervisor Hanging And Trimming: Geo Mar MD #### CBC, FIB #### [facility] [address] [place] [address] [place] [address] Supervisor Hanging And Trimming: Mario Anne MD #### APROTS, APARVP, APROTC, ARUBGM #### [facility] [address] [place] [address] Supervisor Hanging And Trimming: Fernando Valencia MD #### LUPPRO #### [address] [id number] Supervisor Hanging And Trimming: Geo Mar MD [address] [place] [address] Supervisor Hanging And Trimming: Mario Anne MD CMV Ab,IgMon 11-27-2018 CMV Ab,IgM 0.4 Normal <0.9 [facility] Comment on above: Result Comment: [...] findings. Performed By: #### C BC #### [facility] [address] [place] [address] [address] [place] [phone] Supervisor Hanging And Trimming: Mario Anne MD CBCon 11-25-2018 Erythrocyte distribution width (RBC) [Ratio] 13.2 % Normal 11.8-14.4 [facility] Comment on above: Performed By: #### T OXOM, HSVG12, CMVM, FA2, MATIAS, TOXOG, HSVM12, CMVG, FA5 #### [facility] [address] [place] [address] [id number] Supervisor Hanging And Trimming: Geo Mar MD #### CBC, FIB #### [address] [place] [address] Supervisor Hanging And Trimming: Mario Anne MD #### APROTS, APARVP, APROTC, ARUBGM #### [facility] [address] [place] [address] Supervisor Hanging And Trimming: Fernando Valencia MD #### LUPPRO #### [facility] [address] [place] [address] [id number] Supervisor Hanging And Trimming: Geo Mar MD [address] [place] [address] Supervisor Hanging And Trimming: Mario Anne MD Hematocrit (Bld) [Volume fraction] 30.4 % Low 36.3-47.1 [facility] Comment on above: Performed By: #### T OXOM, HSVG12, CMVM, FA2, MATIAS, TOXOG, HSVM12, CMVG, FA5 #### [facility] [address] [place] [address] Supervisor Hanging And Trimming: Geo Mar MD #### CBC, FIB #### [address] [place], [place] 7654783 Supervisor Hanging And Trimming: Mario Anne MD #### APROTS, APARVP, APROTC, ARUBGM #### [facility] [address] [place] [address] Supervisor Hanging And Trimming: Fernando Valencia MD #### LUPPRO #### [address] [address] Supervisor Hanging And Trimming: Geo Mar MD [address] [place] [phone] Supervisor Hanging And Trimming: Mario Anne MD Hemoglobin (Bld) [Mass/Vol] 9.7 g/dL Low 11.9-15.1 [facility] Comment on above: Performed By: #### T OXOM, HSVG12, CMVM, FA2, MATIAS, TOXOG, HSVM12, CMVG, FA5 #### [address] [address] Supervisor Hanging And Trimming: Geo Mar MD #### CBC, FIB #### [address] [place], [place] [id number] Supervisor Hanging And Trimming: Mario Anne MD #### APROTS, APARVP, APROTC, ARUBGM #### [facility] [address] [place] [address] Supervisor Hanging And Trimming: Fernando Valencia MD #### LUPPRO #### [address] [address] Supervisor Hanging And Trimming: Geo Mar MD [address] [place] [address] Supervisor Hanging And Trimming: Mario Anne MD MCH (RBC) [Entitic mass] 28.2 pg Normal 25.2-33.5 [facility] Comment on above: Performed By: #### T OXOM, HSVG12, CMVM, FA2, MATIAS, TOXOG, HSVM12, CMVG, FA5 #### [address] [id number] Supervisor Hanging And Trimming: Geo Mar MD #### CBC, FIB #### [address] [place] [phone] Supervisor Hanging And Trimming: Mario Anne MD #### APROTS, APARVP, APROTC, ARUBGM #### [facility] [address] [place], [place] [id number] Supervisor Hanging And Trimming: Fernando Valencia MD #### LUPPRO #### [address] [address] Supervisor Hanging And Trimming: Geo Mar MD [address] [place] [phone] Supervisor Hanging And Trimming: Mario Anne MD MCHC (RBC) [Mass/Vol] 31.9 g/dL Normal 28.4-34.8 [facility] Comment on above: Performed By: #### T OXOM, HSVG12, CMVM, FA2, MATIAS, TOXOG, HSVM12, CMVG, FA5 #### [address] [address] Supervisor Hanging And Trimming: Geo Mar MD #### CBC, FIB #### [address] [place] [address] Supervisor Hanging And Trimming: Mario Anne MD #### APROTS, APARVP, APROTC, ARUBGM #### [facility] [address] [place], [place] [id number] Supervisor Hanging And Trimming: Fernando Valencia MD #### LUPPRO #### [address] [address] Supervisor Hanging And Trimming: Geo Mar MD [address] [place] [phone] Supervisor Hanging And Trimming: Mario Anne MD MCV (RBC) [Entitic vol] 88.4 fL Normal 82.6-102.9 [facility] Comment on above: Performed By: #### T OXOM, HSVG12, CMVM, FA2, MATIAS, TOXOG, HSVM12, CMVG, FA5 #### [address] [address] Supervisor Hanging And Trimming: Geo Mar MD #### CBC, FIB #### [address] [place] [phone] Supervisor Hanging And Trimming: Mario Anne MD #### APROTS, APARVP, APROTC, ARUBGM #### [facility] [address] [place] [address] Supervisor Hanging And Trimming: Fernando Valencia MD #### LUPPRO #### [address] [address] Supervisor Hanging And Trimming: Geo Mar MD [address] [place] [phone] Supervisor Hanging And Trimming: Mario Anne MD NRBC Automated 0.0 per 100 WBC Normal 0.0 [facility] Comment on above: Performed By: #### T OXOM, HSVG12, CMVM, FA2, MATIAS, TOXOG, HSVM12, CMVG, FA5 #### [address] [address] Supervisor Hanging And Trimming: Geo Mar MD #### CBC, FIB #### [address] [place] [address] Supervisor Hanging And Trimming: Mario Anne MD #### APROTS, APARVP, APROTC, ARUBGM #### [facility] [address] [place] [address] Supervisor Hanging And Trimming: Fernando Valencia MD #### LUPPRO #### [address] [address] Supervisor Hanging And Trimming: Geo Mar MD [address] [place] [phone] Supervisor Hanging And Trimming: Mario Anne MD Platelet mean volume (Bld) [Entitic vol] 10.4 fL Normal 8.1-13.5 [facility] Comment on above: Performed By: #### T OXOM, HSVG12, CMVM, FA2, MATIAS, TOXOG, HSVM12, CMVG, FA5 #### [address] [address] Supervisor Hanging And Trimming: Geo Mar MD #### CBC, FIB #### [address] [place] [phone] Supervisor Hanging And Trimming: Mario Anne MD #### APROTS, APARVP, APROTC, ARUBGM #### [facility] [address] [place] [address] Supervisor Hanging And Trimming: Fernando Valencia MD #### LUPPRO #### [address] [address] Supervisor Hanging And Trimming: Geo Mar MD [address] [place] [phone] Supervisor Hanging And Trimming: Mario Anne MD Platelets (Bld) [#/Vol] 247 10*3/uL Normal 138-453 [facility] Comment on above: Performed By: #### T OXOM, HSVG12, CMVM, FA2, MATIAS, TOXOG, HSVM12, CMVG, FA5 #### [address] [address] Supervisor Hanging And Trimming: Geo Mar MD #### CBC, FIB #### [address] [place], [place] 1195983 Supervisor Hanging And Trimming: Mario Anne MD #### APROTS, APARVP, APROTC, ARUBGM #### [facility] [address] [place] [address] Supervisor Hanging And Trimming: Fernando Valencia MD #### LUPPRO #### [address] [address] Supervisor Hanging And Trimming: Geo Mar MD [address] [place], [place] [phone] Supervisor Hanging And Trimming: Mario Anne MD RBC (Bld) [#/Vol] 3.44 10*6/uL Low 3.95-5.11 [facility] Comment on above: Performed By: #### T OXOM, HSVG12, CMVM, FA2, MATIAS, TOXOG, HSVM12, CMVG, FA5 #### [address] [address] Supervisor Hanging And Trimming: Geo Mar MD #### CBC, FIB #### [address] [place] [address] Supervisor Hanging And Trimming: Mario Anne MD #### APROTS, APARVP, APROTC, ARUBGM #### [facility] [address] [place], [place] [id number] Supervisor Hanging And Trimming: Fernando Valencia MD #### LUPPRO #### [address] [address] Supervisor Hanging And Trimming: Geo Mar MD [address] [place], [place] [phone] Supervisor Hanging And Trimming: Mario Anne MD WBC (Bld) [#/Vol] 13.1 10*3/uL High 3.5-11.3 [facility] Comment on above: Performed By: #### T OXOM, HSVG12, CMVM, FA2, MATIAS, TOXOG, HSVM12, CMVG, FA5 #### [address] [place] [address] Supervisor Hanging And Trimming: Geo Mar MD #### CBC, FIB #### [address] [place] [id number] Supervisor Hanging And Trimming: Mario Anne MD #### APROTS, APARVP, APROTC, ARUBGM #### [facility] [address] [place] [address] Supervisor Hanging And Trimming: Fernando Valencia MD #### LUPPRO #### [address] [id number] Supervisor Hanging And Trimming: Geo Mar MD [address] [place] [address] Supervisor Hanging And Trimming: Mario Anne MD Drug Scr, Abuse, Uron 2018 Amphetamine(s),Ur Negative Normal NEG [facility] Comment on above: Performed By: #### D AU ####[address] [place] [id number] [facility] Director: Mario Anne MD Barbiturate(s),Ur Negative Normal NEG [facility] Comment on above: Performed By: #### D AU ####[address] , [facility]83 [facility] Director: Mario Anne MD Base excess Calc (Bld) [Moles/Vol] Negative Normal [facility] Comment on above: Performed By: #### D AU ####[address] [place] [id number] [facility] Director: Mario Anne MD Benzodiazepine(s) Negative Normal NEG [facility] Comment on above: Performed By: #### D AU ####[address] [place] [id number] Lab Director: Mario Anne MD Buprenorphrine, Ur Negative Normal NEG [facility] Comment on above: Performed By: #### D AU ####[address] , [place] [id number] Lab Director: Mario Anne MD Cannabinoid(s),Ur Negative Normal NEG [facility] Comment on above: Performed By: #### D AU ####[address] , [place] [id number] Lab Director: Mario Anne MD Methadone Ql (U) Negative Normal NEG [facility] Comment on above: Performed By: #### D AU ####[address] , [place] [id number] Lab Director: Mario Anne MD Methamphetamine, Ur Negative Normal NEG [facility] Comment on above: Performed By: #### D AU ####[address] [place] [address] Lab Director: Mario Anne MD Opiate(s), Ur Negative Normal [facility] Comment on above: Performed By: #### D AU ####[address] [place] [address] Lab Director: Mario Anne MD Oxycodone, Urine Negative Normal NEG [facility] Comment on above: Performed By: #### D AU ####[address] [place] [address] Lab Director: Mario Anne MD Phencyclidine, Ur Negative Normal [facility] Comment on above: Performed By: #### D AU ####[address] [place] [address] Lab Director: Mario Anne MD Propoxyphene,Urine Negative Normal [facility] Comment on above: Performed By: #### D AU ####[facility] [place], [place] [id number] Lab Director: Mario Anne MD Tricyclic antidepressants Screen Ql (U) Negative Normal NEG [facility] Comment on above: Result Comment: Drug screen results are to be used for medical purposes only. All positive results are unconfirmed. Testing for employment or legal uses should be sent to a reference laboratory for confirmation. Performed By: #### D AU ####[address] [place] [address] Lab Director: Mario Anne MD Interpretive Info NOT REPORTED Normal [facility] Comment on above: Performed By: #### D AU ####[address] [place], [place] 167[address]83 Lab Director: Mario Anne MD MDMA, Urine NOT REPORTED Normal NEG [facility] Comment on above: Performed By: #### D AU ####[address] [place], [place] [id number] Lab Director: Mario Anne MD Fibrinogenon 11-25-2018 Fibrinogen 465 mg/dL High 185-451 [facility] Comment on above: Performed By: #### T OXOM, HSVG12, CMVM, FA2, MATIAS, TOXOG, HSVM12, CMVG, FA5 #### [address] [id number] Supervisor Hanging And Trimming: Geo Mar MD #### CBC, FIB #### [address] [place], [place] [id number] Supervisor Hanging And Trimming: Mario Anne MD #### APROTS, APARVP, APROTC, ARUBGM #### [facility] [address] [place] [address] Supervisor Hanging And Trimming: Fernando Valencia MD #### LUPPRO #### [address] [phone] Supervisor Hanging And Trimming: Geo Mar MD [facility] [address] [place], [place] [phone] Supervisor Hanging And Trimming: Mario Anne MD Hgb/Hcton 11-25-2018 Hematocrit (Bld) [Volume fraction] 30.4 % Low 36.3-47.1 [facility] Comment on above: Performed By: #### H H ####[facility] 2207483 Lab Director: Mario Anne MD Hemoglobin (Bld) [Mass/Vol] 9.8 g/dL Low 11.9-15.1 [facility] Comment on above: Performed By: #### H H ####[address] , [place] [id number] [facility] Director: Mario Anne MD Lupus Anticoagulanton 2018 aPTT Coag (Bld) [Time] 27.1 s Normal 23.2-34.4 [facility] Comment on above: Performed By: #### C BC #### [facility] [address] [place], [place] [phone] Supervisor Hanging And Trimming: Mario Anne MD INR Coag (PPP) [Relative time] 0.9 {INR} Normal 0.9-1.2 [facility] Comment on above: Performed By: #### C BC #### [facility] [address] [place], [place] 649[address] Supervisor Hanging And Trimming: Mario Anne MD PT Coag (PPP) [Time] 9.7 s Normal 9.7-12.2 [facility] Comment on above: Performed By: #### C BC #### [facility] [address] [place], [place] [id number] Supervisor Hanging And Trimming: Mario Anne MD Lupus Anticoagulant NOT REPORTED Normal [facility] Comment on above: Performed By: #### C BC #### [facility] [address] [place] [address] Supervisor Hanging And Trimming: Mario Anne MD Rubella Ab, IgGon 11-25-2018 Rubella Ab, IgG 27.5 IU/mL Normal [facility] Comment on above: Result Comment: REFERENCE RANGE: <5.0 NON-REACTIVE (non-immune) 5.0 TO 9.9 EQUIVOCAL >=10.0 REACTIVE (immune) Performed By: #### T OXOM, HSVG12, CMVM, FA2, MATIAS, TOXOG, HSVM12, CMVG, FA5 #### [address] [id number] Supervisor Hanging And Trimming: Geo Mar MD #### CBC, FIB #### [address] [place] [address] Supervisor Hanging And Trimming: Mario Anne MD #### APROTS, APARVP, APROTC, ARUBGM #### [facility] [address] [place] [address] Supervisor Hanging And Trimming: Fernando Valencia MD #### LUPPRO #### [address] [address] Supervisor Hanging And Trimming: Geo Mar MD [address] [place] [address] Supervisor Hanging And Trimming: Mario Anne MD Surgical Pathologyon 019 Surgical Pathology (NOTE) [id number] [facility] CONSULTING PATHOLOGISTS [facility] ANATOMIC PATHOLOGY [address] [place] [phone] SURGICAL PATHOLOGY CONSULTATION Patient Name: DEION CUMMINGS [facility] Rec: [id number] Path Number: [id number] Collected: 11/25/2018 Received: 11/29/2018 Reported: 11/30/2018 16:37 [...] villous capillaries: Rare Other: Few microcalcifications Normal [facility] Comment on above: Performed By: #### T OXOM, HSVG12, CMVM, FA2, MATIAS, TOXOG, HSVM12, CMVG, FA5 #### [facility] [address] [place] [address] [id number] Supervisor Hanging And Trimming: Geo Mar MD #### CBC, FIB #### [address] [place] [address] Supervisor Hanging And Trimming: Mario Anne MD #### APROTS, APARVP, APROTC, ARUBGM #### [facility] [address] [place] [address] Supervisor Hanging And Trimming: Fernando Valencia MD #### LUPPRO #### [address] [id number] Supervisor Hanging And Trimming: Geo Mar MD [address] [place], [place] [phone] Supervisor Hanging And Trimming: Mario Anne MD Thyroid Stim. Horm.on 2018 TSH Qn 1.78 m[IU]/L Normal 0.30-5.00 [facility] Comment on above: Performed By: #### T SH ####[address] , [place] [id number] Lab Director: Mario Anne MD Toxoplasma Ab,IgGon 11-26-19 19 Toxoplasma Ab,IgG <0.5 Normal [facility] Comment on above: Result Comment: REFERENCE [...] FA2, MATIAS, TOXOG, HSVM12, CMVG, FA5 #### [facility] [address] [place] [address] [phone] Supervisor Hanging And Trimming: Geo Mar MD #### CBC, FIB #### [address] [place] [phone] Supervisor Hanging And Trimming: Mario Anne MD #### APROTS, APARVP, APROTC, ARUBGM #### [facility] [address] [place] [address] Supervisor Hanging And Trimming: Fernando Valencia MD #### LUPPRO #### [address] [address] Supervisor Hanging And Trimming: Geo Mar MD [address] [place], [place] 616[address]83 Supervisor Hanging And Trimming: Mario Anne MD Toxoplasma Ab,IgMon 11-26-19 19 Toxoplasma Ab,IgM 0.55 Index Normal [facility] Comment on above: Result Comment: REFERENCE RANGE: <0.90 NON-REACTIVE 0.90 TO 1.00 INDETERMINANT >=1.10 REACTIVE Performed By: #### T OXOM, HSVG12, CMVM, FA2, MATIAS, TOXOG, HSVM12, CMVG, FA5 #### [address] [place], [place] 1435408 Supervisor Hanging And Trimming: Geo Mar MD #### CBC, FIB #### [address] [place] [address] Supervisor Hanging And Trimming: Mario Anne MD #### APROTS, APARVP, APROTC, ARUBGM #### [facility] [address] [place] [address] Supervisor Hanging And Trimming: Fernando Valencia MD #### LUPPRO #### [address] [phone] Supervisor Hanging And Trimming: Geo Mar MD [address] [place] [address] Supervisor Hanging And Trimming: Mario Anne MD Type + Screenon 11-25-2018 Type + Screen Sample Expiration 11/28/2018 Arm Band Number [id number] ABO/Rh(D) O POSITIVE Antibody Screen NEGATIVE Normal [facility] Comment on above: Performed By: #### T YS ####[address] [place] [address] Lab Director: Mario Anne MD CBCon 11-24-2018 Erythrocyte distribution width (RBC) [Ratio] 13.2 % Normal 11.8-14.4 [facility] Comment on above: Performed By: #### C BC #### [address] [place] [address] Supervisor Hanging And Trimming: Mario Anne MD Hematocrit (Bld) [Volume fraction] 31.6 % Low 36.3-47.1 [facility] Comment on above: Performed By: #### C BC #### [facility] [address] [place] [address] Supervisor Hanging And Trimming: Mario Anne MD Hemoglobin (Bld) [Mass/Vol] 10.1 g/dL Low 11.9-15.1 [facility] Comment on above: Performed By: #### C BC #### [address] [place] [address] Supervisor Hanging And Trimming: Mario Anne MD MCH (RBC) [Entitic mass] 28.1 pg Normal 25.2-33.5 [facility] Comment on above: Performed By: #### C BC #### [address] [place] [address] Supervisor Hanging And Trimming: Mario Anne MD MCHC (RBC) [Mass/Vol] 32.0 g/dL Normal 28.4-34.8 [facility] Comment on above: Performed By: #### C BC #### [address] [place] [address] Supervisor Hanging And Trimming: Mario Anne MD MCV (RBC) [Entitic vol] 88.0 fL Normal 82.6-102.9 [facility] Comment on above: Performed By: #### C BC #### [address] [place] [address] Supervisor Hanging And Trimming: Mario Anne MD NRBC Automated 0.0 per 100 WBC Normal 0.0 [facility] Comment on above: Performed By: #### C BC #### [address] [place], [place] [phone] Supervisor Hanging And Trimming: Mario Anne MD Platelet mean volume (Bld) [Entitic vol] 10.1 fL Normal 8.1-13.5 [facility] Comment on above: Performed By: #### C BC #### [address] [place] [address] Supervisor Hanging And Trimming: Mario Anne MD Platelets (Bld) [#/Vol] 246 10*3/uL Normal 138-453 [facility] Comment on above: Performed By: #### C BC #### [facility] [address] [place], [place] [phone] Supervisor Hanging And Trimming: Mario Anne MD RBC (Bld) [#/Vol] 3.59 10*6/uL Low 3.95-5.11 [facility] Comment on above: Performed By: #### C BC #### [facility] [address] [place], [place] [phone] Supervisor Hanging And Trimming: Mario Anne MD WBC (Bld) [#/Vol] 10.7 10*3/uL Normal 3.5-11.3 [facility] Comment on above: Performed By: #### C BC #### [facility] [address] [place], [place] [phone] Supervisor Hanging And Trimming: Mario Anne MD Type + Screenon 11-24-2018 Type + Screen Sample Expiration 11/27/2018 Arm Band Number [id number] ABO/Rh(D) O POSITIVE Antibody Screen NEGATIVE Normal [facility] Comment on above: Performed By: #### T YS #### [facility] [address] [place], [place] [id number] Supervisor Hanging And Trimming: Mario Anne MD US OB 14 PLUS [...] Luis Adam MD 11/24/18 Final result Normal [facility] US OB TRANSVAGINALon 019 US OB TRANSVAGINAL [...] Yolk Sac: Not visualized Pole: Single pole [place] Rump Length: 7.11 cm Heart Rate: 145 [...] Grzegorz Vicente MD 09/30/18 Final result Normal [facility] ABO/Rhon 09-17-2018 ABO and Rh group Nom (Bld) O Positive [facility] HCG (QUANTITATIVE)on 019 Beta HCG ( test) Ql (U) Males and non females: <5 mIU/mL Females during : 3-4 weeks 9-130 mIU/mL 4-5 weeks 75-2600 mIU/mL 5-6 weeks 850-20,800 mIU/mL 6-7 weeks 4000-100,200 mIU/mL 7-12 weeks 11,500-289,000 mIU/mL 12-16 weeks 18,300-137,000 mIU/mL 16-29 weeks 1,400-53,000 mIU/mL 29-41 weeks 940-60,000 mIU/[place] [facility] [place] [address] m[IU]/mL High [facility] Interpretation and review of laboratory results Abnormal [facility] Vital Signs Date Time Vital Sign Value Performing Clinician Facility 11-30-2018 08:46-0400 Body Temperature 97.9 [degF] [place] 11-30-2018 08:46-0400 BP Diastolic 85 mm[Hg] [place] 11-30-2018 08:46-0400 BP Systolic 133 mm[Hg] [place] 11-30-2018 08:46-0400 Pulse (Heart Rate) 80 /min [place], [place] 11-30-2018 08:46-0400 Pulse Oximetry 99 % [place] 11-30-2018 08:46-0400 Respiratory Rate 18 /min [place] 11-30-2018 04:30-0400 BMI (Body Mass Index) 54.64 kg/m2 [place] 11-30-2018 04:30-0400 Body weight 167.83 kg [place] 11-29-2018 08:35-0400 Height 175.3 cm [place] 11-28-2018 21:40-0400 Respiratory rate NOT REPORTED [facility] Comment on above: Performed By: #### VBG ####[facility] [place] [address] lab Director: Mario Anne MD 11-28-2018 19:51-0400 Respiratory rate NOT REPORTED Art Ugarte [facility] Steven MA 09-17-2018 00:04-0400 BMI (Body Mass Index) 54.93 kg/m2 [facility] 09-17-2018 00:04-0400 Body Temperature 98.29 [degF] [facility] 09-17-2018 00:04-0400 Body weight 168.74 kg [facility] 09-17-2018 00:04-0400 BP Diastolic 91 mm[Hg] [facility] 09-17-2018 00:04-0400 BP Systolic 170 mm[Hg] [facility] 09-17-2018 00:04-0400 Height 175.3 cm [facility] 09-17-2018 00:04-0400 Pulse (Heart Rate) 95 /min [facility] 09-17-2018 00:04-0400 Pulse Oximetry 98 % [facility] 09-17-2018 00:04-0400 Respiratory Rate 16 /min [facility] Encounters Encounter Date Encounter Type Care [...] BABIN Facility:H1 Start: 07-30-2021 End: 07-30-2021 ambulatory [facility] Facility:H1 Start: 04-29-2021 End: 04-30-2021 ambulatory [facility] Start: 04-29-2021 End: 04-29-2021 Subsequent hospital visit by physician Mike Osullivan MD Work Phone: [facility] Comment on above: Abnormal menstrual p eriods Start: 04-08-2020 End: 04-08-2020 Subsequent hospital visit by physician Mike [place] [facility] Start: 11-28-2018 End: 11-30-2018 Evaluation and management of inpatient [facility] Start: 11-28-2018 End: 11-30-2018 Evaluation and management of inpatient Art Ugarte Work Phone: [facility] SUR[facility] Comment on above: Sepsis, due to unspe cified organism (HCC) (Primary Dx) Start: 11-24-2018 End: 11-25-2018 Evaluation and management of inpatient [facility] Start: 09-30-2018 End: 09-30-2018 Patient encounter procedure [facility] Start: 09-17-2018 End: 09-17-2018 [facility] Start: 09-17-2018 End: 09-17-2018 [facility] Work Phone: [facility] Emergency Department Comment on above: Vaginal bleeding in (Primary Dx) Procedures Date Procedure Procedure Detail Performing Clinician Start: 04-29-2021 Gonadotropin chorionic quantitative Vadim Joyce CLIENT ADVOCATE - METALLURGICAL TECHNICIAN Work Phone: Start: 04-08-2020 Assay of insulin total Mike Gabriel [facility] Work Phone: Start: 04-08-2020 Assay of thyroid stimulating hormone tsh Mike [facility] Work Phone: Start: 04-08-2020 Assay of thyroxine [...] MullinsY Start: 11-30-2018 Drug screen quantitative vancomycin MKIE OSULLIVAN Start: 11-30-2018 Blood count complete auto&auto [...] HO Y Start: 11-29-2018 IP CONSULT TO SUPERVISOR GLUING MIKE HOY Start: 11-29-2018 NOTIFY PHYSICIAN (SPECIFY) [...] 11-19-2020 Influenza vaccination Flu vaccine (# 1) [facility] Start: 11-20-2019 Influ[facility] [place] [place] Start: 11-19-2018 Influenza vaccination Flu vaccine (# 1) [place], [place] Start: 2014 Cervical cancer screen Cervical canc er screen [place] Start: 2014 Screening for malign ant neoplasm of cervix [facility] Start: 2012 DTaP/Tdap/Td vaccine (1 - Tdap) DTaP/Tdap/Td vaccine (1 - Tdap) [facility] Start: 2008 HIV screen HIV screen [place], [place] Start: 2008 HIV screening HIV screen [facility] Start: 2008 HPV vaccine (1 - Fem killian 3-dose series) HPV vaccine (1 - Female 3-dose series) [place] Start: 2006 Varicella Vaccine (1 of 2 - 13+ 2-dose series) Varicella Vaccine (1 of 2 - 13+ 2-dose series) [place] Start: 2005 Depression Screen Depression Screen [facility] Start: 1999 Pneumococcal 0-64 ye ars Vaccine (1 of 1 - PPSV23) Pneumococcal 0-64 years Vaccine (1 of 1 - PPSV23) [place] Start: 1999 Pneumococcal 0-64 ye ars Vaccine (1 of 2 - PPSV23) Pneumococcal 0-64 years Vaccine (1 of 2 - PPSV23) [facility] Start: 1998 COVID-19 Vaccine (1) COVID-19 Vaccin e (1) [facility] Start: 1994 Varicella vaccine (1 of 2 - 2-dose childhood series) Varicella vaccine (1 of 2 - 2-dose childhood series) [facility] Start: 1993 Hepatitis C screening Hepatitis C sc reen [facility] Bacteria identified Cx Nom (U) Urine Culture Microbiology STAT 11/28/2018 9:39 PM EDT [place] CBC CBC Lab Routine Daily until discontinued starting 11/30/2018, 1 completed [place] Comment on above: Daily until disconti nued starting 11/30/2018, 1 completed Comprehensive Metabo lic Panel w/ Reflex to MG Comprehensive Metabolic Panel w/ Reflex to MG Lab Routine Daily until discontinued starting 11/30/2018, 1 completed [place] Comment on above: Daily until disconti nued starting 11/30/2018, 1 completed Culture blood #1 Culture blood # 1 Microbiology STAT 11/28/2018 7:30 PM EDT [place] Culture Blood #2 Culture Blood # 2 Microbiology Routine 11/29/2018 8:20 AM EDT [place] EKG 12 lead EKG 12 lead ECG STAT 11/28/2018 7:50 PM EDT [place] Initiate Oxygen Ther apy Protocol Initiate Oxygen Therapy Protocol Respiratory Care Routine Daily until discontinued starting 11/29/2018 [place] Comment on above: Daily until disconti nued starting 11/29/2018 End: 12-02-2018 Vancomycin, trough Vancomycin, trough Lab Timed One Time for 1 Occurrences starting 12/02/2018 until 12/02/2018 [place] Comment on above: One Time for 1 Occur rences starting 12/02/2018 until 12/02/2018 Payers Date Payer Category Payer Private Health Insurance 2018 Unknown [id number] 2018 Unknown xxxxxxxxxxxx [id number] 2014 Unknown [id number] 1993 Unknown [id number] 2.16.8 [id number] 1993 Unknown [id number] 2.16.8 [id number] 1993 Unknown [id number] 2.16.8 [id number] 1993 Unknown [id number] 2.16.8 40.1.393612.3.579.2.175 1993 Unknown [id number] 2.16.84 0.1.041347.3.579.2.593 1993 Unknown [id number] 2.16.84 0.1.553934.3.579.2.593 1993 Unknown [id number] 2.16.84 0.1.800258.3.579.2.593 1993 Unknown [id number] 2.16.84 0.1.006556.3.579.2.593 1993 Unknown [id number] 2.16.84 0.1.461254.3.579.2.593 1993 Unknown [id number] 2.16.84 0.1.455680.3.579.2.593 1993 Unknown [id number] 2.16.84 0.1.381866.3.579.2.593 1993 Unknown [id number] 2.16.84 0.1.791504.3.579.2.593 1993 Unknown [id number] 2.16. [id number] 1993 Unknown [id number] 2.16. [id number] 1993 Unknown [id number] 2.16. [id number] 1959 Medicaid [id number] 1961 Self-pay [id number] 1959 Unknown [id number] Social History Date Type Detail Facility Start: 11-25-2018 End: 11-28-2018 Tobacco smoking status NDIS Current every day smoker [facility] Start: 11-28-2018 Alcohol intake Not Currently [facility] [place] Start: 1993 Sex Assigned At Not on file [facility] Start: 11-25-2018 End: 11-28-2018 [facility] Start: 11-28-2018 Alcohol intake [place] ([place] Start: 09-17-2018 Cigarettes smoked current (pack per day) - Reported [facility] Start: 09-17-2018 History SDOH Alcohol Frequency 1 [facility] Evaluation note Note Date & Type Note Facility Evaluation note Diagnosis Abnormal menstrual periods documented in this encounter [employer] Phone: Summary Purpose Family History No Family History Records FoundNo Family History Records FoundNo Family History Records FoundNo Family History Records FoundNo Family History Records FoundNo Family History Records Found Advance Directives No Advanced Directives Records FoundDocuments on File Type Date Recorded Patient Collection Teller Expl anation Advance Directives and Living Will Power of Inbound Sales Advisor Latest Code Status on File Code Status Date Activated Date Inactivated Comments Full Code 11/28/2018 11:54 PM Full Code 11/25/2018 5:09 AM 11/25/2018 10:15 PM Full Code 11/25/2018 3:30 AM 11/25/2018 5:09 AM Documents on File Type Date Recorded Patient Collection Teller Expl anation ACP-Advance Directive ACP-Power of Inbound Sales Advisor Latest Code Status on File Code Status Date Activated Date Inactivated Comments Full Code 11/28/2018 11:54 PM 11/30/2018 4:25 PM Documents on File Type Date Recorded Patient Collection Teller Expl anation Advance Directives and Livin g Will 09/17/2018 12:02 AM Discharge Instructions * Instructions* Dona Vargas RN - 11/30/2018 Follow up with OB as scheduled Stay hydrated Elevated leg while sitting/laying As needed miralax for constipation documented in this encounter* Attachments The following attachments cannot be sent through Care Everywhere. * : Vaginal Bleeding (Azeri) documented in this encounter History of Present [...] when pt backin bed. * Argenis Daniel [facility] - 11/30/2018 7:23 AM EDT [facility] Department Pharmacy Vancomycin Consult: Vancomycin Day: [...] bedside at this time. Patient resides in [place] with her parents. She uses no DME and has no outside services or community resources currently in place. Patient is employed at [employer] but is currently off work. Patient does drive, provides for her own transportation needs. PCP is Dr. Osullivan. Patient denies having difficulty with affording her medications. Plan for Patient is home upon discharge. She is interested in pursuing Advanced Directives. Educational pamphlet provided at this time. Referral made to Past[facility] to follow up with this request. PHOTOGRAPHY INTERN to monitor for discharge needs and assist as they arise. ULICES Shelby 11/29/2018 * Florinda Muir RN - 11/29/2018 11:09 AM EDT Unsuccessful attempt x2 for new IV access. Candy Dipper called and will be up to attempt. [...] 5. Fluid Accumulation-Mild fluid accumulation, Extremities 6. Beauty Sales Advisor Strength-Not measured Nutrition Risk Level: Moderate, Low [...] Change: , none significant per available data. [place] Body Wt: 145 lb (65.8 kg), % [place] Body 255% BMI Classification: BMI > or [...] Pertinent Labs, Weight, Patient/Family Education Contact Number: [id number] * Florinda Muir RN - 11/29/2018 8:30 AM EDT Glue Bone Crusher called into room by lab, patient c/o [...] Spoke with Dr. Pond regarding consult to TABBER. She is aware of patient, and will speak with Andres DOW in the morning. * Epi Jacques [facility] - 11/28/2018 9:25 PM EDT [...] consult. Will continue to follow. Epi Jacques [facility] 11/28/2018 9:25 PM documented in this [...] section and content) DATE CREATED AUTHOR 11/17/2018 [facility] DATE CREATED AUTHOR AUTHOR'S ORGANIZ ATION 12/04/2018 [facility] DATE CREATED AUTHOR AUTHOR'S ORGANIZ ATION 04/30/2021 [facility] DATE CREATED AUTHOR AUTHOR'S ORGANIZ ATION 05/14/2022 [facility] dical Specialist DATE CREATED AUTHOR AUTHOR'S ORGANIZ ATION 07/21/2022 [facility] pital DATE CREATED AUTHOR AUTHOR'S ORGANIZ ATION 08/14/2023 [facility] Reason for Visit (unrecogniz ed section and content) Reason Comments Fatigue BEGAN 1730 TODAY, po st x3 days, baby born at 22 weeks, Chills Fever Status Reason Specialty Diagnoses / Procedures Referre d By Contact Referred To Contact Diagnoses Sepsis (HCC) Sepsis (HCC) Brenton Horton MD [address] [place] [address], [place] [address] [facility] Reason Comments Vaginal Bleeding Zo Bee RN - 09/17/2018 12:03 AM EDT ED Notes (unrecognized secti on and content) Bleeding started within the last hour, pt is 11weeks and 5 days. Pt states bleeding is only when she wipes after using the rest room. documented in this encounter Care Teams (unrecognized sec tion and content) Cover Remover Relationship Specialty Start Date End Date Mike Osullivan MD [address] [id number] PCP - General Family Medicine 11/24/18 FOR [...] BE BASED ON THE PRIMARY CLINICAL RECORDS. [employer] provides no warranty or guarantee of the accuracy or completeness of information in this document.
[2024-01-22 14:21] LABS: Influenza Virus A Antigen Negative; Influenza Virus B Antigen Negative; Internal Control Within Normal Limits; SARS-CoV-2 Ag NEGATIVE (NEGATIVE)
--- NOTE | 2024-01-22 14:36 | ECG_ITS ---
The [facility] Test Date: 2024-01-22 Pat Name: DEION HUITRON Department: Room: - Gender: Female Bill Sorter: : 1995 Requested By: MIKE ALICIA Order Number: [id number] Reading MD: MIKE ALICIA Measurements Intervals [place] Rate: 109 P: 46 NM: 150 QRS: 53 QRSD: 78 T: 26 QT: 300 QTc: 364 Interpretive Statements 1120 Sinus tachycardia Non-Specific T wave inversion in III 9140 abnormal rhythm ECG Compared to ECG 06/07/2021 00:07:22 Sinus rhythm no longer present Sinus arrhythmia no longer present Electronically Signed On 01-23-2024 7:17:54 EST by MIKE ALICIA
[2024-01-22 15:05] LABS: Bilirubin Urine NEGATIVE (NEGATIVE); Blood Urine NEGATIVE (NEGATIVE); Clarity Urine CLEAR (CLEAR); Color Urine LT. YELLOW (YELLOW); Glucose Urine UA NEGATIVE (NEGATIVE); Ketones Urine NEGATIVE (NEGATIVE); Leukocyte Esterase Urine NEGATIVE (NEGATIVE); Nitrite Urine NEGATIVE (NEGATIVE); Protein Urine NEGATIVE (NEG/TRACE); Specific Gravity Urine 1.025 (1.005-1.025); Urobilinogen Urine 0.2 EU/dL (0.2-1.0); pH Urine 5.5 (5.0-9.0)
[2024-01-22 15:05] LABS: Basophils Percent Auto 0.3 % (0.2-2.0); Eosinophils Percent Auto 0.3 % (0.9-7.0); Hematocrit 41.1 % (36.0-48.0); Hemoglobin 13.4 g/dL (12.0-16.0); Immature Granulocytes Abs Auto 0.06 10^3/uL (0.00-0.03); Immature Granulocytes Pct Auto 0.4 % (0.0-0.5); Lymphocytes Absolute Auto 0.8 10^3/uL (1.2-3.8); Lymphocytes Percent Auto 5.5 % (20.5-60.0); Mean Corpuscular HGB Conc 32.6 g/dL (29.9-35.2); Mean Corpuscular Hemoglobin 28.8 pg (26.7-34.0); Mean Corpuscular Volume 88.2 fL (81.0-99.0); Mean Platelet Volume 9.7 fL (9.5-13.5); Monocytes Absolute Auto 0.5 10^3/uL (0.3-0.8); Monocytes Percent Auto 3.7 % (1.7-12.0); Neutrophils Absolute Auto 12.9 10^3/uL (1.4-6.5); Neutrophils Percent Auto 89.8 % (43.0-75.0); Platelet Count 283 10^3/uL (150-450); Red Blood Count 4.66 10^6/uL (4.20-5.40); Red Cell Distribution Width 13.1 % (11.0-15.0); White Blood Count 14.4 10^3/uL (4.0-11.0)
[2024-01-22 15:09] LABS: Urine Microscopic Indicated NO
[2024-01-22 15:20] LABS: D Dimer 0.58 mg/L FEU (<=0.59)
[2024-01-22 15:20] LABS: Internal Control Within Normal Limits; Strep A Antigen Screen Negative
[2024-01-22 15:21] LABS: Lactate/Lactic Acid 1.7 mmol/L (0.4-2.0)
[2024-01-22 15:27] LABS: Alanine Aminotransferase 48 U/L (14-59); Albumin Globulin Ratio 0.8; Albumin Level 3.2 g/dL (3.4-5.0); Alkaline Phosphatase 66 U/L (46-116); Anion Gap 13.7; Aspartate Amino Transferase 28 U/L (15-37); BUN Creatinine Ratio 8.7; Bilirubin Total 0.5 mg/dL (0.2-1.0); Calcium 8.7 mg/dL (8.5-10.1); Carbon Dioxide 24.9 mmol/L (21.0-32.0); Chloride 104 mmol/L (98-107); Estimated GFR (African America >60 (>=60 mL/min/1.73m^2); Estimated GFR (Non-African Ame >60 (>=60 mL/min/1.73m^2); Globulin 3.9 g/dL; Glucose 118 mg/dL (74-106); Potassium 3.6 mmol/L (3.5-5.1); Sodium 139 mmol/L (136-145); Total Protein 7.1 g/dL (6.4-8.2); Troponin I High Sensitivity 8.7 pg/mL (4.0-51.3)
[2024-01-22 15:32] LABS: HCG Qualitative NEGATIVE (NEGATIVE); Internal Control Within Normal Limits
[2024-01-22] MEDS: ONDANSETRON PF 4 MG/2 ML VIAL 8 MG IV (15:34)
[2024-01-22] MEDS: 0.9 % SODIUM CHLORIDE 1,000 ML 1000 ML IV (15:34)
--- NOTE | 2024-01-22 15:49 | CT_ITS ---
The [address] [address] Patient Name: DEION HUITRON MRN: [id number] date: 1995 Sex: F Assigned Patient Location: ER Current Patient Location: ER Accession/Order Number: [id number] Exam Date: 01/22/2024 16:00 Report Date: 01/22/2024 17:48 At the request of: GONZALEZ DURAN Procedure: CT chest wo con EXAMINATION: CT chest wo con, 01/22/2024 4:00 PM EST HISTORY: infection , shortness of breath COMPARISON: Xray chest from 01/22/2024 . TECHNIQUE: CT scan of the chest was performed without IV contrast. Coronal and sagittal reconstructions were performed. CT dose reduction technique was used, including Automated Exposure Control. FINDINGS: The lung windows demonstrate minimal dependent atelectasis. Some of the images are partially limited by motion/breathing artifacts. No focal consolidation or pulmonary edema. The central tracheobronchial airways are patent. Overall low lung volumes. No coronary artery calcification. The mediastinal windows demonstrate no enlarged hilar or mediastinal lymph node. The esophagus is nondilated. No pleural or pericardial effusion. Unremarkable pulmonary artery. Minimal atherosclerotic calcification of the thoracic aorta. The bone windows demonstrate no acute osseous findings. Scans through the upper abdomen show mild hepatic steatosis. CT/CT chest wo con IMPRESSION: 1. No acute findings in the chest. 2. Mild hepatic steatosis. Electronically authenticated by: MELVIN ARRIAGA Date: 01/22/2024 17:48
--- NOTE | 2024-01-22 15:50 | ED_ITS ---
HPI HPI - General Adult General Chief complaint: Upper Respiratory Infection Stated complaint: SHORTNESS OF BREATH/GENERAL WEAKNESS Time Seen by Provider: 01/22/24 14:14 Mode of arrival: walk-in History of Present Illness HPI narrative: The patient is 28 years old with a history of be more is coming to us with chills since yesterday, she also has some sore throat , some decrease in p.o. intake and some cough The patient have some chronic back pain with no burning with urination no abdominal pain No exposure to anybody with similar send Related Data Previous Rx's ?Medication ?Instructions ?Recorded azithromycin 250 mg tablet See Rx Instructions PO .COMPLEX #6 01/22/24 (Zithromax Z-Will) tabs famotidine 20 mg tablet (Pepcid) 20 mg PO BID #10 tabs 01/22/24 ondansetron 4 mg disintegrating 4 mg PO Q8H PRN nausea and 01/22/24 tablet vomiting 24 hours #3 tabs Allergies Allergy/AdvReac Type Severity Reaction Status Date / Time docosanol (From Abreva) Allergy Mild SWELLING Verified 08/08/23 09:16 sulfamethoxazole (From Allergy Verified 08/08/23 09:16 Bactrim) trimethoprim (From Bactrim) Allergy Verified 08/08/23 09:16 Opioid HPI Opioid Management Most Recent Opioid Data: Last Pain Scale 1 08/08/23 09:19 08/08/23 Review of Systems ROS Status of ROS 10 or more systems reviewed and unremark able except as noted in history and below PFSH PFS Medical History (Updated 01/22/24 @ 18:04 by Daisy Campbell MD) History of stress test ?Z92.89 - Personal history of other medical treatment (ICD-10) Low back pain ?M54.50 - Low back pain, unspecified (ICD-10) Anxiety ?F41.9 - Anxiety disorder, unspecified (ICD-10) Obesity ?E66.9 - Obesity, unspecified (ICD-10) Asthma ?J45.909 - Unspecified asthma, uncomplicated (ICD-10) Palpitations ?R00.2 - Palpitations (ICD-10) Surgical History History of wisdom tooth extraction ?K08.409 - Partial loss of teeth, unspecified cause, unspecified class (ICD- 10) Social History Smoking status: Current every day smoker Little interest or pleasure in doing things: not at all Feeling down, depressed, or hopeless: not at all Exam Narrative Exam Narrative: Nurses notes and vital signs reviewed and patient is not hypoxic. General: Well-appearing and in no apparent distress. Skin: Warm, dry, no pallor noted. No rash. Head: Normocephalic, atraumatic. Neck: Supple, non-tender. Eye: Pupils are equal, round and EOMI. No scleral icterus. Ears, Nose, Mouth, and Throat: TM are clear, no nasal mucosal hypertrophy. Oral mucosa is moist, bilateral tonsillar erythema noted with some white exudate in the left side,, uvula is mid-line Cardiovascular: Regular Rate and Rhythm without murmur, gallop or rub. Respiratory: No accessory muscle use or respiratory distress. Lungs are clear to auscultation, no wheezing, rales or rhonchi Chest Wall: no tenderness Back: No midline thoracic or lumbar vertebral tenderness. No CVA tenderness Musculoskeletal: normal ROM, no calf or popliteal tenderness, no lower extremity edema/swelling GI: Abdomen is soft, non-distended. Normal bowel sounds. No masses appreciated. No tenderness to palpation. No rebound, guarding, or rigidity noted. Neurological: A&O x4. No cranial nerve dysfunction observed. No truncal ataxia. Moves all extremities. Sensation intact. Psychiatric: Cooperative and interactive. Normal mood and affect. Constitutional Vital Signs, click to edit/add: Last Vital Signs Temp 98.9 F 01/22/24 17:01 Pulse 117 H 01/22/24 13:55 Resp 18 01/22/24 13:55 BP 180/90 H 01/22/24 13:55 Pulse Ox 97 01/22/24 13:55 O2 Del Method Room Air 01/22/24 13:55 Course Vital Signs Vital signs: Vital Signs Temperature 101.2 F H 01/22/24 13:55 Pulse Rate 117 H 01/22/24 13:55 Respiratory Rate 18 01/22/24 13:55 Blood Pressure 180/90 H 01/22/24 13:55 Pulse Oximetry 97 01/22/24 13:55 Oxygen Delivery Method Room Air 01/22/24 13:55 Temperature 98.9 F 01/22/24 17:01 Pulse Rate 117 H 01/22/24 13:55 Respiratory Rate 18 01/22/24 13:55 Blood Pressure 180/90 H 01/22/24 13:55 Pulse Oximetry 97 01/22/24 13:55 Oxygen Delivery Method Room Air 01/22/24 13:55 Medical Decision Making MDM Narrative Medical decision making narrative: The patient EKG in the ER showing sinus tachycardia with heart rate 109 when she presented to us no ST elevation or depression The patient CBC shows leukocytosis of 14 The chemistry does not show any significant acute pathology Lactic acid was within normal Right now the patient was provided with 1 L of fluid as well as Toradol for pain and Zofran in addition to cover her for possible initially infection with that chest x-ray was not conclusive CAT scan of the chest does not show any acute pathology Urinalysis did not show any acute pathology Patient heart rate improved she have no fever at the moment and the she was discharged after the CAT scan did not show any acute pathology with antibiotic that will cover for possible strep pharyngitis The patient had a negative strep test at the moment but there is a high possibility with her presentation that we did continue to strep pharyngitis The patient was discharged with instruction of supportive care with Zofran as well as Pepcid in addition to the Z-Will The patient is to follow up with primary care physician in next 2-3 days or to return to the emergency department should any of the signs or symptoms worsen or new symptoms develop. The patient agrees with the following Diagnosis and Treatment plan and the patient will be discharged home. Lab Data Labs: Lab Results 01/22/24 01/22/24 01/22/24 Range/Units 14:01 14:53 14:55 WBC 14.4 H (4.0-11.0) 10^3/uL RBC 4.66 (4.20-5.40) 10^6/uL Hgb 13.4 (12.0-16.0) g/dL Hct 41.1 (36.0-48.0) % MCV 88.2 (81.0-99.0) fL MCH 28.8 (26.7-34.0) pg MCHC 32.6 (29.9-35.2) g/dL RDW 13.1 (11.0-15.0) % Plt Count 283 (150-450) 10^3/uL MPV 9.7 (9.5-13.5) fL Neut % (Auto) 89.8 H (43.0-75.0) % Lymph % (Auto) 5.5 L (20.5-60.0) % Ev[place]eline % (Auto) 3.7 (1.7-12.0) % Eos % (Auto) 0.3 L (0.9-7.0) % Baso % (Auto) 0.3 (0.2-2.0) % Neut # (Auto) 12.9 H (1.4-6.5) 10^3/uL Lymph # (Auto) 0.8 L (1.2-3.8) 10^3/uL Ev[place]eline # (Auto) 0.5 (0.3-0.8) 10^3/uL Eos # (Auto) 0.0 (0.0-0.7) 10^3/uL Baso # (Auto) 0.0 (0.0-0.1) 10^3/uL Abs Immat Gran (auto) 0.06 H (0.00-0.03) 10^3/uL Imm/Tot Granulo (auto) 0.4 (0.0-0.5) % D-Dimer 0.58 (<=0.59) mg/L FEU Sodium 139 (136-145) mmol/L Potassium 3.6 (3.5-5.1) mmol/L Chloride 104 (98-107) mmol/L Carbon Dioxide 24.9 (21.0-32.0) mmol/L Anion Gap 13.7 BUN 9.0 (7.0-18.0) mg/dL Creatinine 1.04 H (0.55-1.02) mg/dL Est GFR ( Amer) >60 (>=60 mL/min/1.73m^2) Est GFR (Non-Af Amer) >60 (>=60 mL/min/1.73m^2) BUN/Creatinine Ratio 8.7 Glucose 118 H (74-106) mg/dL Lactate 1.7 (0.4-2.0) mmol/L Calcium 8.7 (8.5-10.1) mg/dL Total Bilirubin 0.5 (0.2-1.0) mg/dL AST 28 (15-37) U/L ALT 48 (14-59) U/L Alkaline Phosphatase 66 (46-116) U/L Troponin I High Sens 8.7 (4.0-51.3) pg/mL Total Protein 7.1 (6.4-8.2) g/dL Albumin 3.2 L (3.4-5.0) g/dL Globulin 3.9 g/dL Albumin/Globulin Ratio 0.8 Serum HCG, Qual Negative (NEGATIVE) Urine Color Lt. yellow (YELLOW) Urine Clarity Clear (CLEAR) Urine pH 5.5 (5.0-9.0) Ur Specific [place] 1.025 (1.005-1.025) Urine Protein Negative (NEG/TRACE) mg/dL Urine Glucose (UA) Negative (NEGATIVE) mg/dL Urine Ketones Negative (NEGATIVE) mg/dL Urine Occult Blood Negative (NEGATIVE) Urine Nitrite Negative (NEGATIVE) Urine Bilirubin Negative (NEGATIVE) Urine Urobilinogen 0.2 (0.2-1.0) EU/dL Ur Leukocyte Esterase Negative (NEGATIVE) Influenza Type A Ag Negative Influenza Type B Ag Negative SARS-CoV-2 Ag (CV2AG) Negative (NEGATIVE) Streptococcus Screen 01/22/24 Range/Units 15:01 WBC (4.0-11.0) 10^3/uL RBC (4.20-5.40) 10^6/uL Hgb (12.0-16.0) g/dL Hct (36.0-48.0) % MCV (81.0-99.0) fL MCH (26.7-34.0) pg MCHC (29.9-35.2) g/dL RDW (11.0-15.0) % Plt Count (150-450) 10^3/uL MPV (9.5-13.5) fL Neut % (Auto) (43.0-75.0) % Lymph % (Auto) (20.5-60.0) % [place] % (Auto) (1.7-12.0) % Eos % (Auto) (0.9-7.0) % Baso % (Auto) (0.2-2.0) % Neut # (Auto) (1.4-6.5) 10^3/uL Lymph # (Auto) (1.2-3.8) 10^3/uL [place] # (Auto) (0.3-0.8) 10^3/uL Eos # (Auto) (0.0-0.7) 10^3/uL Baso # (Auto) (0.0-0.1) 10^3/uL Abs Immat Gran (auto) (0.00-0.03) 10^3/uL Imm/Tot Granulo (auto) (0.0-0.5) % D-Dimer (<=0.59) mg/L FEU Sodium (136-145) mmol/L Potassium (3.5-5.1) mmol/L Chloride (98-107) mmol/L Carbon Dioxide (21.0-32.0) mmol/L Anion Gap BUN (7.0-18.0) mg/dL Creatinine (0.55-1.02) mg/dL Est GFR ( Amer) (>=60 mL/min/1.73m^2) Est GFR (Non-Af Amer) (>=60 mL/min/1.73m^2) BUN/Creatinine Ratio Glucose (74-106) mg/dL Lactate (0.4-2.0) mmol/L Calcium (8.5-10.1) mg/dL Total Bilirubin (0.2-1.0) mg/dL AST (15-37) U/L ALT (14-59) U/L Alkaline Phosphatase (46-116) U/L Troponin I High Sens (4.0-51.3) pg/mL Total Protein (6.4-8.2) g/dL Albumin (3.4-5.0) g/dL Globulin g/dL Albumin/Globulin Ratio Serum HCG, Qual (NEGATIVE) Urine Color (YELLOW) Urine Clarity (CLEAR) Urine pH (5.0-9.0) Ur Specific [place] (1.005-1.025) Urine Protein (NEG/TRACE) mg/dL Urine Glucose (UA) (NEGATIVE) mg/dL Urine Ketones (NEGATIVE) mg/dL Urine Occult Blood (NEGATIVE) Urine Nitrite (NEGATIVE) Urine Bilirubin (NEGATIVE) Urine Urobilinogen (0.2-1.0) EU/dL Ur Leukocyte Esterase (NEGATIVE) Influenza Type A Ag Influenza Type B Ag SARS-CoV-2 Ag (CV2AG) (NEGATIVE) Streptococcus Screen Negative Discharge Plan Discharge Chief Complaint: Upper Respiratory Infection Clinical Impression: Pharyngitis, Dehydration Patient Disposition: Home, Self-Care Time of Disposition Decision: 18:04 Condition: Good Prescriptions / Home Meds: New ondansetron 4 mg tablet,disintegrating 4 mg PO Q8H PRN (Reason: nausea and vomiting) 1 Days Qty: 3 0RF famotidine [Pepcid] 20 mg tablet 20 mg PO BID Qty: 10 0RF azithromycin [Zithromax Z-Will] 250 mg tablet See Rx Instructions .ROUTE .COMPLEX Qty: 6 0RF Rx Instructions: For 250 mg dose pack: take 500 mg today (day 1), then 250 mg for 4 days (days 2-5) Print Language: Mongolian Instructions: Dehydration (DC), Pharyngitis (ED) Referrals: Shashi Osullivan MD [Primary Care Provider] - 1 week
[2024-01-22] MEDS: CEFTRIAXONE 2,000 MG in 0.9 % SODIUM CHLORIDE 100 ML 200 MG IV (16:18)
[2024-01-22 17:01] VITALS: TEMP 37.2
[2024-01-22] MEDS: AZITHROMYCIN 500 MG in 0.9 % SODIUM CHLORIDE 250 ML 250 MG IV (17:20)
[2024-01-22] MEDS: KETOROLAC TROMETHAMINE 30 MG/ML VIAL IVP (17:33)
[2024-01-22 19:20] VITALS: BP 128/67; PULSE 110; TEMP 38.2; O2SAT 94
== END 2024-01-22 19:20 | disposition home or self-care (01) ==
PROVIDERS: Emergency Provider Emergency Medicine; PCP Family Medicine
DX: E86.0 Dehydration (principal); J02.9 Acute pharyngitis, unspecified; F17.200 Nicotine dependence, unspecified, uncomplicated
CPT/HCPCS: 36415; 71045; 71250; 80053; 81003; 83605; 84484; 84703; 85025; 85378; 87070; 87804; 87811; 87880; 93005; 96361; 96365; 96366; 96367; 96375; 99285; J0456; J0696; J1885; J2405

== ENCOUNTER 2024-01-24 09:11 | Outpatient (OUT) | payer OTHER, SELFPAY ==
--- NOTE | 2024-01-24 09:23 | US_ITS ---
[place] [id number] Patient Name: DEION HUITRON MRN: [id number] date: 1995 Sex: F Assigned Patient Location: RAD Current Patient Location: [facility] Accession/Order Number: [id number] Exam Date: 01/24/2024 09:30 Report Date: 01/24/2024 10:11 At the request of: MIKE ALICIA Procedure: US venous doppler LE RT EXAM: US venous doppler LE RT HISTORY: Cellulitis COMPARISON: None. TECHNIQUE: Grayscale, color and Doppler FINDINGS: Region: Right leg Thrombus: None Flow: Normal Augmentation: Normal Compressibility: Normal Other: Subcutaneous edema corresponding to the patient's pain and erythema US/US venous doppler LE RT IMPRESSION: Subcutaneous edema No deep or superficial vein thrombus in the right leg Electronically authenticated by: LIN IBANEZ Date: 01/24/2024 10:11
== END 2024-01-24 09:12 | disposition home or self-care (01) ==
LOC: RAD 09:13
PROVIDERS: PCP Family Medicine; Visit Provider Family Medicine
DX: L03.115 Cellulitis of right lower limb (principal); L03.90 Cellulitis, unspecified
CPT/HCPCS: 93971

== ENCOUNTER 2024-05-28 21:03 | Outpatient (OUT) | payer OTHER, SELFPAY ==
--- OUTSIDE RECORDS SUMMARY | 2024-05-28 21:05 | XMS_ITS | CCD ---
Author Organization [facility] [employer] Care Team Providers Care Sword Swallower Name Role Phone JENNIFER VIVAR Attending Unavailable HOY, MIKE Primary Care Unavailable Vincenty, Mike M Primary Care Provider RAVIN MIKE M Primary Care Unavailable JENNIFER HEDRICK Admitting Unavailable JENNIFER HEDRICK Attending Unavailable RAVIN, MIKE M Primary Care Unavailable BRENTON HORTON Admitting Unavailable BRENTON HORTON Attending Unavailable LARISSA SAMPSON Consulting Unavail able RADHA STEPHENSERIE Admitting Unavailable RADHA STEPHENSERIE Attending Unavailable Ravin, Mike M Primary Care Provider [phone] Rony Osullivanlas Primary Care Provider [phone] Mike Osullivan MD Primary Care Provider [phone] VADIM LOVELACE Referring Unavailable HOY, MIKE [...] Primary Care Unavailable DR ÁNGEL BABIN Admitting Unavailabl e OLAF, DR ÁNGEL Garcia Attending Stiven BABIN, DR ÁNGEL Garcia Consulting MIKE Huffman Primary Care Unavailable ADALID PEREZ Consulting Unavailable Deondre SHI, Wolf Martinez Attending Unavailable Deondre SHI, Wolf Martinez Attending Unavailable Deondre SHI, Wolf Martinez Attending Unavailable Allergies Allergy Classification Reported Allergen(s) Allergy Type Date of Onset Reaction(s) Facility (6 sources) docosanol; Translations: [Unknown] Drug Allergy 9 Swelling [facility] Repository (1 source) docosanol Drug Allergy [facility] Repository (1 source) Sulfamethoxazole / Trimethoprim Drug Allergy 0 [facility] Repository (1 source) Sulfamethoxazole Drug Allergy 4 [facility] (1 source) Trimethoprim Drug Allergy 4 [facility] Medications Current Medications Medication Drug Class(es) Dates [...] every week vitamin D (ERGOCALCIFEROL) 1.25 MG (77012 UT) CAPS capsule Take 1 capsule by [...] Starting Tue11/28/18 at 2353 polyethylene glycol 3350 11623 mg powder for oral solution (1 source) [...] chloride 9 mg/ml injection (6 sources) Start: 019 10 mL, Intravenous, EVERY 12 HOURS [...] by Hitesh Norman on 05/13/2022 1439 Normal [facility] 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 When there are no FDA-approved or cleared tests available, and other criteria are met, FDA can make tests available under an emergency access mechanism called an Emergency Use Authorization (EUA). The EUA for this test is supported by the [place] of Health and Human Service's declaration that [...] used). Performed By: #### C VDTBH #### [facility] [address] [place] [address] Dr. Lilli Soriano INFLUENZA A AND B AGon 03-18 [facility] SEE BELOW Normal [facility] Comment on above: Result Comment: Nega tive for Flu A protein angiten. Infection due to Flu A cannot be ruled out. Flu A angiten in the sample may be below the detection limit of the test. Performed By: #### I NFLUAB #### [facility] [address] [place] [address] Dr. Lilli Soriano INFLUBNEG SEE BELOW Normal [facility] Comment on above: Result Comment: Nega tive for Flu B protein antigen. Infection due to Flu B cannot be ruled out. Flu B antigen in the sample may be below the detection limit of the test. Performed By: #### I NFLUAB #### [facility] [address] [place] [address] Dr. Lilli Soriano INFLUENZA A AG Negative Normal NEGATIVE SEE COMMENT [facility] Comment on above: Performed By: #### I NFLUAB #### [facility] [address] [place], [place] [address] Dr. Lilli Soriano INFLUENZA B AG Negative Normal NEGATIVE SEE COMMENT [facility] Comment on above: Performed By: #### I NFLUAB #### [facility] [address] [place], [place] [address] Dr. Lilli Soriano US Pelvic, Transvaginalon US [...] by Burton Mcdaniel on 12/24/2021 0958 Normal [facility] Specialist Covid-19 PCR (CVDTBH)on 11-21 SARS-CoV-2 (COVID-19) RNA CLIFF+probe Ql (Unsp spec) Not detected Normal NOT DETECTED [facility] Comment on above: Result Comment: This test is not yet approved or cleared by the [place] FDA. When there are no FDA-approved or cleared tests available, and other criteria are met, FDA can make tests available under an emergency access mechanism called an Emergency Use Authorization (EUA). The EUA for this test is supported by the [place] of Health and Human Service's (HHS's) declaration [...] consistent with SARS-CoV-2. Performed By: #### C [facility] #### [facility] [address] [place] [address] Dr. Lilli Soriano VC VENOUS REFLUX GRACIELA LMTon 0 12-04-2021 VC VENOUS REFLUX GRACIELA LMT Patient: DEION CUMMINGS Exam Date: 12/04/2021 : 1995 Gender:F Ordering : DR MIKE OSULLIVAN . Admission #: [id number] Family : Order #: [id number] CLICK HERE TO VIEW EXAM RADIOLOGY REPORT [...] chronic thrombus visualized. 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 Dist/med [...] on 12/04/2021 at 09:37 Normal [facility] INSULINon 11-26-2021 Insulin 21.8 uIU/mL Normal 2.6-24.9 [facility] Comment on above: Performed By: #### I NSULIN #### [facility] [address] [place] [address] Dr. Lilli Soriano T4, T3U, FTI LABCORPon 11-26 Free Thyroxine Index 2.2 Normal 1.2-4.9 [facility] Comment on above: Performed By: #### B SOFA INSPECTOR, TSH, LIPID, CMP #### [facility] [address] [place] [address] Dr. Lilli Soriano T3 Uptake 30 % Normal 24-39 [facility] Comment on above: Performed By: #### B SOFA INSPECTOR, TSH, LIPID, CMP #### [facility] [address] [place] [address] [address] Lilli Soriano T4 [Mass/Vol] 7.3 ug/dL Normal 4.5-12.0 [facility] [place] [facility] Comment on above: Performed By: #### B SOFA INSPECTOR, TSH, LIPID, CMP #### [facility] [address] [place] [address] Dr. Lilli Soriano BNPon 11-25-2021 Natriuretic peptide B (Bld) [Mass/Vol] 35.0 pg/mL Normal <=450.0 [facility] Comment on above: Performed By: #### B SOFA INSPECTOR, TSH, LIPID, CMP #### [facility] [address] [place] [address] Dr. Lilli Soriano CBC AUTO DIFFon 11-25-2021 BASO # 0.0 103/ul Normal 0.0-0.1 [facility] Comment on above: Performed By: #### B SOFA INSPECTOR, TSH, LIPID, CMP #### [facility] [address] [place] [address] Dr. Lilli Soriano Basophils/100 WBC (Bld) 0.5 % Normal 0.2-2.0 [facility] Comment on above: Performed By: #### B SOFA INSPECTOR, TSH, LIPID, CMP #### [facility] [address] [place] [address] Dr. Lilli Soriano EO # 0.1 103/ul Normal 0.0-0.7 [facility] Comment on above: Performed By: #### B SOFA INSPECTOR, TSH, LIPID, CMP #### [facility] [address] [place] [address] Dr. Lilli Soriano Eosinophils/100 WBC (Bld) 1.7 % Normal 0.9-7.0 [facility] Comment on above: Performed By: #### B SOFA INSPECTOR, TSH, LIPID, CMP #### [facility] [address] [place] [address] Dr. Lilli Soriano Erythrocyte distribution width (RBC) [Ratio] 13.6 % Normal 11.0-15.0 [facility] Comment on above: Performed By: #### B SOFA INSPECTOR, TSH, LIPID, CMP #### [facility] [address] [place] [address] Dr. Lilli Soriano Hematocrit (Bld) [Volume fraction] 42.6 % Normal 36.0-48.0 [facility] Comment on above: Performed By: #### B SOFA INSPECTOR, TSH, LIPID, CMP #### [facility] [address] [place] [address] Dr. Lilli Soriano Hemoglobin (Bld) [Mass/Vol] 13.6 g/dL Normal 12.0-16.0 [facility] Comment on above: Performed By: #### B SOFA INSPECTOR, TSH, LIPID, CMP #### [facility] [address] [place] [address] Dr. Lilli Soriano IG # 0.04 10e3/ul Critically high 0.00-0.03 [facility] Comment on above: Performed By: #### B SOFA INSPECTOR, TSH, LIPID, CMP #### [facility] [address] [place] [address] Dr. Lilli Soriano IG % 0.5 % Normal 0.0-0.5 [facility] Comment on above: Performed By: #### B SOFA INSPECTOR, TSH, LIPID, CMP #### [facility] [address] [place] [address] Dr. Lilli Soriano LYMPH # 1.7 103/ul Normal 1.2-3.8 [facility] Comment on above: Performed By: #### B SOFA INSPECTOR, TSH, LIPID, CMP #### [facility] [address] [place] [address] Dr. iLlli Soriano Lymphocytes/100 WBC (Bld) 19.9 % Critically low 20.5-60.0 [facility] Comment on above: Performed By: #### B SOFA INSPECTOR, TSH, LIPID, CMP #### [facility] [address] [place] [address] Dr. Lilli Soriano MANUAL DIFF REQ NO Normal [facility] Comment on above: Performed By: #### B SOFA INSPECTOR, TSH, LIPID, CMP #### [facility] [address] [place] [address] Dr. Lilli Soriano MCH (RBC) [Entitic mass] 28.0 pg Normal 26.7-34.0 [facility] Comment on above: Performed By: #### B SOFA INSPECTOR, TSH, LIPID, CMP #### [facility] [address] [place] [address] Dr. Lilli Soriano MCHC (RBC) [Mass/Vol] 31.9 g/dL Normal 29.9-35.2 [facility] Comment on above: Performed By: #### B SOFA INSPECTOR, TSH, LIPID, CMP #### [facility] [address] [place] [address] Dr. Lilli Soriano MCV (RBC) [Entitic vol] 87.7 fL Normal 81.0-99.0 [facility] Comment on above: Performed By: #### B SOFA INSPECTOR, TSH, LIPID, CMP #### [facility] [address] [place] [address] Dr. Lilli Soriano MONO # 0.5 103/ul Normal 0.3-0.8 [facility] Comment on above: Performed By: #### B SOFA INSPECTOR, TSH, LIPID, CMP #### [facility] [address] [place] [address] Dr. Lilli Soriano Monocytes/100 WBC (Bld) 5.9 % Normal 1.7-12.0 [facility] Comment on above: Performed By: #### B SOFA INSPECTOR, TSH, LIPID, CMP #### [facility] [address] [place] [address] Dr. Lilli Soriano NEUT # 6.1 103/ul Normal 1.4-6.5 [facility] Comment on above: Performed By: #### B SOFA INSPECTOR, TSH, LIPID, CMP #### [facility] [address] [place] [address] Dr. Lilli Soriano Neutrophils/100 WBC (Bld) 71.5 % Normal 43.0-75.0 [facility] Comment on above: Performed By: #### B SOFA INSPECTOR, TSH, LIPID, CMP #### [facility] [address] [place] [address] Dr. Lilli Soriano Platelet mean volume (Bld) [Entitic vol] 9.7 fL Normal 9.5-13.5 [facility] Comment on above: Performed By: #### B SOFA INSPECTOR, TSH, LIPID, CMP #### [facility] [address] [address] [address] Lilli Soriano PLT 289 103/ul Normal 150-450 [facility] Comment on above: Performed By: #### B SOFA INSPECTOR, TSH, LIPID, CMP #### [facility] [address] [place] [address] Dr. Lilli Soriano RBC 4.86 106/ul Normal 4.20-5.40 [facility] Comment on above: Performed By: #### B SOFA INSPECTOR, TSH, LIPID, CMP #### [facility] [address] [place] [address] Dr. Lilli Soriano WBC 8.5 103/ul Normal 4.0-11.0 [facility] Comment on above: Performed By: #### B SOFA INSPECTOR, TSH, LIPID, CMP #### [facility] [address] [place] [address] Dr. Lilli Soriano CULTURE URINEon 11-25-2021 CULTURE URINE Culture Observations : LIGHT GROWTH OF MIXED GENITAL CHICA. NO POTENTIAL PATHOGENS SEEN. Normal [facility] Comment on above: Performed By: #### B SOFA INSPECTOR, TSH, LIPID, CMP #### [facility] [address] [place] [address] Dr. Lilli Soriano GLYCOHEMOGLOBIN A1Con 2021 ADA RECOMMENDATION SEE BELOW Normal [facility] Comment on above: Result Comment: ADA RECOMMENDED LIMIT 4.0 - 6.0 ADA THERAPEUTIC TARGET < 7.0 ACTION SUGGESTED > 7.0 Performed By: #### B SOFA INSPECTOR, TSH, LIPID, CMP #### [facility] [address] [place] [address] Dr. Lilli Soriano Glucose [Mass/Vol] 108 mg/dL Normal [facility] Comment on above: Performed By: #### B SOFA INSPECTOR, TSH, LIPID, CMP #### [facility] [address] [place] [address] Dr. Lilli Soriano HbA1c (Bld) [Mass fraction] 5.4 % Normal 4.5-6.2 [facility] Comment on above: Performed By: #### B SOFA INSPECTOR, TSH, LIPID, CMP #### [facility] [address] [place] [address] Dr. Lilli Soriano IRONon 11-25-2021 Iron [Mass/Vol] 47.0 ug/dL Critically low 50.0-170.0 [facility] Comment on above: Performed By: #### B SOFA INSPECTOR, TSH, LIPID, CMP #### [facility] [address] [place] [address] Dr. Lilli Soriano LIPID PROFILEon 11-25-2021 CHOL-HDL RATIO NORM SEE BELOW Normal [facility] Comment on above: Result Comment: 3.3 - 4.4 LOW RISK 4.4 - 7.1 AVERAGE RISK 7.1 - 11.0 MODERATE RISK >11.0 HIGH RISK Performed By: #### B SOFA INSPECTOR, TSH, LIPID, CMP #### [facility] [address] [place] [address] Dr. Lilli Soriano Cholesterol [Mass/Vol] 153 mg/dL Normal <=200 [facility] Comment on above: Performed By: #### B SOFA INSPECTOR, TSH, LIPID, CMP #### [facility] [address] [place] [address] Dr. Lilli Soriano Cholesterol in HDL [Mass/Vol] 56 mg/dL Normal 40-60 [facility] Comment on above: Performed By: #### B SOFA INSPECTOR, TSH, LIPID, CMP #### [facility] [address] [place] [address] Dr. Lilli Soriano Cholesterol in LDL [Mass/Vol] 88.4 mg/dL Normal [facility] Comment on above: Performed By: #### B SOFA INSPECTOR, TSH, LIPID, CMP #### [facility] [address] [place] [address] Dr. Lilli Soriano Cholesterol.total/Cho lesterol in HDL [Mass ratio] 2.7 {ratio} Normal [facility] Comment on above: Performed By: #### B SOFA INSPECTOR, TSH, LIPID, CMP #### [facility] [address] [place] [address] Dr. Lilli Soriano HDL NORMAL > or = 60 mg/dl - LO W CARDIOVASCULAR RISK <40 mg/dl - HIGH CARDIOVASCULAR RISK Normal [facility] Comment on above: Performed By: #### B SOFA INSPECTOR, TSH, LIPID, CMP #### [facility] [address] [address] [address] Lilli Soriano LDL CALC NORMAL SEE BELOW Normal [facility] Comment on above: Result Comment: <100 mg/dl OPTIMAL 100 - 129 mg/dl NEAR OR ABOVE OPTIMAL 130 - 159 mg/dl BORDERLINE HIGH 160 - 189 mg/dl HIGH >190 mg/dl VERY HIGH Performed By: #### B SOFA INSPECTOR, TSH, LIPID, CMP #### [facility] [address] [address] [address] Lilli Soriano Triglyceride [Mass/Vol] 43 mg/dL Normal <=150 [facility] Comment on above: Performed By: #### B SOFA INSPECTOR, TSH, LIPID, CMP #### [facility] [address] [address] [address] Lilli Soriano VLDL CALC 8.6 mg/dL Normal [facility] Comment on above: Performed By: #### B SOFA INSPECTOR, TSH, LIPID, CMP #### [facility] [address] [place] [address] Dr. Lilli Soriano PROF 14(COMP METB)on 022 Albumin [Mass/Vol] 3.7 g/dL Normal 3.4-5.[address] [facility] Comment on above: Performed By: #### B SOFA INSPECTOR, TSH, LIPID, CMP #### [facility] [address] [place] [address] Dr. Lilli Soriano Albumin/Globulin [Mass ratio] 1.0 {ratio} Normal [facility] Comment on above: Performed By: #### B SOFA INSPECTOR, TSH, LIPID, CMP #### [facility] [address] [place] [address] Dr. Lilli Soriano ALP [Catalytic activity/Vol] 58 U/L Normal 46-116 [facility] Comment on above: Performed By: #### B SOFA INSPECTOR, TSH, LIPID, CMP #### [facility] [address] [address] [address] Lilli Soriano ALT [Catalytic activity/Vol] 30 U/L Normal 14-59 [facility] Comment on above: Performed By: #### B SOFA INSPECTOR, TSH, LIPID, CMP #### [facility] [address] [place] [address] Dr. Lilli Soriano Anion gap [Moles/Vol] 9.9 mmol/L Normal [facility] Comment on above: Performed By: #### B SOFA INSPECTOR, TSH, LIPID, CMP #### [facility] [address] [address] [address] Lilli Soriano AST [Catalytic activity/Vol] 10 U/L Critically low 15-37 [facility] Comment on above: Performed By: #### B SOFA INSPECTOR, TSH, LIPID, CMP #### [facility] [address] [place] [address] Dr. Lilli Soriano Bilirubin [Mass/Vol] 0.4 mg/dL Normal 0.2-1.0 [facility] Comment on above: Performed By: #### B SOFA INSPECTOR, TSH, LIPID, CMP #### [facility] [address] [place] [address] Dr. Lilli Soriano Calcium [Mass/Vol] 8.8 mg/dL Normal 8.5-10.[address] [facility] Comment on above: Performed By: #### B SOFA INSPECTOR, TSH, LIPID, CMP #### [facility] [address] [place] [address] Dr. Lilli Soriano Chloride [Moles/Vol] 102 mmol/L Normal 98-107 [facility] Comment on above: Performed By: #### B SOFA INSPECTOR, TSH, LIPID, CMP #### [facility] [address] [place] [address] Dr. Lilli Soriano CO2 [Moles/Vol] 30.1 mmol/L Normal 21.0-32.0 [facility] [place] [facility] Comment on above: Performed By: #### B SOFA INSPECTOR, TSH, LIPID, CMP #### [facility] [address] [place] [address] Dr. Lilli Soriano Creatinine [Mass/Vol] 0.90 mg/dL Normal 0.55-1.02 [facility] Comment on above: Performed By: #### B SOFA INSPECTOR, TSH, LIPID, CMP #### [facility] [address] [place] [address] Dr. Lilli Soriano EGFR-AF BURUNDIAN >60 Normal >=60 [facility] [place] [facility] Comment on above: Performed By: #### B SOFA INSPECTOR, TSH, LIPID, CMP #### [facility] [address] [place] [address] Dr. Lilli Soriano EGFR-NON AF [place]UNDIAN >60 Normal >=60 [facility] Comment on above: Performed By: #### B SOFA INSPECTOR, TSH, LIPID, CMP #### [facility] [address] [place] [address] Dr. Lilli Soriano Globulin (S) [Mass/Vol] 3.7 g/dL Normal [facility] Comment on above: Performed By: #### B SOFA INSPECTOR, TSH, LIPID, CMP #### [facility] [address] [place] [address] Dr. Lilli Soriano Glucose [Mass/Vol] 96 mg/dL Normal 74-[address] [facility] Comment on above: Performed By: #### B SOFA INSPECTOR, TSH, LIPID, CMP #### [facility] [address] [place] [address] Dr. Lilli Soriano Potassium [Moles/Vol] 4.0 mmol/L Normal 3.5-5.1 [facility] Comment on above: Performed By: #### B SOFA INSPECTOR, TSH, LIPID, CMP #### [facility] [address] [place] [address] Dr. Lilli Soriano Protein [Mass/Vol] 7.4 g/dL Normal 6.4-8.2 [facility] Comment on above: Performed By: #### B SOFA INSPECTOR, TSH, LIPID, CMP #### [facility] [address] [place] [address] Dr. Lilli Soriano Sodium [Moles/Vol] 138 mmol/L Normal 136-145 [facility] Comment on above: Performed By: #### B SOFA INSPECTOR, TSH, LIPID, CMP #### [facility] [address] [place] [address] Dr. Lilli Soriano Urea nitrogen [Mass/Vol] 12.0 mg/dL Normal 7.0-18.0 [facility] Comment on above: Performed By: #### B SOFA INSPECTOR, TSH, LIPID, CMP #### [facility] [address] [place] [address] Dr. Lilli Soriano Urea nitrogen/Creatinine [Mass ratio] 13.3 mg/mg Normal [facility] Comment on above: Performed By: #### B SOFA INSPECTOR, TSH, LIPID, CMP #### [facility] [address] [place] [address] Dr. Lilli Soriano TSHon 11-25-2021 TSH 1.196 uIU/mL Normal 0.358-3.740 [facility] Comment on above: Performed By: #### B SOFA INSPECTOR, TSH, LIPID, CMP #### [facility] [address] [place] [address] Dr. Lilli Soriano UA RANDOM W/MICROSCOPICon BACTERIA TRACE Abnormal NONE SEEN [facility] Comment on above: Performed By: #### B SOFA INSPECTOR, TSH, LIPID, CMP #### [facility] [address] [place] [address] Dr. Lilli Soriano Bilirubin Ql (U) Negative Normal NEGATIVE [facility] [place] [facility] Comment on above: Performed By: #### B SOFA INSPECTOR, TSH, LIPID, CMP #### [facility] [address] [place] [address] Dr. Lilli Soriano CAST NONE SEEN Normal NONE SEEN [facility] Comment on above: Performed By: #### B SOFA INSPECTOR, TSH, LIPID, CMP #### [facility] [address] [place] [address] Dr. Lilli Soriano Clarity (U) CLEAR Normal CLEAR [facility] Comment on above: Performed By: #### B SOFA INSPECTOR, TSH, LIPID, CMP #### [facility] [address] [place] [address] Dr. Lilli Soriano Color (U) LT. YELLOW Normal YELLOW [facility] Comment on above: Performed By: #### B SOFA INSPECTOR, TSH, LIPID, CMP #### [facility] [address] [place] [address] Dr. Lilli Soriano Crystals LM Nom (Urine sed) NONE SEEN Normal NONE SEEN [facility] Comment on above: Performed By: #### B SOFA INSPECTOR, TSH, LIPID, CMP #### [facility] [address] [place] [address] Dr. Lilli Soriano Epithelial cells LM Ql (Urine sed) MODERATE Abnormal NONE SEEN /RARE [facility] Comment on above: Performed By: #### B SOFA INSPECTOR, TSH, LIPID, CMP #### [facility] [address] [address] [address] Lilli Soriano Glucose Ql (U) Negative Normal NEGATIVE [facility] Comment on above: Performed By: #### B SOFA INSPECTOR, TSH, LIPID, CMP #### [facility] [address] [address] [address] Lilli Soriano Hemoglobin Ql (U) Negative Normal NEGATIVE [facility] Comment on above: Performed By: #### B SOFA INSPECTOR, TSH, LIPID, CMP #### [facility] [address] [address] [address] Lilli Soriano Ketones Ql (U) Negative Normal NEGATIVE [facility] Comment on above: Performed By: #### B SOFA INSPECTOR, TSH, LIPID, CMP #### [facility] [address] [place] [address] Dr. Lilli Soriano LEUKOCYTES Negative Normal NEGATIVE [facility] Comment on above: Performed By: #### B SOFA INSPECTOR, TSH, LIPID, CMP #### [facility] [address] [address] [address] Lilli Soriano MUCOUS NONE SEEN Normal NONE SEEN [facility] Comment on above: Performed By: #### B SOFA INSPECTOR, TSH, LIPID, CMP #### [facility] [address] [place] [address] Dr. Lilli Soriano Nitrite Ql (U) Negative Normal NEGATIVE [facility] Comment on above: Performed By: #### B SOFA INSPECTOR, TSH, LIPID, CMP #### [facility] [address] [address] [address] Lilli Soriano pH (U) 7.0 [pH] Normal 5-9 [facility] Comment on above: Performed By: #### B SOFA INSPECTOR, TSH, LIPID, CMP #### [facility] [address] [address] [address] Lilli Soriano RBC 0-2 Normal 0-2 [facility] Comment on above: Performed By: #### B SOFA INSPECTOR, TSH, LIPID, CMP #### [facility] [address] [address] [address] Lilli Soriano SPEC GRAVITY 1.010 Normal 1.005-<=1.02 5 [facility] Comment on above: Performed By: #### B SOFA INSPECTOR, TSH, LIPID, CMP #### [facility] [address] [address] [address] Lilli Soriano UA PROTEIN Negative Normal NEGATIVE/ TRACE [facility] Comment on above: Performed By: #### B SOFA INSPECTOR, TSH, LIPID, CMP #### [facility] [address] [address] [address] Lilli Soriano Urobilinogen Qn (U) 0.2 {Macho'U}/dL Normal 0.2 - 1. 0 [facility] Comment on above: Performed By: #### B SOFA INSPECTOR, TSH, LIPID, CMP #### [facility] [address] [place] [address] Dr. Lilli Soriano WBC NONE SEEN Normal NONE SEEN [facility] Comment on above: Performed By: #### B SOFA INSPECTOR, TSH, LIPID, CMP #### [facility] [address] [address] [address] Lilli Soriano URon 09-19-2021 , QUAL Negative Normal NEGATIVE [facility] Comment on above: Performed By: #### B SOFA INSPECTOR, TSH, LIPID, CMP #### [facility] [address] [place] [address] Dr. Lilli Soriano XR LSPINE 2_3 VIEWSon [...] space at L5-S1. Electronically authenticated by: ADALID PEREZ Date: 2021-09-19 12:59 Normal [facility] Covid-19 PCR (CVDTB)on 07-19 SARS-CoV-2 (COVID-19) RNA CLIFF+probe Ql (Unsp spec) Not detected Normal NOT DETECTED [facility] Comment on above: Result Comment: This test is not yet approved or cleared by the [place] FDA. When there are no FDA-approved or cleared tests available, and other criteria are met, FDA can make tests available under an emergency access mechanism called an Emergency Use Authorization (EUA). The EUA for this test is supported by the [employer] of Health and Human Service's (HHS's) declaration [...] Performed By: #### C VDTBH #### [facility] [address] [place] [address] Dr. Lilli Soriano INFLUENZA A AND B AGon 07-30 [facility] SEE BELOW Normal [facility] Comment on above: Result Comment: Nega tive for Flu A protein angiten. Infection due to Flu A cannot be ruled out. Flu A angiten in the sample may be below the detection limit of the test. Performed By: #### I NFLUAB #### [facility] [address] [place] [address] Dr. Lilli [facility] Normal [facility] Comment on above: Result Comment: Nega tive for Flu B protein antigen. Infection due to Flu B cannot be ruled out. Flu B antigen in the sample may be below the detection limit of the test. Performed By: #### I NFLUAB #### [facility] [address] [address] [address] Lilli Soriano INFLUENZA A AG Negative Normal NEGATIVE SEE COMMENT [facility] Comment on above: Performed By: #### I NFLUAB #### [facility] [address] [place], [place] [address] Dr. Lilli Soriano INFLUENZA B AG Negative Normal NEGATIVE SEE COMMENT [facility] Comment on above: Performed By: #### I NFLUAB #### [facility] [address] [place], [place] [address] Dr. Lilli Soriano INTERNAL CONTROLS Within Normal Limits Normal Wi thin Normal Limits [facility] Comment on above: Performed By: #### I NFLUAB #### [facility] [address] [place], [place] [address] Dr. Lilli Soriano HCG, Quanton 04-29-2021 HCG, Quant <1 Normal <5 [facility] Comment on above: Result Comment: Non-preg premeno <=5 Postmeno <=8 Male <=3 If HCG results do not concur with clinical observations, additional testing to confirm results is recommended. Elevated results not associated with may be found in patients with other diseases such as tumors of the germ cells (testis, ovaries, etc.), bladder, pancreas, stomach, lungs, and liver. Performed By: #### B HCG #### [facility] [address] [place] [address] [employer]: Geo Mar MD hCG, Quantitative, on 04-29-2021 hCG Quant <1 <5 IU/L [facility] Comment on above: Non-preg premeno <=5 Postmeno <=8 Male <=3 If HCG results do not concur with clinical observations, additional testing to confirm results is recommended. Elevated results not associated with may be found in patients with other diseases such as tumors of the germ cells (testis, ovaries, etc.), bladder, pancreas, stomach, lungs, and liver. [facility] CBC Auto Differentialon 03-21 Basophils (Bld) [#/Vol] 0.04 10*3/uL [place] Basophils/100 WBC (Bld) 1 % 0 - 2 % [place] Differential Type NOT REPORTED [place] Eosinophils (Bld) [#/Vol] 0.15 10*3/uL [place] Eosinophils/100 WBC (Bld) 2 % 1 - 4 % [place] Erythrocyte distribution width (RBC) [Ratio] 12.9 % 11.8 - 14.4 % [place] Hematocrit (Bld) [Volume fraction] 44.6 % 36.3 - 47.1 % [place] Hemoglobin (Bld) [Mass/Vol] 14.6 g/dL 11.9 - 15.1 g/dL [place] Immature granulocytes (Bld) [#/Vol] 0.05 10*3/uL [place] Immature granulocytes (Bld) [#/Vol] 1 % High 0 [place] Interpretation and review of laboratory results Abnormal [place] Lymphocytes (Bld) [#/Vol] 1.70 10*3/uL [place] Lymphocytes/100 WBC (Bld) 21 % Low 24 - 43 % [place] MCH (RBC) [Entitic mass] 28.1 pg 25.2 - 33.5 pg [place] MCHC (RBC) [Mass/Vol] 32.7 g/dL 28.4 - 34.8 g/dL [place] MCV (RBC) [Entitic vol] 85.8 fL 82.6 - 102.9 fL [place] Monocytes (Bld) [#/Vol] 0.54 10*3/uL [place] Monocytes/100 WBC (Bld) 7 % 3 - 12 % [place] Platelet mean volume (Bld) [Entitic vol] 10.7 fL 8.1 - 13.5 fL [place] Platelets (Bld) [#/Vol] NOT REPORTED [place] Platelets (Bld) [#/Vol] 337 10*3/uL [place] RBC (Bld) [#/Vol] 5.20 10*6/uL High 3.95 - 5.1 1 m/uL [place] RBC morphology finding Nom (Bld) NOT REPORTED [place] Segmented neutrophils/100 WBC (Bld) 68 % High 36 - 65 % [place] Segs Absolute 5.83 [place] WBC (Bld) [#/Vol] 8.3 10*3/uL [place] WBC (Bld) [#/Vol] 0.0 10*3/uL 0.0 per 10 0 WBC [place] WBC Morphology NOT REPORTED [place] Comprehensive Metabolic Pane jani 04-08-2020 Albumin [Mass/Vol] 4 g/dL 3.5 - 5.2 g/dL [place] Albumin/Globulin [Mass ratio] 1.7 {ratio} [place] ALP [Catalytic activity/Vol] 66 U/L 35 - 104 U/L [place] ALT [Catalytic activity/Vol] 16 U/L 5 - 33 U/L [place] Anion gap [Moles/Vol] 11 mmol/L 9 - 17 mmol/L [place] AST [Catalytic activity/Vol] 13 U/L <32 [place] Bilirubin Ql (U) 0.28 mg/dL Low 0.3 - 1.2 mg/dL [place] Bun/Cre Ratio NOT REPORTED [place] Calcium [Mass/Vol] 9.1 mg/dL 8.6 - 10. 4 mg/dL [place] Chloride [Moles/Vol] 103 mmol/L 98 - 10 7 mmol/L [place] CO2 [Moles/Vol] 21 mmol/L 20 - 31 mmol/L [place] Creatinine [Mass/Vol] 0.78 mg/dL 0.5 - 0.9 mg/dL [place] GFR >60 >60 mL/min [place] GFR Non- >60 >60 mL/min [place] GFR/1.73 sq M predicted among non-blacks MDRD (S/P/Bld) [Vol rate/Area] [place] Comment on above: Average GFR for 20-2 9 years old: 116 mL/min/1.73sq m Chronic Kidney Disease: <60 mL/min/1.73sq m Kidney failure: <15 mL/min/1.73sq m eGFR calculated using average adult body mass. Additional eGFR calculator available at: http://www.[employer]/multiple_crcl_2012.htm GFR/1.73 sq M predicted among non-blacks MDRD (S/P/Bld) [Vol rate/Area] NOT REPORTED [place] Glucose [Mass/Vol] 97 mg/dL 70 - 99 mg/dL [place] Interpretation and review of laboratory results Abnormal [place] Potassium [Moles/Vol] 4.4 mmol/L 3.7 - 5.3 mmol/L [place] Protein [Mass/Vol] 6.4 g/dL 6.4 - 8.3 g/dL [place] Sodium [Moles/Vol] 135 mmol/L 135 - 144 mmol/L [place] Urea nitrogen [Mass/Vol] 12 mg/dL 6 - 20 mg/dL [place] Hemoglobin A1Con 04-08-2020 Glucose [Mass/Vol] 111 mg/dL [place] Comment on above: The ADA and AACC rec ommend providing the estimated average glucose result to permit better patient understanding of their HBA1c result. HbA1c (Bld) [Mass fraction] 5.5 % 4 - 6 % [place] Insulin, totalon 04-08-2020 INR Coag (Bld) [Relative time] [place] Comment on above: Fastin.6-24.9 30 min: 20-112 60 min: 29-88 90 min: 26-84 120 min: 22-79 Insulin 27.4 mU/L [place] Insulin Comment NOT REPORTED [place] T3on 04-08-2020 T3, Total 97 ng/dL 60 - 181 ng/dL [place] T3, Uptakeon 04-08-2020 Interpretation and review of laboratory results Abnormal [place] T4 [Mass/Vol] 37.23 % High 22.5 - 37 % [place] T4on 04-08-2020 T4, Total 6.4 ug/dL 4.5 - 10.9 ug/dL [place] TSH without Reflexon 021 TSH Qn 1.39 m[IU]/L [place] Cult, Bloodon 12-04-2018 Cult, Blood Specimen Description .BLOOD Special Requests RAC 10ML Culture NO GROWTH 5 DAYS Report Status FINAL 12/04/2018 [facility] Comment on above: Performed By: #### T OXOM, HSVG12, CMVM, FA2, MATIAS, TOXOG, HSVM12, CMVG, FA5 #### [facility] [address] [place] [address] [employer]: Geo Mar MD #### CBC, FIB #### [address] [place] [address] [employer]: Mario Anne MD #### APROTS, APARVP, APROTC, ARUBGM #### [facility] [address] [place] [address] [employer]: Fernando Valencia MD #### LUPPRO #### [address] [phone] [employer]: Geo Mar MD [address] [place] [address] [employer]: Mario Anne MD [facility],Blood 12-03-2018 Cult,Blood Specimen Description .BLOOD Special Requests LAC 20 ML Culture NO GROWTH 5 DAYS Report Status FINAL 12/03/2018 [facility] Comment on above: Performed By: #### T OXOM, HSVG12, CMVM, FA2, MATIAS, TOXOG, HSVM12, CMVG, FA5 #### [id number] [place], [place] [id number] [employer]: Geo Mar MD #### CBC, FIB #### [address] [place] [address] [employer]: Mario Anne MD #### APROTS, APARVP, APROTC, ARUBGM #### [facility] [address] [place], [place] [id number] [employer]: Fernando Valencia MD #### LUPPRO #### [address] [address] [employer]: Geo Mar MD [address] [place] [phone] [employer]: Mario Anne MD CBCon 11-30-2018 Erythrocyte distribution width (RBC) [Ratio] 13.4 % Normal 11.8-14.4 [facility] Comment on above: Performed By: #### T OXOM, HSVG12, CMVM, FA2, MATIAS, TOXOG, HSVM12, CMVG, FA5 #### [address] [address] [employer]: Geo Mar MD #### CBC, FIB #### [address] [place], [place] [phone] [employer]: Mario Anne MD #### APROTS, APARVP, APROTC, ARUBGM #### [facility] [address] [place], [place] [id number] [employer]: Fernando Valencia MD #### LUPPRO #### [address] [address] [employer]: Geo Mar MD [address] [place], [place] [phone] [employer]: Mario Anne MD Hematocrit (Bld) [Volume fraction] 26.6 % Low 36.3-47.1 [facility] Comment on above: Performed By: #### T OXOM, HSVG12, CMVM, FA2, MATIAS, TOXOG, HSVM12, CMVG, FA5 #### [address] [address] [employer]: Geo Mar MD #### CBC, FIB #### [address] [place], [place] [phone] [employer]: Mario Anne MD #### APROTS, APARVP, APROTC, ARUBGM #### [facility] [address] [place], [place] [id number] [employer]: Fernando Valencia MD #### LUPPRO #### [address] [address] [employer]: Geo Mar MD [address] [place] [phone] [employer]: Mario Anne MD Hemoglobin (Bld) [Mass/Vol] 8.1 g/dL Low 11.9-15.1 [facility] Comment on above: Performed By: #### T OXOM, HSVG12, CMVM, FA2, MATIAS, TOXOG, HSVM12, CMVG, FA5 #### [address] [address] [employer]: Geo Mar MD #### CBC, FIB #### [address] [place], [place] [phone] [employer]: Mario Anne MD #### APROTS, APARVP, APROTC, ARUBGM #### [facility] [address] [place], [place] [id number] [employer]: Fernando Valencia MD #### LUPPRO #### [address] [phone] [employer]: Geo Mar MD [address] [place] [address] [employer]: Mario Anne MD MCH (RBC) [Entitic mass] 27.2 pg Normal 25.2-33.5 [facility] Comment on above: Performed By: #### T OXOM, HSVG12, CMVM, FA2, MATIAS, TOXOG, HSVM12, CMVG, FA5 #### [address] [address] [employer]: Geo Mar MD #### CBC, FIB #### [address] [place], [place] [phone] [employer]: Mario Anne MD #### APROTS, APARVP, APROTC, ARUBGM #### [facility] [address] [place] [address] [employer]: Fernando Valencia MD #### LUPPRO #### [address] [address] [employer]: Geo Mar MD [address] [place] [phone] [employer]: Mario Anne MD MCHC (RBC) [Mass/Vol] 30.5 g/dL Normal 28.4-34.8 [facility] Comment on above: Performed By: #### T OXOM, HSVG12, CMVM, FA2, MATIAS, TOXOG, HSVM12, CMVG, FA5 #### [address] [address] [employer]: Geo Mar MD #### CBC, FIB #### [address] [place] [address] [employer]: Mario Anne MD #### APROTS, APARVP, APROTC, ARUBGM #### [facility] [address] [place] [address] [employer]: Fernando Valencia MD #### LUPPRO #### [address] [address] [employer]: Geo Mar MD [address] [place] [address] [employer]: Mario Anne MD MCV (RBC) [Entitic vol] 89.3 fL Normal 82.6-102.9 [facility] Comment on above: Performed By: #### T OXOM, HSVG12, CMVM, FA2, MATIAS, TOXOG, HSVM12, CMVG, FA5 #### [address] [address] [employer]: Geo Mar MD #### CBC, FIB #### [facility] [address] [place] [address] [employer]: Mario Anne MD #### APROTS, APARVP, APROTC, ARUBGM #### [facility] [address] [place], [place] [phone] [employer]: Fernando Valencia MD #### LUPPRO #### [address] [address] [employer]: Geo Mar MD [facility] [address] [place] [phone] [employer]: Mario Anne MD NRBC Automated 0.0 per 100 WBC Normal 0.0 [facility] Comment on above: Performed By: #### T OXOM, HSVG12, CMVM, FA2, MATIAS, TOXOG, HSVM12, CMVG, FA5 #### [address] [address] [employer]: Geo Mar MD #### CBC, FIB #### [facility] [address] [place] [address] [employer]: Mario Anne MD #### APROTS, APARVP, APROTC, ARUBGM #### [facility] [address] [place] [address] [employer]: Fernando Valencia MD #### LUPPRO #### [address] [address] [employer]: Geo Mar MD [address] [place] [phone] [employer]: Mario Anne MD Platelet mean volume (Bld) [Entitic vol] 10.0 fL Normal 8.1-13.5 [facility] Comment on above: Performed By: #### T OXOM, HSVG12, CMVM, FA2, MATIAS, TOXOG, HSVM12, CMVG, FA5 #### [address] [address] [employer]: Geo Mar MD #### CBC, FIB #### [address] [place] [phone] [employer]: Mario Anne MD #### APROTS, APARVP, APROTC, ARUBGM #### [facility] [address] [place] [address] [employer]: Fernando Valencia MD #### LUPPRO #### [address] [address] [employer]: Geo Mar MD [address] [place] [address] [employer]: Mario Anne MD Platelets (Bld) [#/Vol] 255 10*3/uL Normal 138-453 [facility] Comment on above: Performed By: #### T OXOM, HSVG12, CMVM, FA2, MATIAS, TOXOG, HSVM12, CMVG, FA5 #### [address] [address] [employer]: Geo Mar MD #### CBC, FIB #### [address] [place] [address] [employer]: Mario Anne MD #### APROTS, APARVP, APROTC, ARUBGM #### [facility] [address] [place] [address] [employer]: Fernando Valencia MD #### LUPPRO #### [address] [address] [employer]: Geo Mar MD [address] [place] [phone] [employer]: Mario Anne MD RBC (Bld) [#/Vol] 2.98 10*6/uL Low 3.95-5.11 [facility] Comment on above: Performed By: #### T OXOM, HSVG12, CMVM, FA2, MATIAS, TOXOG, HSVM12, CMVG, FA5 #### [address] [address] [employer]: Geo Mar MD #### CBC, FIB #### [address] [place] [phone] [employer]: Mario Anne MD #### APROTS, APARVP, APROTC, ARUBGM #### [facility] [address] [place] [address] [employer]: Fernando Valencia MD #### LUPPRO #### [address] [address] [employer]: Geo Mar MD [address] [place], [place] [phone] [employer]: Mario Anne MD WBC (Bld) [#/Vol] 6.3 10*3/uL Normal 3.5-11.3 [facility] Comment on above: Performed By: #### T OXOM, HSVG12, CMVM, FA2, MATIAS, TOXOG, HSVM12, CMVG, FA5 #### [address] [address] [employer]: Geo Mar MD #### CBC, FIB #### [facility] [address] [place] [address] [employer]: Mario Anne MD #### APROTS, APARVP, APROTC, ARUBGM #### [facility] [address] [place] [address] [employer]: Fernando Valencia MD #### LUPPRO #### [facility] [address] [place], [place] [phone] [employer]: Geo Mar MD [facility] [address] [place] [address] [employer]: Mario Anne MD Erythrocyte distribution width (RBC) [Ratio] 13.4 % 11.8 - 14.4 % [place] Hematocrit (Bld) [Volume fraction] 26.6 % Low 36.3 - 47.1 % [place] Hemoglobin (Bld) [Mass/Vol] 8.1 g/dL Low 11.9 - 15.1 g/dL [place] Interpretation and review of laboratory results Abnormal [place] MCH (RBC) [Entitic mass] 27.2 pg 25.2 - 33.5 pg [place] MCHC (RBC) [Mass/Vol] 30.5 g/dL 28.4 - 34.8 g/dL [place] MCV (RBC) [Entitic vol] 89.3 fL 82.6 - 102.9 fL [place] Platelet mean volume (Bld) [Entitic vol] 10.0 fL 8.1 - 13.5 fL [place] Platelets (Bld) [#/Vol] 255 10*3/uL [place] RBC (Bld) [#/Vol] 2.98 10*6/uL Low 3.95 - 5.1 1 m/uL [place] WBC (Bld) [#/Vol] 6.3 10*3/uL [place] WBC (Bld) [#/Vol] 0.0 10*3/uL 0.0 per 10 0 WBC [facility] [place] Comp Metabolic Pr/rfx MGon 0 11-30-2018 (cont.) Normal [facility] Comment on above: Result Comment: Aver age GFR for 20-29 years old: 116 mL/min/1.73sq m Chronic Kidney Disease: <60 mL/min/1.73sq m Kidney failure: <15 mL/min/1.73sq m eGFR calculated using average adult body mass. Additional eGFR calculator available at: http://www.[employer]/multiple_crcl_2012.htm Performed By: #### T OXOM, HSVG12, CMVM, FA2, MATIAS, TOXOG, HSVM12, CMVG, FA5 #### [address] [phone] [employer]: Geo Mar MD #### CBC, FIB #### [address] [place] [phone] [employer]: Mario Anne MD #### APROTS, APARVP, APROTC, ARUBGM #### [facility] [address] [place] [address] [employer]: Fernando Valencia MD #### LUPPRO #### [address] [phone] [employer]: Geo Mar MD [address] [place] [phone] [employer]: Mario Anne MD Albumin [Mass/Vol] 2.9 g/dL Low 3.5-5.2 [facility] Comment on above: Performed By: #### T OXOM, HSVG12, CMVM, FA2, MATIAS, TOXOG, HSVM12, CMVG, FA5 #### [address] [phone] [employer]: Geo Mar MD #### CBC, FIB #### [address] [place] [address] [employer]: Mario Anne MD #### APROTS, APARVP, APROTC, ARUBGM #### [facility] [address] [place], [place] [phone] [employer]: Fernando Valencia MD #### LUPPRO #### [address] [address] [employer]: Geo Mar MD [address] [place], [place] [phone] [employer]: Mario Anne MD Albumin/Globulin [Mass ratio] 1.1 {ratio} Normal 1.0-2.5 [facility] Comment on above: Performed By: #### T OXOM, HSVG12, CMVM, FA2, MATIAS, TOXOG, HSVM12, CMVG, FA5 #### [address] [address] [employer]: Geo Mar MD #### CBC, FIB #### [address] [place], [place] [phone] [employer]: Mario Anne MD #### APROTS, APARVP, APROTC, ARUBGM #### [facility] [address] [place], [place] [id number] [employer]: Fernando Valencia MD #### LUPPRO #### [address] [address] [employer]: Geo Mar MD [address] [place], [place] [phone] [employer]: Mario Anne MD Alkaline Phos 41 U/L Normal 35-104 [facility] Comment on above: Performed By: #### T OXOM, HSVG12, CMVM, FA2, MATIAS, TOXOG, HSVM12, CMVG, FA5 #### [address] [address] [employer]: Geo Mar MD #### CBC, FIB #### [address] [place], [place] [phone] [employer]: Mario Anne MD #### APROTS, APARVP, APROTC, ARUBGM #### [facility] [address] [place] [address] [employer]: Fernando Valencia MD #### LUPPRO #### [address] [address] [employer]: Geo Mar MD [address] [place] [phone] [employer]: Mario Anne MD ALT [Catalytic activity/Vol] 17 U/L Normal 5-33 [facility] Comment on above: Performed By: #### T OXOM, HSVG12, CMVM, FA2, MATIAS, TOXOG, HSVM12, CMVG, FA5 #### [address] [address] [employer]: Geo Mar MD #### CBC, FIB #### [address] [address] [place], [place] [id number] [employer]: Mario Anne MD #### APROTS, APARVP, APROTC, ARUBGM #### [facility] [address] [place] [address] [phone] [employer]: Fernando Valencia MD #### LUPPRO #### [address] [address] [employer]: Geo Mar MD [address] [place], [place] [phone] [employer]: Mario Anne MD Anion gap [Moles/Vol] 14 mmol/L Normal 9-17 [facility] Comment on above: Performed By: #### T OXOM, HSVG12, CMVM, FA2, MATIAS, TOXOG, HSVM12, CMVG, FA5 #### [address] [address] [employer]: Geo Mar MD #### CBC, FIB #### [address] [place], [place] [phone] [employer]: Mario Anne MD #### APROTS, APARVP, APROTC, ARUBGM #### [facility] [address] [place] [address] [id number] [employer]: Fernando Valencia MD #### LUPPRO #### [address] [address] [employer]: Geo Mar MD [address] [place] [phone] [employer]: Mario Anne MD AST [Catalytic activity/Vol] 14 U/L Normal <32 [facility] Comment on above: Performed By: #### T OXOM, HSVG12, CMVM, FA2, MATIAS, TOXOG, HSVM12, CMVG, FA5 #### [address] [address] [employer]: Geo Mar MD #### CBC, FIB #### [address] [place] [address] [employer]: Mario Anne MD #### APROTS, APARVP, APROTC, ARUBGM #### [facility] [address] [place] [address] [phone] [employer]: Fernando Valencia MD #### LUPPRO #### [address] [address] [employer]: Geo Mar MD [address] [place], [place] [phone] [employer]: Mario Anne MD Bilirubin Ql (U) 0.16 mg/dL Low 0.3-1.2 [facility] Comment on above: Performed By: #### T OXOM, HSVG12, CMVM, FA2, MATIAS, TOXOG, HSVM12, CMVG, FA5 #### [address] [address] [employer]: Geo Mar MD #### CBC, FIB #### [address] [place], [place] 1965383 [employer]: Mario Anne MD #### APROTS, APARVP, APROTC, ARUBGM #### [facility] [address] [place], [place] [phone] [employer]: Fernando Valencia MD #### LUPPRO #### [address] [address] [employer]: Geo Mar MD [address] [place] [address]60683 [employer]: Mario Anne MD BUN/CRE Ratio 8 Low 9-20 [facility] Comment on above: Performed By: #### T OXOM, HSVG12, CMVM, FA2, MATIAS, TOXOG, HSVM12, CMVG, FA5 #### [address] [address] [employer]: Geo Mar MD #### CBC, FIB #### [address] [place], [place] [phone] [employer]: Mario Anne MD #### APROTS, APARVP, APROTC, ARUBGM #### [facility] [address] [place] [address] [employer]: Fernando Valencia MD #### LUPPRO #### [address] [address] [employer]: Geo Mar MD [address] [place], [place] [phone] [employer]: Mario Anne MD Calcium [Mass/Vol] 8.4 mg/dL Low 8.6-10.4 [facility] Comment on above: Performed By: #### T OXOM, HSVG12, CMVM, FA2, MATIAS, TOXOG, HSVM12, CMVG, FA5 #### [address] [address] [employer]: Geo Mar MD #### CBC, FIB #### [address] [place], [place] 0607883 [employer]: Mario Anne MD #### APROTS, APARVP, APROTC, ARUBGM #### [facility] [address] [place] [address] [employer]: Fernando Valencia MD #### LUPPRO #### [address] [address] [employer]: Geo Mar MD [address] [place] [phone] [employer]: Mario Anne MD Chloride [Moles/Vol] 105 mmol/L Normal 98-107 [facility] Comment on above: Performed By: #### T OXOM, HSVG12, CMVM, FA2, MATIAS, TOXOG, HSVM12, CMVG, FA5 #### [address] [address] [employer]: Geo Mar MD #### CBC, FIB #### [address] [place] [address] [employer]: Mario Anne MD #### APROTS, APARVP, APROTC, ARUBGM #### [facility] [address] [place] [address] [employer]: Fernando Valencia MD #### LUPPRO #### [address] [address] [employer]: Geo Mar MD [address] [place], [place] [phone] [employer]: Mario Anne MD CO2 [Moles/Vol] 20 mmol/L Normal 20-31 [facility] Comment on above: Performed By: #### T OXOM, HSVG12, CMVM, FA2, MATIAS, TOXOG, HSVM12, CMVG, FA5 #### [address] [address] [employer]: Geo Mar MD #### CBC, FIB #### [address] [place] [phone] [employer]: Mario Anne MD #### APROTS, APARVP, APROTC, ARUBGM #### [facility] [address] [place] [address] [employer]: Fernando Valencia MD #### LUPPRO #### [address] [address] [employer]: Geo Mar MD [address] [place] [phone] [employer]: Mario Anne MD Creatinine [Mass/Vol] 0.88 mg/dL Normal 0.50-0.90 [facility] Comment on above: Performed By: #### T OXOM, HSVG12, CMVM, FA2, MATIAS, TOXOG, HSVM12, CMVG, FA5 #### [address] [address] [employer]: Geo Mar MD #### CBC, FIB #### [address] [place], [place] 5990383 [employer]: Mario Anne MD #### APROTS, APARVP, APROTC, ARUBGM #### [facility] [address] [place], [place] [phone] [employer]: Fernando Valencia MD #### LUPPRO #### [address] [address] [employer]: Geo Mar MD [address] [place], [place] [phone] [employer]: Mario Anne MD GFR, Amer >60 Normal >60 [facility] Comment on above: Performed By: #### T OXOM, HSVG12, CMVM, FA2, MATIAS, TOXOG, HSVM12, CMVG, FA5 #### [address] [address] [employer]: Geo Mar MD #### CBC, FIB #### [address] [place], [place] 5342483 [employer]: Mario Anne MD #### APROTS, APARVP, APROTC, ARUBGM #### [facility] [address] [place], [place] [phone] [employer]: Fernando Valencia MD #### LUPPRO #### [address] [address] [employer]: Geo Mar MD [address] [place], [place] [phone] [employer]: Mario Anne MD GFR,non Amer >60 Normal >60 [facility] Comment on above: Performed By: #### T OXOM, HSVG12, CMVM, FA2, MATIAS, TOXOG, HSVM12, CMVG, FA5 #### [address] [address] [employer]: Geo Mar MD #### CBC, FIB #### [address] [place], [place] 0855683 [employer]: Mario Anne MD #### APROTS, APARVP, APROTC, ARUBGM #### [facility] [address] [place] [address] [employer]: Fernando Valencia MD #### LUPPRO #### [address] [address] [employer]: Geo Mar MD [address] [place], [place] 4959283 [employer]: Mario Anne MD Glucose [Mass/Vol] 123 mg/dL High 70-99 [facility] Comment on above: Performed By: #### T OXOM, HSVG12, CMVM, FA2, MATIAS, TOXOG, HSVM12, CMVG, FA5 #### [address] [address] [employer]: Geo Mar MD #### CBC, FIB #### [address] [place], [place] 0053783 [employer]: Mario Anne MD #### APROTS, APARVP, APROTC, ARUBGM #### [facility] [address] [place], [place] [phone] [employer]: Fernando Valencia MD #### LUPPRO #### [address] [address] [employer]: Geo Mar MD [address] [place], [place] 2356083 [employer]: Mario Anne MD Potassium [Moles/Vol] 3.7 mmol/L Normal 3.7-5.3 [facility] Comment on above: Performed By: #### T OXOM, HSVG12, CMVM, FA2, MATIAS, TOXOG, HSVM12, CMVG, FA5 #### [address] [address] [employer]: Geo Mar MD #### CBC, FIB #### [address] [place], [place] 3207483 [employer]: Mario Anne MD #### APROTS, APARVP, APROTC, ARUBGM #### [facility] [address] [place] [address] [employer]: Fernando Valencia MD #### LUPPRO #### [address] [address] [employer]: Geo Mar MD [address] [place] 1560683 [employer]: Mario Anne MD Protein [Mass/Vol] 5.6 g/dL Low 6.4-8.3 [facility] Comment on above: Performed By: #### T OXOM, HSVG12, CMVM, FA2, MATIAS, TOXOG, HSVM12, CMVG, FA5 #### [address] [address] [employer]: Geo Mar MD #### CBC, FIB #### [address] [place] [phone] [employer]: Mario Anne MD #### APROTS, APARVP, APROTC, ARUBGM #### [facility] [address] [place] [address] [employer]: Fernando Valencia MD #### LUPPRO #### [address] [address] [employer]: Geo Mar MD [address] [place], [place] 0643983 [employer]: Mario Anne MD Sodium [Moles/Vol] 139 mmol/L Normal 135-144 [facility] Comment on above: Performed By: #### T OXOM, HSVG12, CMVM, FA2, MATIAS, TOXOG, HSVM12, CMVG, FA5 #### [address] [address] [employer]: Geo Mar MD #### CBC, FIB #### [address] [place], [place] [phone] [employer]: Mario Anne MD #### APROTS, APARVP, APROTC, ARUBGM #### [facility] [address] [place] [address] [employer]: Fernando Valencia MD #### LUPPRO #### [address] [phone] [employer]: Geo Mar MD [address] [place] 1560683 [employer]: Mario Anne MD Staging: Normal [facility] Comment on above: Result Comment: Stag [...] MATIAS, TOXOG, HSVM12, CMVG, FA5 #### [address] [address] [employer]: Geo Mar MD #### CBC, FIB #### [address] [place], [place] [phone] [employer]: Mario Anne MD #### APROTS, APARVP, APROTC, ARUBGM #### [facility] [address] [place] [address] [employer]: Fernando Valencia MD #### LUPPRO #### [place] [address]38[address] [place], [place] 0144908 [employer]: Geo Mar MD [facility] [address] [place] [address] [place] [address] [employer]: Mario Anne MD Urea nitrogen [Mass/Vol] 7 mg/dL Normal 6-20 [facility] Comment on above: Performed By: #### T OXOM, HSVG12, CMVM, FA2, MATIAS, TOXOG, HSVM12, CMVG, FA5 #### [facility] [address] [place], [place] [phone] [employer]: Geo Mar MD #### CBC, FIB #### [facility] [address] [place] [address] [place] [address] [employer]: Mario Anne MD #### APROTS, APARVP, APROTC, ARUBGM #### [facility] [address] [place] [address] [employer]: Fernando Valencia MD #### LUPPRO #### [address] [phone] [employer]: Geo Mar MD [address] [place] [address] [employer]: Mario Anne MD Comprehensive Metabolic Pane l w/ Reflex to MGon 11-30-2018 Albumin [Mass/Vol] 2.9 g/dL Low 3.5 - 5.2 g/dL [place] Albumin/Globulin [Mass ratio] 1.1 {ratio} [place] ALP [Catalytic activity/Vol] 41 U/L 35 - 104 U/L [place] ALT [Catalytic activity/Vol] 17 U/L 5 - 33 U/L [place] Anion gap [Moles/Vol] 14 mmol/L 9 - 17 mmol/L [place] AST [Catalytic activity/Vol] 14 U/L <32 [place] Bilirubin Ql (U) 0.16 mg/dL Low 0.3 - 1.2 mg/dL [place] Bun/Cre Ratio 8 Low [place], [place] Calcium [Mass/Vol] 8.4 mg/dL Low 8.6 - 10. 4 mg/dL [place] Chloride [Moles/Vol] 105 mmol/L 98 - 10 7 mmol/L [place] CO2 [Moles/Vol] 20 mmol/L 20 - 31 mmol/L [place] Creatinine [Mass/Vol] 0.88 mg/dL 0.5 - 0.9 mg/dL [place] GFR >60 >60 mL/min [place] GFR Non- >60 >60 mL/min [place] Glucose [Mass/Vol] 123 mg/dL High 70 - 99 mg/dL [place] Interpretation and review of laboratory results Abnormal [place] Potassium [Moles/Vol] 3.7 mmol/L 3.7 - 5.3 mmol/L [place] Protein [Mass/Vol] 5.6 g/dL Low 6.4 - 8.3 g/dL [place] Sodium [Moles/Vol] 139 mmol/L 135 - 144 mmol/L [place] Urea nitrogen [Mass/Vol] 7 mg/dL 6 - 20 mg/dL [place] Cult,Urineon 11-30-2018 Cult,Urine Specimen Description .VOIDED URINE Special Requests NOT REPORTED Culture STREPTOCOCCI, BETA HEMOLYTIC GROUP B >[id number] CFU/ML Report Status FINAL 11/30/2018 Normal [facility] Comment on above: Performed By: #### T OXOM, HSVG12, CMVM, FA2, MATIAS, TOXOG, HSVM12, CMVG, FA5 #### [facility] [address] [place] [address] [employer]: Geo Mar MD #### CBC, FIB #### [facility] [address] [place] [address] [employer]: Mario Anne MD #### APROTS, APARVP, APROTC, ARUBGM #### [facility] [address] [place] [address] [employer]: Fernando Valencia MD #### LUPPRO #### [place] [address]38[address] [place], [place] [phone] [employer]: Geo Mar MD [facility] [address] [place] [address] [place] [address] [employer]: Mario Anne MD Metabolic Panelon 11-30-2018 GFR/1.73 sq M predicted among non-blacks MDRD (S/P/Bld) [Vol rate/Area] [place], [place] Comment on above: Stage 1: Some [...] body mass. Additional eGFR calculator available at: http://www.[employer]/multiple_crcl_2012.htm Vancomycin Troughon 12-01-19 19 Vancomycin Trough 22.3 ug/mL Critically high 10.0-20.0 [facility] Comment on above: Result Comment: High er trough serum vancomycin concentrations of 15-20 ug/mL are recommended for complicated infections such as bacteremia, endocarditis, osteomyelitis, meningitis, and hospital acquired pneumonia. Performed By: #### T OXOM, HSVG12, CMVM, FA2, MATIAS, TOXOG, HSVM12, CMVG, FA5 #### [facility] [address] [place], [place] [phone] [employer]: Geo Mar MD #### CBC, FIB #### [facility] [address] [place], [place] [phone] [employer]: Mario Anne MD #### APROTS, APARVP, APROTC, ARUBGM #### [facility] [address] [place] [address] [employer]: Fernando Valencia MD #### LUPPRO #### [address] [address] [employer]: Geo Mar MD [address] [place], [place] 2227383 [employer]: Mario Anne MD Date last dose, NOT REPORTED Normal [facility] Comment on above: Performed By: #### T OXOM, HSVG12, CMVM, FA2, MATIAS, TOXOG, HSVM12, CMVG, FA5 #### [facility] [address] [place] [address] [employer]: Geo Mar MD #### CBC, FIB #### [address] [place], [place] [phone] [employer]: Mario Anne MD #### APROTS, APARVP, APROTC, ARUBGM #### [facility] [address] [place] [address] [employer]: Fernando Valencia MD #### LUPPRO #### [address] [address] [employer]: Geo Mar MD [address] [place], [place] 6013283 [employer]: Mario Anne MD Dose amount, NOT REPORTED Normal [facility] Comment on above: Performed By: #### T OXOM, HSVG12, CMVM, FA2, MATISA, TOXOG, HSVM12, CMVG, FA5 #### [address] [address] [employer]: Geo Mar MD #### CBC, FIB #### [address] [place], [place] [phone] [employer]: Mario Anne MD #### APROTS, APARVP, APROTC, ARUBGM #### [facility] [address] [place] [address] [employer]: Fernando Valencia MD #### LUPPRO #### [address] [address] [employer]: Geo Mar MD [address] [place] [address] [employer]: Mario Anne MD Time last dose, NOT REPORTED Normal [facility] Comment on above: Performed By: #### T OXOM, HSVG12, CMVM, FA2, MATIAS, TOXOG, HSVM12, CMVG, FA5 #### [address] [address] [employer]: Geo Mar MD #### CBC, FIB #### [address] [place], [place] 0685783 [employer]: Mario Anne MD #### APROTS, APARVP, APROTC, ARUBGM #### [facility] [address] [place], [place] [phone] [employer]: Fernando Valencia MD #### LUPPRO #### [address] [address] [employer]: Geo Mar MD [facility] [address] [place] [address] [place] [address] [employer]: Mario Anne MD Vancomycin, troughon 019 Interpretation and review of laboratory results Abnormal [place] Vancomycin Tr 22.3 ug/mL Critically high 10 - 20 ug/mL [place] Comment on above: Higher trough serum vancomycin concentrations of 15-20 ug/mL are recommended for complicated infections such as bacteremia, endocarditis, osteomyelitis, meningitis, and hospital acquired pneumonia. Vancomycin Trough Date last dose NOT REPORTED [place] Vancomycin Trough Dose amount NOT REPORTED [place] Vancomycin Trough Time last dose NOT REPORTED [place] CBCon 11-29-2018 Erythrocyte distribution width (RBC) [Ratio] 13.4 % Normal 11.8-14.4 [facility] Comment on above: Performed By: #### T YS #### [address] [place] [address] [employer]: Mario Anne MD Hematocrit (Bld) [Volume fraction] 27.2 % Low 36.3-47.1 [facility] Comment on above: Performed By: #### T YS #### [address] [place] [address] [employer]: Mario Anne MD Hemoglobin (Bld) [Mass/Vol] 8.3 g/dL Low 11.9-15.1 [facility] Comment on above: Performed By: #### T YS #### [address] [place] [address] [employer]: Mario Anne MD MCH (RBC) [Entitic mass] 27.9 pg Normal 25.2-33.5 [facility] Comment on above: Performed By: #### T YS #### [address] [place], [place] 9238583 [employer]: Mario Anne MD MCHC (RBC) [Mass/Vol] 30.5 g/dL Normal 28.4-34.8 [facility] Comment on above: Performed By: #### T YS #### [address] [place] [address] [employer]: Mario Anne MD MCV (RBC) [Entitic vol] 91.3 fL Normal 82.6-102.9 [facility] Comment on above: Performed By: #### T YS #### [facility] [address] [place], [place] 7340083 [employer]: Mario Anne MD NRBC Automated 0.0 per 100 WBC Normal 0.0 [facility] Comment on above: Performed By: #### T YS #### [facility] [address] [place] 1560683 [employer]: Mario Anne MD Platelet mean volume (Bld) [Entitic vol] 9.6 fL Normal 8.1-13.5 [facility] Comment on above: Performed By: #### T YS #### [facility] [address] [place] 1560683 [employer]: Mario Anne MD Platelets (Bld) [#/Vol] 243 10*3/uL Normal 138-453 [facility] Comment on above: Performed By: #### T YS #### [address] [place] 1560683 [employer]: Mario Anne MD RBC (Bld) [#/Vol] 2.98 10*6/uL Low 3.95-5.11 [facility] Comment on above: Performed By: #### T YS #### [address] [place] [address]60683 [employer]: Mario Anne MD WBC (Bld) [#/Vol] 16.6 10*3/uL High 3.5-11.3 [facility] Comment on above: Performed By: #### T YS #### [address] [place] 1560683 [employer]: Mario Anne MD Erythrocyte distribution width (RBC) [Ratio] 13.4 % 11.8 - 14.4 % [place] Hematocrit (Bld) [Volume fraction] 27.2 % Low 36.3 - 47.1 % [place] Hemoglobin (Bld) [Mass/Vol] 8.3 g/dL Low 11.9 - 15.1 g/dL [place] Interpretation and review of laboratory results Abnormal [place] MCH (RBC) [Entitic mass] 27.9 pg 25.2 - 33.5 pg [place] MCHC (RBC) [Mass/Vol] 30.5 g/dL 28.4 - 34.8 g/dL [place] MCV (RBC) [Entitic vol] 91.3 fL 82.6 - 102.9 fL [place] Platelet mean volume (Bld) [Entitic vol] 9.6 fL 8.1 - 13.5 fL [place] Platelets (Bld) [#/Vol] 243 10*3/uL [place] RBC (Bld) [#/Vol] 2.98 10*6/uL Low 3.95 - 5.1 1 m/uL [place] WBC (Bld) [#/Vol] 16.6 10*3/uL [place] WBC (Bld) [#/Vol] 0.0 10*3/uL 0.0 per 10 0 WBC [place] CONSULTATIONon 11-29-[address] [id number] CONSULTATION PATIENT NAME: DEION CUMMINGS : 1995 MED REC NO: [id number] ROOM: 0328 ACCOUNT NO: [id number] ADMIT DATE: 11/28/2018 PROVIDER: Jennifer Hedrick CONSULT [...] in this matter. JENNIFER HEDRICK [id number] Doc#: [id number] CC: Normal [facility] Comp Metabolic Pr/rfx MGon 0 11-29-2018 (cont.) [facility] Comment on above: Result Comment: Aver age GFR for 20-29 years old: 116 mL/min/1.73sq m Chronic Kidney Disease: <60 mL/min/1.73sq m Kidney failure: <15 mL/min/1.73sq m eGFR calculated using average adult body mass. Additional eGFR calculator available at: http://www.[employer]/multiple_crcl_2012.htm Performed By: #### T YS #### [facility] [address] [place], [place] 2176[address] [employer]: Mario Anne MD Albumin [Mass/Vol] 3.1 g/dL Low 3.5-5.2 [facility] Comment on above: Performed By: #### T YS #### [facility] [address] [place], [place] [phone] [employer]: Mario Anne MD Albumin/Globulin [Mass ratio] 1.2 {ratio} Normal 1.0-2.5 [facility] Comment on above: Performed By: #### T YS #### [facility] [address] [place], [place] 5195883 [employer]: Mario Anne MD Alkaline Phos 38 U/L Normal 35-104 [facility] Comment on above: Performed By: #### T YS #### [facility] [address] [place], [place] 1738983 [employer]: Mario Anne MD ALT [Catalytic activity/Vol] 15 U/L Normal 5-33 [facility] Comment on above: Performed By: #### T YS #### [facility] [address] [place], [place] 3821283 [employer]: Mario Anne MD Anion gap [Moles/Vol] 13 mmol/L Normal 9-17 [facility] Comment on above: Performed By: #### T YS #### [facility] [address] [place], [place] 5222283 [employer]: Mario Anne MD AST [Catalytic activity/Vol] 11 U/L Normal <32 [facility] Comment on above: Performed By: #### T YS #### [facility] [address] [place], [place] 5081383 [employer]: Mario Anne MD Bilirubin Ql (U) 0.56 mg/dL Normal 0.3-1.2 [facility] Comment on above: Performed By: #### T YS #### [facility] [address] [place], [place] 4673983 [employer]: Mario Anne MD BUN/CRE Ratio 9 Normal 9-20 [facility] Comment on above: Performed By: #### T YS #### [facility] [address] [place], [place] 7956983 [employer]: Mario Anne MD Calcium [Mass/Vol] 8.5 mg/dL Low 8.6-10.4 [facility] Comment on above: Performed By: #### T YS #### [facility] [address] [place], [place] 1755983 [employer]: Mario Anne MD Chloride [Moles/Vol] 101 mmol/L Normal 98-107 [facility] Comment on above: Performed By: #### T YS #### [facility] [address] [place], [place] [phone] [employer]: Mario Anne MD CO2 [Moles/Vol] 20 mmol/L Normal 20-31 [facility] Comment on above: Performed By: #### T YS #### [facility] [address] [place] [address] [employer]: Mario Anne MD Creatinine [Mass/Vol] 0.80 mg/dL Normal 0.50-0.90 [facility] Comment on above: Performed By: #### T YS #### [facility] [address] [place], [place] [id number] [employer]: Mario Anne MD GFR, Amer >60 Normal >60 [facility] Comment on above: Performed By: #### T YS #### [facility] [address] [place], [place] [id number] [employer]: Mario Anne MD GFR,non Amer >60 Normal >60 [facility] Comment on above: Performed By: #### T YS #### [facility] [address] [place], [place] [phone] [employer]: Mario Anne MD Glucose [Mass/Vol] 121 mg/dL High 70-99 [facility] Comment on above: Performed By: #### T YS #### [facility] [address] [place], [place] [phone] [employer]: Mario Anne MD Potassium [Moles/Vol] 3.4 mmol/L Low 3.7-5.3 [facility] Comment on above: Performed By: #### T YS #### [facility] [address] [place], [place] [phone] [employer]: Mario Anne MD Protein [Mass/Vol] 5.7 g/dL Low 6.4-8.3 [facility] Comment on above: Performed By: #### T YS #### [facility] [address] [place], [place] [address]83 [employer]: Mario Anne MD Sodium [Moles/Vol] 134 mmol/L Low 135-144 [facility] Comment on above: Performed By: #### T YS #### [facility] [address] [place], [place] 3256[address] [employer]: Mario Anne MD Staging: Normal [facility] Comment on above: Result Comment: Stag e 1: Some kidney damage normal GFR Stage 2: Mild kidney damage GFR 60-89 Stage 3: Moderate kidney damage GFR 30-59 Stage 4: Severe kidney damage GFR 15-29 Stage 5: Severe kidney damage GFR <15 ESRD - chronic treatment by dialysis or transplant Performed By: #### T YS #### [facility] [address] [place], [place] [phone] [employer]: Mario Anne MD Urea nitrogen [Mass/Vol] 7 mg/dL Normal 6-20 [facility] Comment on above: Performed By: #### T YS #### [facility] [address] [place], [place] [phone] [employer]: Mario Anne MD Comprehensive Metabolic Pane l w/ Reflex to MGon 11-29-2018 Albumin [Mass/Vol] 3.1 g/dL Low 3.5 - 5.2 g/dL [place] Albumin/Globulin [Mass ratio] 1.2 {ratio} [place] ALP [Catalytic activity/Vol] 38 U/L 35 - 104 U/L [place] ALT [Catalytic activity/Vol] 15 U/L 5 - 33 U/L [place] Anion gap [Moles/Vol] 13 mmol/L 9 - 17 mmol/L [place] AST [Catalytic activity/Vol] 11 U/L <32 [place] Bilirubin Ql (U) 0.56 mg/dL 0.3 - 1.2 mg/dL [place] Bun/Cre Ratio 9 [place], [place] Calcium [Mass/Vol] 8.5 mg/dL Low 8.6 - 10. 4 mg/dL [place] Chloride [Moles/Vol] 101 mmol/L 98 - 10 7 mmol/L [place] CO2 [Moles/Vol] 20 mmol/L 20 - 31 mmol/L [place] Creatinine [Mass/Vol] 0.8 mg/dL 0.5 - 0.9 mg/dL [place] GFR >60 >60 mL/min [place] GFR Non- >60 >60 mL/min [place] Glucose [Mass/Vol] 121 mg/dL High 70 - 99 mg/dL [place] Interpretation and review of laboratory results Abnormal [place] Potassium [Moles/Vol] 3.4 mmol/L Low 3.7 - 5.3 mmol/L [place] Protein [Mass/Vol] 5.7 g/dL Low 6.4 - 8.3 g/dL [place] Sodium [Moles/Vol] 134 mmol/L Low 135 - 144 mmol/L [place] Urea nitrogen [Mass/Vol] 7 mg/dL 6 - 20 mg/dL [place] Factor II Activityon 019 Factor II Activity 120 % Normal 50-150 [facility] Comment on above: Performed By: #### C BC #### [facility] [address] [place], [place] [phone] [employer]: Mario Anne MD Factor V Activityon 11-30-19 19 Factor V Activity 120 % Normal 50-[address] [facility] Comment on above: Performed By: #### C BC #### [facility] [address] [place], [place] [address]83 [employer]: Mario Anne MD Lupus Anticoagulanton 2018 Dilute Alexandr Viper Negative Normal NLUP [facility] Comment on above: Performed By: #### C BC #### [facility] [address] [place] [address] [employer]: Mario Anne MD Magnesiumon 11-29-2018 Magnesium [Mass/Vol] 1.9 mg/dL Normal 1.6-2.6 [facility] Comment on above: Performed By: #### T YS #### [facility] [address] [place] [address] [employer]: Mario Anne MD Magnesium [Mass/Vol] 1.9 mg/dL 1.6 - 2 .6 mg/dL [place] Metabolic Panelon 11-29-2018 GFR/1.73 sq M predicted among non-blacks MDRD (S/P/Bld) [Vol rate/Area] [place] Comment on above: Average GFR for 20-2 9 years old: 116 mL/min/1.73sq m Chronic Kidney Disease: <60 mL/min/1.73sq m Kidney failure: <15 mL/min/1.73sq m eGFR calculated using average adult body mass. Additional eGFR calculator available at: http://www.Desall.MediVision/multiple_crcl_2012.htm Stage 1: Some kidney damage normal GFR [...] Nba Thomas MD 11/29/18 Final result Normal [facility] No retained products demonstrated. [facility] [place], pn Incoming Radiant Results From [facility]ES - 11/29/2018 12:12 AM EDT EXAMINATION: PELVIC ULTRASOUND 11/28/2018 TECHNIQUE: Transabdominal pelvic ultrasound COMPARISON: None HISTORY: ORDERING SYSTEM PROVIDED HISTORY: Rule out retained products of conception FINDINGS: No intrauterine gestational sac is identified. The endometrium measures up to 6.7 mm in thickness. No retained products of conception are demonstrated. IMPRESSION: No retained products demonstrated. [facility] SHIRA EXAMINATION: PELVIC ULTRASOUND 11/28/2018 TECHNIQUE: Transabdominal pelvic ultrasound COMPARISON: None HISTORY: ORDERING SYSTEM PROVIDED HISTORY: Rule out retained products of conception FINDINGS: No intrauterine gestational sac is identified. The endometrium measures up to 6.7 mm in thickness. No retained products of conception are demonstrated. [facility] SHIRA VL DUP LOWER EXTREMITY VENOU S BILATERALon 11-29-2018 [place], Mhpn Incoming Cardio Results From [facility]acs[facility]Ge - 11/29/2018 3:57 PM EDT [facility] Vascular Lower Extremities DVT Study Procedure Patient Name TOMY Date of Study 11/29/2018 DEION L Date of 1995 Gender Female Age 23 year(s) Race Room Number 0328 Corporate ID [id number] # Patient Acct [id number] # MR # [id number] Monkey Trainer CARLOS Carey Interpreting Physician Matt Mayer MD [...] !Phasic! ! ! + ------+------+------+- --------- + [facility], [facility] Vascular Lower Extremities DVT Study Procedure Patient Name TOMY Date of Study 11/29/2018 DEION Lopez Date of 1995 Gender Female Age 23 year(s) Race Room Number 0328 Corporate ID [id number] # Patient Acct [id number] # MR # [id number] Monkey Train[employer] CARLSO Carey Interpreting Physician Matt Mayer MD Referring [...] !Popliteal !Phasic! ! ! + ------+------+------+- ---------+ [facility] APTTon 11-28-2018 aPTT Coag (Bld) [Time] 21.5 s Low 23.2-34.4 [facility] Comment on above: Performed By: #### L IP, CMPX, PT, CDP, PTT ####[facility] [place] [address] lab Director: Mario Anne MD aPTT Coag (Bld) [Time] 21.5 s Low [facility] Blood gas, venouson 11-29-19 19 Marco Test NOT REPORTED [facility] [place] aPTT Coag (Bld) [Time] NOT REPORTED [facility] [place] Carboxyhemoglobin 0 - 5 % [facility] FIO2 NOT REPORTED [facility] [place], [facility] HCO3, Venous 20.5 mmol/L Low 24 - 30 mmol/L [place] Interpretation and review of laboratory results Abnormal [place] Methemoglobin NOT REPORTED 0 - 1.9 % [place], [place] Mode NOT REPORTED [place], [place] Negative Base Excess, [place] 2.9 mmol/L High 0 - 2 mmol/L [place] NOTIFICATION NOT REPORTED [place] NOTIFICATION TIME NOT REPORTED [place] O2 Device/Flow/% NOT REPORTED [place] Oxygen saturation in Blood 40.2 % Low 60 - 85 % [place] Oxyhemoglobin NOT REPORTED 95 - 98 % [place] pCO2, [place] 31.9 Low [place] pCO2, [place], Temp Adj NOT REPORTED [place] Peep/Cpap NOT REPORTED [place], [place] pH, [place] 7.425 High [place] pH, [place], Temp Adj NOT REPORTED [place] pO2, [place] 22.2 Low [place] pO2, [place], Temp Adj NOT REPORTED [place] Positive Base Excess, [place] NOT REPORTED 0 - 2 mmol/L [place] PSV NOT REPORTED [place], [place] Pt. Position NOT REPORTED [place] Sample Site NOT REPORTED [place] Set Rate NOT REPORTED [place], [place] Text for Respiratory NOT REPORTED [place], [place] Total Hb NOT REPORTED 12 - 16 g/dl [place] Total Rate NOT REPORTED [place], [place] VT NOT REPORTED [place], [place] CBC auto differentialon 11-19 Basophils (Bld) [#/Vol] 0.03 10*3/uL [place] Basophils/100 WBC (Bld) 0 % 0 - 2 % [place] Differential Type NOT REPORTED [place] Eosinophils (Bld) [#/Vol] 0.17 10*3/uL [place] Eosinophils/100 WBC (Bld) 1 % 1 - 4 % [place] Erythrocyte distribution width (RBC) [Ratio] 13.3 % 11.8 - 14.4 % [place] Hematocrit (Bld) [Volume fraction] 30.5 % Low 36.3 - 47.1 % [place] Hemoglobin (Bld) [Mass/Vol] 9.6 g/dL Low 11.9 - 15.1 g/dL [place] Immature granulocytes (Bld) [#/Vol] 1 % High 0 [place] Immature granulocytes (Bld) [#/Vol] 0.09 10*3/uL [place] Interpretation and review of laboratory results Abnormal [place] Lymphocytes (Bld) [#/Vol] 0.80 10*3/uL Low [place] Lymphocytes/100 WBC (Bld) 5 % Low 24 - 43 % [place] MCH (RBC) [Entitic mass] 28.1 pg 25.2 - 33.5 pg [place] MCHC (RBC) [Mass/Vol] 31.5 g/dL 28.4 - 34.8 g/dL [place] MCV (RBC) [Entitic vol] 89.2 fL 82.6 - 102.9 fL [place] Monocytes (Bld) [#/Vol] 0.65 10*3/uL [place] Monocytes/100 WBC (Bld) 4 % 3 - 12 % [place] Platelet mean volume (Bld) [Entitic vol] 9.9 fL 8.1 - 13.5 fL [place] Platelets (Bld) [#/Vol] 305 10*3/uL [place] Platelets (Bld) [#/Vol] NOT REPORTED [place] RBC (Bld) [#/Vol] 3.42 10*6/uL Low 3.95 - 5.1 1 m/uL [place] RBC morphology finding Nom (Bld) NOT REPORTED [place] Segmented neutrophils/100 WBC (Bld) 89 % High 36 - 65 % [place] Segs Absolute 15.13 High [place] WBC (Bld) [#/Vol] 16.9 10*3/uL [place] WBC (Bld) [#/Vol] 0.0 10*3/uL 0.0 per 10 0 WBC [place] WBC Morphology NOT REPORTED [place], [place] CBC with Diffon 11-28-2018 Abs. Basophil 0.03 k/uL Normal 0.00-0.20 [facility] Comment on above: Performed By: #### L IP, CMPX, PT, CDP, PTT ####[address] [place], [place] [address] Lab Director: Mario Anne MD Abs.Imm.Granulocyte 0.09 k/uL Normal 0.00-0.30 [facility] Comment on above: Performed By: #### L IP, CMPX, PT, CDP, PTT ####[address] [place] [address]([facility])[phone] Director: Mario Anne MD Abs.Neutrophil (Seg) 15.13 k/uL High 1.50-8.10 [facility] Comment on above: Performed By: #### L IP, CMPX, PT, CDP, PTT ####[address] [place] [address]683 lab Director: Mario Anne MD Basophils/100 WBC (Bld) 0 % Normal 0-2 [facility] Comment on above: Performed By: #### L IP, CMPX, PT, CDP, PTT ####[address] , [facility]83 Lab Director: Mario Anne MD Eosinophils (Bld) [#/Vol] 0.17 10*3/uL Normal 0.00-0.44 [facility] Comment on above: Performed By: #### L IP, CMPX, PT, CDP, PTT ####[address] , [facility]83 Lab Director: Mario Anne MD Eosinophils/100 WBC (Bld) 1 % Normal 1-4 [facility] Comment on above: Performed By: #### L IP, CMPX, PT, CDP, PTT ####[address] , [place] 68[address] Lab Director: Mario Anne MD Erythrocyte distribution width (RBC) [Ratio] 13.3 % Normal 11.8-14.4 [facility] Comment on above: Performed By: #### L IP, CMPX, PT, CDP, PTT ####[address] [place] [address] Lab Director: Mario Anne MD Hematocrit (Bld) [Volume fraction] 30.5 % Low 36.3-47.1 [facility] Comment on above: Performed By: #### L IP, CMPX, PT, CDP, PTT ####[address] , [facility]61([facility])[phone] Director: Mario Anne MD Hemoglobin (Bld) [Mass/Vol] 9.6 g/dL Low 11.9-15.1 [facility] Comment on above: Performed By: #### L IP, CMPX, PT, CDP, PTT ####[address] [place] [address]([facility])[phone] Director: Mario Anne MD Immature granulocytes (Bld) [#/Vol] 1 % High 0 [facility] Comment on above: Performed By: #### L IP, CMPX, PT, CDP, PTT ####[address] [place] [address] Lab Director: Mario Anne MD Lymphocytes (Bld) [#/Vol] 0.80 10*3/uL Low 1.10-3.70 [facility] Comment on above: Performed By: #### L IP, CMPX, PT, CDP, PTT ####[address] [facility]83[facility])[phone] Director: Mario Anne MD Lymphocytes/100 WBC (Bld) 5 % Low 24-43 [facility] Comment on above: Performed By: #### L IP, CMPX, PT, CDP, PTT ####[address] , [facility]31 Lab Director: Mario Anne MD MCH (RBC) [Entitic mass] 28.1 pg Normal 25.2-33.5 [facility] Comment on above: Performed By: #### L IP, CMPX, PT, CDP, PTT ####[address] , [place] [address])[phone] Director: Mario Anne MD MCHC (RBC) [Mass/Vol] 31.5 g/dL Normal 28.4-34.8 [facility] Comment on above: Performed By: #### L IP, CMPX, PT, CDP, PTT ####[address] , [place] [address])[phone] Director: Mario Anne MD MCV (RBC) [Entitic vol] 89.2 fL Normal 82.6-102.9 [facility] Comment on above: Performed By: #### L IP, CMPX, PT, CDP, PTT ####[address] [place] [address])[phone] Director: Mario Anne MD Monocytes (Bld) [#/Vol] 0.65 10*3/uL Normal 0.10-1.20 [facility] Comment on above: Performed By: #### L IP, CMPX, PT, CDP, PTT ####[address] , [facility]83[facility])[phone] Director: Mario Anne MD Monocytes/100 WBC (Bld) 4 % Normal 3-12 [facility] Comment on above: Performed By: #### L IP, CMPX, PT, CDP, PTT ####[address] 1969083 Lab Director: Mario Anne MD Neutrophil (Seg) 89 % High 36-65 [facility] Comment on above: Performed By: #### L IP, CMPX, PT, CDP, PTT ####[address] , [place] 98[address]183 Lab Director: Mario Anne MD NRBC Automated 0.0 per 100 WBC Normal 0.0 [facility] Comment on above: Performed By: #### L IP, CMPX, PT, CDP, PTT ####[address] , [place] 160[address] Lab Director: Mario Anne MD Platelet mean volume (Bld) [Entitic vol] 9.9 fL Normal 8.1-13.5 [facility] Comment on above: Performed By: #### L IP, CMPX, PT, CDP, PTT ####[address] , [place] 8307483 Lab Director: Mario Anne MD Platelets (Bld) [#/Vol] 305 10*3/uL Normal 138-453 [facility] Comment on above: Performed By: #### L IP, CMPX, PT, CDP, PTT ####[address] , [place] 0[address]83 Lab Director: Mario Anne MD RBC (Bld) [#/Vol] 3.42 10*6/uL Low 3.95-5.11 [facility] Comment on above: Performed By: #### L IP, CMPX, PT, CDP, PTT ####[address] , [place] 1932283 Lab Director: Mario Anne MD WBC (Bld) [#/Vol] 16.9 10*3/uL High 3.5-11.3 [facility] Comment on above: Performed By: #### L IP, CMPX, PT, CDP, PTT ####[address] [place] [address] Lab Director: Mario Anne MD Auto Diff Performed NOT REPORTED Normal [facility] Comment on above: Performed By: #### L IP, CMPX, PT, CDP, PTT ####[address] [place] [address] Lab Director: Mario Anne MD Platelets (Bld) [#/Vol] NOT REPORTED Normal [facility] Comment on above: Performed By: #### L IP, CMPX, PT, CDP, PTT ####[address] [place] [address] Lab Director: Mario Anne MD RBC morphology finding Nom (Bld) NOT REPORTED Normal [facility] Comment on above: Performed By: #### L IP, CMPX, PT, CDP, PTT ####[address] [place] [address] Lab Director: Mario Anne MD WBC Morphology NOT REPORTED Normal [facility] Comment on above: Performed By: #### L IP, CMPX, PT, CDP, PTT ####[address] [place] [address] Lab Director: Mario Anne MD CT ABDOMEN [...] Graeme Stewart MD 11/28/18 Final result Normal [facility] EXAMINATION: CT OF T ABDOMEN AND [...] No lymphadenopathy within the abdomen or pelvis. [place] No evidence for acut e intra-abdominal or intrapelvic pathology. No bowel obstruction or inflammation. No free intraperitoneal air or fluid. No evidence for urinary obstruction. Normal appendix. 2.5 cm exophytic lesion arising from the interpolar region of the right kidney, indeterminate. Further evaluation with renal ultrasound is recommended on a nonemergent/outpatient basis. [place], [place] Incoming Radiant Results From [facility] - 11/28/2018 8:59 PM EDT EXAMINATION: CT [...] ultrasound is recommended on a nonemergent/outpatient basis. [facility] Comp Metabolic Pr/rfx MGon 0 11-28-2018 AST [Catalytic activity/Vol] 23 U/L Normal <32 [facility] Comment on above: Performed By: #### L IP, CMPX, PT, CDP, PTT ####[facility] [place] [address] lab Director: Mario Anne MD (cont.) Normal [facility] Comment on above: Result Comment: Aver age GFR for 20-29 years old: 116 mL/min/1.73sq m Chronic Kidney Disease: <60 mL/min/1.73sq m Kidney failure: <15 mL/min/1.73sq m eGFR calculated using average adult body mass. Additional eGFR calculator available at: http://www.Desall.com/multiple_crcl_2012.htm Performed By: #### L IP, CMPX, PT, CDP, PTT ####[facility] [place] [address] lab Director: Mario Anne MD Albumin [Mass/Vol] 3.7 g/dL Normal 3.5-5.2 [facility] Comment on above: Performed By: #### L IP, CMPX, PT, CDP, PTT ####[address] , [place] [phone] lab Director: Mario Anne MD Albumin/Globulin [Mass ratio] 1.2 {ratio} Normal 1.0-2.5 [facility] Comment on above: Performed By: #### L IP, CMPX, PT, CDP, PTT ####[address] , [place] 7777683 lab Director: Mario Anne MD Alkaline Phos 47 U/L Normal 35-104 [facility] Comment on above: Performed By: #### L IP, CMPX, PT, CDP, PTT ####[address] , [place] 88[address] lab Director: Mario Anne MD ALT [Catalytic activity/Vol] 18 U/L Normal 5-33 [facility] Comment on above: Performed By: #### L IP, CMPX, PT, CDP, PTT ####[address] , [place] 217[address]83 lab Director: Mario Anne MD Anion gap [Moles/Vol] 16 mmol/L Normal 9-17 [facility] Comment on above: Performed By: #### L IP, CMPX, PT, CDP, PTT ####[address] , [place] 433[address]83 lab Director: Mario Anne MD Bilirubin Ql (U) 0.33 mg/dL Normal 0.3-1.2 [facility] Comment on above: Performed By: #### L IP, CMPX, PT, CDP, PTT ####[address] [place] [address] lab Director: Mario Anne MD BUN/CRE Ratio 10 Normal 9-20 [facility] Comment on above: Performed By: #### L IP, CMPX, PT, CDP, PTT ####[address] [place] [address] lab Director: Mario Anne MD Calcium [Mass/Vol] 9.1 mg/dL Normal 8.6-10.4 [facility] Comment on above: Performed By: #### L IP, CMPX, PT, CDP, PTT ####[address] , [place] 358[address]83 lab Director: Mario Anne MD Chloride [Moles/Vol] 102 mmol/L Normal 98-107 [facility] Comment on above: Performed By: #### L IP, CMPX, PT, CDP, PTT ####[address] [place] [address] lab Director: Mario Anne MD CO2 [Moles/Vol] 20 mmol/L Normal 20-31 [facility] Comment on above: Performed By: #### L IP, CMPX, PT, CDP, PTT ####[address] , [place] 7[address]83 lab Director: Mario Anne MD Creatinine [Mass/Vol] 0.81 mg/dL Normal 0.50-0.90 [facility] Comment on above: Performed By: #### L IP, CMPX, PT, CDP, PTT ####[address] , [place] 6604383 lab Director: Mario Anne MD GFR, Amer >60 Normal >60 [facility] Comment on above: Performed By: #### L IP, CMPX, PT, CDP, PTT ####[address] [place] [address] lab Director: Mario Anne MD GFR,non Amer >60 Normal >60 [facility] Comment on above: Performed By: #### L IP, CMPX, PT, CDP, PTT ####[address] 378[address]83 lab Director: Mario Anne MD Glucose [Mass/Vol] 93 mg/dL Normal 70-99 [facility] Comment on above: Performed By: #### L IP, CMPX, PT, CDP, PTT ####[address] , [place] 2788483 lab Director: Mario Anne MD Potassium [Moles/Vol] 3.8 mmol/L Normal 3.7-5.3 [facility] Comment on above: Performed By: #### L IP, CMPX, PT, CDP, PTT ####[address] , [place] 6935283 lab Director: Mario Anne MD Protein [Mass/Vol] 6.9 g/dL Normal 6.4-8.3 [facility] Comment on above: Performed By: #### L IP, CMPX, PT, CDP, PTT ####[address] , [place] 5859883 lab Director: Mario Anne MD Sodium [Moles/Vol] 138 mmol/L Normal 135-144 [facility] Comment on above: Performed By: #### L IP, CMPX, PT, CDP, PTT ####[address] , [place] 30[address]83 lab Director: Mario Anne MD Staging: Normal [facility] Comment on above: Result Comment: Stag e 1: Some kidney damage normal GFR Stage 2: Mild kidney damage GFR 60-89 Stage 3: Moderate kidney damage GFR 30-59 Stage 4: Severe kidney damage GFR 15-29 Stage 5: Severe kidney damage GFR <15 ESRD - chronic treatment by dialysis or transplant Performed By: #### L IP, CMPX, PT, CDP, PTT ####[address] , [place] 1793083 lab Director: Mario Anne MD Urea nitrogen [Mass/Vol] 8 mg/dL Normal 6-20 [facility] Comment on above: Performed By: #### L IP, CMPX, PT, CDP, PTT ####[facility] [place] [address] lab Director: Mario Anne MD Comprehensive Metabolic Pane l w/ Reflex to on 11-28-2018 Albumin [Mass/Vol] 3.7 g/dL 3.5 - 5.2 g/dL [place] Albumin/Globulin [Mass ratio] 1.2 {ratio} [place] ALP [Catalytic activity/Vol] 47 U/L 35 - 104 U/L [place] ALT [Catalytic activity/Vol] 18 U/L 5 - 33 U/L [place] Anion gap [Moles/Vol] 16 mmol/L 9 - 17 mmol/L [place] AST [Catalytic activity/Vol] 23 U/L <32 [place] Bilirubin Ql (U) 0.33 mg/dL 0.3 - 1.2 mg/dL [place] Bun/Cre Ratio 10 [place] Calcium [Mass/Vol] 9.1 mg/dL 8.6 - 10. 4 mg/dL [place] Chloride [Moles/Vol] 102 mmol/L 98 - 10 7 mmol/L [place] CO2 [Moles/Vol] 20 mmol/L 20 - 31 mmol/L [place] Creatinine [Mass/Vol] 0.81 mg/dL 0.5 - 0.9 mg/dL [place] GFR >60 >60 mL/min [place] GFR Non- >60 >60 mL/min [place] Glucose [Mass/Vol] 93 mg/dL 70 - 99 mg/dL [place] Potassium [Moles/Vol] 3.8 mmol/L 3.7 - 5.3 mmol/L [place] Protein [Mass/Vol] 6.9 g/dL 6.4 - 8.3 g/dL [place] Sodium [Moles/Vol] 138 mmol/L 135 - 144 mmol/L [place] Urea nitrogen [Mass/Vol] 8 mg/dL 6 - 20 mg/dL [place] Herpes Type I/II, IgGon 11-19 Herpes Type I, IgG 1.22 High <0.91 [facility] Comment on above: Result Comment: Reference Range: <=0.90 Negative 0.91-1.09 Equivocal >=1.10 Positive Performed By: #### C BC #### [facility] [address] [place], [place] [id number] [employer]: Mario Anne MD Herpes Type II, IgG 0.56 Normal <0.91 [facility] Comment on above: Result Comment: Reference Range: <=0.90 Negative 0.91-1.09 Equivocal >=1.10 Positive Performed By: #### C BC #### [address] [place], [place] 0497483 [employer]: Mario Anne MD Herpes Type I/II,IgMon 11-28 Herpes Type I/II,IgM 1.09 High <0.91 [facility] Comment on above: Result Comment: Reference [...] weeks. Performed By: #### C BC #### [facility] [address] [place] [address] [place] [address] [employer]: Mario Anne MD Lactate, Sepsison 11-28-2018 Lactic Acid, Sepsis 1.8 mmol/L Normal 0.5-1.9 [facility] Comment on above: Performed By: #### T YS #### [facility] [address] [place] [address] [place] [address] [employer]: Mario Anne MD Lactic Acid,Sep Wbld NOT REPORTED Normal 0.5-1.9 [facility] Comment on above: Performed By: #### T YS #### [facility] [address] [place] [address] [employer]: Mario Anne MD Lactic Acid, Sepsis 1.8 mmol/L 0.5 - 1. 9 mmol/L [place], [place] Lactic Acid, Sepsis, Whole Blood NOT REPORTED 0.5 - 1.9 mmol/L [place] Lipaseon 11-28-2018 Lipase [Catalytic activity/Vol] 21 U/L Normal 13-60 [facility] Comment on above: Performed By: #### L IP, CMPX, PT, CDP, PTT ####[facility] [place] [address] Lab Director: Mario Anne MD Lipase [Catalytic activity/Vol] 21 U/L 13 - 60 U/L [place], [place] Lupus Anticoagulanton 2018 Antiphospholipid IgA 0.8 APU Normal <12 [facility] Comment on above: Result Comment: Reference Range: 12 - 15 Equivocal >15 Positive Performed By: #### C BC #### [facility] [address] [place] [address] [employer]: Mario Anne MD Antiphospholipid IgG 3.0 GPU Normal <20 [facility] Comment on above: Result Comment: Reference Range: 20.0 - 29.9 Low Positive 30.0 - 79.9 Moderate Positive >79.9 High Positive Performed By: #### C BC #### [facility] [address] [place] [address] [employer]: Mario Anne MD Antiphospholipid IgM 6.6 MPU Normal <20 [facility] Comment on above: Result Comment: Reference Range: 20.0 - 29.9 Low Positive 30.0 - 79.9 Moderate Positive >79.9 High Positive Performed By: #### C BC #### [facility] [address] [place] [address] [employer]: Mario Anne MD Metabolic Panelon 11-28-2018 GFR/1.73 sq M predicted among non-blacks MDRD (S/P/Bld) [Vol rate/Area] [place], [place] Comment on above: Average GFR for 20-2 9 years old: 116 mL/min/1.73sq m Chronic Kidney Disease: <60 mL/min/1.73sq m Kidney failure: <15 mL/min/1.73sq m eGFR calculated using average adult body mass. Additional eGFR calculator available at: http://[email or web address]/multiple_crcl_2012.htm Stage 1: Some kidney damage normal GFR Stage 2: Mild kidney damage GFR 60-89 Stage 3: Moderate kidney damage GFR 30-59 Stage 4: Severe kidney damage GFR 15-29 Stage 5: Severe kidney damage GFR <15 ESRD - chronic treatment by dialysis or transplant Microscopic Urinalysison Amorphous, UA NOT REPORTED None [place], [place] Bacteria, UA NOT REPORTED None [place], [place] Casts UA NOT REPORTED /LPF [place], [place] Crystals UA NOT REPORTED None /HPF [place], [place] Epithelial Cells UA 2 TO 5 [place] Mucus, UA NOT REPORTED None [place], [place] Other Observations UA NOT REPORTED NOT REQ. M [place], [place] RBC (U) [#/Vol] 5 TO 10 [place], [place] Renal Epithelial, Urine NOT REPORTED 0 /HPF [place], [place] Trichomonas, UA NOT REPORTED None [facility] [place] WBC, UA 10 TO 20 [place] Yeast, UA NOT REPORTED None [place], [place] - [place] Otheron 11-28-2018 Interpretation and review of laboratory results Abnormal [place], [place] PTon 11-28-2018 INR Coag (PPP) [Relative time] 1.3 {INR} High 0.9-1.2 [facility] Comment on above: Performed By: #### L IP, CMPX, PT, CDP, PTT ####[facility] [place] [address] [facility] Director: Mario Anne MD PT Coag (PPP) [Time] 13.4 s High 9.7-12.2 [facility] Comment on above: Performed By: #### L IP, CMPX, PT, CDP, PTT ####[facility] , [place] [id number] [facility] Director: Mario Anne MD Parvovirus B19 Panelon 11-28 Parvovirus IgG B19 6.29 IV High <=0.89 [facility] Comment on above: Result Comment: (NOT [...] time. Performed By: #### C BC #### [facility] [address] [place], [facility]83 [employer]: Mario Anne MD Parvovirus IgM B19 0.15 IV Normal <=0.89 [facility] Comment on above: Result Comment: (NOT [...] levels of specific IgM antibodies. Performed by [facility], [address] [facility] [place] [address] [email or web address], Fernando Valencia MD, Lab. Director Performed By: #### C BC #### [facility] [address] [place], [place] [id number] [employer]: Mario Anne MD Protein C Antigenicon 2018 Protein [Mass/Vol] 83 % Normal 63-153 [facility] Comment on above: Result Comment: (NOT E) INTERPRETIVE INFORMATION: Protein C, Total Antigen Patients on warfarin may have decreased protein C values. Patients should be off warfarin therapy for two weeks for accurate measurement of protein C. Access complete set of age- and/or gender-specific reference intervals for this test in the [facility] Test Directory ([employer]). Performed by [facility], [address] [facility] [place] [address] [email or web address], Fernando Valencia MD, Lab. Director Performed By: #### C BC #### [address] [place] [address] [employer]: Mario Anne MD Protein S, Antigenicon 11-28 Protein [Mass/Vol] 71 % Normal 63-126 [facility] Comment on above: Result Comment: (NOT E) INTERPRETIVE INFORMATION: Protein S, Total Antigen Patients on warfarin may have decreased protein S values. Patients should be off warfarin therapy for two weeks for accurate measurement of protein S. Access complete set of age- and/or gender-specific reference intervals for this test in the [facility] Test Directory ([employer]). Performed by [facility], [address] [facility],[place] [id number] [email or web address], Fernando Valencia MD, Lab. Director Performed By: #### C BC #### [facility] [address] [place] [address] [employer]: Mario Anne MD Protime-INRon 11-28-2018 INR Coag (PPP) [Relative time] 1.3 {INR} High [place] PT Coag (PPP) [Time] 13.4 s High [facility], [place] Rubella IgM, Abon 11-28-2018 Rubella IgM, Ab <10.0 Normal <=19.9 [facility] Comment on above: Result Comment: (NOT [...] the amount of antibody present. Performed by [facility], [address] [place] [id number] www.[email or web address], Fernando Valencia MD, Lab. Director Performed By: #### C BC #### [facility] [address] [place] [address] [employer]: Mario Anne MD Urinalysison 11-28-2018 Bilirubin Urine Negative NEGATIVE [facility] [place], [place] Color, UA YELLOW YELLOW [facility], [place] Glucose, Ur Negative NEGATIVE [facility] [place] Interpretation and review of laboratory results Abnormal [facility], [place] Ketones Ql (U) Negative NEGATIVE [facility] [place], [place] Leukocyte esterase Test strip Ql (U) SMALL Abnormal NEGATIVE [facility], [place] Nitrite, Urine Negative NEGATIVE [facility], [place] pH, UA 6.5 [place], [place] Protein (U) [Mass/Vol] TRACE Abnormal NEGATIVE [facility], [place] Specific [place], UA 1.020 [place], [place] Turbidity UA CLEAR CLEAR [place], [place] Urinalysis Comments NOT REPORTED [place], [place] Urine Hgb 3+ Abnormal NEGATIVE [place], [place] Urobilinogen, Urine Normal Normal [place], [place] Urinalysis, Routineon 2018 Acetoacetic Acid,Ur Negative Normal NEG [facility] Comment on above: Performed By: #### T YS #### [facility] [address] [place] [address] [employer]: Mario Anne MD Bilirubin, SemiQt,Ur Negative Normal [facility] Comment on above: Performed By: #### T YS #### [facility] [address] [place] [address] [employer]: Mario Anne MD Color (U) YELLOW Normal YEL [facility] Comment on above: Performed By: #### T YS #### [facility] [address] [place] [address] [employer]: Mario Anne MD Glucose Ql (U) Negative Normal NEG [facility] Comment on above: Performed By: #### T YS #### [facility] [address] [place], [facility]83 [employer]: Mario Anne MD Hemoglobin, Ur 3+ Abnormal NEG [facility] Comment on above: Performed By: #### T YS #### [facility] [address] [place] [address] [employer]: Mario Anne MD Leukocyte esterase Test strip Ql (U) SMALL Abnormal NEG [facility] Comment on above: Performed By: #### T YS #### [facility] [address] [place] [address] [employer]: Mario Anne MD Nitrite,Ur Negative Normal NEG [facility] Comment on above: Performed By: #### T YS #### [facility] [address] [place], [place] [id number] [employer]: Mario Anne MD pH (U) 6.5 [pH] Normal 5.0-9.0 [facility] Comment on above: Performed By: #### T YS #### [facility] [address] [place], [place] [address]83 [employer]: Mario Anne MD Protein Ql (U) TRACE Abnormal NEG [facility] Comment on above: Performed By: #### T YS #### [facility] [address] [place], [place] [address] [employer]: Mario Anne MD Specific gravity (U) [Rel density] 1.020 Normal 1.010-1.020 [facility] Comment on above: Performed By: #### T YS #### [facility] [address] [place] [address] [employer]: Mario Anne MD Turbidity CLEAR Normal CLEAR [facility] Comment on above: Performed By: #### T YS #### [facility] [address] [place], [place] 3684[address] [employer]: Mario Anne MD Urobilinogen,Ur Normal Normal NORM [facility] Comment on above: Performed By: #### T YS #### [facility] [address] [place] [address] [employer]: Mario Anne MD Comment NOT REPORTED Normal [facility] Comment on above: Performed By: #### T YS #### [facility] [address] [place], [place] 3065483 [employer]: Mario Anne MD Urinalysis,Microon 9 ----- Normal [facility] Comment on above: Performed By: #### T YS #### [facility] [address] [place], [place] [address] [employer]: Mario Anne MD Epithelial cells LM.HPF (Urine sed) [#/Area] 2 TO 5 Normal 0-25 [facility] Comment on above: Performed By: #### T YS #### [facility] [address] [place] [address] [employer]: Mario Anne MD RBC (U) [#/Vol] 5 TO 10 Normal 0-2 [facility] Comment on above: Performed By: #### T YS #### [address] [place] [address] [employer]: Mario Anne MD WBC (U) [#/Vol] 10 TO 20 Normal 0-5 [facility] Comment on above: Performed By: #### T YS #### [address] [place] [address] [employer]: Mario Anne MD Amorphous sediment LM Ql (Urine sed) NOT REPORTED Normal [facility] Comment on above: Performed By: #### T YS #### [address] [place] [address] [employer]: Mario Anne MD Bacteria LM.HPF (Urine sed) [#/Area] NOT REPORTED Normal [facility] Comment on above: Performed By: #### T YS #### [address] [place], [place] [address] [employer]: Mario Anne MD Casts LM.LPF (Urine sed) [#/Area] NOT REPORTED Normal [facility] Comment on above: Performed By: #### T YS #### [address] [place] [address] [employer]: Mario Anne MD Crystals LM Nom (Urine sed) NOT REPORTED Normal [facility] Comment on above: Performed By: #### T YS #### [facility] [address] [place], [place] [phone] [employer]: Mario Anne MD Epithelial, Renal NOT REPORTED Normal 0 [facility] Comment on above: Performed By: #### T YS #### [facility] [address] [place], [place] [address]36[address] [employer]: Mario Anne MD Mucus Strands NOT REPORTED Normal NONE [facility] Comment on above: Performed By: #### T YS #### [facility] [address] [place], [place] 9[address]83 [employer]: Mario Anne MD Other Observations NOT REPORTED Normal NREQ [facility] Comment on above: Performed By: #### T YS #### [facility] [address] [place], [place] 2894383 [employer]: Mario Anne MD Trichomonas NOT REPORTED Normal NONE [facility] Comment on above: Performed By: #### T YS #### [facility] [address] [place], [place] 8458483 [employer]: Mario Anne MD Yeast LM Ql (Urine sed) NOT REPORTED Normal [facility] Comment on above: Performed By: #### T YS #### [facility] [address] [place], [place] 5047383 [employer]: Mario Anne MD Venous Blood Gaseson 019 HCO3 (Bld) [Moles/Vol] 20.5 mmol/L Low 24.0-30.0 [facility] Comment on above: Performed By: #### V BG ####[facility] [place] [address] Lab Director: Mario Anne MD Negative Base Excess 2.9 mmol/L High 0.0-2.0 [facility] Comment on above: Performed By: #### V BG ####[facility] [address] , [place] 36[address] Lab Director: Mario Anne MD Oxygen (Bld) [Partial pressure] 22.2 mm[Hg] Low 30.0-50.0 [facility] Comment on above: Performed By: #### V BG ####[address] [place] [address] Lab Director: Mario Anne MD Oxygen saturation in Blood 40.2 % Low 60.0-85.0 [facility] Comment on above: Performed By: #### V BG ####[address] , [place] 820[address]83 lab Director: Mario Anne MD pCO2 31.9 Low 39-55 [facility] Comment on above: Performed By: #### V BG ####[address] , [facility]83 Lab Director: Mario Anne MD pH (Bld) 7.425 [pH] High 7.32-7.42 [facility] Comment on above: Performed By: #### V BG ####[address] , [place] 3284[address] lab Director: Mario Anne MD Marco Test NOT REPORTED Normal [facility] Comment on above: Performed By: #### V BG ####[address] , [place] 58[address]83 Lab Director: Mario Anne MD Body Temp. NOT REPORTED Normal [facility] Comment on above: Performed By: #### V BG ####[address] , [place] 0[address]83 Lab Director: Mario Anne MD Carboxy Hgb NOT REPORTED Normal 0-5 [facility] Comment on above: Performed By: #### V BG ####[address] , [place] [id number] Lab Director: Mario Anne MD FIO2 NOT REPORTED Normal [facility] Comment on above: Performed By: #### V BG ####[address] [place] [address] Lab Director: Mario Anne MD Methemoglobin NOT REPORTED Normal 0.0-1.9 [facility] Comment on above: Performed By: #### V BG ####[address] [place] [address] Lab Director: Mario Anne MD Mode NOT REPORTED Normal [facility] Comment on above: Performed By: #### V BG ####[address] [place] [address] Lab Director: Mario Anne MD Notification Time NOT REPORTED Normal [facility] Comment on above: Performed By: #### V BG ####[address] [place] [address] Lab Director: Mario Anne MD Notification: NOT REPORTED Normal [facility] Comment on above: Performed By: #### V BG ####[address] [place] [address] Lab Director: Mario Anne MD O2 Device/Flow/% NOT REPORTED Normal [facility] Comment on above: Performed By: #### V BG ####[address] , [place] 3[address] Lab Director: Mario Anne MD Oxyhemoglobin NOT REPORTED Normal 95.0-98.0 [facility] Comment on above: Performed By: #### V BG ####[address] [place] [address] Lab Director: Mario Anne MD Pco2 Adj'd for Temp. NOT REPORTED Normal 39.0-55.0 [facility] Comment on above: Performed By: #### V BG ####[address] [place] [address] Lab Director: Mario Anne MD PEEP/CPAP NOT REPORTED Normal [facility] Comment on above: Performed By: #### V BG ####[address] [place] [address] Lab Director: Mario Anne MD pH Adjst'd for Temp. NOT REPORTED Normal 7.320-7.420 M [facility] Comment on above: Performed By: #### V BG ####[address] [place] [address] Lab Director: Mario Anne MD pO2 Adj'd for Temp. NOT REPORTED Normal 30.0-50.0 [facility] Comment on above: Performed By: #### V BG ####[address] [place] [address] Lab Director: Mario Anne MD Positive Base Excess NOT REPORTED Normal 0.0-2.0 [facility] Comment on above: Performed By: #### V BG ####[address] [place] [address] Lab Director: Mario Anne MD PSV NOT REPORTED Normal [facility] Comment on above: Performed By: #### V BG ####[address] [place] [address] Lab Director: Mario Anne MD Pt. Position NOT REPORTED Normal [facility] Comment on above: Performed By: #### V BG ####[address] [place] [address] Lab Director: Mario Anne MD Set Rate NOT REPORTED Normal [facility] Comment on above: Performed By: #### V BG ####[address] [place] [address] Lab Director: Mario Anne MD Site Drawn NOT REPORTED Normal [facility] Comment on above: Performed By: #### V BG ####[facility] , [place] [id number] Lab Director: Mario Anne MD Text for Respiratory NOT REPORTED Normal [facility] Comment on above: Performed By: #### V BG ####[facility] , [facility]83 Lab Director: Mario Anne MD Total Hb NOT REPORTED Normal 12.0-16.0 [facility] Comment on above: Performed By: #### V BG ####[facility] , [facility] lab Director: Mario Anne MD Total Rate NOT REPORTED Normal [facility] Comment on above: Performed By: #### V BG ####[facility] , [facility]83 lab Director: Mario Anne MD VT NOT REPORTED Normal [facility] Comment on above: Performed By: #### V BG ####[facility] , [facility]83 lab Director: Mario Anne MD XR CHEST [...] Matt Mayer MD 11/28/18 Final result Normal [facility] Cardiomegaly and congestion magnified by technique. No airspace consolidation. [facility] [place], [place], M[facility]pn Incoming Radiant Results From [employer] - 11/28/2018 8:56 PM EDT EXAMINATION: ONE XRAY VIEW OF THE CHEST 11/28/2018 7:38 pm COMPARISON: None. HISTORY: ORDERING SYSTEM PROVIDED HISTORY: R/O PNA TECHNOLOGIST PROVIDED HISTORY: R/O PNA FINDINGS: Mild congestion, likely magnified by technique. No airspace consolidation, effusion, or pneumothorax. Borderline cardiomegaly. IMPRESSION: Cardiomegaly and congestion magnified by technique. No airspace consolidation. [place], [place] EXAMINATION: ONE XRA Y VIEW OF THE CHEST 11/28/2018 7:38 pm COMPARISON: None. HISTORY: ORDERING SYSTEM PROVIDED HISTORY: R/O PNA TECHNOLOGIST PROVIDED HISTORY: R/O PNA FINDINGS: Mild congestion, likely magnified by technique. No airspace consolidation, effusion, or pneumothorax. Borderline cardiomegaly. [place], [place] CMV Ab,IgGon 11-27-2018 CMV Ab,IgG 0.1 Normal <0.9 [facility] Comment on above: Result Comment: Reference [...] FA2, MATIAS, TOXOG, HSVM12, CMVG, FA5 #### [facility] [employer] [facility] [place], [place] [address]27[address] [employer]: Geo Mar MD #### CBC, FIB #### [facility] [address] [place] [address] [employer]: Mario Anne MD #### APROTS, APARVP, APROTC, ARUBGM #### [facility] [address] [place] [address] [employer]: Fernando Valencia MD #### LUPPRO #### [facility] [employer] [facility] [place], [place] [id number] [employer]: Goe Mar MD [address] [place] [address] [employer]: Mario Anne MD CMV Ab,IgMon 11-27-2018 CMV Ab,IgM 0.4 Normal <0.9 [facility] Comment on above: Result Comment: Reference [...] findings. Performed By: #### C BC #### [address] [place] [address] [employer]: Mario Anne MD CBCon 11-25-2018 Erythrocyte distribution width (RBC) [Ratio] 13.2 % Normal 11.8-14.4 [facility] Comment on above: Performed By: #### T OXOM, HSVG12, CMVM, FA2, MATIAS, TOXOG, HSVM12, CMVG, FA5 #### [facility] [place] [address] [employer]: Geo Mar MD #### CBC, FIB #### [address] [place] [address] [employer]: Mario Anne MD #### APROTS, APARVP, APROTC, ARUBGM #### [facility] [address] [place] [address] [employer]: Fernando Valencia MD #### LUPPRO #### [place] [address] [place], [place] [id number] [employer]: Geo Mar MD [address] [place] [address] [employer]: Mario Anne MD Hematocrit (Bld) [Volume fraction] 30.4 % Low 36.3-47.1 [facility] Comment on above: Performed By: #### T OXOM, HSVG12, CMVM, FA2, MATIAS, TOXOG, HSVM12, CMVG, FA5 #### [address] [address] [employer]: Geo Mar MD #### CBC, FIB #### [address] [place], [place] [address] [employer]: Mario Anne MD #### APROTS, APARVP, APROTC, ARUBGM #### [facility] [address] [place], [place] [id number] [employer]: Fernando Valencia MD #### LUPPRO #### [address] [address] [employer]: Geo Mar MD [address] [place] [address] [employer]: Mario Anne MD Hemoglobin (Bld) [Mass/Vol] 9.7 g/dL Low 11.9-15.1 [facility] Comment on above: Performed By: #### T OXOM, HSVG12, CMVM, FA2, MATIAS, TOXOG, HSVM12, CMVG, FA5 #### [address] [address] [employer]: Geo Mar MD #### CBC, FIB #### [address] [place], [place] 5013983 [employer]: Mario Anne MD #### APROTS, APARVP, APROTC, ARUBGM #### [facility] [address] [place], [place] [address] [employer]: Fernando Valencia MD #### LUPPRO #### [address] [place] [address] [employer]: Geo Mar MD [address] [place] [address] [employer]: Mario Anne MD MCH (RBC) [Entitic mass] 28.2 pg Normal 25.2-33.5 [facility] Comment on above: Performed By: #### T OXOM, HSVG12, CMVM, FA2, MATIAS, TOXOG, HSVM12, CMVG, FA5 #### [address] [address] [employer]: Geo Mar MD #### CBC, FIB #### [address] [place] [address] [employer]: Mario Anne MD #### APROTS, APARVP, APROTC, ARUBGM #### [facility] [address] [place] [address] [employer]: Fernando Valencia MD #### LUPPRO #### [address] [address] [employer]: Geo Mar MD [address] [place] [address] [employer]: Mario Anne MD MCHC (RBC) [Mass/Vol] 31.9 g/dL Normal 28.4-34.8 [facility] Comment on above: Performed By: #### T OXOM, HSVG12, CMVM, FA2, MATIAS, TOXOG, HSVM12, CMVG, FA5 #### [address] [address] [employer]: Geo Mar MD #### CBC, FIB #### [address] [place] [address] [employer]: Mario Anne MD #### APROTS, APARVP, APROTC, ARUBGM #### [facility] [address] [place] [address] [employer]: Fernando Valencia MD #### LUPPRO #### [address] [address] [employer]: Geo Mar MD [address] [place] [address] [employer]: Mario Anne MD MCV (RBC) [Entitic vol] 88.4 fL Normal 82.6-102.9 [facility] Comment on above: Performed By: #### T OXOM, HSVG12, CMVM, FA2, MATIAS, TOXOG, HSVM12, CMVG, FA5 #### [address] [address] [employer]: Geo Mar MD #### CBC, FIB #### [address] [place] [phone] [employer]: Mario Anne MD #### APROTS, APARVP, APROTC, ARUBGM #### [facility] [address] [place], [place] [id number] [employer]: Fernando Valnecia MD #### LUPPRO #### [address] [address] [employer]: Geo Mar MD [address] [place] [phone] [employer]: Mario Anne MD NRBC Automated 0.0 per 100 WBC Normal 0.0 [facility] Comment on above: Performed By: #### T OXOM, HSVG12, CMVM, FA2, MATIAS, TOXOG, HSVM12, CMVG, FA5 #### [address] [address] [employer]: Geo Mar MD #### CBC, FIB #### [address] [place], [facility]83 [employer]: Mario Anne MD #### APROTS, APARVP, APROTC, ARUBGM #### [facility] [address] [place] [address] [employer]: Fernando Valencia MD #### LUPPRO #### [address] [address] [employer]: Geo Mar MD [address] [place] 1560683 [employer]: Mario Anne MD Platelet mean volume (Bld) [Entitic vol] 10.4 fL Normal 8.1-13.5 [facility] Comment on above: Performed By: #### T OXOM, HSVG12, CMVM, FA2, MATIAS, TOXOG, HSVM12, CMVG, FA5 #### [address] [address] [employer]: Geo Mar MD #### CBC, FIB #### [address] [place] [address] [employer]: Mario Anne MD #### APROTS, APARVP, APROTC, ARUBGM #### [facility] [address] [place] [address] [employer]: Fernando Valencia MD #### LUPPRO #### [address] [address] [employer]: Geo Mar MD [address] [place] 1560683 [employer]: Mario Anne MD Platelets (Bld) [#/Vol] 247 10*3/uL Normal 138-453 [facility] Comment on above: Performed By: #### T OXOM, HSVG12, CMVM, FA2, MATIAS, TOXOG, HSVM12, CMVG, FA5 #### [address] [address] [employer]: Geo Mar MD #### CBC, FIB #### [address] [place] [address] [employer]: Mario Anne MD #### APROTS, APARVP, APROTC, ARUBGM #### [facility] [address] [place] [address] [employer]: Fernando Valencia MD #### LUPPRO #### [address] [address] [employer]: Geo Mar MD [address] [place], [place] 0145483 [employer]: Mario Anne MD RBC (Bld) [#/Vol] 3.44 10*6/uL Low 3.95-5.11 [facility] Comment on above: Performed By: #### T OXOM, HSVG12, CMVM, FA2, MATIAS, TOXOG, HSVM12, CMVG, FA5 #### [address] [address] [employer]: Geo Mar MD #### CBC, FIB #### [address] [place] [address] [employer]: Mario Anne MD #### APROTS, APARVP, APROTC, ARUBGM #### [facility] [address] [place] [address] [employer]: Fernando Valencia MD #### LUPPRO #### [address] [address] [employer]: Geo Mar MD [address] [place], [place] 0[address]83 [employer]: Mario Anne MD WBC (Bld) [#/Vol] 13.1 10*3/uL High 3.5-11.3 [facility] Comment on above: Performed By: #### T OXOM, HSVG12, CMVM, FA2, MATIAS, TOXOG, HSVM12, CMVG, FA5 #### [address] [place], [place] [phone] [employer]: Geo Mar MD #### CBC, FIB #### [address] [place], [place] [phone] [employer]: Mario Anne MD #### APROTS, APARVP, APROTC, ARUBGM #### [facility] [address] [place] [address] [employer]: Fernando Valencia MD #### LUPPRO #### [address] [phone] [employer]: Geo Mar MD [address] [place] [phone] [employer]: Mario Anne MD Drug Scr, Abuse, Uron 2018 Amphetamine(s),Ur Negative Normal NEG [facility] Comment on above: Performed By: #### D AU ####[address] [place], [place] [phone] Lab Director: Mario Anne MD Barbiturate(s),Ur Negative Normal NEG [facility] Comment on above: Performed By: #### D AU ####[address] , [place] [phone] Lab Director: Mario Anne MD Base excess Calc (Bld) [Moles/Vol] Negative Normal [facility] Comment on above: Performed By: #### D AU ####[address] [place] [address] Lab Director: Mario Anne MD Benzodiazepine(s) Negative Normal NEG [facility] Comment on above: Performed By: #### D AU ####[address] [place] [address] Lab Director: Mario Anne MD Buprenorphrine, Ur Negative Normal [facility] Comment on above: Performed By: #### D AU ####[address] [place] [address] Lab Director: Mario Anne MD Cannabinoid(s),Ur Negative Normal NEG [facility] Comment on above: Performed By: #### D AU ####[address] [place] [address] Lab Director: Mario Anne MD Methadone Ql (U) Negative Normal NEG [facility] Comment on above: Performed By: #### D AU ####[address] , [facility]83 [facility] Director: Mario Anne MD Methamphetamine, Ur Negative Normal [facility] Comment on above: Performed By: #### D AU ####[address] [place] [address] Lab Director: Mario Anne MD Opiate(s), Ur Negative Normal [facility] Comment on above: Performed By: #### D AU ####[address] [place] [address] Lab Director: Mario Anne MD Oxycodone, Urine Negative Normal NEG [facility] Comment on above: Performed By: #### D AU ####[address] [place], [place] 4409383 Lab Director: Mario Anne MD Phencyclidine, Ur Negative Normal [facility] Comment on above: Performed By: #### D AU ####[address] , [place] [phone] Lab Director: Mario Anne MD Propoxyphene,Urine Negative Normal NEG [facility] Comment on above: Performed By: #### D AU ####[facility] [place] [address] Lab Director: Mario Anne MD Tricyclic antidepressants Screen Ql (U) Negative Normal NEG [facility] Comment on above: Result Comment: Drug screen results are to be used for medical purposes only. All positive results are unconfirmed. Testing for employment or legal uses should be sent to a reference laboratory for confirmation. Performed By: #### D AU ####[address] [place] [address] [facility] Director: Mario Anne MD Interpretive Info NOT REPORTED Normal [facility] Comment on above: Performed By: #### D AU ####[address] , [facility]83 [facility] Director: Mario Anne MD MDMA, Urine NOT REPORTED Normal NEG [facility] Comment on above: Performed By: #### D AU ####[facility] [place] , [facility]83 [facility] Director: Mario Anne MD Fibrinogenon 11-25-2018 Fibrinogen 465 mg/dL High 185-451 [facility] Comment on above: Performed By: #### T OXOM, HSVG12, CMVM, FA2, MATIAS, TOXOG, HSVM12, CMVG, FA5 #### [address] [place], [place] [phone] [employer]: Geo Mar MD #### CBC, FIB #### [facility] [address] [place] [address] [employer]: Mario Anne MD #### APROTS, APARVP, APROTC, ARUBGM #### [facility] [address] [place] [address] [employer]: Fernando Valencia MD #### LUPPRO #### [facility] [address] [place] [address] [employer]: Geo Mar MD [facility] [address] [place], [place] [phone] [employer]: Mario Anne MD Hgb/Hcton 11-25-2018 Hematocrit (Bld) [Volume fraction] 30.4 % Low 36.3-47.1 [facility] Comment on above: Performed By: #### H H ####[address] , [place] [phone] Lab Director: Mario Anne MD Hemoglobin (Bld) [Mass/Vol] 9.8 g/dL Low 11.9-15.1 [facility] Comment on above: Performed By: #### H H ####[address] [place] [address]([facility])[phone] Director: Mario Anne MD Lupus Anticoagulanton 2018 aPTT Coag (Bld) [Time] 27.1 s Normal 23.2-34.4 [facility] Comment on above: Performed By: #### C BC #### [address] [place], [place] [phone] [employer]: Mario Anne MD INR Coag (PPP) [Relative time] 0.9 {INR} Normal 0.9-1.2 [facility] Comment on above: Performed By: #### C BC #### [address] [place], [place] 4043883 [employer]: Mario Anne MD PT Coag (PPP) [Time] 9.7 s Normal 9.7-12.2 [facility] Comment on above: Performed By: #### C BC #### [address] [place], [place] 6703983 [employer]: Mario Anne MD Lupus Anticoagulant NOT REPORTED Normal [facility] Comment on above: Performed By: #### C BC #### [facility] [address] [place] [address] [employer]: Mario Anne MD Rubella Ab, IgGon 11-25-2018 Rubella Ab, IgG 27.5 IU/mL Normal [facility] Comment on above: Result Comment: REFERENCE RANGE: <5.0 NON-REACTIVE (non-immune) 5.0 TO 9.9 EQUIVOCAL >=10.0 REACTIVE (immune) Performed By: #### T OXOM, HSVG12, CMVM, FA2, MATIAS, TOXOG, HSVM12, CMVG, FA5 #### [address] [address] [employer]: Geo Mar MD #### CBC, FIB #### [facility] [address] [place] [address] [employer]: Mario Anne MD #### APROTS, APARVP, APROTC, ARUBGM #### [facility] [address] [place] [address] [employer]: Fernando Valencia MD #### LUPPRO #### [address] [address] [employer]: Geo Mar MD [address] [place] [address] [employer]: Mario Anne MD Surgical Pathologyon 019 Surgical Pathology (NOTE) [id number] [facility] ANATOMIC PATHOLOGY [address] [place] [id number] SURGICAL PATHOLOGY CONSULTATION Patient Name: DEION CUMMINGS [facility] Rec: [id number] Path Number: [id number] Collected: 11/25/2018 Received: 11/29/2018 Reported: 11/30/2018 16:37 -- Diagnosis -- PLACENTA, 21 WEEKS: SMALL PLACENTA (230 G) WITH SEVERE ACUTE CHORIOAMNIONITIS AND ACUTE FUNISITIS. Harvey Hanna Electronically Signed Out ajb11/30/2018 Clinical Information Operative Findings: PLACENTA Source of [...] villous capillaries: Rare Other: Few microcalcifications Normal [facility] Comment on above: Performed By: #### T OXOM, HSVG12, CMVM, FA2, MATIAS, TOXOG, HSVM12, CMVG, FA5 #### [address] [place] [address] [employer]: Geo Mar MD #### CBC, FIB #### [facility] [address] [place] [address] [employer]: Mario Anne MD #### APROTS, APARVP, APROTC, ARUBGM #### [facility] [address] [place] [address] [employer]: Fernando Valencia MD #### LUPPRO #### [facility] [address] [place], [place] [phone] [employer]: Geo Mar MD [address] [place] [address] [employer]: Mario Anne MD Thyroid Stim. Horm.on 2018 TSH Qn 1.78 m[IU]/L Normal 0.30-5.00 [facility] Comment on above: Performed By: #### T SH ####[address] [place] [address] Lab Director: Mario Anne MD Toxoplasma Ab,IgGon 11-26-19 19 Toxoplasma Ab,IgG <0.[address] [facility] Comment on above: Result Comment: REFERENCE [...] FA2, MATIAS, TOXOG, HSVM12, CMVG, FA5 #### [address] [place], [place] [phone] [employer]: Geo Mar MD #### CBC, FIB #### [address] [place] [address] [employer]: Mraio Anne MD #### APROTS, APARVP, APROTC, ARUBGM #### [facility] [address] [place] [address] [employer]: Fernando Valencia MD #### LUPPRO #### [address] [place], [place] [phone] [employer]: Geo Mar MD [address] [place] [address] [employer]: Mario Anne MD Toxoplasma Ab,IgMon 11-26-19 19 Toxoplasma Ab,IgM 0.[address] [facility] Comment on above: Result Comment: REFERENCE RANGE: <0.90 NON-REACTIVE 0.90 TO 1.00 INDETERMINANT >=1.10 REACTIVE Performed By: #### T OXOM, HSVG12, CMVM, FA2, MATIAS, TOXOG, HSVM12, CMVG, FA5 #### [address] [place], [place] 1007908 [employer]: Geo Mar MD #### CBC, FIB #### [address] [place] [address] [employer]: Mario Anne MD #### APROTS, APARVP, APROTC, ARUBGM #### [facility] [address] [place] [address] [employer]: Fernando Valencia MD #### LUPPRO #### [address] [phone] [employer]: Geo Mar MD [address] [place] [address] [employer]: Mario Anne MD Type + Screenon 11-25-2018 Type + Screen Sample Expiration 11/28/2018 Arm Band Number [id number] ABO/Rh(D) O POSITIVE Antibody Screen NEGATIVE Normal [facility] Comment on above: Performed By: #### T YS ####[address] [place] [address] Lab Director: Mario Anne MD CBCon 11-24-2018 Erythrocyte distribution width (RBC) [Ratio] 13.2 % Normal 11.8-14.4 [facility] Comment on above: Performed By: #### C BC #### [address] [place] [address] [employer]: Mario Anne MD Hematocrit (Bld) [Volume fraction] 31.6 % Low 36.3-47.1 [facility] Comment on above: Performed By: #### C BC #### [facility] [address] [place] [address] [employer]: Mario Anne MD Hemoglobin (Bld) [Mass/Vol] 10.1 g/dL Low 11.9-15.1 [facility] Comment on above: Performed By: #### C BC #### [facility] [address] [place] 1560683 [employer]: Mario Anne MD MCH (RBC) [Entitic mass] 28.1 pg Normal 25.2-33.5 [facility] Comment on above: Performed By: #### C BC #### [address] [place] 1560683 [employer]: Mario Anne MD MCHC (RBC) [Mass/Vol] 32.0 g/dL Normal 28.4-34.8 [facility] Comment on above: Performed By: #### C BC #### [address] [place] 1560683 [employer]: Mario Anne MD MCV (RBC) [Entitic vol] 88.0 fL Normal 82.6-102.9 [facility] Comment on above: Performed By: #### C BC #### [address] [place] [address] [employer]: Mario Anne MD NRBC Automated 0.0 per 100 WBC Normal 0.0 [facility] Comment on above: Performed By: #### C BC #### [address] [place] [address] [employer]: Mario Anne MD Platelet mean volume (Bld) [Entitic vol] 10.1 fL Normal 8.1-13.5 [facility] Comment on above: Performed By: #### C BC #### [facility] [address] [place] [phone] [employer]: Mario Anne MD Platelets (Bld) [#/Vol] 246 10*3/uL Normal 138-453 [facility] Comment on above: Performed By: #### C BC #### [facility] [address] [place] [phone] [employer]: Mario Anne MD RBC (Bld) [#/Vol] 3.59 10*6/uL Low 3.95-5.11 [facility] Comment on above: Performed By: #### C BC #### [facility] [address] [place] 1021283 [employer]: Mario Anne MD WBC (Bld) [#/Vol] 10.7 10*3/uL Normal 3.5-11.3 [facility] Comment on above: Performed By: #### C BC #### [facility] [address] [place] [phone] [employer]: Mario Anne MD Type + Screenon 11-24-2018 Type + Screen Sample Expiration 11/27/2018 Arm Band Number [id number] ABO/Rh(D) O POSITIVE Antibody Screen NEGATIVE Normal [facility] Comment on above: Performed By: #### T YS #### [facility] [address] [place] [phone] [employer]: Mario Anne MD US OB 14 PLUS [...] Luis Adam MD 11/24/18 Final result Normal [facility] US OB TRANSVAGINALon 07-13-2 019 US OB TRANSVAGINAL EXAMINATION: FIRST TRIMESTER [...] [place]: Not visualized Pole: Single pole [place] Rump Length: 7.11 cm Heart Rate: 145 [...] Grzegorz Vicente MD 09/30/18 Final result Normal [facility] ABO/Rhon 09-17-2018 ABO and Rh group Nom (Bld) O Positive [facility] HCG (QUANTITATIVE)on 019 Beta HCG ( test) Ql (U) Males and non females: <5 mIU/mL Females during : 3-4 weeks 9-130 mIU/mL 4-5 weeks 75-2600 mIU/mL 5-6 weeks 850-20,800 mIU/mL 6-7 weeks 4000-100,200 mIU/mL 7-12 weeks 11,500-289,000 mIU/mL 12-16 weeks 18,300-137,000 mIU/mL 16-29 weeks 1,400-53,000 mIU/mL 29-41 weeks 940-60,000 mIU/[place] [address] m[IU]/mL High [facility] Interpretation and review of laboratory results Abnormal [facility] Vital Signs Date Time Vital Sign Value Performing Clinician Facility 02-04-2024 14:24-0500 Body height 177.8 cm [facility] 02-04-2024 14:24-0500 Body mass index (BMI) [Ratio] 67 kg/m2 [facility] 02-04-2024 14:24-0500 Body temperature 99.3 [degF] [facility] 02-04-2024 14:24-0500 Body weight 211.94 kg [facility] 02-04-2024 14:24-0500 Diastolic blood pressure 83 mm[Hg] [facility] 02-04-2024 14:24-0500 Heart rate 106 /min [facility] 02-04-2024 14:24-0500 Respiratory rate 20 /min [facility] 02-04-2024 14:24-0500 SaO2% (BldA) [Mass fraction] 98 % [facility] 02-04-2024 14:24-0500 Systolic blood pressure 135 mm[Hg] [facility] 11-30-2018 08:46-0400 Body Temperature 97.9 [degF] [facility] [place] 11-30-2018 08:46-0400 BP Diastolic 85 mm[Hg] [facility] [place] 11-30-2018 08:46-0400 BP Systolic 133 mm[Hg] [facility] [place] 11-30-2018 08:46-0400 Pulse (Heart Rate) 80 /min [facility] [place] 11-30-2018 08:46-0400 Pulse Oximetry 99 % [facility] [place] 11-30-2018 08:46-0400 Respiratory Rate 18 /min [facility] [place] 11-30-2018 04:30-0400 BMI (Body Mass Index) 54.64 kg/m2 [facility] 11-30-2018 04:30-0400 Body weight 167.83 kg [facility] [place] 11-29-2018 08:35-0400 Height 175.3 cm [facility] [place] 11-28-2018 21:40-0400 Respiratory rate NOT REPORTED [facility] Comment on above: Performed By: #### VBG ####[facility] [place], [place] [address] [facility] Director: Mario Anne MD 11-28-2018 19:51-0400 Respiratory rate NOT REPORTED [facility] [place] 09-17-2018 00:04-0400 BMI (Body Mass Index) 54.93 kg/m2 [facility] 09-17-2018 00:04-0400 Body Temperature 98.29 [degF] [facility] 09-17-2018 00:04-0400 Body weight 168.74 kg Jennifer Viv[facility] 09-17-2018 00:04-0400 BP Diastolic 91 mm[Hg] [facility] 09-17-2018 00:04-0400 BP Systolic 170 mm[Hg] [facility] 09-17-2018 00:04-0400 Height 175.3 cm [facility] Viv[facility] 09-17-2018 00:04-0400 Pulse (Heart Rate) 95 /min [facility] 09-17-2018 00:04-0400 Pulse Oximetry 98 % [facility] 09-17-2018 00:04-0400 Respiratory Rate 16 /min Jennifer Viv[facility] Encounters Encounter Date Encounter Type Care Provider Facility Start: 02-04-2024 End: 02-04-2024 ambulatory [facility] Work Phone: Start: 02-04-2024 End: 02-04-2024 Patient encounter procedure [facility] Work Phone: Start: 08-08-2023 End: 08-09-2023 ambulatory Wolf Mendosa MD Facility:[facility] Start: 07-25-2023 End: 07-26-2023 ambulatory Wolf Mendosa MD Facility:[facility] Start: 07-11-2023 End: 07-12-2023 ambulatory Wolf Mendosa MD Facility:[facility] Start: 06-23-2022 ambulatory MIKE OSULLIVAN Facility:[facility] 1 Start: 06-16-2022 End: 07-15-2022 ambulatory CORNELL SPRING Facility:[facility] Start: 03-18-2022 End: 03-18-2022 ambulatory MIKE OSULLIVAN Facility:[facility] Start: 12-18-2021 End: 12-18-2021 ambulatory MIKE HOEnid Facility:[facility] Start: 12-04-2021 End: 12-05-2021 ambulatory MIKE OSULLIVAN Facility:[facility] Start: 11-25-2021 End: 11-26-2021 ambulatory MIKE OSULLIVAN Facility:[facility] Start: 09-19-2021 End: 09-19-[address] ÁNGEL BABIN Facility:[facility] Start: 07-30-2021 End: 07-30-2021 ambulatory MIKE HOY Facility:[facility] Start: 04-29-2021 End: 04-30-2021 ambulatory VADIM LOVELACE [facility] Start: 04-29-2021 End: 04-29-2021 Subsequent hospital visit by physician Mike Osullivan MD Work Phone: [facility] Comment on above: Abnormal menstrual p eriods Start: 04-08-2020 End: 04-08-2020 Subsequent hospital visit by physician Mike VincentShukri [facility] Start: 11-28-2018 End: 11-30-2018 Evaluation and management of inpatient [facility] Start: 11-28-2018 End: 11-30-2018 Evaluation and management of inpatient Art Ugarte Work Phone: [facility] Comment on above: Sepsis, due to unspe cified organism (HCC) (Primary Dx) Start: 11-24-2018 End: 11-25-2018 Evaluation and management of inpatient [facility] Start: 09-30-2018 End: 09-30-[address] [facility] Start: 09-17-2018 End: 09-17-2018 Emergency department patient visit [facility] Start: 09-17-2018 End: 09-17-2018 Emergency department patient visit [facility] Work Phone: [facility] Comment on above: Vaginal bleeding in (Primary Dx) Procedures Date Procedure Procedure Detail Performing Clinician Start: 04-29-2021 Gonadotropin chorionic quantitative Vadim Joyce [employer] Work Phone: Start: 04-08-2020 Assay of insulin [...] 11-30-2018 Blood count complete automated Marciano Jocelin Craig Work Phone: Start: 11-30-2018 Drug screen quantitative vancomycin Brenton Horton Work Phone: Start: 11-29-2018 Dup-scan xtr veins complete bilateral study MIKE OSULLIVAN Start: 11-29-2018 Culture bacterial blood aerobic w/id isolates MIKE OSULLIVAN Start: 11-29-2018 INITIATE OXYGEN THERAPY PROTOCOL MIKE OSULLIVAN Start: 11-29-2018 AMBULATE IN [place] MIKE OSULLIVAN Start: 11-29-2018 Dup-scan xtr veins complete bilateral study Marciano Monreal Jonomartha Work Phone: Start: 11-29-2018 IP CONSULT TO SPIRITUAL SERVICES MIKE OSULLIVAN Start: 11-29-2018 Assay of magnesium MIKE OSULLIVAN Start: 11-29-2018 Blood count complete auto&auto difrntl wbc MIKE OSULLIVAN Start: 11-29-2018 Blood count complete automated IMKE H OY Start: 11-29-2018 Assay of magnesium [...] HO Y Start: 11-29-2018 IP CONSULT TO INDUSTRIAL MANAGEMENT TEACHER MIKE HOY Start: 11-29-2018 NOTIFY PHYSICIAN (SPECIFY) MIKE HOEnid Start: 11-29-2018 PHARMACY TO DOSE VANCOMYCIN MIKE [...] Phone: Start: 11-28-2018 Assay of lactate MIKE HOY Start: 11-28-2018 Culture bacterial blood aerobic w/id isolates MIKE HOY Start: 11-28-2018 Radiologic exam chest single view [employer] Work Phone: Start: 11-28-2018 Ct abdomen & pelvis w/o contrast material [employer] Work Phone: Start: 11-28-2018 Ecg routine ecg w/least 12 lds w/i&r [employer] Work Phone: Start: 11-28-2018 Assay of lipase [employer] Work Phone: Start: 11-28-2018 Blood count complete auto&auto difrntl wbc Number 100 Phone: Start: 11-28-2018 Prothrombin time Number 100 Phone: Start: 11-28-2018 Thromboplastin time partial plasma/whole blood Number 100 Phone: Start: 11-28-2018 Blood gases any combination ph pco2 po2 co2 hco3 [employer] Work Phone: Start: 11-28-2018 Culture bacterial blood aerobic w/id isolates Number 100 Phone: Start: 11-28-2018 LACTATE, SEPSIS [employer] Work Phone: Start: 11-25-2018 HEMOGLOBIN AND HEMATOCRIT, BLOOD [facility] Start: 11-25-2018 Drug screen [place] Start: 11-25-2018 DISCHARGE PATIENT MIKE HO[place] Start: [...] [Units/volume] in Serum or Plasma Jennifer Fagan [employer] Work Phone: Start: 08-18-2018 C. TRACHOMATIS, EXTERNAL [...] 11-19-2020 Influenza vaccination Flu vaccine (# 1) [facility] Start: 11-20-2019 Influenza vaccination Flu vaccine (# 1) [place], [place] Start: 11-19-2018 Influenza vaccination Flu vaccine (# 1) [place], [place] Start: 2014 Cervical cancer screen Cervical canc er screen [place], [place] Start: 2014 Screening for malign ant neoplasm of cervix [facility] Start: 2012 DTaP/Tdap/Td vaccine (1 - Tdap) DTaP/Tdap/Td vaccine (1 - Tdap) [facility] Start: 2008 HIV screen HIV screen [place], [place] Start: 2008 HIV screening HIV screen [facility] Start: 2008 HPV vaccine (1 - Fem killian 3-dose series) HPV vaccine (1 - Female 3-dose series) [place], [place] Start: 2006 Varicella Vaccine (1 of 2 - 13+ 2-dose series) Varicella Vaccine (1 of 2 - 13+ 2-dose series) [place], [place] Start: 2005 Depression Screen Depression Screen [facility] Start: 1999 Pneumococcal 0-64 ye ars Vaccine (1 of 1 - PPSV23) Pneumococcal 0-64 years Vaccine (1 of 1 - PPSV23) [place], [place] Start: 1999 Pneumococcal 0-64 ye ars Vaccine (1 of 2 - PPSV23) Pneumococcal 0-64 years Vaccine (1 of 2 - PPSV23) [facility] Start: 1998 COVID-19 Vaccine (1) COVID-19 Vaccin e (1) [facility] Start: 1994 Varicella vaccine (1 of 2 - 2-dose childhood series) Varicella vaccine (1 of 2 - 2-dose childhood series) [facility] Start: 1993 Hepatitis C screening Hepatitis C sc reen [facility] Bacteria identified Cx Nom (U) Urine Culture Microbiology STAT 11/28/2018 9:39 PM EDT [place], [place] CBC CBC Lab Routine Daily until discontinued starting 11/30/2018, 1 completed [place] Comment on above: Daily until disconti nued starting 11/30/2018, 1 completed Comprehensive Metabo lic Panel w/ Reflex to MG Comprehensive Metabolic Panel w/ Reflex to MG Lab Routine Daily until discontinued starting 11/30/2018, 1 completed [place] Comment on above: Daily until disconti nued starting 11/30/2018, 1 completed Culture blood #1 Culture blood # 1 Microbiology STAT 11/28/2018 7:30 PM EDT [place] Culture Blood #2 Culture Blood # 2 Microbiology Routine 11/29/2018 8:20 AM EDT [place] EKG 12 lead EKG 12 lead ECG STAT 11/28/2018 7:50 PM EDT [place] Initiate Oxygen Ther apy Protocol Initiate Oxygen Therapy Protocol Respiratory Care Routine Daily until discontinued starting 11/29/2018 [place] Comment on above: Daily until disconti nued starting 11/29/2018 End: 12-02-2018 Vancomycin, trough Vancomycin, trough Lab Timed One Time for 1 Occurrences starting 12/02/2018 until 12/02/2018 [place] Comment on above: One Time for 1 Occur rences starting 12/02/2018 until 12/02/2018 Payers Date Payer Category Payer Private Health Insurance 2018 Unknown [id number] 2018 Unknown xxxxxxxxxxxx [id number] 2014 Unknown [id number] 1993 Unknown [id number] 2.16.8 [id number] 1993 Unknown [id number] 2.16.8 [id number] 1993 Unknown [id number] 2.16.8 [id number] 1993 Unknown [id number] 2.16.8 40.1.774364.3.579.2.175 1993 Unknown [id number] 2.16.84 0.1.491674.3.579.2.593 1993 Unknown [id number] 2.16.84 0.1.531546.3.579.2.593 1993 Unknown [id number] 2.16.84 0.1.845574.3.579.2.593 1993 Unknown [id number] 2.16.84 0.1.838475.3.579.2.593 1993 Unknown [id number] 2.16.84 0.1.698902.3.579.2.593 1993 Unknown [id number] 2.16.84 0.1.688333.3.579.2.593 1993 Unknown [id number] 2.16.84 0.1.873166.3.579.2.593 1993 Unknown [id number] 2.16.84 0.1.079826.3.579.2.593 1993 Unknown [id number] 2.16. [id number] 1993 Unknown [id number] 2.16. [id number] 1993 Unknown [id number] 2.16. [id number] 1959 Medicaid [id number] 1961 Self-pay [id number] 1959 Unknown [id number] Social History Date Type Detail Facility Start: 11-25-2018 End: 11-28-2018 Tobacco smoking status [facility] Current every day smoker [employer] Start: 11-28-2018 [facility] intake Not [facility] 1995 Sex Assigned At Not on file [facility] Start: 11-25-2018 End: 11-28-2018 Tobacco use and exposure Never used [employer] Start: 11-28-2018 Alcohol intake Ex-drinker (finding) [employer] Start: 09-17-2018 Cigarettes smoked current (pack per day) - Reported [facility] Start: 09-17-2018 History SDOH Alcohol Frequency 1 [facility] Start: 02-04-2024 Tobacco smoking stat [facility] Ex-smoker (finding) [facility] Start: 02-04-2024 Sex Female (finding) [facility] Start: 1995 Sex Assigned At Female F [facility] Evaluation note Note Date & Type Note Facility Evaluation note Diagnosis Abnormal menstrual periods documented in this encounter [employer] Work Phone: Evaluation note Note Date & Type Note Facility Evaluation note No assessment information availa ble [facility] Work Phone: Summary Purpose Family History Relationship Condition Age at Onset Recorded Date/T samuel father Atrial fibrillation Unknown Diabetes mellitus Unknown Heart disease Unknown Hypertension Unknown mother Chronic obstructive pulmonary disease Unk nown Advance Directives Documents on File Type Date Recorded 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 Advance Directives and Living Will Power of Conservation Scientist Latest Code Status on File Code Status Date Activated Date Inactivated Comments Full Code 11/28/2018 11:54 PM Full Code 11/25/2018 5:09 AM 11/25/2018 10:15 PM Full Code 11/25/2018 3:30 AM 11/25/2018 5:09 AM Documents on File Type Date Recorded 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 ACP-Advance Directive ACP-Power of Conservation Scientist Latest Code Status on File Code Status Date Activated Date Inactivated Comments Full Code 11/28/2018 11:54 PM 11/30/2018 4:25 PM Documents on File Type Date Recorded 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 * : Vaginal Bleeding (Latvian) documented in this encounter History of Present [...] F (36.6 C) Min: 97.2 F (36.2 C)Max: 98.5 F (36.9 C) 24HR BLOOD PRESSURE [...] when pt backin bed. * Argenis Daniel [facility] - 11/30/2018 7:23 AM EDT [facility] Department Pharmacy Vancomycin Consult: [...] while on vancomycin. Thank you, Argenis Daniel, Kamilah.Sukumar., 11/30/2018,7:23 AM * Shelly French LSW - 11/29/2018 4:47 PM EDT Met with Patient this p.m. She is a 23 year old single, white female, admitted with Sepsis. Patientis alert and oriented, polite and cooperative with this assessment. Friend at bedside at this time. Patient resides in [place] with her parents. She uses no DME and has no outside services or community resources currently in place. Patient is employed at [employer] but is currently off work. Patient does drive, provides for her own transportation needs. PCP is Dr. Osullivan. Patient denies having difficulty with affording her medications. Plan for Patient is home upon discharge. She is interested in pursuing Advanced Directives. Educational pamphlet provided at this time. Referral made to Pastoral Care to follow up with this request. BROADCAST METEOROLOGIST to monitor for discharge needs and assist as they arise. ULICES [place] 11/29/2018 * Florinda Muir RN - 11/29/2018 11:09 AM EDT Unsuccessful attempt x2 for new IV access. Automotive Diagnostic Technician called and will be up to attempt. [...] 5. Fluid Accumulation-Mild fluid accumulation, Extremities 6. Full Stack Software Developer Strength-Not measured Nutrition Risk Level: Moderate, Low [...] Change: , none significant per available data. [place] Body Wt: 145 lb (65.8 kg), % [place] Body 255% BMI Classification: BMI > or [...] Pertinent Labs, Weight, Patient/Family Education Contact Number: [phone] * Florinda Muir RN - 11/29/2018 8:30 AM EDT Cotton Ginner Helper called into room by lab, patient c/o pain at IV site. LUE swollen and harder to touch. IV turned off at this time and ice pack applied. * Padmaja Montano, KRISTIE - 11/29/2018 12:28 AM EDT Spoke with Dr. Horton regarding pharmacist call about antibiotics. Orders received to modify per pharmacy recommendation. * Padmaja Montano, KRISTIE - 11/29/2018 12:18 AM EDT Spoke with Dr. Pond regarding consult to PULL WORKER. She is aware of patient, and will speak with Andres DOW in the morning. * Epi Jacques, [facility] - 11/28/2018 9:25 PM EDT [...] consult. Will continue to follow. Epi Jacques [facility] 11/28/2018 9:25 PM documented in this encounter Assessments Diagnosis Sepsis, due to unspecified organism (HCC) Asthma Unspecified asthma Anxiety disorder Anxiety state, unspecified UTI (urinary tract infection) Urinary tract infection, site not specified Anemia Anemia, unspecified Cellulitis of right leg Cellulitis and abscess of leg, except foot Tobacco abuse Tobacco use disorder Diagnosis Vaginal bleeding in - Primary Chief Complaint and Reason for Visit Chief Complaint Admit Date fever, sore throat, cold February 04, 2024 1:29pm Additional Source Comments INFORMATION SOURCE (unrecogn ized section and content) DATE CREATED AUTHOR 11/17/2018 [facility] DATE CREATED AUTHOR AUTHOR'S ORGANIZ ATION 12/04/2018 [facility] DATE CREATED AUTHOR AUTHOR'S ORGANIZ ATION 04/30/2021 [facility] DATE CREATED AUTHOR AUTHOR'S ORGANIZ ATION 05/14/2022 [facility] dical Specialist DATE CREATED AUTHOR AUTHOR'S ORGANIZ ATION 07/21/2022 [facility] DATE CREATED AUTHOR AUTHOR'S ORGANIZ ATION 08/14/2023 [facility] Reason for Visit (unrecogniz ed section and content) Reason Comments Fatigue BEGAN 1730 TODAY, po st x3 days, baby born at 22 weeks, Chills Fever Status Reason Specialty Diagnoses / Procedures Referre d By Contact Referred To Contact Diagnoses Sepsis (HCC) Sepsis (HCC) Brenton Horton MD [address] [place] [address], [place] [address] [facility] Reason Comments Vaginal Bleeding Zo Bee RN - 09/17/2018 12:03 AM EDT ED Notes (unrecognized secti on and content) Bleeding started within the last hour, pt is 11weeks and 5 days. Pt states bleeding is only when she wipes after using the rest room. documented in this encounter Care Teams (unrecognized sec tion and content) Sword Swallower Relationship Specialty Start Date End Date Mike Osullivan MD [id number] [phone] PCP - General Family Medicine 11/24/18 Team Status: Active Member Role Status Dates Mike Osullivan MD Primary Care Provider Active Team Status: Inactive Member Role Status Dates Mike Osullivan MD Primary Care Provider Active Start: February 04, 2024 End: February 04, 2024 Marina Green APRN Attending Provider Active Start: February 04, 2024 End: February 04, 2024 Goals (unrecognized section and content) Goals may be documented in a n alternate section FOR RECORDS PERTAINING TO PATIENTS WHO ARE [...] BE BASED ON THE PRIMARY CLINICAL RECORDS. [facility] [employer] [facility]. provides no warranty or guarantee of the accuracy or completeness of information in this document.
== END 2024-05-28 21:04 | disposition home or self-care (01) ==
LOC: SLEEP 21:03
PROVIDERS: PCP Family Medicine; Visit Provider Family Medicine
DX: G47.33 Obstructive sleep apnea (adult) (pediatric) (principal)
CPT/HCPCS: 95810

== ENCOUNTER 2024-06-18 20:57 | Outpatient (OUT) | payer OTHER, SELFPAY ==
--- OUTSIDE RECORDS SUMMARY | 2024-06-18 21:01 | XMS_ITS | CCD ---
Author Organization [facility] Care Team Providers Care Helper Coordinator Name Role Phone JENNIFER VIVAR Attending Unavailable HOY, MIKE Primary Care Unavailable Ravin, Mike M Primary Care Provider [phone] MIKE OSULLIVAN M Primary Care Unavailable JENNIFER HEDRICK Admitting Unavailable JENNIFER HEDRICK Attending Unavailable RAVIN MIKE M Primary Care Unavailable BRENTON HORTON Admitting Unavailable BRENTON HORTON Attending Unavailable LARISSA SAMPSON Consulting Unavail able ABEBE STEPHENS Admitting Unavailable KAT, ABEBE Attending Unavailable Mike Osullivan M Primary Care Provider [phone] Mike Osullivan Primary Care Provider Mike Osullivan MD Primary Care Provider VADIM [...] ÁNGEL BABIN Admitting Stiven BABIN, DR ÁNGEL aGrcia Attending Unavailfelicity BABIN, DR ÁNGEL Garcia Consulting UnavailMIKE Reynolds Primary Care Unavailable ADALID PEREZ Consulting Unavailable Deondre SHI, Wolf Martinez Attending Unavailable Deondre SHI, Wolf Martinez Attending Unavailable Deondre SHI, Wolf Martinez Attending Unavailable MIKE OSULLIVAN Referring Unavailable MIKE OSULLIVAN Primary Care Unavailable Allergies Allergy Classification Reported Allergen(s) Allergy Type Date of Onset Reaction(s) Facility (7 sources) docosanol; Translations: [Unknown] Drug Allergy 9 [facility] Repository (1 source) docosanol Drug Allergy [facility] Repository (1 source) Sulfamethoxazole / Trimethoprim Drug Allergy 0 [facility] Repository (1 source) Sulfamethoxazole Drug Allergy 4 [facility] (1 source) Trimethoprim Drug Allergy 4 [facility] (1 source) Sulfamethoxazole / Trimethoprim; Translations: [SULFAMETHOXAZOLE-TR IMETHOPRIM] Drug Allergy 5 [facility] Repository Medications Current Medications Medication Drug Class(es) Dates Sig (Normalized) Sig (Original) acetaminophen 325 mg oral tablet (2 sources) Start: 11-28-2018 End: 11-28-2018 650 mg, Oral, EVERY 4 HOURS PRN, Fever, For temp greater than 100.5 F (38 C), Starting Tue11/28/18 at 2353 Maximum dose of acetaminophen is [...] every week vitamin D (ERGOCALCIFEROL) 1.25 MG (32700 UT) CAPS capsule Take 1 capsule by [...] Starting Tue11/28/18 at 2353 polyethylene glycol 3350 [id number] mg powder for oral solution (1 source) [...] [UNSPECIFIED DIASTOLIC HEART FAILURE] Onset: 12-02-2021 Chronic E Codes: Natural/environment (1 source) Bitten by dog, initial encounter; Translations: [Bitten by dog, initial encounter] Onset: 06-07-2024 Episodic Early or threatened labor (3 sources) Premature [...] COUGH, UNSPECIFIED; Translations: [COUGH, UNSPECIFIED] Onset: 03-20-2022 Unclassified (1 source) Animal Bite Onset: 06-07-2024 Unclassified (1 source) Dog Bite Right Hand Onset: 06-07-2024 Viral infection (1 source) COVID-19; Translations: [COVID-19] [...] Name Value Interpretation Reference Range Facility XR HAND RT MIN 3 VWSon 06-07 XR HAND RT MIN 3 VWS XR HAND RT MIN 3 VW S EXAM: XR HAND RT MIN 3 VWS CLINICAL INFORMATION: dog bite 3rd digit. COMPARISON: None. FINDINGS: There is no evidence for an acute displaced fracture or malalignment of the hand. The joint spaces are relatively well-preserved. There are no radiopaque foreign bodies. IMPRESSION: 1. No evidence for an acute displaced fracture or malalignment of the hand. 2. No radiopaque foreign bodies. Finalized by Mich Thomas MD on 06/07/2024 6:[address] [facility] BI MAMMOGRAM DIAGNOSTIC AMEYA SYNTHESIS BILATERALon 05-30-2024 BI MAMMOGRAM DIAGNOSTIC TOMOSYNTHESIS BILATERAL This is a summary report. The complete report is available in the patient's medical record. If you cannot access the medical record, please contact the sending organization for a detailed fax or copy. EXAMINATION: BI MAMMOGRAM DIAGNOSTIC TOMOSYNTHESIS BILATERAL CLINICAL HISTORY: Lump in Breast of Female TECHNIQUE: Diagnostic digital mammogram study of both breasts was performed with 2D and 3D tomosynthesis imaging. Study was compared to the right breast ultrasound exam dated 05/30/2024. FINDINGS: There is no evidence of dominant spiculated mass, grouped microcalcifications or skin thickening which would be suggestive of malignancy. A single benign-appearing calcification is noted on the right. In the area of recently noted lump laterally in the right breast no obvious focal abnormality can be identified. Ultrasound study of the right breast was grossly unremarkable. IMPRESSION: No specific evidence of malignancy seen in either breast. BIRADS 2 - Benign Findings DENSITY: The breasts are almost entirely fatty. FOLLOW-UP: Routine Screening Mammogram Board Certified Radiologists. Accredited by the ACR and FDA. MAMMOGRAPHY IS VERY IMPORTANT TO YOUR HEALTH. THE [place] [employer] GUIDELINES RECOMMEND THAT WOMEN 40 YEARS OF AGE AND OLDER SHOULD HAVE A MAMMOGRAM EVERY YEAR. A REMINDER LETTER WILL BE SENT AT THE APPROPRIATE TIME. ELECTRONICALLY SIGNED BY: Cuco Parisi M.D. Normal Not Available BI US BREAST LIMITED RIGHTon 05-30-2024 BI US BREAST LIMITED RIGHT This is a summary report. The complete report is available in the patient's medical record. If you cannot access the medical record, please contact the sending organization for a detailed fax or copy. Examination: BI US BREAST LIMITED RIGHT Reason for Study: Breast lump Comparison: Diagnostic mammogram study of the breasts dated 05/30/2024. Technique: Right breast ultrasound study was performed from the 6:00 to the 12 o'clock position to include area of recently noted lump. Findings: No obvious solid or cystic mass. No obvious solid vascular mass to suggest neoplasm. No obvious abnormal calcifications or vascularity. No obvious ductal dilatation. IMPRESSION: Impression: Right breast ultrasound study is grossly unremarkable. No convincing evidence of neoplasm. BI-RADS 2 ELECTRONICALLY SIGNED BY: Cuco Parisi M.D. Normal Not Available XR Chest 2 Views*on 05-13-19 XR Chest [...] by Hitesh Norman on 05/13/2022 1439 Normal [facility] Specialist Covid-19 PCR (CVD[facility])on 02-19 SARS-CoV-2 (COVID-19) RNA CLIFF+probe Ql (Unsp spec) Detected Critically abnormal NOT DETECTED [facility] Comment on above: Result Comment: This test is not yet approved or cleared by the [place] FDA. When there are no FDA-approved or cleared tests available, and other criteria are met, FDA can make tests available under an emergency access mechanism called an Emergency Use Authorization (EUA). The EUA for this test is supported by the [place] of Health and Human Service's declaration that [...] used). Performed By: #### C VDTB #### [facility] [address] [place] [address] Dr. Lilli Soriano INFLUENZA A AND B AGon 03-18 [facility] SEE BELOW Normal [facility] Comment on above: Result Comment: Nega tive for Flu A protein angiten. Infection due to Flu A cannot be ruled out. Flu A angiten in the sample may be below the detection limit of the test. Performed By: #### I NFLUAB #### [facility] [address] [place] [address] Dr. Lilli Soriano [facility] SEE BELOW Normal [facility] Comment on above: Result Comment: Nega tive for Flu B protein antigen. Infection due to Flu B cannot be ruled out. Flu B antigen in the sample may be below the detection limit of the test. Performed By: #### I NFLUAB #### [facility] [address] [place] [address] Dr. Lilli Soriano INFLUENZA A AG Negative Normal NEGATIVE SEE COMMENT [facility] Comment on above: Performed By: #### I NFLUAB #### [facility] [address] [place] [address] Dr. Lilli Soriano INFLUENZA B AG Negative Normal NEGATIVE SEE COMMENT [facility] Comment on above: Performed By: #### I NFLUAB #### [facility] [address] [place] [address] Dr. Lilli Soriano US Pelvic, Transvaginalon US [...] by Burton Mcdaniel on 12/24/2021 0958 Normal [facility] Specialist Covid-19 PCR ([facility])on 11-21 SARS-CoV-2 (COVID-19) RNA CLIFF+probe Ql (Unsp spec) Not detected Normal NOT DETECTED [facility] Comment on above: Result Comment: This test is not yet approved or cleared by the [place] FDA. When there are no FDA-approved or cleared tests available, and other criteria are met, FDA can make tests available under an emergency access mechanism called an Emergency Use Authorization (EUA). The EUA for this test is supported by the [employer] of Health and Human Service's (HHS's) declaration [...] consistent with SARS-CoV-2. Performed By: #### C [facility] #### [facility] [address] [place], [place] [id number] Dr. Lilli Soriano VC VENOUS REFLUX GRACIELA LMTon 0 12-04-2021 VC VENOUS REFLUX GRACIELA LMT Patient: DEION CUMMINGS Exam Date: 12/04/2021 : 1995 Gender:F Ordering : DR MIKE OSULLIVAN . Admission #: [id number] Family : Order #: [id number] CLICK HERE TO VIEW EXAM RADIOLOGY REPORT [...] chronic thrombus visualized. 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 Dist/med [...] MD on 12/04/2021 at 09:37 Normal [facility] INSULINon 11-26-2021 Insulin 21.8 uIU/mL Normal 2.6-24.[address] [facility] Comment on above: Performed By: #### I NSULIN #### [facility] [address] [place] [address] Dr. Lilli Soriano T4, T3U, FTI LABCORPon 11-26 Free Thyroxine Index 2.2 Normal 1.2-4.9 [facility] Comment on above: Performed By: #### B NURSE SPECIALIST, TSH, LIPID, CMP #### [facility] [address] [place] [address] Dr. Lilli Soriano T3 Uptake 30 % Normal 24-[address] [facility] Comment on above: Performed By: #### B NURSE SPECIALIST, TSH, LIPID, CMP #### [facility] [address] [place] [address] Dr. Lilli Soriano T4 [Mass/Vol] 7.3 ug/dL Normal 4.5-12.0 [facility] Comment on above: Performed By: #### B NURSE SPECIALIST, TSH, LIPID, CMP #### [facility] [address] [place] [address] Dr. Lilli Soriano BNPon 11-25-2021 Natriuretic peptide B (Bld) [Mass/Vol] 35.0 pg/mL Normal <=450.[address] [facility] Comment on above: Performed By: #### B NURSE SPECIALIST, TSH, LIPID, CMP #### [facility] [address] [place] [address] Dr. Lilli Soriano CBC AUTO DIFFon 11-25-2021 BASO # 0.0 103/ul Normal 0.0-0.1 [facility] Comment on above: Performed By: #### B NURSE SPECIALIST, TSH, LIPID, CMP #### [facility] [address] [place] [address] Dr. Lilli Soriano Basophils/100 WBC (Bld) 0.5 % Normal 0.2-2.0 [facility] Comment on above: Performed By: #### B NURSE SPECIALIST, TSH, LIPID, CMP #### [facility] [address] [place] [address] Dr. Lilli Soriano EO # 0.1 103/ul Normal 0.0-0.7 [facility] Comment on above: Performed By: #### B NURSE SPECIALIST, TSH, LIPID, CMP #### [facility] [address] [place] [address] Dr. Lilli Soriano Eosinophils/100 WBC (Bld) 1.7 % Normal 0.9-7.0 [facility] Comment on above: Performed By: #### B NURSE SPECIALIST, TSH, LIPID, CMP #### [facility] [address] [place] [address] Dr. Lilli Soriano Erythrocyte distribution width (RBC) [Ratio] 13.6 % Normal 11.0-15.0 [facility] Comment on above: Performed By: #### B NURSE SPECIALIST, TSH, LIPID, CMP #### [facility] [address] [place] [address] Dr. Llili Soriano Hematocrit (Bld) [Volume fraction] 42.6 % Normal 36.0-48.0 [facility] Comment on above: Performed By: #### B NURSE SPECIALIST, TSH, LIPID, CMP #### [facility] [address] [place] [address] Dr. Lilli Soriano Hemoglobin (Bld) [Mass/Vol] 13.6 g/dL Normal 12.0-16.0 [facility] Comment on above: Performed By: #### B NURSE SPECIALIST, TSH, LIPID, CMP #### [facility] [address] [place] [address] Dr. Lilli Soriano IG # 0.04 10e3/ul Critically high 0.00-0.03 [facility] Comment on above: Performed By: #### B NURSE SPECIALIST, TSH, LIPID, CMP #### [facility] [address] [place] [address] Dr. Lilli Soriano IG % 0.5 % Normal 0.0-0.5 [facility] Comment on above: Performed By: #### B NURSE SPECIALIST, TSH, LIPID, CMP #### [facility] [address] [place] [address] Dr. Lilli Soriano LYMPH # 1.7 103/ul Normal 1.2-3.[address] [facility] Comment on above: Performed By: #### B NURSE SPECIALIST, TSH, LIPID, CMP #### [facility] [address] [place] [address] Dr. Lilli Soriano Lymphocytes/100 WBC (Bld) 19.9 % Critically low 20.5-60.0 [facility] Comment on above: Performed By: #### B NURSE SPECIALIST, TSH, LIPID, CMP #### [facility] [address] [place] [address] Dr. Lilli Soriano MANUAL DIFF REQ NO Normal [facility] Comment on above: Performed By: #### B NURSE SPECIALIST, TSH, LIPID, CMP #### [facility] [address] [place] [address] Dr. Lilli Soriano MCH (RBC) [Entitic mass] 28.0 pg Normal 26.7-34.0 [facility] Comment on above: Performed By: #### B NURSE SPECIALIST, TSH, LIPID, CMP #### [facility] [address] [place] [address] Dr. Lilli Soriano MCHC (RBC) [Mass/Vol] 31.9 g/dL Normal 29.9-35.2 [facility] Comment on above: Performed By: #### B NURSE SPECIALIST, TSH, LIPID, CMP #### [facility] [address] [place] [address] Dr. Lilli Soriano MCV (RBC) [Entitic vol] 87.7 fL Normal 81.0-99.0 [facility] Comment on above: Performed By: #### B NURSE SPECIALIST, TSH, LIPID, CMP #### [facility] [address] [place] [address] Dr. Lilli Soriano MONO # 0.5 103/ul Normal 0.3-0.8 [facility] Comment on above: Performed By: #### B NURSE SPECIALIST, TSH, LIPID, CMP #### [facility] [address] [place] [address] Dr. Lilli Soriano Monocytes/100 WBC (Bld) 5.9 % Normal 1.7-12.[address] [facility] Comment on above: Performed By: #### B NURSE SPECIALIST, TSH, LIPID, CMP #### [facility] [address] [address] [address] Lilli Soriano NEUT # 6.1 103/ul Normal 1.4-6.[address] [facility] Comment on above: Performed By: #### B NURSE SPECIALIST, TSH, LIPID, CMP #### [facility] [address] [place] [address] Dr. Lilli Soriano Neutrophils/100 WBC (Bld) 71.5 % Normal 43.0-75.[address] [facility] Comment on above: Performed By: #### B NURSE SPECIALIST, TSH, LIPID, CMP #### [facility] [address] [place] [address] Dr. Lilli Soriano Platelet mean volume (Bld) [Entitic vol] 9.7 fL Normal 9.5-13.[address] [facility] Comment on above: Performed By: #### B NURSE SPECIALIST, TSH, LIPID, CMP #### [facility] [address] [place] [address] Dr. Lilli Soriano PLT 289 103/ul Normal 150-[address] [facility] Comment on above: Performed By: #### B NURSE SPECIALIST, TSH, LIPID, CMP #### [facility] [address] [place] [address] Dr. Lilli Soriano RBC 4.86 106/ul Normal 4.20-5.[address] [facility] Comment on above: Performed By: #### B NURSE SPECIALIST, TSH, LIPID, CMP #### [facility] [address] [place] [address] Dr. Lilli Soriano WBC 8.5 103/ul Normal 4.0-11.[address] [facility] Comment on above: Performed By: #### B NURSE SPECIALIST, TSH, LIPID, CMP #### [facility] [address] [place] [address] Dr. Lilli Soriano CULTURE URINEon 11-25-2021 CULTURE URINE Culture Observations : LIGHT GROWTH OF MIXED GENITAL CHICA. NO POTENTIAL PATHOGENS SEEN. Normal [facility] Comment on above: Performed By: #### B NURSE SPECIALIST, TSH, LIPID, CMP #### [facility] [address] [address] [address] Lilli Soriano GLYCOHEMOGLOBIN A1Con 2021 ADA RECOMMENDATION SEE BELOW Normal [facility] Comment on above: Result Comment: ADA RECOMMENDED LIMIT 4.0 - 6.0 ADA THERAPEUTIC TARGET < 7.0 ACTION SUGGESTED > 7.0 Performed By: #### B NURSE SPECIALIST, TSH, LIPID, CMP #### [facility] [address] [address] [address] Lilli Soriano Glucose [Mass/Vol] 108 mg/dL Normal [facility] Comment on above: Performed By: #### B NURSE SPECIALIST, TSH, LIPID, CMP #### [facility] [address] [place] [address] Dr. Lilli Soriano HbA1c (Bld) [Mass fraction] 5.4 % Normal 4.5-6.2 [facility] Comment on above: Performed By: #### B NURSE SPECIALIST, TSH, LIPID, CMP #### [facility] [address] [place] [address] Dr. Lilli Soriano IRONon 11-25-2021 Iron [Mass/Vol] 47.0 ug/dL Critically low 50.0-170.0 [facility] Comment on above: Performed By: #### B NURSE SPECIALIST, TSH, LIPID, CMP #### [facility] [address] [place] [address] Dr. Lilli Soriano LIPID PROFILEon 11-25-2021 CHOL-HDL RATIO NORM SEE BELOW Normal [facility] Comment on above: Result Comment: 3.3 - 4.4 LOW RISK 4.4 - 7.1 AVERAGE RISK 7.1 - 11.0 MODERATE RISK >11.0 HIGH RISK Performed By: #### B NURSE SPECIALIST, TSH, LIPID, CMP #### [facility] [address] [place] [address] Dr. Lilli Soriano Cholesterol [Mass/Vol] 153 mg/dL Normal <=200 [facility] Comment on above: Performed By: #### B NURSE SPECIALIST, TSH, LIPID, CMP #### [facility] [address] [address] [address] Lilli Soriano Cholesterol in HDL [Mass/Vol] 56 mg/dL Normal 40-60 [facility] Comment on above: Performed By: #### B NURSE SPECIALIST, TSH, LIPID, CMP #### [facility] [address] [address] [address] Lilli Soriano Cholesterol in LDL [Mass/Vol] 88.4 mg/dL Normal [facility] Comment on above: Performed By: #### B NURSE SPECIALIST, TSH, LIPID, CMP #### [facility] [address] [address] [address] Lilli Soriano Cholesterol.total/Cho lesterol in HDL [Mass ratio] 2.7 {ratio} Normal [facility] Comment on above: Performed By: #### B NURSE SPECIALIST, TSH, LIPID, CMP #### [facility] [address] [place] [address] Dr. Lilli Soriano HDL NORMAL > or = 60 mg/dl - LO W CARDIOVASCULAR RISK <40 mg/dl - HIGH CARDIOVASCULAR RISK Normal [facility] Comment on above: Performed By: #### B NURSE SPECIALIST, TSH, LIPID, CMP #### [facility] [address] [address] [address] Lilli Soriano LDL CALC NORMAL SEE BELOW Normal [facility] Comment on above: Result Comment: <100 mg/dl OPTIMAL 100 - 129 mg/dl NEAR OR ABOVE OPTIMAL 130 - 159 mg/dl BORDERLINE HIGH 160 - 189 mg/dl HIGH >190 mg/dl VERY HIGH Performed By: #### B NURSE SPECIALIST, TSH, LIPID, CMP #### [facility] [address] [address] [address] Lilli Soriano Triglyceride [Mass/Vol] 43 mg/dL Normal <=[address] [facility] Comment on above: Performed By: #### B NURSE SPECIALIST, TSH, LIPID, CMP #### [facility] [address] [address] [address] Lilli Soriano VLDL CALC 8.6 mg/dL Normal [facility] Comment on above: Performed By: #### B NURSE SPECIALIST, TSH, LIPID, CMP #### [facility] [address] [place] [address] Dr. Lilli Soriano PROF 14(COMP METB)on 022 Albumin [Mass/Vol] 3.7 g/dL Normal 3.4-5.0 [facility] Comment on above: Performed By: #### B NURSE SPECIALIST, TSH, LIPID, CMP #### [facility] [address] [address] [address] Lilli Soriano Albumin/Globulin [Mass ratio] 1.0 {ratio} Normal [facility] Comment on above: Performed By: #### B NURSE SPECIALIST, TSH, LIPID, CMP #### [facility] [address] [address] [address] Lilli Soriano ALP [Catalytic activity/Vol] 58 U/L Normal 46-116 [facility] Comment on above: Performed By: #### B NURSE SPECIALIST, TSH, LIPID, CMP #### [facility] [address] [place] [address] Dr. Lilli Soriano ALT [Catalytic activity/Vol] 30 U/L Normal 14-59 [facility] Comment on above: Performed By: #### B NURSE SPECIALIST, TSH, LIPID, CMP #### [facility] [address] [place] [address] Dr. Lilli Soriano Anion gap [Moles/Vol] 9.9 mmol/L Normal [facility] Comment on above: Performed By: #### B NURSE SPECIALIST, TSH, LIPID, CMP #### [facility] [address] [place] [address] Dr. Lilli Soriano AST [Catalytic activity/Vol] 10 U/L Critically low 15-37 [facility] Comment on above: Performed By: #### B NURSE SPECIALIST, TSH, LIPID, CMP #### [facility] [address] [place] [address] Dr. Lilli Soriano Bilirubin [Mass/Vol] 0.4 mg/dL Normal 0.2-1.0 [facility] Comment on above: Performed By: #### B NURSE SPECIALIST, TSH, LIPID, CMP #### [facility] [address] [place] [address] Dr. Lilli Soriano Calcium [Mass/Vol] 8.8 mg/dL Normal 8.5-10.1 [facility] Comment on above: Performed By: #### B NURSE SPECIALIST, TSH, LIPID, CMP #### [facility] [address] [address] [address] Lilli Soriano Chloride [Moles/Vol] 102 mmol/L Normal 98-[address] [facility] Comment on above: Performed By: #### B NURSE SPECIALIST, TSH, LIPID, CMP #### [facility] [address] [place] [address] Dr. Lilli Soriano CO2 [Moles/Vol] 30.1 mmol/L Normal 21.0-32.0 [facility] Comment on above: Performed By: #### B NURSE SPECIALIST, TSH, LIPID, CMP #### [facility] [address] [place] [address] Dr. Lilli Soriano Creatinine [Mass/Vol] 0.90 mg/dL Normal 0.55-1.02 [facility] Comment on above: Performed By: #### B NURSE SPECIALIST, TSH, LIPID, CMP #### [facility] 01 [place] [address] Dr. Lilli Soriano EGFR-AF GRENADIAN >60 Normal >=60 The [facility] Comment on above: Performed By: #### B NURSE SPECIALIST, TSH, LIPID, CMP #### [facility] [address] [place] [address] Dr. Lilli Soriano EGFR-NON AF GRENADIAN >60 Normal >=[address] [facility] Comment on above: Performed By: #### B NURSE SPECIALIST, TSH, LIPID, CMP #### [facility] [address] [place] [address] Dr. Lilli Sroiano Globulin (S) [Mass/Vol] 3.7 g/dL Normal The [facility] Comment on above: Performed By: #### B NURSE SPECIALIST, TSH, LIPID, CMP #### [facility] [address] [place] [address] Dr. Lilli Soriano Glucose [Mass/Vol] 96 mg/dL Normal 74-106 The [facility] Comment on above: Performed By: #### B NURSE SPECIALIST, TSH, LIPID, CMP #### [facility] [address] [place] [address] Dr. Lilli Soriano Potassium [Moles/Vol] 4.0 mmol/L Normal 3.5-5.[address] [facility] Comment on above: Performed By: #### B NURSE SPECIALIST, TSH, LIPID, CMP #### [facility] [address] [place] [address] Dr. Lilli Soriano Protein [Mass/Vol] 7.4 g/dL Normal 6.4-8.2 [facility] Comment on above: Performed By: #### B NURSE SPECIALIST, TSH, LIPID, CMP #### [facility] [address] [place] [address] Dr. Lilli Soriano Sodium [Moles/Vol] 138 mmol/L Normal 136-145 [facility] Comment on above: Performed By: #### B NURSE SPECIALIST, TSH, LIPID, CMP #### [facility] [address] [place] [address] Dr. Lilli Soriano Urea nitrogen [Mass/Vol] 12.0 mg/dL Normal 7.0-18.0 [facility] Comment on above: Performed By: #### B NURSE SPECIALIST, TSH, LIPID, CMP #### [facility] [address] [place] [address] Dr. Lilli Soriano Urea nitrogen/Creatinine [Mass ratio] 13.3 mg/mg Normal The [facility] Comment on above: Performed By: #### B NURSE SPECIALIST, TSH, LIPID, CMP #### [facility] [address] [place] [address] Dr. Lilli Soriano TSHon 11-25-2021 TSH 1.196 uIU/mL Normal 0.358-3.740 [facility] Comment on above: Performed By: #### B NURSE SPECIALIST, TSH, LIPID, CMP #### [facility] [address] [place] [address] Dr. Lilli Soriano UA RANDOM W/MICROSCOPICon BACTERIA TRACE Abnormal NONE SEEN The [facility] Comment on above: Performed By: #### B NURSE SPECIALIST, TSH, LIPID, CMP #### [facility] [address] [place] [address] Dr. Lilli Soriano Bilirubin Ql (U) Negative Normal NEGATIVE The [facility] Comment on above: Performed By: #### B NURSE SPECIALIST, TSH, LIPID, CMP #### [facility] [address] [place] [address] Dr. Lilli Soriano CAST NONE SEEN Normal NONE SEEN The [facility] Comment on above: Performed By: #### B NURSE SPECIALIST, TSH, LIPID, CMP #### [facility] [address] [place] [address] Dr. Lilli Soriano Clarity (U) CLEAR Normal CLEAR The [facility] Comment on above: Performed By: #### B NURSE SPECIALIST, TSH, LIPID, CMP #### [facility] [address] [place] [address] Dr. Lilli Soriano Color (U) LT. YELLOW Normal YELLOW The [facility] Comment on above: Performed By: #### B NURSE SPECIALIST, TSH, LIPID, CMP #### [facility] [address] [place] [address] Dr. Lilli Soriano Crystals LM Nom (Urine sed) NONE SEEN Normal NONE SEEN [facility] Comment on above: Performed By: #### B NURSE SPECIALIST, TSH, LIPID, CMP #### [facility] [address] [place] [address] Dr. Lilli Soriano Epithelial cells LM Ql (Urine sed) MODERATE Abnormal NONE SEEN /RARE The [facility] Comment on above: Performed By: #### B NURSE SPECIALIST, TSH, LIPID, CMP #### [facility] [address] [place] [address] Dr. Lilli Soriano Glucose Ql (U) Negative Normal NEGATIVE The [facility] Comment on above: Performed By: #### B NURSE SPECIALIST, TSH, LIPID, CMP #### [facility] [address] [place] [address] Dr. Lilli Soriano Hemoglobin Ql (U) Negative Normal NEGATIVE The [facility] Comment on above: Performed By: #### B NURSE SPECIALIST, TSH, LIPID, CMP #### [facility] [address] [place] [address] Dr. Lilli Soriano Ketones Ql (U) Negative Normal NEGATIVE The [facility] Comment on above: Performed By: #### B NURSE SPECIALIST, TSH, LIPID, CMP #### [facility] [address] [place] [address] Dr. Lilli Soriano LEUKOCYTES Negative Normal NEGATIVE [facility] Comment on above: Performed By: #### B NURSE SPECIALIST, TSH, LIPID, CMP #### [facility] [address] [place] [address] Dr. Lilli Soriano MUCOUS NONE SEEN Normal NONE SEEN [facility] Comment on above: Performed By: #### B NURSE SPECIALIST, TSH, LIPID, CMP #### [facility] [address] [address] [address] Lilli Soriano Nitrite Ql (U) Negative Normal NEGATIVE [facility] Comment on above: Performed By: #### B NURSE SPECIALIST, TSH, LIPID, CMP #### [facility] [address] [place] [address] Dr. Lilli Soriano pH (U) 7.0 [pH] Normal 5-9 [facility] Comment on above: Performed By: #### B NURSE SPECIALIST, TSH, LIPID, CMP #### [facility] [address] [place] [address] Dr. Lilli Soriano RBC 0-2 Normal 0-2 [facility] Comment on above: Performed By: #### B NURSE SPECIALIST, TSH, LIPID, CMP #### [facility] [address] [place] [address] Dr. Lilli Soriano SPEC GRAVITY 1.010 Normal 1.005-<=1.02 5 [facility] Comment on above: Performed By: #### B NURSE SPECIALIST, TSH, LIPID, CMP #### [facility] [address] [place] [address] Dr. Lilli Soriano UA PROTEIN Negative Normal NEGATIVE/ TRACE The [facility] Comment on above: Performed By: #### B NURSE SPECIALIST, TSH, LIPID, CMP #### [facility] [address] [place] [address] Dr. Lilli Soriano Urobilinogen Qn (U) 0.2 {Macho'U}/dL Normal 0.2 - 1. 0 [facility] Comment on above: Performed By: #### B NURSE SPECIALIST, TSH, LIPID, CMP #### [facility] [address] [place] [address] Dr. Lilli Soriano WBC NONE SEEN Normal NONE SEEN [facility] Comment on above: Performed By: #### B NURSE SPECIALIST, TSH, LIPID, CMP #### [facility] [address], [place] [address] Dr. Lilli Soriano URon 09-19-2021 , QUAL Negative Normal NEGATIVE [facility] Comment on above: Performed By: #### B NURSE SPECIALIST, TSH, LIPID, CMP #### [facility] [address], [place] [address] Dr. Lilli Soriano XR LSPINE 2_3 VIEWSon [...] space at L5-S1. Electronically authenticated by: ADALID RIVERAH Date: 2021-09-19 12:59 Normal [address] [facility]on [facility]-19 SARS-CoV-2 (COVID-19) RNA CLIFF+probe Ql (Unsp spec) Not detected Normal NOT DETECTED The [facility] Comment on above: Result Comment: This test is not yet approved or cleared by the [place] FDA. When there are no FDA-approved or cleared tests available, and other criteria are met, FDA can make tests available under an emergency access mechanism called an Emergency Use Authorization (EUA). The EUA for this test is supported by the [place] of Health and Human Service's (HHS's) declaration [...] SARS-CoV-2. Performed By: #### C VDTB #### [facility] [address] [place] [address] Dr. Lilli Soriano INFLUENZA A AND B AGon 07-30 [facility] SEE BELOW Normal [facility] Comment on above: Result Comment: Nega tive for Flu A protein angiten. Infection due to Flu A cannot be ruled out. Flu A angiten in the sample may be below the detection limit of the test. Performed By: #### I NFLUAB #### [facility] [address] [place] [address] Dr. Lilli Sor[facility] BELOW Normal [facility] Comment on above: Result Comment: Nega tive for Flu B protein antigen. Infection due to Flu B cannot be ruled out. Flu B antigen in the sample may be below the detection limit of the test. Performed By: #### I NFLUAB #### [facility] [address] [place] [address] Dr. Lilli Soriano INFLUENZA A AG Negative Normal NEGATIVE SEE COMMENT [facility] Comment on above: Performed By: #### I NFLUAB #### [facility] [address] [place] [address] Dr. Lilli Soriano INFLUENZA B AG Negative Normal NEGATIVE SEE COMMENT [facility] Comment on above: Performed By: #### I NFLUAB #### [facility] [address] [place] [address] Dr. Lilli Soriano INTERNAL CONTROLS Within Normal Limits Normal Wi thin Normal Limits [facility] Comment on above: Performed By: #### I NFLUAB #### [facility] [address] [place] [address] Dr. Lilli Soriano HCG, Quanton 04-29-2021 HCG, Quant <1 Normal <5 [facility] Comment on above: Result Comment: Non-preg premeno <=5 Postmeno <=8 Male <=3 If HCG results do not concur with clinical observations, additional testing to confirm results is recommended. Elevated results not associated with may be found in patients with other diseases such as tumors of the germ cells (testis, ovaries, etc.), bladder, pancreas, stomach, lungs, and liver. Performed By: #### B HCG #### [facility] [address] [place] [address] Histology Teacher: Geo Mar MD hCG, Quantitative, on 04-29-2021 hCG Quant <1 <5 IU/L [facility] Comment on above: Non-preg premeno <=5 Postmeno <=8 Male <=3 If HCG results do not concur with clinical observations, additional testing to confirm results is recommended. Elevated results not associated with may be found in patients with other diseases such as tumors of the germ cells (testis, ovaries, etc.), bladder, pancreas, stomach, lungs, and liver. [facility] CBC Auto Differentialon 03-21 Basophils (Bld) [#/Vol] 0.04 10*3/uL [place] Basophils/100 WBC (Bld) 1 % 0 - 2 % [place] Differential Type NOT REPORTED [place] Eosinophils (Bld) [#/Vol] 0.15 10*3/uL [place] Eosinophils/100 WBC (Bld) 2 % 1 - 4 % [place] Erythrocyte distribution width (RBC) [Ratio] 12.9 % 11.8 - 14.4 % [place] Hematocrit (Bld) [Volume fraction] 44.6 % 36.3 - 47.1 % [place] Hemoglobin (Bld) [Mass/Vol] 14.6 g/dL 11.9 - 15.1 g/dL [place] Immature granulocytes (Bld) [#/Vol] 0.05 10*3/uL [place] Immature granulocytes (Bld) [#/Vol] 1 % High 0 [place] Interpretation and review of laboratory results Abnormal [place] Lymphocytes (Bld) [#/Vol] 1.70 10*3/uL [place] Lymphocytes/100 WBC (Bld) 21 % Low 24 - 43 % [place] MCH (RBC) [Entitic mass] 28.1 pg 25.2 - 33.5 pg [place] MCHC (RBC) [Mass/Vol] 32.7 g/dL 28.4 - 34.8 g/dL [place] MCV (RBC) [Entitic vol] 85.8 fL 82.6 - 102.9 fL [place] Monocytes (Bld) [#/Vol] 0.54 10*3/uL [place] Monocytes/100 WBC (Bld) 7 % 3 - 12 % [place] Platelet mean volume (Bld) [Entitic vol] 10.7 fL 8.1 - 13.5 fL [place] Platelets (Bld) [#/Vol] NOT REPORTED [place] Platelets (Bld) [#/Vol] 337 10*3/uL [place] RBC (Bld) [#/Vol] 5.20 10*6/uL High 3.95 - 5.1 1 m/uL [place] RBC morphology finding Nom (Bld) NOT REPORTED [place] Segmented neutrophils/100 WBC (Bld) 68 % High 36 - 65 % [place] Segs Absolute 5.83 [place] WBC (Bld) [#/Vol] 8.3 10*3/uL [place] WBC (Bld) [#/Vol] 0.0 10*3/uL 0.0 per 10 0 WBC [place] WBC Morphology NOT REPORTED [place] Comprehensive Metabolic Pane jani 04-08-2020 Albumin [Mass/Vol] 4 g/dL 3.5 - 5.2 g/dL [place] Albumin/Globulin [Mass ratio] 1.7 {ratio} [place] ALP [Catalytic activity/Vol] 66 U/L 35 - 104 U/L [place] ALT [Catalytic activity/Vol] 16 U/L 5 - 33 U/L [place] Anion gap [Moles/Vol] 11 mmol/L 9 - 17 mmol/L [place] AST [Catalytic activity/Vol] 13 U/L <32 [place] Bilirubin Ql (U) 0.28 mg/dL Low 0.3 - 1.2 mg/dL [place] Bun/Cre Ratio NOT REPORTED [place] Calcium [Mass/Vol] 9.1 mg/dL 8.6 - 10. 4 mg/dL [place] Chloride [Moles/Vol] 103 mmol/L 98 - 10 7 mmol/L [place] CO2 [Moles/Vol] 21 mmol/L 20 - 31 mmol/L [place] Creatinine [Mass/Vol] 0.78 mg/dL 0.5 - 0.9 mg/dL [place] GFR >60 >60 mL/min [place] GFR Non- >60 >60 mL/min [place] GFR/1.73 sq M predicted among non-blacks MDRD (S/P/Bld) [Vol rate/Area] [place] Comment on above: Average GFR for 20-2 9 years old: 116 mL/min/1.73sq m Chronic Kidney Disease: <60 mL/min/1.73sq m Kidney failure: <15 mL/min/1.73sq m eGFR calculated using average adult body mass. Additional eGFR calculator available at: http://www.[employer]/multiple_crcl_2012.htm GFR/1.73 sq M predicted among non-blacks MDRD (S/P/Bld) [Vol rate/Area] NOT REPORTED [place] Glucose [Mass/Vol] 97 mg/dL 70 - 99 mg/dL [place] Interpretation and review of laboratory results Abnormal [place] Potassium [Moles/Vol] 4.4 mmol/L 3.7 - 5.3 mmol/L [place] Protein [Mass/Vol] 6.4 g/dL 6.4 - 8.3 g/dL [place] Sodium [Moles/Vol] 135 mmol/L 135 - 144 mmol/L [place] Urea nitrogen [Mass/Vol] 12 mg/dL 6 - 20 mg/dL [place] Hemoglobin A1Con 04-08-2020 Glucose [Mass/Vol] 111 mg/dL [place] Comment on above: The ADA and AACC rec ommend providing the estimated average glucose result to permit better patient understanding of their HBA1c result. HbA1c (Bld) [Mass fraction] 5.5 % 4 - 6 % [place] Insulin, totalon 04-08-2020 INR Coag (Bld) [Relative time] [place] Comment on above: Fastin.6-24.9 30 min: 20-112 60 min: 29-88 90 min: 26-84 120 min: 22-79 Insulin 27.4 mU/L [place] Insulin Comment NOT REPORTED [place] T3on 04-08-2020 T3, Total 97 ng/dL 60 - 181 ng/dL [place] T3, Uptakeon 04-08-2020 Interpretation and review of laboratory results Abnormal [place] T4 [Mass/Vol] 37.23 % High 22.5 - 37 % [place] T4on 04-08-2020 T4, Total 6.4 ug/dL 4.5 - 10.9 ug/dL [place] TSH without Reflexon 021 TSH Qn 1.39 m[IU]/L [place] Cult, Bloodon 12-04-2018 Cult, Blood Specimen Description .BLOOD Special Requests RAC 10ML Culture NO GROWTH 5 DAYS Report Status FINAL 12/04/2018 Normal [facility] Comment on above: Performed By: #### T OXOM, HSVG12, CMVM, FA2, MATIAS, TOXOG, HSVM12, CMVG, FA5 #### [facility] [address] [place] [address] Histology Teacher: Geo Mar MD #### CBC, FIB #### [facility] [address] [place] [address] Histology Teacher: Mario Anne MD #### APROTS, APARVP, APROTC, ARUBGM #### [facility] [address] [place] [address] Histology Teacher: Fernando Valencia MD #### LUPPRO #### [address] [address] Histology Teacher: Geo Mar MD [address] [place] [address] Histology Teacher: Mario Anne MD Cult,Bloodon 12-03-2018 Cult,Blood Specimen Description .BLOOD Special Requests LAC 20 ML Culture NO GROWTH 5 DAYS Report Status FINAL 12/03/2018 Normal [facility] Comment on above: Performed By: #### T OXOM, HSVG12, CMVM, FA2, MATIAS, TOXOG, HSVM12, CMVG, FA5 #### [address] [address] Histology Teacher: Geo Mar MD #### CBC, FIB #### [address] [place] [address] Histology Teacher: Mario Anne MD #### APROTS, APARVP, APROTC, ARUBGM #### [facility] [address] [place] [address] Histology Teacher: Fernando Valencia MD #### LUPPRO #### [address] [address] Histology Teacher: Geo Mar MD [address] [place] [address] Histology Teacher: Mario Anne MD CBCon 11-30-2018 Erythrocyte distribution width (RBC) [Ratio] 13.4 % Normal 11.8-14.4 [facility] Comment on above: Performed By: #### T OXOM, HSVG12, CMVM, FA2, MATIAS, TOXOG, HSVM12, CMVG, FA5 #### [address] [address] Histology Teacher: Geo Mar MD #### CBC, FIB #### [address] [place] [address] Histology Teacher: Mario Anne MD #### APROTS, APARVP, APROTC, ARUBGM #### [facility] [address] [place], [place] [id number] Histology Teacher: Fernando Valencia MD #### LUPPRO #### [address] [id number] Histology Teacher: Geo Mar MD [address] [place] [address] Histology Teacher: Mario Anne MD Hematocrit (Bld) [Volume fraction] 26.6 % Low 36.3-47.1 [facility] Comment on above: Performed By: #### T OXOM, HSVG12, CMVM, FA2, MATIAS, TOXOG, HSVM12, CMVG, FA5 #### [address] [address] Histology Teacher: Geo Mar MD #### CBC, FIB #### [address] [place] [address] Histology Teacher: Mario Anne MD #### APROTS, APARVP, APROTC, ARUBGM #### [facility] [address] [place], [place] [id number] Histology Teacher: Fernando Valencia MD #### LUPPRO #### [address] [id number] Histology Teacher: Geo Mar MD [address] [place] [address] Histology Teacher: Mario Anne MD Hemoglobin (Bld) [Mass/Vol] 8.1 g/dL Low 11.9-15.1 [facility] Comment on above: Performed By: #### T OXOM, HSVG12, CMVM, FA2, MATIAS, TOXOG, HSVM12, CMVG, FA5 #### [address] [address] Histology Teacher: Geo Mar MD #### CBC, FIB #### [address] [place], [place] [id number] Histology Teacher: Mario Anne MD #### APROTS, APARVP, APROTC, ARUBGM #### [facility] [address] [place], [place] [id number] Histology Teacher: Fernando Valencia MD #### LUPPRO #### [address] [address] Histology Teacher: Geo Mar MD [address] [place] [id number] Histology Teacher: Mario Anne MD MCH (RBC) [Entitic mass] 27.2 pg Normal 25.2-33.5 [facility] Comment on above: Performed By: #### T OXOM, HSVG12, CMVM, FA2, MATIAS, TOXOG, HSVM12, CMVG, FA5 #### [address] [address] Histology Teacher: Geo Mar MD #### CBC, FIB #### [address] [place] [address] Histology Teacher: Mario Anne MD #### APROTS, APARVP, APROTC, ARUBGM #### [facility] [address] [place], [place] [id number] Histology Teacher: Fernando Valencia MD #### LUPPRO #### [address] [address] Histology Teacher: Geo Mar MD [address] [place] [id number] Histology Teacher: Mario Anne MD MCHC (RBC) [Mass/Vol] 30.5 g/dL Normal 28.4-34.8 [facility] Comment on above: Performed By: #### T OXOM, HSVG12, CMVM, FA2, MATIAS, TOXOG, HSVM12, CMVG, FA5 #### [address] [id number] Histology Teacher: Geo Mar MD #### CBC, FIB #### [address] [place] [id number] Histology Teacher: Mario Anne MD #### APROTS, APARVP, APROTC, ARUBGM #### [facility] [address] [place], [place] [id number] Histology Teacher: Fernando Valencia MD #### LUPPRO #### [place] [address] Histology Teacher: Geo Mar MD [address] [place] [id number] Histology Teacher: Mario Anne MD MCV (RBC) [Entitic vol] 89.3 fL Normal 82.6-102.9 [facility] Comment on above: Performed By: #### T OXOM, HSVG12, CMVM, FA2, MATIAS, TOXOG, HSVM12, CMVG, FA5 #### [address] [address] Histology Teacher: Geo Mar MD #### CBC, FIB #### [address] [place] [id number] Histology Teacher: Mario Anne MD #### APROTS, APARVP, APROTC, ARUBGM #### [facility] [address] [place], [place] [id number] Histology Teacher: Fernando Valencia MD #### LUPPRO #### [address] [address] Histology Teacher: Geo Mar MD [address] [place] [id number] Histology Teacher: Mario Anne MD NRBC Automated 0.0 per 100 WBC Normal 0.0 [facility] Comment on above: Performed By: #### T OXOM, HSVG12, CMVM, FA2, MATIAS, TOXOG, HSVM12, CMVG, FA5 #### [address] [address] Histology Teacher: Geo Mar MD #### CBC, FIB #### [address] [place] [id number] Histology Teacher: Mario Anne MD #### APROTS, APARVP, APROTC, ARUBGM #### [facility] [address] [place] [address] Histology Teacher: Fernando Valencia MD #### LUPPRO #### [address] [address] Histology Teacher: Geo Mar MD [address] [place] [id number] Histology Teacher: Mario Anne MD Platelet mean volume (Bld) [Entitic vol] 10.0 fL Normal 8.1-13.5 [facility] Comment on above: Performed By: #### T OXOM, HSVG12, CMVM, FA2, MATAIS, TOXOG, HSVM12, CMVG, FA5 #### [address] [address] Histology Teacher: Geo Mar MD #### CBC, FIB #### [address] [place] [address] Histology Teacher: Mario Anne MD #### APROTS, APARVP, APROTC, ARUBGM #### [facility] [address] [place] [address] Histology Teacher: Fernando Valencia MD #### LUPPRO #### [address] [address] Histology Teacher: Geo Mar MD [address] [place] [phone] Histology Teacher: Mario Anne MD Platelets (Bld) [#/Vol] 255 10*3/uL Normal 138-453 [facility] Comment on above: Performed By: #### T OXOM, HSVG12, CMVM, FA2, MATIAS, TOXOG, HSVM12, CMVG, FA5 #### [address] [address] Histology Teacher: Geo Mar MD #### CBC, FIB #### [address] [place] [address] Histology Teacher: Mario Anne MD #### APROTS, APARVP, APROTC, ARUBGM #### [facility] [address] [place] [address] Histology Teacher: Fernando Valencia MD #### LUPPRO #### [address] [address] Histology Teacher: Geo Mar MD [address] [place] [address] Histology Teacher: Mario Anne MD RBC (Bld) [#/Vol] 2.98 10*6/uL Low 3.95-5.11 [facility] Comment on above: Performed By: #### T OXOM, HSVG12, CMVM, FA2, MATIAS, TOXOG, HSVM12, CMVG, FA5 #### [address] [address] Histology Teacher: Geo Mar MD #### CBC, FIB #### [address] [place], [place] [id number] Histology Teacher: Mario Anne MD #### APROTS, APARVP, APROTC, ARUBGM #### [facility] [address] [place] [address] Histology Teacher: Fernando Valencia MD #### LUPPRO #### [address] [address] Histology Teacher: Geo Mar MD [address] [place], [place] [id number] Histology Teacher: Mario Anne MD WBC (Bld) [#/Vol] 6.3 10*3/uL Normal 3.5-11.3 [facility] Comment on above: Performed By: #### T OXOM, HSVG12, CMVM, FA2, MATIAS, TOXOG, HSVM12, CMVG, FA5 #### [address] [address] Histology Teacher: Geo Mar MD #### CBC, FIB #### [address] [place], [place] [phone] Histology Teacher: Mario Anne MD #### APROTS, APARVP, APROTC, ARUBGM #### [facility] [address] [place], [place] [id number] Histology Teacher: Fernando Valencia MD #### LUPPRO #### [address] [address] Histology Teacher: Geo Mar MD [address] [place], [place] [id number] Histology Teacher: Mario Anne MD Erythrocyte distribution width (RBC) [Ratio] 13.4 % 11.8 - 14.4 % [place] Hematocrit (Bld) [Volume fraction] 26.6 % Low 36.3 - 47.1 % [place] Hemoglobin (Bld) [Mass/Vol] 8.1 g/dL Low 11.9 - 15.1 g/dL [place] Interpretation and review of laboratory results Abnormal [place] MCH (RBC) [Entitic mass] 27.2 pg 25.2 - 33.5 pg [place] MCHC (RBC) [Mass/Vol] 30.5 g/dL 28.4 - 34.8 g/dL [place] MCV (RBC) [Entitic vol] 89.3 fL 82.6 - 102.9 fL [place] Platelet mean volume (Bld) [Entitic vol] 10.0 fL 8.1 - 13.5 fL [place] Platelets (Bld) [#/Vol] 255 10*3/uL [place] RBC (Bld) [#/Vol] 2.98 10*6/uL Low 3.95 - 5.1 1 m/uL [place] WBC (Bld) [#/Vol] 6.3 10*3/uL [place] WBC (Bld) [#/Vol] 0.0 10*3/uL 0.0 per 10 0 WBC [place] Comp Metabolic Pr/rfx MGon 0 11-30-2018 (cont.) Normal [facility] Comment on above: Result Comment: Aver age GFR for 20-29 years old: 116 mL/min/1.73sq m Chronic Kidney Disease: <60 mL/min/1.73sq m Kidney failure: <15 mL/min/1.73sq m eGFR calculated using average adult body mass. Additional eGFR calculator available at: http://www.[employer].com/multiple_crcl_2011.htm Performed By: #### T OXOM, HSVG12, CMVM, FA2, AMTIAS, TOXOG, HSVM12, CMVG, FA5 #### [employer] [address] [place] [address] Histology Teacher: Geo Mar MD #### CBC, FIB #### [address] [place], [place] [id number] Histology Teacher: Mario Anne MD #### APROTS, APARVP, APROTC, ARUBGM #### [facility] [address] [place], [place] [id number] Histology Teacher: Fernando Valencia MD #### LUPPRO #### [address] [address] Histology Teacher: Geo Mar MD [address] [place], [place] [id number] Histology Teacher: Mario Anne MD Albumin [Mass/Vol] 2.9 g/dL Low 3.5-5.2 [facility] Comment on above: Performed By: #### T OXOM, HSVG12, CMVM, FA2, MATIAS, TOXOG, HSVM12, CMVG, FA5 #### [address] [address] Histology Teacher: Geo Mar MD #### CBC, FIB #### [address] [place], [place] [id number] Histology Teacher: Mario Anne MD #### APROTS, APARVP, APROTC, ARUBGM #### [facility] [address] [place] [address] Histology Teacher: Fernando Valencia MD #### LUPPRO #### [address] [address] Histology Teacher: Geo Mar MD [facility] [address] [place] [address] [place] [address] Histology Teacher: Mario Anne MD Albumin/Globulin [Mass ratio] 1.1 {ratio} Normal 1.0-2.5 [facility] Comment on above: Performed By: #### T OXOM, HSVG12, CMVM, FA2, MATIAS, TOXOG, HSVM12, CMVG, FA5 #### [address] [address] Histology Teacher: Geo Mar MD #### CBC, FIB #### [address] [place], [place] [id number] Histology Teacher: Mario Anne MD #### APROTS, APARVP, APROTC, ARUBGM #### [facility] [address] [place] [address] Histology Teacher: Fernando Valencia MD #### LUPPRO #### [address] [address] Histology Teacher: Geo Mar MD [address] [place], [place] 2144283 Histology Teacher: Mario Anne MD Alkaline Phos 41 U/L Normal 35-104 [facility] Comment on above: Performed By: #### T OXOM, HSVG12, CMVM, FA2, MATIAS, TOXOG, HSVM12, CMVG, FA5 #### [address] [address] Histology Teacher: Geo Mar MD #### CBC, FIB #### [address] [place], [place] [id number] Histology Teacher: Mario Anne MD #### APROTS, APARVP, APROTC, ARUBGM #### [facility] [address] [place] [address] Histology Teacher: Fernando Valencia MD #### LUPPRO #### [address] [address] Histology Teacher: Geo Mar MD [address] [place], [place] [id number] Histology Teacher: Mario Anne MD ALT [Catalytic activity/Vol] 17 U/L Normal 5-33 [facility] Comment on above: Performed By: #### T OXOM, HSVG12, CMVM, FA2, MATIAS, TOXOG, HSVM12, CMVG, FA5 #### [address] [address] Histology Teacher: Geo Mar MD #### CBC, FIB #### [address] [place], [place] [phone] Histology Teacher: Mario Anne MD #### APROTS, APARVP, APROTC, ARUBGM #### [facility] [address] [place] [address] Histology Teacher: Fernando Valencia MD #### LUPPRO #### [address] [address] Histology Teacher: Geo Mar MD [address] [place] [phone] Histology Teacher: Mario Anne MD Anion gap [Moles/Vol] 14 mmol/L Normal 9-17 [facility] Comment on above: Performed By: #### T OXOM, HSVG12, CMVM, FA2, MATIAS, TOXOG, HSVM12, CMVG, FA5 #### [address] [address] Histology Teacher: Geo Mar MD #### CBC, FIB #### [address] [place] [address] Histology Teacher: Mario Anne MD #### APROTS, APARVP, APROTC, ARUBGM #### [facility] [address] [place] [address] Histology Teacher: Fernando Valencia MD #### LUPPRO #### [address] [address] Histology Teacher: Geo Mar MD [address] [place] [id number] Histology Teacher: Mario Anne MD AST [Catalytic activity/Vol] 14 U/L Normal <32 [facility] Comment on above: Performed By: #### T OXOM, HSVG12, CMVM, FA2, MATIAS, TOXOG, HSVM12, CMVG, FA5 #### [address] [id number] Histology Teacher: Geo Mar MD #### CBC, FIB #### [address] [place], [place] 1502983 Histology Teacher: Mario Anne MD #### APROTS, APARVP, APROTC, ARUBGM #### [facility] [address] [place], [place] [id number] Histology Teacher: Fernando Valencia MD #### LUPPRO #### [address] [id number] Histology Teacher: Geo Mar MD [address] [place] [address] Histology Teacher: Mario Anne MD Bilirubin Ql (U) 0.16 mg/dL Low 0.3-1.2 [facility] Comment on above: Performed By: #### T OXOM, HSVG12, CMVM, FA2, MATIAS, TOXOG, HSVM12, CMVG, FA5 #### [address] [address] Histology Teacher: Geo Mar MD #### CBC, FIB #### [address] [place] [address] Histology Teacher: Mario Anne MD #### APROTS, APARVP, APROTC, ARUBGM #### [facility] [address] [place] [address] Histology Teacher: Fernando Valencia MD #### LUPPRO #### [address] [place] [address] Histology Teacher: Geo Mar MD [facility] [address] [place] [address] [place] [address] Histology Teacher: Mario Anne MD BUN/CRE Ratio 8 Low 9-20 [facility] Comment on above: Performed By: #### T OXOM, HSVG12, CMVM, FA2, MATIAS, TOXOG, HSVM12, CMVG, FA5 #### [address] [address] Histology Teacher: Geo Mar MD #### CBC, FIB #### [address] [place] [address] Histology Teacher: Mario Anne MD #### APROTS, APARVP, APROTC, ARUBGM #### [facility] [address] [place] [address] Histology Teacher: Fernando Valencia MD #### LUPPRO #### [address] [address] Histology Teacher: Geo Mar MD [address] [place] [address] Histology Teacher: Mario Anne MD Calcium [Mass/Vol] 8.4 mg/dL Low 8.6-10.4 [facility] Comment on above: Performed By: #### T OXOM, HSVG12, CMVM, FA2, MATIAS, TOXOG, HSVM12, CMVG, FA5 #### [place] [address] [place] [address] Histology Teacher: Geo Mar MD #### CBC, FIB #### [address] [place] [address] Histology Teacher: Mario Anne MD #### APROTS, APARVP, APROTC, ARUBGM #### [facility] [address] [place] [address] Histology Teacher: Fernando Valencia MD #### LUPPRO #### [address] [address] Histology Teacher: Geo Mar MD [address] [place], [place] 9753683 Histology Teacher: Mario Anne MD Chloride [Moles/Vol] 105 mmol/L Normal 98-107 [facility] Comment on above: Performed By: #### T OXOM, HSVG12, CMVM, FA2, MATIAS, TOXOG, HSVM12, CMVG, FA5 #### [address] [address] Histology Teacher: Geo Mar MD #### CBC, FIB #### [address] [place] [phone] Histology Teacher: Mario Anne MD #### APROTS, APARVP, APROTC, ARUBGM #### [facility] [address] [place] [address] Histology Teacher: Fernando Valencia MD #### LUPPRO #### [address] [address] Histology Teacher: Geo Mar MD [address] [place] [phone] Histology Teacher: Mario Anne MD CO2 [Moles/Vol] 20 mmol/L Normal 20-31 [facility] Comment on above: Performed By: #### T OXOM, HSVG12, CMVM, FA2, MATIAS, TOXOG, HSVM12, CMVG, FA5 #### [address] [address] Histology Teacher: Geo Mar MD #### CBC, FIB #### [address] [place] [phone] Histology Teacher: Mario Anne MD #### APROTS, APARVP, APROTC, ARUBGM #### [facility] [address] [place], [place] [id number] Histology Teacher: Fernando Valencia MD #### LUPPRO #### [address] [address] Histology Teacher: Geo Mar MD [address] [place] [phone] Histology Teacher: Mario Anne MD Creatinine [Mass/Vol] 0.88 mg/dL Normal 0.50-0.90 [facility] Comment on above: Performed By: #### T OXOM, HSVG12, CMVM, FA2, AMTIAS, TOXOG, HSVM12, CMVG, FA5 #### [address] [address] Histology Teacher: Geo Mar MD #### CBC, FIB #### [address] [place] [phone] Histology Teacher: Mario Anne MD #### APROTS, APARVP, APROTC, ARUBGM #### [facility] [address] [place], [place] [id number] Histology Teacher: Fernando Valencia MD #### LUPPRO #### [address] [address] Histology Teacher: Geo Mar MD [address] [place], [place] 7700283 Histology Teacher: Mario Anne MD GFR, Amer >60 Normal >60 [facility] Comment on above: Performed By: #### T OXOM, HSVG12, CMVM, FA2, MATIAS, TOXOG, HSVM12, CMVG, FA5 #### [address] [address] Histology Teacher: Geo Mar MD #### CBC, FIB #### [facility] [address] [place] [address] Histology Teacher: Mario Anne MD #### APROTS, APARVP, APROTC, ARUBGM #### [facility] [address] [place], [place] [id number] Histology Teacher: Fernando Valencia MD #### LUPPRO #### [address] [phone] Histology Teacher: Geo Mar MD [facility] [address] [place] [address] [place] [address] Histology Teacher: Mario Anne MD GFR,non Amer >60 Normal >60 [facility] Comment on above: Performed By: #### T OXOM, HSVG12, CMVM, FA2, MATIAS, TOXOG, HSVM12, CMVG, FA5 #### [address] [address] Histology Teacher: Geo Mar MD #### CBC, FIB #### [facility] [address] [place] [address] [place] [address] Histology Teacher: Mario Anne MD #### APROTS, APARVP, APROTC, ARUBGM #### [facility] [address] [place], [place] [id number] Histology Teacher: Fernando Valencia MD #### LUPPRO #### [address] [address] Histology Teacher: Geo Mar MD [facility] [address] [place] [address] [place] [address] Histology Teacher: Mario Anne MD Glucose [Mass/Vol] 123 mg/dL High 70-99 [facility] Comment on above: Performed By: #### T OXOM, HSVG12, CMVM, FA2, MATIAS, TOXOG, HSVM12, CMVG, FA5 #### [address] [address] Histology Teacher: Geo Mar MD #### CBC, FIB #### [address] [place] [address] Histology Teacher: Mario Anne MD #### APROTS, APARVP, APROTC, ARUBGM #### [facility] [address] [place] [address] Histology Teacher: Fernando Valencia MD #### LUPPRO #### [address] [address] Histology Teacher: Geo Mar MD [address] [place] [phone] Histology Teacher: Mario Anne MD Potassium [Moles/Vol] 3.7 mmol/L Normal 3.7-5.3 [facility] Comment on above: Performed By: #### T OXOM, HSVG12, CMVM, FA2, MATIAS, TOXOG, HSVM12, CMVG, FA5 #### [address] [address] Histology Teacher: Geo Mar MD #### CBC, FIB #### [address] [place] [address] Histology Teacher: Mario Anne MD #### APROTS, APARVP, APROTC, ARUBGM #### [facility] [address] [place] [address] Histology Teacher: Fernando Valencia MD #### LUPPRO #### [address] [address] Histology Teacher: Geo Mar MD [address] [place], [place] [phone] Histology Teacher: Mario Anne MD Protein [Mass/Vol] 5.6 g/dL Low 6.4-8.3 [facility] Comment on above: Performed By: #### T OXOM, HSVG12, CMVM, FA2, MATIAS, TOXOG, HSVM12, CMVG, FA5 #### [address] [address] Histology Teacher: Geo Mar MD #### CBC, FIB #### [address] [place], [place] 2154283 Histology Teacher: Mario Anne MD #### APROTS, APARVP, APROTC, ARUBGM #### [facility] [address] [place] [address] Histology Teacher: Fernando Valencia MD #### LUPPRO #### [address] [address] Histology Teacher: Geo Mar MD [address] [place] [phone] Histology Teacher: Mario Anne MD Sodium [Moles/Vol] 139 mmol/L Normal 135-144 [facility] Comment on above: Performed By: #### T OXOM, HSVG12, CMVM, FA2, MATIAS, TOXOG, HSVM12, CMVG, FA5 #### [address] [address] Histology Teacher: Geo Mar MD #### CBC, FIB #### [address] [place], [place] [id number] Histology Teacher: Mario Anne MD #### APROTS, APARVP, APROTC, ARUBGM #### [facility] [address] [place] [address] Histology Teacher: Fernando Valencia MD #### LUPPRO #### [address] [address] Histology Teacher: Geo Mar MD [facility] [address] [place] [address] [place] [address] Histology Teacher: Mario Anne MD Staging: Normal [facility] Comment on above: Result Comment: Stag [...] FA2, MATIAS, TOXOG, HSVM12, CMVG, FA5 #### [facility] [address] [place] [address] [id number] Histology Teacher: Geo Mar MD #### CBC, FIB #### [address] [place] [address] Histology Teacher: Mario Anne MD #### APROTS, APARVP, APROTC, ARUBGM #### [facility] [address] [place] [address] Histology Teacher: Fernando Valencia MD #### LUPPRO #### [address] [phone] Histology Teacher: Geo Mar MD [address] [place] [address] Histology Teacher: Mario Anne MD Urea nitrogen [Mass/Vol] 7 mg/dL Normal 6-20 [facility] Comment on above: Performed By: #### T OXOM, HSVG12, CMVM, FA2, MATIAS, TOXOG, HSVM12, CMVG, FA5 #### [facility] [address] [place] [address] [id number] Histology Teacher: Geo Mar MD #### CBC, FIB #### [address] [place] [address] Histology Teacher: Mario Anne MD #### APROTS, APARVP, APROTC, ARUBGM #### [facility] [address] [place] [address] Histology Teacher: Fernando Valencia MD #### LUPPRO #### [facility] [address] [place] [address] Histology Teacher: Geo Mar MD [facility] [address] [place] [address] Histology Teacher: Mario Anne MD Comprehensive Metabolic Pane l w/ Reflex to MGon 11-30-2018 Albumin [Mass/Vol] 2.9 g/dL Low 3.5 - 5.2 g/dL [place] Albumin/Globulin [Mass ratio] 1.1 {ratio} [place] ALP [Catalytic activity/Vol] 41 U/L 35 - 104 U/L [place] ALT [Catalytic activity/Vol] 17 U/L 5 - 33 U/L [place] Anion gap [Moles/Vol] 14 mmol/L 9 - 17 mmol/L [place] AST [Catalytic activity/Vol] 14 U/L <32 [place] Bilirubin Ql (U) 0.16 mg/dL Low 0.3 - 1.2 mg/dL [place] Bun/Cre Ratio 8 Low [place] Calcium [Mass/Vol] 8.4 mg/dL Low 8.6 - 10. 4 mg/dL [place] Chloride [Moles/Vol] 105 mmol/L 98 - 10 7 mmol/L [place] CO2 [Moles/Vol] 20 mmol/L 20 - 31 mmol/L [place] Creatinine [Mass/Vol] 0.88 mg/dL 0.5 - 0.9 mg/dL [place] GFR >60 >60 mL/min [place] GFR Non- >60 >60 mL/min [place] Glucose [Mass/Vol] 123 mg/dL High 70 - 99 mg/dL [place] Interpretation and review of laboratory results Abnormal [place] Potassium [Moles/Vol] 3.7 mmol/L 3.7 - 5.3 mmol/L [place] Protein [Mass/Vol] 5.6 g/dL Low 6.4 - 8.3 g/dL [place] Sodium [Moles/Vol] 139 mmol/L 135 - 144 mmol/L [place] Urea nitrogen [Mass/Vol] 7 mg/dL 6 - 20 mg/dL [place] Cult,Urineon 11-30-2018 Cult,Urine Specimen Description .VOIDED URINE Special Requests NOT REPORTED Culture STREPTOCOCCI, BETA HEMOLYTIC GROUP B >[id number] CFU/ML Report Status FINAL 11/30/2018 Normal [facility] Comment on above: Performed By: #### T OXOM, HSVG12, CMVM, FA2, MATIAS, TOXOG, HSVM12, CMVG, FA5 #### [facility] [address] [place] [address] [phone] Histology Teacher: Geo Mar MD #### CBC, FIB #### [facility] [address] [place] [address] Histology Teacher: Mario Anne MD #### APROTS, APARVP, APROTC, ARUBGM #### [facility] [address] [place] [address] Histology Teacher: Fernando Valencia MD #### LUPPRO #### [address] [phone] Histology Teacher: Geo Mar MD [facility] [address] [place] [address] Histology Teacher: Mario Anne MD Metabolic Panelon 11-30-2018 GFR/1.73 sq M predicted among non-blacks MDRD (S/P/Bld) [Vol rate/Area] [place] Comment on above: Stage 1: Some [...] body mass. Additional eGFR calculator available at: http://www.[employer]/multiple_crcl_2012.htm Vancomycin Troughon 12-01-19 19 Vancomycin Trough 22.3 ug/mL Critically high 10.0-20.0 [facility] Comment on above: Result Comment: High er trough serum vancomycin concentrations of 15-20 ug/mL are recommended for complicated infections such as bacteremia, endocarditis, osteomyelitis, meningitis, and hospital acquired pneumonia. Performed By: #### T OXOM, HSVG12, CMVM, FA2, MATIAS, TOXOG, HSVM12, CMVG, FA5 #### [facility] [address] [place] [address] Histology Teacher: Geo Mar MD #### CBC, FIB #### [facility] [address] [place] [address] Histology Teacher: Mario Anne MD #### APROTS, APARVP, APROTC, ARUBGM #### [facility] [address] [place] [address] Histology Teacher: Fernando Valencia MD #### LUPPRO #### [facility] [address] [place] [address] Histology Teacher: Geo Mar MD [facility] [address] [place] [address] Histology Teacher: Mario Anne MD Date last dose, NOT REPORTED Normal [facility] Comment on above: Performed By: #### T OXOM, HSVG12, CMVM, FA2, MATIAS, TOXOG, HSVM12, CMVG, FA5 #### [address] [address] Histology Teacher: Geo Mar MD #### CBC, FIB #### [address] [place], [place] [phone] Histology Teacher: Mario Anne MD #### APROTS, APARVP, APROTC, ARUBGM #### [facility] [address] [place] [address] Histology Teacher: Fernando Valencia MD #### LUPPRO #### [address] [address] Histology Teacher: Geo Mar MD [address] [place] [address] Histology Teacher: Mario Anne MD Dose amount, NOT REPORTED Normal [facility] Comment on above: Performed By: #### T OXOM, HSVG12, CMVM, FA2, MATIAS, TOXOG, HSVM12, CMVG, FA5 #### [address] [address] Histology Teacher: Geo Mar MD #### CBC, FIB #### [address] [place], [place] 1750883 Histology Teacher: Mario Anne MD #### APROTS, APARVP, APROTC, ARUBGM #### [facility] [address] [place], [place] [id number] Histology Teacher: Fernando Valencia MD #### LUPPRO #### [address] [address] Histology Teacher: Geo Mar MD [address] [place], [place] [phone] Histology Teacher: Mario Anne MD Time last dose, NOT REPORTED Normal [facility] Comment on above: Performed By: #### T OXOM, HSVG12, CMVM, FA2, MATIAS, TOXOG, HSVM12, CMVG, FA5 #### [facility] [address] [place] [address] Histology Teacher: Geo Mar MD #### CBC, FIB #### [address] [place], [place] 1459783 Histology Teacher: Mario Anne MD #### APROTS, APARVP, APROTC, ARUBGM #### [facility] [address] [place] [address] Histology Teacher: Fernando Valencia MD #### LUPPRO #### [facility] [address] [place] [address] Histology Teacher: Geo Mar MD [address] [place] [address] Histology Teacher: Mario Anne MD Vancomycin, troughon 019 Interpretation and review of laboratory results Abnormal [place] Vancomycin Tr 22.3 ug/mL Critically high 10 - 20 ug/mL [place] Comment on above: Higher trough serum vancomycin concentrations of 15-20 ug/mL are recommended for complicated infections such as bacteremia, endocarditis, osteomyelitis, meningitis, and hospital acquired pneumonia. Vancomycin Trough Date last dose NOT REPORTED [place] Vancomycin Trough Dose amount NOT REPORTED [place] Vancomycin Trough Time last dose NOT REPORTED [place] CBCon 11-29-2018 Erythrocyte distribution width (RBC) [Ratio] 13.4 % Normal 11.8-14.4 [facility] Comment on above: Performed By: #### T YS #### [address] [place] [address] Histology Teacher: Mario Anne MD Hematocrit (Bld) [Volume fraction] 27.2 % Low 36.3-47.1 [facility] Comment on above: Performed By: #### T YS #### [address] [place] [address] Histology Teacher: Mario Anne MD Hemoglobin (Bld) [Mass/Vol] 8.3 g/dL Low 11.9-15.1 [facility] Comment on above: Performed By: #### T YS #### [facility] [address] [place], [place] [id number] Histology Teacher: Mario Anne MD MCH (RBC) [Entitic mass] 27.9 pg Normal 25.2-33.5 [facility] Comment on above: Performed By: #### T YS #### [facility] [address] [place] [address] Histology Teacher: Mario Anne MD MCHC (RBC) [Mass/Vol] 30.5 g/dL Normal 28.4-34.8 [facility] Comment on above: Performed By: #### T YS #### [address] [place], [facility]83 Histology Teacher: Mario Anne MD MCV (RBC) [Entitic vol] 91.3 fL Normal 82.6-102.9 [facility] Comment on above: Performed By: #### T YS #### [address] [place], [facility]83 Histology Teacher: Mario Anne MD NRBC Automated 0.0 per 100 WBC Normal 0.0 [facility] Comment on above: Performed By: #### T YS #### [address] [place], [facility] Histology Teacher: Mario Anne MD Platelet mean volume (Bld) [Entitic vol] 9.6 fL Normal 8.1-13.5 [facility] Comment on above: Performed By: #### T YS #### [address] [place], [place] [id number] Histology Teacher: Mario Anne MD Platelets (Bld) [#/Vol] 243 10*3/uL Normal 138-453 [facility] Comment on above: Performed By: #### T YS #### [facility] [address] [place] [address] Histology Teacher: Mario Anne MD RBC (Bld) [#/Vol] 2.98 10*6/uL Low 3.95-5.11 [facility] Comment on above: Performed By: #### T YS #### [facility] [address] [place] [address] Histology Teacher: Mario Anne MD WBC (Bld) [#/Vol] 16.6 10*3/uL High 3.5-11.3 [facility] Comment on above: Performed By: #### T YS #### [facility] [address] [place] [address] Histology Teacher: Mario Anne MD Erythrocyte distribution width (RBC) [Ratio] 13.4 % 11.8 - 14.4 % [place] Hematocrit (Bld) [Volume fraction] 27.2 % Low 36.3 - 47.1 % [place] Hemoglobin (Bld) [Mass/Vol] 8.3 g/dL Low 11.9 - 15.1 g/dL [place] Interpretation and review of laboratory results Abnormal [place] MCH (RBC) [Entitic mass] 27.9 pg 25.2 - 33.5 pg [place] MCHC (RBC) [Mass/Vol] 30.5 g/dL 28.4 - 34.8 g/dL [place] MCV (RBC) [Entitic vol] 91.3 fL 82.6 - 102.9 fL [place] Platelet mean volume (Bld) [Entitic vol] 9.6 fL 8.1 - 13.5 fL [place] Platelets (Bld) [#/Vol] 243 10*3/uL [place] RBC (Bld) [#/Vol] 2.98 10*6/uL Low 3.95 - 5.1 1 m/uL [place] WBC (Bld) [#/Vol] 16.6 10*3/uL [facility] [place] WBC (Bld) [#/Vol] 0.0 10*3/uL 0.0 per 10 0 WBC [place] CONSULTATIONon 11-29-[address] [id number] CONSULTATION PATIENT NAME: DEION CUMMINGS : 1995 MED REC NO: [id number] ROOM: 0328 ACCOUNT NO: [id number] ADMIT DATE: 11/28/2018 PROVIDER: Jennifer Hedrick CONSULT [...] the consultation in this matter. JENNIFER HEDRICK /[id number] Doc#: [id number] CC: Normal [facility] Comp Metabolic Pr/rfx MGon 0 11-29-2018 (cont.) [facility] Comment on above: Result Comment: Aver age GFR for 20-29 years old: 116 mL/min/1.73sq m Chronic Kidney Disease: <60 mL/min/1.73sq m Kidney failure: <15 mL/min/1.73sq m eGFR calculated using average adult body mass. Additional eGFR calculator available at: http://www.[employer]/multiple_crcl_2012.htm Performed By: #### T YS #### [facility] [address] [place] [address] Histology Teacher: Mario Anne MD Albumin [Mass/Vol] 3.1 g/dL Low 3.5-5.2 [facility] Comment on above: Performed By: #### T YS #### [facility] [address] [place] [address] Histology Teacher: Mario Anne MD Albumin/Globulin [Mass ratio] 1.2 {ratio} Normal 1.0-2.5 [facility] Comment on above: Performed By: #### T YS #### [facility] [address] [place] [address] Histology Teacher: Mario Anne MD Alkaline Phos 38 U/L Normal 35-104 [facility] Comment on above: Performed By: #### T YS #### [facility] [address] [place] [address] Histology Teacher: Mario Anne MD ALT [Catalytic activity/Vol] 15 U/L Normal 5-33 [facility] Comment on above: Performed By: #### T YS #### [facility] [address] [place] [address] Histology Teacher: Mario Anne MD Anion gap [Moles/Vol] 13 mmol/L Normal 9-17 [facility] [facility] Comment on above: Performed By: #### T YS #### [facility] [address] [place] [id number] Histology Teacher: Mario Anne MD AST [Catalytic activity/Vol] 11 U/L Normal <32 [facility] Comment on above: Performed By: #### T YS #### [facility] [address] [place] [address] Histology Teacher: Mario Anne MD Bilirubin Ql (U) 0.56 mg/dL Normal 0.3-1.2 [facility] Comment on above: Performed By: #### T YS #### [facility] [address] [place], [place] [id number] Histology Teacher: Mario Anne MD BUN/CRE Ratio 9 Normal 9-20 [facility] Comment on above: Performed By: #### T YS #### [facility] [address] [place], [place] [id number] Histology Teacher: Mario Anne MD Calcium [Mass/Vol] 8.5 mg/dL Low 8.6-10.4 [facility] Comment on above: Performed By: #### T YS #### [facility] [address] [place] [address] Histology Teacher: Mario Anne MD Chloride [Moles/Vol] 101 mmol/L Normal 98-107 [facility] Comment on above: Performed By: #### T YS #### [facility] [address] [place] [id number] Histology Teacher: Mario Anne MD CO2 [Moles/Vol] 20 mmol/L Normal 20-31 [facility] Comment on above: Performed By: #### T YS #### [facility] [address] [place], [place] [id number] Histology Teacher: Mario Anne MD Creatinine [Mass/Vol] 0.80 mg/dL Normal 0.50-0.90 [facility] Comment on above: Performed By: #### T YS #### [facility] [address] [place], [place] [id number] Histology Teacher: Mario Anne MD GFR, Amer >60 Normal >60 [facility] Comment on above: Performed By: #### T YS #### [facility] [address] [place], [place] [id number] Histology Teacher: Mario Anne MD GFR,non Amer >60 Normal >60 [facility] Comment on above: Performed By: #### T YS #### [facility] [address] [place], [place] [id number] Histology Teacher: Mario Anne MD Glucose [Mass/Vol] 121 mg/dL High 70-99 [facility] Comment on above: Performed By: #### T YS #### [facility] [address] [place], [place] [id number] Histology Teacher: Mario Anne MD Potassium [Moles/Vol] 3.4 mmol/L Low 3.7-5.3 [facility] Comment on above: Performed By: #### T YS #### [facility] [address] [place], [place] [id number] Histology Teacher: Mario Anne MD Protein [Mass/Vol] 5.7 g/dL Low 6.4-8.3 [facility] Comment on above: Performed By: #### T YS #### [facility] [address] [place] [address] Histology Teacher: Mario Anne MD Sodium [Moles/Vol] 134 mmol/L Low 135-144 [facility] Comment on above: Performed By: #### T YS #### [address] [place], [place] [id number] Histology Teacher: Mario Anne MD Staging: Normal [facility] Comment on above: Result Comment: Stag e 1: Some kidney damage normal GFR Stage 2: Mild kidney damage GFR 60-89 Stage 3: Moderate kidney damage GFR 30-59 Stage 4: Severe kidney damage GFR 15-29 Stage 5: Severe kidney damage GFR <15 ESRD - chronic treatment by dialysis or transplant Performed By: #### T YS #### [address] [place], [place] [id number] Histology Teacher: Mario Anne MD Urea nitrogen [Mass/Vol] 7 mg/dL Normal 6-20 [facility] Comment on above: Performed By: #### T YS #### [facility] [address] [place] [address] Dr. [place], [place] [id number] Histology Teacher: Mario Anne MD Comprehensive Metabolic Pane l w/ Reflex to MGon 11-29-2018 Albumin [Mass/Vol] 3.1 g/dL Low 3.5 - 5.2 g/dL [place] Albumin/Globulin [Mass ratio] 1.2 {ratio} [place] ALP [Catalytic activity/Vol] 38 U/L 35 - 104 U/L [place] ALT [Catalytic activity/Vol] 15 U/L 5 - 33 U/L [place] Anion gap [Moles/Vol] 13 mmol/L 9 - 17 mmol/L [place] AST [Catalytic activity/Vol] 11 U/L <32 [place] Bilirubin Ql (U) 0.56 mg/dL 0.3 - 1.2 mg/dL [place] Bun/Cre Ratio 9 [place] Calcium [Mass/Vol] 8.5 mg/dL Low 8.6 - 10. 4 mg/dL [place] Chloride [Moles/Vol] 101 mmol/L 98 - 10 7 mmol/L [place] CO2 [Moles/Vol] 20 mmol/L 20 - 31 mmol/L [place] Creatinine [Mass/Vol] 0.8 mg/dL 0.5 - 0.9 mg/dL [place] GFR >60 >60 mL/min [place] GFR Non- >60 >60 mL/min [place] Glucose [Mass/Vol] 121 mg/dL High 70 - 99 mg/dL [place] Interpretation and review of laboratory results Abnormal [place] Potassium [Moles/Vol] 3.4 mmol/L Low 3.7 - 5.3 mmol/L [place] Protein [Mass/Vol] 5.7 g/dL Low 6.4 - 8.3 g/dL [place] Sodium [Moles/Vol] 134 mmol/L Low 135 - 144 mmol/L [place] Urea nitrogen [Mass/Vol] 7 mg/dL 6 - 20 mg/dL [place] Factor II Activityon 019 Factor II Activity 120 % Normal 50-150 [facility] Comment on above: Performed By: #### C BC #### [facility] [address] [place] [address] Histology Teacher: Mario Anne MD Factor V Activityon 11-30-19 19 Factor V Activity 120 % Normal 50-150 [facility] Comment on above: Performed By: #### C BC #### [facility] [address] [place] [address] Histology Teacher: Mario Anne MD Lupus Anticoagulanton 2018 Dilute Alexandr Viper Negative Normal NLUP [facility] Comment on above: Performed By: #### C BC #### [facility] [address] [place] [address] Histology Teacher: Mario Anne MD Magnesiumon 11-29-2018 Magnesium [Mass/Vol] 1.9 mg/dL Normal 1.6-2.6 [facility] Comment on above: Performed By: #### T YS #### [facility] [address] [place] [address] Histology Teacher: Mario Anne MD Magnesium [Mass/Vol] 1.9 mg/dL 1.6 - 2 .6 mg/dL [place] Metabolic Panelon 11-29-2018 GFR/1.73 sq M predicted among non-blacks MDRD (S/P/Bld) [Vol rate/Area] [place] Comment on above: Average GFR for 20-2 9 years old: 116 mL/min/1.73sq m Chronic Kidney Disease: <60 mL/min/1.73sq m Kidney failure: <15 mL/min/1.73sq m eGFR calculated using average adult body mass. Additional eGFR calculator available at: http://www.[employer]/multiple_crcl_2012.htm Stage 1: Some kidney damage normal GFR [...] Nba Thomas MD 11/29/18 Final result Normal [facility] No retained products demonstrated. [place] Bonifacio, Cassidy Incoming Radiant Results From [employer] - 11/29/2018 12:12 AM EDT EXAMINATION: PELVIC ULTRASOUND 11/28/2018 TECHNIQUE: Transabdominal pelvic ultrasound COMPARISON: None HISTORY: ORDERING SYSTEM PROVIDED HISTORY: Rule out retained products of conception FINDINGS: No intrauterine gestational sac is identified. The endometrium measures up to 6.7 mm in thickness. No retained products of conception are demonstrated. IMPRESSION: No retained products demonstrated. [facility] [place] EXAMINATION: PELVIC ULTRASOUND 11/28/2018 TECHNIQUE: Transabdominal pelvic ultrasound COMPARISON: None HISTORY: ORDERING SYSTEM PROVIDED HISTORY: Rule out retained products of conception FINDINGS: No intrauterine gestational sac is identified. The endometrium measures up to 6.7 mm in thickness. No retained products of conception are demonstrated. [facility] [place] VL DUP LOWER EXTREMITY VENOU S BILATERALon 11-29-2018 Bonifacio, Mhpn Incoming Cardio Results From [employer] - 11/29/2018 3:57 PM EDT [facility] Vascular Lower Extremities DVT Study Procedure Patient Name TOMY Date of Study 11/29/2018 DEION Lopez Date of 1995 Gender Female Age 23 year(s) Race Room Number 0328 Corporate ID [id number] # Patient Acct [id number] # MR # [id number] Electrical Design Technologist CARLOS Carey Interpreting Physician Matt Mayer MD [...] !Phasic! ! ! + ------+------+------+- --------- + [facility] Vascular Lower Extremities DVT Study Procedure Patient Name TOMY Date of Study 11/29/2018 DEION L Date of 1995 Gender Female Age 23 year(s) Race Room Number 0328 Corporate ID [id number] # Patient Acct [id number] # MR # [id number] Electrical Design Technologist CARLOS Carey Interpreting Physician Matt Mayer MD [...] !Popliteal !Phasic! ! ! + ------+------+------+- ---------+ [facility] APTTon 11-28-2018 aPTT Coag (Bld) [Time] 21.5 s Low 23.2-34.4 [facility] Comment on above: Performed By: #### L IP, CMPX, PT, CDP, PTT ####[facility] [place] [address] lab Director: Mario Anne MD aPTT Coag (Bld) [Time] 21.5 s Low [facility]- [place] Blood gas, venouson 11-29-19 19 Marco Test NOT REPORTED [facility] [place] aPTT Coag (Bld) [Time] NOT REPORTED [facility] Carboxyhemoglobin 0 - 5 % [facility] ealt- [place] FIO2 NOT REPORTED [facility] [place] HCO3, Venous 20.5 mmol/L Low 24 - 30 mmol/L [facility] Interpretation and review of laboratory results Abnormal [facility] Methemoglobin NOT REPORTED 0 - 1.9 % [facility] [place] Mode NOT REPORTED [facility] [place] Negative Base Excess, [place] 2.9 mmol/L High 0 - 2 mmol/L [facility] NOTIFICATION NOT REPORTED [facility] th- [place] NOTIFICATION TIME NOT REPORTED [facility] O2 Device/Flow/% NOT REPORTED [facility] Oxygen saturation in Blood 40.2 % Low 60 - 85 % [facility] Oxyhemoglobin NOT REPORTED 95 - 98 % [facility] pCO2, [place] 31.9 Low [facility] pCO2, [place], Temp Adj NOT REPORTED [facility] [place] Peep/Cpap NOT REPORTED [facility] [place] pH, [place] 7.425 High [facility] pH, [place], Temp Adj NOT REPORTED [place] pO2, [place] 22.2 Low [place] pO2, [place], Temp Adj NOT REPORTED [place] Positive Base Excess, [place] NOT REPORTED 0 - 2 mmol/L [place] PSV NOT REPORTED [place] Pt. Position NOT REPORTED [place] Sample Site NOT REPORTED [place] Set Rate NOT REPORTED [place] Text for Respiratory NOT REPORTED [place], [place] Total Hb NOT REPORTED 12 - 16 g/dl [place] Total Rate NOT REPORTED [place] VT NOT REPORTED [place] CBC auto differentialon 11-19 Basophils (Bld) [#/Vol] 0.03 10*3/uL [place] Basophils/100 WBC (Bld) 0 % 0 - 2 % [place] Differential Type NOT REPORTED [place] Eosinophils (Bld) [#/Vol] 0.17 10*3/uL [place] Eosinophils/100 WBC (Bld) 1 % 1 - 4 % [place] Erythrocyte distribution width (RBC) [Ratio] 13.3 % 11.8 - 14.4 % [place] Hematocrit (Bld) [Volume fraction] 30.5 % Low 36.3 - 47.1 % [place] Hemoglobin (Bld) [Mass/Vol] 9.6 g/dL Low 11.9 - 15.1 g/dL [place] Immature granulocytes (Bld) [#/Vol] 1 % High 0 [place] Immature granulocytes (Bld) [#/Vol] 0.09 10*3/uL [place] Interpretation and review of laboratory results Abnormal [place] Lymphocytes (Bld) [#/Vol] 0.80 10*3/uL Low [place] Lymphocytes/100 WBC (Bld) 5 % Low 24 - 43 % [place] MCH (RBC) [Entitic mass] 28.1 pg 25.2 - 33.5 pg [place] MCHC (RBC) [Mass/Vol] 31.5 g/dL 28.4 - 34.8 g/dL [place] MCV (RBC) [Entitic vol] 89.2 fL 82.6 - 102.9 fL [place] Monocytes (Bld) [#/Vol] 0.65 10*3/uL [place] Monocytes/100 WBC (Bld) 4 % 3 - 12 % [place] Platelet mean volume (Bld) [Entitic vol] 9.9 fL 8.1 - 13.5 fL [place] Platelets (Bld) [#/Vol] 305 10*3/uL [place] Platelets (Bld) [#/Vol] NOT REPORTED [place] RBC (Bld) [#/Vol] 3.42 10*6/uL Low 3.95 - 5.1 1 m/uL [place] RBC morphology finding Nom (Bld) NOT REPORTED [place] Segmented neutrophils/100 WBC (Bld) 89 % High 36 - 65 % [place] Segs Absolute 15.13 High [place] WBC (Bld) [#/Vol] 16.9 10*3/uL [place] WBC (Bld) [#/Vol] 0.0 10*3/uL 0.0 per 10 0 WBC [place] WBC Morphology NOT REPORTED [place] CBC with Diffon 11-28-2018 Abs. Basophil 0.03 k/uL Normal 0.00-0.20 [facility] Comment on above: Performed By: #### L IP, CMPX, PT, CDP, PTT ####[facility] [place] [address] lab Director: Mario Anne MD Abs.Imm.Granulocyte 0.09 k/uL Normal 0.00-0.30 [facility] Comment on above: Performed By: #### L IP, CMPX, PT, CDP, PTT ####[facility] , [place] [address] [facility] Director: Mario Anne MD Abs.Neutrophil (Seg) 15.13 k/uL High 1.50-8.10 [facility] Comment on above: Performed By: #### L IP, CMPX, PT, CDP, PTT ####[address] , [facility]83 lab Director: Mario Anne MD Basophils/100 WBC (Bld) 0 % Normal 0-2 [facility] Comment on above: Performed By: #### L IP, CMPX, PT, CDP, PTT ####[address] , [facility]83 lab Director: Mario Anne MD Eosinophils (Bld) [#/Vol] 0.17 10*3/uL Normal 0.00-0.44 [facility] Comment on above: Performed By: #### L IP, CMPX, PT, CDP, PTT ####[address] , [facility]83 lab Director: Mario Anne MD Eosinophils/100 WBC (Bld) 1 % Normal 1-4 [facility] Comment on above: Performed By: #### L IP, CMPX, PT, CDP, PTT ####[address] , [facility]83 lab Director: Mario Anne MD Erythrocyte distribution width (RBC) [Ratio] 13.3 % Normal 11.8-14.4 [facility] Comment on above: Performed By: #### L IP, CMPX, PT, CDP, PTT ####[address] , [facility]83 lab Director: Mario Anne MD Hematocrit (Bld) [Volume fraction] 30.5 % Low 36.3-47.1 [facility] Comment on above: Performed By: #### L IP, CMPX, PT, CDP, PTT ####[address] , [facility]83 Lab Director: Mario Anne MD Hemoglobin (Bld) [Mass/Vol] 9.6 g/dL Low 11.9-15.1 [facility] Comment on above: Performed By: #### L IP, CMPX, PT, CDP, PTT ####[address] , [facility]83 Lab Director: Mario Anne MD Immature granulocytes (Bld) [#/Vol] 1 % High 0 [facility] Comment on above: Performed By: #### L IP, CMPX, PT, CDP, PTT ####[address] , [facility]83 Lab Director: Mario Anne MD Lymphocytes (Bld) [#/Vol] 0.80 10*3/uL Low 1.10-3.70 [facility] Comment on above: Performed By: #### L IP, CMPX, PT, CDP, PTT ####[address] , [facility]83 Lab Director: Mario Anne MD Lymphocytes/100 WBC (Bld) 5 % Low 24-43 [facility] Comment on above: Performed By: #### L IP, CMPX, PT, CDP, PTT ####[address] , [facility]70([facility])[phone] Director: Mario Anne MD MCH (RBC) [Entitic mass] 28.1 pg Normal 25.2-33.5 [facility] Comment on above: Performed By: #### L IP, CMPX, PT, CDP, PTT ####[address] [place] [address] Lab Director: Mario nAne MD MCHC (RBC) [Mass/Vol] 31.5 g/dL Normal 28.4-34.8 [facility] Comment on above: Performed By: #### L IP, CMPX, PT, CDP, PTT ####[address] , [facility]28([facility])[phone] Director: Mario Anne MD MCV (RBC) [Entitic vol] 89.2 fL Normal 82.6-102.9 [facility] Comment on above: Performed By: #### L IP, CMPX, PT, CDP, PTT ####[address] , [facility]86([facility])[phone] Director: Mario Anne MD Monocytes (Bld) [#/Vol] 0.65 10*3/uL Normal 0.10-1.20 [facility] Comment on above: Performed By: #### L IP, CMPX, PT, CDP, PTT ####[address] , [facility]67([facility])[phone] Director: Mario Anne MD Monocytes/100 WBC (Bld) 4 % Normal 3-12 [facility] Comment on above: Performed By: #### L IP, CMPX, PT, CDP, PTT ####[address] , [facility]77([facility])[phone] Director: Mario Anne MD Neutrophil (Seg) 89 % High 36-65 [facility] Comment on above: Performed By: #### L IP, CMPX, PT, CDP, PTT ####[address] , [place] [address])[phone] Director: Mario Anne MD NRBC Automated 0.0 per 100 WBC Normal 0.0 [facility] Comment on above: Performed By: #### L IP, CMPX, PT, CDP, PTT ####[address] , [facility]83 lab Director: Mario Anne MD Platelet mean volume (Bld) [Entitic vol] 9.9 fL Normal 8.1-13.5 [facility] Comment on above: Performed By: #### L IP, CMPX, PT, CDP, PTT ####[address] , [place] [address])[phone] Director: Mario Anne MD Platelets (Bld) [#/Vol] 305 10*3/uL Normal 138-453 [facility] Comment on above: Performed By: #### L IP, CMPX, PT, CDP, PTT ####[address] , [facility]83[facility])[phone] Director: Mario Anne MD RBC (d) [#/Vol] 3.42 10*6/uL Low 3.95-5.11 [facility] Comment on above: Performed By: #### L IP, CMPX, PT, CDP, PTT ####[address] , [facility]83[facility])[phone] Director: Mario Anne MD WBC (d) [#/Vol] 16.9 10*3/uL High 3.5-11.3 [facility] Comment on above: Performed By: #### L IP, CMPX, PT, CDP, PTT ####[address] , [place] [address])[phone] Director: Mario Anne MD Auto Diff Performed NOT REPORTED Normal [facility] Comment on above: Performed By: #### L IP, CMPX, PT, CDP, PTT ####[address] , [place] [address])[phone] Director: Mario Anne MD Platelets (d) [#/Vol] NOT REPORTED Normal [facility] Comment on above: Performed By: #### L IP, CMPX, PT, CDP, PTT ####[address] , [facility]65 Lab Director: Mario Anne MD RBC morphology finding Nom (d) NOT REPORTED Normal [facility] Comment on above: Performed By: #### L IP, CMPX, PT, CDP, PTT ####[address] [place] [address] Lab Director: Mario Anne MD WBC Morphology NOT REPORTED Normal [facility] Comment on above: Performed By: #### L IP, CMPX, PT, CDP, PTT ####[facility] [place] [address] lab Director: Mario Anne MD CT ABDOMEN [...] Interpreted by: Graeme Stewart MD Signed by: Gareme Stewart MD 11/28/18 Final result Normal [facility] EXAMINATION: CT OF T ABDOMEN AND [...] No lymphadenopathy within the abdomen or pelvis. [facility], [place] No evidence for acut e intra-abdominal or intrapelvic pathology. No bowel obstruction or inflammation. No free intraperitoneal air or fluid. No evidence for urinary obstruction. Normal appendix. 2.5 cm exophytic lesion arising from the interpolar region of the right kidney, indeterminate. Further evaluation with renal ultrasound is recommended on a nonemergent/outpatient basis. [place] Bonifacio, Mhpn Incoming Radiant Results From [employer] - 11/28/2018 8:59 PM EDT EXAMINATION: CT [...] ultrasound is recommended on a nonemergent/outpatient basis. [facility] [place] Comp Metabolic Pr/rfx MGon 0 11-28-2018 AST [Catalytic activity/Vol] 23 U/L Normal <32 [facility] Comment on above: Performed By: #### L IP, CMPX, PT, CDP, PTT ####[address] , [place] [address] lab Director: Mario Anne MD (cont.) [facility] Comment on above: Result Comment: Aver age GFR for 20-29 years old: 116 mL/min/1.73sq m Chronic Kidney Disease: <60 mL/min/1.73sq m Kidney failure: <15 mL/min/1.73sq m eGFR calculated using average adult body mass. Additional eGFR calculator available at: http://www.[employer]ie[employer]/multiple_crcl_2011.htm Performed By: #### L IP, CMPX, PT, CDP, PTT ####[address] , [place] [id number] lab Director: Mario Anne MD Albumin [Mass/Vol] 3.7 g/dL Normal 3.5-5.2 [facility] Comment on above: Performed By: #### L IP, CMPX, PT, CDP, PTT ####[address] , [place] [address] lab Director: Mario Anne MD Albumin/Globulin [Mass ratio] 1.2 {ratio} Normal 1.0-2.5 [facility] Comment on above: Performed By: #### L IP, CMPX, PT, CDP, PTT ####[address] , [place] [id number] lab Director: Mario Anne MD Alkaline Phos 47 U/L Normal 35-104 [facility] Comment on above: Performed By: #### L IP, CMPX, PT, CDP, PTT ####[address] [place] [address] lab Director: Mario Anne MD ALT [Catalytic activity/Vol] 18 U/L Normal 5-33 [facility] Comment on above: Performed By: #### L IP, CMPX, PT, CDP, PTT ####[address] [place] [address] lab Director: Mario Anne MD Anion gap [Moles/Vol] 16 mmol/L Normal 9-17 [facility] Comment on above: Performed By: #### L IP, CMPX, PT, CDP, PTT ####[address] [place] [address] lab Director: Mario Anne MD Bilirubin Ql (U) 0.33 mg/dL Normal 0.3-1.2 [facility] Comment on above: Performed By: #### L IP, CMPX, PT, CDP, PTT ####[address] [place] [address] lab Director: Mario Anne MD BUN/CRE Ratio 10 Normal 9-20 [facility] Comment on above: Performed By: #### L IP, CMPX, PT, CDP, PTT ####[address] [place] [address] lab Director: Mario Anne MD Calcium [Mass/Vol] 9.1 mg/dL Normal 8.6-10.4 [facility] Comment on above: Performed By: #### L IP, CMPX, PT, CDP, PTT ####[address] [place] [address] lab Director: Mario Anne MD Chloride [Moles/Vol] 102 mmol/L Normal 98-107 [facility] Comment on above: Performed By: #### L IP, CMPX, PT, CDP, PTT ####[address] [place] [address] lab Director: Mraio Anne MD CO2 [Moles/Vol] 20 mmol/L Normal 20-31 [facility] Comment on above: Performed By: #### L IP, CMPX, PT, CDP, PTT ####[address] [place] [address] lab Director: Mario Anne MD Creatinine [Mass/Vol] 0.81 mg/dL Normal 0.50-0.90 [facility] Comment on above: Performed By: #### L IP, CMPX, PT, CDP, PTT ####[address] , [place] [id number] lab Director: Mario Anne MD GFR, Amer >60 Normal >60 [facility] Comment on above: Performed By: #### L IP, CMPX, PT, CDP, PTT ####[address] , [place] [address] lab Director: Mario Anne MD GFR,non Amer >60 Normal >60 [facility] Comment on above: Performed By: #### L IP, CMPX, PT, CDP, PTT ####[address] , [place] [id number] lab Director: Mario Anne MD Glucose [Mass/Vol] 93 mg/dL Normal 70-99 [facility] Comment on above: Performed By: #### L IP, CMPX, PT, CDP, PTT ####[address] , [place] [address] lab Director: Mario Anne MD Potassium [Moles/Vol] 3.8 mmol/L Normal 3.7-5.3 [facility] Comment on above: Performed By: #### L IP, CMPX, PT, CDP, PTT ####[address] [place] [address] lab Director: Mario Anne MD Protein [Mass/Vol] 6.9 g/dL Normal 6.4-8.3 [facility] Comment on above: Performed By: #### L IP, CMPX, PT, CDP, PTT ####[address] [place] [address] lab Director: Mario Anne MD Sodium [Moles/Vol] 138 mmol/L Normal 135-144 [facility] Comment on above: Performed By: #### L IP, CMPX, PT, CDP, PTT ####[address] [place] [address] lab Director: Mario Anne MD Staging: Normal [facility] Comment on above: Result Comment: Stag e 1: Some kidney damage normal GFR Stage 2: Mild kidney damage GFR 60-89 Stage 3: Moderate kidney damage GFR 30-59 Stage 4: Severe kidney damage GFR 15-29 Stage 5: Severe kidney damage GFR <15 ESRD - chronic treatment by dialysis or transplant Performed By: #### L IP, CMPX, PT, CDP, PTT ####[address] [place] [address] lab Director: Mario Anne MD Urea nitrogen [Mass/Vol] 8 mg/dL Normal 6-20 [facility] Comment on above: Performed By: #### L IP, CMPX, PT, CDP, PTT ####[address] [place] [address] lab Director: Mario Anne MD Comprehensive Metabolic Pane l w/ Reflex to MGon 11-28-2018 Albumin [Mass/Vol] 3.7 g/dL 3.5 - 5.2 g/dL [place] Albumin/Globulin [Mass ratio] 1.2 {ratio} [place] ALP [Catalytic activity/Vol] 47 U/L 35 - 104 U/L [place] ALT [Catalytic activity/Vol] 18 U/L 5 - 33 U/L [place] Anion gap [Moles/Vol] 16 mmol/L 9 - 17 mmol/L [place] AST [Catalytic activity/Vol] 23 U/L <32 [place] Bilirubin Ql (U) 0.33 mg/dL 0.3 - 1.2 mg/dL [place] Bun/Cre Ratio 10 [place] Calcium [Mass/Vol] 9.1 mg/dL 8.6 - 10. 4 mg/dL [place] Chloride [Moles/Vol] 102 mmol/L 98 - 10 7 mmol/L [place] CO2 [Moles/Vol] 20 mmol/L 20 - 31 mmol/L [place] Creatinine [Mass/Vol] 0.81 mg/dL 0.5 - 0.9 mg/dL [place] GFR >60 >60 mL/min [place] GFR Non- >60 >60 mL/min [place] Glucose [Mass/Vol] 93 mg/dL 70 - 99 mg/dL [place] Potassium [Moles/Vol] 3.8 mmol/L 3.7 - 5.3 mmol/L [place] Protein [Mass/Vol] 6.9 g/dL 6.4 - 8.3 g/dL [place] Sodium [Moles/Vol] 138 mmol/L 135 - 144 mmol/L [place] Urea nitrogen [Mass/Vol] 8 mg/dL 6 - 20 mg/dL [place] Herpes Type I/II, IgGon 11-19 Herpes Type I, IgG 1.22 High <0.91 [facility] Comment on above: Result Comment: Reference Range: <=0.90 Negative 0.91-1.09 Equivocal >=1.10 Positive Performed By: #### C BC #### [facility] [address] [place] [address] [place] [address] Histology Teacher: Mario Anne MD Herpes Type II, IgG 0.56 Normal <0.91 [facility] Comment on above: Result Comment: Reference Range: <=0.90 Negative 0.91-1.09 Equivocal >=1.10 Positive Performed By: #### C BC #### [facility] [address] [place] [address] Histology Teacher: Mario Anne MD Herpes Type I/II,IgMon 11-28 Herpes Type I/II,IgM 1.09 High <0.91 [facility] Comment on above: Result Comment: Reference [...] weeks. Performed By: #### C BC #### [address] [place] [address] Histology Teacher: Mario Anne MD Lactate, Sepsison 11-28-2018 Lactic Acid, Sepsis 1.8 mmol/L Normal 0.5-1.9 [facility] Comment on above: Performed By: #### T YS #### [address] [place] [address] Histology Teacher: Mario Anne MD Lactic Acid,Sep Wbld NOT REPORTED Normal 0.5-1.9 [facility] Comment on above: Performed By: #### T YS #### [address] [place], [place] [id number] Histology Teacher: Mario Anne MD Lactic Acid, Sepsis 1.8 mmol/L 0.5 - 1. 9 mmol/L [place] Lactic Acid, Sepsis, Whole Blood NOT REPORTED 0.5 - 1.9 mmol/L [place] Lipaseon 11-28-2018 Lipase [Catalytic activity/Vol] 21 U/L Normal 13-60 [facility] Comment on above: Performed By: #### L IP, CMPX, PT, CDP, PTT ####[address] [place] [address] Lab Director: Mario Anne MD Lipase [Catalytic activity/Vol] 21 U/L 13 - 60 U/L [place] Lupus Anticoagulanton 2018 Antiphospholipid IgA 0.8 APU Normal <12 [facility] Comment on above: Result Comment: Reference Range: 12 - 15 Equivocal >15 Positive Performed By: #### C BC #### [facility] [address] [place] [address] Histology Teacher: Mario Anne MD Antiphospholipid IgG 3.0 GPU Normal <20 [facility] Comment on above: Result Comment: Reference Range: 20.0 - 29.9 Low Positive 30.0 - 79.9 Moderate Positive >79.9 High Positive Performed By: #### C BC #### [facility] [address] [place] [address] Histology Teacher: Mario Anne MD Antiphospholipid IgM 6.6 MPU Normal <20 [facility] Comment on above: Result Comment: Reference Range: 20.0 - 29.9 Low Positive 30.0 - 79.9 Moderate Positive >79.9 High Positive Performed By: #### C BC #### [facility] [address] [place] [address] Histology Teacher: Mario Anne MD Metabolic Panelon 11-28-2018 GFR/1.73 sq M predicted among non-blacks MDRD (S/P/Bld) [Vol rate/Area] [place] Comment on above: Average GFR for 20-2 9 years old: 116 mL/min/1.73sq m Chronic Kidney Disease: <60 mL/min/1.73sq m Kidney failure: <15 mL/min/1.73sq m eGFR calculated using average adult body mass. Additional eGFR calculator available at: http://www.[employer].com/multiple_crcl_2012.htm Stage 1: Some kidney damage normal GFR Stage 2: Mild kidney damage GFR 60-89 Stage 3: Moderate kidney damage GFR 30-59 Stage 4: Severe kidney damage GFR 15-29 Stage 5: Severe kidney damage GFR <15 ESRD - chronic treatment by dialysis or transplant Microscopic Urinalysison Amorphous, UA NOT REPORTED None [place], [place] Bacteria, UA NOT REPORTED None [place] Casts UA NOT REPORTED /LPF [place] Crystals UA NOT REPORTED None /HPF [facility] [place] Epithelial Cells UA 2 TO 5 [place] Mucus, UA NOT REPORTED None [place] Other Observations UA NOT REPORTED NOT REQ. M [place] RBC (U) [#/Vol] 5 TO 10 [facility] [place] Renal Epithelial, Urine NOT REPORTED 0 /HPF [place] Trichomonas, UA NOT REPORTED None [facility] [place] WBC, UA 10 TO 20 [place] Yeast, UA NOT REPORTED None [place], [place] - [place] Otheron 11-28-2018 Interpretation and review of laboratory results Abnormal [place] PTon 11-28-2018 INR Coag (PPP) [Relative time] 1.3 {INR} High 0.9-1.2 [facility] Comment on above: Performed By: #### L IP, CMPX, PT, CDP, PTT ####[facility] [place] [address] Lab Director: Mario Anne MD PT Coag (PPP) [Time] 13.4 s High 9.7-12.2 [facility] Comment on above: Performed By: #### L IP, CMPX, PT, CDP, PTT ####[facility] [place] [address] Lab Director: Mario Anne MD Parvovirus B19 Panelon 11-28 Parvovirus IgG B19 6.29 IV High <=0.89 [facility] Comment on above: Result Comment: (NOT [...] time. Performed By: #### C BC #### [facility] [address] [place] [address] Histology Teacher: Mario Anne MD Parvovirus IgM B19 0.15 IV Normal <=0.89 [facility] Comment on above: Result Comment: (NOT [...] levels of specific IgM antibodies. Performed by [employer], [address] [place] [id number] www.[email or web address], Fernando Valencia MD, Lab. Director Performed By: #### C BC #### [facility] [address] [place] [address] Histology Teacher: Mario Anne MD Protein C Antigenicon 2018 Protein [Mass/Vol] 83 % Normal 63-153 [facility] Comment on above: Result Comment: (NOT E) INTERPRETIVE INFORMATION: Protein C, Total Antigen Patients on warfarin may have decreased protein C values. Patients should be off warfarin therapy for two weeks for accurate measurement of protein C. Access complete set of age- and/or gender-specific reference intervals for this test in the [facility] Test Directory ([employer]). Performed by [employer], [address] [place] [id number] www[email or web address], Fernando Valencia MD, Lab. Director Performed By: #### C BC #### [facility] [address] [place] [address] Histology Teacher: Mario Anne MD Protein S, Antigenicon 11-28 Protein [Mass/Vol] 71 % Normal 63-126 [facility] Comment on above: Result Comment: (NOT E) INTERPRETIVE INFORMATION: Protein S, Total Antigen Patients on warfarin may have decreased protein S values. Patients should be off warfarin therapy for two weeks for accurate measurement of protein S. Access complete set of age- and/or gender-specific reference intervals for this test in the [facility] Test Directory ([employer]). Performed by [employer], [address] [place] [id number] www[employer], Fernando Valencia MD, Lab. Director Performed By: #### C BC #### [address] [place] [address] Histology Teacher: Mario Anne MD Protime-INRon 11-28-2018 INR Coag (PPP) [Relative time] 1.3 {INR} [place], [place] PT Coag (PPP) [Time] 13.4 s [place], [place] Rubella IgM, Abon 11-28-2018 Rubella IgM, Ab <10.0 Normal <=19.9 [facility] Comment on above: Result Comment: (NOT E) [...] the amount of antibody present. Performed by [employer], [address] [place] [id number] www[employer], Fernando Valencia MD, Lab. Director Performed By: #### C BC #### [address] [place] [address] Histology Teacher: Mario Anne MD Urinalysison 11-28-2018 Bilirubin Urine Negative NEGATIVE [place] Color, UA YELLOW YELLOW [place] Glucose, Ur Negative NEGATIVE [place] Interpretation and review of laboratory results Abnormal [place] Ketones Ql (U) Negative NEGATIVE [place] Leukocyte esterase Test strip Ql (U) SMALL Abnormal NEGATIVE [place] Nitrite, Urine Negative NEGATIVE [place] pH, UA 6.5 [place] Protein (U) [Mass/Vol] TRACE Abnormal NEGATIVE [place] Specific [place], UA 1.020 [place], [place] Turbidity UA CLEAR CLEAR [place] Urinalysis Comments NOT REPORTED [place] Urine Hgb 3+ Abnormal NEGATIVE [place] Urobilinogen, Urine Normal Normal [place] Urinalysis, Routineon 2018 Acetoacetic Acid,Ur Negative Normal NEG [facility] Comment on above: Performed By: #### T YS #### [address] [place] [address] Histology Teacher: Mario Anne MD Bilirubin, SemiQt,Ur Negative Normal NEG [facility] Comment on above: Performed By: #### T YS #### [address] [place] [id number] Histology Teacher: Mario Anne MD Color (U) YELLOW Normal YEL [facility] Comment on above: Performed By: #### T YS #### [facility] [address] [place], [place] [id number] Histology Teacher: Mario Anne MD Glucose Ql (U) Negative Normal NEG [facility] in Hospital Comment on above: Performed By: #### T YS #### [facility] [address] [place], [place] [id number] Histology Teacher: Mario Anne MD Hemoglobin, Ur 3+ Abnormal NEG [facility] Comment on above: Performed By: #### T YS #### [facility] [address] [place], [place] [id number] Histology Teacher: Mario Anne MD Leukocyte esterase Test strip Ql (U) SMALL Abnormal NEG [facility] Comment on above: Performed By: #### T YS #### [facility] [address] [place] [address] [place], [place] [id number] Histology Teacher: Mario Anne MD Nitrite,Ur Negative Normal [facility] Comment on above: Performed By: #### T YS #### [facility] [address] [place], [place] [id number] Histology Teacher: Mario Anne MD pH (U) 6.5 [pH] Normal 5.0-9.0 [facility] Comment on above: Performed By: #### T YS #### [facility] [address] [place], [place] [id number] Histology Teacher: Mario Anne MD Protein Ql (U) TRACE Abnormal NEG [facility] Comment on above: Performed By: #### T YS #### [facility] [address] [place] [address] Histology Teacher: Mario Anne MD Specific gravity (U) [Rel density] 1.020 Normal 1.010-1.020 [facility] Comment on above: Performed By: #### T YS #### [facility] [address] [place], [place] [id number] Histology Teacher: Mario Anne MD Turbidity CLEAR Normal CLEAR [facility] Comment on above: Performed By: #### T YS #### [facility] [address] [place], [facility]83 Histology Teacher: Mario Anne MD Urobilinogen,Ur Normal Normal NORM [facility] Comment on above: Performed By: #### T YS #### [facility] [address] [place] [address] Histology Teacher: Mario Anne MD Comment NOT REPORTED Normal [facility] Comment on above: Performed By: #### T YS #### [facility] [address] [place], [facility]83 Histology Teacher: Mario Anne MD Urinalysis,Microon 9 ----- Normal [facility] Comment on above: Performed By: #### T YS #### [facility] [address] [place], [facility]83 Histology Teacher: Mario Anne MD Epithelial cells LM.HPF (Urine sed) [#/Area] 2 TO 5 Normal 0-25 [facility] Comment on above: Performed By: #### T YS #### [facility] [address] [place], [facility]83 Histology Teacher: Mario Anne MD RBC (U) [#/Vol] 5 TO 10 Normal 0-2 [facility] Comment on above: Performed By: #### T YS #### [facility] [address] [place], [facility]83 Histology Teacher: Mario Anne MD WBC (U) [#/Vol] 10 TO 20 Normal 0-5 [facility] Comment on above: Performed By: #### T YS #### [facility] [address] [place] [address] Histology Teacher: Mario Anne MD Amorphous sediment LM Ql (Urine sed) NOT REPORTED Normal NONE [facility] Comment on above: Performed By: #### T YS #### [facility] [address] [place] [address] Histology Teacher: Mario Anne MD Bacteria LM.HPF (Urine sed) [#/Area] NOT REPORTED Normal NONE [facility] Comment on above: Performed By: #### T YS #### [facility] [address] [place] [address] Histology Teacher: Mario Anne MD Casts LM.LPF (Urine sed) [#/Area] NOT REPORTED Normal [facility] Comment on above: Performed By: #### T YS #### [facility] [address] [place] [address] Histology Teacher: Mario Anne MD Crystals LM Nom (Urine sed) NOT REPORTED Normal [facility] Comment on above: Performed By: #### T YS #### [facility] [address] [place] [address] Histology Teacher: Mario Anne MD Epithelial, Renal NOT REPORTED Normal 0 [facility] Comment on above: Performed By: #### T YS #### [facility] [address] [place] [address] Histology Teacher: Mario Anne MD Mucus Strands NOT REPORTED Normal NONE [facility] Comment on above: Performed By: #### T YS #### [facility] [address] [place] [address] Histology Teacher: Mario Anne MD Other Observations NOT REPORTED Normal NREQ [facility] Comment on above: Performed By: #### T YS #### [facility] [address] [place] [address] Histology Teacher: Mario Anne MD Trichomonas NOT REPORTED Normal NONE [facility] Comment on above: Performed By: #### T YS #### [facility] [address] [place], [place] [id number] Histology Teacher: Mario Anne MD Yeast LM Ql (Urine sed) NOT REPORTED Normal NONE [facility] Comment on above: Performed By: #### T YS #### [facility] [address] [place], [place] 0820983 Histology Teacher: Mario Anne MD Venous Blood Gaseson 019 HCO3 (Bld) [Moles/Vol] 20.5 mmol/L Low 24.0-30.0 [facility] Comment on above: Performed By: #### V BG ####[facility] , [place] [address]83 Lab Director: Mario Anne MD Negative Base Excess 2.9 mmol/L High 0.0-2.0 [facility] Comment on above: Performed By: #### V BG ####[facility] , [place] 6[address]1883 Lab Director: Mario Anne MD Oxygen (Bld) [Partial pressure] 22.2 mm[Hg] Low 30.0-50.0 [facility] Comment on above: Performed By: #### V BG ####[facility] , [place] [address]83 [facility] Director: Mario Anne MD Oxygen saturation in Blood 40.2 % Low 60.0-85.0 [facility] Comment on above: Performed By: #### V BG ####[facility] [place] [address] Lab Director: Mario Anne MD pCO2 31.9 Low 39-55 [facility] Comment on above: Performed By: #### V BG ####[facility] [place] [address] Lab Director: Mario Anne MD pH (Bld) 7.425 [pH] High 7.32-7.42 [facility] Comment on above: Performed By: #### V BG ####[address] [place] [address] Lab Director: Mario Anne MD Marco Test NOT REPORTED Normal [facility] Comment on above: Performed By: #### V BG ####[address] [place] [address] Lab Director: Mario Anne MD Body Temp. NOT REPORTED Normal [facility] Comment on above: Performed By: #### V BG ####[address] [place] [address] Lab Director: Mario Anne MD Carboxy Hgb NOT REPORTED Normal 0-5 [facility] Comment on above: Performed By: #### V BG ####[address] , [place] 2255283 Lab Director: Mario Anne MD FIO2 NOT REPORTED Normal [facility] Comment on above: Performed By: #### V BG ####[address] [place] [address] Lab Director: Mario Anne MD Methemoglobin NOT REPORTED Normal 0.0-1.9 [facility] Comment on above: Performed By: #### V BG ####[address] [place] [address] Lab Director: Mario Anne MD Mode NOT REPORTED Normal [facility] Comment on above: Performed By: #### V BG ####[address] [place] [address] Lab Director: Mario Anne MD Notification Time NOT REPORTED Normal [facility] Comment on above: Performed By: #### V BG ####[address] , [place] [id number] Lab Director: Mario Anne MD Notification: NOT REPORTED Normal [facility] Comment on above: Performed By: #### V BG ####[address] , [place] 1443983 Lab Director: Mario Anne MD O2 Device/Flow/% NOT REPORTED Normal [facility] Comment on above: Performed By: #### V BG ####[address] , [place] [id number] Lab Director: Mario Anne MD Oxyhemoglobin NOT REPORTED Normal 95.0-98.0 [facility] Comment on above: Performed By: #### V BG ####[address] [place] [address] Lab Director: Mario Anne MD Pco2 Adj'd for Temp. NOT REPORTED Normal 39.0-55.0 [facility] Comment on above: Performed By: #### V BG ####[address] [place] [address] Lab Director: Mario Anne MD PEEP/CPAP NOT REPORTED Normal [facility] Comment on above: Performed By: #### V BG ####[address] [place] [address] Lab Director: Maroi Anne MD pH Adjst'd for Temp. NOT REPORTED Normal 7.320-7.420 M [facility] Comment on above: Performed By: #### V BG ####[address] [place] [address] Lab Director: Mario Anne MD pO2 Adj'd for Temp. NOT REPORTED Normal 30.0-50.0 [facility] Comment on above: Performed By: #### V BG ####[address] , [place] [id number] Lab Director: Mario Anne MD Positive Base Excess NOT REPORTED Normal 0.0-2.0 [facility] Comment on above: Performed By: #### V BG ####[facility] [place] [address] Lab Director: Mario Anne MD PSV NOT REPORTED Normal [facility] Comment on above: Performed By: #### V BG ####[facility] [place] , [place] 5342583 Lab Director: Mario Anne MD Pt. Position NOT REPORTED Normal [facility] Comment on above: Performed By: #### V BG ####[facility] [place] , [place] 1632983 Lab Director: Mario Anne MD Set Rate NOT REPORTED Normal [facility] Comment on above: Performed By: #### V BG ####[address] , [place] [id number] Lab Director: Mario Anne MD Site Drawn NOT REPORTED Normal [facility] Comment on above: Performed By: #### V BG ####[address] , [place] [id number] Lab Director: Mario Anne MD Text for Respiratory NOT REPORTED Normal [facility] Comment on above: Performed By: #### V BG ####[facility] [place] , [place] [address]1983 Lab Director: Mario Anne MD Total Hb NOT REPORTED Normal 12.0-16.0 [facility] Comment on above: Performed By: #### V BG ####[address] [place] [address] Lab Director: Mario Anne MD Total Rate NOT REPORTED Normal [facility] Comment on above: Performed By: #### V BG ####[address] [place] [address] lab Director: Mario Anne MD VT NOT REPORTED Normal [facility] Comment on above: Performed By: #### V BG ####[facility] [place] , [place] [id number] lab Director: Mario Anne MD XR CHEST [...] Matt Mayer MD 11/28/18 Final result Normal [facility] Cardiomegaly and congestion magnified by technique. No airspace consolidation. [place], [place] Bon[place], M[facility]pn Incoming Radiant Results From [employer] - 11/28/2018 8:56 PM EDT EXAMINATION: ONE XRAY VIEW OF THE CHEST 11/28/2018 7:38 pm COMPARISON: None. HISTORY: ORDERING SYSTEM PROVIDED HISTORY: R/O PNA TECHNOLOGIST PROVIDED HISTORY: R/O PNA FINDINGS: Mild congestion, likely magnified by technique. No airspace consolidation, effusion, or pneumothorax. Borderline cardiomegaly. IMPRESSION: Cardiomegaly and congestion magnified by technique. No airspace consolidation. [place] EXAMINATION: ONE XRA Y VIEW OF THE CHEST 11/28/2018 7:38 pm COMPARISON: None. HISTORY: ORDERING SYSTEM PROVIDED HISTORY: R/O PNA TECHNOLOGIST PROVIDED HISTORY: R/O PNA FINDINGS: Mild congestion, likely magnified by technique. No airspace consolidation, effusion, or pneumothorax. Borderline cardiomegaly. [place] CMV Ab,IgGon 11-27-2018 CMV Ab,IgG 0.1 Normal <0.9 [facility] Comment on above: Result Comment: Reference [...] FA2, MATIAS, TOXOG, HSVM12, CMVG, FA5 #### [address] [address] Histology Teacher: Geo Mar MD #### CBC, FIB #### [address] [place] [address] Histology Teacher: Mario Anne MD #### APROTS, APARVP, APROTC, ARUBGM #### [facility] [address] [place] [address] Histology Teacher: Fernando Valencia MD #### LUPPRO #### [address] [id number] Histology Teacher: Geo Mar MD [address] [place] [address] Histology Teacher: Mario Anne MD CMV Ab,IgMon 11-27-2018 CMV Ab,IgM 0.4 Normal <0.9 [facility] Comment on above: Result Comment: Reference [...] findings. Performed By: #### C BC #### [facility] [address] [place] [address] [place] [address] Histology Teacher: Mario Anne MD CBCon 11-25-2018 Erythrocyte distribution width (RBC) [Ratio] 13.2 % Normal 11.8-14.4 [facility] Comment on above: Performed By: #### T OXOM, HSVG12, CMVM, FA2, MATIAS, TOXOG, HSVM12, CMVG, FA5 #### [address] [address] Histology Teacher: Geo Mar MD #### CBC, FIB #### [address] [place], [place] [id number] Histology Teacher: Mario Anne MD #### APROTS, APARVP, APROTC, ARUBGM #### [facility] [address] [place], [place] [id number] Histology Teacher: Fernando Valencia MD #### LUPPRO #### [address] [address] Histology Teacher: Geo Mar MD [address] [place] [id number] Histology Teacher: Mario Anne MD Hematocrit (Bld) [Volume fraction] 30.4 % Low 36.3-47.1 [facility] Comment on above: Performed By: #### T OXOM, HSVG12, CMVM, FA2, MATIAS, TOXOG, HSVM12, CMVG, FA5 #### [address] [address] Histology Teacher: Geo Mar MD #### CBC, FIB #### [address] [place], [place] 7914183 Histology Teacher: Mario Anne MD #### APROTS, APARVP, APROTC, ARUBGM #### [facility] [address] [place], [place] [id number] Histology Teacher: Fernando Valencia MD #### LUPPRO #### [address] [address] Histology Teacher: Geo Mar MD [address] [place] [address] Histology Teacher: Mario Anne MD Hemoglobin (Bld) [Mass/Vol] 9.7 g/dL Low 11.9-15.1 [facility] Comment on above: Performed By: #### T OXOM, HSVG12, CMVM, FA2, MATIAS, TOXOG, HSVM12, CMVG, FA5 #### [facility] [address] [place] [address] Histology Teacher: Geo Mar MD #### CBC, FIB #### [address] [place] [id number] Histology Teacher: Mario Anne MD #### APROTS, APARVP, APROTC, ARUBGM #### [facility] [address] [place] [address] Histology Teacher: Fernando Valencia MD #### LUPPRO #### [address] [id number] Histology Teacher: Geo Mar MD [address] [place] [id number] Histology Teacher: Mario Anne MD MCH (RBC) [Entitic mass] 28.2 pg Normal 25.2-33.5 [facility] Comment on above: Performed By: #### T OXOM, HSVG12, CMVM, FA2, MATIAS, TOXOG, HSVM12, CMVG, FA5 #### [address] [id number] Histology Teacher: Geo Mar MD #### CBC, FIB #### [address] [place] [address] Histology Teacher: Mario Anne MD #### APROTS, APARVP, APROTC, ARUBGM #### [facility] [address] [place] [address] Histology Teacher: Fernando Valencia MD #### LUPPRO #### [address] [address] Histology Teacher: Geo Mar MD [address] [place] [id number] Histology Teacher: Mario Anne MD MCHC (RBC) [Mass/Vol] 31.9 g/dL Normal 28.4-34.8 [facility] Comment on above: Performed By: #### T OXOM, HSVG12, CMVM, FA2, MATIAS, TOXOG, HSVM12, CMVG, FA5 #### [address] [address] Histology Teacher: Geo Mar MD #### CBC, FIB #### [address] [place] [id number] Histology Teacher: Mario Anne MD #### APROTS, APARVP, APROTC, ARUBGM #### [facility] [address] [place] [address] Histology Teacher: Fernando Valencia MD #### LUPPRO #### [address] [address] Histology Teacher: Geo Mar MD [address] [place] [id number] Histology Teacher: Mario Anne MD MCV (RBC) [Entitic vol] 88.4 fL Normal 82.6-102.9 [facility] Comment on above: Performed By: #### T OXOM, HSVG12, CMVM, FA2, MATIAS, TOXOG, HSVM12, CMVG, FA5 #### [address] [address] Histology Teacher: Geo Mar MD #### CBC, FIB #### [address] [place], [place] 9529383 Histology Teacher: Mario Anne MD #### APROTS, APARVP, APROTC, ARUBGM #### [facility] [address] [place], [place] [id number] Histology Teacher: Fernando Valencia MD #### LUPPRO #### [address] [address] Histology Teacher: Geo Mar MD [address] [place] [id number] Histology Teacher: Mario Anne MD NRBC Automated 0.0 per 100 WBC Normal 0.0 [facility] Comment on above: Performed By: #### T OXOM, HSVG12, CMVM, FA2, MATIAS, TOXOG, HSVM12, CMVG, FA5 #### [address] [address] Histology Teacher: Geo Mar MD #### CBC, FIB #### [address] [place], [facility]83 Histology Teacher: Mario Anne MD #### APROTS, APARVP, APROTC, ARUBGM #### [facility] [address] [place], [place] [id number] Histology Teacher: Fernando Valencia MD #### LUPPRO #### [address] [address] Histology Teacher: Geo Mar MD [address] [place] [address] Histology Teacher: Mario Anne MD Platelet mean volume (Bld) [Entitic vol] 10.4 fL Normal 8.1-13.5 [facility] Comment on above: Performed By: #### T OXOM, HSVG12, CMVM, FA2, MATIAS, TOXOG, HSVM12, CMVG, FA5 #### [address] [address] Histology Teacher: Geo Mar MD #### CBC, FIB #### [address] [place] [address] Histology Teacher: Mario Anne MD #### APROTS, APARVP, APROTC, ARUBGM #### [facility] [address] [place] [address] Histology Teacher: Fernando Valencia MD #### LUPPRO #### [address] [address] Histology Teacher: Geo Mar MD [address] [place] [address] Histology Teacher: Mario Anne MD Platelets (Bld) [#/Vol] 247 10*3/uL Normal 138-453 [facility] Comment on above: Performed By: #### T OXOM, HSVG12, CMVM, FA2, MATIAS, TOXOG, HSVM12, CMVG, FA5 #### [address] [address] Histology Teacher: Geo Mar MD #### CBC, FIB #### [address] [place], [place] [id number] Histology Teacher: Mario Anne MD #### APROTS, APARVP, APROTC, ARUBGM #### [facility] [address] [place] [address] Histology Teacher: Fernando Valencia MD #### LUPPRO #### [address] [address] Histology Teacher: Geo Mar MD [address] [place], [place] [id number] Histology Teacher: Mario Anne MD RBC (Bld) [#/Vol] 3.44 10*6/uL Low 3.95-5.11 [facility] Comment on above: Performed By: #### T OXOM, HSVG12, CMVM, FA2, MATIAS, TOXOG, HSVM12, CMVG, FA5 #### [address] [address] Histology Teacher: Geo Mar MD #### CBC, FIB #### [address] [place] [address] Histology Teacher: Mario Anne MD #### APROTS, APARVP, APROTC, ARUBGM #### [facility] [address] [place] [address] Histology Teacher: Fernando Valencia MD #### LUPPRO #### [address] [address] Histology Teacher: Geo Mar MD [address] [place] [id number] Histology Teacher: Mario Anne MD WBC (Bld) [#/Vol] 13.1 10*3/uL High 3.5-11.3 [facility] Comment on above: Performed By: #### T OXOM, HSVG12, CMVM, FA2, MATIAS, TOXOG, HSVM12, CMVG, FA5 #### [address] [address] Histology Teacher: Geo Mar MD #### CBC, FIB #### [address] [place], [place] 19[address]83 Histology Teacher: Mario Anne MD #### APROTS, APARVP, APROTC, ARUBGM #### [facility] [address] [place] [address] Histology Teacher: Fernando Valencia MD #### LUPPRO #### [address] [address] Histology Teacher: Geo Mar MD [facility] [address] [place], [place] [id number] Histology Teacher: Mario Anne MD Drug Scr, Abuse, Uron 2018 Amphetamine(s),Ur Negative Normal [facility] Comment on above: Performed By: #### D AU ####[facility] , [facility]83 [facility] Director: Mario Anne MD Barbiturate(s),Ur Negative Normal NEG [facility] Comment on above: Performed By: #### D AU ####[address] [place], [place] [id number] [facility] Director: Mario Anne MD Base excess Calc (Bld) [Moles/Vol] Negative Normal [facility] Comment on above: Performed By: #### D AU ####[address] , [facility]83 [facility] Director: Mario Anne MD Benzodiazepine(s) Negative Normal [facility] Comment on above: Performed By: #### D AU ####[address] , [facility]83 [facility] Director: Mario Anne MD Buprenorphrine, Ur Negative Normal [facility] Comment on above: Performed By: #### D AU ####[address] , [facility]83 [facility] Director: Mario Anne MD Cannabinoid(s),Ur Negative Normal [facility] Comment on above: Performed By: #### D AU ####[address] , [place] [id number] Lab Director: Mario Anne MD Methadone Ql (U) Negative Normal NEG [facility] Comment on above: Performed By: #### D AU ####[address] [place] [address] Lab Director: Mario Anne MD Methamphetamine, Ur Negative Normal NEG [facility] Comment on above: Performed By: #### D AU ####[facility] [place] [address] Lab Director: Mario Anne MD Opiate(s), Ur Negative Normal NEG [facility] Comment on above: Performed By: #### D AU ####[address] [place] [address] Lab Director: Mario Anne MD Oxycodone, Urine Negative Normal NEG [facility] Comment on above: Performed By: #### D AU ####[address] [place] [address] Lab Director: Mario Anne MD Phencyclidine, Ur Negative Normal NEG [facility] Comment on above: Performed By: #### D AU ####[address] [place] [address] Lab Director: Mario Anne MD Propoxyphene,Urine Negative Normal NEG [facility] Comment on above: Performed By: #### D AU ####[address] [place] [address] Lab Director: Mario Anne MD Tricyclic antidepressants Screen Ql (U) Negative [facility] Comment on above: Result Comment: Drug screen results are to be used for medical purposes only. All positive results are unconfirmed. Testing for employment or legal uses should be sent to a reference laboratory for confirmation. Performed By: #### D AU ####[address] , [place] [id number] Lab Director: Mario Anne MD Interpretive Info NOT REPORTED [facility] Comment on above: Performed By: #### D AU ####[address] [id number] Lab Director: Mario Anne MD MDMA, Urine NOT REPORTED Normal NEG [facility] Comment on above: Performed By: #### D AU ####[facility] [place], [place] 1124483 Lab Director: Mario Anne MD Fibrinogenon 11-25-2018 Fibrinogen 465 mg/dL High 185-451 [facility] Comment on above: Performed By: #### T OXOM, HSVG12, CMVM, FA2, MATIAS, TOXOG, HSVM12, CMVG, FA5 #### [facility] [address] [place], [place] [phone] Histology Teacher: Geo Mar MD #### CBC, FIB #### [facility] [address] [place] [address] Histology Teacher: Mario Anne MD #### APROTS, APARVP, APROTC, ARUBGM #### [facility] [address] [place] [address] Histology Teacher: Fernando Valencia MD #### LUPPRO #### [facility] [address] [place] [address] [id number] Histology Teacher: Geo Mar MD [address] [place] [phone] Histology Teacher: Mario Anne MD Hgb/Hcton 11-25-2018 Hematocrit (Bld) [Volume fraction] 30.4 % Low 36.3-47.1 [facility] Comment on above: Performed By: #### H H ####[address] [place] [id number] Lab Director: Mario Anne MD Hemoglobin (Bld) [Mass/Vol] 9.8 g/dL Low 11.9-15.1 [facility] Comment on above: Performed By: #### H H ####[address] , [facility]83 Lab Director: Mario Anne MD Lupus Anticoagulanton 2018 aPTT Coag (Bld) [Time] 27.1 s Normal 23.2-34.4 [facility] Comment on above: Performed By: #### C BC #### [facility] [address] [place] [address] Dr. [place], [facility]83 Histology Teacher: Mario Anne MD INR Coag (PPP) [Relative time] 0.9 {INR} Normal 0.9-1.2 [facility] Comment on above: Performed By: #### C BC #### [address] [place] [address] Histology Teacher: Mario Anne MD PT Coag (PPP) [Time] 9.7 s Normal 9.7-12.2 [facility] Comment on above: Performed By: #### C BC #### [address] [place] [id number] Histology Teacher: Mario Anne MD Lupus Anticoagulant NOT REPORTED Normal [facility] Comment on above: Performed By: #### C BC #### [address] [place] [phone] Histology Teacher: Mario Anne MD Rubella Ab, IgGon 11-25-2018 Rubella Ab, IgG 27.5 IU/mL Normal [facility] Comment on above: Result Comment: REFERENCE RANGE: <5.0 NON-REACTIVE (non-immune) 5.0 TO 9.9 EQUIVOCAL >=10.0 REACTIVE (immune) Performed By: #### T OXOM, HSVG12, CMVM, FA2, MATIAS, TOXOG, HSVM12, CMVG, FA5 #### [address] [address] Histology Teacher: Geo Mar MD #### CBC, FIB #### [facility] [address] [place] [address] Dr. [place], [facility]83 Histology Teacher: Mario Anne MD #### APROTS, APARVP, APROTC, ARUBGM #### [facility] [address] [place] [address] Histology Teacher: Fernando Valencia MD #### LUPPRO #### [facility] [address] [place], [place] [phone] Histology Teacher: Geo Mar MD [facility] [address] [place] [address] Histology Teacher: Mario Anne MD Surgical Pathologyon 019 Surgical Pathology (NOTE) [id number] [facility] CONSULTING PATHOLOGISTS [facility] [address] [place] [id number] SURGICAL PATHOLOGY CONSULTATION Patient Name: DEION CUMMINGS [facility] Rec: [id number] Path Number: [id number] Collected: 11/25/2018 Received: 11/29/2018 Reported: 11/30/2018 16:37 [...] villous capillaries: Rare Other: Few microcalcifications Normal [facility] Comment on above: Performed By: #### T OXOM, HSVG12, CMVM, FA2, MATIAS, TOXOG, HSVM12, CMVG, FA5 #### [facility] [address] [place] [address] Histology Teacher: Geo Mar MD #### CBC, FIB #### [facility] [address] [place] [address] Histology Teacher: Mario Anne MD #### APROTS, APARVP, APROTC, ARUBGM #### [facility] [address] [place] [address] Histology Teacher: Fernando Valencia MD #### LUPPRO #### [facility] [address] [place] [address] Histology Teacher: Geo Mar MD [address] [place] [address] Histology Teacher: Mario Anne MD Thyroid Stim. Horm.on 2018 TSH Qn 1.78 m[IU]/L Normal 0.30-5.00 [facility] Comment on above: Performed By: #### T SH ####[address] [place] [address] Lab Director: Mario Anne MD Toxoplasma Ab,IgGon 11-26-19 19 Toxoplasma Ab,IgG <0.5 Normal [facility] Comment on above: Result Comment: REFERENCE RANGE: [...] FA2, MATIAS, TOXOG, HSVM12, CMVG, FA5 #### [address] [address] Histology Teacher: Geo Mar MD #### CBC, FIB #### [address] [place] [phone] Histology Teacher: Mario Anne MD #### APROTS, APARVP, APROTC, ARUBGM #### [facility] [address] [place] [address] Histology Teacher: Fernando Valencia MD #### LUPPRO #### [address] [address] Histology Teacher: Geo Mar MD [address] [place] [phone] Histology Teacher: Mario Anne MD Toxoplasma Ab,IgMon 11-26-19 19 Toxoplasma Ab,IgM 0.55 Index Normal [facility] Comment on above: Result Comment: REFERENCE RANGE: <0.90 NON-REACTIVE 0.90 TO 1.00 INDETERMINANT >=1.10 REACTIVE Performed By: #### T OXOM, HSVG12, CMVM, FA2, MATIAS, TOXOG, HSVM12, CMVG, FA5 #### [address] [address] Histology Teacher: Geo Mar MD #### CBC, FIB #### [address] [place], [place] [id number] Histology Teacher: Mario Anne MD #### APROTS, APARVP, APROTC, ARUBGM #### [facility] [address] [place] [address] Histology Teacher: Fernando Valencia MD #### LUPPRO #### [place] [address] [place], [place] [id number] Histology Teacher: Geo Mar MD [facility] [address] [place], [place] [id number] Histology Teacher: Mario Anne MD Type + Screenon 11-25-2018 Type + Screen Sample Expiration 11/28/2018 Arm Band Number [id number] ABO/Rh(D) O POSITIVE Antibody Screen NEGATIVE Normal [facility] Comment on above: Performed By: #### T YS ####[address] [place] [address] Lab Director: Mario Anne MD CBCon 11-24-2018 Erythrocyte distribution width (RBC) [Ratio] 13.2 % Normal 11.8-14.4 [facility] Comment on above: Performed By: #### C BC #### [address] [place], [place] [phone] Histology Teacher: Mario Anne MD Hematocrit (Bld) [Volume fraction] 31.6 % Low 36.3-47.1 [facility] Comment on above: Performed By: #### C BC #### [address] [place] [address] Histology Teacher: Mario Anne MD Hemoglobin (Bld) [Mass/Vol] 10.1 g/dL Low 11.9-15.1 [facility] Comment on above: Performed By: #### C BC #### [address] [place], [place] 2763783 Histology Teacher: Mario Anne MD MCH (RBC) [Entitic mass] 28.1 pg Normal 25.2-33.5 [facility] Comment on above: Performed By: #### C BC #### [facility] [address] [place] [address] Histology Teacher: Mario Anne MD MCHC (RBC) [Mass/Vol] 32.0 g/dL Normal 28.4-34.8 [facility] Comment on above: Performed By: #### C BC #### [facility] [address] [place], [place] 197[address] Histology Teacher: Mario Anne MD MCV (RBC) [Entitic vol] 88.0 fL Normal 82.6-102.9 [facility] Comment on above: Performed By: #### C BC #### [facility] [address] [place] [address] Histology Teacher: Mario Anne MD NRBC Automated 0.0 per 100 WBC Normal 0.0 [facility] Comment on above: Performed By: #### C BC #### [facility] [address] [place], [facility]83 Histology Teacher: Mario Anne MD Platelet mean volume (Bld) [Entitic vol] 10.1 fL Normal 8.1-13.5 [facility] Comment on above: Performed By: #### C BC #### [facility] [address] [place], [facility]83 Histology Teacher: Mario Anne MD Platelets (Bld) [#/Vol] 246 10*3/uL Normal 138-453 [facility] Comment on above: Performed By: #### C BC #### [facility] [address] [place], [facility]83 Histology Teacher: Mario Anne MD RBC (Bld) [#/Vol] 3.59 10*6/uL Low 3.95-5.11 [facility] Comment on above: Performed By: #### C BC #### [facility] [address] [place], [place] [id number] Histology Teacher: Mario Anne MD WBC (Bld) [#/Vol] 10.7 10*3/uL Normal 3.5-11.3 [facility] Comment on above: Performed By: #### C BC #### [facility] [address] [place] [address] Histology Teacher: Mario Anne MD Type + Screenon 11-24-2018 Type + Screen Sample Expiration 11/27/2018 Arm Band Number [id number] ABO/Rh(D) O POSITIVE Antibody Screen NEGATIVE Normal [facility] Comment on above: Performed By: #### T YS #### [facility] [address] [place] [address] Histology Teacher: Mario Anne MD US OB 14 PLUS [...] Luis Adam MD 11/24/18 Final result Normal [facility] US OB TRANSVAGINALon 019 US OB [...] Yolk Sac: Not visualized Pole: Single pole [place] Rump Length: 7.11 cm Heart Rate: 145 [...] Grzegorz Vicente MD 09/30/18 Final result Normal [facility] ABO/Rhon 09-17-2018 ABO and Rh group Nom (Bld) O Positive [facility] HCG (QUANTITATIVE)on 019 Beta HCG ( test) Ql (U) Males and non females: <5 mIU/mL Females during : 3-4 weeks 9-130 mIU/mL 4-5 weeks 75-2600 mIU/mL 5-6 weeks 850-20,800 mIU/mL 6-7 weeks 4000-100,200 mIU/mL 7-12 weeks 11,500-289,000 mIU/mL 12-16 weeks 18,300-137,000 mIU/mL 16-29 weeks 1,400-53,000 mIU/mL 29-41 weeks 940-60,000 mIU/mL [facility] [place] [place] [address] m[IU]/mL High [facility] Interpretation and review of laboratory results Abnormal [facility] Vital Signs Date Time Vital Sign Value Performing Clinician Facility 02-04-2024 14:24-0500 Body height 177.8 cm [facility] 02-04-2024 14:24-0500 Body mass index (BMI) [Ratio] 67 kg/m2 [facility] 02-04-2024 14:24-0500 Body temperature 99.3 [degF] [facility] 02-04-2024 14:24-0500 Body weight 211.94 kg [facility] 02-04-2024 14:24-0500 Diastolic blood pressure 83 mm[Hg] [facility] 02-04-2024 14:24-0500 Heart rate 106 /min [facility] 02-04-2024 14:24-0500 Respiratory rate 20 /min [facility] 02-04-2024 14:24-0500 SaO2% (BldA) [Mass fraction] 98 % [facility] 02-04-2024 14:24-0500 Systolic blood pressure 135 mm[Hg] [facility] 11-30-2018 08:46-0400 Body Temperature 97.9 [degF] [place], [place] 11-30-2018 08:46-0400 BP Diastolic 85 mm[Hg] [facility] [place] 11-30-2018 08:46-0400 BP Systolic 133 mm[Hg] [facility] [place] 11-30-2018 08:46-0400 Pulse (Heart Rate) 80 /min [place] 11-30-2018 08:46-0400 Pulse Oximetry 99 % [facility] [place] 11-30-2018 08:46-0400 Respiratory Rate 18 /min [facility] [place] 11-30-2018 04:30-0400 BMI (Body Mass Index) 54.64 kg/m2 [facility] 11-30-2018 04:30-0400 Body weight 167.83 kg [facility] [place] 11-29-2018 08:35-0400 Height 175.3 cm [place], [place] 11-28-2018 21:40-0400 Respiratory rate NOT REPORTED [facility] Comment on above: Performed By: #### VBG ####[facility] , [place] [id number] lab Director: Mario Anne MD 11-28-2018 19:51-0400 Respiratory rate NOT REPORTED Art Ugarte [facility] [place] 09-17-2018 00:04-0400 BMI (Body Mass Index) 54.93 kg/m2 [facility] 09-17-2018 00:04-0400 Body Temperature 98.29 [degF] [facility] 09-17-2018 00:04-0400 Body weight 168.74 kg [facility] 09-17-2018 00:04-0400 BP Diastolic 91 mm[Hg] [facility] 09-17-2018 00:04-0400 BP Systolic 170 mm[Hg] [facility] 09-17-2018 00:04-0400 Height 175.3 cm [facility] 09-17-2018 00:04-0400 Pulse (Heart Rate) 95 /min [facility] 09-17-2018 00:04-0400 Pulse Oximetry 98 % [facility] 09-17-2018 00:04-0400 Respiratory Rate 16 /min [facility] Encounters Encounter Date Encounter Type Care Provider Facility Start: 06-07-2024 End: 06-07-2024 Emergency department patient visit MIKE OSULLIVAN [facility] Start: 05-30-2024 End: 05-30-2024 ambulatory MIKE OSULLIVAN Not Available Start: 02-04-2024 End: 02-04-2024 ambulatory [facility] Work Phone: Start: 02-04-2024 End: 02-04-2024 Patient encounter procedure [facility] Work Phone: Start: 08-08-2023 End: 08-09-2023 ambulatory Wolf Mendosa MD Facility: [facility] Start: 07-25-2023 End: 07-26-2023 ambulatory Wolf Mendosa MD Facility:[facility] Start: 07-11-2023 End: 07-12-2023 ambulatory Wolf Mendosa MD Facility:[facility] Start: 06-23-2022 ambulatory MIKE HOY Facility:H 1 [...] Facility:[facility]1 Start: 04-29-2021 End: 04-30-2021 ambulatory VADIM [facility] Start: 04-29-2021 End: 04-29-2021 Subsequent hospital visit by physician Mike Osullivan MD Work Phone: [facility] [place] [facility] Comment on above: Abnormal menstrual p eriods Start: 04-08-2020 End: 04-08-2020 Subsequent hospital visit by physician Mike Osullivan [facility] [place] [facility] Start: 11-28-2018 End: 11-30-2018 Evaluation and management of inpatient [facility] Start: 11-28-2018 End: 11-30-2018 Evaluation and management of inpatient Art Ugarte Work Phone: [facility] Comment on above: Sepsis, due to unspe cified organism (HCC) (Primary Dx) Start: 11-24-2018 End: 11-25-2018 Evaluation and management of inpatient [facility] Start: 09-30-2018 End: 09-30-2018 Patient encounter procedure [facility] Start: 09-17-2018 End: 09-17-2018 Emergency department patient visit JENNIFER VIVAR [facility] Start: 09-17-2018 End: 09-17-2018 Emergency department patient visit Jennifer Vivar Work Phone: [facility] Comment on above: Vaginal bleeding in (Primary Dx) Procedures Date Procedure Procedure Detail Performing Clinician Start: 04-29-2021 Gonadotropin chorionic quantitative Vadim Joyce [employer] Work Phone: Start: 04-08-2020 Assay of insulin [...] OSULLIVAN Start: 11-30-2018 Blood count complete automated IMKE H OY Start: 11-30-2018 Drug screen quantitative vancomycin MIKE OSULLIVAN Start: 11-30-2018 Blood count complete auto&auto difrntl wbc Marciano Griffin Work Phone: Start: 11-30-2018 Blood count complete automated Marciano Craig Work Phone: Start: 11-30-2018 Drug screen quantitative vancomycin Brenton Horton Work Phone: Start: 11-29-2018 Dup-scan xtr veins complete bilateral study MIKE HOEnid Start: 11-29-2018 Culture bacterial blood aerobic w/id isolates MIKE HOY Start: 11-29-2018 INITIATE OXYGEN THERAPY PROTOCOL MIKE HOY Start: 11-29-2018 AMBULATE IN [place] MIKE OSULLIVAN Start: 11-29-2018 Dup-scan xtr veins complete bilateral study Marciano Monreal [place] Work Phone: Start: 11-29-2018 IP CONSULT TO SPIRITUAL SERVICES MIKE OSULLIVAN Start: 11-29-2018 Assay of magnesium MIKE HOY Start: 11-29-2018 Blood count complete auto&auto difrntl wbc MIKE HOY Start: 11-29-2018 Blood count complete automated MIKE H OY Start: 11-29-2018 Assay of magnesium Brenton Horton Work Phone: Start: 11-29-2018 Blood count complete auto&auto difrntl wbc Brenton Horton Work Phone: Start: 11-29-2018 Blood count complete automated Brenton Horton Work Phone: Start: 11-29-2018 DIET GENERAL MIKE OSULLIVAN Start: 11-29-2018 FULL CODE MIKE HOEnid Start: 11-29-2018 INITIATE OXYGEN THERAPY PROTOCOL MIKE HOEnid Start: 11-29-2018 IP CONSULT TO CASE MANAGEMENT MIKE RAMIREZ Y Start: 11-29-2018 IP CONSULT TO [employer]ING MIKE OSULLIVAN Start: 11-29-2018 NOTIFY PHYSICIAN (SPECIFY) MIKE HOEnid Start: 11-29-2018 PHARMACY TO DOSE VANCOMYCIN MIKE HOEnid Start: 11-29-2018 PULSE OXIMETRY SPOT CHECK MIKE HOY Start: 11-29-2018 REASON FOR NO MECHANICAL VTE PROPHYLAXIS MIKE HOY Start: 11-29-2018 TOBACCO CESSATION EDUCATION MIKE HOY Start: 11-29-2018 VITAL SIGNS MIKE HOY Start: 11-29-2018 PATIENT STATUS (FROM ED OR OR/PROCEDURAL) MIKE HOY Start: 11-29-2018 Us pelvic nonobstetric real-time image complete MIKE HOY Start: 11-28-2018 PULSE OXIMETRY SPOT CHECK Brenton Marco A medeiros Work Phone: Start: 11-28-2018 Culture bacterial [...] 11-28-2018 Blood count complete auto&auto difrntl wbc [employer] Work Phone: Start: 11-28-2018 Prothrombin time [employer] Work Phone: Start: 11-28-2018 Thromboplastin time partial plasma/whole blood [employer] Work Phone: Start: 11-28-2018 Blood gases any combination ph pco2 po2 co2 hco3 [employer] Work Phone: Start: 11-28-2018 Culture bacterial blood aerobic w/id isolates [employer] Work Phone: Start: 11-28-2018 LACTATE, SEPSIS [employer] Work Phone: Start: 11-25-2018 HEMOGLOBIN AND HEMATOCRIT, [...] Start: 08-18-2018 C. TRACHOMATIS, EXTERNAL RESULT MIKE HOEnid Start: 08-18-2018 HEPATITIS B, EXTERNAL RESULT MIKE HOEnid Start: 08-18-2018 HIV, EXTERNAL RESULT MIKE HOY Start: 08-18-2018 N. GONORRHOEAE, EXTERNAL RESULT MIKE HOY Start: 08-18-2018 RPR, EXTERNAL RESULT MIKE HOY Start: 08-18-2018 RUBELLA TITER, EXTERNAL RESULT MIKE H OY Plan of Treatment Date Care Activity Detail Author Start: 11-19-2020 Influenza vaccination Flu vaccine (# 1) [facility] Start: 11-20-2019 Influenza vaccination Flu vaccine (# 1) [place] Start: 11-19-2018 Influenza vaccination Flu vaccine (# 1) [place] Start: 2014 Cervical cancer screen [facility] [place] Start: 2014 Screening for malign ant neoplasm of cervix [facility] Start: 2012 DTaP/Tdap/Td vaccine (1 - Tdap) DTaP/Tdap/Td vaccine (1 - Tdap) [facility] Start: 2008 HIV screen HIV screen [place], [place] Start: 2008 HIV screening HIV screen [facility] Start: 2008 HPV vaccine (1 - Fem killian 3-dose series) HPV vaccine (1 - Female 3-dose series) [place], [place] Start: 2006 Varicella Vaccine (1 of 2 - 13+ 2-dose series) Varicella Vaccine (1 of 2 - 13+ 2-dose series) [place] Start: 2005 Depression Screen Depression Screen [facility] Start: 1999 Pneumococcal 0-64 ye ars Vaccine (1 of 1 - PPSV23) Pneumococcal 0-64 years Vaccine (1 of 1 - PPSV23) [place] Start: 1999 Pneumococcal 0-64 ye ars Vaccine (1 of 2 - PPSV23) Pneumococcal 0-64 years Vaccine (1 of 2 - PPSV23) [facility] Start: 1998 COVID-19 Vaccine (1) COVID-19 Vaccin e (1) [facility] Start: 1994 Varicella vaccine (1 of 2 - 2-dose childhood series) Varicella vaccine (1 of 2 - 2-dose childhood series) [facility] Start: 1993 Hepatitis C screening Hepatitis C al reen [facility] Bacteria identified Cx Nom (U) Urine Culture Microbiology STAT 11/28/2018 9:39 PM EDT [place] CBC CBC Lab Routine Daily until discontinued starting 11/30/2018, 1 completed [place] Comment on above: Daily until disconti nued starting 11/30/2018, 1 completed Comprehensive Metabo lic Panel w/ Reflex to MG Comprehensive Metabolic Panel w/ Reflex to MG Lab Routine Daily until discontinued starting 11/30/2018, 1 [place] Comment on above: Daily until disconti nued starting 11/30/2018, 1 completed Culture blood #1 Culture blood # 1 Microbiology STAT 11/28/2018 7:30 PM EDT [place] Culture Blood #2 Culture Blood # 2 Microbiology Routine 11/29/2018 8:20 AM EDT [place] EKG 12 lead EKG 12 lead ECG STAT 11/28/2018 7:50 PM EDT [place] Initiate Oxygen Ther apy Protocol Initiate Oxygen Therapy Protocol Respiratory Care Routine Daily until discontinued starting 11/29/2018 [place] Comment on above: Daily until disconti nued starting 11/29/2018 End: 12-02-2018 Vancomycin, trough Vancomycin, trough Lab Timed One Time for 1 Occurrences starting 12/02/2018 until 12/02/2018 [place] Comment on above: One Time for 1 Occur rences starting 12/02/2018 until 12/02/2018 Payers Date Payer Category Payer Private Health Insurance 2018 Unknown [id number] 2018 Unknown [id number] 2014 Unknown [id number] 1993 Unknown [id number] 2.16.8 40.1.220716.3.579.2.903 1993 Unknown [id number] 2.16.8 40.1.922680.3.579.2.173 1993 Unknown [id number] 2.16.8 40.1.494105.3.579.2.173 1993 Unknown [id number] 2.16.8 40.1.863835.3.579.2.175 1993 Unknown [id number] 2.16.84 0.1.895884.3.579.2.593 1993 Unknown [id number] 2.16.84 0.1.668392.3.579.2.593 1993 Unknown [id number] 2.16.84 0.1.789220.3.579.2.593 1993 Unknown [id number] 2.16.84 0.1.738689.3.579.2.593 1993 Unknown [id number] 2.16.84 0.1.255106.3.579.2.593 1993 Unknown [id number] 2.16.84 0.1.667057.3.579.2.593 1993 Unknown [id number] 2.16.84 0.1.888091.3.579.2.593 1993 Unknown [id number] 2.16.84 0.1.267501.3.579.2.593 1993 Unknown [id number] 2.16. 840.1.701416.3.579.2.196 1993 Unknown [id number] 2.16. 840.1.519657.3.579.2.196 1993 Unknown [id number] 2.16. 840.1.046153.3.579.2.196 1993 Unknown [id number] 2.16.84 0.1.065218.3.579.2.1259 1993 Unknown [id number] 2.16.84 0.1.146899.3.579.2.1259 1993 Unknown [id number] 2.16. 840.1.316354.3.579.2.1286 1959 Medicaid [id number] 1959 Self-pay [id number] 1959 Unknown [id number] Social History Date Type Detail Facility Start: 11-25-2018 End: 11-28-2018 Tobacco smoking status [facility] Current every day smoker [facility] Start: 11-28-2018 [facility] intake [facility] Sex Assigned At Not on file [facility] Start: 11-25-2018 End: 11-28-2018 Tobacco use and exposure Never used [facility] Start: 11-28-2018 Alcohol intake Ex-drinker (finding) [facility] Start: 09-17-2018 Cigarettes smoked current (pack per day) - Reported [facility] Start: 09-17-2018 History SDOH Alcohol Frequency [address] [facility] Start: 02-04-[address] [facility] Ex-smoker (finding) [facility] Start: 02-04-2024 Sex Female (finding) [facility] Start: 1995 Sex Assigned At Female F [facility] Evaluation note Note Date & Type Note Facility Evaluation note Diagnosis Abnormal menstrual periods documented in this encounter [facility] [employer] Work Phone: Evaluation note Note Date & Type Note Facility Evaluation note No assessment information availa ble [facility] Work Phone: Summary Purpose Family History No Family History Records Found Relationship Condition Age at Onset Recorded Date/T samuel father Atrial fibrillation Unknown Diabetes mellitus Unknown Heart disease Unknown Hypertension Unknown mother Chronic obstructive pulmonary disease Unk nown Advance Directives No Advanced Directives Records FoundDocuments on File Type Date Recorded Patient Dye Mixer Expl anation Advance Directives and Living Will Power of Hair Baler Latest Code Status on File Code Status Date Activated Date Inactivated Comments Full Code 11/28/2018 11:54 PM Full Code 11/25/2018 5:09 AM 11/25/2018 10:15 PM Full Code 11/25/2018 3:30 AM 11/25/2018 5:09 AM Documents on File Type Date Recorded Patient Dye Mixer Expl anation ACP-Advance Directive ACP-Power of Hair Baler Latest Code Status on File Code Status Date Activated Date Inactivated Comments Full Code 11/28/2018 11:54 PM 11/30/2018 4:25 PM Documents on File Type Date Recorded Patient Dye Mixer Expl anation Advance Directives and Livin g [...] through Care Everywhere. * : Vaginal Bleeding ([place]) documented in this encounter History of Present [...] when pt backin bed. * Argenis Daniel [facility] - 11/30/2018 7:23 AM EDT [facility] Department Pharmacy Vancomycin Consult: [...] 72 hours while on vancomycin. Thank you, Kenna HamptonPh., 11/30/2018,7:23 AM * Shelly French LSW - 11/29/2018 4:47 PM EDT Met with Patient this p.m. She is a 23 year old single, white female, admitted with Sepsis. Patientis alert and oriented, polite and cooperative with this assessment. Friend at bedside at this time. Patient resides in [place] with her parents. She uses no DME and has no outside services or community resources currently in place. Patient is employed at [employer] but is currently off work. Patient does drive, provides for her own transportation needs. PCP is Dr. Osullivan. Patient denies having difficulty with affording her medications. Plan for Patient is home upon discharge. She is interested in pursuing Advanced Directives. Educational pamphlet provided at this time. Referral made to Pastoral Care to follow up with this request. TIGHTENING MACHINE OPERATOR to monitor for discharge needs and assist as they arise. ULICES Shelby 11/29/2018 * Florinda Muir RN - 11/29/2018 11:09 AM EDT Unsuccessful attempt x2 for new IV access. [employer] called and will be up to attempt. [...] 5. Fluid Accumulation-Mild fluid accumulation, Extremities 6. Snailer Strength-Not measured Nutrition Risk Level: Moderate, Low [...] Change: , none significant per available data. [place] Body Wt: 145 lb (65.8 kg), % [place] Body 255% BMI Classification: BMI > or [...] Pertinent Labs, Weight, Patient/Family Education Contact Number: [phone] * Florinda Muir RN - 11/29/2018 8:30 AM EDT Supply Chain Coordinator called into room by lab, patient c/o [...] Spoke with Dr. Pond regarding consult to ASPHALT RAKER. She is aware of patient, and will speak with Andres DOW in the morning. * Epi Jacques [facility] - 11/28/2018 9:25 PM EDT Pharmacy [...] consult. Will continue to follow. Epi Jacques RPh 11/28/2018 9:25 PM documented in this encounter [...] section and content) DATE CREATED AUTHOR 11/17/2018 [facility] DATE CREATED AUTHOR AUTHOR'S ORGANIZ ATION 12/04/2018 [facility] DATE CREATED AUTHOR AUTHOR'S ORGANIZ ATION 04/30/[address] [facility] DATE CREATED AUTHOR AUTHOR'S ORGANIZ ATION 05/14/2022 [facility] DATE CREATED AUTHOR AUTHOR'S ORGANIZ ATION 07/21/2022 [facility] DATE CREATED AUTHOR AUTHOR'S ORGANIZ ATION 08/14/2023 [facility] DATE CREATED AUTHOR AUTHOR'S ORGANIZ ATION 06/05/2024 [facility] DATE CREATED AUTHOR AUTHOR'S ORGANIZ ATION 06/09/2024 [facility] Reason for Visit (unrecogniz ed section and content) Reason Comments Fatigue BEGAN 1730 TODAY, po st x3 days, baby born at 22 weeks, Chills Fever Status Reason Specialty Diagnoses / Procedures Referre d By Contact Referred To Contact Diagnoses Sepsis (HCC) Sepsis (HCC) Brenton Horton MD [address] [place] [address], [place] [address] [facility] Reason Comments Vaginal Bleeding Zo Bee RN - 09/17/2018 12:03 AM EDT ED Notes (unrecognized secti on and content) Bleeding started within the last hour, pt is 11weeks and 5 days. Pt states bleeding is only when she wipes after using the rest room. documented in this encounter Care Teams (unrecognized sec tion and content) Helper Coordinator Relationship Specialty Start Date End Date Mike Osullivan MD [phone] [phone] PCP - General Family Medicine 11/24/18 Team [...] BE BASED ON THE PRIMARY CLINICAL RECORDS. [facility] [employer] [facility]. provides no warranty or guarantee of the accuracy or completeness of information in this document.
== END 2024-06-18 20:58 | disposition home or self-care (01) ==
LOC: SLEEP 20:57
PROVIDERS: PCP Family Medicine; Visit Provider Family Medicine
DX: G47.33 Obstructive sleep apnea (adult) (pediatric) (principal)
CPT/HCPCS: 95811

== ENCOUNTER 2024-08-18 18:02 | Emergency (ER) | payer OTHER, SELFPAY ==
[2024-08-18 18:04] VITALS: BP 176/91; PULSE 99; TEMP 36.6; O2SAT 99; BMI 66.0
--- OUTSIDE RECORDS SUMMARY | 2024-08-18 18:09 | XMS_ITS | CCD ---
Author Organization [facility] Care Team Providers Care Car Hopper Name Role Phone JENNIFER VIVAR Attending Unavailable HOY, MIKE Primary Care Unavailable Vincenty, Mike M Primary Care Provider MIKE OSULLIVAN M Primary Care Unavailable JENNIFER HEDRICK Admitting Unavailable JENNIEFR HEDRICK Attending Unavailable RAVIN, MIKE M Primary Care Unavailable BRENTON HORTON Admitting Unavailable BRENTON HORTON Attending Unavailable LARISSA SAMPSON Consulting Unavail able ABEBE STEPHENS Admitting Unavailable KAT, ABEBE Attending Unavailable Ravin Mike M Primary Care Provider [phone] Rony Osullivanlas Primary Care Provider [phone] Mike Osullivan MD Primary Care Provider [id number] [phone] VADIM LOVELACE Referring Unavailable HOY, MIKE M Primary Care Unavailable HOY, MIKE Admitting Unavailable HOY, MIKE Attending Unavailable HOY, MIEK Primary Care Unavailable HOY, MIKE Admitting Unavailable [...] Admitting Stiven BABIN, DR ÁNGEL Garcia Attending Unavailfelicity BABIN, DR ÁNGEL Garcia Consulting UnavailMIKE Reynolds Primary Care Unavailable ADALID PEREZ Consulting Unavailable Deondre SHI, Wolf Martinez Attending Unavailable Deondre SHI, Wolf Martinez Attending Unavailable Deondre SHI, Wolf Martinez Attending Unavailable MIKE OSULLIVAN Primary Care Unavailable Mike Osullivan MD Primary Care Provider [phone] MIKE OSULLIVAN Referring Unavailable PRICILLA BRISENO Attending Unavailable Allergies Allergy Classification Reported Allergen(s) Allergy Type Date of Onset Reaction(s) Facility (7 sources) docosanol; Translations: [Unknown] Drug Allergy 9 [facility] Repository (1 source) docosanol Drug Allergy [facility] Repository (1 source) Sulfamethoxazole / Trimethoprim Drug Allergy 0 [facility] Repository (1 source) Sulfamethoxazole Drug Allergy 4 [facility] (1 source) Trimethoprim Drug Allergy 4 [facility] (3 sources) Sulfamethoxazole / Trimethoprim; Translations: [SULFAMETHOXAZOLE-TR IMETHOPRIM] Drug [...] mg from all sources in 24 hours. azelastine hydrochloride 0.137 mg/actuat metered dose nasal spray (2 sources) Histamine-1 Receptor Antagonist Start: 08-15-2024 End: 08-15-2025 take 2 spray(s) nasal route in the morning azelastine (Astelin) 0.1 % nasal spray Indications: Chronic rhinitis Administer 2 sprays into each nostril in the morning and 2 sprays before bedtime. Use in each nostril as directed. 90 mL 3 08/15/2024 08/15/2025 Active 60 actuat budesonide 0.16 mg/actuat / formoterol fumarate 0.0045 mg/actuat metered dose inhaler (2 sources) Corticosteroid, beta2-Adrenergic Agonist Start: 08-15-2024 End: 08-15-2025 take 2 puff(s) by inhalation every four hours for cough budesonide-formoter ol (Symbicort) 160-4.5 MCG/ACT inhaler Indications: Asthma, allergic, mild intermittent, uncomplicated (CMS/HCC) Inhale 2 puffs every 4 (four) hours if needed for wheezing, shortness of breath or cough Rinse mouth with water after use to reduce aftertaste and incidence of candidiasis. Do not swallow. 1 each 08/15/2024 08/15/2025 Active cefTRIAXone (ROCEPHIN) 1 g in sterile water [...] every week vitamin D (ERGOCALCIFEROL) 1.25 MG (98162 UT) CAPS capsule Take 1 capsule by mouth once a week 4 capsule 5 01/28/2020 Active ferrous sulfate 325 mg oral tablet (4 sources) Start: 12-01-2018 take 1 tablet by mouth once daily at breakfast ferrous sulfate 325 (65 Fe) MG tablet Take 1 tablet by mouth daily (with breakfast) 30 tablet 0 12/01/2018 Active Start: 11-29-2018 ferrous sulfat e tablet 325 mg fluticasone propionate 0.05 mg/actuat metered dose nasal spray (2 sources) Corticosteroid Start: 08-15-2024 End: 08-15-2025 take 2 spray(s) nasal route once daily fluticasone (Flonase) 50 MCG/ACT nasal spray Indications: Chronic rhinitis Administer 2 sprays into each nostril Daily Shake gently. Before first use, prime pump. After use, clean tip and replace cap. 48 g 08/15/2024 08/15/2025 Active hydrOXYzine pamoate 25 mg oral capsule (3 sources) Antihistamine take 1 capsule by mouth three times daily as needed for anxiety hydrOXYzine (VISTARIL) 25 MG capsule Take 25 mg by mouth 3 times daily as needed for Anxiety 0 Active ibuprofen 600 mg oral tablet (1 source) Nonsteroidal Anti-inflammatory Drug Start: 11-29-2018 ibuprofen (ADVIL;MOTRIN) tablet 600 mg ketoconazole 20 mg/ml topical cream (1 source) Azole Antifungal Start: 01-29-2021 ketoconazole (NIZORAL) 2 % cream Apply topically twice daily. 30 g 0 01/29/2021 Active magnesium hydroxide 80 mg/ml oral suspension (1 source) Start: 11-28-2018 take 30 mL by mouth once daily as needed for constipation 30 mL, Oral, DAILY PRN, Constipation, Starting Tue11/28/18 at 2353 First line therapy for constipation. 2 ml ondansetron 2 mg/ml injection (1 source) Serotonin-3 Receptor Antagonist Start: 11-28-2018 4 mg, Intravenous, EVERY 6 HOURS PRN, Nausea, Starting Tue11/28/18 at 2353 polyethylene glycol 3350 [id number] mg powder for oral solution (1 source) Osmotic Laxative Start: 11-30-2018 End: 12-30-2018 take 17 g by mouth once daily [...] chloride 9 mg/ml injection (6 sources) Start: 11-29-2018 10 mL, Intravenous, EVERY 12 HOURS SCHEDULED [...] disorder, unspecified] Onset: 09-22-2021 11-29-2018 Chronic Asthma (11 sources) Asthma; Translations: [Unspecified asthma, uncomplicated] Onset: [...] of menstruation; Translations: [Irregular menstruation, unspecified] Chronic Other upper respiratory disease (2 sources) Chronic rhinitis; Translations: [Chronic rhinitis] 08-15-2024 Chronic Residual codes; unclassified (3 sources) Tobacco [...] Mich Thomas MD on 06/07/2024 6:55 PM Normal [facility] BI MAMMOGRAM DIAGNOSTIC AMEYA SYNTHESIS BILATERALon 05-30-2024 [...] IS VERY IMPORTANT TO YOUR HEALTH. THE [employer] GUIDELINES RECOMMEND THAT WOMEN 40 [...] Norman on 05/13/2022 1439 Normal [facility]-19 SARS-CoV-2 (COVID-19) RNA CLIFF+probe Ql (Unsp spec) Detected Critically abnormal NOT DETECTED [facility] Comment on above: Result Comment: This test is not yet approved or cleared by the [place] FDA. When there are no FDA-approved or cleared tests available, and other criteria are met, FDA can make tests available under an emergency access mechanism called an Emergency Use Authorization (EUA). The EUA for this test is supported by the Con[place] of Health and Human Service's declaration that [...] longer be used). Performed By: #### C [facility] #### [facility] [address] [place] [address] Dr. Lilli Soriano INFLUENZA A AND B AGon 03-18 [facility] SEE BELOW Normal [facility] Comment on above: Result Comment: Nega tive for Flu A protein angiten. Infection due to Flu A cannot be ruled out. Flu A angiten in the sample may be below the detection limit of the test. Performed By: #### I NFLUAB #### [facility] [address] [place] [address] Dr. [facility]illi [facility] Normal [facility] Comment on above: Result Comment: Nega tive for Flu B protein antigen. Infection due to Flu B cannot be ruled out. Flu B antigen in the sample may be below the detection limit of the test. Performed By: #### I NFLUAB #### [facility] [address] [place] [address] Dr. Lilli Soriano INFLUENZA A AG Negative Normal NEGATIVE SEE COMMENT [facility] Comment on above: Performed By: #### I NFLUAB #### [facility] [address] [place] [address] Dr. Lilli Soriano INFLUENZA B AG Negative Normal NEGATIVE SEE COMMENT [facility] Comment on above: Performed By: #### I NFLUAB #### [facility] [address] [place] [address] Dr. Lilli Soriano US Pelvic, Transvaginalon US [...] Mcdaniel on 12/24/2021 0958 Normal [facility] Covid-19 PCR ([facility])on 11-21 SARS-CoV-2 (COVID-19) RNA CLIFF+probe Ql (Unsp spec) Not detected Normal NOT DETECTED [facility] Comment on above: Result Comment: This test is not yet approved or cleared by the [place] FDA. When there are no FDA-approved or cleared tests available, and other criteria are met, FDA can make tests available under an emergency access mechanism called an Emergency Use Authorization (EUA). The EUA for this test is supported by the Conde of Health and Human Service's (HHS's) declaration [...] consistent with SARS-CoV-2. Performed By: #### [facility] #### [facility] [address] [place] [address] Dr. Lilli Soriano VC VENOUS REFLUX GRACIELA LMTon 0 12-04-2021 VC VENOUS REFLUX GRACIELA LMT Patient: DEION CUMMINGS Exam Date: 12/04/2021 : 1995 Gender:F Ordering : DR MIKE OSULLIVAN . Admission #: [id number] Family : Order #: [id number] CLICK HERE TO VIEW EXAM RADIOLOGY REPORT [...] chronic thrombus visualized. Compressibility: Normal Flow: Normal Switchboard Receptionist: Dist/med calf 2.1mm with 0s reflux. Dist/med [...] MD on 12/04/2021 at 09:37 Normal [facility] INSULINon 11-26-2021 Insulin 21.8 uIU/mL Normal 2.6-24.9 [facility] Comment on above: Performed By: #### I NSULIN #### [facility] [address] [place] [address] Dr. Lilli Soriano T4, T3U, FTI LABCORPon 11-26 Free Thyroxine Index 2.2 Normal 1.2-4.9 [facility] Comment on above: Performed By: #### B SWAGE TENDER, TSH, LIPID, CMP #### [facility] [address] [place] [address] Dr. Lilli Soriano T3 Uptake 30 % Normal 24-39 [facility] Comment on above: Performed By: #### B SWAGE TENDER, TSH, LIPID, CMP #### [facility] [address] [place] [address] Dr. Lilli Soriano T4 [Mass/Vol] 7.3 ug/dL Normal 4.5-12.0 [facility] Comment on above: Performed By: #### B SWAGE TENDER, TSH, LIPID, CMP #### [facility] [address] [place] [address] Dr. Lilli Soriano BNPon 11-25-2021 Natriuretic peptide B (Bld) [Mass/Vol] 35.0 pg/mL Normal <=450.0 [facility] Comment on above: Performed By: #### B SWAGE TENDER, TSH, LIPID, CMP #### [facility] [address] [place] [address] Dr. Lilli Soriano CBC AUTO DIFFon 11-25-2021 BASO # 0.0 103/ul Normal 0.0-0.1 [facility] Comment on above: Performed By: #### B SWAGE TENDER, TSH, LIPID, CMP #### [facility] [address] [place] [address] Dr. Lilli Soriano Basophils/100 WBC (Bld) 0.5 % Normal 0.2-2.0 [facility] Comment on above: Performed By: #### B SWAGE TENDER, TSH, LIPID, CMP #### [facility] [address] [place] [address] Dr. Lilli Soriano EO # 0.1 103/ul Normal 0.0-0.7 [facility] Comment on above: Performed By: #### B SWAGE TENDER, TSH, LIPID, CMP #### [facility] [address] [place] [address] Dr. Lilli Soriano Eosinophils/100 WBC (Bld) 1.7 % Normal 0.9-7.0 [facility] Comment on above: Performed By: #### B SWAGE TENDER, TSH, LIPID, CMP #### [facility] [address] [place] [address] Dr. Lilli Soriano Erythrocyte distribution width (RBC) [Ratio] 13.6 % Normal 11.0-15.0 [facility] Comment on above: Performed By: #### B SWAGE TENDER, TSH, LIPID, CMP #### [facility] [address] [place] [address] Dr. Lilli Soriano Hematocrit (Bld) [Volume fraction] 42.6 % Normal 36.0-48.0 [facility] Comment on above: Performed By: #### B SWAGE TENDER, TSH, LIPID, CMP #### [facility] [address] [place] [address] Dr. Lilli Soriano Hemoglobin (Bld) [Mass/Vol] 13.6 g/dL Normal 12.0-16.0 [facility] Comment on above: Performed By: #### B SWAGE TENDER, TSH, LIPID, CMP #### [facility] [address] [place] [address] Dr. Lilli Soriano IG # 0.04 10e3/ul Critically high 0.00-0.03 [facility] Comment on above: Performed By: #### B SWAGE TENDER, TSH, LIPID, CMP #### [facility] [address] [place] [address] Dr. Lilli Soriano IG % 0.5 % Normal 0.0-0.5 [facility] Comment on above: Performed By: #### B SWAGE TENDER, TSH, LIPID, CMP #### [facility] [address] [place] [address] Dr. Lilli Soriano LYMPH # 1.7 103/ul Normal 1.2-3.8 [facility] Comment on above: Performed By: #### B SWAGE TENDER, TSH, LIPID, CMP #### [facility] [address] [place] [address] Dr. Lilli Soriano Lymphocytes/100 WBC (Bld) 19.9 % Critically low 20.5-60.0 [facility] Comment on above: Performed By: #### B SWAGE TENDER, TSH, LIPID, CMP #### [facility] [address] [place] [address] Dr. Lilli Soriano MANUAL DIFF REQ NO Normal [facility] Comment on above: Performed By: #### B SWAGE TENDER, TSH, LIPID, CMP #### [facility] [address] [place] [address] Dr. Lilli Soriano MCH (RBC) [Entitic mass] 28.0 pg Normal 26.7-34.0 [facility] Comment on above: Performed By: #### B SWAGE TENDER, TSH, LIPID, CMP #### [facility] [address] [place] [address] Dr. Lilli Soriano MCHC (RBC) [Mass/Vol] 31.9 g/dL Normal 29.9-35.2 [facility] Comment on above: Performed By: #### B SWAGE TENDER, TSH, LIPID, CMP #### [facility] [address] [place] [address] Dr. Lilli Soriano MCV (RBC) [Entitic vol] 87.7 fL Normal 81.0-99.0 [facility] Comment on above: Performed By: #### B SWAGE TENDER, TSH, LIPID, CMP #### [facility] [address] [place] [address] Dr. Lilli Soriano MONO # 0.5 103/ul Normal 0.3-0.8 [facility] Comment on above: Performed By: #### B SWAGE TENDER, TSH, LIPID, CMP #### [facility] [address] [place] [address] Dr. Lilli Soriano Monocytes/100 WBC (Bld) 5.9 % Normal 1.7-12.0 [facility] Comment on above: Performed By: #### B SWAGE TENDER, TSH, LIPID, CMP #### [facility] [address] [address] [address] Lilli Soriano NEUT # 6.1 103/ul Normal 1.4-6.5 [facility] Comment on above: Performed By: #### B SWAGE TENDER, TSH, LIPID, CMP #### [facility] [address] [address] [address] Lilli Soriano Neutrophils/100 WBC (Bld) 71.5 % Normal 43.0-75.0 [facility] Comment on above: Performed By: #### B SWAGE TENDER, TSH, LIPID, CMP #### [facility] [address] [place] [address] Dr. Lilli Soriano Platelet mean volume (Bld) [Entitic vol] 9.7 fL Normal 9.5-13.5 [facility] Comment on above: Performed By: #### B SWAGE TENDER, TSH, LIPID, CMP #### [facility] [address] [place] [address] Dr. Lilli Soriano PLT 289 103/ul Normal 150-450 [facility] Comment on above: Performed By: #### B SWAGE TENDER, TSH, LIPID, CMP #### [facility] [address] [place] [address] Dr. Lilli Soriano RBC 4.86 106/ul Normal 4.20-5.40 [facility] Comment on above: Performed By: #### B SWAGE TENDER, TSH, LIPID, CMP #### [facility] [address] [place] [address] Dr. Lilli Soriano WBC 8.5 103/ul Normal 4.0-11.0 [facility] Comment on above: Performed By: #### B SWAGE TENDER, TSH, LIPID, CMP #### [facility] [address] [place] [address] Dr. Lilli Soriano CULTURE URINEon 11-25-2021 CULTURE URINE Culture Observations : LIGHT GROWTH OF MIXED GENITAL CHICA. NO POTENTIAL PATHOGENS SEEN. Normal [facility] Comment on above: Performed By: #### B SWAGE TENDER, TSH, LIPID, CMP #### [facility] [address] [place] [address] Dr. Lilli Soriano GLYCOHEMOGLOBIN A1Con 2021 ADA RECOMMENDATION SEE BELOW Normal [facility] Comment on above: Result Comment: ADA RECOMMENDED LIMIT 4.0 - 6.0 ADA THERAPEUTIC TARGET < 7.0 ACTION SUGGESTED > 7.0 Performed By: #### B SWAGE TENDER, TSH, LIPID, CMP #### [facility] [address] [address] [address] Lilli Soriano Glucose [Mass/Vol] 108 mg/dL Normal [facility] Comment on above: Performed By: #### B SWAGE TENDER, TSH, LIPID, CMP #### [facility] [address] [address] [address] Lilli Soriano HbA1c (Bld) [Mass fraction] 5.4 % Normal 4.5-6.2 [facility] Comment on above: Performed By: #### B SWAGE TENDER, TSH, LIPID, CMP #### [facility] [address] [place] [address] Dr. Lilli Soriano IRONon 11-25-2021 Iron [Mass/Vol] 47.0 ug/dL Critically low 50.0-170.0 [facility] Comment on above: Performed By: #### B SWAGE TENDER, TSH, LIPID, CMP #### [facility] [address] [place] [address] Dr. Lilli Soriano LIPID PROFILEon 11-25-2021 CHOL-HDL RATIO NORM SEE BELOW Normal [facility] Comment on above: Result Comment: 3.3 - 4.4 LOW RISK 4.4 - 7.1 AVERAGE RISK 7.1 - 11.0 MODERATE RISK >11.0 HIGH RISK Performed By: #### B SWAGE TENDER, TSH, LIPID, CMP #### [facility] [address] [place] [address] Dr. Lilli Soriano Cholesterol [Mass/Vol] 153 mg/dL Normal <=200 [facility] Comment on above: Performed By: #### B SWAGE TENDER, TSH, LIPID, CMP #### [facility] [address] [place] [address] Dr. Lilli Soriano Cholesterol in HDL [Mass/Vol] 56 mg/dL Normal 40-60 [facility] Comment on above: Performed By: #### B SWAGE TENDER, TSH, LIPID, CMP #### [facility] [address] [address] [address] Lilli Soriano Cholesterol in LDL [Mass/Vol] 88.4 mg/dL Normal [facility] Comment on above: Performed By: #### B SWAGE TENDER, TSH, LIPID, CMP #### [facility] [address] [address] [address] Lilli Soriano Cholesterol.total/Cho lesterol in HDL [Mass ratio] 2.7 {ratio} Normal [facility] Comment on above: Performed By: #### B SWAGE TENDER, TSH, LIPID, CMP #### [facility] [address] [address] [address] Lilli Soriano HDL NORMAL > or = 60 mg/dl - LO W CARDIOVASCULAR RISK <40 mg/dl - HIGH CARDIOVASCULAR RISK Normal [facility] Comment on above: Performed By: #### B SWAGE TENDER, TSH, LIPID, CMP #### [facility] [address] [place] [address] Dr. Lilli Soriano LDL CALC NORMAL SEE BELOW Normal [facility] Comment on above: Result Comment: <100 mg/dl OPTIMAL 100 - 129 mg/dl NEAR OR ABOVE OPTIMAL 130 - 159 mg/dl BORDERLINE HIGH 160 - 189 mg/dl HIGH >190 mg/dl VERY HIGH Performed By: #### B SWAGE TENDER, TSH, LIPID, CMP #### [facility] [address] [address] [address] Lilli Soriano Triglyceride [Mass/Vol] 43 mg/dL Normal <=150 [facility] Comment on above: Performed By: #### B SWAGE TENDER, TSH, LIPID, CMP #### [facility] [address] [place] [address] Dr. Lilli Soriano VLDL CALC 8.6 mg/dL Normal [facility] Comment on above: Performed By: #### B SWAGE TENDER, TSH, LIPID, CMP #### [facility] [address] [place] [address] Dr. Lilli Soriano PROF 14(COMP METB)on 022 Albumin [Mass/Vol] 3.7 g/dL Normal 3.4-5.0 [facility] Comment on above: Performed By: #### B SWAGE TENDER, TSH, LIPID, CMP #### [facility] [address] [address] [address] Lilli Soriano Albumin/Globulin [Mass ratio] 1.0 {ratio} Normal [facility] Comment on above: Performed By: #### B SWAGE TENDER, TSH, LIPID, CMP #### [facility] [address] [address] [address] Lilli Soriano ALP [Catalytic activity/Vol] 58 U/L Normal 46-116 [facility] Comment on above: Performed By: #### B SWAGE TENDER, TSH, LIPID, CMP #### [facility] [address] [address] [address] iLlli Soriano ALT [Catalytic activity/Vol] 30 U/L Normal 14-59 [facility] Comment on above: Performed By: #### B SWAGE TENDER, TSH, LIPID, CMP #### [facility] [address] [place] [address] Dr. Lilli Soriano Anion gap [Moles/Vol] 9.9 mmol/L Normal [facility] Comment on above: Performed By: #### B SWAGE TENDER, TSH, LIPID, CMP #### [facility] [address] [place] [address] Dr. Lilli Soriano AST [Catalytic activity/Vol] 10 U/L Critically low 15-37 [facility] Comment on above: Performed By: #### B SWAGE TENDER, TSH, LIPID, CMP #### [facility] [address] [address] [address] Lilli Soriano Bilirubin [Mass/Vol] 0.4 mg/dL Normal 0.2-1.0 [facility] Comment on above: Performed By: #### B SWAGE TENDER, TSH, LIPID, CMP #### [facility] [address] [address] [address] Lilli Soriano Calcium [Mass/Vol] 8.8 mg/dL Normal 8.5-10.1 [facility] Comment on above: Performed By: #### B SWAGE TENDER, TSH, LIPID, CMP #### [facility] [address] [address] [address] Lilli Soriano Chloride [Moles/Vol] 102 mmol/L Normal 98-107 [facility] Comment on above: Performed By: #### B SWAGE TENDER, TSH, LIPID, CMP #### [facility] [address] [place] [address] Dr. Lilli Soriano CO2 [Moles/Vol] 30.1 mmol/L Normal 21.0-32.0 [facility] Comment on above: Performed By: #### B SWAGE TENDER, TSH, LIPID, CMP #### [facility] [address] [place] [address] Dr. Lilli Soriano Creatinine [Mass/Vol] 0.90 mg/dL Normal 0.55-1.02 [facility] Comment on above: Performed By: #### B SWAGE TENDER, TSH, LIPID, CMP #### [facility] [address] [place] [address] Dr. Lilli Soriano EGFR-AF MOLDOVAN >60 Normal >=60 [facility] Comment on above: Performed By: #### B SWAGE TENDER, TSH, LIPID, CMP #### [facility] [address] [place] [address] Dr. Lilli Soriano EGFR-NON AF MOLDOVAN >60 Normal >=60 [facility] Comment on above: Performed By: #### B SWAGE TENDER, TSH, LIPID, CMP #### [facility] [address] [place] [address] Dr. Lilli Soriano Globulin (S) [Mass/Vol] 3.7 g/dL Normal [facility] Comment on above: Performed By: #### B SWAGE TENDER, TSH, LIPID, CMP #### [facility] [address] [place] [address] Dr. Lilli Soriano Glucose [Mass/Vol] 96 mg/dL Normal 74-106 [facility] Comment on above: Performed By: #### B SWAGE TENDER, TSH, LIPID, CMP #### [facility] [address] [place] [address] Dr. Lilli Soriano Potassium [Moles/Vol] 4.0 mmol/L Normal 3.5-5.1 [facility] Comment on above: Performed By: #### B SWAGE TENDER, TSH, LIPID, CMP #### [facility] [address] [address] [address] Lilli Soriano Protein [Mass/Vol] 7.4 g/dL Normal 6.4-8.2 [facility] Comment on above: Performed By: #### B SWAGE TENDER, TSH, LIPID, CMP #### [facility] [address] [place] [address] Dr. Lilli Soriano Sodium [Moles/Vol] 138 mmol/L Normal 136-145 [facility] Comment on above: Performed By: #### B SWAGE TENDER, TSH, LIPID, CMP #### [facility] [address] [place] [address] Dr. Lilli Soriano Urea nitrogen [Mass/Vol] 12.0 mg/dL Normal 7.0-18.0 [facility] Comment on above: Performed By: #### B SWAGE TENDER, TSH, LIPID, CMP #### [facility] [address] [place] [address] Dr. Lilli Soriano Urea nitrogen/Creatinine [Mass ratio] 13.3 mg/mg Normal [facility] Comment on above: Performed By: #### B SWAGE TENDER, TSH, LIPID, CMP #### [facility] [address] [place] [address] Dr. Lilli Soriano TSHon 11-25-2021 TSH 1.196 uIU/mL Normal 0.358-3.740 [facility] Comment on above: Performed By: #### B SWAGE TENDER, TSH, LIPID, CMP #### [facility] [address] [place] [address] Dr. Lilli Soriano UA RANDOM W/MICROSCOPICon BACTERIA TRACE Abnormal NONE SEEN [facility] Comment on above: Performed By: #### B SWAGE TENDER, TSH, LIPID, CMP #### [facility] [address] [place] [address] Dr. Lilli Soriano Bilirubin Ql (U) Negative Normal NEGATIVE [facility] Comment on above: Performed By: #### B SWAGE TENDER, TSH, LIPID, CMP #### [facility] [address] [place] [address] Dr. Lilli Soriano CAST NONE SEEN Normal NONE SEEN [facility] Comment on above: Performed By: #### B SWAGE TENDER, TSH, LIPID, CMP #### [facility] [address] [place] [address] Dr. Lilli Soriano Clarity (U) CLEAR Normal CLEAR [facility] Comment on above: Performed By: #### B SWAGE TENDER, TSH, LIPID, CMP #### [facility] [address] [place] [address] Dr. Lilli Soriano Color (U) LT. YELLOW Normal YELLOW [facility] Comment on above: Performed By: #### B SWAGE TENDER, TSH, LIPID, CMP #### [facility] [address] [place] [address] Dr. Lilli Soriano Crystals LM Nom (Urine sed) NONE SEEN Normal NONE SEEN [facility] Comment on above: Performed By: #### B SWAGE TENDER, TSH, LIPID, CMP #### [facility] [address] [place] [address] Dr. Lilli Soriano Epithelial cells LM Ql (Urine sed) MODERATE Abnormal NONE SEEN /RARE [facility] Comment on above: Performed By: #### B SWAGE TENDER, TSH, LIPID, CMP #### [facility] [address] [place] [address] Dr. Lilli Soriano Glucose Ql (U) Negative Normal NEGATIVE [facility] Comment on above: Performed By: #### B SWAGE TENDER, TSH, LIPID, CMP #### [facility] [address] [place] [address] Dr. Lilli Soriano Hemoglobin Ql (U) Negative Normal NEGATIVE [facility] Comment on above: Performed By: #### B SWAGE TENDER, TSH, LIPID, CMP #### [facility] [address] [place] [address] Dr. Lilli Soriano Ketones Ql (U) Negative Normal NEGATIVE [facility] Comment on above: Performed By: #### B SWAGE TENDER, TSH, LIPID, CMP #### [facility] [address] [place] [address] Dr. Lilli Soriano LEUKOCYTES Negative Normal NEGATIVE The [facility] Comment on above: Performed By: #### B SWAGE TENDER, TSH, LIPID, CMP #### [facility] [address] [place] [address] Dr. Lilli Soriano MUCOUS NONE SEEN Normal NONE SEEN The [facility] Comment on above: Performed By: #### B SWAGE TENDER, TSH, LIPID, CMP #### [facility] [address] [place] [address] Dr. Lilli Soriano Nitrite Ql (U) Negative Normal NEGATIVE [facility] Comment on above: Performed By: #### B SWAGE TENDER, TSH, LIPID, CMP #### [facility] [address] [place] [address] Dr. Lilli Soriano pH (U) 7.0 [pH] Normal 5-9 [facility] Comment on above: Performed By: #### B SWAGE TENDER, TSH, LIPID, CMP #### [facility] [address] [place] [address] Dr. Lilli Soriano RBC 0-2 Normal 0-2 [facility] Comment on above: Performed By: #### B SWAGE TENDER, TSH, LIPID, CMP #### [facility] [address] [place] [address] Dr. Lilli Soriano SPEC GRAVITY 1.010 Normal 1.005-<=1.02 5 [facility] Comment on above: Performed By: #### B SWAGE TENDER, TSH, LIPID, CMP #### [facility] [address] [place] [address] Dr. Lilli Soriano UA PROTEIN Negative Normal NEGATIVE/ TRACE [facility] Comment on above: Performed By: #### B SWAGE TENDER, TSH, LIPID, CMP #### [facility] [address] [place] [address] Dr. Lilli Soriano Urobilinogen Qn (U) 0.2 {Macho'U}/dL Normal 0.2 - 1. 0 [facility] Comment on above: Performed By: #### B SWAGE TENDER, TSH, LIPID, CMP #### [facility] [address] [place] [address] Dr. Lilli Soriano WBC NONE SEEN Normal NONE SEEN [facility] Comment on above: Performed By: #### B SWAGE TENDER, TSH, LIPID, CMP #### [facility] [address] [place] [address] Dr. Lilli Soriano URon 09-19-2021 , QUAL Negative Normal NEGATIVE [facility] Comment on above: Performed By: #### B SWAGE TENDER, TSH, LIPID, CMP #### [facility] [address] [address] [address] Lilli Soriano XR LSPINE 2_3 VIEWSon [...] ADALID RIVERAH Date: 2021-09-19 12:59 Normal [facility] SARS-CoV-2 (COVID-19) RNA CLIFF+probe Ql (Unsp spec) Not detected Normal NOT DETECTED The [facility] Comment on above: Result Comment: This test is not yet approved or cleared by the [place] FDA. When there are no FDA-approved or cleared tests available, and other criteria are met, FDA can make tests available under an emergency access mechanism called an Emergency Use Authorization (EUA). The EUA for this test is supported by the System Planning Engineer of Health and Human Service's (HHS's) declaration [...] SARS-CoV-2. Performed By: #### C VDTBH #### [facility] [address] [address] [address] Lilli Soriano INFLUENZA A AND B AGon 07-30 INFLUANEGH SEE BELOW Normal [facility] Comment on above: Result Comment: Nega tive for Flu A protein angiten. Infection due to Flu A cannot be ruled out. Flu A angiten in the sample may be below the detection limit of the test. Performed By: #### I NFLUAB #### [facility] [address] [place] [address] Dr. Lilli Soriano INFLUBNEGH SEE BELOW Normal [facility] Comment on above: Result Comment: Nega tive for Flu B protein antigen. Infection due to Flu B cannot be ruled out. Flu B antigen in the sample may be below the detection limit of the test. Performed By: #### I NFLUAB #### [facility] [address] [place] [address] Dr. Lilli Soriano INFLUENZA A AG Negative Normal NEGATIVE SEE COMMENT The [facility] Comment on above: Performed By: #### I NFLUAB #### [facility] [address] [place] [address] Dr. Lilli Soriano INFLUENZA B AG Negative Normal NEGATIVE SEE COMMENT [facility] Comment on above: Performed By: #### I NFLUAB #### [facility] [address] [place] [address] Dr. Lilli Soriano INTERNAL CONTROLS Within Normal Limits Normal Wi thin Normal Limits The [facility] Comment on above: Performed By: #### I NFLUAB #### [facility] [address] [place] [address] Dr. Lilli Soriano HCG, Quanton 04-29-2021 HCG, Quant <1 Normal <5 [facility] Comment on above: Result Comment: Non-preg [...] liver. Performed By: #### B HCG #### [id number] [place] [address] Network Applications Specialist: Geo Mar MD hCG, Quantitative, on 04-29-2021 hCG Quant <1 <5 IU/L [facility] Comment on above: Non-preg premeno <=5 Postmeno <=8 Male <=3 If HCG results do not concur with clinical observations, additional testing to confirm results is recommended. Elevated results not associated with may be found in patients with other diseases such as tumors of the germ cells (testis, ovaries, etc.), bladder, pancreas, stomach, lungs, and liver. [facility] CBC Auto Differentialon 03-21 Basophils (Bld) [#/Vol] 0.04 10*3/uL [place] Basophils/100 WBC (Bld) 1 % 0 - 2 % [place] Differential Type NOT REPORTED [place] Eosinophils (Bld) [#/Vol] 0.15 10*3/uL [place] Eosinophils/100 WBC (Bld) 2 % 1 - 4 % [place] Erythrocyte distribution width (RBC) [Ratio] 12.9 % 11.8 - 14.4 % [place] Hematocrit (Bld) [Volume fraction] 44.6 % 36.3 - 47.1 % [place] Hemoglobin (Bld) [Mass/Vol] 14.6 g/dL 11.9 - 15.1 g/dL [place] Immature granulocytes (Bld) [#/Vol] 0.05 10*3/uL [place] Immature granulocytes (Bld) [#/Vol] 1 % High 0 [place] Interpretation and review of laboratory results Abnormal [place] Lymphocytes (Bld) [#/Vol] 1.70 10*3/uL [place] Lymphocytes/100 WBC (Bld) 21 % Low 24 - 43 % [place] MCH (RBC) [Entitic mass] 28.1 pg 25.2 - 33.5 pg [place] MCHC (RBC) [Mass/Vol] 32.7 g/dL 28.4 - 34.8 g/dL [place] MCV (RBC) [Entitic vol] 85.8 fL 82.6 - 102.9 fL [place] Monocytes (Bld) [#/Vol] 0.54 10*3/uL [place] Monocytes/100 WBC (Bld) 7 % 3 - 12 % [place] Platelet mean volume (Bld) [Entitic vol] 10.7 fL 8.1 - 13.5 fL [place] Platelets (Bld) [#/Vol] NOT REPORTED [place] Platelets (Bld) [#/Vol] 337 10*3/uL [place] RBC (Bld) [#/Vol] 5.20 10*6/uL High 3.95 - 5.1 1 m/uL [place] RBC morphology finding Nom (Bld) NOT REPORTED [place] Segmented neutrophils/100 WBC (Bld) 68 % High 36 - 65 % [place] Segs Absolute 5.83 [place] WBC (Bld) [#/Vol] 8.3 10*3/uL [place] WBC (Bld) [#/Vol] 0.0 10*3/uL 0.0 per 10 0 WBC [place] WBC Morphology NOT REPORTED [place] Comprehensive Metabolic Pane jani 04-08-2020 Albumin [Mass/Vol] 4 g/dL 3.5 - 5.2 g/dL [place] Albumin/Globulin [Mass ratio] 1.7 {ratio} [place] ALP [Catalytic activity/Vol] 66 U/L 35 - 104 U/L [place] ALT [Catalytic activity/Vol] 16 U/L 5 - 33 U/L [place] Anion gap [Moles/Vol] 11 mmol/L 9 - 17 mmol/L [place] AST [Catalytic activity/Vol] 13 U/L <32 [place] Bilirubin Ql (U) 0.28 mg/dL Low 0.3 - 1.2 mg/dL [place] Bun/Cre Ratio NOT REPORTED [place] Calcium [Mass/Vol] 9.1 mg/dL 8.6 - 10. 4 mg/dL [place] Chloride [Moles/Vol] 103 mmol/L 98 - 10 7 mmol/L [place] CO2 [Moles/Vol] 21 mmol/L 20 - 31 mmol/L [place] Creatinine [Mass/Vol] 0.78 mg/dL 0.5 - 0.9 mg/dL [place] GFR >60 >60 mL/min [place] GFR Non- >60 >60 mL/min [place] GFR/1.73 sq M predicted among non-blacks MDRD (S/P/Bld) [Vol rate/Area] [place] Comment on above: Average GFR for 20-2 9 years old: 116 mL/min/1.73sq m Chronic Kidney Disease: <60 mL/min/1.73sq m Kidney failure: <15 mL/min/1.73sq m eGFR calculated using average adult body mass. Additional eGFR calculator available at: http://www.[employer]/multiple_crcl_2012.htm GFR/1.73 sq M predicted among non-blacks MDRD (S/P/Bld) [Vol rate/Area] NOT REPORTED [place] Glucose [Mass/Vol] 97 mg/dL 70 - 99 mg/dL [place] Interpretation and review of laboratory results Abnormal [place] Potassium [Moles/Vol] 4.4 mmol/L 3.7 - 5.3 mmol/L [place] Protein [Mass/Vol] 6.4 g/dL 6.4 - 8.3 g/dL [place] Sodium [Moles/Vol] 135 mmol/L 135 - 144 mmol/L [place] Urea nitrogen [Mass/Vol] 12 mg/dL 6 - 20 mg/dL [place] Hemoglobin A1Con 04-08-2020 Glucose [Mass/Vol] 111 mg/dL [place] Comment on above: The ADA and AACC rec ommend providing the estimated average glucose result to permit better patient understanding of their HBA1c result. HbA1c (Bld) [Mass fraction] 5.5 % 4 - 6 % [place] Insulin, totalon 04-08-2020 INR Coag (Bld) [Relative time] [place] Comment on above: Fastin.6-24.9 30 min: 20-112 60 min: 29-88 90 min: 26-84 120 min: 22-79 Insulin 27.4 mU/L [place] Insulin Comment NOT REPORTED [place] T3on 04-08-2020 T3, Total 97 ng/dL 60 - 181 ng/dL [place] T3, Uptakeon 04-08-2020 Interpretation and review of laboratory results Abnormal [place] T4 [Mass/Vol] 37.23 % High 22.5 - 37 % [place] T4on 04-08-2020 T4, Total 6.4 ug/dL 4.5 - 10.9 ug/dL [place] TSH without Reflexon 021 TSH Qn 1.39 m[IU]/L [place] Cult, Bloodon 12-04-2018 Cult, Blood Specimen Description .BLOOD Special Requests RAC 10ML Culture NO GROWTH 5 DAYS Report Status FINAL 12/04/2018 Normal [facility] Comment on above: Performed By: #### T OXOM, HSVG12, CMVM, FA2, MATIAS, TOXOG, HSVM12, CMVG, FA5 #### [facility] [address] [place] [address] Network Applications Specialist: Geo Mar MD #### CBC, FIB #### [facility] [address] [place] [address] Network Applications Specialist: Mario Anne MD #### APROTS, APARVP, APROTC, ARUBGM #### [facility] [address] [place] [address] Network Applications Specialist: Fernando Valencia MD #### LUPPRO #### [facility] T[employer] [place], [place] [id number] Network Applications Specialist: Geo Mar MD [address] [place] [address] Network Applications Specialist: Mario Anne MD Cult,Bloodon 12-03-2018 Cult,Blood Specimen Description .BLOOD Special Requests LAC 20 ML Culture NO GROWTH 5 DAYS Report Status FINAL 12/03/2018 Normal [facility] Comment on above: Performed By: #### T OXOM, HSVG12, CMVM, FA2, MATIAS, TOXOG, HSVM12, CMVG, FA5 #### [address] [address] Network Applications Specialist: Geo Mar MD #### CBC, FIB #### [address] [place] [address] Network Applications Specialist: Mario Anne MD #### APROTS, APARVP, APROTC, ARUBGM #### [facility] [address] [place] [address] Network Applications Specialist: Fernando Valencia MD #### LUPPRO #### [address] [address] Network Applications Specialist: Geo Mar MD [address] [place] [address] Network Applications Specialist: Mario Anne MD CBCon 11-30-2018 Erythrocyte distribution width (RBC) [Ratio] 13.4 % Normal 11.8-14.4 [facility] Comment on above: Performed By: #### T OXOM, HSVG12, CMVM, FA2, MATIAS, TOXOG, HSVM12, CMVG, FA5 #### [address] [address] Network Applications Specialist: Geo Mar MD #### CBC, FIB #### [facility] [address] [place] [address] [place] [address] Network Applications Specialist: Mario Anne MD #### APROTS, APARVP, APROTC, ARUBGM #### [facility] [address] [place], [place] [id number] Network Applications Specialist: Fernando Valencia MD #### LUPPRO #### [address] [address] Network Applications Specialist: Geo Mar MD [address] [place] [phone] Network Applications Specialist: Mario Anne MD Hematocrit (Bld) [Volume fraction] 26.6 % Low 36.3-47.1 [facility] Comment on above: Performed By: #### T OXOM, HSVG12, CMVM, FA2, MATIAS, TOXOG, HSVM12, CMVG, FA5 #### [address] [address] Network Applications Specialist: Geo Mar MD #### CBC, FIB #### [address] [place] [phone] Network Applications Specialist: Mario Anne MD #### APROTS, APARVP, APROTC, ARUBGM #### [facility] [address] [place], [place] [id number] Network Applications Specialist: Fernando Valencia MD #### LUPPRO #### [address] [address] Network Applications Specialist: Geo Mar MD [address] [place] [phone] Network Applications Specialist: Mario Anne MD Hemoglobin (Bld) [Mass/Vol] 8.1 g/dL Low 11.9-15.1 [facility] Comment on above: Performed By: #### T OXOM, HSVG12, CMVM, FA2, MATIAS, TOXOG, HSVM12, CMVG, FA5 #### [address] [address] Network Applications Specialist: Geo Mar MD #### CBC, FIB #### [address] [place] [address] Network Applications Specialist: Mario Anne MD #### APROTS, APARVP, APROTC, ARUBGM #### [facility] [address] [place], [place] [id number] Network Applications Specialist: Fernando Valencia MD #### LUPPRO #### [address] [phone] Network Applications Specialist: Geo Mar MD [address] [place] [address] Network Applications Specialist: Mario Anne MD MCH (RBC) [Entitic mass] 27.2 pg Normal 25.2-33.5 [facility] Comment on above: Performed By: #### T OXOM, HSVG12, CMVM, FA2, MATIAS, TOXOG, HSVM12, CMVG, FA5 #### [address] [address] Network Applications Specialist: Geo Mar MD #### CBC, FIB #### [address] [place] [address] Network Applications Specialist: Mario Anne MD #### APROTS, APARVP, APROTC, ARUBGM #### [facility] [address] [place], [place] [id number] Network Applications Specialist: Fernando Valencia MD #### LUPPRO #### [address] [phone] Network Applications Specialist: Geo Mar MD [address] [place] [address] Network Applications Specialist: Mario Anne MD MCHC (RBC) [Mass/Vol] 30.5 g/dL Normal 28.4-34.8 [facility] Comment on above: Performed By: #### T OXOM, HSVG12, CMVM, FA2, MATIAS, TOXOG, HSVM12, CMVG, FA5 #### [address] [address] Network Applications Specialist: Geo Mar MD #### CBC, FIB #### [address] [place], [place] [phone] Network Applications Specialist: Mario Anne MD #### APROTS, APARVP, APROTC, ARUBGM #### [facility] [address] [place], [place] [id number] Network Applications Specialist: Fernando Valencia MD #### LUPPRO #### [address] [address] Network Applications Specialist: Geo Mar MD [address] [place] [phone] Network Applications Specialist: Mario Anne MD MCV (RBC) [Entitic vol] 89.3 fL Normal 82.6-102.9 [facility] Comment on above: Performed By: #### T OXOM, HSVG12, CMVM, FA2, MATIAS, TOXOG, HSVM12, CMVG, FA5 #### [address] [address] Network Applications Specialist: Geo Mar MD #### CBC, FIB #### [address] [place] [address] Network Applications Specialist: Mario Anne MD #### APROTS, APARVP, APROTC, ARUBGM #### [facility] [address] [place] [address] Network Applications Specialist: Fernando Valencia MD #### LUPPRO #### [address] [address] Network Applications Specialist: Geo Mar MD [address] [place] [phone] Network Applications Specialist: Mario Anne MD NRBC Automated 0.0 per 100 WBC Normal 0.0 [facility] Comment on above: Performed By: #### T OXOM, HSVG12, CMVM, FA2, MATIAS, TOXOG, HSVM12, CMVG, FA5 #### [address] [id number] Network Applications Specialist: Geo Mar MD #### CBC, FIB #### [address] [place] [phone] Network Applications Specialist: Mario Anne MD #### APROTS, APARVP, APROTC, ARUBGM #### [facility] [address] [place], [place] [phone] Network Applications Specialist: Fernando Valencia MD #### LUPPRO #### [address] [address] Network Applications Specialist: Geo Mar MD [address] [place] [phone] Network Applications Specialist: Mario Anne MD Platelet mean volume (Bld) [Entitic vol] 10.0 fL Normal 8.1-13.5 [facility] Comment on above: Performed By: #### T OXOM, HSVG12, CMVM, FA2, MATIAS, TOXOG, HSVM12, CMVG, FA5 #### [address] [address] Network Applications Specialist: Geo Mar MD #### CBC, FIB #### [address] [place] [phone] Network Applications Specialist: Mario Anne MD #### APROTS, APARVP, APROTC, ARUBGM #### [facility] [address] [place], [place] [id number] Network Applications Specialist: Fernando Valencia MD #### LUPPRO #### [address] [address] Network Applications Specialist: Geo Mar MD [address] [place] [phone] Network Applications Specialist: Mario Anne MD Platelets (Bld) [#/Vol] 255 10*3/uL Normal 138-453 [facility] Comment on above: Performed By: #### T OXOM, HSVG12, CMVM, FA2, MATIAS, TOXOG, HSVM12, CMVG, FA5 #### [address] [address] Network Applications Specialist: Geo Mar MD #### CBC, FIB #### [address] [place] [phone] Network Applications Specialist: Mario Anne MD #### APROTS, APARVP, APROTC, ARUBGM #### [facility] [address] [place] [address] Network Applications Specialist: Fernando Valencia MD #### LUPPRO #### [address] [address] Network Applications Specialist: Geo Mar MD [address] [place] [phone] Network Applications Specialist: Mario Anne MD RBC (Bld) [#/Vol] 2.98 10*6/uL Low 3.95-5.11 [facility] Comment on above: Performed By: #### T OXOM, HSVG12, CMVM, FA2, MATIAS, TOXOG, HSVM12, CMVG, FA5 #### [address] [address] Network Applications Specialist: Geo Mar MD #### CBC, FIB #### [address] [place], [place] [phone] Network Applications Specialist: Mario Anne MD #### APROTS, APARVP, APROTC, ARUBGM #### [facility] [address] [place] [address] Network Applications Specialist: Fernando Valencia MD #### LUPPRO #### [address] [address] Network Applications Specialist: Geo Mar MD [address] [place] [phone] Network Applications Specialist: Mario Anne MD WBC (Bld) [#/Vol] 6.3 10*3/uL Normal 3.5-11.3 [facility] Comment on above: Performed By: #### T OXOM, HSVG12, CMVM, FA2, MATIAS, TOXOG, HSVM12, CMVG, FA5 #### [address] [phone] Network Applications Specialist: Geo Mar MD #### CBC, FIB #### [address] [place] [address] Network Applications Specialist: Mario Anne MD #### APROTS, APARVP, APROTC, ARUBGM #### [facility] [address] [place] [address] Network Applications Specialist: Fernando Valencia MD #### LUPPRO #### [address] [phone] Network Applications Specialist: Geo Mar MD [address] [place] [address] Network Applications Specialist: Mario Anne MD Erythrocyte distribution width (RBC) [Ratio] 13.4 % 11.8 - 14.4 % [place] Hematocrit (Bld) [Volume fraction] 26.6 % Low 36.3 - 47.1 % [place] Hemoglobin (Bld) [Mass/Vol] 8.1 g/dL Low 11.9 - 15.1 g/dL [place] Interpretation and review of laboratory results Abnormal [place] MCH (RBC) [Entitic mass] 27.2 pg 25.2 - 33.5 pg [place] MCHC (RBC) [Mass/Vol] 30.5 g/dL 28.4 - 34.8 g/dL [place] MCV (RBC) [Entitic vol] 89.3 fL 82.6 - 102.9 fL [place] Platelet mean volume (Bld) [Entitic vol] 10.0 fL 8.1 - 13.5 fL [place] Platelets (Bld) [#/Vol] 255 10*3/uL [place] RBC (Bld) [#/Vol] 2.98 10*6/uL Low 3.95 - 5.1 1 m/uL [place] WBC (Bld) [#/Vol] 6.3 10*3/uL [place] WBC (Bld) [#/Vol] 0.0 10*3/uL 0.0 per 10 0 WBC [place] Comp Metabolic Pr/rfx MGon 0 11-30-2018 (cont.) Normal [facility] Comment on above: Result Comment: Aver age GFR for 20-29 years old: 116 mL/min/1.73sq m Chronic Kidney Disease: <60 mL/min/1.73sq m Kidney failure: <15 mL/min/1.73sq m eGFR calculated using average adult body mass. Additional eGFR calculator available at: http://www.[employer]/multiple_crcl_2011.htm Performed By: #### T OXOM, HSVG12, CMVM, FA2, MATIAS, TOXOG, HSVM12, CMVG, FA5 #### [facility] [address] [place] [address] Network Applications Specialist: Geo Mar MD #### CBC, FIB #### [facility] [address] [place] [address] Network Applications Specialist: Mario Anne MD #### APROTS, APARVP, APROTC, ARUBGM #### [facility] [address] [place] [address] Network Applications Specialist: Fernando Valencia MD #### LUPPRO #### [address] [address] Network Applications Specialist: Geo Mar MD [address] [place], [place] 6398083 Network Applications Specialist: Mario Anne MD Albumin [Mass/Vol] 2.9 g/dL Low 3.5-5.2 [facility] Comment on above: Performed By: #### T OXOM, HSVG12, CMVM, FA2, MATIAS, TOXOG, HSVM12, CMVG, FA5 #### [address] [address] Network Applications Specialist: Geo Mar MD #### CBC, FIB #### [address] [place] [phone] Network Applications Specialist: Mario Anne MD #### APROTS, APARVP, APROTC, ARUBGM #### [facility] [address] [place] [address] Network Applications Specialist: Fernando Valencia MD #### LUPPRO #### [address] [address] Network Applications Specialist: Geo Mar MD [address] [place] [phone] Network Applications Specialist: Mario Anne MD Albumin/Globulin [Mass ratio] 1.1 {ratio} Normal 1.0-2.5 [facility] Comment on above: Performed By: #### T OXOM, HSVG12, CMVM, FA2, MATIAS, TOXOG, HSVM12, CMVG, FA5 #### [address] [address] Network Applications Specialist: Geo Mar MD #### CBC, FIB #### [address] [place], [place] 2931183 Network Applications Specialist: Mario Anne MD #### APROTS, APARVP, APROTC, ARUBGM #### [facility] [address] [place], [place] [id number] Network Applications Specialist: Fernando Valencia MD #### LUPPRO #### [address] [address] Network Applications Specialist: Geo Mar MD [address] [place], [place] 604[address]83 Network Applications Specialist: Mario Anne MD Alkaline Phos 41 U/L Normal 35-[address] [facility] Comment on above: Performed By: #### T OXOM, HSVG12, CMVM, FA2, MATIAS, TOXOG, HSVM12, CMVG, FA5 #### [address] [address] Network Applications Specialist: Geo Mar MD #### CBC, FIB #### [address] [place], [place] 460[address]83 Network Applications Specialist: Mario Anne MD #### APROTS, APARVP, APROTC, ARUBGM #### [facility] [address] [place], [place] [id number] Network Applications Specialist: Fernando Valencia MD #### LUPPRO #### [address] [address] Network Applications Specialist: Geo Mar MD [address] [place], [place] 0786683 Network Applications Specialist: Mario Anne MD ALT [Catalytic activity/Vol] 17 U/L Normal 5-33 [facility] Comment on above: Performed By: #### T OXOM, HSVG12, CMVM, FA2, MATIAS, TOXOG, HSVM12, CMVG, FA5 #### [address] [address] Network Applications Specialist: Geo Mar MD #### CBC, FIB #### [address] [place], [place] 507[address]83 Network Applications Specialist: Mario Anne MD #### APROTS, APARVP, APROTC, ARUBGM #### [facility] [address] [place], [place] [id number] Network Applications Specialist: Fernando Valencia MD #### LUPPRO #### [address] [address] Network Applications Specialist: Geo Mar MD [address] [place], [place] 4706083 Network Applications Specialist: Mario Anne MD Anion gap [Moles/Vol] 14 mmol/L Normal 9-17 [facility] Comment on above: Performed By: #### T OXOM, HSVG12, CMVM, FA2, MATIAS, TOXOG, HSVM12, CMVG, FA5 #### [address] [address] Network Applications Specialist: Geo Mar MD #### CBC, FIB #### [address] [place], [place] 2863783 Network Applications Specialist: Mario Anne MD #### APROTS, APARVP, APROTC, ARUBGM #### [facility] [address] [place], [place] [id number] Network Applications Specialist: Fernando Valencia MD #### LUPPRO #### [address] [address] Network Applications Specialist: Geo Mar MD [address] [place], [place] 7766483 Network Applications Specialist: Mario Anne MD AST [Catalytic activity/Vol] 14 U/L Normal <32 [facility] Comment on above: Performed By: #### T OXOM, HSVG12, CMVM, FA2, MATIAS, TOXOG, HSVM12, CMVG, FA5 #### [address] [address] Network Applications Specialist: Geo Mar MD #### CBC, FIB #### [address] [place], [place] [phone] Network Applications Specialist: Mario Anne MD #### APROTS, APARVP, APROTC, ARUBGM #### [facility] [address] [place] [address] Network Applications Specialist: Fernando Valencia MD #### LUPPRO #### [address] [address] Network Applications Specialist: Geo Mar MD [address] [place], [place] 4514783 Network Applications Specialist: Mario Anne MD Bilirubin Ql (U) 0.16 mg/dL Low 0.3-1.2 [facility] [place] Comment on above: Performed By: #### T OXOM, HSVG12, CMVM, FA2, MATIAS, TOXOG, HSVM12, CMVG, FA5 #### [address] [address] Network Applications Specialist: Geo Mar MD #### CBC, FIB #### [address] [place], [place] 4515783 Network Applications Specialist: Mario Anne MD #### APROTS, APARVP, APROTC, ARUBGM #### [facility] [address] [place] [address] Network Applications Specialist: Fernando Valencia MD #### LUPPRO #### [address] [address] Network Applications Specialist: Geo Mar MD [address] [place], [place] [phone] Network Applications Specialist: Mario Anne MD BUN/CRE Ratio 8 Low 9-[address] [facility] Comment on above: Performed By: #### T OXOM, HSVG12, CMVM, FA2, MATIAS, TOXOG, HSVM12, CMVG, FA5 #### [address] [address] Network Applications Specialist: Geo Mar MD #### CBC, FIB #### [address] [place], [place] 2854283 Network Applications Specialist: Mario Anne MD #### APROTS, APARVP, APROTC, ARUBGM #### [facility] [address] [place], [place] [id number] Network Applications Specialist: Fernando Valencia MD #### LUPPRO #### [address] [address] Network Applications Specialist: Geo Mar MD [address] [place] [phone] Network Applications Specialist: Mario Anne MD Calcium [Mass/Vol] 8.4 mg/dL Low 8.6-10.4 [facility] Comment on above: Performed By: #### T OXOM, HSVG12, CMVM, FA2, MATIAS, TOXOG, HSVM12, CMVG, FA5 #### [address] [address] Network Applications Specialist: Geo Mar MD #### CBC, FIB #### [address] [place], [place] [phone] Network Applications Specialist: Mario Anne MD #### APROTS, APARVP, APROTC, ARUBGM #### [facility] [address] [place], [place] [id number] Network Applications Specialist: Fernando Valencia MD #### LUPPRO #### [address] [address] Network Applications Specialist: Geo Mar MD [facility] [address] [place], [place] 6276383 Network Applications Specialist: Mario Anne MD Chloride [Moles/Vol] 105 mmol/L Normal 98-107 [facility] Comment on above: Performed By: #### T OXOM, HSVG12, CMVM, FA2, MATIAS, TOXOG, HSVM12, CMVG, FA5 #### [address] [address] Network Applications Specialist: Geo Mar MD #### CBC, FIB #### [address] [place], [place] 7576083 Network Applications Specialist: Mario Anne MD #### APROTS, APARVP, APROTC, ARUBGM #### [facility] [address] [place], [place] [id number] Network Applications Specialist: Fernando Valencia MD #### LUPPRO #### [address] [address] Network Applications Specialist: Geo Mar MD [address] [place], [place] 1808683 Network Applications Specialist: Mario Anne MD CO2 [Moles/Vol] 20 mmol/L Normal 20-31 [facility] Comment on above: Performed By: #### T OXOM, HSVG12, CMVM, FA2, MATIAS, TOXOG, HSVM12, CMVG, FA5 #### [address] [address] Network Applications Specialist: Geo Mar MD #### CBC, FIB #### [address] [place], [place] 1543083 Network Applications Specialist: Mario Anne MD #### APROTS, APARVP, APROTC, ARUBGM #### [facility] [address] [place] [address] Network Applications Specialist: Fernando Valencia MD #### LUPPRO #### [address] [address] Network Applications Specialist: Geo Mar MD [address] [place], [place] 1959083 Network Applications Specialist: Mario Anne MD Creatinine [Mass/Vol] 0.88 mg/dL Normal 0.50-0.90 [facility] Comment on above: Performed By: #### T OXOM, HSVG12, CMVM, FA2, MATIAS, TOXOG, HSVM12, CMVG, FA5 #### [address] [address] Network Applications Specialist: Geo Mar MD #### CBC, FIB #### [address] [place] [phone] Network Applications Specialist: Mario Anne MD #### APROTS, APARVP, APROTC, ARUBGM #### [facility] [address] [place] [address] Network Applications Specialist: Fernando Valencia MD #### LUPPRO #### [address] [address] Network Applications Specialist: Geo Mar MD [address] [place] [phone] Network Applications Specialist: Mario Anne MD GFR, Amer >60 Normal >60 [facility] [place] Comment on above: Performed By: #### T OXOM, HSVG12, CMVM, FA2, MATIAS, TOXOG, HSVM12, CMVG, FA5 #### [address] [address] Network Applications Specialist: Geo Mar MD #### CBC, FIB #### [address] [place] [address] Network Applications Specialist: Mario Anne MD #### APROTS, APARVP, APROTC, ARUBGM #### [facility] [address] [place], [place] [id number] Network Applications Specialist: Fernando Valencia MD #### LUPPRO #### [address] [address] Network Applications Specialist: Geo Mar MD [address] [place], [place] 369[address]3 Network Applications Specialist: Mario Anne MD GFR,non Amer >60 Normal >60 [facility] Comment on above: Performed By: #### T OXOM, HSVG12, CMVM, FA2, MATIAS, TOXOG, HSVM12, CMVG, FA5 #### [address] [address] Network Applications Specialist: Geo Mar MD #### CBC, FIB #### [address] [place], [place] [phone] Network Applications Specialist: Mario Anne MD #### APROTS, APARVP, APROTC, ARUBGM #### [facility] [address] [place], [place] [id number] Network Applications Specialist: Fernando Valencia MD #### LUPPRO #### [address] [address] Network Applications Specialist: Geo Mar MD [address] [place], [place] 29[address]83 Network Applications Specialist: Mario Anne MD Glucose [Mass/Vol] 123 mg/dL High 70-99 [facility] Comment on above: Performed By: #### T OXOM, HSVG12, CMVM, FA2, MATIAS, TOXOG, HSVM12, CMVG, FA5 #### [address] [address] Network Applications Specialist: Geo Mar MD #### CBC, FIB #### [address] [place], [place] 8995583 Network Applications Specialist: Mario Anne MD #### APROTS, APARVP, APROTC, ARUBGM #### [facility] [address] [place], [place] [id number] Network Applications Specialist: Fernando Valencia MD #### LUPPRO #### [address] [address] Network Applications Specialist: Geo Mar MD [address] [place], [place] 8642483 Network Applications Specialist: Mario Anne MD Potassium [Moles/Vol] 3.7 mmol/L Normal 3.7-5.3 [facility] Comment on above: Performed By: #### T OXOM, HSVG12, CMVM, FA2, MATIAS, TOXOG, HSVM12, CMVG, FA5 #### [address] [address] Network Applications Specialist: Geo Mar MD #### CBC, FIB #### [address] [place], [place] [phone] Network Applications Specialist: Mario Anne MD #### APROTS, APARVP, APROTC, ARUBGM #### [facility] [address] [place], [place] [id number] Network Applications Specialist: Fernando Valencia MD #### LUPPRO #### [address] [address] Network Applications Specialist: Geo Mar MD [address] [place] [address] Network Applications Specialist: Mario Anne MD Protein [Mass/Vol] 5.6 g/dL Low 6.4-8.3 [facility] Comment on above: Performed By: #### T OXOM, HSVG12, CMVM, FA2, MATIAS, TOXOG, HSVM12, CMVG, FA5 #### [address] [address] Network Applications Specialist: Geo Mar MD #### CBC, FIB #### [address] [place], [place] 7251383 Network Applications Specialist: Mario Anne MD #### APROTS, APARVP, APROTC, ARUBGM #### [facility] [address] [place] [address] Network Applications Specialist: Fernando Valencia MD #### LUPPRO #### [address] [address] Network Applications Specialist: Geo Mar MD [address] [place], [place] 1336883 Network Applications Specialist: Mario Anne MD Sodium [Moles/Vol] 139 mmol/L Normal 135-144 [facility] Comment on above: Performed By: #### T OXOM, HSVG12, CMVM, FA2, MATIAS, TOXOG, HSVM12, CMVG, FA5 #### [address] [address] Network Applications Specialist: Geo Mar MD #### CBC, FIB #### [address] [place], [place] 2983883 Network Applications Specialist: Mario Anne MD #### APROTS, APARVP, APROTC, ARUBGM #### [facility] [address] [place] [address] Network Applications Specialist: Fernando Valencia MD #### LUPPRO #### [address] [address] Network Applications Specialist: Geo Mar MD [address] [place], [place] 6921283 Network Applications Specialist: Mario Anne MD Staging: Normal [facility] Comment on above: Result Comment: Stag [...] FA2, MATIAS, TOXOG, HSVM12, CMVG, FA5 #### [address] [address] Network Applications Specialist: Geo Mar MD #### CBC, FIB #### [address] [place] [address] Network Applications Specialist: Mario Anne MD #### APROTS, APARVP, APROTC, ARUBGM #### [facility] [address] [place], [place] [id number] Network Applications Specialist: Fernando Valencia MD #### LUPPRO #### [address] [address] Network Applications Specialist: Geo Mar MD [address] [place] [address] Network Applications Specialist: Mario Anne MD Urea nitrogen [Mass/Vol] 7 mg/dL Normal 6-20 [facility] Comment on above: Performed By: #### T OXOM, HSVG12, CMVM, FA2, MATIAS, TOXOG, HSVM12, CMVG, FA5 #### [address] [address] Network Applications Specialist: Geo Mar MD #### CBC, FIB #### [address] [place] [address] Network Applications Specialist: Mario Anne MD #### APROTS, APARVP, APROTC, ARUBGM #### [facility] [address] [place], [place] [id number] Network Applications Specialist: Fernando Valencia MD #### LUPPRO #### [facility] [address] [place] [address] Network Applications Specialist: Geo Mar MD [facility] [address] [place] [address] Network Applications Specialist: Mario Anne MD Comprehensive Metabolic Pane l w/ Reflex to MGon 11-30-2018 Albumin [Mass/Vol] 2.9 g/dL Low 3.5 - 5.2 g/dL [place] Albumin/Globulin [Mass ratio] 1.1 {ratio} [place] ALP [Catalytic activity/Vol] 41 U/L 35 - 104 U/L [place] ALT [Catalytic activity/Vol] 17 U/L 5 - 33 U/L [place] Anion gap [Moles/Vol] 14 mmol/L 9 - 17 mmol/L [place] AST [Catalytic activity/Vol] 14 U/L <32 [place] Bilirubin Ql (U) 0.16 mg/dL Low 0.3 - 1.2 mg/dL [place] Bun/Cre Ratio 8 Low [place] Calcium [Mass/Vol] 8.4 mg/dL Low 8.6 - 10. 4 mg/dL [place] Chloride [Moles/Vol] 105 mmol/L 98 - 10 7 mmol/L [place] CO2 [Moles/Vol] 20 mmol/L 20 - 31 mmol/L [place] Creatinine [Mass/Vol] 0.88 mg/dL 0.5 - 0.9 mg/dL [place] GFR >60 >60 mL/min [place] GFR Non- >60 >60 mL/min [place] Glucose [Mass/Vol] 123 mg/dL High 70 - 99 mg/dL [place] Interpretation and review of laboratory results Abnormal [place] Potassium [Moles/Vol] 3.7 mmol/L 3.7 - 5.3 mmol/L [place] Protein [Mass/Vol] 5.6 g/dL Low 6.4 - 8.3 g/dL [place] Sodium [Moles/Vol] 139 mmol/L 135 - 144 mmol/L [place] Urea nitrogen [Mass/Vol] 7 mg/dL 6 - 20 mg/dL [place] Cult,Urineon 11-30-2018 Cult,Urine Specimen Description .VOIDED URINE Special Requests NOT REPORTED Culture STREPTOCOCCI, BETA HEMOLYTIC GROUP B >[id number] CFU/ML Report Status FINAL 11/30/2018 Normal [facility] Comment on above: Performed By: #### T OXOM, HSVG12, CMVM, FA2, MATIAS, TOXOG, HSVM12, CMVG, FA5 #### [facility] [employer] [place] [id number] Network Applications Specialist: Geo Mar MD #### CBC, FIB #### [facility] [address] [place] [address] Network Applications Specialist: Mario Anne MD #### APROTS, APARVP, APROTC, ARUBGM #### [facility] [address] [place], [place] [id number] Network Applications Specialist: Fernando Valencia MD #### LUPPRO #### [address] [phone] Network Applications Specialist: Geo Mar MD [facility] [address] [place] [address] [place] [address] Network Applications Specialist: Mario Anne MD Metabolic Panelon 11-30-2018 GFR/1.73 sq M predicted among non-blacks MDRD (S/P/Bld) [Vol rate/Area] [place] Comment on above: Stage 1: Some [...] body mass. Additional eGFR calculator available at: http://www.[employer]/multiple_crcl_2012.htm Vancomycin Troughon 12-01-19 19 Vancomycin Trough 22.3 ug/mL Critically high 10.0-20.0 [facility] Comment on above: Result Comment: High er trough serum vancomycin concentrations of 15-20 ug/mL are recommended for complicated infections such as bacteremia, endocarditis, osteomyelitis, meningitis, and hospital acquired pneumonia. Performed By: #### T OXOM, HSVG12, CMVM, FA2, MATIAS, TOXOG, HSVM12, CMVG, FA5 #### [address] [address] Network Applications Specialist: Geo Mar MD #### CBC, FIB #### [address] [place] [phone] Network Applications Specialist: Mario Anne MD #### APROTS, APARVP, APROTC, ARUBGM #### [facility] [address] [place] [address] Network Applications Specialist: Fernando Valencia MD #### LUPPRO #### [address] [phone] Network Applications Specialist: Geo Mar MD [address] [place] [phone] Network Applications Specialist: Mario Anne MD Date last dose, NOT REPORTED Normal [facility] Comment on above: Performed By: #### T OXOM, HSVG12, CMVM, FA2, MATIAS, TOXOG, HSVM12, CMVG, FA5 #### [address] [address] Network Applications Specialist: Geo Mar MD #### CBC, FIB #### [address] [place] [phone] Network Applications Specialist: Mario Anne MD #### APROTS, APARVP, APROTC, ARUBGM #### [facility] [address] [place] [address] Network Applications Specialist: Fernando Valencia MD #### LUPPRO #### [address] [address] Network Applications Specialist: Geo Mar MD [address] [place], [place] [phone] Network Applications Specialist: Mario Anne MD Dose amount, NOT REPORTED Normal [facility] Comment on above: Performed By: #### T OXOM, HSVG12, CMVM, FA2, MATIAS, TOXOG, HSVM12, CMVG, FA5 #### [address] [address] Network Applications Specialist: Geo Mar MD #### CBC, FIB #### [address] [place], [place] [phone] Network Applications Specialist: Mario Anne MD #### APROTS, APARVP, APROTC, ARUBGM #### [facility] [address] [place], [place] [id number] Network Applications Specialist: Fernando Valencia MD #### LUPPRO #### [address] [address] Network Applications Specialist: Geo Mar MD [address] [place], [place] [phone] Network Applications Specialist: Mario Anne MD Time last dose, NOT REPORTED Normal [facility] Comment on above: Performed By: #### T OXOM, HSVG12, CMVM, FA2, MATIAS, TOXOG, HSVM12, CMVG, FA5 #### [address] [address] Network Applications Specialist: Geo Mar MD #### CBC, FIB #### [facility] [address] [place] [address] Network Applications Specialist: Mario Anne MD #### APROTS, APARVP, APROTC, ARUB #### [facility] [address] [place] [address] Network Applications Specialist: Fernando Valencia MD #### LUPPRO #### [facility] [address] [place], [place] [phone] Network Applications Specialist: Geo Mar MD [facility] [address] [place] [address] Network Applications Specialist: Mario Anne MD Vancomycin, troughon 019 Interpretation and review of laboratory results Abnormal [place] Vancomycin Tr 22.3 ug/mL Critically high 10 - 20 ug/mL [place] Comment on above: Higher trough serum vancomycin concentrations of 15-20 ug/mL are recommended for complicated infections such as bacteremia, endocarditis, osteomyelitis, meningitis, and hospital acquired pneumonia. Vancomycin Trough Date last dose NOT REPORTED [place] Vancomycin Trough Dose amount NOT REPORTED [place] Vancomycin Trough Time last dose NOT REPORTED [place] CBCon 11-29-2018 Erythrocyte distribution width (RBC) [Ratio] 13.4 % Normal 11.8-14.4 [facility] Comment on above: Performed By: #### T YS #### [address] [place] [address] Network Applications Specialist: Mario Anne MD Hematocrit (Bld) [Volume fraction] 27.2 % Low 36.3-47.1 [facility] Comment on above: Performed By: #### T YS #### [address] [place] [address] Network Applications Specialist: Mario Anne MD Hemoglobin (Bld) [Mass/Vol] 8.3 g/dL Low 11.9-15.1 [facility] Comment on above: Performed By: #### T YS #### [address] [place], [place] [phone] Network Applications Specialist: Mario Anne MD MCH (RBC) [Entitic mass] 27.9 pg Normal 25.2-33.5 [facility] Comment on above: Performed By: #### T YS #### [facility] [address] [place], [place] [phone] Network Applications Specialist: Mario Anne MD MCHC (RBC) [Mass/Vol] 30.5 g/dL Normal 28.4-34.8 [facility] Comment on above: Performed By: #### T YS #### [address] [place] [phone] Network Applications Specialist: Mario Anne MD MCV (RBC) [Entitic vol] 91.3 fL Normal 82.6-102.9 [facility] Comment on above: Performed By: #### T YS #### [address] [place], [place] 7475083 Network Applications Specialist: Mario Anne MD NRBC Automated 0.0 per 100 WBC Normal 0.0 [facility] Comment on above: Performed By: #### T YS #### [address] [place], [place] 3351283 Network Applications Specialist: Mario Anne MD Platelet mean volume (Bld) [Entitic vol] 9.6 fL Normal 8.1-13.5 [facility] Comment on above: Performed By: #### T YS #### [address] [place], [place] 6029383 Network Applications Specialist: Mario Anne MD Platelets (Bld) [#/Vol] 243 10*3/uL Normal 138-453 [facility] Comment on above: Performed By: #### T YS #### [facility] [address] [place], [place] 3606983 Network Applications Specialist: Mario Anne MD RBC (Bld) [#/Vol] 2.98 10*6/uL Low 3.95-5.11 [facility] Comment on above: Performed By: #### T YS #### [facility] [address] [place], [place] 8805583 Network Applications Specialist: Mario Anne MD WBC (Bld) [#/Vol] 16.6 10*3/uL High 3.5-11.3 [facility] Comment on above: Performed By: #### T YS #### [facility] [address] [place], [place] 6045483 Network Applications Specialist: Mario Anne MD Erythrocyte distribution width (RBC) [Ratio] 13.4 % 11.8 - 14.4 % [place] Hematocrit (Bld) [Volume fraction] 27.2 % Low 36.3 - 47.1 % [place] Hemoglobin (Bld) [Mass/Vol] 8.3 g/dL Low 11.9 - 15.1 g/dL [place] Interpretation and review of laboratory results Abnormal [place] MCH (RBC) [Entitic mass] 27.9 pg 25.2 - 33.5 pg [place] MCHC (RBC) [Mass/Vol] 30.5 g/dL 28.4 - 34.8 g/dL [place] MCV (RBC) [Entitic vol] 91.3 fL 82.6 - 102.9 fL [place] Platelet mean volume (Bld) [Entitic vol] 9.6 fL 8.1 - 13.5 fL [place] Platelets (Bld) [#/Vol] 243 10*3/uL [place] RBC (Bld) [#/Vol] 2.98 10*6/uL Low 3.95 - 5.1 1 m/uL [place] WBC (Bld) [#/Vol] 16.6 10*3/uL High [place] WBC (Bld) [#/Vol] 0.0 10*3/uL 0.0 per 10 0 WBC [place] CONSULTATIONon 11-29-[address] [id number] CONSULTATION PATIENT NAME: DEION CUMMINGS : 1995 MED REC NO: [id number] ROOM: 0328 ACCOUNT NO: [id number] ADMIT DATE: 11/28/2018 PROVIDER: Jennifer Hedrick CONSULT [...] the consultation in this matter. JENNIFER HEDRICK VANNA/[email or web address] Doc#: [id number] CC: Normal [facility] Comp Metabolic Pr/rfx MGon 0 11-29-2018 (cont.) Normal [facility] Comment on above: Result Comment: Aver age GFR for 20-29 years old: 116 mL/min/1.73sq m Chronic Kidney Disease: <60 mL/min/1.73sq m Kidney failure: <15 mL/min/1.73sq m eGFR calculated using average adult body mass. Additional eGFR calculator available at: http://www.[employer]/multiple_crcl_2011.htm Performed By: #### T YS #### [facility] [address] [place] [address] Network Applications Specialist: Mario Anne MD Albumin [Mass/Vol] 3.1 g/dL Low 3.5-5.2 [facility] Comment on above: Performed By: #### T YS #### [facility] [address] [place], [place] [phone] [employer] Specialist: Mario Anne MD Albumin/Globulin [Mass ratio] 1.2 {ratio} Normal 1.0-2.5 [facility] Comment on above: Performed By: #### T YS #### [facility] [address] [place], [place] [phone] [employer] Specialist: Mario Anne MD Alkaline Phos 38 U/L Normal 35-[address] [facility] Comment on above: Performed By: #### T YS #### [facility] [address] [place] [address] [employer] Specialist: Mario Anne MD ALT [Catalytic activity/Vol] 15 U/L Normal 5-33 [facility] Comment on above: Performed By: #### T YS #### [facility] [address] [place], [place] [phone] [employer] Specialist: Mario Anne MD Anion gap [Moles/Vol] 13 mmol/L Normal 9-17 [facility] Comment on above: Performed By: #### T YS #### [facility] [address] [place], [place] [phone] [employer] Specialist: Mario Anne MD AST [Catalytic activity/Vol] 11 U/L Normal <32 [facility] Comment on above: Performed By: #### T YS #### [facility] [address] [place], [place] [phone] [employer] Specialist: Mario Anne MD Bilirubin Ql (U) 0.56 mg/dL Normal 0.3-1.2 [facility] [place] Comment on above: Performed By: #### T YS #### [facility] [address] [place], [place] [phone] [employer] Specialist: Mario Anne MD BUN/CRE Ratio 9 Normal 9-[address] [facility] Comment on above: Performed By: #### T YS #### [facility] [address] [place], [place] [phone] [employer] Specialist: Mario Anne MD Calcium [Mass/Vol] 8.5 mg/dL Low 8.6-10.4 [facility] Comment on above: Performed By: #### T YS #### [facility] [address] [place], [place] [phone] [employer] Specialist: Mario Anne MD Chloride [Moles/Vol] 101 mmol/L Normal 98-107 [facility] Comment on above: Performed By: #### T YS #### [facility] [address] [place], [place] [phone] [employer] Specialist: Mario Anne MD CO2 [Moles/Vol] 20 mmol/L Normal 20-31 [facility] Comment on above: Performed By: #### T YS #### [facility] [address] [place], [place] [phone] [employer] Specialist: Mario Anne MD Creatinine [Mass/Vol] 0.80 mg/dL Normal 0.50-0.90 [facility] Comment on above: Performed By: #### T YS #### [facility] [address] [place], [place] [phone] [employer] Specialist: Mario Anne MD GFR, Amer >60 Normal >60 [facility] [place] Comment on above: Performed By: #### T YS #### [facility] [address] [place], [place] [phone] [employer] Specialist: Mario Anne MD GFR,non Amer >60 Normal >60 [facility] Comment on above: Performed By: #### T YS #### [facility] [address] [place], [place] [phone] [employer] Specialist: Mario Anne MD Glucose [Mass/Vol] 121 mg/dL High 70-99 [facility] Comment on above: Performed By: #### T YS #### [facility] [address] [place], [place] [phone] [employer] Specialist: Mario Anne MD Potassium [Moles/Vol] 3.4 mmol/L Low 3.7-5.3 [facility] Comment on above: Performed By: #### T YS #### [facility] [address] [place] [address] [employer] Specialist: Mario Anne MD Protein [Mass/Vol] 5.7 g/dL Low 6.4-8.3 [facility] Comment on above: Performed By: #### T YS #### [facility] [address] [place], [place] 4538383 [employer] Specialist: Mario Anne MD Sodium [Moles/Vol] 134 mmol/L Low 135-144 [facility] Comment on above: Performed By: #### T YS #### [facility] [address] [place] [address] Network [employer] Specialist: Mario Anne MD Staging: Normal [facility] Comment on above: Result Comment: Stag e 1: Some kidney damage normal GFR Stage 2: Mild kidney damage GFR 60-89 Stage 3: Moderate kidney damage GFR 30-59 Stage 4: Severe kidney damage GFR 15-29 Stage 5: Severe kidney damage GFR <15 ESRD - chronic treatment by dialysis or transplant Performed By: #### T YS #### [facility] [address] [place] [phone] [employer] Specialist: Mario Anne MD Urea nitrogen [Mass/Vol] 7 mg/dL Normal 6-20 [facility] Comment on above: Performed By: #### T YS #### [facility] [address] [place] [address] [employer] Specialist: Mario Anne MD Comprehensive Metabolic Pane l w/ Reflex to on 11-29-2018 Albumin [Mass/Vol] 3.1 g/dL Low 3.5 - 5.2 g/dL [place] Albumin/Globulin [Mass ratio] 1.2 {ratio} [place] ALP [Catalytic activity/Vol] 38 U/L 35 - 104 U/L [place] ALT [Catalytic activity/Vol] 15 U/L 5 - 33 U/L [place] Anion gap [Moles/Vol] 13 mmol/L 9 - 17 mmol/L [place] AST [Catalytic activity/Vol] 11 U/L <32 [place] Bilirubin Ql (U) 0.56 mg/dL 0.3 - 1.2 mg/dL [place] Bun/Cre Ratio 9 [place] Calcium [Mass/Vol] 8.5 mg/dL Low 8.6 - 10. 4 mg/dL [place] Chloride [Moles/Vol] 101 mmol/L 98 - 10 7 mmol/L [place] CO2 [Moles/Vol] 20 mmol/L 20 - 31 mmol/L [place] Creatinine [Mass/Vol] 0.8 mg/dL 0.5 - 0.9 mg/dL [place] GFR >60 >60 mL/min [place] GFR Non- >60 >60 mL/min [place] Glucose [Mass/Vol] 121 mg/dL High 70 - 99 mg/dL [place] Interpretation and review of laboratory results Abnormal [place] Potassium [Moles/Vol] 3.4 mmol/L Low 3.7 - 5.3 mmol/L [place] Protein [Mass/Vol] 5.7 g/dL Low 6.4 - 8.3 g/dL [place] Sodium [Moles/Vol] 134 mmol/L Low 135 - 144 mmol/L [place] Urea nitrogen [Mass/Vol] 7 mg/dL 6 - 20 mg/dL [place] Factor II Activityon 019 Factor II Activity 120 % Normal 50-150 [facility] Comment on above: Performed By: #### C BC #### [facility] [address] [place] [address] Network [employer] Specialist: Mario Anne MD Factor V Activityon 11-30-19 19 Factor V Activity 120 % Normal 50-150 [facility] Comment on above: Performed By: #### C BC #### [facility] [address] [place] [address] Network [employer] Specialist: Mario Anne MD Lupus Anticoagulanton 2018 Dilute Alexandr Viper Negative Normal NLUP [facility] Comment on above: Performed By: #### C BC #### [facility] [address] [place] [address] [employer] Specialist: Mario Anne MD Magnesiumon 11-29-2018 Magnesium [Mass/Vol] 1.9 mg/dL Normal 1.6-2.6 [facility] Comment on above: Performed By: #### T YS #### [facility] [address] [place] [address] Network [employer] Specialist: Mario Anne MD Magnesium [Mass/Vol] 1.9 mg/dL 1.6 - 2 .6 mg/dL [place] Metabolic Panelon 11-29-2018 GFR/1.73 sq M predicted among non-blacks MDRD (S/P/Bld) [Vol rate/Area] [place] Comment on above: Average GFR for 20-2 9 years old: 116 mL/min/1.73sq m Chronic Kidney Disease: <60 mL/min/1.73sq m Kidney failure: <15 mL/min/1.73sq m eGFR calculated using average adult body mass. Additional eGFR calculator available at: http://www.[employer]/multiple_crcl_2012.htm Stage 1: Some kidney damage normal GFR [...] Nba Thomas MD 11/29/18 Final result Normal [facility] No retained products demonstrated. [place], [place] Incoming Radiant Results From [employer] - 11/29/2018 12:12 AM EDT EXAMINATION: PELVIC ULTRASOUND 11/28/2018 TECHNIQUE: Transabdominal pelvic ultrasound COMPARISON: None HISTORY: ORDERING SYSTEM PROVIDED HISTORY: Rule out retained products of conception FINDINGS: No intrauterine gestational sac is identified. The endometrium measures up to 6.7 mm in thickness. No retained products of conception are demonstrated. IMPRESSION: No retained products demonstrated. [place] EXAMINATION: PELVIC ULTRASOUND 11/28/2018 TECHNIQUE: Transabdominal pelvic ultrasound COMPARISON: None HISTORY: ORDERING SYSTEM PROVIDED HISTORY: Rule out retained products of conception FINDINGS: No intrauterine gestational sac is identified. The endometrium measures up to 6.7 mm in thickness. No retained products of conception are demonstrated. [facility] VL DUP LOWER EXTREMITY VENOU S BILATERALon 11-29-2018 [place], [employer] Incoming Cardio Results From [employer] - 11/29/2018 3:57 PM EDT [facility] Vascular Lower Extremities DVT Study Procedure Patient Name TOMY Date of Study 11/29/2018 DEION Lopez Date of 1995 Gender Female Age 23 year(s) Race Room Number 0328 Corporate ID [id number] # Patient Acct [id number] # MR # [id number] Clean Up Person CARLOS Carey Interpreting Physician Matt Mayer MD [...] !Phasic! ! ! + ------+------+------+- --------- + [facility], [facility] Vascular Lower Extremities DVT Study Procedure Patient Name TOMY Date of Study 11/29/2018 DEION L Date of 1995 Gender Female Age 23 year(s) Race Room Number 0328 Corporate ID [id number] # Patient Acct [id number] # MR # [id number] Clean Up Person CARLOS Carey Interpreting Physician Matt Mayer MD [...] !Popliteal !Phasic! ! ! + ------+------+------+- ---------+ [facility] APTTon 11-28-2018 aPTT Coag (Bld) [Time] 21.5 s Low 23.2-34.4 [facility] Comment on above: Performed By: #### L IP, CMPX, PT, CDP, PTT ####[facility] [place] [address] lab Director: Mario Anne MD aPTT Coag (Bld) [Time] 21.5 s Low [facility] [place] Blood gas, venouson 11-29-19 19 Marco Test NOT REPORTED [facility] aPTT Coag (Bld) [Time] NOT REPORTED [facility] Carboxyhemoglobin 0 - 5 % [facility] FIO2 NOT REPORTED [facility] HCO3, Venous 20.5 mmol/L Low 24 - 30 mmol/L [facility] Interpretation and review of laboratory results Abnormal [place] Methemoglobin NOT REPORTED 0 - 1.9 % [facility] Mode NOT REPORTED [facility], [place] Negative Base Excess, [place] 2.9 mmol/L High 0 - 2 mmol/L [facility] [place] NOTIFICATION NOT REPORTED [facility] NOTIFICATION TIME NOT REPORTED [facility] O2 Device/Flow/% NOT REPORTED [place] Oxygen saturation in Blood 40.2 % Low 60 - 85 % [facility] [place] Oxyhemoglobin NOT REPORTED 95 - 98 % [facility] [place] pCO2, [place] 31.9 Low [facility] [place] pCO2, [place], Temp Adj NOT REPORTED [facility] [place] Peep/Cpap NOT REPORTED [facility] [place] pH, [place] 7.425 High [facility] [place] pH, [place], Temp Adj NOT REPORTED [facility] [place] pO2, [place] 22.2 Low [facility] [place] pO2, [place], Temp Adj NOT REPORTED [facility] [place] Positive Base Excess, [place] NOT REPORTED 0 - 2 mmol/L [place] PSV NOT REPORTED [place] Pt. Position NOT REPORTED [place] Sample Site NOT REPORTED [place] Set Rate NOT REPORTED [place] Text for Respiratory NOT REPORTED [place] Total Hb NOT REPORTED 12 - 16 g/dl [place] Total Rate NOT REPORTED [place] VT NOT REPORTED [place] CBC auto differentialon 11-19 Basophils (Bld) [#/Vol] 0.03 10*3/uL [place] Basophils/100 WBC (Bld) 0 % 0 - 2 % [place] Differential Type NOT REPORTED [place] Eosinophils (Bld) [#/Vol] 0.17 10*3/uL [place] Eosinophils/100 WBC (Bld) 1 % 1 - 4 % [place] Erythrocyte distribution width (RBC) [Ratio] 13.3 % 11.8 - 14.4 % [place] Hematocrit (Bld) [Volume fraction] 30.5 % Low 36.3 - 47.1 % [place] Hemoglobin (Bld) [Mass/Vol] 9.6 g/dL Low 11.9 - 15.1 g/dL [place] Immature granulocytes (Bld) [#/Vol] 1 % High 0 [place] Immature granulocytes (Bld) [#/Vol] 0.09 10*3/uL [place] Interpretation and review of laboratory results Abnormal [place] Lymphocytes (Bld) [#/Vol] 0.80 10*3/uL Low [place] Lymphocytes/100 WBC (Bld) 5 % Low 24 - 43 % [place] MCH (RBC) [Entitic mass] 28.1 pg 25.2 - 33.5 pg [place] MCHC (RBC) [Mass/Vol] 31.5 g/dL 28.4 - 34.8 g/dL [place] MCV (RBC) [Entitic vol] 89.2 fL 82.6 - 102.9 fL [place] Monocytes (Bld) [#/Vol] 0.65 10*3/uL [place] Monocytes/100 WBC (Bld) 4 % 3 - 12 % [place] Platelet mean volume (Bld) [Entitic vol] 9.9 fL 8.1 - 13.5 fL [place] Platelets (Bld) [#/Vol] 305 10*3/uL [place] Platelets (Bld) [#/Vol] NOT REPORTED [place] RBC (Bld) [#/Vol] 3.42 10*6/uL Low 3.95 - 5.1 1 m/uL [place] RBC morphology finding Nom (Bld) NOT REPORTED [place] Segmented neutrophils/100 WBC (Bld) 89 % High 36 - 65 % [place] Segs Absolute 15.13 High [place] WBC (Bld) [#/Vol] 16.9 10*3/uL [place] WBC (Bld) [#/Vol] 0.0 10*3/uL 0.0 per 10 0 WBC [place] WBC Morphology NOT REPORTED [place] CBC with Diffon 11-28-2018 Abs. Basophil 0.03 k/uL Normal 0.00-0.[address] [facility] Comment on above: Performed By: #### L IP, CMPX, PT, CDP, PTT ####[address] [place] [phone] lab Director: Mario Anne MD Abs.Imm.Granulocyte 0.09 k/uL Normal 0.00-0.30 [facility] Comment on above: Performed By: #### L IP, CMPX, PT, CDP, PTT ####[address] [place] [phone] lab Director: Mario Anne MD Abs.Neutrophil (Seg) 15.13 k/uL High 1.50-8.10 [facility] Comment on above: Performed By: #### L IP, CMPX, PT, CDP, PTT ####[address] , [facility]83 [facility] Director: Mario Anne MD Basophils/100 WBC (Bld) 0 % Normal 0-2 [facility] Comment on above: Performed By: #### L IP, CMPX, PT, CDP, PTT ####[address] , [facility]83 Lab Director: Mario Anne MD Eosinophils (Bld) [#/Vol] 0.17 10*3/uL Normal 0.00-0.44 [facility] Comment on above: Performed By: #### L IP, CMPX, PT, CDP, PTT ####[address] , [facility]83 lab Director: Mario Anne MD Eosinophils/100 WBC (Bld) 1 % Normal 1-4 [facility] Comment on above: Performed By: #### L IP, CMPX, PT, CDP, PTT ####[address] , [facility]83 Lab Director: Mario Anne MD Erythrocyte distribution width (RBC) [Ratio] 13.3 % Normal 11.8-14.4 [facility] Comment on above: Performed By: #### L IP, CMPX, PT, CDP, PTT ####[address] , [facility]83 Lab Director: Mario Anne MD Hematocrit (Bld) [Volume fraction] 30.5 % Low 36.3-47.1 [facility] Comment on above: Performed By: #### L IP, CMPX, PT, CDP, PTT ####[address] , [place] [phone] Lab Director: Mario Anne MD Hemoglobin (Bld) [Mass/Vol] 9.6 g/dL Low 11.9-15.1 [facility] Comment on above: Performed By: #### L IP, CMPX, PT, CDP, PTT ####[address] , [place] [address])[phone] Director: Mario Anne MD Immature granulocytes (Bld) [#/Vol] 1 % High 0 [facility] Comment on above: Performed By: #### L IP, CMPX, PT, CDP, PTT ####[address] , [facility]83 lab Director: Mario Anne MD Lymphocytes (Bld) [#/Vol] 0.80 10*3/uL Low 1.10-3.70 [facility] Comment on above: Performed By: #### L IP, CMPX, PT, CDP, PTT ####[address] , [facility]83[facility])[phone] Director: Mario Anne MD Lymphocytes/100 WBC (Bld) 5 % Low 24-43 [facility] Comment on above: Performed By: #### L IP, CMPX, PT, CDP, PTT ####[address] , [facility]31([facility])[phone] Director: Mario Anne MD MCH (RBC) [Entitic mass] 28.1 pg Normal 25.2-33.5 [facility] Comment on above: Performed By: #### L IP, CMPX, PT, CDP, PTT ####[address] , [facility]04([facility])[phone] Director: Mario Anne MD MCHC (RBC) [Mass/Vol] 31.5 g/dL Normal 28.4-34.8 [facility] Comment on above: Performed By: #### L IP, CMPX, PT, CDP, PTT ####[address] , [place] [phone] Lab Director: Mario Anne MD MCV (RBC) [Entitic vol] 89.2 fL Normal 82.6-102.9 [facility] Comment on above: Performed By: #### L IP, CMPX, PT, CDP, PTT ####[address] [place] [address]([facility])[phone] Director: Mario Anne MD Monocytes (Bld) [#/Vol] 0.65 10*3/uL Normal 0.10-1.20 [facility] Comment on above: Performed By: #### L IP, CMPX, PT, CDP, PTT ####[address] , [place] [phone] Lab Director: Mario Anne MD Monocytes/100 WBC (Bld) 4 % Normal 3-12 [facility] Comment on above: Performed By: #### L IP, CMPX, PT, CDP, PTT ####[address] , [facility]01([facility])[phone] Director: Mario Anne MD Neutrophil (Seg) 89 % High 36-65 [facility] [place] Comment on above: Performed By: #### L IP, CMPX, PT, CDP, PTT ####[address] , [place] 9305183 Lab Director: Mario Anne MD NRBC Automated 0.0 per 100 WBC Normal 0.0 [facility] Comment on above: Performed By: #### L IP, CMPX, PT, CDP, PTT ####[address] , [facility]59([facility])[phone] Director: Mario Anne MD Platelet mean volume (Bld) [Entitic vol] 9.9 fL Normal 8.1-13.5 [facility] Comment on above: Performed By: #### L IP, CMPX, PT, CDP, PTT ####[address] , [place] [phone] Lab Director: Mario Anne MD Platelets (Bld) [#/Vol] 305 10*3/uL Normal 138-453 [facility] Comment on above: Performed By: #### L IP, CMPX, PT, CDP, PTT ####[address] , [place] [phone] Director: Mario Anne MD RBC (Bld) [#/Vol] 3.42 10*6/uL Low 3.95-5.11 [facility] Comment on above: Performed By: #### L IP, CMPX, PT, CDP, PTT ####[address] , [place] [phone] Director: Mario Anne MD WBC (Bld) [#/Vol] 16.9 10*3/uL High 3.5-11.3 [facility] Comment on above: Performed By: #### L IP, CMPX, PT, CDP, PTT ####[address] , [place] [address])[phone] Director: Mario Anne MD Auto Diff Performed NOT REPORTED Normal [facility] Comment on above: Performed By: #### L IP, CMPX, PT, CDP, PTT ####[address] , [place] [phone] Director: Mario Anne MD Platelets (Bld) [#/Vol] NOT REPORTED Normal [facility] Comment on above: Performed By: #### L IP, CMPX, PT, CDP, PTT ####[address] [place] [address] Lab Director: Mario Anne MD RBC morphology finding Nom (Bld) NOT REPORTED Normal [facility] Comment on above: Performed By: #### L IP, CMPX, PT, CDP, PTT ####[address] , [place] [phone] Lab Director: Mario Anne MD WBC Morphology NOT REPORTED Normal [facility] [place] Comment on above: Performed By: #### L IP, CMPX, PT, CDP, PTT ####[facility] [place] [address] Lab Director: Mario Anne MD CT ABDOMEN PELVIS WO TAZ Ton 11-28-2018 CT ABDOMEN PELVIS WO CONTRAST [...] Graeme Stewart MD 11/28/18 Final result Normal [facility] EXAMINATION: CT OF T HE ABDOMEN AND PELVIS WITHOUT CONTRAST 11/28/2018 8:25 [...] No lymphadenopathy within the abdomen or pelvis. [place] No evidence for acut e intra-abdominal or intrapelvic pathology. No bowel obstruction or inflammation. No free intraperitoneal air or fluid. No evidence for urinary obstruction. Normal appendix. 2.5 cm exophytic lesion arising from the interpolar region of the right kidney, indeterminate. Further evaluation with renal ultrasound is recommended on a nonemergent/outpatient basis. [place], [place] Incoming Radiant Results From [employer] - 11/28/2018 8:59 PM EDT EXAMINATION: CT [...] ultrasound is recommended on a nonemergent/outpatient basis. [facility] [place] Comp Metabolic Pr/rfx MGon 0 11-28-2018 AST [Catalytic activity/Vol] 23 U/L Normal <32 [facility] Comment on above: Performed By: #### L IP, CMPX, PT, CDP, PTT ####[address] [place] [address] Lab Director: Mario Anne MD (cont.) [facility] Comment on above: Result Comment: Aver age GFR for 20-29 years old: 116 mL/min/1.73sq m Chronic Kidney Disease: <60 mL/min/1.73sq m Kidney failure: <15 mL/min/1.73sq m eGFR calculated using average adult body mass. Additional eGFR calculator available at: http://www.[employer]/multiple_crcl_2012.htm Performed By: #### L IP, CMPX, PT, CDP, PTT ####[address] [place] [address] Lab Director: Mario Anne MD Albumin [Mass/Vol] 3.7 g/dL Normal 3.5-5.2 [facility] Comment on above: Performed By: #### L IP, CMPX, PT, CDP, PTT ####[address] [place] [address] Lab Director: Mario Anne MD Albumin/Globulin [Mass ratio] 1.2 {ratio} Normal 1.0-2.5 [facility] Comment on above: Performed By: #### L IP, CMPX, PT, CDP, PTT ####[address] [place] [address] Lab Director: Mario Anne MD Alkaline Phos 47 U/L Normal 35-[address] [facility] Comment on above: Performed By: #### L IP, CMPX, PT, CDP, PTT ####[address] [place] [address] Lab Director: Mario Anne MD ALT [Catalytic activity/Vol] 18 U/L Normal 5-33 [facility] Comment on above: Performed By: #### L IP, CMPX, PT, CDP, PTT ####[address] [place], [place] [id number] [facility] Director: Mario Anne MD Anion gap [Moles/Vol] 16 mmol/L Normal 9-17 [facility] Comment on above: Performed By: #### L IP, CMPX, PT, CDP, PTT ####[address] , [place] 968[address]83 lab Director: Mario Anne MD Bilirubin Ql (U) 0.33 mg/dL Normal 0.3-1.2 [facility] [place] Comment on above: Performed By: #### L IP, CMPX, PT, CDP, PTT ####[address] , [place] [phone] lab Director: Mario Anne MD BUN/CRE Ratio 10 Normal 9-[address] [facility] Comment on above: Performed By: #### L IP, CMPX, PT, CDP, PTT ####[address] , [place] [phone] lab Director: Mario Anne MD Calcium [Mass/Vol] 9.1 mg/dL Normal 8.6-10.4 [facility] Comment on above: Performed By: #### L IP, CMPX, PT, CDP, PTT ####[address] , [place] [phone] lab Director: Mario Anne MD Chloride [Moles/Vol] 102 mmol/L Normal 98-107 [facility] Comment on above: Performed By: #### L IP, CMPX, PT, CDP, PTT ####[address] , [place] [phone] lab Director: Mario Anne MD CO2 [Moles/Vol] 20 mmol/L Normal 20-31 [facility] Comment on above: Performed By: #### L IP, CMPX, PT, CDP, PTT ####[address] , [place] [phone] lab Director: Mario Anne MD Creatinine [Mass/Vol] 0.81 mg/dL Normal 0.50-0.90 [facility] Comment on above: Performed By: #### L IP, CMPX, PT, CDP, PTT ####[address] , [place] [id number] Lab Director: Mario Anne MD GFR, Amer >60 Normal >60 [facility] Comment on above: Performed By: #### L IP, CMPX, PT, CDP, PTT ####[address] , [place] [id number] Lab Director: Mario Anne MD GFR,non Amer >60 Normal >60 [facility] Comment on above: Performed By: #### L IP, CMPX, PT, CDP, PTT ####[address] , [place] [id number] Lab Director: Mario Anne MD Glucose [Mass/Vol] 93 mg/dL Normal 70-99 [facility] Comment on above: Performed By: #### L IP, CMPX, PT, CDP, PTT ####[address] , [place] [id number] Lab Director: Mario Anne MD Potassium [Moles/Vol] 3.8 mmol/L Normal 3.7-5.3 [facility] Comment on above: Performed By: #### L IP, CMPX, PT, CDP, PTT ####[address] , [place] [id number] Lab Director: Mario Anne MD Protein [Mass/Vol] 6.9 g/dL Normal 6.4-8.3 [facility] Comment on above: Performed By: #### L IP, CMPX, PT, CDP, PTT ####[address] [place] [address] Lab Director: Mario Anne MD Sodium [Moles/Vol] 138 mmol/L Normal 135-144 [facility] Comment on above: Performed By: #### L IP, CMPX, PT, CDP, PTT ####[facility] [place] [address] lab Director: Mario Anne MD Staging: Normal [facility] Comment on above: Result Comment: Stag e 1: Some kidney damage normal GFR Stage 2: Mild kidney damage GFR 60-89 Stage 3: Moderate kidney damage GFR 30-59 Stage 4: Severe kidney damage GFR 15-29 Stage 5: Severe kidney damage GFR <15 ESRD - chronic treatment by dialysis or transplant Performed By: #### L IP, CMPX, PT, CDP, PTT ####[facility] [place] [address] lab Director: Mario Anne MD Urea nitrogen [Mass/Vol] 8 mg/dL Normal 6-20 [facility] Comment on above: Performed By: #### L IP, CMPX, PT, CDP, PTT ####[facility] [place] [address] lab Director: Mario Anne MD Comprehensive Metabolic Pane l w/ Reflex to MGon 11-28-2018 Albumin [Mass/Vol] 3.7 g/dL 3.5 - 5.2 g/dL [place] Albumin/Globulin [Mass ratio] 1.2 {ratio} [place] ALP [Catalytic activity/Vol] 47 U/L 35 - 104 U/L [place] ALT [Catalytic activity/Vol] 18 U/L 5 - 33 U/L [place] Anion gap [Moles/Vol] 16 mmol/L 9 - 17 mmol/L [place] AST [Catalytic activity/Vol] 23 U/L <32 [place] Bilirubin Ql (U) 0.33 mg/dL 0.3 - 1.2 mg/dL [place] Bun/Cre Ratio 10 [place] Calcium [Mass/Vol] 9.1 mg/dL 8.6 - 10. 4 mg/dL [place] Chloride [Moles/Vol] 102 mmol/L 98 - 10 7 mmol/L [place] CO2 [Moles/Vol] 20 mmol/L 20 - 31 mmol/L [place] Creatinine [Mass/Vol] 0.81 mg/dL 0.5 - 0.9 mg/dL [place] GFR >60 >60 mL/min [place] GFR Non- >60 >60 mL/min [place] Glucose [Mass/Vol] 93 mg/dL 70 - 99 mg/dL [place] Potassium [Moles/Vol] 3.8 mmol/L 3.7 - 5.3 mmol/L [place] Protein [Mass/Vol] 6.9 g/dL 6.4 - 8.3 g/dL [place] Sodium [Moles/Vol] 138 mmol/L 135 - 144 mmol/L [place] Urea nitrogen [Mass/Vol] 8 mg/dL 6 - 20 mg/dL [place] Herpes Type I/II, IgGon 11-19 Herpes Type I, IgG 1.22 High <0.91 [facility] Comment on above: Result Comment: Reference Range: <=0.90 Negative 0.91-1.09 Equivocal >=1.10 Positive Performed By: #### C BC #### [facility] [address] [place] [address] [place] [address] Network Applications Specialist: Mario Anne MD Herpes Type II, IgG 0.56 Normal <0.[address] [place] [address] Comment on above: Result Comment: Reference Range: <=0.90 Negative 0.91-1.09 Equivocal >=1.10 Positive Performed By: #### C BC #### [facility] [address] [place] [address] Network Applications Specialist: Mario Anne MD Herpes Type I/II,IgMon 11-28 Herpes Type I/II,IgM 1.09 High <0.91 [facility] Comment on above: Result Comment: Reference Range: <=0.90 Negative 0.91-1.09 Equivocal >=1.10 Positive If positive, an IgM result indicates a current or recent infection. This test does not differentiate type I from type II. No current reference test is available for this. If IgG tests are ordered and are negative, consider retesting in 2 to 3 weeks. Performed By: #### C BC #### [facility] [address] [place] [address] Network Applications Specialist: Mario Anne MD Lactate, Sepsison 11-28-2018 Lactic Acid, Sepsis 1.8 mmol/L Normal 0.5-1.9 [facility] Comment on above: Performed By: #### T YS #### [address] [place] [address] Network [employer] Specialist: Mario Anne MD Lactic Acid,Sep Wbld NOT REPORTED Normal 0.5-1.9 [facility] Comment on above: Performed By: #### T YS #### [address] [place] [address] Network Applications Specialist: Mario Anne MD Lactic Acid, Sepsis 1.8 mmol/L 0.5 - 1. 9 mmol/L [place] Lactic Acid, Sepsis, Whole Blood NOT REPORTED 0.5 - 1.9 mmol/L [place] Lipaseon 11-28-2018 Lipase [Catalytic activity/Vol] 21 U/L Normal 13-60 [facility] Comment on above: Performed By: #### L IP, CMPX, PT, CDP, PTT ####[address] [place] [address] Lab Director: Mario Anne MD Lipase [Catalytic activity/Vol] 21 U/L 13 - 60 U/L [place] Lupus Anticoagulanton 2018 Antiphospholipid IgA 0.8 APU Normal <12 [facility] Comment on above: Result Comment: Reference Range: 12 - 15 Equivocal >15 Positive Performed By: #### C BC #### [address] [place], [place] [id number] Network Applications Specialist: Mario Anne MD Antiphospholipid IgG 3.0 GPU Normal <20 [facility] Comment on above: Result Comment: Reference Range: 20.0 - 29.9 Low Positive 30.0 - 79.9 Moderate Positive >79.9 High Positive Performed By: #### C BC #### [facility] [address] [place] [address] Network Applications Specialist: Mario Anne MD Antiphospholipid IgM 6.6 MPU Normal <20 [facility] Comment on above: Result Comment: Reference Range: 20.0 - 29.9 Low Positive 30.0 - 79.9 Moderate Positive >79.9 High Positive Performed By: #### C BC #### [facility] [address] [place] [address] Network Applications Specialist: Mario Anne MD Metabolic Panelon 11-28-2018 GFR/1.73 sq M predicted among non-blacks MDRD (S/P/Bld) [Vol rate/Area] [place] Comment on above: Average GFR for 20-2 9 years old: 116 mL/min/1.73sq m Chronic Kidney Disease: <60 mL/min/1.73sq m Kidney failure: <15 mL/min/1.73sq m eGFR calculated using average adult body mass. Additional eGFR calculator available at: [email or web address]_[email or web address] Stage 1: Some kidney damage normal GFR Stage 2: Mild kidney damage GFR 60-89 Stage 3: Moderate kidney damage GFR 30-59 Stage 4: Severe kidney damage GFR 15-29 Stage 5: Severe kidney damage GFR <15 ESRD - chronic treatment by dialysis or transplant Microscopic Urinalysison Amorphous, UA NOT REPORTED None [facility] [place] [place] Bacteria, UA NOT REPORTED None [facility] th- [place] Casts UA NOT REPORTED /LPF [facility], [place] Crystals UA NOT REPORTED None /HPF [facility] [place] Epithelial Cells UA 2 TO 5 [facility], [place] Mucus, UA NOT REPORTED None [place] Other Observations UA NOT REPORTED NOT REQ. M [place], [place] RBC (U) [#/Vol] 5 TO 10 [facility] [place], [place] Renal Epithelial, Urine NOT REPORTED 0 /HPF [place] Trichomonas, UA NOT REPORTED None [place] WBC, UA 10 TO 20 [place] Yeast, UA NOT REPORTED None [place] - [place] Otheron 11-28-2018 Interpretation and review of laboratory results Abnormal [place] PTon 11-28-2018 INR Coag (PPP) [Relative time] 1.3 {INR} High 0.9-1.2 [facility] Comment on above: Performed By: #### L IP, CMPX, PT, CDP, PTT ####[facility] [place] [address] lab Director: Mario Anne MD PT Coag (PPP) [Time] 13.4 s High 9.7-12.2 [facility] Comment on above: Performed By: #### L IP, CMPX, PT, CDP, PTT ####[facility] [place] [address] lab Director: Mario Anne MD Parvovirus B19 Panelon 11-28 Parvovirus IgG B19 6.29 IV High <=0.89 [facility] Comment on above: Result Comment: (NOT [...] time. Performed By: #### C BC #### [facility] [address] [place] [address] Network Applications Specialist: Mario Anne MD Parvovirus IgM B19 0.15 IV Normal <=0.89 [facility] Comment on above: Result Comment: (NOT [...] levels of specific IgM antibodies. Performed by [employer], [facility] [id number] [email or web address], Fernando Valencia MD, Lab. Director Performed By: #### C BC #### [facility] [address] [place] [address] Network Applications Specialist: Mario Anne MD Protein C Antigenicon 2018 Protein [Mass/Vol] 83 % Normal 63-153 [facility] Comment on above: Result Comment: (NOT E) INTERPRETIVE INFORMATION: Protein C, Total Antigen Patients on warfarin may have decreased protein C values. Patients should be off warfarin therapy for two weeks for accurate measurement of protein C. Access complete set of age- and/or gender-specific reference intervals for this test in the Clinical Data Test Directory ([employer]). Performed by [employer], [facility] [place], [place] [id number] [email or web address], Fernando Valencia MD, Lab. Director Performed By: #### C BC #### [facility] [address] [place] [address] Network Applications Specialist: Mario Anne MD Protein S, Antigenicon 11-28 Protein [Mass/Vol] 71 % Normal 63-126 [facility] Comment on above: Result Comment: (NOT E) INTERPRETIVE INFORMATION: Protein S, Total Antigen Patients on warfarin may have decreased protein S values. Patients should be off warfarin therapy for two weeks for accurate measurement of protein S. Access complete set of age- and/or gender-specific reference intervals for this test in the [employer] Laboratory Test Directory ([employer]). Performed by [employer], [address] [place] [id number] [email or web address], Fernando Valencia MD, Lab. Director Performed By: #### C BC #### [facility] [address] [place] [address] Network Applications Specialist: Mario Anne MD Protime-INRon 11-28-2018 INR Coag (PPP) [Relative time] 1.3 {INR} [place], [place] PT Coag (PPP) [Time] 13.4 s [place], [place] Rubella IgM, Abon 11-28-2018 Rubella IgM, Ab <10.0 Normal <=19.9 [facility] Comment on above: Result Comment: [...] the amount of antibody present. Performed by [employer], [address] [place] [id number] [email or web address], Fernando Valencia MD, Lab. Director Performed By: #### C BC #### [facility] [address] [place] [address] Network Applications Specialist: Mario Anne MD Urinalysison 11-28-2018 Bilirubin Urine Negative NEGATIVE [place], [place] Color, UA YELLOW YELLOW [place] Glucose, Ur Negative NEGATIVE [place] Interpretation and review of laboratory results Abnormal [place] Ketones Ql (U) Negative NEGATIVE [place] Leukocyte esterase Test strip Ql (U) SMALL Abnormal NEGATIVE [place] Nitrite, Urine Negative NEGATIVE [place] pH, UA 6.5 [place] Protein (U) [Mass/Vol] TRACE Abnormal NEGATIVE [place] Specific [place], UA 1.020 [place], [place] Turbidity UA CLEAR CLEAR [place] Urinalysis Comments NOT REPORTED [place] Urine Hgb 3+ Abnormal NEGATIVE [place] Urobilinogen, Urine Normal Normal [place] Urinalysis, Routineon 2018 Acetoacetic Acid,Ur Negative Normal NEG [facility] Comment on above: Performed By: #### T YS #### [facility] [address] [place] [address] Network Applications Specialist: Mario Anne MD Bilirubin, SemiQt,Ur Negative Normal NEG [facility] Comment on above: Performed By: #### T YS #### [facility] [address] [place] [address] [employer] Specialist: Mario Anne MD Color (U) YELLOW Normal [facility] Comment on above: Performed By: #### T YS #### [facility] [address] [place] [address] Network Applications Specialist: Mario Anne MD Glucose Ql (U) Negative Normal NEG [facility] Comment on above: Performed By: #### T YS #### [facility] [address] [place] [address] [place] [id number] [employer] Specialist: Mario Anne MD Hemoglobin, Ur 3+ Abnormal NEG [facility] Comment on above: Performed By: #### T YS #### [facility] [address] [place] [place] [phone] Network [employer] Specialist: Mario Anne MD Leukocyte esterase Test strip Ql (U) SMALL Abnormal NEG [facility] Comment on above: Performed By: #### T YS #### [address] [place], [place] [phone] [employer] Specialist: Mario Anne MD Nitrite,Ur Negative Normal NEG [facility] Comment on above: Performed By: #### T YS #### [facility] [address] [place] [address] [place] [address] Network [employer] Specialist: Mario Anne MD pH (U) 6.5 [pH] Normal 5.0-9.0 [facility] Comment on above: Performed By: #### T YS #### [facility] [address] [place] [address] [address], [place] [phone] [employer] Specialist: Mario Anne MD Protein Ql (U) TRACE Abnormal NEG [facility] Comment on above: Performed By: #### T YS #### [facility] [address] [place] [place], [place] [phone] [employer] Specialist: Mario Anne MD Specific gravity (U) [Rel density] 1.020 Normal 1.010-1.020 [facility] Comment on above: Performed By: #### T YS #### [facility] [address] [place] [address] [employer] Applications Specialist: Mario Anne MD Turbidity CLEAR Normal CLEAR [facility] Comment on above: Performed By: #### T YS #### [facility] [address] [place] [address] Network Applications Specialist: Mario Anne MD Urobilinogen,Ur Normal Normal NORM [facility] Comment on above: Performed By: #### T YS #### [facility] [address] [place] [phone] Network Applications Specialist: Mario Anne MD Comment NOT REPORTED Normal [facility] Comment on above: Performed By: #### T YS #### [facility] [address] [place] [phone] Network [employer] Specialist: Mario Anne MD Urinalysis,Microon 9 ----- Normal [facility] Comment on above: Performed By: #### T YS #### [facility] [address] [place] [phone] Network Applications Specialist: Mario Anne MD Epithelial cells LM.HPF (Urine sed) [#/Area] 2 TO 5 Normal 0-25 [facility] Comment on above: Performed By: #### T YS #### [facility] [address] [place] [phone] Network [employer] Specialist: Mario Anne MD RBC (U) [#/Vol] 5 TO 10 Normal 0-2 [facility] Comment on above: Performed By: #### T YS #### [facility] [address] [place], [facility]83 Network [employer] Specialist: Mario Anne MD WBC (U) [#/Vol] 10 TO 20 Normal 0-5 [facility] Comment on above: Performed By: #### T YS #### [facility] [address] [place] [address] Network Applications Specialist: Mario Anne MD Amorphous sediment LM Ql (Urine sed) NOT REPORTED Normal NONE [facility] Comment on above: Performed By: #### T YS #### [facility] [address] [place] [address] [employer] Specialist: Mario Anne MD Bacteria LM.HPF (Urine sed) [#/Area] NOT REPORTED Normal NONE [facility] Comment on above: Performed By: #### T YS #### [facility] [address] [place] [address] Network Applications Specialist: Mario Anne MD Casts LM.LPF (Urine sed) [#/Area] NOT REPORTED Normal [facility] Comment on above: Performed By: #### T YS #### [facility] [address] [place] [address] Network Applications Specialist: Mario Anne MD Crystals LM Nom (Urine sed) NOT REPORTED Normal NONE [facility] Comment on above: Performed By: #### T YS #### [facility] [address] [place] [address] Network Applications Specialist: Mario Anne MD Epithelial, Renal NOT REPORTED Normal 0 [facility] Comment on above: Performed By: #### T YS #### [facility] [address] [place] [address] Network Applications Specialist: Mario Anne MD Mucus Strands NOT REPORTED Normal NONE [facility] Comment on above: Performed By: #### T YS #### [facility] [address] [place] [address] Network Applications Specialist: Mario Anne MD Other Observations NOT REPORTED Normal NREQ [facility] Comment on above: Performed By: #### T YS #### [facility] [address] [place], [place] [phone] Network Applications Specialist: Mario Anne MD Trichomonas NOT REPORTED Normal NONE [facility] Comment on above: Performed By: #### T YS #### [facility] [address] [place] [address] Network Applications Specialist: Mario Anne MD Yeast LM Ql (Urine sed) NOT REPORTED Normal NONE [facility] Comment on above: Performed By: #### T YS #### [facility] [address] [place], [place] [phone] Network Applications Specialist: Mario Anne MD Venous Blood Gaseson 019 HCO3 (Bld) [Moles/Vol] 20.5 mmol/L Low 24.0-30.0 [facility] Comment on above: Performed By: #### V BG ####[facility] [place] [address] [facility] Director: Mario Anne MD Negative Base Excess 2.9 mmol/L High 0.0-2.0 [facility] Comment on above: Performed By: #### V BG ####[address] , [facility]83 [facility] Director: Mario Anne MD Oxygen (Bld) [Partial pressure] 22.2 mm[Hg] Low 30.0-50.0 [facility] Comment on above: Performed By: #### V BG ####[address] , [place] [phone] [facility] Director: Mario Anne MD Oxygen saturation in Blood 40.2 % Low 60.0-85.0 [facility] Comment on above: Performed By: #### V BG ####[facility] [place] , [facility]83 Lab Director: Mario Anne MD pCO2 31.9 Low 39-55 [facility] Comment on above: Performed By: #### V BG ####[facility] [place] [address] Lab Director: Mario Anne MD pH (Bld) 7.425 [pH] High 7.32-7.42 [facility] Comment on above: Performed By: #### V BG ####[address] [place] [address] Lab Director: Mairo Anne MD Marco Test NOT REPORTED Normal [facility] Comment on above: Performed By: #### V BG ####[address] [place] [address] Lab Director: Mario Anne MD Body Temp. NOT REPORTED Normal [facility] Comment on above: Performed By: #### V BG ####[address] [place] [address] Lab Director: Mario Anne MD Carboxy Hgb NOT REPORTED Normal 0-[address] [facility] Comment on above: Performed By: #### V BG ####[address] [place] [address] Lab Director: Mario Anne MD FIO2 NOT REPORTED Normal [facility] Comment on above: Performed By: #### V BG ####[address] [place] [address] Lab Director: Mario Anne MD Methemoglobin NOT REPORTED Normal 0.0-1.9 [facility] Comment on above: Performed By: #### V BG ####[address] [place] [address] Lab Director: Mario Anne MD Mode NOT REPORTED Normal [facility] Comment on above: Performed By: #### V BG ####[address] [place] [address] Lab Director: Mario Anne MD Notification Time NOT REPORTED Normal [facility] Comment on above: Performed By: #### V BG ####[address] [place] [address] Lab Director: Mario Anne MD Notification: NOT REPORTED Normal [facility] Comment on above: Performed By: #### V BG ####[address] , [place] [phone] Lab Director: Mario Anne MD O2 Device/Flow/% NOT REPORTED Normal [facility] Comment on above: Performed By: #### V BG ####[address] [place] [address] Lab Director: Mario Anne MD Oxyhemoglobin NOT REPORTED Normal 95.0-98.0 [facility] Comment on above: Performed By: #### V BG ####[address] [place] [address] Lab Director: Mario Anen MD Pco2 Adj'd for Temp. NOT REPORTED Normal 39.0-55.0 [facility] Comment on above: Performed By: #### V BG ####[address] [place] [address] Lab Director: Mario Anne MD PEEP/CPAP NOT REPORTED Normal [facility] Comment on above: Performed By: #### V BG ####[address] [place] [address] Lab Director: Mario Anne MD pH Adjst'd for Temp. NOT REPORTED Normal 7.320-7.420 [facility] Comment on above: Performed By: #### V BG ####[address] [place] [address] Lab Director: Mario Anne MD pO2 Adj'd for Temp. NOT REPORTED Normal 30.0-50.0 [facility] Comment on above: Performed By: #### V BG ####[address] , [place] 1746383 Lab Director: Mario Anne MD Positive Base Excess NOT REPORTED Normal 0.0-2.0 [facility] Comment on above: Performed By: #### V BG ####[address] [place] [address] Lab Director: Mario Anne MD PSV NOT REPORTED Normal [facility] Comment on above: Performed By: #### V BG ####[facility] [place] [address] Lab Director: Mario Anne MD Pt. Position NOT REPORTED Normal [facility] Comment on above: Performed By: #### V BG ####[facility] [place] [address] Lab Director: Mario Anne MD Set Rate NOT REPORTED Normal [facility] Comment on above: Performed By: #### V BG ####[facility] [place] [address] Lab Director: Mario Anne MD Site Drawn NOT REPORTED Normal [facility] Comment on above: Performed By: #### V BG ####[address] , [place] 88[address]83 Lab Director: Mario Anne MD Text for Respiratory NOT REPORTED Normal [facility] Comment on above: Performed By: #### V BG ####[address] [place] [address] Lab Director: Mario Anne MD Total Hb NOT REPORTED Normal 12.0-16.0 [facility] Comment on above: Performed By: #### V BG ####[address] [place] [address] Lab Director: Mario Anne MD Total Rate NOT REPORTED Normal [facility] Comment on above: Performed By: #### V BG ####[address] , [place] [id number] Lab Director: Mario Anne MD VT NOT REPORTED Normal [facility] Comment on above: Performed By: #### V BG ####[address] [place] [address] Lab Director: Mario Anne MD XR CHEST PORTABLEon [...] Matt Mayer MD 11/28/18 Final result Normal [facility] Cardiomegaly and congestion magnified by technique. No airspace consolidation. [place], [place], M[facility]pn Incoming Radiant Results From [employer] - 11/28/2018 8:56 PM EDT EXAMINATION: ONE XRAY VIEW OF THE CHEST 11/28/2018 7:38 pm COMPARISON: None. HISTORY: ORDERING SYSTEM PROVIDED HISTORY: R/O PNA TECHNOLOGIST PROVIDED HISTORY: R/O PNA FINDINGS: Mild congestion, likely magnified by technique. No airspace consolidation, effusion, or pneumothorax. Borderline cardiomegaly. IMPRESSION: Cardiomegaly and congestion magnified by technique. No airspace consolidation. [place] EXAMINATION: ONE XRA Y VIEW OF THE CHEST 11/28/2018 7:38 pm COMPARISON: None. HISTORY: ORDERING SYSTEM PROVIDED HISTORY: R/O PNA TECHNOLOGIST PROVIDED HISTORY: R/O PNA FINDINGS: Mild congestion, likely magnified by technique. No airspace consolidation, effusion, or pneumothorax. Borderline cardiomegaly. [facility] [place] CMV Ab,IgGon 11-27-2018 CMV Ab,IgG 0.1 Normal <0.9 [facility] Comment on above: Result Comment: Reference [...] FA2, MATIAS, TOXOG, HSVM12, CMVG, FA5 #### [place] [id number] [place], [place] [id number] [employer] Specialist: Geo Mar MD #### CBC, FIB #### [address] [place], [place] [phone] [employer] Specialist: Mario Anne MD #### APROTS, APARVP, APROTC, ARUBGM #### [facility] [address] [place] [address] [employer] Applications Specialist: Fernando Valencia MD #### LUPPRO #### [address] [id number] [employer] Specialist: Geo Mar MD [address] [place] [address] [employer] Specialist: Mario Anne MD CMV Ab,IgMon 11-27-2018 CMV Ab,IgM 0.4 Normal <0.9 [facility] [facility] Comment on above: Result Comment: Reference [...] findings. Performed By: #### C BC #### [address] [place] [address] Network Applications Specialist: Mario Anne MD CBCon 11-25-2018 Erythrocyte distribution width (RBC) [Ratio] 13.2 % Normal 11.8-14.4 [facility] Comment on above: Performed By: #### T OXOM, HSVG12, CMVM, FA2, MATIAS, TOXOG, HSVM12, CMVG, FA5 #### [facility] [address] [place] [address] Network Applications Specialist: Geo Mar MD #### CBC, FIB #### [address] [place] [address] Network Applications Specialist: Mario Anne MD #### APROTS, APARVP, APROTC, ARUBGM #### [facility] [address] [place] [address] Network Applications Specialist: Fernando Valencia MD #### LUPPRO #### [address] [address] Network Applications Specialist: Geo Mar MD [address] [place] [phone] Network Applications Specialist: aMrio Anne MD Hematocrit (Bld) [Volume fraction] 30.4 % Low 36.3-47.1 [facility] Comment on above: Performed By: #### T OXOM, HSVG12, CMVM, FA2, MATIAS, TOXOG, HSVM12, CMVG, FA5 #### [address] [address] Network Applications Specialist: Geo Mar MD #### CBC, FIB #### [address] [place] [phone] Network Applications Specialist: Mario Anne MD #### APROTS, APARVP, APROTC, ARUBGM #### [facility] [address] [place] [address] Network Applications Specialist: Fernando Valencia MD #### LUPPRO #### [address] [address] Network Applications Specialist: Geo Mar MD [address] [place] [phone] Network Applications Specialist: Mario Anne MD Hemoglobin (Bld) [Mass/Vol] 9.7 g/dL Low 11.9-15.1 [facility] Comment on above: Performed By: #### T OXOM, HSVG12, CMVM, FA2, MATIAS, TOXOG, HSVM12, CMVG, FA5 #### [address] [address] Network Applications Specialist: Geo Mar MD #### CBC, FIB #### [address] [place], [place] [phone] Network Applications Specialist: Mario Anne MD #### APROTS, APARVP, APROTC, ARUBGM #### [facility] [address] [place] [address] Network Applications Specialist: Fernando Valencia MD #### LUPPRO #### [address] [address] Network Applications Specialist: Geo Mar MD [address] [place] [phone] Network Applications Specialist: Mario Anne MD MCH (RBC) [Entitic mass] 28.2 pg Normal 25.2-33.5 [facility] Comment on above: Performed By: #### T OXOM, HSVG12, CMVM, FA2, MATIAS, TOXOG, HSVM12, CMVG, FA5 #### [address] [address] Network Applications Specialist: Geo Mar MD #### CBC, FIB #### [address] [place], [place] [phone] Network Applications Specialist: Mario Anne MD #### APROTS, APARVP, APROTC, ARUBGM #### [facility] [address] [place], [place] [id number] Network Applications Specialist: Fernando Valencia MD #### LUPPRO #### [address] [address] Network Applications Specialist: Geo Mar MD [address] [place], [place] [phone] Network Applications Specialist: Mario Anne MD MCHC (RBC) [Mass/Vol] 31.9 g/dL Normal 28.4-34.8 [facility] Comment on above: Performed By: #### T OXOM, HSVG12, CMVM, FA2, MATIAS, TOXOG, HSVM12, CMVG, FA5 #### [address] [address] Network Applications Specialist: Geo Mar MD #### CBC, FIB #### [address] [place] [phone] Network Applications Specialist: Mario Anne MD #### APROTS, APARVP, APROTC, ARUBGM #### [facility] [address] [place] [address] Network Applications Specialist: Fernando Valencia MD #### LUPPRO #### [address] [phone] Network Applications Specialist: Geo Mar MD [address] [place] [phone] Network Applications Specialist: Mario Anne MD MCV (RBC) [Entitic vol] 88.4 fL Normal 82.6-102.9 [facility] Comment on above: Performed By: #### T OXOM, HSVG12, CMVM, FA2, MATIAS, TOXOG, HSVM12, CMVG, FA5 #### [address] [address] Network Applications Specialist: Geo Mar MD #### CBC, FIB #### [address] [place] [address] Network Applications Specialist: Mario Anne MD #### APROTS, APARVP, APROTC, ARUBGM #### [facility] [address] [place] [address] Network Applications Specialist: Fernando Valencia MD #### LUPPRO #### [address] [address] Network Applications Specialist: Geo Mar MD [address] [place] [phone] Network Applications Specialist: Mario Anne MD NRBC Automated 0.0 per 100 WBC Normal 0.0 [facility] Comment on above: Performed By: #### T OXOM, HSVG12, CMVM, FA2, MATIAS, TOXOG, HSVM12, CMVG, FA5 #### [address] [address] Network Applications Specialist: Geo Mar MD #### CBC, FIB #### [address] [place] [phone] Network Applications Specialist: Mario Anne MD #### APROTS, APARVP, APROTC, ARUBGM #### [facility] [address] [place] [address] Network Applications Specialist: Fernando Valencia MD #### LUPPRO #### [address] [address] Network Applications Specialist: Geo Mar MD [address] [place] [phone] Network Applications Specialist: Mario Anne MD Platelet mean volume (Bld) [Entitic vol] 10.4 fL Normal 8.1-13.5 [facility] Comment on above: Performed By: #### T OXOM, HSVG12, CMVM, FA2, MATIAS, TOXOG, HSVM12, CMVG, FA5 #### [address] [address] Network Applications Specialist: Geo Mar MD #### CBC, FIB #### [address] [place] [phone] Network Applications Specialist: Mario Anne MD #### APROTS, APARVP, APROTC, ARUBGM #### [facility] [address] [place], [place] [phone] Network Applications Specialist: Fernando Valencia MD #### LUPPRO #### [address] [address] Network Applications Specialist: Geo Mar MD [address] [place] [phone] Network Applications Specialist: Mario Anne MD Platelets (Bld) [#/Vol] 247 10*3/uL Normal 138-453 [facility] Comment on above: Performed By: #### T OXOM, HSVG12, CMVM, FA2, MATIAS, TOXOG, HSVM12, CMVG, FA5 #### [address] [address] Network Applications Specialist: Geo Mar MD #### CBC, FIB #### [address] [place] [address] Network Applications Specialist: Mario Anne MD #### APROTS, APARVP, APROTC, ARUBGM #### [facility] [address] [place], [place] [id number] Network Applications Specialist: Fernando Valencia MD #### LUPPRO #### [address] [address] Network Applications Specialist: Geo Mar MD [address] [place] [phone] Network Applications Specialist: Mario Anne MD RBC (Bld) [#/Vol] 3.44 10*6/uL Low 3.95-5.11 [facility] Comment on above: Performed By: #### T OXOM, HSVG12, CMVM, FA2, MATIAS, TOXOG, HSVM12, CMVG, FA5 #### [address] [address] Network Applications Specialist: Geo Mar MD #### CBC, FIB #### [address] [place] [address] Network Applications Specialist: Mario Anne MD #### APROTS, APARVP, APROTC, ARUBGM #### [facility] [address] [place] [address] Network Applications Specialist: Fernanod Valencia MD #### LUPPRO #### [address] [address] Network Applications Specialist: Geo Mar MD [address] [place] [phone] Network Applications Specialist: Mario Anne MD WBC (Bld) [#/Vol] 13.1 10*3/uL High 3.5-11.3 [facility] Comment on above: Performed By: #### T OXOM, HSVG12, CMVM, FA2, MATIAS, TOXOG, HSVM12, CMVG, FA5 #### [address] [address] Network Applications Specialist: Geo Mar MD #### CBC, FIB #### [address] [place], [place] [phone] Network Applications Specialist: Mario Anne MD #### APROTS, APARVP, APROTC, ARUBGM #### [facility] [address] [place] [address] Network Applications Specialist: Fernando Valencia MD #### LUPPRO #### [address] [address] Network Applications Specialist: Geo Mar MD [address] [place], [place] [phone] Network Applications Specialist: Mario Anne MD Drug Scr, Abuse, Uron 2018 Amphetamine(s),Ur Negative Normal NEG [facility] Comment on above: Performed By: #### D AU ####[address] , [place] [phone] Lab Director: Mario Anne MD Barbiturate(s),Ur Negative [facility] Comment on above: Performed By: #### D AU ####[address] , [place] [phone] Lab Director: Mario Anne MD Base excess Calc (Bld) [Moles/Vol] Negative Normal NEG [facility] Comment on above: Performed By: #### D AU ####[address] , [place] [phone] Lab Director: Mario Anne MD Benzodiazepine(s) Negative [facility] Comment on above: Performed By: #### D AU ####[address] [place] [address] Lab Director: Mario Anne MD Buprenorphrine, Ur Negative Normal [facility] Comment on above: Performed By: #### D AU ####[address] [place] [address] Lab Director: Mario Anne MD Cannabinoid(s),Ur Negative [facility] Comment on above: Performed By: #### D AU ####[address] [place] [address] Lab Director: Mario Anne MD Methadone Ql (U) Negative Normal [facility] Comment on above: Performed By: #### D AU ####[address] , [place] 932[address]83 Lab Director: Mario Anne MD Methamphetamine, Ur Negative Normal [facility] Comment on above: Performed By: #### D AU ####[address] [address] [place] [address] Lab Director: Mario Anne MD Opiate(s), Ur Negative Normal NEG [facility] Comment on above: Performed By: #### D AU ####[facility] [place] [address] Lab Director: Mario Anne MD Oxycodone, Urine Negative Normal NEG [facility] Comment on above: Performed By: #### D AU ####[facility] [place] [address] Lab Director: Mario Anne MD Phencyclidine, Ur Negative Normal NEG [facility] Comment on above: Performed By: #### D AU ####[address] [place] [address] Lab Director: Mario Anne MD Propoxyphene,Urine Negative Normal NEG [facility] Comment on above: Performed By: #### D AU ####[address] [place] [address] Lab Director: Mario Anne MD Tricyclic antidepressants Screen Ql (U) Negative Normal NEG [facility] Comment on above: Result Comment: Drug screen results are to be used for medical purposes only. All positive results are unconfirmed. Testing for employment or legal uses should be sent to a reference laboratory for confirmation. Performed By: #### D AU ####[address] [place] [address] Lab Director: Mario Anne MD Interpretive Info NOT REPORTED Normal [facility] Comment on above: Performed By: #### D AU ####[address] [place] [address] Lab Director: Mario Anne MD MDMA, Urine NOT REPORTED Normal NEG [facility] Comment on above: Performed By: #### D AU ####[address] [place] [address] Lab Director: Mario Anne MD Fibrinogenon 11-25-2018 Fibrinogen 465 mg/dL High 185-451 [facility] Comment on above: Performed By: #### T OXOM, HSVG12, CMVM, FA2, MATIAS, TOXOG, HSVM12, CMVG, FA5 #### [facility] [address] [place], [place] [phone] Network Applications Specialist: Geo Mar MD #### CBC, FIB #### [address] [place] [address] Network Applications Specialist: Mario Anne MD #### APROTS, APARVP, APROTC, ARUBGM #### [facility] [address] [place] [address] Network Applications Specialist: Fernando Valencia MD #### LUPPRO #### [address] [phone] Network Applications Specialist: Geo Mar MD [address] [place] [address] Network Applications Specialist: Mario Anne MD Hgb/Hcton 11-25-2018 Hematocrit (Bld) [Volume fraction] 30.4 % Low 36.3-47.1 [facility] Comment on above: Performed By: #### H H ####[address] , [facility] Lab Director: Mario Anne MD Hemoglobin (Bld) [Mass/Vol] 9.8 g/dL Low 11.9-15.1 [facility] Comment on above: Performed By: #### H H ####[address] [place] [address] Lab Director: Mario Anne MD Lupus Anticoagulanton 2018 aPTT Coag (d) [Time] 27.1 s Normal 23.2-34.4 [facility] Comment on above: Performed By: #### C BC #### [facility] [address] [place] [address] Network Applications Specialist: Mario Anne MD INR Coag (PPP) [Relative time] 0.9 {INR} Normal 0.9-1.2 [facility] Comment on above: Performed By: #### C BC #### [facility] [address] [place] [address] Network Applications Specialist: Mario Anne MD PT Coag (PPP) [Time] 9.7 s Normal 9.7-12.2 [facility] Comment on above: Performed By: #### C BC #### [address] [place] [address] Network Applications Specialist: Mario Anne MD Lupus Anticoagulant NOT REPORTED Normal [facility] Comment on above: Performed By: #### C BC #### [address] [place] [address] Network Applications Specialist: Mario Anne MD Rubella Ab, IgGon 11-25-2018 Rubella Ab, IgG 27.5 IU/mL Normal [facility] Comment on above: Result Comment: REFERENCE RANGE: <5.0 NON-REACTIVE (non-immune) 5.0 TO 9.9 EQUIVOCAL >=10.0 REACTIVE (immune) Performed By: #### T OXOM, HSVG12, CMVM, FA2, MATIAS, TOXOG, HSVM12, CMVG, FA5 #### [address] [address] Network Applications Specialist: Geo Mar MD #### CBC, FIB #### [address] [place] [address] Network Applications Specialist: Mario Anne MD #### APROTS, APARVP, APROTC, ARUBGM #### [facility] [address] [place] [address] Network Applications Specialist: Fernando Valencia MD #### LUPPRO #### [facility] [address] [place] [phone] Network Applications Specialist: Geo Mar MD [facility] [address] [place] [address] Network Applications Specialist: Mario Anne MD Surgical Pathologyon 019 Surgical Pathology (NOTE) [id number] [facility] CONSULTING PATHOLOGISTS [facility] [address] [place] [phone] SURGICAL PATHOLOGY CONSULTATION Patient Name: DEION CUMMINGS [facility] Rec: [id number] Path Number: [id number] Collected: 11/25/2018 Received: 11/29/2018 Reported: 11/30/2018 16:37 [...] villous capillaries: Rare Other: Few microcalcifications Normal [facility] Comment on above: Performed By: #### T OXOM, HSVG12, CMVM, FA2, MATIAS, TOXOG, HSVM12, CMVG, FA5 #### [address] [place] [address] Network Applications Specialist: Geo Mar MD #### CBC, FIB #### [facility] [address] [place] [address] [place], [place] [phone] Network Applications Specialist: Mario Anne MD #### APROTS, APARVP, APROTC, ARUBGM #### [facility] [address] [place], [place] [phone] Network Applications Specialist: Fernando Valencia MD #### LUPPRO #### [address] [address] Network Applications Specialist: Geo Mar MD [address] [place] [address] Network Applications Specialist: Mario Anne MD Thyroid Stim. Horm.on 2018 TSH Qn 1.78 m[IU]/L Normal 0.30-5.00 [facility] Comment on above: Performed By: #### T SH ####[address] [place] [phone] Lab Director: Mario Anne MD Toxoplasma Ab,IgGon 11-26-19 19 Toxoplasma Ab,IgG <0.5 Normal [facility] Comment on above: Result Comment: REFERENCE [...] FA2, MATIAS, TOXOG, HSVM12, CMVG, FA5 #### [address] [address] Network Applications Specialist: Geo Mar MD #### CBC, FIB #### [address] [place], [place] 0706383 Network Applications Specialist: Mario Anne MD #### APROTS, APARVP, APROTC, ARUBGM #### [facility] [address] [place] [address] Network Applications Specialist: Fernando Valencia MD #### LUPPRO #### [address] [address] Network Applications Specialist: Geo Mar MD [address] [place] [phone] Network Applications Specialist: Mario Anne MD Toxoplasma Ab,IgMon 11-26-19 19 Toxoplasma Ab,IgM 0.55 Index Normal [facility] Comment on above: Result Comment: REFERENCE RANGE: <0.90 NON-REACTIVE 0.90 TO 1.00 INDETERMINANT >=1.10 REACTIVE Performed By: #### T OXOM, HSVG12, CMVM, FA2, MATIAS, TOXOG, HSVM12, CMVG, FA5 #### [address] [address] Network Applications Specialist: Geo Mar MD #### CBC, FIB #### [address] [place] [phone] Network Applications Specialist: Mario Anne MD #### APROTS, APARVP, APROTC, ARUBGM #### [facility] [address] [place] [address] Network Applications Specialist: Fernando Valencia MD #### LUPPRO #### [address] [phone] Network Applications Specialist: Geo Mar MD [address] [place], [place] [phone] Network Applications Specialist: Mario Anne MD Type + Screenon 11-25-2018 Type + Screen Sample Expiration 11/28/2018 Arm Band Number [id number] ABO/Rh(D) O POSITIVE Antibody Screen NEGATIVE Normal [facility] Comment on above: Performed By: #### T YS ####[address] [phone] Lab Director: Mario Anne MD CBCon 11-24-2018 Erythrocyte distribution width (RBC) [Ratio] 13.2 % Normal 11.8-14.4 [facility] Comment on above: Performed By: #### C BC #### [address] [place] [phone] Network Applications Specialist: Mario Anne MD Hematocrit (Bld) [Volume fraction] 31.6 % Low 36.3-47.1 [facility] Comment on above: Performed By: #### C BC #### [address] [place], [place] 3868983 Network Applications Specialist: Mario Anne MD Hemoglobin (Bld) [Mass/Vol] 10.1 g/dL Low 11.9-15.1 [facility] Comment on above: Performed By: #### C BC #### [address] [place] [phone] Network Applications Specialist: Mario Anne MD MCH (RBC) [Entitic mass] 28.1 pg Normal 25.2-33.5 [facility] Comment on above: Performed By: #### C BC #### [address] [place] [phone] Network Applications Specialist: Mario Anne MD MCHC (RBC) [Mass/Vol] 32.0 g/dL Normal 28.4-34.8 [facility] Comment on above: Performed By: #### C BC #### [address] [place] [phone] Network Applications Specialist: Mario Anne MD MCV (RBC) [Entitic vol] 88.0 fL Normal 82.6-102.9 [facility] Comment on above: Performed By: #### C BC #### [facility] [address] [place] [address] [place] [phone] Network Applications Specialist: Mario Anne MD NRBC Automated 0.0 per 100 WBC Normal 0.0 [facility] Comment on above: Performed By: #### C BC #### [facility] [address] [place] [address] [place] [phone] Network Applications Specialist: Mario Anne MD Platelet mean volume (Bld) [Entitic vol] 10.1 fL Normal 8.1-13.5 [facility] Comment on above: Performed By: #### C BC #### [facility] [address] [place] [address] [place], [place] [phone] Network Applications Specialist: Mario Anne MD Platelets (Bld) [#/Vol] 246 10*3/uL Normal 138-453 [facility] Comment on above: Performed By: #### C BC #### [address] [place], [place] [phone] Network Applications Specialist: Mario Anne MD RBC (Bld) [#/Vol] 3.59 10*6/uL Low 3.95-5.11 [facility] Comment on above: Performed By: #### C BC #### [facility] [address] [place] [address] [place], [place] 2894483 Network Applications Specialist: Mario Anne MD WBC (Bld) [#/Vol] 10.7 10*3/uL Normal 3.5-11.3 [facility] Comment on above: Performed By: #### C BC #### [facility] [address] [place] [address] [place], [place] [phone] Network Applications Specialist: Mario Anne MD Type + Screenon 11-24-2018 Type + Screen Sample Expiration 11/27/2018 Arm Band Number [id number] ABO/Rh(D) O POSITIVE Antibody Screen NEGATIVE Normal [facility] Comment on above: Performed By: #### T YS #### [facility] [address] [place] [address] Network Applications Specialist: Mario Anne MD US OB 14 PLUS [...] Luis Adam MD 11/24/18 Final result Normal [facility] US OB TRANSVAGINALon 019 US OB [...] Yolk Sac: Not visualized Pole: Single pole [address] Rump Length: 7.11 cm Heart Rate: 145 [...] Grzegorz Vicente MD 09/30/18 Final result Normal [facility] ABO/Rhon 09-17-2018 ABO and Rh group Nom (Bld) O Positive [facility] HCG (QUANTITATIVE)on 019 Beta HCG ( test) Ql (U) Males and non females: <5 mIU/mL Females during : 3-4 weeks 9-130 mIU/mL 4-5 weeks 75-2600 mIU/mL 5-6 weeks 850-20,800 mIU/mL 6-7 weeks 4000-100,200 mIU/mL 7-12 weeks 11,500-289,000 mIU/mL 12-16 weeks 18,300-137,000 mIU/mL 16-29 weeks 1,400-53,000 mIU/mL 29-41 weeks 940-60,000 mIU/[place] [facility] [place] [address] m[IU]/mL High [facility] Interpretation and review of laboratory results Abnormal [facility] Vital Signs Date Time Vital Sign Value Performing Clinician Facility 08-15-2024 10:110400 Body height 177.8 cm Pricilla Briseno MD Work Phone: [facility] 08-15-2024 10:11-0400 Body mass index (BMI) [Ratio] 68.16 kg/m2 Pricilla Briseno MD Work Phone: [facility] 08-15-2024 10:110400 Body weight 215.46 kg Pricilla Briseno MD Work Phone: [facility] 02-04-2024 14:24-0500 Body height 177.8 cm [facility] 02-04-2024 14:24-0500 Body mass index (BMI) [Ratio] 67 kg/m2 [facility] 02-04-2024 14:24-0500 Body temperature 99.3 [degF] [facility] 02-04-2024 14:24-0500 Body weight 211.94 kg [facility] 02-04-2024 14:24-0500 Diastolic blood pressure 83 mm[Hg] [facility] 02-04-2024 14:24-0500 Heart rate 106 /min [facility] 02-04-2024 14:24-0500 Respiratory rate 20 /min [facility] 02-04-2024 14:24-0500 SaO2% (BldA) [Mass fraction] 98 % [facility] 02-04-2024 14:24-0500 Systolic blood pressure 135 mm[Hg] [facility] 11-30-2018 08:46-0400 Body Temperature 97.9 [degF] [facility] [place] 11-30-2018 08:46-0400 BP Diastolic 85 mm[Hg] [place], [place] 11-30-2018 08:46-0400 BP Systolic 133 mm[Hg] [facility] , [place] 11-30-2018 08:46-0400 Pulse (Heart Rate) 80 /min [facility] [place] 11-30-2018 08:46-0400 Pulse Oximetry 99 % [place], [place] 11-30-2018 08:46-0400 Respiratory Rate 18 /min [facility] [place] 11-30-2018 04:30-0400 BMI (Body Mass Index) 54.64 kg/m2 [place], [place] 11-30-2018 04:30-0400 Body weight 167.83 kg [place] 11-29-2018 08:35-[address] [facility] [place] 11-28-2018 21:40-0400 Respiratory rate NOT REPORTED [facility] Comment on above: Performed By: #### VBG ####[facility] [place] , [place] [id number] [facility] Director: Mario Anne MD 11-28-2018 19:51-0400 Respiratory rate NOT REPORTED [place], [place] 09-17-2018 00:04-0400 BMI (Body Mass Index) 54.93 kg/m2 [facility] 09-17-2018 00:04-0400 Body Temperature 98.29 [degF] [facility] 09-17-2018 00:04-0400 Body weight 168.74 kg [facility] 09-17-2018 00:04-0400 BP Diastolic 91 mm[Hg] [facility] 09-17-2018 00:04-0400 BP Systolic 170 mm[Hg] [facility] 09-17-2018 00:04-0400 Height 175.3 cm [facility] 09-17-2018 00:04-0400 Pulse (Heart Rate) 95 /min [facility] 09-17-2018 00:04-0400 Pulse Oximetry 98 % [facility] 09-17-2018 00:04-0400 Respiratory Rate 16 /min [facility] Encounters Encounter Date Encounter Type Care Provider Facility Start: 08-15-2024 End: 08-15-2024 Roly Briseno MD Work Phone: [facility] Start: 08-15-2024 End: 08-15-2024 Windyo rina Briseno MD Work Phone: [facility] Start: 08-15-2024 End: 08-15-2024 Office outpatient new 45 minutes Pricilla Briseno MD Work Phone: [facility] Comment on above: Asthma, allergic, mi ld intermittent, uncomplicated (CMS/HCC) (Primary Dx); Chronic rhinitis Start: 08-15-2024 End: 08-15-2024 ambulatory PRICILLA ALVARESRAUL Not Available Start: 06-07-2024 End: 06-07-2024 Emergency department patient visit MIKE OSULLIVAN [facility] Start: 05-30-2024 End: 05-30-2024 ambulatory MIKE OSULLIVAN Not Available Start: 02-04-2024 End: 02-04-2024 ambulatory [facility] Work Phone: Start: 02-04-2024 End: 02-04-2024 Patient encounter procedure [facility] [facility] Work Phone: Start: 08-08-2023 End: 08-09-2023 ambulatory Wolf Mendosa MD Facility:[facility] Start: 07-25-2023 End: 07-26-2023 ambulatory Wolf Mendosa MD Facility:[facility] Start: 07-11-2023 End: 07-12-2023 ambulatory Wolf Mendosa MD Facility:[facility] Start: 06-23-2022 ambulatory MIKE OSULLIVAN Facility:H 1 Start: 06-16-2022 End: 07-15-2022 ambulatory CORNELL SPRING Facility:H1 Start: 03-18-2022 End: 03-18-2022 ambulatory MIKE OSULLIVAN Facility:H1 Start: 12-18-2021 End: 12-18-2021 ambulatory MIKE HOY Facility:H1 Start: 12-04-2021 End: 12-05-2021 ambulatory MIKE HOY Facility:H1 Start: 11-25-2021 End: 11-26-2021 ambulatory MIKE RAVIN Facility:H1 Start: 09-19-2021 End: 09-19-[address] ÁNGEL BABIN Facility:H1 Start: 07-30-2021 End: 07-30-2021 ambulatory MIKE HOY Facility:H1 Start: 04-29-2021 End: 04-30[facility] Start: 04-29-2021 End: 04-29-2021 Subsequent hospital visit by physician Mike Osullivan MD Work Phone: [facility] Comment on above: Abnormal menstrual p eriods Start: 04-08-2020 End: 04-08-2020 Subsequent hospital visit by physician [facility] Start: 11-28-2018 End: 11-30-2018 Evaluation and management of inpatient [facility] Start: 11-28-2018 End: 11-30-2018 Evaluation and management of inpatient Art Ugarte Work Phone: [facility] Comment on above: Sepsis, due to unspe cified organism (HCC) (Primary Dx) Start: 11-24-2018 End: 11-25-2018 Evaluation and management of inpatient [facility] Start: 09-30-2018 End: 09-30-2018 Patient encounter procedure [facility] Start: 09-17-2018 End: 09-17-2018 Emergency department patient visit [facility] Start: 09-17-2018 End: 09-17-2018 Emergency department patient visit [facility] Work Phone: [facility] Emergency Department Comment on above: Vaginal bleeding in (Primary Dx) Procedures Date Procedure Procedure Detail Performing Clinician Start: 04-29-2021 Gonadotropin chorionic quantitative Vadim Joyce PERSONNEL ASSOCIATE - STEMMING MACHINE OPERATOR Work Phone: Start: 04-08-[address] [facility] Work Phone: Start: 04-08-2020 Assay of thyroid stimulating hormone tsh [facility] Work Phone: Start: 04-08-[address]ine [address] [facility] Work Phone: Start: 04-08-2020 Assay of triiodothyronine t3 total tt3 [facility] Work Phone: Start: 04-08-2020 Blood count complete auto&auto difrntl wbc Nunnelly Harvey Ravin Work Phone: Start: 04-08-2020 Comprehensive metabolic panel [...] Start: 11-30-2018 Drug screen quantitative vancomycin Brenton Malagoncindy Horton Work Phone: Start: 11-29-2018 Dup-scan xtr veins complete bilateral study MIKE OSULLIVAN Start: 11-29-2018 Culture bacterial blood aerobic w/id isolates MIKE OSULLIVAN Start: 11-29-2018 INITIATE OXYGEN THERAPY PROTOCOL MIKE OSULLIVAN Start: 11-29-2018 AMBULATE IN [place] MIKE OSULLIVAN Start: 11-29-2018 Dup-scan xtr veins complete bilateral study Marcianobrenda Griffin Work Phone: Start: 11-29-2018 IP CONSULT TO SPIRITUAL SERVICES MIKE OSULLIVAN Start: 11-29-2018 Assay of magnesium MIKE OSULLIVAN Start: 11-29-2018 Blood count complete auto&auto difrntl wbc MIKE OSULLIVAN Start: 11-29-2018 Blood count complete automated MIKE H OY Start: 11-29-2018 Assay of magnesium Brenton Malagoncindy Horton Work Phone: Start: 11-29-2018 Blood count complete auto&auto difrntl wbc Brenton Marco A Horton Work Phone: Start: 11-29-2018 Blood count complete automated Brenton Manas in [place] Work Phone: Start: 11-29-2018 DIET GENERAL MIKE HOY Start: 11-29-2018 FULL CODE MIKE HOY Start: 11-29-2018 INITIATE OXYGEN THERAPY PROTOCOL MIKE HOY Start: 11-29-2018 IP CONSULT TO CASE MANAGEMENT MIKE HO Y Start: 11-29-2018 IP CONSULT TO INFORMATION SERVICES VICE PRESIDENT MIKE HOY Start: 11-29-2018 NOTIFY PHYSICIAN (SPECIFY) [...] MIKE HOY Start: 11-28-2018 Urinalysis microscopic only [facility] Work Phone: Start: 11-28-2018 Urnls dip stick/tablet rgnt auto w/o microscopy [facility] Work Phone: Start: 11-28-2018 Assay of lactate MIKE OSULLIVAN Start: 11-28-2018 Culture bacterial blood aerobic w/id isolates MIKE HOY Start: 11-28-2018 Radiologic exam chest single view [facility] Work Phone: Start: 11-28-2018 Ct abdomen & pelvis w/o contrast material [facility] Work Phone: Start: 11-28-2018 Ecg routine ecg w/least 12 lds w/i&r [facility] Work Phone: Start: 11-28-2018 Assay of lipase [facility] Work Phone: Start: 11-28-2018 Blood count complete auto&auto difrntl wbc [facility] Work Phone: Start: 11-28-2018 Prothrombin time [facility] Work Phone: Start: 11-28-2018 Thromboplastin time partial plasma/whole blood [facility] Work Phone: Start: 11-28-2018 Blood gases any combination ph pco2 po2 co2 hco3 [facility] Work Phone: Start: 11-28-2018 Culture bacterial blood aerobic w/id isolates [facility] Work Phone: Start: 11-28-2018 LACTATE, SEPSIS [facility] Work Phone: Start: 11-25-2018 HEMOGLOBIN AND HEMATOCRIT, BLOOD MIKE OSULLIVAN Start: 11-25-2018 Drug screen class list a MIKE OSULLIVAN Start: 11-25-2018 DISCHARGE PATIENT MIKE HOEnid Start: 11-25-2018 INITIATE OXYGEN THERAPY PROTOCOL MIKE OSULLIVAN Start: 11-25-2018 Antibody cytomegalovirus cmv MIKE HOY Start: 11-25-2018 Antibody cytomegalovirus cmv igm MIKE HOY Start: 11-25-2018 Antibody herpes smplx non-specific type test MIKE HOY Start: 11-25-2018 Antibody parvovirus MIKE HOY Start: 11-25-2018 Antibody rubella MIKE HOY Start: 11-25-2018 Antibody toxoplasma MIKE HOY Start: 11-25-2018 Antibody toxoplasma igm MIKE HOY Start: 11-25-2018 Assay of thyroid stimulating hormone tsh IMKE HOY Start: 11-25-2018 Blood count complete automated [...] and Rh group [Type] in Blood Jennifer Rylan Vivar Work Phone: Start: 09-17-2018 Choriogonadotropin [Units/volume] [...] Treatment Date Care Activity Detail Author Start: 12-24-2026 Screening for malign ant neoplasm of cervix [facility] Start: 11-19-2024 Influenza vaccination Influenz a Vaccine (Season Ended) [facility] Start: 10-17-2024 End: 10-17-2024 Patient encounter procedure 10/17/2024 3:20 PM EDT Office Visit [facility] [address] [place] [id number] Pricilla Briseno MD [address] [place] [address] [facility] Start: 08-15-2024 End: 08-15-2024 Patient encounter procedure 08/15/2024 10:00 AM EDT Office Visit [facility] [address] [place] [id number] Pricilla Briseno MD [address] [place] [address] Arrived [facility] Comment on above: Arrived Start: 11-19-2020 Influenza vaccination Flu vaccine (# 1) [facility] Start: 11-20-2019 Influenza vaccination Flu vaccine (# 1) [place] Start: 11-19-2018 Influenza vaccination Flu vaccine (# 1) [place] Start: 2014 Cervical cancer screen Cervical canc er screen [place], [place] Start: 2014 Screening for malign ant neoplasm of cervix [facility] Start: 2012 DTaP/Tdap/Td vaccine (1 - Tdap) DTaP/Tdap/Td vaccine (1 - Tdap) [facility] Start: 2008 HIV screen HIV screen [place], [place] Start: 2008 [facility] Start: 2008 HPV vaccine (1 - Fem killian 3-dose series) HPV vaccine (1 - Female 3-dose series) [place] Start: 2006 Varicella Vaccine (1 of 2 - 13+ 2-dose series) Varicella Vaccine (1 of 2 - 13+ 2-dose series) [place] Start: 2005 Depression Screen Depression Screen [facility] Start: 1999 Pneumococcal 0-64 ye ars Vaccine (1 of 1 - PPSV23) Pneumococcal 0-64 years Vaccine (1 of 1 - PPSV23) [place] Start: 1999 Pneumococcal 0-64 ye ars Vaccine (1 of 2 - PPSV23) Pneumococcal 0-64 years Vaccine (1 of 2 - PPSV23) [facility] Start: 1998 COVID-19 Vaccine (1) COVID-19 Vaccin e (1) [facility] Start: 1994 Varicella vaccine (1 of 2 - 2-dose childhood series) Varicella vaccine (1 of 2 - 2-dose childhood series) [facility] Start: 1993 Hepatitis C screening Hepatitis C sc reen [facility] Bacteria identified Cx Nom (U) Urine Culture Microbiology STAT 11/28/2018 9:39 PM EDT [place] CBC CBC Lab Routine Daily until discontinued starting 11/30/2018, 1 completed [place] Comment on above: Daily until disconti nued starting 11/30/2018, 1 completed Comprehensive Metabo lic Panel w/ Reflex to MG Comprehensive Metabolic Panel w/ Reflex to MG Lab Routine Daily until discontinued starting 11/30/2018, 1 completed [place] Comment on above: Daily until disconti nued starting 11/30/2018, 1 completed Culture blood #1 Culture blood # 1 Microbiology STAT 11/28/2018 7:30 PM EDT [place] Culture Blood #2 Culture Blood # 2 Microbiology Routine 11/29/2018 8:20 AM EDT [place] EKG 12 lead EKG 12 lead ECG STAT 11/28/2018 7:50 PM EDT [place] Initiate Oxygen Ther apy Protocol Initiate Oxygen Therapy Protocol Respiratory Care Routine Daily until discontinued starting 11/29/2018 [place] Comment on above: Daily until disconti nued starting 11/29/2018 End: 12-02-2018 Vancomycin, trough Vancomycin, trough Lab Timed One Time for 1 Occurrences starting 12/02/2018 until 12/02/2018 [place] Comment on above: One Time for 1 Occur rences starting 12/02/2018 until 12/02/2018 Immunizations Immunization Date Immunization Notes Care Provider Fa [facility] 01-12-2019 influenza virus vacc ine, unspecified formulation Pricilla Briseno MD Work Phone: [facility] Payers Date Payer Category Payer Private Health Insurance 2018 Unknown [id number] 2018 Unknown xxxxxxxxxxxx [id number] 2014 Unknown [id number] 1993 Unknown [id number] 2.16.8 [id number] 1993 Unknown [id number] 2.16.8 [id number] 1993 Unknown [id number] 2.16.8 40.1.691092.3.579.2.173 1993 Unknown [id number] 2.16.8 40.1.746638.3.579.2.175 1993 Unknown [id number] 2.16.84 0.1.411389.3.579.2.593 1993 Unknown [id number] 2.16.84 0.1.245590.3.579.2.593 1993 Unknown [id number] 2.16.84 0.1.814759.3.579.2.593 1993 Unknown [id number] 2.16.84 0.1.501525.3.579.2.593 1993 Unknown [id number] 2.16.84 0.1.067679.3.579.2.593 1993 Unknown [id number] 2.16.84 0.1.812399.3.579.2.593 1993 Unknown [id number] 2.16.84 0.1.404456.3.579.2.593 1993 Unknown [id number] 2.16.84 0.1.755864.3.579.2.593 1993 Unknown [id number] 2.16. 840.1.217313.3.579.2.196 1993 Unknown [id number] 2.16. 840.1.685594.3.579.2.196 1993 Unknown [id number] 2.16. 840.1.764623.3.579.2.196 1993 Unknown [id number] 2.16. 840.1.331288.3.579.2.1286 1993 Unknown [id number] 2.16.84 0.1.172427.3.579.2.1259 1993 Unknown [id number] 2.16.84 0.1.934794.3.579.2.1259 1993 Unknown [id number] 2.16.84 0.1.559081.3.579.2.1259 1961 Medicaid [id number] 1961 Self-pay [id number] 1959 Unknown [id number] Social History Date Type Detail Facility Start: 11-25-2018 End: 11-28-2018 Tobacco smoking status [facility] Current every day smoker [facility] Start: 11-28-2018 End: 08-15-2024 Alcohol intake Not Currently [facility] Start: 1993 Sex Assigned At Not on file [facility] Start: 11-25-2018 End: 11-28-2018 Tobacco use and exposure Never used [facility] Start: 11-28-2018 Alcohol intake Ex-drinker (finding) [facility] Start: 09-17-2018 End: 08-15-2024 Cigarettes smoked current (pack per day) - Reported [facility] Start: 09-17-2018 History SDOH Alcohol Frequency 1 [facility] Start: 02-04-2024 Tobacco smoking stat [facility] Ex-smoker (finding) [facility] Start: 02-04-2024 Sex Female (finding) [facility] Start: 1995 Sex Assigned At Female F [facility] Tobacco smoking stat [facility] Tobacco smoking consumption unknown [facility] Start: 06-02-2022 Gender identity Identifies as female gender (finding) [facility] Start: 08-15-2024 [facility] Start: 08-15-2024 Tobacco use and exposure User of smokeless tobacco [facility] History of Present illness Narrative 08-15-2024 Pricilla Briseno MD - 08/15/2024 10:00 AM EDT Note Date & Type Note Facility 08-15-2024 History of Presen t illness Narrative Deion Cummings is a very pleasant 29 y.o. year old female who comes to the office today with the chief complaint of concern about environmental allergies. Referred by Dr. Mike Osullivan She had COVID in Jan and after that she has noticed that when she lays in bed she will have nasal airway obstruction. She has no nasal itching or sneeze but does have some rhinorrhea. She does feel that she will have thick drainage sometimes. She feels that she has water in her ears and her outer canal is very itchy and flaky. The patient denies having any seasonal pattern to these allergy symptoms but instead notes the symptoms tend to be present year round with little seasonal variation. She feels that dog is a trigger for her symptoms. She has hives around her dog. She has tried Flonase and this made her about 20% better. She has a history of asthma but has not had symptoms recently. She last used her albuterol about 4 days ago. The patient appears comfortable in the office today. Lungs are clear to auscultation bilaterally. The oral mucosa is pink and healthy without any lesions or ulcers. The palate elevates in the midline. The nasal mucosa is pale and congested with a moderate amount of turbinate engorgement and clear rhinorrhea. No polyps or epistaxis is noted. The skin is clear of any rashes, lesions, or ulceration/excoriation. Based on the HPI and physical exam, it is medically necessary to perform allergy skin testing today to differentiate if the patients symptoms are allergic in nature and devise a treatment plan. This is a separate procedure from the time spent on the EM encounter. As the patient has not taken any antihistamines within the past five days, we will proceed with skin testing today. Skin testing in the office today performed under direct physician supervision showed positive testing for pet dander dust mite mold spores and tree and grass pollen in the setting of a positive histamine control. Spirometry performed in office today under direct physician supervision shows an FEV1 of 69 percent of ideal with a restrictive pattern. Exhaled nitric oxide is normal at 15 parts per billion. Asthma control test is 20 in the office today. IMPRESSION: Mild intermittent asthma - We agreed to change her albuterol to Symbicort and I explained the importance of anti-inflammatory reliever therapy to the patient. Chronic rhinitis - We reviewed avoidance measures for pet dander dust mite mold spores and tree pollen and grass. We agreed she would try a combination of nasal fluticasone and intranasal azelastine and follow up in 2 months for reassessment and to consider allergen immunotherapy if her symptoms are persistent at that time. documented in this encounter [facility] Evaluation note Note Date & Type Note Facility Evaluation note Diagnosis Abnormal menstrual periods documented in this encounter [facility] Work Phone: Evaluation note Note Date & Type Note Facility Evaluation note No assessment information availa [facility] Work Phone: Evaluation note Note Date & Type Note Facility Evaluation note Diagnosis Asthma, allergic, mild intermittent, uncomplicated (CMS/HCC)- Primary Chronic rhinitis documented in this encounter [facility] Summary Purpose Family History No Family History Records Found Relationship Condition Age at Onset Recorded Date/T samuel father Atrial fibrillation Unknown Diabetes mellitus Unknown Heart disease Unknown Hypertension Unknown mother Chronic obstructive pulmonary disease Unk nown Advance Directives No Advanced Directives Records FoundDocuments on File Type Date Recorded Patient Vocational Rehabilitation Technician Expl anation Advance Directives and Living Will Power of Mobile Ui/Ux Designer Latest Code Status on File Code Status Date Activated Date Inactivated Comments Full Code 11/28/2018 11:54 PM Full Code 11/25/2018 5:09 AM 11/25/2018 10:15 PM Full Code 11/25/2018 3:30 AM 11/25/2018 5:09 AM Documents on File Type Date Recorded Patient Vocational Rehabilitation Technician Expl anation ACP-Advance Directive ACP-Power of Mobile Ui/Ux Designer Latest Code Status on File Code Status Date Activated Date Inactivated Comments Full Code 11/28/2018 11:54 PM 11/30/2018 4:25 PM Documents on File Type Date Recorded Patient Vocational Rehabilitation Technician Expl anation Advance Directives and Livin g [...] through Care Everywhere. * : Vaginal Bleeding (Japanese) documented in this encounter History of Present [...] backin bed. * Argenis Daniel [facility] - 11/30/2018 7:23 AM EDT [facility] Department Pharmacy Vancomycin Consult: Vancomycin [...] bedside at this time. Patient resides in [place] with her parents. She uses no DME and has no outside services or community resources currently in place. Patient is employed at [employer] but is currently off work. Patient does drive, provides for her own transportation needs. PCP is Dr. Osullivan. Patient denies having difficulty with affording her medications. Plan for Patient is home upon discharge. She is interested in pursuing Advanced Directives. Educational pamphlet provided at this time. Referral made to [facility] to follow up with this request. PATCHER HELPER to monitor for discharge needs and assist as they arise. ULICES [place] 11/29/2018 * Florinda Muir RN - 11/29/2018 11:09 AM EDT Unsuccessful attempt x2 for new IV access. Electronics Recycler called and will be up to attempt. [...] 5. Fluid Accumulation-Mild fluid accumulation, Extremities 6. Television Camera Operator Strength-Not measured Nutrition Risk Level: Moderate, Low [...] Change: , none significant per available data. [place] Body Wt: 145 lb (65.8 kg), % [place] Body 255% BMI Classification: BMI > or [...] Pertinent Labs, Weight, Patient/Family Education Contact Number: [phone] * Florinda Muir RN - 11/29/2018 8:30 AM EDT Assistant Restaurant General Manager called into room by lab, patient c/o pain at IV site. LUE swollen and harder to touch. IV turned off at this time and ice pack applied. * Padmaja Montano RN - 11/29/2018 12:28 AM EDT Spoke with Dr. Horton regarding pharmacist call about antibiotics. Orders received to modify per pharmacy recommendation. * Padmaja Mnotano RN - 11/29/2018 12:18 AM EDT Spoke with Dr. Pond regarding consult to GENERAL PARTNER. She is aware of patient, and will speak with Andres DOW in the morning. * Epi Jacques [facility] - 11/28/2018 9:25 PM EDT [...] continue to follow. Epi Jacques [facility] 11/28/2018 9:25 PM documented in this encounter [...] section and content) DATE CREATED AUTHOR 11/17/2018 [facility] DATE CREATED AUTHOR AUTHOR'S ORGANIZ ATION 12/04/2018 [facility] DATE CREATED AUTHOR AUTHOR'S ORGANIZ ATION 04/30/2021 [facility] DATE CREATED AUTHOR AUTHOR'S ORGANIZ ATION 05/14/2022 [facility] dical Specialist DATE CREATED AUTHOR AUTHOR'S ORGANIZ ATION 07/21/2022 [facility] DATE CREATED AUTHOR AUTHOR'S ORGANIZ ATION 08/14/2023 [facility] DATE CREATED AUTHOR AUTHOR'S ORGANIZ ATION 06/09/2024 [facility] DATE CREATED AUTHOR AUTHOR'S ORGANIZ ATION 08/18/2024 [facility] dical Specialists EPIC Reason for Visit (unrecogniz ed section and content) Reason Comments Fatigue BEGAN 1730 TODAY, po st x3 days, baby born at 22 weeks, Chills Fever Status Reason Specialty Diagnoses / Procedures Referre d By Contact Referred To Contact Diagnoses Sepsis (HCC) Sepsis (HCC) Brenton Horton MD [address] [place] [address], [place] [address] [facility] Reason Comments Vaginal Bleeding Reason Comments new patient Pt states which ever side she lays her head done at night she gets congested. Zo Bee RN - 09/17/2018 12:03 AM EDT ED Notes (unrecognized secti on and content) Bleeding started within the last hour, pt is 11weeks and 5 days. Pt states bleeding is only when she wipes after using the rest room. documented in this encounter Care Teams (unrecognized sec tion and content) Car Hopper Relationship Specialty Start Date End Date Mike Osullivan MD [address] [place] [address] PCP - General Family Medicine 11/24/18 Team Status: Active Member Role Status Dates Mike Osullivan MD Primary Care Provider Active Team Status: Inactive Member Role Status Dates Mike Osullivan MD Primary Care Provider Active Start: February 04, 2024 End: February 04, 2024 Marina Green APRN Attending Provider Active Start: February 04, 2024 End: February 04, 2024 Car Hopper Relationship Specialty Start Date End Date Mike Osullivan MD PCP - General Family Medicine 06/21/24 Car Hopper Relationship Specialty Start Date End Date Mike Osullivan MD PCP - General Family Medicine 06/21/24 Goals (unrecognized section and content) Goals may [...] BE BASED ON THE PRIMARY CLINICAL RECORDS. [employer] [facility]. provides no warranty or guarantee of the accuracy or completeness of information in this document.
--- NOTE | 2024-08-18 18:21 | ED.EXTPRO1 ---
HPI - Extremity Problem General Chief complaint: Extremity Problem, Nontraumatic Stated complaint: LE PAIN Time Seen by Provider: 08/18/24 18:10 Source: patient Mode of arrival: walk-in Limitations: no limitations History of Present Illness HPI Narrative: Patient is a 29-year-old female with a history of cellulitis who presents to the emergency department for a 1 day history of redness to the right anterior calf. She states earlier this morning she noticed a red rash-like area to the right anterior calf and now throughout the day the calf has become more red. She has not had any fevers, drainage from the area. She denies any pain. She had leftover Keflex from a different infection at home and states she took 1 Keflex today. She has no concern for . She denies any injury or trauma to the area. She denies any drainage from the leg. Related Data Previous Rx's ?Medication ?Instructions ?Recorded azithromycin 250 mg tablet See Rx Instructions PO .COMPLEX #6 01/22/24 (Zithromax Z-Will) tabs famotidine 20 mg tablet (Pepcid) 20 mg PO BID #10 tabs 01/22/24 ondansetron 4 mg disintegrating 4 mg PO Q8H PRN nausea and 01/22/24 tablet vomiting 24 hours #3 tabs amoxicillin 875 mg-potassium 1 tab PO Q12H #20 tabs 08/18/24 clavulanate 125 mg tablet ketorolac 10 mg tablet 10 mg PO TID PRN pain #10 tabs 08/18/24 Allergies Allergy/AdvReac Type Severity Reaction Status Date / Time docosanol (From Abreva) Allergy Mild SWELLING Verified 08/18/24 18:09 sulfamethoxazole (From Allergy Hives Verified 08/18/24 18:09 Bactrim) trimethoprim (From Bactrim) Allergy Hives Verified 08/18/24 18:09 Review of Systems ROS Constitutional Denies: fever or chills Ears, nose, mouth, and throat Denies: throat pain or nasal congestion Cardiovascular Denies: chest pain Respiratory Denies: shortness of breath or cough Gastrointestinal Denies: nausea or vomiting Integumentary/Breast Reports: rash, redness and skin swelling; Denies: skin pain or skin tenderness Hematologic/Lymphatic Denies: easy bruising or easy bleeding [facility] Medical History (Updated 08/18/24 @ 18:41 by MAURO Reyes) History of stress test ?Z92.89 - Personal history of other medical treatment (ICD-10) Low back pain ?M54.50 - Low back pain, unspecified (ICD-10) Anxiety ?F41.9 - Anxiety disorder, unspecified (ICD-10) Obesity ?E66.9 - Obesity, unspecified (ICD-10) Asthma ?J45.909 - Unspecified asthma, uncomplicated (ICD-10) Palpitations ?R00.2 - Palpitations (ICD-10) Surgical History History of wisdom tooth extraction ?K08.409 - Partial loss of teeth, unspecified cause, unspecified class (ICD-10) Social History Smoking status: Current every day smoker Little interest or pleasure in doing things: not at all Feeling down, depressed, or hopeless: not at all Exam Narrative Exam Narrative: Gen.: Awake, alert, in no distress Head: Normocephalic, atraumatic ENT: Moist mucous membranes Respiratory: No respiratory distress Extremities: Right lower extremity with blotchy erythema to the anterior tibia which is not circumferential. No red streaking noted. No open wounds or drainage. No extension of erythema to the ankle or to the right knee. Calves are soft and nontender bilaterally Psych: Normal mood and affect Neuro: No focal neuro deficit Skin: Warm, dry, intact Constitutional Vital Signs, click to edit/add: Last Vital Signs Temp 97.8 F 08/18/24 18:04 Pulse 99 H 08/18/24 18:04 Resp 20 08/18/24 18:04 BP 176/91 H 08/18/24 18:04 Pulse Ox 99 08/18/24 18:04 Course Vital Signs Vital signs: Vital Signs Temperature 97.8 F 08/18/24 18:04 Pulse Rate 99 H 08/18/24 18:04 Respiratory Rate 20 08/18/24 18:04 Blood Pressure 176/91 H 08/18/24 18:04 Pulse Oximetry 99 08/18/24 18:04 Temperature 97.8 F 08/18/24 18:04 Pulse Rate 99 H 08/18/24 18:04 Respiratory Rate 20 08/18/24 18:04 Blood Pressure 176/91 H 08/18/24 18:04 Pulse Oximetry 99 08/18/24 18:04 MDM - Extremity (Nontraumatic) MDM Narrative Medical decision making narrative: Patient with no fevers, tachycardia, leukocytosis in the emergency room. Symptoms began today, patient was encouraged not to use leftover Keflex and is started on Augmentin in the ER. She is encouraged to elevate the leg and recheck with primary care early next week. Return to the emergency department if symptoms change or worsen. At this time there is no circumferential erythema or other admission criteria. SUPERVISED APC VISIT, PHYSICIAN ATTESTATION: Based on the medical record the care appears appropriate. ? Medical Records Attestation: I reviewed the patient's medical records. Lab Data Attestation: I reviewed the patient's lab results. Labs: Lab Results 08/18/24 Range/Units 18:30 WBC 8.1 (4.0-11.0) 10^3/uL RBC 4.43 (4.20-5.40) 10^6/uL Hgb 12.4 (12.0-16.0) g/dL Hct 37.5 (36.0-48.0) % MCV 84.7 (81.0-99.0) fL MCH 28.0 (26.7-34.0) pg MCHC 33.1 (29.9-35.2) g/dL RDW 13.0 (11.0-15.0) % Plt Count 326 (150-450) 10^3/uL MPV 9.8 (9.5-13.5) fL Neut % (Auto) 70.1 (43.0-75.0) % Lymph % (Auto) 21.0 (20.5-60.0) % Chambers % (Auto) 5.9 (1.7-12.0) % Eos % (Auto) 1.9 (0.9-7.0) % Baso % (Auto) 0.5 (0.2-2.0) % Neut # (Auto) 5.7 (1.4-6.5) 10^3/uL Lymph # (Auto) 1.7 (1.2-3.8) 10^3/uL Chambers # (Auto) 0.5 (0.3-0.8) 10^3/uL Eos # (Auto) 0.2 (0.0-0.7) 10^3/uL Baso # (Auto) 0.0 (0.0-0.1) 10^3/uL Abs Immat Gran (auto) 0.05 H (0.00-0.03) 10^3/uL Imm/Tot Granulo (auto) 0.6 H (0.0-0.5) % Discharge Plan Discharge Chief Complaint: Extremity Problem, Nontraumatic Clinical Impression: Cellulitis of leg, right Patient Disposition: Home, Self-Care Time of Disposition Decision: 18:41 Condition: Good Prescriptions / Home Meds: New ketorolac 10 mg tablet 10 mg PO TID PRN (Reason: pain) Qty: 10 0RF amoxicillin-pot clavulanate 875-125 mg tablet 1 tab PO Q12H Qty: 20 0RF No Action ondansetron 4 mg tablet,disintegrating 4 mg PO Q8H PRN (Reason: nausea and vomiting) 1 Days Qty: 3 0RF famotidine [Pepcid] 20 mg tablet 20 mg PO BID Qty: 10 0RF azithromycin [Zithromax Z-Will] 250 mg tablet See Rx Instructions .ROUTE .COMPLEX Qty: 6 0RF Rx Instructions: For 250 mg dose pack: take 500 mg today (day 1), then 250 mg for 4 days (days 2-5) Print Language: Tamazight Instructions: Cellulitis (ED) Additional Instructions: Call Dr. Osullivan's office on Tuesday for recheck of the area to your leg. Elevate and rest as much as you can. The redness and swelling may get a little worse before it gets better, but if your symptoms continue to get worse over the next 2-3 days, please return to the emergency room to be reevaluated Referrals: Shashi Osullivan MD [Primary Care Provider, Family Practice] - 1 week
[2024-08-18 18:36] LABS: Basophils Percent Auto 0.5 % (0.2-2.0); Eosinophils Absolute Auto 0.2 10^3/uL (0.0-0.7); Eosinophils Percent Auto 1.9 % (0.9-7.0); Hematocrit 37.5 % (36.0-48.0); Hemoglobin 12.4 g/dL (12.0-16.0); Immature Granulocytes Abs Auto 0.05 10^3/uL (0.00-0.03); Immature Granulocytes Pct Auto 0.6 % (0.0-0.5); Lymphocytes Absolute Auto 1.7 10^3/uL (1.2-3.8); Mean Corpuscular HGB Conc 33.1 g/dL (29.9-35.2); Mean Corpuscular Volume 84.7 fL (81.0-99.0); Mean Platelet Volume 9.8 fL (9.5-13.5); Monocytes Absolute Auto 0.5 10^3/uL (0.3-0.8); Monocytes Percent Auto 5.9 % (1.7-12.0); Neutrophils Absolute Auto 5.7 10^3/uL (1.4-6.5); Neutrophils Percent Auto 70.1 % (43.0-75.0); Platelet Count 326 10^3/uL (150-450); Red Blood Count 4.43 10^6/uL (4.20-5.40); White Blood Count 8.1 10^3/uL (4.0-11.0)
[2024-08-18] MEDS: AMOXICILLIN/POT CLAV 875-125 MG TABLET 1 TAB PO (18:38)
[2024-08-18 18:45] LABS: Anion Gap 12.2; BUN Creatinine Ratio 15.9; Calcium 8.9 mg/dL (8.5-10.1); Carbon Dioxide 27.7 mmol/L (21.0-32.0); Chloride 105 mmol/L (98-107); Estimated GFR (African America >60 (>=60 mL/min/1.73m^2); Estimated GFR (Non-African Ame >60 (>=60 mL/min/1.73m^2); Glucose 115 mg/dL (74-106); Potassium 3.9 mmol/L (3.5-5.1); Sodium 141 mmol/L (136-145)
[2024-08-18 18:58] VITALS: BP 140/80; PULSE 86; TEMP 36.6; O2SAT 100
== END 2024-08-18 19:00 | disposition home or self-care (01) ==
PROVIDERS: Physician Assistant; Emergency Provider Emergency Medicine; PCP Family Medicine
DX: L03.115 Cellulitis of right lower limb (principal); L53.8 Other specified erythematous conditions
CPT/HCPCS: 36415; 80048; 85025; 99283

== ENCOUNTER 2024-09-28 11:58 | Outpatient (RCR) | payer OTHER, SELFPAY | END 2024-12-21 09:18 | disposition home or self-care (01) | LOC: OT 11:58 | PROVIDERS: PCP Family Medicine; Visit Provider Family Medicine | DX: I89.0 Lymphedema, not elsewhere classified (principal) | CPT/HCPCS: 97140; 97166; 97530 ==